=== PATIENT | female | born 1990 | race Caucasian/White ===

== ENCOUNTER 2017-01-05 14:13 | Emergency (ER) | payer SELFPAY ==
[~2017-01-05] VITALS: Ht 149.9 cm; Wt 89.8 kg
[~2017-01-05 14:13] MED LIST: ACHD5005 PO; ACYC-109 PO; BENZ100C8 PO; BUDE6HFA IH; CEFD300C3 PO; CITA40TA19 PO; CPR500T PO; FLT05NA16 NSEACH; GUAN1TAB PO; HYDR-2858 PO; HYDR-700 PO; HYDR50SY PO; LEVO200T30 PO; LIDO20SO20 PO; LORA1TAB59 PO; LURA60TA PO; ONDAN4ODT PO; PHEN100T17 PO; PRD20T PO; RIZA10TA25 PO; SULF1TAB7 PO; TRAZ150T42 PO; TRM50T PO; VALA100033 PO; ZLP5T PO; [UNRECOGNIZED DRUG - CODE] IH
--- NOTE | 2017-01-05 15:08 | ED Headache ---
General Chief Complaint: Head/Cervical Problems Stated Complaint: MIGRANE,VOMITTING Source: patient Exam Limitations: no limitations History of Present Illness Time seen by provider: 15:07 Initial Comments To ER with a global headache associated with vomiting for the past 4 days. This is characteristic of her frequent migraines. She denies any fevers or chills. Pain is on the back of her head and left side of her head which is typical of her headaches. Slow in onset, not sudden. She did not go to the [facility] walk-in clinic because she states she did not have the $25 that they require upfront. Timing/Duration: constant Severity/Quality: moderate Location: global Prior Headaches/Recent Trauma: frequent headaches Associated Symptoms: No confusion, No fatigue, No facial pain, No fever/chills , No flushing, nausea/vomiting, No nasal congestion, No nasal drainage, No numbness in legs/feet Allergies and Home Medications Allergies Coded Allergies: Sulfa (Sulfonamide Antibiotics) (Unverified Allergy, Unknown, 07/25/14) penicillin G (Verified Allergy, Unknown, 07/25/14) Home Medications Budesonide/Formoterol Fumarate 1 Inhaler Aero, Unknown Dose IH RTBID, (Reported) Citalopram Hydrobromide 40 Mg Tablet, 1 EACH PO DAILY, (Reported) Guanfacine Hcl 1 Mg Tablet, 1 MG PO TID, (Reported) Hydroxyzine Hcl 50 Mg Tablet, 50 MG PO TID, (Reported) Levothyroxine Sodium 200 Mcg Tablet, 225 MCG PO DAILY, (Reported) Loxapine 10 Mg Aer.pow.ba, 10 MG IH UD, (Reported) Trazodone Hcl 150 Mg Tablet, 150 MG PO DAILY, (Reported) Zolpidem Tartrate 5 Mg Tablet, Unknown Dose PO HS, (Reported) Constitutional: see HPI Eyes: No Symptoms Reported Ears, Nose, Mouth, Throat: no symptoms reported Respiratory: no symptoms reported Cardiovascular: no symptoms reported Genitourinary: no symptoms reported Musculoskeletal: no symptoms reported Skin: no symptoms reported Psychiatric/Neurological: See HPI, Headache Past Hkyszff-Igrngx-Vmyrjl Hx Patient Social History Recent Foreign Travel: No Contact w/Someone Who Travel: No Seasonal Allergies Seasonal Allergies: No Surgeries HX Surgeries: Yes (ORBITAL/FACIAL RECONSTRUCTION,MOLE REMOVALS,WISDOM TEETH REMOVAL, I&D'S) Respiratory Hx Respiratory Disorders: Yes Respiratory Disorders: Asthma, Chronic Bronchitis Cardiovascular Hx Cardiac Disorders: No Neurological Hx Neurological Disorders: Yes Neurological Disorders: Concussion, Headaches /Migraines Reproductive System Sexually Transmitted Disease: Yes (HERPES) Female Reproductive Disorders: Denies Genitourinary Hx Genitourinary Disorders: No Gastrointestinal Hx Gastrointestinal Disorders: Yes Gastrointestinal Disorders: Gastroesophageal Reflux Musculoskeletal Hx Musculoskeletal Disorders: No Endocrine Hx Endocrine Disorders: Yes Endocrine Disorders: Hypothyroidsim HEENT HX ENT Disorders: No Cancer Hx Cancer: No Psychosocial Hx Psychiatric Problems: Yes (PANIC ATTACKS) Behavioral Health Disorders: ADD/ADHD, Sleep Difficulties, Anxiety, Bipolar, Depression Integumentary HX Skin/Integumentary Disorder: Yes (ORAL AND GENITAL, "STAPH" AXILLARY ABSCESS ) Skin/Integumentary Disorders: Herpes Blood Transfusions Hx Blood Disorders: No Adverse Reaction to a Blood Tr: No Physical Exam Vital Signs Capillary Refill : General Appearance: WD/WN, no apparent distress HEENT: PERRL/EOMI, normal ENT inspection, TMs normal Neck: non-tender, full range of motion Cardiovascular: regular rate, rhythm, no murmur Respiratory: normal breath sounds, no respiratory distress, no accessory muscle use Gastrointestinal: normal bowel sounds, non tender, soft Extremities: normal range of motion, non-tender Psychiatric: alert, oriented x 3 Crainal Nerves: normal hearing, normal speech, PERRL Skin: normal color, warm/dry Progress/Results/Core Measures Results/Orders My Orders Orders - ELANA GRIJALVA APRN Prochlorperazine Injection (Compazine In (01/05/17 15:15) Diphenhydramine Injection (Benadryl Inje (01/05/17 15:15) Ketorolac Injection (Toradol Injection) (01/05/17 15:15) Departure Impression Impression: Primary Impression: Headache Disposition: 01 HOME, SELF-CARE Condition: Improved Departure-Patient Inst. Decision time for Depature: 15:09 Referrals: [facility] (PCP/Family) Primary Care Physician Patient Instructions: Headache, Adult (DC) Add. Discharge Instructions: 1. Follow-up with [facility] 2. Return to ER for any concerns All discharge instructions reviewed with patient and/or family. Voiced understanding. ELANA GRIJALVA APRN Jan 05, 2017 15:08
[2017-01-05] MEDS ORDERED: KETOROLAC 60 MG/2 ML VIAL IM ONE (15:15)
[2017-01-05] MEDS ORDERED: PROCHLORPERAZINE 10 MG/2ML INJ (COMPAZINE) IM ONE (15:15)
[2017-01-05] MEDS ORDERED: diphenhydrAMINE 50 MG/ML INJ (BENADRYL) IM ONE (15:15)
[2017-01-05] MEDS ORDERED: cloNIDine 0.1 MG (CATAPRES) TAB PO ONE (15:30)
[2017-01-05 16:21] VITALS: BP 165/114
== END 2017-01-05 16:22 | disposition home or self-care (01) ==
LOC: EDUNIT# 14:13 → ER 14:15
DX: R51 Headache (principal); Z79.899 Other long term (current) drug therapy
CPT/HCPCS: 96372; 99282

== ENCOUNTER 2018-02-03 13:12 | Emergency (ER) | payer SELFPAY ==
[~2018-02-03] VITALS: Ht 157.5 cm; Wt 40.4 kg
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
--- OUTSIDE RECORDS SUMMARY | 2018-02-03 13:18 | XMS REPORT ---
Author Author TEE CALLE Organization [facility] Address [address] [place] [address] Care Team Providers Care School Resource Officer Name Role Phone TEE CALLE Unavailable PROBLEMS Type Condition ICD9-CM Code WGS02-SM Code Onset Dates Condition Status SNOMED Code Problem Postoperative hypothyroidism E89.0 Active 61267246 Problem Obesity E66.9 Active 383049311 Problem Bipolar 2 disorder F31.81 Active 58439596 Problem Panic disorder [episodic paroxysmal anxiety] without agoraphobia F41.0 Active 22221728 Problem COLLEEN (generalized anxiety disorder) F41.1 Active 00755856 Problem Attention deficit disorder F90.0 Active 527540473 Problem Generalized anxiety disorder F41.1 Active 12099436 Problem Acne L70.9 Active 11671816 Problem Hypertension I10 Active 06402807 ALLERGIES No Information SOCIAL HISTORY Never Assessed PLAN OF CARE VITAL SIGNS MEDICATIONS Medication Instructions Dosage Frequency Start Date End Date Duration Status Concerta 27 MG Orally Once a day for ADHD 1 tablet in the morning Nov 28 days Active RESULTS No Results PROCEDURES No [...]
--- OUTSIDE RECORDS SUMMARY | 2018-02-03 13:19 | XMS REPORT ---
Author Author LUC TEE 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 Name Role Phone TEE CALLE Unavailable PROBLEMS Type Condition ICD9-CM Code VVQ05-NA Code Onset Dates Condition Status SNOMED Code Problem Acne L70.9 Active 54922226 Problem Sciatica of right side M54.31 Active 44450101 Problem Panic disorder [episodic paroxysmal anxiety] without agoraphobia F41.0 Active 17071157 Problem Attention-deficit hyperactivity disorder, predominantly inattentive type F90.0 Active 04620132 Problem Current nonadherence to medical treatment Z91.19 Active 7396873 Problem Acquired hypothyroidism E03.9 Active 667434912 Problem Essential hypertension I10 Active 61523709 Problem Primary insomnia F51.01 Active 0328942 Problem Migraine with aura and without status migrainosus, not intractable G43.109 Active 2134772 Problem Abnormal liver function K76.89 Active 69742780 Problem Obesity E66.9 Active 809956409 Problem Bipolar 2 disorder F31.81 Active 62450333 Problem Postoperative hypothyroidism E89.0 Active 30588138 Problem Generalized anxiety disorder F41.1 Active 73625123 ALLERGIES No Information ENCOUNTERS Encounter Location Date Diagnosis [facility] [id number], [place] [address] Dec, [facility] [address], [place] [address] Nov, Normal physical exam Z00.00 and Enlarged lymph node R59.9 [facility] [id number] [place] [address] 29975- 5216 Nov, Enlarged lymph node R59.9 ; Abnormal liver function K76.89 and Hypothyroid E03.9 [facility] [address] [place] [address] 81075- 1508 Oct, Bipolar 2 disorder F31.81 [facility] [address] [place] [address] 41133- 1082 Oct, Sciatica of right side M54.31 and Essential hypertension I10 [facility] [id number] [place] [address] 67053- 4959 Oct, [facility] [id number] [place] [address] 29400- 4690 Aug, Hypothyroid E03.9 [facility] [id number] [place] [address] 02278- 7722 Aug, [facility] [id number] [place] [address] 82969- 3587 Aug, Bipolar 2 disorder F31.81 [facility] [id number] [place] [address] 19509- 3746 Aug, Abnormal liver function K76.89 [facility] [id number] [place] [address] 84113- 4657 Jul, Bipolar 2 disorder F31.81 [facility] [id number] [place] [address] 19949 -4496 Jul, [facility] [id number] [place] [address] 21489- 9951 Jul, Bipolar 2 disorder F31.81 ; Generalized anxiety disorder F41.1 ; Attention-deficit hyperactivity disorder, predominantly inattentive type F90.0 and Current nonadherence to medical treatment Z91.19 [facility] [id number] [place] [address] 49592 -8740 14 Jul, 2017 Essential hypertension I10 ; Other viral agents as the cause of diseases classified elsewhere B97.89 ; Acute upper respiratory infection, unspecified J06.9 and BMI 40.0-44.9, adult Z68.41 [facility] [id number] [place] [address] 77831- 1530 Jul, [facility] [id number] [place] [address] 90155- 2462 Jul, [facility] [id number] [place] [address] 31049- 1166 Jun, [facility] [id number] [place] [address] 36890- 8268 Jun, [facility] [address] 70292- 0796 Jun, Dysuria R30.0 ; Urinary tract infection, site not specified N39.0 ; Hematuria, unspecified R31.9 ; Sciatica of right side M54.31 ; Migraine with aura and without status migrainosus, not intractable G43.109 ; Primary insomnia F51.01 ; Essential hypertension I10 and Acquired hypothyroidism E03.9 [facility] [id number] [place] [address] 27589- 4425 Jun, Bipolar 2 disorder F31.81 [facility] [id number] [place] [address] 18737- 9280 Jun, Bipolar 2 disorder F31.81 [facility] [id number] [place] [address] 54594- 1538 May, Sore throat J02.9 ; Acute serous otitis media of left ear, recurrence not specified H65.02 and Hypertension I10 [facility] [id number] [place] [address] 14078- 5065 May, Bipolar 2 disorder F31.81 [facility] [id number] [place] [address] 62442- 3019 Apr, [facility] [id number] [place] [address] 51515- 1623 Apr, Bipolar 2 disorder F31.81 [facility] [id number] [place] [address] 71672- 9527 Mar, [facility] [id number] [place] [address] 21113- 1546 Feb, Bipolar 2 disorder F31.81 ; Attention deficit disorder F90.0 ; COLLEEN (generalized anxiety disorder) F41.1 and Panic disorder [episodic paroxysmal anxiety] without agoraphobia F41.0 [facility] [address] [address] 6[address] January, Bipolar 2 disorder F31.81 [facility] [id number] [place] [address] 15829- 5943 Dec, [facility] [id number] [place] [address] 26135- 2689 Dec, [facility] [id number] [place] [address] 99669- 3191 Dec, [facility] [id number] [place] [address] 28475- 9424 Dec, Generalized anxiety disorder F41.1 ; Bipolar 2 disorder F31.81 and Panic disorder [episodic paroxysmal anxiety] without agoraphobia F41.0 [facility] [id number] [address]- 2163 Dec, [facility] [id number] [place] [address] 64492- 5486 Dec, [facility] [id number] [place] [address] 57923- 9470 Nov, [facility] [id number] [place] [address] 40011- 4737 Nov, [facility] [id number] [place] [address] 39731- 9824 Nov, [facility] [id number] [place] [address] 70791- 9542 Oct, [facility] [id number] [place] [address] 33498- 9402 Oct, [facility] [id number] [place] [address] 47161- 5182 Oct, [facility] [address] [address]- 8806 Oct, [facility] [address], [place] [address]- 0096 Oct, [facility] [id number] [address]- 0266 Sep, Bipolar 2 disorder F31.81 ; COLLEEN (generalized anxiety disorder) F41.1 ; Attention deficit disorder F90.0 and Panic disorder [episodic paroxysmal anxiety] without agoraphobia F41.0 [facility] [id number] [place] [address] 92762- 7513 Sep, [facility] [id number] [address]- 0753 Sep, [facility] [id number] [place] [address] 79839- 7133 Sep, [facility] [address] 7[address] Aug, [facility] [id number] 5233 Aug, [facility] [address] 1828 Aug, [facility] [address] [address] Aug, [facility] [address], [place] [address]- 0844 Jul, [facility] [id number], [place] [address]- 0237 Jul, [facility] [address], [place] [address]- 6346 Jul, [facility] [address], [place] [address]- 8816 Jun, [facility] [id number] [place] [address] 37441- 4474 Jun, Bipolar 2 disorder F31.81 ; Attention deficit disorder F90.0 ; COLLEEN (generalized anxiety disorder) F41.1 and Panic disorder [episodic paroxysmal anxiety] without agoraphobia F41.0 [facility] [id number] [place] [address] 44301- 1569 Jun, [facility] [address] 31523- 3658 Jun, [facility] [address] 42495- 7144 Jun, Right foot pain M79.671 and Nausea and vomiting in adult R11.2 [facility] [address] 99204- 7779 May, [facility] [address] 86516- 3818 May, Other sinusitis, unspecified chronicity J32.9 ; Environmental allergies Z91.09 ; Other chronic pain G89.29 and Sacrococcygeal disorders, not elsewhere classified M53.3 [facility] [id number] [place] [address] 65067 -5798 May, Acute non-recurrent pansinusitis J01.40 and Gastroenteritis K52.9 [facility] [id number] [place] [address] 08261- 7857 May, [facility] [id number] [place] [address] 41664- 1107 May, [facility] [address] 75127- 0624 Apr, Bronchitis J40 [facility] [id number] [place] [address] 88275- 2288 Apr, [facility] [address] 39241- 6300 Apr, [facility] [address], [place] [address]- 3873 Apr, [facility] [id number] [place] [address] 64604 -0636 Apr, Nausea and vomiting in adult R11.2 [facility] [id number] [place] [address] 68002- 5540 Apr, Nausea and vomiting in adult R11.2 [facility] [id number] [place] [address] 26904- 2118 Apr, Bipolar 2 disorder F31.81 ; Generalized anxiety disorder F41.1 ; Panic disorder [episodic paroxysmal anxiety] without agoraphobia F41.0 ; Attention deficit disorder F90.0 and COLLEEN (generalized anxiety disorder) F41.1 [facility] [id number] [place] [address] 92334- 8182 Apr, [facility] [id number] [place] [address] 60133- 5746 Mar, [facility] [id number] [place] [address] 87621- 0231 Mar, [facility] [id number] [place] [address] 41836- 3193 Mar, [facility] [id number] [place] [address] 84084- 4152 Mar, Bipolar 2 disorder F31.81 ; Attention deficit disorder F90.0 ; COLLEEN (generalized anxiety disorder) F41.1 and Panic disorder [episodic paroxysmal anxiety] without agoraphobia F41.0 [facility] [address] [place] [address] 87812- 0664 Mar, [facility] [address] [place] [address] 36499- 6749 Feb, Bipolar 2 disorder F31.81 ; Generalized anxiety disorder F41.1 and Attention deficit disorder F90.0 [facility] [id number] [place] [address] 25337- 1025 Feb, Generalized anxiety disorder F41.1 [facility] [id number] [place] [address] 80424- 7295 Feb, Generalized anxiety disorder F41.1 ; Attention deficit disorder F90.0 and Bipolar 2 disorder F31.81 [facility] [id number] [place] [address] 54458- 4660 Feb, Bipolar 2 disorder F31.81 ; Generalized anxiety disorder F41.1 ; Attention deficit disorder F90.0 and Insomnia, unspecified type G47.00 [facility] [id number] [place] [address] 02386- 7166 Feb, Excessive sweating R61 and Breast lump in upper outer quadrant N63 [facility] [id number] [place] [address] 76413 -3385 January, Low back pain M54.5 ; Other chronic pain G89.29 and Urinary tract infection, site unspecified N39.0 [facility] [id number] [place] [address] 43564- 7380 January, Bipolar II disorder F31.81 [facility] [id number] [place] [address] 35737- 2286 January, [facility] [id number] [place] [address] 82761- 1394 January, Insomnia, unspecified type G47.00 and Grief F43.20 [facility] [id number] [place] [address] 17156- 8805 January, [facility] [id number] [place] [address] 96922- 2662 Dec, [facility] [id number] [place] [address] 62980- 5012 Dec, [facility] [id number] [place] [address] 03586- 6959 Dec, Bipolar 2 disorder F31.81 ; Generalized anxiety disorder F41.1 and Attention deficit disorder F90.0 [facility] [id number] [place] [address] 13304- 7186 Dec, Sinusitis J32.9 [facility] [id number] [place] [address] 06620- 4261 14 Dec, 2015 Sinusitis J32.9 and Hypothyroid E03.9 [facility] [address] 97489- 8933 Dec, [facility] [address] 45390 -0063 Dec, Cough R05 and Allergic rhinitis J30.9 [facility] [address] 90435- 2397 Nov, Hypertension I10 ; Obesity E66.9 and Acne L70.9 [facility] [id number] [place] [address] 31910- 0827 Nov, [facility] [address] 88301- 2809 Oct, [facility] [id number] [place] [address] 93496- 4122 Oct, [facility] [address] 77013- 6821 Oct, [facility] [id number] [place] [address] 20105- 9073 Oct, [facility] [address] 04017- 5290 Sep, Lymphadenitis I88.9 ; Essential hypertension I10 and Acne, unspecified acne type L70.9 [facility] [id number] [place] [address] 52704- 9401 Sep, [facility] [address], [place] [address]- 6829 Sep, [facility] [id number] [place] [address] 05279- 6569 Sep, [facility] [id number] [place] [address] 00780- 1856 Sep, Acquired hypothyroidism E03.9 [facility] [id number] [place] [address] 09855- 3071 Aug, Acquired hypothyroidism E03.9 [facility] [id number] [place] [address] 72587- 4407 Aug, Furuncle L02.92 [facility] [id number] [place] [address] 32674- 9674 Aug, [facility] [id number] [place] [address] 91991- 7056 Aug, Bipolar 2 disorder F31.81 ; Generalized anxiety disorder F41.1 ; Attention deficit disorder F90.0 and Obesity E66.9 [facility] [id number] [place] [address] 87092- 3405 Aug, [facility] [id number] [place] [address] 77055- 7470 Aug, [facility] [id number] [place] [address] 97248- 2225 Aug, Acquired hypothyroidism E03.9 [facility] [id number] [place] [address] 20544- 0567 Jul, Acquired hypothyroidism E03.9 ; Upper respiratory tract infection, unspecified type J06.9 and Nonintractable migraine, unspecified migraine type G43.009 [facility] [address], [place] [address]- 0547 14 Jun, 2015 Acute pharyngitis, unspecified J02.9 [facility] [id number] [place] [address] 81736- 6661 May, Bipolar II disorder 296.89 ; Attention deficit disorder of childhood without mention of hyperactivity 314.00 ; Generalized anxiety disorder 300.02 and Morbid obesity with BMI of 45.0-49.9, adult 278.01 [facility] [address], [place] [address]- 1116 May, Sinusitis 473.9 [facility] [id number] [place] [address] 62007- 0556 Apr, [facility] [id number] [place] [address] 71318- 8316 Mar, [facility] [id number] [place] [address] 57043- 2466 Mar, Bipolar II disorder 296.89 ; Generalized anxiety disorder 300.02 ; Obesity, unspecified 278.00 and Attention deficit disorder 314.00 [facility] [id number] [place] [address] 85872- 5736 Feb, [facility] [id number] [place] [address] 34887- 1746 January, [facility] [id number] [place] [address] 19228- 5416 January, [facility] [id number] [address]- 0856 January, [facility] [id number] [place] [address] 16444- 2546 January, [facility] [id number] [place] [address] 84327- 6946 Dec, [facility] [id number] [place] [address] 99339- 1386 Dec, [facility] [id number] [address]- 2546 30 Nov, 2014 [facility] [id number] [place] [address] 52967- 5286 Nov, [facility] [place] [facility] [address] [id number] [place] [address]- 5873 18 Nov, 2014 [facility] [place] [facility] [address] [id number] [place] [address]- 4169 11 Nov, 2014 [facility] [place] [facility] [address] [id number] [place] [address]- 9278 Nov, [facility] [place] [facility] [address] [id number] [place] [address]- 9446 Nov, [facility] [place] [facility] [address] [id number] [place] [address]- 6377 11 Nov, 2014 [facility] [place] [facility] [address] [id number] [place] [address]- 3590 Nov, [facility] [place] [facility] [address] [id number] [place] [address]- 0365 Nov, [facility] [place] [facility] [address] [id number] [place] [address]- 3914 Nov, [facility] [place] [facility] [address] [id number] [place] [address]- 7565 10 Nov, 2014 [facility] [place] [facility] [address] [id number] [place] [address]- 6001 Nov, [facility] [place] [facility] [address] [id number] [place] [address]- 0160 Nov, [facility] [place] [facility] [address] [id number] [place] [address]- 2819 Nov, [facility] [place] [facility] [address] [id number] [place] [address]- 8731 Oct, [facility] [place] [facility] [address] [id number] [place] [address]- 0516 Oct, [facility] [place] [facility] [address] [id number] [place] [address]- 5008 Oct, [facility] [place] [facility] [address] [id number] [place] [address]- 6660 Oct, 2014 [facility] [place] [facility] [address] [id number] [place] [address]- 8326 Oct, 2014 [facility] [place] [facility] [address] [id number] [place] [address]- 3696 Oct, 2014 [facility] [place] [facility] [address] [id number] [place] [address]- 0716 Oct, 2014 [facility] [place] [facility] [address] [id number] [place] [address]- 9894 Oct, 2014 [facility] [place] [facility] [address] [id number] [place] [address]- 9546 Oct, 2014 [facility] [place] [facility] [address] [id number] [place] [address]- 1887 Oct, 2014 [facility] [place] [facility] [address] [id number] [place] [address]- 5664 Oct, [facility] [place] [facility] [address] [id number] [place] [address]- 3727 Oct, [facility] [place] [facility] [address] [id number] [place] [address]- 6695 Sep, [facility] [place] [facility] [address] [facility] [id number] [place] [address]- 3288 Sep, [facility] [place] [facility] [address] [id number] [place] [address] Sep, [facility] [place] [facility] [address] [id number], [place] [address] Sep, [facility] [place] [facility] [address] [id number] [place] [address] Sep, [facility] [place] [facility] [address] [id number] [place] [address] Sep, [facility] [place] [facility] [address] [id number] [place] [address] Sep, [facility] [place] [facility] [address] [id number] [place] [address] Sep, [facility] [place] [facility] [address] [id number] [place] [address] Aug, [facility] [place] [facility] [address] [id number] [place] [address] Aug, [facility] [place] [facility] [address] [id number] [place] [address] Aug, [facility] [place] [facility] [address] [id number] [place] [address] Aug, [facility] [place] [facility] [address] [id number] [place] [address] Aug, [facility] [place] [facility] [address] [id number] [place] [address] Aug, [facility] [place] [facility] [address] [id number] [place] [address] Aug, [facility] [place] [facility] [address] [id number] [place] [address] Aug, [facility] [place] [facility] [address] [id number] [place] [address] Aug, [facility] [place] [facility] [address] [id number] [place] [address] Aug, [facility] [place] [facility] [address] [id number] [place] [address] Aug, [facility] [place] [facility] [address] [id number] [place] [address] Aug, [facility] [place] [facility] [address] [id number] [place] [address] Aug, [facility] [place] [facility] [address] [id number] [place] [address] Aug, [facility] [place] [facility] [address] [id number] [place] [address] 13 Jul, 2014 [facility] [place] [facility] [address] [id number] [place] [address] Jul, [facility] [place] [facility] [address] [id number] [place] [address] Jul, [facility] [place] [facility] [address] [id number] [place] [address] Jul, [facility] [place] [facility] [address] [id number] [place] [address] Jul, [facility] [place] [facility] [address] [id number] [place] [address] Jul, [facility] [place] [facility] [address] [id number] [place] [address] Jul, [facility] [place] [facility] [address] [id number] [place] [address] Jul, [facility] [place] [facility] [address] [id number] [place] [address] Jul, [facility] [place] [facility] [address] [id number] [place] [address] Jul, [facility] [place] [facility] [address] [facility] [id number] [place] [address] Jul, [facility] [place] [facility] [address] [id number] [place] [address] 03 Jul, 2014 [facility] [place] [facility] [address] [id number], [place] [address] 16 Jun, 2014 [facility] [place] [facility] [address] [id number] [place] [address] 3595 16 Jun, 2014 [facility] [place] [facility] [address] [id number] [place] [address]- 4[address] 15 Jun, 2014 [facility] [place] [facility] [address] [id number][place] [address] 132[address] 14 Jun, 2014 [facility] [place] [facility] [address] [id number] [place] [address] 90[address] 14 Jun, 2014 [facility] [place] [facility] [address] [id number] [place] [address]- 5582 14 Jun, 2014 [facility] [place] [facility] [address] [id number] [place] [address]- 2813 14 Jun, 2014 [facility] [place] [facility] [address] [id number] [place] [address]- 2414 13 Jun, 2014 [facility] [place] [facility] [address] [id number] [place] [address] 3105 10 Jun, 2014 [facility] [place] [facility] [address] [id number] [place] [address]- 2391 10 Jun, 2014 [facility] [place] [facility] [address] [id number] [place] [address]- 6645 09 Jun, 2014 [facility] [place] [facility] [address] [id number] [place] [address]- 9066 09 Jun, 2014 [facility] [place] [facility] [address] [id number] [place] [address]- 9938 06 Jun, 2014 [facility] [place] [facility] [address] [id number] [place] [address]- 0934 06 Jun, 2014 [facility] [place] [facility] [address] [id number] [place] [address]- 1004 16 May, 2013 [facility] [place] [facility] [address] [id number] [place] [address]- 6643 15 May, 2013 [facility] [place] [facility] [address] [id number] [place] [address]- 0957 15 May, 2014 [facility] [place] [facility] [address] [id number] [place] [address]- 6694 15 May, 2013 [facility] [place] [facility] [address] [id number] [place] [address]- 0209 15 May, 2013 [facility] [place] [facility] [address] [id number] [place] [address]- 3444 15 May, 2013 [facility] [place] [facility] [address] [id number] [place] [address]- 7591 15 May, 2013 [facility] [place] [facility] [address] [id number] [place] [address]- 8167 12 May, 2013 [facility] [place] [facility] [address] [id number] [place] [address]- 2027 12 May, 2013 [facility] [place] [facility] [address] [id number] [place] [address]- 0462 10 May, 2013 [facility] [place] [facility] [address] [id number] [place] [address]- 9390 10 May, 2013 [facility] [place] [facility] [address] [id number] [place] [address]- 4806 02 May, 2013 [facility] [place] [facility] [address] [id number] [place] [address]- 9859 May, 2013 [facility] [place] [facility] [address] [id number] [place] [address]- 4480 May, 2013 [facility] [place] [facility] [address] [id number] [place] [address]- 5653 May, 2013 [facility] [place] [facility] [address] [id number] [place] [address]- 7311 Apr, [facility] [place] [facility] [address] [id number] [place] [address]- 5082 Apr, [facility] [place] [facility] [address] [id number] [place] [address]- 2545 Apr, [facility] [place] [facility] [address] [id number] [place] [address]- 7820 Apr, [facility] [place] [facility] [address] [id number] [place] [address]- 6510 Apr, [facility] [place] [facility] [address] [id number] [place] [address]- 5687 Apr, [facility] [place] [facility] [address] [id number] [place] [address]- 5823 Apr, [facility] [place] [facility] [address] [id number] [place] [address]- 0988 Apr, [facility] [place] [facility] [address] [id number] [place] [address]- 5898 Apr, [facility] [place] [facility] [address] [id number] [place] [address]- 4114 Mar, [facility] [place] [facility] [address] [id number] [place] [address]- 0590 Mar, [facility] [place] [facility] [address] [id number] [place] [address]- 9473 Mar, [facility] [place] [facility] [address] [id number] [place] [address]- 2248 Mar, [facility] [place] [facility] [address] [id number] [place] [address]- 6262 Mar, [facility] [place] [facility] [address] [id number] [place] [address]- 6070 Mar, [facility] [place] [facility] [address] [id number] [place] [address] 4077 Mar, [facility] [place] [facility] [address] [id number] [place] [address]- 7623 Mar, [facility] [place] [facility] [address] [id number] [place] [address]- 4074 Mar, [facility] [place] [facility] [address] [id number] [place] [address]- 5495 Mar, [facility] [place] [facility] [address] [id number] [place] [address]- 4378 Mar, [facility] [place] [facility] [address] [id number] [place] [address]- 8210 Mar, [facility] [place] [facility] [address] [id number] [place] [address]- 8504 Mar, [facility] [place] [facility] [address] [id number] [place] [address]- 1056 Mar, 2013 [facility] [place] [facility] [address] [id number] [place] [address]- 3590 Mar, [facility] [place] [facility] [address] [id number] [place] [address]- 8015 Mar, [facility] [place] [facility] [address] [id number] [place] [address]- 1741 Mar, [facility] [place] [facility] [address] [id number] [place] [address]- 8129 Mar, [facility] [place] [facility] [address] [id number] [place] [address]- 5832 Feb, [facility] [place] [facility] [address] [id number] [place] [address]- 7580 Feb, [facility] [place] [facility] [address] [id number] [place] [address]- 0250 Feb, [facility] [place] [facility] [address] [id number] [place] [address]- 4004 Feb, [facility] [place] [facility] [address] [id number] [place] [address]- 2839 Feb, [facility] [place] [facility] [address] [id number] [place] [address]- 4194 Feb, [facility] [place] [facility] [address] [id number] [place] [address]- 0060 Feb, [facility] [place] [facility] [address] [id number] [place] [address]- 2460 Feb, [facility] [place] [facility] [address] [id number] [place] [address]- 7176 Feb, [facility] [place] [facility] [address] [id number] [place] [address]- 1047 Feb, [facility] [place] [facility] [address] [id number] [place] [address]- 4314 January, [facility] [address] [id number] [place] [address]- 3440 January, [facility] [place] [facility] [address] [id number] [place] [address] January, [facility] [place] [facility] [address] [id number] [place] [address]- 6201 January, [facility] [place] [facility] [address] [id number] [place] [address]- 6391 January, [facility] [place] [facility] [address] [id number] [place] [address]- 5197 January, [facility] [place] [facility] [address] [id number] [place] [address]- 2686 January, [facility] [address] [id number] [place] [address]- 4299 January, [facility] [place] [facility] [address] [id number] [place] [address]- 5899 January, [facility] [place] [facility] [address] [id number] [place] [address]- 2272 January, [facility] [place] [facility] [address] [id number] [place] [address]- 3631 January, [facility] [place] [facility] [address] [id number] [place] [address]- 3530 January, [facility] [place]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
--- OUTSIDE RECORDS SUMMARY | 2018-02-03 13:20 | XMS REPORT ---
Author Author LUC TEE Organization [facility] Address [address] [place] [address] Care Team Providers Care Novelty Maker Name Role Phone TEE CALLE Unavailable PROBLEMS Type Condition ICD9-CM Code ZCG90-QC Code Onset Dates Condition Status SNOMED Code Problem Acne L70.9 Active 63197546 Problem Sciatica of right side M54.31 Active 66893715 Problem Panic disorder [episodic paroxysmal anxiety] without agoraphobia F41.0 Active 06804962 Problem Attention-deficit hyperactivity disorder, predominantly inattentive type F90.0 Active 18739875 Problem Current nonadherence to medical treatment Z91.19 Active 0961740 Problem Acquired hypothyroidism E03.9 Active 143591824 Problem Essential hypertension I10 Active 70007153 Problem Primary insomnia F51.01 Active 9131931 Problem Migraine with aura and without status migrainosus, not intractable G43.109 Active 5539168 Problem Abnormal liver function K76.89 Active 50507011 Problem Obesity E66.9 Active 372930434 Problem Bipolar 2 disorder F31.81 Active 37061083 Problem Postoperative hypothyroidism E89.0 Active 50787846 Problem Generalized anxiety disorder F41.1 Active 39330497 ALLERGIES Substance Reaction Event Type Date Status Penicillin V Potassium hives Drug Allergy Feb, Active Hydrocodone Failed UDS Non Drug Allergy Feb, Active Benzodiazepines Failed UDS Non Drug Allergy Feb, Active ENCOUNTERS Encounter Location Date Diagnosis [facility] [address] [facility] [id number] [address] Dec, [facility] [address] [id number] [address] Nov, Enlarged lymph node R59.9 ; Abnormal liver function K76.89 and Hypothyroid E03.9 [facility] [address] [facility] [id number] [address] Oct, Bipolar 2 disorder F31.81 [facility] [id number] [place] [address] 33350- 1850 Oct, Sciatica of right side M54.31 and Essential hypertension I10 [facility] [id number] [place] [address] 52694- 9629 Oct, [facility] [id number] [place] [address] 03823- 0036 Aug, Hypothyroid E03.9 [place] [id number] [place] [address] 69695- 2689 Aug, [place] [id number] [place] [address] 31181- 4549 Aug, Bipolar 2 disorder F31.81 [place] [id number] [place] [address] 47890- 6905 Aug, Abnormal liver function K76.89 [place] [id number] [place] [address] 86762- 4860 Jul, Bipolar 2 disorder F31.81 [facility] [place] [id number] [place] [address] 68262 -5902 Jul, [place] [id number] [place] [address] 39110- 1177 Jul, Bipolar 2 disorder F31.81 ; Generalized anxiety disorder F41.1 ; Attention-deficit hyperactivity disorder, predominantly inattentive type F90.0 and Current nonadherence to medical treatment Z91.19 [facility] [address] [place] [address] 10672 -0145 14 Jul, 2017 Essential hypertension I10 ; Other viral agents as the cause of diseases classified elsewhere B97.89 ; Acute upper respiratory infection, unspecified J06.9 and BMI 40.0-44.9, adult Z68.41 [facility] [id number] [place] [address] 12552- 9034 Jul, [facility] [id number] [place] [address] 93533- 0845 Jul, [facility] [address] 12817- 2739 Jun, [facility] [id number] [place] [address] 98685- 7065 Jun, [facility] [address] 78253- 6896 Jun, Dysuria R30.0 ; Urinary tract infection, site not specified N39.0 ; Hematuria, unspecified R31.9 ; Sciatica of right side M54.31 ; Migraine with aura and without status migrainosus, not intractable G43.109 ; Primary insomnia F51.01 ; Essential hypertension I10 and Acquired hypothyroidism E03.9 [place] [id number] [place] [address] 57738- 0032 Jun, Bipolar 2 disorder F31.81 [place] [id number] [place] [address] 32358- 0256 Jun, Bipolar 2 disorder F31.81 [place] [id number] [place] [address] 78105- 8038 May, Sore throat J02.9 ; Acute serous otitis media of left ear, recurrence not specified H65.02 and Hypertension I10 [place] [id number] [place] [address] 74506- 6653 May, Bipolar 2 disorder F31.81 [facility] [id number] [place] [address] 66924- 5273 Apr, [place] [id number] [place] [address] 63641- 8740 Apr, Bipolar 2 disorder F31.81 [facility] [id number] [place] [address] 61578- 1261 Mar, [facility] [id number] [place] [address] 80174- 6416 Feb, Bipolar 2 disorder F31.81 ; Attention deficit disorder F90.0 ; COLLEEN (generalized anxiety disorder) F41.1 and Panic disorder [episodic paroxysmal anxiety] without agoraphobia F41.0 [facility] [address] [address] 8[address] January, Bipolar 2 disorder F31.81 [facility] [id number] [place] [address] 49423- 0103 Dec, [facility] [id number] [place] [address] 23147- 9042 Dec, [facility] [id number] [place] [address] 66258- 9254 Dec, [facility] [id number] [place] [address] 83520- 5994 Dec, Generalized anxiety disorder F41.1 ; Bipolar 2 disorder F31.81 and Panic disorder [episodic paroxysmal anxiety] without agoraphobia F41.0 [facility] [address] [address] 8912 Dec, [facility] [id number] [place] [address] 14490- 5962 Dec, [facility] [address] [address]- 7302 Nov, [facility] [id number] [place] [address] 47707- 8538 Nov, [facility] [address] [place] [address] 70348- 1035 Nov, [facility] [id number] [place] [address] 531370- 8683 Oct, [facility] [address] [address]- 5446 Oct, [facility] [id number] [place] [address] 28249- 2700 Oct, [facility] [address] [address] Oct, [facility] [id number] [place] [address], [place] 4[address] Oct, [facility] [address] [address] Sep, Bipolar 2 disorder F31.81 ; COLLEEN (generalized anxiety disorder) F41.1 ; Attention deficit disorder F90.0 and Panic disorder [episodic paroxysmal anxiety] without agoraphobia F41.0 [facility] [id number] [place] [address], [place] 1777 Sep, [facility] [id number] [place] [address], [place] [address]- 4530 Sep, [facility] [id number] [place] [address], [place] [address]- 3143 Sep, [facility] [place] [facility] [address] [address]- 0744 Aug, [facility] [place] [id number] [place] [address], [place] 0724 Aug, [facility] [place] [facility] [address] 4274 Aug, [facility] [address] 4663 Aug, [facility] [place] [address] [address]- 5319 Jul, [facility] [place] [facility] [address] [place] [address]- 8953 Jul, [facility] [address] 8450 Jul, [facility] [place] [address] 5761 Jun, [facility] [id number] [place] [address] 48917- 9528 Jun, Bipolar 2 disorder F31.81 ; Attention deficit disorder F90.0 ; COLLEEN (generalized anxiety disorder) F41.1 and Panic disorder [episodic paroxysmal anxiety] without agoraphobia F41.0 [facility] [id number] [place] [address] 71863- 1294 Jun, [facility] [address] 94610- 1052 Jun, [facility] [address] 96967- 7475 Jun, Right foot pain M79.671 and Nausea and vomiting in adult R11.2 [place] [address] 00688- 9405 May, [facility] [address] 28276- 8568 May, Other sinusitis, unspecified chronicity J32.9 ; Environmental allergies Z91.09 ; Other chronic pain G89.29 and Sacrococcygeal disorders, not elsewhere classified M53.3 [facility] [id number] [place] [address] 91612 -8195 May, Acute non-recurrent pansinusitis J01.40 and Gastroenteritis K52.9 [facility] [id number] [place] [address] 38130- 9245 May, [facility] [id number] [place] [address] 48380- 3865 May, [facility] [address] 17759- 6737 Apr, Bronchitis J40 [facility] [id number] [place] [address] 42213- 2906 Apr, [facility] [address] 15427- 7438 Apr, [facility] [address] [address]- 7272 Apr, [facility] [address], [place] [address] -1035 Apr, Nausea and vomiting in adult R11.2 [facility] [address] [address]- 8560 Apr, Nausea and vomiting in adult R11.2 [facility] [address] [address]- 1326 Apr, Bipolar 2 disorder F31.81 ; Generalized anxiety disorder F41.1 ; Panic disorder [episodic paroxysmal anxiety] without agoraphobia F41.0 ; Attention deficit disorder F90.0 and COLLEEN (generalized anxiety disorder) F41.1 [facility] [address] [place] [address] 65385- 1995 Apr, [facility] [id number] [place] [address] 91140- 9455 Mar, [facility] [id number] [place] [address] 58849- 2433 Mar, [facility] [address] [address]- 9710 Mar, [facility] [address], [place] [address]- 1864 Mar, Bipolar 2 disorder F31.81 ; Attention deficit disorder F90.0 ; COLLEEN (generalized anxiety disorder) F41.1 and Panic disorder [episodic paroxysmal anxiety] without agoraphobia F41.0 [facility] [address] [address]- 2328 Mar, [facility] [address] [address]- 8157 Feb, Bipolar 2 disorder F31.81 ; Generalized anxiety disorder F41.1 and Attention deficit disorder F90.0 [facility] [id number] [place] [address] 54831- 5718 Feb, Generalized anxiety disorder F41.1 [facility] [id number] [place] [address] 00794- 6863 Feb, Generalized anxiety disorder F41.1 ; Attention deficit disorder F90.0 and Bipolar 2 disorder F31.81 [facility] [id number] [place] [address] 00694- 3153 Feb, Bipolar 2 disorder F31.81 ; Generalized anxiety disorder F41.1 ; Attention deficit disorder F90.0 and Insomnia, unspecified type G47.00 [facility] [id number] [place] [address] 33802- 1419 Feb, Excessive sweating R61 and Breast lump in upper outer quadrant N63 [facility] [id number] [place] [address] 06064 -9736 January, Low back pain M54.5 ; Other chronic pain G89.29 and Urinary tract infection, site unspecified N39.0 [facility] [id number] [place] [address] 38855- 2884 January, Bipolar II disorder F31.81 [facility] [id number] [place] [address] 42903- 5868 January, [facility] [id number] [place] [address] 49829- 4826 January, Insomnia, unspecified type G47.00 and Grief F43.20 [facility] [id number] [place] [address] 25323- 3496 January, [facility] [id number] [place] [address] 92564- 3443 Dec, [facility] [id number] [place] [address] 04057- 4421 Dec, [facility] [id number] [place] [address] 04207- 6927 Dec, Bipolar 2 disorder F31.81 ; Generalized anxiety disorder F41.1 and Attention deficit disorder F90.0 [place] [address] 98190- 2637 Dec, Sinusitis J32.9 [facility] [address] 59518- 9795 14 Dec, 2015 Sinusitis J32.9 and Hypothyroid E03.9 [facility] [address] 85914- 8788 Dec, [facility] [address] 33460 -4817 Dec, Cough R05 and Allergic rhinitis J30.9 [place] [address] 52775- 5261 Nov, Hypertension I10 ; Obesity E66.9 and Acne L70.9 [facility] [address] 66822- 4208 Nov, [place] [address] 56336- 1109 Oct, [facility] [address] 27521- 7778 Oct, [facility] [address] 29899- 3226 Oct, [facility] [address] 27640- 4962 Oct, [facility] [address] 54931- 0935 Sep, Lymphadenitis I88.9 ; Essential hypertension I10 and Acne, unspecified acne type L70.9 [facility] [address] 43981- 1094 Sep, [facility] [address] [place] [address]- 4516 Sep, [facility] [id number] [place] [address] 14004- 9870 Sep, [facility] [id number] [place] [address] 13090- 2022 Sep, Acquired hypothyroidism E03.9 [facility] [id number] [place] [address] 89277- 6539 Aug, Acquired hypothyroidism E03.9 [facility] [id number] [place] [address] 34156- 3968 Aug, Furuncle L02.92 [facility] [id number] [place] [address] 81578- 8155 Aug, [facility] [id number] [place] [address] 89733- 0167 Aug, Bipolar 2 disorder F31.81 ; Generalized anxiety disorder F41.1 ; Attention deficit disorder F90.0 and Obesity E66.9 [facility] [id number] [place] [address] 43004- 2028 Aug, [facility] [id number] [place] [address] 91582- 5968 Aug, [facility] [id number] [place] [address] 28201- 5783 Aug, Acquired hypothyroidism E03.9 [facility] [id number] [place] [address] 39638- 3551 Jul, Acquired hypothyroidism E03.9 ; Upper respiratory tract infection, unspecified type J06.9 and Nonintractable migraine, unspecified migraine type G43.009 [facility] [address] [place] [address] 20183- 0945 Jun, Acute pharyngitis, unspecified J02.9 [facility] [id number] [place] [address] 69004- 2257 May, Bipolar II disorder 296.89 ; Attention deficit disorder of childhood without mention of hyperactivity 314.00 ; Generalized anxiety disorder 300.02 and Morbid obesity with BMI of 45.0-49.9, adult 278.01 [facility] [address], [place] [address]- 0126 May, Sinusitis 473.9 [facility] [id number] [place] [address] 41375- 7058 Apr, [facility] [id number] [place] [address] 92114- 3108 Mar, [facility] [id number] [place] [address] 14783- 0320 Mar, Bipolar II disorder 296.89 ; Generalized anxiety disorder 300.02 ; Obesity, unspecified 278.00 and Attention deficit disorder 314.00 [facility] [id number] [place] [address] 44178- 5512 Feb, [facility] [id number] [place] [address] 07426- 8376 January, [facility] [id number] [place] [address] 25932- 7316 January, [facility] [id number] [place] [address] 25259- 6546 January, [facility] [address], [place] [address]- 4126 January, [facility] [id number] [place] [address] 69177- 6778 Dec, [facility] [id number] [place] [address] 33413- 1137 Dec, [facility] [id number] [place] [address] 94962- 5186 Nov, [facility] [id number] [address]- 6156 Nov, [facility] [place] [facility] [address] [id number] [place] [address]- 8952 18 Nov, 2014 [facility] [place] [facility] [address] [id number] [place] [address]- 6240 11 Nov, 2014 [facility] [place] [facility] [address] [id number] [place] [address]- 1993 Nov, [facility] [place] [facility] [address] [id number] [place] [address]- 9354 Nov, [facility] [place] [facility] [address] [id number] [place] [address]- 0933 Nov, [facility] [place] [facility] [address] [id number] [place] [address]- 7411 Nov, [facility] [place] [facility] [address] [id number] [place] [address]- 5375 Nov, [facility] [place] [facility] [address] [id number] [place] [address]- 6090 Nov, [facility] [place] [facility] [address] [id number] [place] [address]- 3562 Nov, [facility] [place] [facility] [address] [id number] [place] [address]- 9950 Nov, [facility] [place] [facility] [address] [id number] [place] [address]- 0624 Nov, [facility] [place] [facility] [address] [id number] [place] [address]- 4131 Nov, [facility] [place] [facility] [address] [id number] [place] [address]- 5863 Oct, [facility] [place] [facility] [address] [id number] [place] [address]- 6813 Oct, [facility] [place] [facility] [address] [id number] [place] [address]- 1485 Oct, [facility] [place] [facility] [address] [id number] [place] [address]- 0021 Oct, [facility] [place] [facility] [address] [id number] [place] [address]- 6907 Oct, 2014 [facility] [place] [facility] [address] [id number] [place] 9573 Oct, 2014 [facility] [place] [facility] [address] [id number] [place] [address]- 1226 Oct, 2014 [facility] [place] [facility] [address] [id number] [place] [address]- 4526 Oct, 2014 [facility] [place] [facility] [address] [id number] [place] [address]- 3138 Oct, [facility] [place] [facility] [address] [id number] [place] [address]- 2530 Oct, [facility] [place] [facility] [address] [id number] [place] [address]- 7117 Oct, [facility] [place] [facility] [address] [facility] [id number] [place] [address]- 5140 Oct, [facility] [place] [facility] [address] [id number] [place] [address]- 9624 Sep, [facility] [place] [facility] [address] [facility] [id number] [address]- 8783 Sep, [facility] [place] [facility] [address] [facility] [id number] [place] [address]- 7101 Sep, [facility] [place] [facility] [address] [id number] [address]- 3804 Sep, [facility] [place] [facility] [address] [id number], [place] [address]- 3885 Sep, [facility] [place] [facility] [address] [facility] [id number] [address]- 5248 Sep, [facility] [place] [facility] [address] [id number], [place] [address]- 6023 Sep, [facility] [place] [facility] [address] [id number] [place] [address] Sep, [facility] [place] [facility] [address] [id number] [place] [address] Aug, [facility] [place] [facility] [address] [id number] [place] [address] Aug, [facility] [place] [facility] [address] [id number] [place] [address] Aug, [facility] [place] [facility] [address] [id number] [place] [address] Aug, [facility] [place] [facility] [address] [id number] [place] [address] Aug, [facility] [place] [facility] [address] [id number] [place] [address] Aug, [facility] [place] [facility] [address] [id number] [place] [address] Aug, [facility] [place] [facility] [address] [id number] [place] [address] Aug, [facility] [place] [facility] [address] [id number] [place] [address] Aug, [facility] [place] [facility] [address] [id number] [place] [address] Aug, [facility] [place] [facility] [address] [id number] [place] [address] Aug, [facility] [place] [facility] [address] [id number] [place] [address] Aug, [facility] [place] [facility] [address] [id number] [place] [address] Aug, [facility] [place] [facility] [address] [id number] [place] [address] Aug, [facility] [place] [facility] [address] [id number] [place] [address] Jul, [facility] [place] [facility] [address] [id number] [place] [address] Jul, [facility] [place] [facility] [address] [id number] [place] [address] Jul, [facility] [place] [facility] [address] [id number] [place] [address] Jul, [facility] [place] [facility] [address] [id number] [place] [address] Jul, [facility] [place] [facility] [address] [id number] [place] [address] Jul, [facility] [place] [facility] [address] [id number] [place] [address]- [address] Jul, [facility] [place] [facility] [address] [id number] [place] [address] Jul, [facility] [place] [facility] [address] [id number] [place] [address] Jul, [facility] [place] [facility] [address] [id number] [place] [address] Jul, [facility] [place] [facility] [address] [id number] [place] [address] Jul, [facility] [place] [facility] [address] [id number] [address] Jul, [facility] [place] [facility] [address] [id number][place] [address] 16 Jun, 2014 [facility] [place] [facility] [address] [id number] [place] [address] 5[address] 16 Jun, 2014 [facility] [place] [facility] [address] [id number] [place] [address] 7977 15 Jun, 2014 [facility] [place] [facility] [address] [id number] [place] [address] 6847 14 Jun, 2014 [facility] [place] [facility] [address] [id number] [place] [address] 9688 14 Jun, 2014 [facility] [place] [facility] [address] [id number] [place] [address] 8471 14 Jun, 2014 [facility] [place] [facility] [address] [id number] [place] [address] 7204 14 Jun, 2014 [facility] [place] [facility] [address] [id number] [place] [address]- 6416 13 Jun, 2014 [facility] [place] [facility] [address] [id number] [place] [address]- 2568 10 Jun, 2014 [facility] [place] [facility] [address] [id number] [place] [address] 3346 10 Jun, 2014 [facility] [place] [facility] [address] [id number] [place] [address]- 4273 09 Jun, 2014 [facility] [place] [facility] [address] [id number] [place] [address]- 8441 09 Jun, 2014 [facility] [place] [facility] [address] [id number] [place] [address]- 8442 06 Jun, 2014 [facility] [place] [facility] [address] [id number] [place] [address]- 5461 06 Jun, 2014 [facility] [place] [facility] [address] [id number] [place] [address]- 3064 16 May, 2014 [facility] [place] [facility] [address] [id number] [place] [address] 3434 15 May, 2013 [facility] [place] [facility] [address] [id number] [place] [address] 1570 15 May, 2014 [facility] [place] [facility] [address] [id number] [place] [address]- 4745 15 May, 2014 [facility] [place] [facility] [address] [id number] [place] [address]- 1399 15 May, 2013 [facility] [place] [facility] [address] [id number] [place] [address]- 4341 15 May, 2013 [facility] [place] [facility] [address] [id number] [place] [address] 8062 15 May, 2013 [facility] [place] [facility] [address] [id number] [place] [address]- 8987 12 May, 2013 [facility] [place] [facility] [address] [id number] [place] [address]- 1237 12 May, 2013 [facility] [place] [facility] [address] [id number] [place] [address]- 3474 10 May, 2013 [facility] [place] [facility] [address] [id number] [place] [address]- 0349 10 May, 2013 [facility] [place] [facility] [address] [id number] [place] [address]- 3301 02 May, 2013 [facility] [place] [facility] [address] [id number] [place] [address]- 4639 May, 2013 [facility] [place] [facility] [address] [id number] [place] [address]- 7866 02 May, 2013 [facility] [place] [facility] [address] [id number] [place] [address]- 5567 May, 2013 [facility] [place] [facility] [address] [id number] [place] [address] 4027 Apr, [facility] [place] [facility] [address] [id number] [place] [address] 3507 Apr, [facility] [place] [facility] [address] [id number] [place] [address]- 0789 Apr, [facility] [place] [facility] [address] [id number] [place] [address] 9045 Apr, [facility] [place] [facility] [address] [id number] [place] [address] 2407 Apr, [facility] [place] [facility] [address] [id number] [place] [address] 6252 Apr, [facility] [place] [facility] [address] [id number][place] [address] Apr, [facility] [place] [facility] [address] [id number] [place] [address] 8598 Apr, [facility] [place] [facility] [address] [id number] [place] [address]- 1269 Apr, [facility] [place] [facility] [address] [id number] [place] [address] 2419 Mar, [facility] [place] [facility] [address] [id number] [place] [address]- 2879 Mar, [facility] [place] [facility] [address] [id number] [place] [address]- 9574 Mar, [facility] [place] [facility] [address] [id number] [place] [address]- 4260 Mar, [facility] [place] [facility] [address] [id number] [place] [address]- 2244 Mar, [facility] [place] [facility] [address] [id number] [place] [address] 9960 Mar, [facility] [place] [facility] [address] [id number] [place] [address]- 2146 Mar, [facility] [place] [facility] [address] [id number] [place] [address]- 7760 Mar, [facility] [place] [facility] [address] [id number] [place] [address]- 9031 Mar, [facility] [place] [facility] [address] [id number] [place] [address]- 5265 Mar, [facility] [place] [facility] [address] [id number] [place] [address]- 1335 Mar, [facility] [place] [facility] [address] [id number] [place] [address]- 5556 Mar, [facility] [place] [facility] [address] [id number] [place] [address]- 7722 Mar, [facility] [place] [facility] [address] [id number] [place] [address] 1000 Mar, [facility] [place] [facility] [address] [id number] [place] [address]- 2399 Mar, [facility] [place] [facility] [address] [id number] [place] [address]- 1499 Mar, [facility] [place] [facility] [address] [id number] [place] [address]- 6676 Mar, [facility] [place] [facility] [address] [id number] [place] [address]- 3562 Mar, [facility] [place] [facility] [address] [id number] [place] [address]- 2374 Feb, [facility] [place] [facility] [address] [id number] [place] [address]- 5694 Feb, [facility] [place] [facility] [address] [id number] [place] [address]- 1673 Feb, [facility] [place] [facility] [address] [id number] [place] [address]- 3402 Feb, [facility] [place] [facility] [address] [id number] [place] [address]- 2793 Feb, [facility] [place] [facility] [address] [id number] [place] [address]- 8019 Feb, [facility] [place] [facility] [address] [id number] [place] [address]- 1928 Feb, [facility] [place] [facility] [address] [id number] [place] [address]- 1856 Feb, [facility] [place] [facility] [address] [id number] [place] [address]- 3712 Feb, [facility] [place] [facility] [address] [id number] [place] [address]- 0948 Feb, [facility] [place] [facility] [address] [id number] [place] [address]- 9810 January, [facility] [address] [id number] [place] [address]- 5577 January, [facility] [place] [facility] [address] [id number] [place] [address]- 5763 January, [facility] [place] [facility] [address] [id number] [place] [address]- 7713 January, [facility] [place] [facility] [address] [id number] [place] [address]- 4072 January, [facility] [address] [id number] [place] [address]- 2788 January, [facility] [place] [facility] [address] [id number] [place] [address]- 1466 January, [facility] [place] [facility] [address] [id number] [place] [address]- 5053 January, [facility] [place] [facility] [address] [id number] [place] [address]- 3761 January, [facility] [place] [facility] [address] [id number] [place] [address]- 9403 January, [facility] [place] [facility] [address] [id number] [place] [address]- 3585 January, [facility] [place] [facility] [address] [id number] [place] [address]- 8742 January, [facility] [place] [facility] [address] [id number] [place] [address]- 2522 January, [facility] [place] [facility] [address] [id number] [place] [address]- 8598 January, [facility] [place] [facility] [address] [id number] [place] [address]- 2567 January, [facility] [place] [facility] [address] [id number] [place] [address]- 8234 Dec, [facility] [place] [facility] [address] [id number] [place] [address]- 7794 10 Dec, 2013 [facility] [place] [facility] [address] [id number] [place] [address]- 5214 Dec, [facility] [place] [facility] [address] [id number] [place] [address]- 2040 Dec, [facility] [place] [facility] [address] [id number] [place] [address]- 1414 Dec, [facility] [place] [facility] [address] [id number] [place] [address]- 6549 Dec, [facility] [place] [facility] [address] [id number] [place] [address]- 2228 Nov, [facility] [place] [facility] [address] [facility] [id number] [place] [address]- 2992 Nov, [facility] [place] [facility] [address] [facility] [id number] [place] [address]- 0632 Nov, [facility] [place] [facility] [address] [facility] [id number] [place] [address]- 0157 Nov, [facility] [place] [facility] [address] [id number] [place] [address]- 4958 Nov, [facility] [place] [facility] [address] [facility] [id number] [place] [address]- 3620 Oct, [facility] [place] [facility] [address] [id number] [place] [address]- 7358 Oct, [facility] [place] [facility] [address] [facility] [id number] [place] [address]- 5621 13 Oct, 2013 [facility] [place] [facility] [address] [id number] [place] [address]- 6822 13 Oct, 2013 [facility] [place] [facility] [address] [facility] [id number] [place] [address]- 1277 10 Oct, 2013 [facility] [place] [facility] [address] [facility] [id number] [place] [address]- 4942 06 Oct, 2013 [facility] [place] [facility] [address] [id number] [place] [address]- 4906 06 Oct, 2013 [facility] [place] [facility] [address] [id number] [place] [address]- 9388 Oct, [facility] [place] [facility] [address] [id number] [place] [address]- 3623 Oct, [facility] [place] [facility] [address] [id number] [place] [address]- 6075 Oct, [facility] [place] [facility] [address] [id number] [place] [address]- 6937 Oct, [facility] [place] [facility] [address] [id number] [place] [address]- 9618 Sep, [facility] [place] [facility] [address] [id number] [place] [address]- 7149 Sep, [facility] [place] [facility] [address] [id number] [place] [address]- 3830 Sep, [facility] [place] [facility] [address] [id number] [place] [address]- 1566 Sep, [facility] [place] [facility] [address] [id number] [place] [address]- 3786 Aug, [facility] [place] [facility] [address] [id number] [place] [address]- 9742 Aug, [facility] [place] [facility] [address] [id number] [place] [address]- 3151 Jul, [facility] [place] [facility] [address] [id number] [place] [address]- 3173 Jul, [facility] [place] [facility] [address] [id number] [place] [address]- 8037 Jul, [facility] [place] [facility] [address] [id number] [place] [address]- 1142 Jul, [facility] [place] [facility] [address] [id number] [place] [address]- 2546 Jul, [facility] [address] [id number] [place] [address]- 5632 Jun, [facility] [address] [id number] [place] [address]- 2546 Jun, [facility] [address] [id number] [place] [address]- 7666 May, [facility] [address] [id number] [place] [address]- 2549 Mar, [facility] [address] [id number] [place] [address]- 3688 Mar, [facility] [address] [id number] [place] [address]- 2546 Mar, [facility] [address] [id number] [place] [address]- 7616 Feb, [facility] [address] [id number] [place] [address]- 9348 January, [facility] [address] [id number] [place] [address]- 8836 Dec, [facility] [place] [facility] [address] [facility] [id number] [place] [address]- 9647 Nov, [facility] [address] [id number] [place] [address]- 2546 Nov, [facility] [address] [id number] [place] [address]- 2546 Nov, [facility] [address] [id number] [place] [address]- 2546 Oct, [facility] [address] [id number] [place] [address]- 2546 17 Oct, 2012 [facility] [address] [id number] [place] [address]- 2546 Oct, [facility] [address] [facility] [id number] [place] [address]- 2546 Oct, [facility] [address] [facility] [id number] [place] [address]- 2546 Sep, IMMUNIZATIONS No Known Immunizations SOCIAL HISTORY Never Assessed REASON FOR VISIT f/u Francisco Pagan MA PLAN OF CARE Activity Details Follow Up 3 Months Reason: VITAL SIGNS Height 59 in 2017-02-20 Weight 204.3 lbs 2017-02-20 Heart Rate 118 bpm 2017-02-20 Respiratory Rate 20 2017-02-20 BMI 41.26 kg/m2 2017-02-20 Blood pressure systolic 155 mmHg 2017-02-20 Blood pressure diastolic 110 mmHg 2017-02-20 MEDICATIONS Medication Instructions Dosage Frequency Start Date End Date Duration Status Maxalt 10 MG Orally Once a day 1 tablet as needed 24h 30 days Active Levothyroxine Sodium 200 MCG Orally Once a day 1 tablet 24h 30 Active Elavil 25 MG Orally Once at bedtime for sleep 3 tablet Dec, Active Rozerem 8 MG Orally Once a day for sleep 1 tablet at bedtime as needed Feb, Active Lisinopril 20 mg Orally Once a day 1 tablet 24h 30 Active Guanfacine HCl 1 MG TAKE ONE TABLET BY MOUTH IN THE MORNING, ONE TABLET AT 2:00PM AND TWO TABLETS AT BEDTIME Active Loxapine Succinate 10 mg Orally 1 tab in AM and 3 tabs at HS 1 capsule Active RESULTS No Results PROCEDURES No Known [...]
--- OUTSIDE RECORDS SUMMARY | 2018-02-03 13:20 | XMS REPORT ---
Author Author [facility]EE [facility] Address [address] [place] [address] Care Team Providers Care Ppa Teacher Name Role Phone TEE CALLE Unavailable PROBLEMS Type Condition ICD9-CM Code [id number] Code Onset Dates Condition Status SNOMED Code Problem Postoperative hypothyroidism E89.0 Active 21068090 Problem Obesity E66.9 Active 008483587 Problem Bipolar 2 disorder F31.81 Active 51080155 Problem Panic disorder [episodic paroxysmal anxiety] without agoraphobia F41.0 Active 82066483 Problem COLLEEN (generalized anxiety disorder) F41.1 Active 54737291 Problem Attention deficit disorder F90.0 Active 060876866 Problem Generalized anxiety disorder F41.1 Active 67701475 Problem Acne L70.9 Active 31543791 Problem Hypertension I10 Active 67409251 ALLERGIES Unknown Allergies SOCIAL HISTORY No smoking Hx information available PLAN OF CARE VITAL SIGNS MEDICATIONS Medication Instructions Dosage Frequency Start Date End Date Duration Status Concerta 27 MG Orally Once a day for ADHD 1 tablet in the morning Sep 28 days Active RESULTS No Results PROCEDURES No Known procedures IMMUNIZATIONS No Known Immunizations
--- OUTSIDE RECORDS SUMMARY | 2018-02-03 13:20 | XMS REPORT ---
Author Author TEE CALLE [facility] Address [address] [place] [address] Care Team Providers Care Office Analyst Name Role Phone TEE CALLE Unavailable PROBLEMS Type Condition ICD9-CM Code [id number] Code Onset Dates Condition Status SNOMED Code Problem Postoperative hypothyroidism E89.0 Active 75000904 Problem Attention deficit disorder F90.0 Active 091794436 Problem Obesity E66.9 Active 972283494 Problem COLLEEN (generalized anxiety disorder) F41.1 Active 22526171 Problem Panic disorder [episodic paroxysmal anxiety] without agoraphobia F41.0 Active 52504280 Problem Bipolar 2 disorder F31.81 Active 63431251 Problem Generalized anxiety disorder F41.1 Active 94504536 Problem Hypertension I10 Active 58344087 Problem Acne L70.9 Active 48354819 ALLERGIES Unknown Allergies SOCIAL HISTORY No smoking Hx information available PLAN OF CARE VITAL SIGNS MEDICATIONS Medication Instructions Dosage Frequency Start Date End Date Duration Status Ambien 5 mg 1 tablet at bedtime Sep, Active RESULTS No Results PROCEDURES No Known procedures IMMUNIZATIONS No Known Immunizations
--- OUTSIDE RECORDS SUMMARY | 2018-02-03 13:21 | XMS REPORT ---
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 Name Role Phone TEE CALLE Unavailable PROBLEMS Type Condition ICD9-CM Code [id number] Code Onset Dates Condition Status SNOMED Code Problem Acne L70.9 Active 84929654 Problem Sciatica of right side M54.31 Active 38182154 Problem Panic disorder [episodic paroxysmal anxiety] without agoraphobia F41.0 Active 37663566 Problem Attention-deficit hyperactivity disorder, predominantly inattentive type F90.0 Active 40024687 Problem Current nonadherence to medical treatment Z91.19 Active 7739082 Problem Acquired hypothyroidism E03.9 Active 918477402 Problem Essential hypertension I10 Active 86407289 Problem Primary insomnia F51.01 Active 0602995 Problem Migraine with aura and without status migrainosus, not intractable G43.109 Active 4838314 Problem Abnormal liver function K76.89 Active 57587300 Problem Obesity E66.9 Active 667182409 Problem Bipolar 2 disorder F31.81 Active 04850272 Problem Postoperative hypothyroidism E89.0 Active 41525084 Problem Generalized anxiety disorder F41.1 Active 99374442 ALLERGIES No Information ENCOUNTERS Encounter Location Date Diagnosis [facility] [id number] [place] [address] 33059- 8852 Nov, Normal physical exam Z00.00 and Enlarged lymph node R59.9 [facility] [id number] [place] [address] 29482- 4337 Nov, Enlarged lymph node R59.9 ; Abnormal liver function K76.89 and Hypothyroid E03.9 [facility] [id number] [address] 5326 Oct, Bipolar 2 disorder F31.81 [facility] [id number] [place] [address] 50383- 3324 Oct, Sciatica of right side M54.31 and Essential hypertension I10 [place] [id number] [place] [address] 10746- 9138 Oct, [facility] [id number] [place] [address] 92892- 7284 Aug, Hypothyroid E03.9 [place] [address] 09439- 2742 Aug, [place] [address] 49715- 4022 Aug, Bipolar 2 disorder F31.81 [place] [address] 68854- 7034 Aug, Abnormal liver function K76.89 [place] [address] 87251- 8865 Jul, Bipolar 2 disorder F31.81 [facility] [id number] [place] [address] 30321 -8686 Jul, [place] [id number] [place] [address] 77596- 7530 Jul, Bipolar 2 disorder F31.81 ; Generalized anxiety disorder F41.1 ; Attention-deficit hyperactivity disorder, predominantly inattentive type F90.0 and Current nonadherence to medical treatment Z91.19 [facility] [id number] [place] [address] 42576 -5437 Jul, Essential hypertension I10 ; Other viral agents as the cause of diseases classified elsewhere B97.89 ; Acute upper respiratory infection, unspecified J06.9 and BMI 40.0-44.9, adult Z68.41 [facility] [id number] [place] [address] 83052- 2642 Jul, [place] [facility] [id number] [place] [address] 75859- 7838 Jul, [facility] [id number] [place] [address] 88853- 7113 Jun, [facility] [id number] [place] [address] 11390- 6957 Jun, [place] [id number] [place] [address] 62312- 6168 Jun, Dysuria R30.0 ; Urinary tract infection, site not specified N39.0 ; Hematuria, unspecified R31.9 ; Sciatica of right side M54.31 ; Migraine with aura and without status migrainosus, not intractable G43.109 ; Primary insomnia F51.01 ; Essential hypertension I10 and Acquired hypothyroidism E03.9 [place] [id number] [place] [address] 51971- 7400 Jun, Bipolar 2 disorder F31.81 [place] [facility] [id number] [place] [address] 47808- 5152 Jun, Bipolar 2 disorder F31.81 [place] [facility] [id number] [place] [address] 06929- 6893 May, Sore throat J02.9 ; Acute serous otitis media of left ear, recurrence not specified H65.02 and Hypertension I10 [place] [id number] [place] [address] 30128- 5774 May, Bipolar 2 disorder F31.81 [place] [id number] [place] [address] 78361- 1312 Apr, [place] [facility] [id number] [place] [address] 52665- 5208 Apr, Bipolar 2 disorder F31.81 [place] [id number] [place] [address] 86101- 7740 Mar, [place] [facility] [id number] [place] [address] 27351- 5879 Feb, Bipolar 2 disorder F31.81 ; Attention deficit disorder F90.0 ; COLLEEN (generalized anxiety disorder) F41.1 and Panic disorder [episodic paroxysmal anxiety] without agoraphobia F41.0 [facility] [address] [place] [address] 88533- 7138 January, Bipolar 2 disorder F31.81 [facility] [id number] [place] [address] 27967- 1431 Dec, [facility] [id number] [place] [address] 00056- 9677 Dec, [facility] [id number] [place] [address] 03202- 7107 Dec, [facility] [id number] [place] [address] 69667- 7188 Dec, Generalized anxiety disorder F41.1 ; Bipolar 2 disorder F31.81 and Panic disorder [episodic paroxysmal anxiety] without agoraphobia F41.0 [facility] [id number] [place] [address] 58844- 0191 Dec, [facility] [id number] [place] [address] 62520- 5637 Dec, [facility] [id number] [place] [address] 70230- 8775 Nov, [facility] [id number] [place] [address] 78376- 5100 Nov, [facility] [id number] [place] [address] 59051- 5985 Nov, [facility] [address] [place] [address] 88254- 3013 Oct, [facility] [id number] [place] [address] 52525- 5942 Oct, [facility] [id number] [address]- 1058 Oct, [facility] [id number] [place] [address] 58310- 6435 Oct, [facility] [address] [address] 8254 Oct, [facility] [address] [address]- 5809 Sep, Bipolar 2 disorder F31.81 ; COLLEEN (generalized anxiety disorder) F41.1 ; Attention deficit disorder F90.0 and Panic disorder [episodic paroxysmal anxiety] without agoraphobia F41.0 [facility] [address] [place] [address]- 2489 Sep, [facility] [id number] [place] [address], [place]- [address] Sep, [facility] [address] 4573 Sep, [facility] [id number] [address]- 5094 Aug, [facility] [address] [place] [address]- 7532 Aug, [facility] [id number] 6437 Aug, [facility] [address] [address] 6831 Aug, [facility] [address] [address]- 6589 Jul, [facility] [id number] [address]- 4636 Jul, [facility] [id number] [place] [address]- 8703 Jul, [facility] [id number] [address]- 3376 Jun, [facility] [address] [address]- 6641 Jun, Bipolar 2 disorder F31.81 ; Attention deficit disorder F90.0 ; COLLEEN (generalized anxiety disorder) F41.1 and Panic disorder [episodic paroxysmal anxiety] without agoraphobia F41.0 [facility] [id number] [place] [address] 74676- 0513 Jun, [facility] [address] 15388- 5545 Jun, [facility] [address] 80352- 8581 Jun, Right foot pain M79.671 and Nausea and vomiting in adult R11.2 [facility] [address] 16871- 8809 May, [facility] [address] 91150- 6138 May, Other sinusitis, unspecified chronicity J32.9 ; Environmental allergies Z91.09 ; Other chronic pain G89.29 and Sacrococcygeal disorders, not elsewhere classified M53.3 [facility] [address] 91046 -3620 May, Acute non-recurrent pansinusitis J01.40 and Gastroenteritis K52.9 [facility] [address] 29619- 3319 May, [facility] [address] 10872- 3569 May, [facility] [address] 94617- 9227 Apr, Bronchitis J40 [facility] [address] 10168- 3658 Apr, [facility] [address] 51038- 5635 Apr, [facility] [address] 10080- 9868 Apr, [facility] [address] [address] -7146 Apr, Nausea and vomiting in adult R11.2 [facility] [address] [address]- 7316 Apr, Nausea and vomiting in adult R11.2 [facility] [id number] [place] [address] 23426- 7295 Apr, Bipolar 2 disorder F31.81 ; Generalized anxiety disorder F41.1 ; Panic disorder [episodic paroxysmal anxiety] without agoraphobia F41.0 ; Attention deficit disorder F90.0 and COLLEEN (generalized anxiety disorder) F41.1 [facility] [address] [address]- 6055 Apr, [facility] [id number] [place] [address] 74043- 7818 Mar, [facility] [address] [place] [address] 12897- 7834 Mar, [facility] [address] [place] [address] 42681- 2117 Mar, [facility] [address] [address]- 5080 Mar, Bipolar 2 disorder F31.81 ; Attention deficit disorder F90.0 ; COLLEEN (generalized anxiety disorder) F41.1 and Panic disorder [episodic paroxysmal anxiety] without agoraphobia F41.0 [facility] [address] [address]- 2129 Mar, [facility] [id number] [place] [address] 26778- 2039 Feb, Bipolar 2 disorder F31.81 ; Generalized anxiety disorder F41.1 and Attention deficit disorder F90.0 [facility] [address] [place] [address] 94710- 6766 Feb, Generalized anxiety disorder F41.1 [facility] [address] [place] [address] 29060- 1418 Feb, Generalized anxiety disorder F41.1 ; Attention deficit disorder F90.0 and Bipolar 2 disorder F31.81 [facility] [address] [place] [address] 42740- 1747 Feb, Bipolar 2 disorder F31.81 ; Generalized anxiety disorder F41.1 ; Attention deficit disorder F90.0 and Insomnia, unspecified type G47.00 [facility] [id number] [place] [address] 27369- 3346 Feb, Excessive sweating R61 and Breast lump in upper outer quadrant N63 [facility] [address] [place] [address] 82379 -7412 January, Low back pain M54.5 ; Other chronic pain G89.29 and Urinary tract infection, site unspecified N39.0 [facility] [id number] [place] [address] 42114- 4378 January, Bipolar II disorder F31.81 [facility] [id number] [place] [address] 60167- 5821 January, [facility] [id number] [place] [address] 09717- 5597 January, Insomnia, unspecified type G47.00 and Grief F43.20 [facility] [id number] [place] [address] 86626- 6075 January, [facility] [id number] [place] [address] 86873- 6603 Dec, [facility] [id number] [place] [address] 10276- 3001 Dec, [facility] [address] [place] [address] 22667- 7546 Dec, Bipolar 2 disorder F31.81 ; Generalized anxiety disorder F41.1 and Attention deficit disorder F90.0 [facility] [id number] [place] [address] 62414- 5787 Dec, Sinusitis J32.9 [facility] [id number] [place] [address] 79405- 3923 14 Dec, 2015 Sinusitis J32.9 and Hypothyroid E03.9 [facility] [address] 66200- 7038 Dec, [facility] [id number] [place] [address] 05205 -6137 Dec, Cough R05 and Allergic rhinitis J30.9 [facility] [id number] [place] [address] 74943- 0041 Nov, Hypertension I10 ; Obesity E66.9 and Acne L70.9 [place] [address] 41330- 3192 Nov, [facility] [id number] [place] [address] 01395- 5464 Oct, [facility] [address] 16607- 6677 Oct, [facility] [id number] [place] [address] 04244- 2110 Oct, [facility] [id number] [place] [address] 10744- 8742 Oct, [facility] [id number] [place] [address] 20044- 8279 Sep, Lymphadenitis I88.9 ; Essential hypertension I10 and Acne, unspecified acne type L70.9 [facility] [id number] [place] [address] 07641- 3233 Sep, [facility] [id number] [place] [address] 83883- 9018 Sep, [facility] [address] [address]- 7702 Sep, [facility] [id number] [place] [address] 24538- 6968 Sep, Acquired hypothyroidism E03.9 [facility] [id number] [place] [address] 61866- 3586 Aug, Acquired hypothyroidism E03.9 [facility] [id number] [place] [address] 68601- 9748 Aug, Furuncle L02.92 [facility] [id number] [place] [address] 60927- 3385 Aug, [facility] [id number] [place] [address] 49413- 7001 Aug, Bipolar 2 disorder F31.81 ; Generalized anxiety disorder F41.1 ; Attention deficit disorder F90.0 and Obesity E66.9 [facility] [id number] [place] [address] 47561- 6381 Aug, [facility] [id number] [place] [address] 96179- 2707 Aug, [facility] [id number] [place] [address] 91953- 2267 Aug, Acquired hypothyroidism E03.9 [facility] [id number] [place] [address] 63209- 5776 Jul, Acquired hypothyroidism E03.9 ; Upper respiratory tract infection, unspecified type J06.9 and Nonintractable migraine, unspecified migraine type G43.009 [facility] [address] [place] [address] 28925- 2750 14 Jun, 2015 Acute pharyngitis, unspecified J02.9 [facility] [address] [place] [address] 02930- 5133 24 May, 2015 Bipolar II disorder 296.89 ; Attention deficit disorder of childhood without mention of hyperactivity 314.00 ; Generalized anxiety disorder 300.02 and Morbid obesity with BMI of 45.0-49.9, adult 278.01 [facility] [address] [address]- 3546 May, Sinusitis 473.9 [facility] [id number] [address]- 2546 Apr, [facility] [id number] [place] [address] 88915- 3586 Mar, [facility] [id number] [place] [address] 48380- 2546 Mar, Bipolar II disorder 296.89 ; Generalized anxiety disorder 300.02 ; Obesity, unspecified 278.00 and Attention deficit disorder 314.00 [facility] [address] [address]- 6606 Feb, [facility] [id number] [place] [address] 25820- 1026 January, [facility] [id number] [address]- 6026 January, [facility] [id number] [place] [address] 98648- 4266 January, [facility] [address] [address]- 2546 January, [facility] [address] [address]- 3346 Dec, [facility] [address] [address]- 2546 Dec, [facility] [id number] [place] [address] 65904- 2546 Nov, [facility] [id number] [address]- 2546 Nov, [facility] [address] [address]- 5021 Nov, [facility] [place] [facility] [address] [id number] [place] [address]- 5683 11 Nov, 2014 [facility] [place] [facility] [address] [id number] [place] [address]- 8911 Nov, [facility] [place] [facility] [address] [id number] [place] [address]- 4427 Nov, [facility] [place] [facility] [address] [id number] [place] [address]- 5780 Nov, [facility] [place] [facility] [address] [id number] [place] [address]- 9521 Nov, [facility] [place] [facility] [address] [id number] [place] [address]- 8896 Nov, [facility] [place] [facility] [address] [id number] [place] [address]- 6584 Nov, [facility] [place] [facility] [address] [id number] [place] [address]- 4831 Nov, [facility] [place] [facility] [address] [id number] [place] [address]- 1260 Nov, [facility] [place] [facility] [address] [id number] [place] [address]- 5011 Nov, [facility] [place] [facility] [address] [id number] [place] [address]- 7792 Nov, [facility] [place] [facility] [address] [id number] [place] [address]- 5204 Oct, [facility] [place] [facility] [address] [id number] [place] [address]- 5685 Oct, [facility] [place] [facility] [address] [id number] [place] [address]- 7379 Oct, [facility] [place] [facility] [address] [id number] [place] [address]- 3532 Oct, [facility] [place] [facility] [address] [id number] [place] [address]- 2763 Oct, 2014 [facility] [place] [facility] [address] [id number] [place] [address]- 9936 Oct, 2014 [facility] [place] [facility] [address] [id number] [place] [address]- 8696 Oct, 2014 [facility] [place] [facility] [address] [id number] [place] [address]- 0116 Oct, 2014 [facility] [place] [facility] [address] [id number] [place] [address]- 3575 Oct, 2014 [facility] [place] [facility] [address] [id number] [place] [address]- 3185 Oct, 2014 [facility] [place] [facility] [address] [id number] [place] [address]- 9649 Oct, [facility] [place] [facility] [address] [id number] [place] [address]- 0435 Oct, [facility] [place] [facility] [address] [id number] [place] [address]- 1442 Sep, [facility] [place] [facility] [address] [id number] [place] [address]- 0116 Sep, [facility] [place] [facility] [address] [facility] [id number] [place] [address]- 4830 Sep, [facility] [place] [facility] [address] [id number] [place] [address]- 6549 Sep, [facility] [place] [facility] [address] [id number] [place] [address]- 5696 Sep, [facility] [place] [facility] [address] [id number] [place] [address]- 1584 Sep, [facility] [place] [facility] [address] [id number] [place] [address] Sep, [facility] [place] [facility] [address] [id number] [place] [address] Sep, [facility] [place] [facility] [address] [id number] [place] [address] Aug, [facility] [place] [facility] [address] [id number] [place] [address] Aug, [facility] [place] [facility] [address] [id number] [place] [address] Aug, [facility] [place] [facility] [address] [id number] [place] [address] Aug, [facility] [place] [facility] [address] [id number] [place] [address] Aug, [facility] [place] [facility] [address] [id number] [place] [address] Aug, [facility] [place] [facility] [address] [id number] [place] [address] Aug, [facility] [place] [facility] [address] [id number] [place] [address] Aug, [facility] [place] [facility] [address] [id number] [place] [address] Aug, [facility] [place] [facility] [address] [id number] [place] [address] Aug, [facility] [place] [facility] [address] [id number] [place] [address] Aug, [facility] [place] [facility] [address] [id number] [place] [address] Aug, [facility] [place] [facility] [address] [id number] [place] [address] Aug, [facility] [place] [facility] [address] [id number] [place] [address] Aug, [facility] [place] [facility] [address] [id number] [place] [address] Jul, [facility] [place] [facility] [address] [id number] [place] [address] 13 Jul, 2014 [facility] [place] [facility] [address] [id number] [place] [address] 13 Jul, 2014 [facility] [place] [facility] [address] [id number] [place] [address] Jul, [facility] [place] [facility] [address] [id number] [place] [address] Jul, [facility] [place] [facility] [address] [id number] [place] [address] Jul, [facility] [place] [facility] [address] [id number] [place] [address] Jul, [facility] [place] [facility] [address] [id number] [place] [address] Jul, [facility] [place] [facility] [address] [id number] [place] [address] Jul, [facility] [place] [facility] [address] [address] [id number] [place] [address] 04 Jul, 2014 [facility] [place] [facility] [address] [id number] [place] [address] Jul, [facility] [place] [facility] [address] [facility] [id number] [place] [address]697 Jul, [facility] [place] [facility] [address] [id number] [place] [address] 3618 16 Jun, 2014 [facility] [place] [facility] [address] [id number] [address] 16 Jun, 2014 [facility] [place] [facility] [address] [id number] [place] [address] 3069 15 Jun, 2014 [facility] [place] [facility] [address] [id number] [place] [address] 7919 14 Jun, 2014 [facility] [place] [facility] [address] [id number], [place] [address] 14 Jun, 2014 [facility] [place] [facility] [address] [id number] [place] [address] 8635 14 Jun, 2014 [facility] [place] [facility] [address] [id number] [place] [address] 1026 14 Jun, 2014 [facility] [place] [facility] [address] [id number] [place] [address] 13 Jun, 2014 [facility] [place] [facility] [address] [id number] [place] [address] 5889 10 Jun, 2014 [facility] [place] [facility] [address] [id number] [place] [address] 0749 10 Jun, 2014 [facility] [place] [facility] [address] [id number] [place] [address] 9839 09 Jun, 2014 [facility] [place] [facility] [address] [id number] [place] [address] 2813 09 Jun, 2014 [facility] [place] [facility] [address] [id number] [place] [address]- 6942 06 Jun, 2014 [facility] [place] [facility] [address] [id number] [place] [address]- 4832 06 Jun, 2014 [facility] [place] [facility] [address] [id number] [place] [address] 3839 16 May, 2014 [facility] [place] [facility] [address] [id number] [place] [address] 5[address] 15 May, 2013 [facility] [place] [facility] [address] [id number] [place] [address]- 7213 15 May, 2013 [facility] [place] [facility] [address] [id number] [place] [address] 4609 15 May, 2013 [facility] [place] [facility] [address] [id number] [place] [address]- 2540 15 May, 2013 [facility] [place] [facility] [address] [id number] [place] [address] 4225 15 May, 2013 [facility] [place] [facility] [address] [id number] [place] [address]- 4586 15 May, 2013 [facility] [place] [facility] [address] [id number] [place] [address]- 1728 12 May, 2013 [facility] [place] [facility] [address] [id number] [place] [address]- 5750 12 May, 2013 [facility] [place] [facility] [address] [id number] [place] [address]- 4617 10 May, 2013 [facility] [place] [facility] [address] [id number] [place] [address]- 5[address] 10 May, 2013 [facility] [place] [facility] [address] [id number] [place] [address]- 0879 02 May, 2013 [facility] [place] [facility] [address] [id number] [place] [address]- 2724 May, 2013 [facility] [place] [facility] [address] [id number] [place] [address]- 0608 May, 2013 [facility] [place] [facility] [address] [id number] [place] [address]- 9669 May, 2013 [facility] [place] [facility] [address] [id number] [place] [address]- 8133 Apr, [facility] [place] [facility] [address] [id number] [place] [address]- 0722 Apr, [facility] [place] [facility] [address] [id number] [place] [address]- 0372 Apr, [facility] [place] [facility] [address] [id number] [place] [address]- 8332 Apr, [facility] [place] [facility] [address] [id number] [place] [address]- 0355 Apr, [facility] [place] [facility] [address] [id number] [place] [address]- 7116 Apr, [facility] [place] [facility] [address] [id number] [place] [address]- 4728 Apr, [facility] [place] [facility] [address] [id number] [place] [address]- 9399 Apr, [facility] [place] [facility] [address] [id number] [place] [address]- 7161 Apr, [facility] [place] [facility] [address] [id number] [place] [address] 8672 Mar, [facility] [place] [facility] [address] [id number] [place] [address]- 7752 Mar, [facility] [place] [facility] [address] [id number] [place] [address]- 4790 Mar, [facility] [place] [facility] [address] [id number] [place] [address]- 5593 Mar, [facility] [place] [facility] [address] [id number] [place] [address]- 7686 Mar, [facility] [place] [facility] [address] [id number] [place] [address]- 7540 Mar, [facility] [place] [facility] [address] [id number] [place] [address]- 3390 Mar, [facility] [place] [facility] [address] [id number] [place] [address]- 1991 Mar, [facility] [place] [facility] [address] [id number] [place] [address]- 4067 Mar, [facility] [place] [facility] [address] [id number] [place] [address]- 3130 Mar, [facility] [place] [facility] [address] [id number] [place] [address]- 4669 Mar, [facility] [place] [facility] [address] [id number] [place] [address]- 5428 Mar, [facility] [place] [facility] [address] [id number] [place] [address]- 0825 Mar, [facility] [place] [facility] [address] [id number] [place] [address]- 6934 Mar, [facility] [place] [facility] [address] [id number] [place] [address]- 8142 Mar, [facility] [place] [facility] [address] [id number] [place] [address]- 7733 Mar, [facility] [place] [facility] [address] [id number] [place] [address]- 9993 Mar, [facility] [place] [facility] [address] [id number] [place] [address]- 8626 Mar, [facility] [place] [facility] [address] [id number] [place] [address]- 7204 Feb, [facility] [place] [facility] [address] [id number] [place] [address]- 9897 Feb, [facility] [place] [facility] [address] [id number] [place] [address]- 9066 Feb, [facility] [place] [facility] [address] [id number] [place] [address]- 9727 Feb, [facility] [place] [facility] [address] [id number] [place] [address]- 7191 Feb, [facility] [place] [facility] [address] [id number] [place] [address]- 8115 Feb, [facility] [place] [facility] [address] [id number] [place] [address]- 0475 Feb, [facility] [place] [facility] [address] [id number] [place] [address]- 8714 Feb, [facility] [place] [facility] [address] [id number] [place] [address]- 3063 Feb, [facility] [place] [facility] [address] [id number] [place] [address]- 0100 Feb, [facility] [place] [facility] [address] [id number] [place] [address]- 9609 January, [facility] [place] [facility] [address] [id number] [place] [address]- 0020 January, [facility] [address] [id number] [place] [address]- 1877 January, [facility] [place] [facility] [address] [id number] [place] [address] January, [facility] [place] [facility] [address] [id number] [place] [address]- 6462 January, [facility] [place] [facility] [address] [id number] [place] [address]- 2264 January, [facility] [place] [facility] [address] [id number] [place] [address]- 2358 January, [facility] [place] [facility] [address] [id number] [place] [address]- 2844 January, [facility] [address] [id number] [place] [address]- 7590 January, [facility] [place] [facility] [address] [id number] [place] [address]- 8411 January, [facility] [place] [facility] [address] [id number] [place] [address]- 9380 January, [facility] [place] [facility] [address] [id number] [place] [address]- 3625 January, [facility] [place] [facility] [address] [id number] [place] [address]- 4895 January, [facility] [place] [facility] [address] [id number] [place] [address]- 5466 January, [facility] [place] [facility] [address] [id number] [place] [address]- 8034 January, [facility] [place] [facility] [address] [id number] [place] [address]- 9599 Dec, [facility] [place] [facility] [address] [id number] [place] [address]- 4877 Dec, [facility] [place] [facility] [address] [id number] [place] [address]- 5027 08 Dec, 2013 [facility] [place] [facility] [address] [id number] [place] [address]- 8904 Dec, [facility] [place] [facility] [address] [id number] [place] [address]- 0578 Dec, [facility] [place] [facility] [address] [id number] [place] [address]- 3151 Dec, [facility] [place] [facility] [address] [id number] [place] [address]- 3251 Nov, [facility] [place] [facility] [address] [id number] [place] [address]- 5237 Nov, [facility] [place] [facility] [address] [facility] [id number] [place] [address]- 7148 Nov, [facility] [place] [facility] [address] [id number] [place] [address]- 0742 Nov, [facility] [place] [facility] [address] [id number] [place] [address]- 5127 Nov, [facility] [place] [facility] [address] [id number] [place] [address]- 6635 Oct, [facility] [place] [facility] [address] [facility] [id number] [place] [address]- 7720 Oct, [facility] [place] [facility] [address] [id number] [place] [address]- 4175 Oct, [facility] [place] [facility] [address] [id number] [place] [address]- 0667 Oct, [facility] [place] [facility] [address] [id number] [place] [address]- 8486 10 Oct, 2013 [facility] [place] [facility] [address] [id number] [place] [address]- 2122 06 Oct, 2013 [facility] [place] [facility] [address] [id number] [place] [address]- 9284 06 Oct, 2013 [facility] [address] [id number] [place] [address]- 7808 Oct, [facility] [place] [facility] [address] [id number] [place] [address]79 Oct, [facility] [place] [facility] [address] [id number] [place] [address]- 1100 Oct, [facility] [place] [facility] [address] [id number] [place] [address]- 0259 Oct, [facility] [place] [facility] [address] [id number] [place] [address]- 3020 Sep, [facility] [place] [facility] [address] [id number] [place] [address]- 6758 Sep, [facility] [address] [id number] [place] [address]- 6684 Sep, [facility] [place] [facility] [address] [id number] [place] [address]- 2687 Sep, [facility] [place] [facility] [address] [id number] [place] [address]- 3911 Aug, [facility] [place] [facility] [address] [id number] [place] [address]- 8209 Aug, [facility] [place] [facility] [address] [id number] [place] [address]- 6809 Jul, [facility] [place] [facility] [address] [id number] [place] [address]- 7115 Jul, [facility] [place] [facility] [address] [id number] [place] [address]- 9663 Jul, [facility] [place] [facility] [address] [id number] [place] [address]- 1366 Jul, [facility] [place] [facility] [address] [id number] [place] [address] Jul, [facility] [place] [facility] [address] [id number] [place] [address]- 5613 Jun, [facility] [address] [id number] [place] [address]- 7453 Jun, [facility] [place] [facility] [address] [id number] [place] [address]- 4824 May, [facility] [place] [facility] [address] [id number] [place] [address]- 6630 Mar, [facility] [place] [facility] [address] [id number] [place] [address]- 7963 Mar, [facility] [place] [facility] [address] [id number] [place] [address]- 7831 Mar, [facility] [address] [id number] [place] [address]- 1230 Feb, [facility] [place] [facility] [address] [id number] [place] [address]- 0553 January, [facility] [address] [id number] [place] [address]- 1103 Dec, [facility] [place] [facility] [address] [id number] [place] [address]- 4221 Nov, [facility] [place] [facility] [address] [id number] [place] [address]- 9954 Nov, [facility] [place] [facility] [address] [id number] [place] [address]- 0185 Nov, [facility] [place] [facility] [address] [id number] [place] [address]- 2233 Oct, [facility] [place] [facility] [address] [id number] [place] [address]- 0623 Oct, [facility] [place] [facility] [address] [id number] [place] [address]- 7596 Oct, [facility] [place] [facility] [address] [id number] [place] [address] 2546 Oct, [facility] [address] [facility] [id number] [place] [address]- 2546 Sep, IMMUNIZATIONS No Known Immunizations SOCIAL HISTORY Never Assessed REASON FOR VISIT medication PLAN OF CARE VITAL SIGNS MEDICATIONS Medication Instructions Dosage Frequency Start Date End Date Duration Status Elavil 25 MG Orally Once a day 3 tablet 24h Dec, 30 days Active RESULTS No Results PROCEDURES [...]
--- OUTSIDE RECORDS SUMMARY | 2018-02-03 13:22 | XMS REPORT ---
Author Author TEE CALLE Organization [facility] Address [address] [place] [address] Care Team Providers Care Application Specialist Name Role Phone KRUNAL CALLEA Unavailable PROBLEMS Type Condition ICD9-CM Code [id number] Code Onset Dates Condition Status SNOMED Code Problem Bipolar 2 disorder F31.81 Active 58023207 Problem Panic disorder [episodic paroxysmal anxiety] without agoraphobia F41.0 Active 32117461 Problem Acne L70.9 Active 87632793 Problem Primary insomnia F51.01 Active 7385555 Problem Acquired hypothyroidism E03.9 Active 244047470 Problem Migraine with aura and without status migrainosus, not intractable G43.109 Active 8994079 Problem COLLEEN (generalized anxiety disorder) F41.1 Active 96180923 Problem Essential hypertension I10 Active 40825294 Problem Sciatica of right side M54.31 Active 47352270 Problem Abnormal liver function K76.89 Active 04086208 Problem Obesity E66.9 Active 664144923 Problem Attention deficit disorder F90.0 Active 571319175 Problem Postoperative hypothyroidism E89.0 Active 28900348 Problem Generalized anxiety disorder F41.1 Active 96209371 ALLERGIES No Information SOCIAL HISTORY Never Assessed PLAN OF CARE VITAL SIGNS MEDICATIONS Medication Instructions Dosage Frequency Start Date End Date Duration Status Elavil 25 MG Orally Once at bedtime for sleep 2 tablet Dec, Active RESULTS No Results PROCEDURES No Known [...]
--- OUTSIDE RECORDS SUMMARY | 2018-02-03 13:22 | XMS REPORT ---
Author Author LUC TEE Organization [facility] Address [address] [place] [address] Care Team Providers Care Shop Director Name Role Phone TEE CALLE Unavailable PROBLEMS Type Condition ICD9-CM Code EKO02-ZP Code Onset Dates Condition Status SNOMED Code Problem Acne L70.9 Active 49204525 Problem Sciatica of right side M54.31 Active 63156565 Problem Panic disorder [episodic paroxysmal anxiety] without agoraphobia F41.0 Active 39682012 Problem Attention-deficit hyperactivity disorder, predominantly inattentive type F90.0 Active 27940791 Problem Current nonadherence to medical treatment Z91.19 Active 1333187 Problem Acquired hypothyroidism E03.9 Active 816699952 Problem Essential hypertension I10 Active 13673044 Problem Primary insomnia F51.01 Active 1559637 Problem Migraine with aura and without status migrainosus, not intractable G43.109 Active 8458256 Problem Abnormal liver function K76.89 Active 88115665 Problem Obesity E66.9 Active 571988296 Problem Bipolar 2 disorder F31.81 Active 42250768 Problem Postoperative hypothyroidism E89.0 Active 13930119 Problem Generalized anxiety disorder F41.1 Active 48196260 ALLERGIES No Information ENCOUNTERS Encounter Location Date Diagnosis [facility] [id number] [place] [address] 86013- 2935 Nov, Normal physical exam Z00.00 and Enlarged lymph node R59.9 [facility] [address] [place] [address] 79811- 6875 Nov, Enlarged lymph node R59.9 ; Abnormal liver function K76.89 and Hypothyroid E03.9 [facility] [id number] [address] 6029 Oct, Bipolar 2 disorder F31.81 [facility] [id number] [place] [address] 35560- 1707 Oct, Sciatica of right side M54.31 and Essential hypertension I10 [place] [id number] [place] [address] 96196- 1930 Oct, [facility] [id number] [place] [address] 46751- 6302 Aug, Hypothyroid E03.9 [place] [address] 80792- 1006 Aug, [place] [address] 23325- 7339 Aug, Bipolar 2 disorder F31.81 [place] [facility] [address] 59157- 3830 Aug, Abnormal liver function K76.89 [place] [address] 08891- 7496 Jul, Bipolar 2 disorder F31.81 [facility] [id number] [place] [address] 67593 -1272 Jul, [place] [id number] [place] [address] 93263- 4696 Jul, Bipolar 2 disorder F31.81 ; Generalized anxiety disorder F41.1 ; Attention-deficit hyperactivity disorder, predominantly inattentive type F90.0 and Current nonadherence to medical treatment Z91.19 [facility] [id number] [place] [address] 59664 -4367 Jul, Essential hypertension I10 ; Other viral agents as the cause of diseases classified elsewhere B97.89 ; Acute upper respiratory infection, unspecified J06.9 and BMI 40.0-44.9, adult Z68.41 [facility] [id number] [place] [address] 91355- 3328 Jul, [place] [id number] [place] [address] 68731- 0141 Jul, [facility] [id number] [place] [address] 78881- 1551 Jun, [facility] [id number] [place] [address] 47130- 9769 Jun, [place] [id number] [place] [address] 93081- 5000 Jun, Dysuria R30.0 ; Urinary tract infection, site not specified N39.0 ; Hematuria, unspecified R31.9 ; Sciatica of right side M54.31 ; Migraine with aura and without status migrainosus, not intractable G43.109 ; Primary insomnia F51.01 ; Essential hypertension I10 and Acquired hypothyroidism E03.9 [place] [id number] [place] [address] 43077- 6422 Jun, Bipolar 2 disorder F31.81 [place] [id number] [place] [address] 70989- 1258 Jun, Bipolar 2 disorder F31.81 [place] [id number] [place] [address] 97497- 2577 May, Sore throat J02.9 ; Acute serous otitis media of left ear, recurrence not specified H65.02 and Hypertension I10 [place] [address] [place] [address] 67540- 0155 May, Bipolar 2 disorder F31.81 [place] [id number] [place] [address] 67507- 0552 Apr, [place] [id number] [place] [address] 71763- 9025 Apr, Bipolar 2 disorder F31.81 [place] [id number] [place] [address] 05712- 8288 Mar, [place] [id number] [place] [address] 74248- 1981 Feb, Bipolar 2 disorder F31.81 ; Attention deficit disorder F90.0 ; COLLEEN (generalized anxiety disorder) F41.1 and Panic disorder [episodic paroxysmal anxiety] without agoraphobia F41.0 [facility] [address] [place] [address] 07849- 7696 January, Bipolar 2 disorder F31.81 [facility] [id number] [place] [address] 72668- 6780 Dec, [facility] [id number] [place] [address] 89775- 8628 Dec, [facility] [id number] [place] [address] 73589- 3035 Dec, [facility] [id number] [place] [address] 58972- 9557 Dec, Generalized anxiety disorder F41.1 ; Bipolar 2 disorder F31.81 and Panic disorder [episodic paroxysmal anxiety] without agoraphobia F41.0 [facility] [id number] [place] [address] 04297- 0551 Dec, [facility] [id number] [place] [address] 30707- 5714 Dec, [facility] [id number] [place] [address] 02796- 3487 Nov, [facility] [id number] [place] [address] 65678- 6822 Nov, [facility] [id number] [place] [address] 55742- 9149 Nov, [facility] [address] [place] [address] 29965- 8367 Oct, [facility] [id number] [place] [address] 11053- 4022 Oct, [facility] [address] [address]- 0924 Oct, [facility] [id number] [place] [address] 76982- 5150 Oct, [facility] [address], [place] [address]- 0045 Oct, [facility] [address] [address]- 3214 Sep, Bipolar 2 disorder F31.81 ; COLLEEN (generalized anxiety disorder) F41.1 ; Attention deficit disorder F90.0 and Panic disorder [episodic paroxysmal anxiety] without agoraphobia F41.0 [facility] [address] [place] [address]- 3573 Sep, [facility] [id number] [place] [address], [place] 2306 Sep, [facility] [address] 1990 Sep, [facility] [id number] [address]- 3648 Aug, [facility] [address] [place] [place] [address]- 9524 Aug, [facility] [id number] 9755 Aug, [facility] [address] 5427 Aug, [facility] [address], [place] [address]- 7546 Jul, [facility] [id number] [address]- 5516 Jul, [facility] [id number] [place] [place] [address]- 1036 Jul, [facility] [id number] [address]- 3506 Jun, [facility] [address], [place] [address]- 4050 Jun, Bipolar 2 disorder F31.81 ; Attention deficit disorder F90.0 ; COLLEEN (generalized anxiety disorder) F41.1 and Panic disorder [episodic paroxysmal anxiety] without agoraphobia F41.0 [facility] [id number] [place] [address] 01245- 3136 Jun, [facility] [address] 37187- 4755 Jun, [facility] [address] 73518- 5977 Jun, Right foot pain M79.671 and Nausea and vomiting in adult R11.2 [facility] [address] 53326- 6693 May, [facility] [address] 44121- 8046 May, Other sinusitis, unspecified chronicity J32.9 ; Environmental allergies Z91.09 ; Other chronic pain G89.29 and Sacrococcygeal disorders, not elsewhere classified M53.3 [facility] [address] 30379 -6398 May, Acute non-recurrent pansinusitis J01.40 and Gastroenteritis K52.9 [facility] [address] 14612- 7271 May, [facility] [address] 57730- 3763 May, [facility] [address] 15036- 4982 Apr, Bronchitis J40 [facility] [address] 99873- 4815 Apr, [facility] [address] 82507- 4055 Apr, [facility] [address] 83241- 3103 Apr, [facility] [address], [place] [address] -5264 Apr, Nausea and vomiting in adult R11.2 [facility] [address], [place] [address]- 4786 Apr, Nausea and vomiting in adult R11.2 [facility] [id number] [place] [address] 36112- 3069 Apr, Bipolar 2 disorder F31.81 ; Generalized anxiety disorder F41.1 ; Panic disorder [episodic paroxysmal anxiety] without agoraphobia F41.0 ; Attention deficit disorder F90.0 and COLLEEN (generalized anxiety disorder) F41.1 [facility] [address] [address]- 4495 Apr, [facility] [id number] [place] [address] 50140- 4762 Mar, [facility] [address] [place] [address] 23865- 5221 Mar, [facility] [address] [place] [address] 38794- 4937 Mar, [facility] [address], [place] [address]- 5410 Mar, Bipolar 2 disorder F31.81 ; Attention deficit disorder F90.0 ; COLLEEN (generalized anxiety disorder) F41.1 and Panic disorder [episodic paroxysmal anxiety] without agoraphobia F41.0 [facility] [address], [place] [address]- 2610 Mar, [facility] [id number] [place] [address] 04886- 5094 Feb, Bipolar 2 disorder F31.81 ; Generalized anxiety disorder F41.1 and Attention deficit disorder F90.0 [facility] [address] [place] [address] 89223- 9184 Feb, Generalized anxiety disorder F41.1 [facility] [address] [place] [address] 81472- 7019 Feb, Generalized anxiety disorder F41.1 ; Attention deficit disorder F90.0 and Bipolar 2 disorder F31.81 [facility] [address] [place] [address] 50622- 9095 Feb, Bipolar 2 disorder F31.81 ; Generalized anxiety disorder F41.1 ; Attention deficit disorder F90.0 and Insomnia, unspecified type G47.00 [facility] [id number] [place] [address] 90489- 7152 Feb, Excessive sweating R61 and Breast lump in upper outer quadrant N63 [facility] [address] [place] [address] 79213 -2671 January, Low back pain M54.5 ; Other chronic pain G89.29 and Urinary tract infection, site unspecified N39.0 [facility] [id number] [place] [address] 78242- 8579 January, Bipolar II disorder F31.81 [facility] [id number] [place] [address] 05832- 9913 January, [facility] [id number] [place] [address] 78700- 0785 January, Insomnia, unspecified type G47.00 and Grief F43.20 [facility] [id number] [place] [address] 22415- 1246 January, [facility] [id number] [place] [address] 46381- 1881 Dec, [facility] [id number] [place] [address] 96086- 9121 Dec, [facility] [address] [place] [address] 57109- 7569 Dec, Bipolar 2 disorder F31.81 ; Generalized anxiety disorder F41.1 and Attention deficit disorder F90.0 [facility] [id number] [place] [address] 69977- 2685 Dec, Sinusitis J32.9 [facility] [id number] [place] [address] 21978- 2987 14 Dec, 2015 Sinusitis J32.9 and Hypothyroid E03.9 [facility] [address] 56756- 9804 Dec, [facility] [id number] [place] [address] 24266 -8247 Dec, Cough R05 and Allergic rhinitis J30.9 [facility] [id number] [place] [address] 16794- 6603 Nov, Hypertension I10 ; Obesity E66.9 and Acne L70.9 [place] [address] 27938- 5452 Nov, [facility] [id number] [place] [address] 13507- 9446 Oct, [facility] [address] 23677- 4577 Oct, [facility] [id number] [place] [address] 86010- 2189 Oct, [facility] [id number] [place] [address] 85983- 9888 Oct, [facility] [id number] [place] [address] 80299- 5373 Sep, Lymphadenitis I88.9 ; Essential hypertension I10 and Acne, unspecified acne type L70.9 [facility] [id number] [place] [address] 03681- 5676 Sep, [facility] [id number] [place] [address] 89441- 2680 Sep, [facility] [address], [place] [address]- 9093 Sep, [facility] [id number] [place] [address] 95701- 3241 Sep, Acquired hypothyroidism E03.9 [facility] [id number] [place] [address] 75071- 5576 Aug, Acquired hypothyroidism E03.9 [facility] [id number] [place] [address] 13226- 3299 Aug, Furuncle L02.92 [facility] [id number] [place] [address] 81829- 7029 Aug, [facility] [id number] [place] [address] 90018- 2101 Aug, Bipolar 2 disorder F31.81 ; Generalized anxiety disorder F41.1 ; Attention deficit disorder F90.0 and Obesity E66.9 [facility] [id number] [place] [address] 21756- 9460 Aug, [facility] [id number] [place] [address] 10792- 3493 Aug, [facility] [id number] [place] [address] 82363- 9164 Aug, Acquired hypothyroidism E03.9 [facility] [id number] [place] [address] 64162- 9339 Jul, Acquired hypothyroidism E03.9 ; Upper respiratory tract infection, unspecified type J06.9 and Nonintractable migraine, unspecified migraine type G43.009 [facility] [address] [place] [address] 67239- 6507 14 Jun, 2015 Acute pharyngitis, unspecified J02.9 [facility] [address] [place] [address] 09076- 6279 24 May, 2015 Bipolar II disorder 296.89 ; Attention deficit disorder of childhood without mention of hyperactivity 314.00 ; Generalized anxiety disorder 300.02 and Morbid obesity with BMI of 45.0-49.9, adult 278.01 [facility] [address], [place] [address]- 3396 May, Sinusitis 473.9 [facility] [address] [address]- 2546 Apr, [facility] [id number] [place] [address] 13453- 3216 Mar, [facility] [id number] [place] [address] 01481- 2546 Mar, Bipolar II disorder 296.89 ; Generalized anxiety disorder 300.02 ; Obesity, unspecified 278.00 and Attention deficit disorder 314.00 [facility] [address], [place] [address]- 6066 Feb, [facility] [id number] [place] [address] 98389- 8196 January, [facility] [address], [place] [address]- 5006 January, [facility] [id number] [place] [address] 59984- 2816 January, [facility] [address], [place] [address]- 2546 January, [facility] [address], [place] [address]- 6116 Dec, [facility] [address], [place] [address]- 2546 Dec, [facility] [id number] [place] [address] 09585- 2546 Nov, [facility] [address], [place] [address]- 2546 Nov, [facility] [address], [place] [address]- 9418 Nov, [facility] [place] [facility] [address] [id number] [place] [address]- 7177 11 Nov, 2014 [facility] [place] [facility] [address] [id number] [place] [address]- 7519 Nov, [facility] [place] [facility] [address] [id number] [place] [address]- 4331 Nov, [facility] [place] [facility] [address] [id number] [place] [address]- 5636 Nov, [facility] [place] [facility] [address] [id number] [place] [address]- 8173 Nov, [facility] [place] [facility] [address] [id number] [place] [address]- 4175 Nov, [facility] [place] [facility] [address] [id number] [place] [address]- 7663 Nov, [facility] [place] [facility] [address] [id number] [place] [address]- 5266 Nov, [facility] [place] [facility] [address] [id number] [place] [address]- 0015 Nov, [facility] [place] [facility] [address] [id number] [place] [address]- 0330 Nov, [facility] [place] [facility] [address] [id number] [place] [address]- 6844 Nov, [facility] [place] [facility] [address] [id number] [place] [address]- 2754 Oct, [facility] [place] [facility] [address] [id number] [place] [address]- 8798 Oct, [facility] [place] [facility] [address] [id number] [place] [address]- 9044 Oct, [facility] [place] [facility] [address] [id number] [place] [address]- 4936 Oct, [facility] [place] [facility] [address] [id number] [place] [address]- 8737 Oct, 2014 [facility] [place] [facility] [address] [id number] [place] [address]- 6936 Oct, 2014 [facility] [place] [facility] [address] [id number] [place] [address]- 9206 Oct, 2014 [facility] [place] [facility] [address] [id number] [place] [address]- 9936 Oct, 2014 [facility] [place] [facility] [address] [id number] [place] [address]- 8108 Oct, 2014 [facility] [place] [facility] [address] [id number] [place] [address]- 6706 Oct, 2014 [facility] [place] [facility] [address] [id number] [place] [address]- 2908 Oct, [facility] [place] [facility] [address] [id number] [place] [address]- 8223 Oct, [facility] [place] [facility] [address] [id number] [place] [address]- 8308 Sep, [facility] [place] [facility] [address] [id number] [place] [address]- 7821 Sep, [facility] [place] [facility] [address] [facility] [id number] [place] [address]- 7706 Sep, [facility] [place] [facility] [address] [id number] [place] [address]- [address] Sep, [facility] [place] [facility] [address] [id number] [place] [address] Sep, [facility] [place] [facility] [address] [id number] [place] [address] Sep, [facility] [place] [facility] [address] [id number] [place] [address] Sep, [facility] [place] [facility] [address] [id number] [place] [address] Sep, [facility] [place] [facility] [address] [id number] [place] [address] Aug, [facility] [place] [facility] [address] [id number] [place] [address] Aug, [facility] [place] [facility] [address] [id number] [place] [address] Aug, [facility] [place] [facility] [address] [id number] [place] [address] Aug, [facility] [place] [facility] [address] [id number] [place] [address] Aug, [facility] [place] [facility] [address] [id number] [place] [address] Aug, [facility] [place] [facility] [address] [id number] [place] [address] Aug, [facility] [place] [facility] [address] [id number] [place] [address] Aug, [facility] [place] [facility] [address] [id number] [place] [address] Aug, [facility] [place] [facility] [address] [id number] [place] [address] Aug, [facility] [place] [facility] [address] [id number] [place] [address] Aug, [facility] [place] [facility] [address] [id number] [place] [address] Aug, [facility] [place] [facility] [address] [id number] [place] [address] Aug, [facility] [place] [facility] [address] [id number] [place] Aug, [facility] [place] [facility] [address] [id number] [place] [address] Jul, [facility] [place] [facility] [address] [id number] [place] [address] 13 Jul, 2014 [facility] [place] [facility] [address] [id number] [place] [address] 13 Jul, 2014 [facility] [place] [facility] [address] [id number] [place] [address] Jul, [facility] [place] [facility] [address] [id number] [place] [address] Jul, [facility] [place] [facility] [address] [id number] [place] [address] Jul, [facility] [place] [facility] [address] [id number] [place] [address] Jul, [facility] [place] [facility] [address] [id number] [place] [address] Jul, [facility] [place] [facility] [address] [id number] [place] [address] Jul, [facility] [place] [facility] [address] [id number] [place] [address] 04 Jul, 2014 [facility] [place] [facility] [address] [id number] [place] [address] Jul, [facility] [place] [facility] [address] [facility] [id number] [place] [address] Jul, [facility] [place] [facility] [address] [id number] [place] [address] 16 Jun, 2014 [facility] [place] [facility] [address] [id number] [address] 16 Jun, 2014 [facility] [place] [facility] [address] [id number] [place] [address] 15 Jun, 2014 [facility] [place] [facility] [address] [id number] [place] [address] 9720 14 Jun, 2014 [facility] [place] [facility] [address] [id number] [address] 14 Jun, 2014 [facility] [place] [facility] [address] [id number] [place] [address] 14 Jun, 2014 [facility] [place] [facility] [address] [id number] [place] [address] 2245 14 Jun, 2014 [facility] [place] [facility] [address] [id number] [place] [address] 9818 13 Jun, 2014 [facility] [place] [facility] [address] [id number] [place] [address] 0577 10 Jun, 2014 [facility] [place] [facility] [address] [id number] [place] [address] 9987 10 Jun, 2014 [facility] [place] [facility] [address] [id number] [place] [address] 8929 09 Jun, 2014 [facility] [place] [facility] [address] [id number] [place] [address] 5421 09 Jun, 2014 [facility] [place] [facility] [address] [id number] [place] [address] 5882 06 Jun, 2014 [facility] [place] [facility] [address] [id number] [place] [address] 8506 06 Jun, 2014 [facility] [place] [facility] [address] [id number] [place] [address] 2133 16 May, 2014 [facility] [place] [facility] [address] [id number] [place] [address] 0449 15 May, 2013 [facility] [place] [facility] [address] [id number] [place] [address] 1289 15 May, 2013 [facility] [place] [facility] [address] [id number] [place] [address] 7842 15 May, 2013 [facility] [place] [facility] [address] [id number] [place] [address]- 2548 15 May, 2013 [facility] [place] [facility] [address] [id number] [place] [address]- 8757 15 May, 2013 [facility] [place] [facility] [address] [id number] [place] [address]- 9401 15 May, 2013 [facility] [place] [facility] [address] [id number] [place] [address] 2042 12 May, 2013 [facility] [place] [facility] [address] [id number] [place] [address] 6558 12 May, 2013 [facility] [place] [facility] [address] [id number] [place] [address]- 8415 10 May, 2013 [facility] [place] [facility] [address] [id number] [place] [address]- 8970 10 May, 2013 [facility] [place] [facility] [address] [id number] [place] [address]- 4189 02 May, 2013 [facility] [place] [facility] [address] [id number] [place] [address]- 3306 May, 2013 [facility] [place] [facility] [address] [id number] [place] [address]- 0726 May, 2013 [facility] [place] [facility] [address] [id number] [place] [address]- 7058 May, 2013 [facility] [place] [facility] [address] [id number] [place] [address] 8600 Apr, [facility] [place] [facility] [address] [id number] [place] [address] 3784 Apr, [facility] [place] [facility] [address] [id number] [place] [address] 7039 Apr, [facility] [place] [facility] [address] [id number] [place] [address]- 9065 Apr, [facility] [place] [facility] [address] [id number] [place] [address] 2513 Apr, [facility] [place] [facility] [address] [id number] [place] [address] 3848 Apr, [facility] [place] [facility] [address] [id number] [place] [address]- 5313 Apr, [facility] [place] [facility] [address] [id number] [place] [address] 4487 Apr, [facility] [place] [facility] [address] [id number] [place] [address] 3468 Apr, [facility] [place] [facility] [address] [id number] [place] [address] 6433 Mar, [facility] [place] [facility] [address] [id number] [place] [address] 2311 Mar, [facility] [place] [facility] [address] [id number] [place] [address] 8973 Mar, [facility] [place] [facility] [address] [id number] [place] [address]- 7233 Mar, [facility] [place] [facility] [address] [id number] [place] [address]- 5695 Mar, [facility] [place] [facility] [address] [id number] [place] [address]- 5661 Mar, [facility] [place] [facility] [address] [id number] [place] [address] 1430 Mar, [facility] [place] [facility] [address] [id number] [place] [address]- 4536 Mar, [facility] [place] [facility] [address] [id number] [place] [address] 6470 Mar, [facility] [place] [facility] [address] [id number] [place] [address]- 0238 Mar, [facility] [place] [facility] [address] [id number] [place] [address]- 7571 Mar, [facility] [place] [facility] [address] [id number] [place] [address]- 1271 Mar, [facility] [place] [facility] [address] [id number] [place] [address]- 7495 Mar, [facility] [place] [facility] [address] [id number] [place] [address]- 5517 Mar, [facility] [place] [facility] [address] [id number] [place] [address]- 0457 Mar, [facility] [place] [facility] [address] [id number] [place] [address]- 2797 Mar, [facility] [place] [facility] [address] [id number] [place] [address]- 3937 Mar, [facility] [place] [facility] [address] [id number] [place] [address]- 5492 Mar, [facility] [place] [facility] [address] [id number] [place] [address]- 0709 Feb, [facility] [place] [facility] [address] [id number] [place] [address]- 3153 Feb, [facility] [place] [facility] [address] [id number] [place] [address]- 8499 Feb, [facility] [place] [facility] [address] [id number] [place] [address]- 6788 Feb, [facility] [place] [facility] [address] [id number] [place] [address]- 1598 Feb, [facility] [place] [facility] [address] [id number] [place] [address]- 3328 Feb, [facility] [place] [facility] [address] [id number] [place] [address]- 0987 Feb, [facility] [place] [facility] [address] [id number] [place] [address]- 7464 Feb, [facility] [place] [facility] [address] [id number] [place] [address]- 1286 Feb, [facility] [place] [facility] [address] [id number] [place] [address]- 8165 Feb, [facility] [place] [facility] [address] [id number] [place] [address]- 5549 January, [facility] [place] [facility] [address] [id number] [place] [address]- 7833 January, [facility] [address] [id number] [place] [address]- 9961 January, [facility] [place] [facility] [address] [id number] [place] [address] January, [facility] [place] [facility] [address] [id number] [place] [address]- 0327 January, [facility] [place] [facility] [address] [id number] [place] [address]- 3490 January, [facility] [place] [facility] [address] [id number] [place] [address]- 9685 January, [facility] [place] [facility] [address] [id number] [place] [address]- 8187 January, [facility] [address] [id number] [place] [address]- 4538 January, [facility] [place] [facility] [address] [id number] [place] [address]- 3771 January, [facility] [place] [facility] [address] [id number] [place] [address]- 8245 January, [facility] [place] [facility] [address] [id number] [place] [address]- 3365 January, [facility] [place] [facility] [address] [id number] [place] [address]- 2891 January, [facility] [place] [facility] [address] [id number] [place] [address]- 4129 January, [facility] [place] [facility] [address] [id number] [place] [address]- 5835 January, [facility] [place] [facility] [address] [id number] [place] [address]- 4229 Dec, [facility] [place] [facility] [address] [id number] [place] [address]- 3967 Dec, [facility] [place] [facility] [address] [id number] [place] [address]- 9559 08 Dec, 2013 [facility] [place] [facility] [address] [id number] [place] [address]- 3061 Dec, [facility] [place] [facility] [address] [id number] [place] [address]- 6314 Dec, [facility] [place] [facility] [address] [id number] [place] [address]- 3878 Dec, [facility] [place] [facility] [address] [id number] [place] [address]- 6379 Nov, [facility] [place] [facility] [address] [id number] [place] [address]- 6816 Nov, [facility] [place] [facility] [address] [facility] [id number] [place] [address]- 3122 Nov, [facility] [place] [facility] [address] [id number] [place] [address]- 3585 Nov, [facility] [place] [facility] [address] [id number] [place] [address]- 8017 Nov, [facility] [place] [facility] [address] [id number] [place] [address]- 5885 Oct, [facility] [place] [facility] [address] [facility] [id number] [place] [address]- 5950 Oct, [facility] [place] [facility] [address] [id number] [place] [address]- 7215 Oct, [facility] [place] [facility] [address] [id number] [place] [address]- 1972 Oct, [facility] [place] [facility] [address] [id number] [place] [address]- 8504 10 Oct, 2013 [facility] [place] [facility] [address] [id number] [place] [address]- 1396 06 Oct, 2013 [facility] [place] [facility] [address] [id number] [place] [address]- 0008 06 Oct, 2013 [facility] [address] [id number] [place] [address]- 8352 Oct, [facility] [place] [facility] [address] [id number] [place] [address]87 Oct, [facility] [place] [facility] [address] [id number] [place] [address]- 6880 Oct, [facility] [place] [facility] [address] [id number] [place] [address]- 3742 Oct, [facility] [place] [facility] [address] [id number] [place] [address]- 3994 Sep, [facility] [place] [facility] [address] [id number] [place] [address]- 7871 Sep, [facility] [address] [id number] [place] [address]- 4950 Sep, [facility] [place] [facility] [address] [id number] [place] [address]- 4026 Sep, [facility] [place] [facility] [address] [id number] [place] [address]- 1401 Aug, [facility] [place] [facility] [address] [id number] [place] [address]- 5843 Aug, [facility] [place] [facility] [address] [id number] [place] [address]- 8752 Jul, [facility] [place] [facility] [address] [id number] [place] [address]- 7664 Jul, [facility] [place] [facility] [address] [id number] [place] [address]- 7326 Jul, [facility] [place] [facility] [address] [id number] [place] [address]- 3772 Jul, [facility] [place] [facility] [address] [id number] [place] [address] Jul, [facility] [place] [facility] [address] [id number] [place] [address]- 8027 Jun, [facility] [address] [id number] [place] [address]- 0393 Jun, [facility] [place] [facility] [address] [id number] [place] [address]- 5548 May, [facility] [place] [facility] [address] [id number] [place] [address]- 3106 Mar, [facility] [place] [facility] [address] [id number] [place] [address]- 5689 Mar, [facility] [place] [facility] [address] [id number] [place] [address]- 0799 Mar, [facility] [address] [id number] [place] [address]- 5179 Feb, [facility] [place] [facility] [address] [id number] [place] [address]- 6127 January, [facility] [address] [id number] [place] [address]- 3513 Dec, [facility] [place] [facility] [address] [id number] [place] [address]- 9726 Nov, [facility] [place] [facility] [address] [id number] [place] [address]- 3459 Nov, [facility] [place] [facility] [address] [id number] [place] [address]- 1478 Nov, [facility] [place] [facility] [address] [id number] [place] [address]- 1128 Oct, [facility] [place] [facility] [address] [id number] [place] [address]- 0962 Oct, [facility] [place] [facility] [address] [id number] [place] [address]- 6600 Oct, [facility] [place] [facility] [address] [id number] [place] [address] 2546 Oct, [facility] [address] [facility] [id number] [place] [address]- 2546 Sep, IMMUNIZATIONS No Known Immunizations SOCIAL HISTORY Never Assessed REASON FOR VISIT Refill request PLAN OF CARE VITAL SIGNS MEDICATIONS Medication Instructions Dosage Frequency Start Date End Date Duration Status Elavil 25 MG Orally Once a day 3 tablet 24h Dec, 2 days Active RESULTS No Results PROCEDURES No [...]
--- OUTSIDE RECORDS SUMMARY | 2018-02-03 13:23 | XMS REPORT ---
Author Author TEE CALLE Organization [facility] Address [address] [place] [address] Care Team Providers Care Command And Control Specialist Name Role Phone TEE CALLE Unavailable PROBLEMS Type Condition ICD9-CM Code [id number] Code Onset Dates Condition Status SNOMED Code Problem Postoperative hypothyroidism E89.0 Active 75049536 Problem Obesity E66.9 Active 455337891 Problem Bipolar 2 disorder F31.81 Active 60968078 Problem Panic disorder [episodic paroxysmal anxiety] without agoraphobia F41.0 Active 49200149 Problem COLLEEN (generalized anxiety disorder) F41.1 Active 83119835 Problem Attention deficit disorder F90.0 Active 740049288 Problem Generalized anxiety disorder F41.1 Active 21799699 Problem Acne L70.9 Active 39678077 Problem Hypertension I10 Active 51245450 ALLERGIES No Information SOCIAL HISTORY Never Assessed PLAN OF CARE VITAL SIGNS MEDICATIONS Unknown Medications RESULTS No Results PROCEDURES No Known procedures [...]
--- OUTSIDE RECORDS SUMMARY | 2018-02-03 13:23 | XMS REPORT ---
Author Author TEE CALLE [facility] Address [address] [place] [address] Care Team Providers Care Athletic Shoe Designer Name Role Phone TEE CALLE Unavailable PROBLEMS Type Condition ICD9-CM Code [id number]-[id number] Code Onset Dates Condition Status SNOMED Code Problem Postoperative hypothyroidism E89.0 Active 60471746 Problem Obesity E66.9 Active 472756560 Problem Bipolar 2 disorder F31.81 Active 21441825 Problem Panic disorder [episodic paroxysmal anxiety] without agoraphobia F41.0 Active 35994931 Problem COLLEEN (generalized anxiety disorder) F41.1 Active 42310674 Problem Attention deficit disorder F90.0 Active 846828943 Problem Generalized anxiety disorder F41.1 Active 41329622 Problem Acne L70.9 Active 94749171 Problem Hypertension I10 Active 21243571 ALLERGIES Unknown Allergies SOCIAL HISTORY No smoking Hx information available PLAN OF CARE VITAL SIGNS MEDICATIONS Medication Instructions Dosage Frequency Start Date End Date Duration Status Concerta 27 MG Orally Once a day for ADHD 1 tablet in the morning Oct 28 days Active RESULTS No Results PROCEDURES No Known procedures IMMUNIZATIONS No Known Immunizations
--- OUTSIDE RECORDS SUMMARY | 2018-02-03 13:23 | XMS REPORT ---
Author Author TEE CALLE [facility] Address [address] [place] [address] Care Team Providers Care Steamship Agent Name Role Phone TEE CALLE Unavailable PROBLEMS Type Condition ICD9-CM Code QDH03-SB Code Onset Dates Condition Status SNOMED Code Problem Postoperative hypothyroidism E89.0 Active 07887301 Problem Obesity E66.9 Active 323584060 Problem Bipolar 2 disorder F31.81 Active 47162135 Problem Panic disorder [episodic paroxysmal anxiety] without agoraphobia F41.0 Active 61831743 Problem COLLEEN (generalized anxiety disorder) F41.1 Active 41927993 Problem Attention deficit disorder F90.0 Active 777995733 Problem Generalized anxiety disorder F41.1 Active 93955720 Problem Acne L70.9 Active 05340536 Problem Hypertension I10 Active 65968882 ALLERGIES Unknown Allergies SOCIAL HISTORY No smoking Hx information available PLAN OF CARE VITAL SIGNS MEDICATIONS Unknown Medications RESULTS No Results PROCEDURES No Known procedures IMMUNIZATIONS No Known Immunizations
--- OUTSIDE RECORDS SUMMARY | 2018-02-03 13:23 | XMS REPORT ---
Author Author TEE CALLE Organization [facility] Address [address] [place] [address] Care Team Providers Care Welding Lead Burner Name Role Phone TEE CALLE Unavailable PROBLEMS Type Condition ICD9-CM Code [id number] Code Onset Dates Condition Status SNOMED Code Problem Postoperative hypothyroidism E89.0 Active 95571675 Problem Obesity E66.9 Active 205332803 Problem Bipolar 2 disorder F31.81 Active 87037438 Problem Panic disorder [episodic paroxysmal anxiety] without agoraphobia F41.0 Active 95611779 Problem COLLEEN (generalized anxiety disorder) F41.1 Active 39818078 Problem Attention deficit disorder F90.0 Active 146516438 Problem Generalized anxiety disorder F41.1 Active 77067286 Problem Acne L70.9 Active 37081603 Problem Hypertension I10 Active 53437400 ALLERGIES No Information SOCIAL HISTORY Never Assessed [...]
--- OUTSIDE RECORDS SUMMARY | 2018-02-03 13:24 | XMS REPORT ---
Author Author TEE CALLE Organization [facility] Address [address] [place] [address] Care Team Providers Care Central Supply Worker Name Role Phone TEE CALLE Unavailable PROBLEMS Type Condition ICD9-CM Code CQC30-JE Code Onset Dates Condition Status SNOMED Code Problem Postoperative hypothyroidism E89.0 Active 27751083 Problem Obesity E66.9 Active 987908193 Problem Bipolar 2 disorder F31.81 Active 75234450 Problem Panic disorder [episodic paroxysmal anxiety] without agoraphobia F41.0 Active 97662794 Problem COLLEEN (generalized anxiety disorder) F41.1 Active 98692148 Problem Attention deficit disorder F90.0 Active 884425048 Problem Generalized anxiety disorder F41.1 Active 42809640 Problem Acne L70.9 Active 48094845 Problem Hypertension I10 Active 81510749 ALLERGIES No Information SOCIAL HISTORY Never Assessed PLAN OF CARE VITAL SIGNS MEDICATIONS Medication Instructions Dosage Frequency Start Date End Date Duration Status Rozerem 8 MG Orally for sleep 1 tablet at bedtime as needed Sep, Active RESULTS No Results PROCEDURES No [...]
--- OUTSIDE RECORDS SUMMARY | 2018-02-03 13:24 | XMS REPORT ---
Author Author BALJIT OSEI Organization [facility] Address [address] [place] [address] Care Team Providers Care Research Home Economist Name Role Phone BALJIT OSEI Unavailable PROBLEMS Type Condition ICD9-CM Code XHT34-QI Code Onset Dates Condition Status SNOMED Code Problem Acne L70.9 Active 49068026 Problem Sciatica of right side M54.31 Active 83175883 Problem Panic disorder [episodic paroxysmal anxiety] without agoraphobia F41.0 Active 51290653 Problem Attention-deficit hyperactivity disorder, predominantly inattentive type F90.0 Active 41927712 Problem Current nonadherence to medical treatment Z91.19 Active 9275572 Problem Acquired hypothyroidism E03.9 Active 557600248 Problem Essential hypertension I10 Active 07660746 Problem Primary insomnia F51.01 Active 7903963 Problem Migraine with aura and without status migrainosus, not intractable G43.109 Active 6683758 Problem Abnormal liver function K76.89 Active 79102857 Problem Obesity E66.9 Active 900723536 Problem Bipolar 2 disorder F31.81 Active 90666993 Problem Postoperative hypothyroidism E89.0 Active 61383923 Problem Generalized anxiety disorder F41.1 Active 76154420 ALLERGIES No Information ENCOUNTERS Encounter Location Date Diagnosis [facility] [address] [address] Nov, Normal physical exam Z00.00 and Enlarged lymph node R59.9 [facility] [address] [address] Nov, Enlarged lymph node R59.9 ; Abnormal liver function K76.89 and Hypothyroid E03.9 [facility] [id number] [address] Oct, Bipolar 2 disorder F31.81 [place] [id number] [place] [address] 49550- 5735 28 Oct, 2017 Sciatica of right side M54.31 and Essential hypertension I10 [facility] [id number] [place] [address] 44956- 4370 Oct, [facility] [id number] [place] [address] 02660- 0880 Aug, Hypothyroid E03.9 [place] [id number] [place] [address] 35058- 9461 Aug, [place] [id number] [place] [address] 20791- 6462 Aug, Bipolar 2 disorder F31.81 [place] [id number] [place] [address] 59009- 7973 Aug, Abnormal liver function K76.89 [place] [id number] [place] [address] 40125- 5446 Jul, Bipolar 2 disorder F31.81 [facility] [id number] [place] [address] 62739 -7033 Jul, [place] [id number] [place] [address] 90513- 6616 Jul, Bipolar 2 disorder F31.81 ; Generalized anxiety disorder F41.1 ; Attention-deficit hyperactivity disorder, predominantly inattentive type F90.0 and Current nonadherence to medical treatment Z91.19 [facility] [id number] [place] [address] 15949 -2141 14 Jul, 2017 Essential hypertension I10 ; Other viral agents as the cause of diseases classified elsewhere B97.89 ; Acute upper respiratory infection, unspecified J06.9 and BMI 40.0-44.9, adult Z68.41 [facility] [id number] [place] [address] 92339- 5123 13 Jul, 2017 [place] [id number] [place] [address] 38136- 0893 Jul, [facility] [id number] [place] [address] 19956- 4005 Jun, [facility] [id number] [place] [address] 38633- 3912 Jun, [facility] [id number] [place] [address] 58260- 8744 Jun, Dysuria R30.0 ; Urinary tract infection, site not specified N39.0 ; Hematuria, unspecified R31.9 ; Sciatica of right side M54.31 ; Migraine with aura and without status migrainosus, not intractable G43.109 ; Primary insomnia F51.01 ; Essential hypertension I10 and Acquired hypothyroidism E03.9 [facility] [id number] [place] [address] 46265- 2118 Jun, Bipolar 2 disorder F31.81 [place] [id number] [place] [address] 59050- 2406 Jun, Bipolar 2 disorder F31.81 [place] [id number] [place] [address] 17061- 3000 May, Sore throat J02.9 ; Acute serous otitis media of left ear, recurrence not specified H65.02 and Hypertension I10 [place] [id number] [place] [address] 64012- 8024 May, Bipolar 2 disorder F31.81 [facility] [id number] [place] [address] 52521- 4902 Apr, [facility] [id number] [place] [address] 43701- 0621 Apr, Bipolar 2 disorder F31.81 [facility] [id number] [place] [address] 46381- 5295 Mar, [facility] [id number] [place] [address] 72170- 9119 Feb, Bipolar 2 disorder F31.81 ; Attention deficit disorder F90.0 ; COLLEEN (generalized anxiety disorder) F41.1 and Panic disorder [episodic paroxysmal anxiety] without agoraphobia F41.0 [facility] [address] [address] 7314 January, Bipolar 2 disorder F31.81 [facility] [address] [address]- 7973 Dec, [facility] [id number] [place] [address] 75230- 5198 Dec, [facility] [id number] [place] [address] 58655- 4663 Dec, [facility] [id number] [place] [address] 66837- 4034 Dec, Generalized anxiety disorder F41.1 ; Bipolar 2 disorder F31.81 and Panic disorder [episodic paroxysmal anxiety] without agoraphobia F41.0 [facility] [id number] [place] [address] 42899- 3962 Dec, [facility] [address] [address]- 8165 Dec, [facility] [id number] [place] [address] 20611- 3883 Nov, [facility] [address] [address]- 1129 Nov, [facility] [id number] [address]- 0226 Nov, [facility] [address] [place] [address]- 8994 Oct, [facility] [id number] [address]- 0139 Oct, [facility] [address] [address]- 2830 Oct, [facility] [id number] [address]- 3708 Oct, [facility] [id number] [place] [address] 90366- 2726 Oct, [facility] [id number] [place] [address] 13452- 4497 Sep, Bipolar 2 disorder F31.81 ; COLLEEN (generalized anxiety disorder) F41.1 ; Attention deficit disorder F90.0 and Panic disorder [episodic paroxysmal anxiety] without agoraphobia F41.0 [facility] [id number] [place] [address] 35417- 0250 Sep, [facility] [id number] [place] [address] 16831- 9604 Sep, [facility] [id number] [place] [address] 42774- 4373 Sep, [facility] [id number] [place] [address] 26249- 9329 Aug, [facility] [id number] [place] [address] 64809- 3419 Aug, [facility] [id number] [place] [address] 01547- 3466 Aug, [facility] [id number] [place] [address] 97531- 3018 Aug, [facility] [id number] [place] [address] 41426- 9960 Jul, [facility] [id number] [place] [address] 95612- 4856 Jul, [facility] [id number] [place] [address] 60123- 4862 Jul, [facility] [id number] [place] [address] 34065- 3231 Jun, [facility] [id number] [place] [address] 48179- 4863 Jun, Bipolar 2 disorder F31.81 ; Attention deficit disorder F90.0 ; COLLEEN (generalized anxiety disorder) F41.1 and Panic disorder [episodic paroxysmal anxiety] without agoraphobia F41.0 [facility] [id number] [place] [address] 82437- 7643 Jun, [facility] [address] 93694- 7190 Jun, [facility] [address] 14708- 0239 Jun, Right foot pain M79.671 and Nausea and vomiting in adult R11.2 [facility] [address] 35797- 9395 May, [facility] [address] 54948- 5063 May, Other sinusitis, unspecified chronicity J32.9 ; Environmental allergies Z91.09 ; Other chronic pain G89.29 and Sacrococcygeal disorders, not elsewhere classified M53.3 [facility] [id number] [place] [address] 87557 -5314 May, Acute non-recurrent pansinusitis J01.40 and Gastroenteritis K52.9 [facility] [id number] [place] [address] 70367- 2456 May, [facility] [address] 07986- 1659 May, [facility] [id number] [place] [address] 70553- 9817 Apr, Bronchitis J40 [facility] [address] 30353- 6404 Apr, [facility] [address] 02568- 0392 Apr, [facility] [address] [place] [address]- 6306 Apr, [facility] [address] [address]6528 Apr, Nausea and vomiting in adult R11.2 [facility] [address] [address]- 2526 Apr, Nausea and vomiting in adult R11.2 [facility] [id number] [place] [address] 53022- 7118 Apr, Bipolar 2 disorder F31.81 ; Generalized anxiety disorder F41.1 ; Panic disorder [episodic paroxysmal anxiety] without agoraphobia F41.0 ; Attention deficit disorder F90.0 and COLLEEN (generalized anxiety disorder) F41.1 [facility] [address] [address]- 0657 Apr, [facility] [id number] [place] [address] 70470- 3686 Mar, [facility] [address] [address]- 7536 Mar, [facility] [id number] [place] [address] 71487- 8397 Mar, [facility] [address] [address]- 5707 Mar, Bipolar 2 disorder F31.81 ; Attention deficit disorder F90.0 ; COLLEEN (generalized anxiety disorder) F41.1 and Panic disorder [episodic paroxysmal anxiety] without agoraphobia F41.0 [facility] [address] [address]- 7174 Mar, [facility] [address] [address]- 3232 Feb, Bipolar 2 disorder F31.81 ; Generalized anxiety disorder F41.1 and Attention deficit disorder F90.0 [facility] [address] [address]- 2712 Feb, Generalized anxiety disorder F41.1 [facility] [address] [address]- 5575 Feb, Generalized anxiety disorder F41.1 ; Attention deficit disorder F90.0 and Bipolar 2 disorder F31.81 [facility] [address] [address]- 7220 Feb, Bipolar 2 disorder F31.81 ; Generalized anxiety disorder F41.1 ; Attention deficit disorder F90.0 and Insomnia, unspecified type G47.00 [facility] [id number] [place] [address] 39783- 4920 Feb, Excessive sweating R61 and Breast lump in upper outer quadrant N63 [facility] [id number] [place] [address] 28171 -3592 January, Low back pain M54.5 ; Other chronic pain G89.29 and Urinary tract infection, site unspecified N39.0 [facility] [id number] [place] [address] 77711- 3381 January, Bipolar II disorder F31.81 [facility] [id number] [place] [address] 00611- 3386 January, [facility] [id number] [place] [address] 74450- 6874 January, Insomnia, unspecified type G47.00 and Grief F43.20 [facility] [id number] [place] [address] 97508- 5723 January, [facility] [id number] [place] [address] 73567- 7571 Dec, [facility] [id number] [place] [address] 79479- 6761 Dec, [facility] [id number] [place] [address] 32983- 0909 Dec, Bipolar 2 disorder F31.81 ; Generalized anxiety disorder F41.1 and Attention deficit disorder F90.0 [facility] [address] 42911- 8043 21 Dec, 2015 Sinusitis J32.9 [facility] [address] 41104- 4075 14 Dec, 2015 Sinusitis J32.9 and Hypothyroid E03.9 [facility] [address] 50716- 5877 Dec, [facility] [address] 93459 -8208 11 Dec, 2015 Cough R05 and Allergic rhinitis J30.9 [facility] [address] 02064- 5820 Nov, Hypertension I10 ; Obesity E66.9 and Acne L70.9 [facility] [address] 80143- 3072 Nov, [facility] [address] 10781- 5690 Oct, [facility] [address] 04666- 1309 Oct, [facility] [address] 83446- 3991 Oct, [facility] [address] 32259- 3721 Oct, [facility] [address] 24529- 2528 Sep, Lymphadenitis I88.9 ; Essential hypertension I10 and Acne, unspecified acne type L70.9 [facility] [id number] [place] [address] 80391- 0868 Sep, [facility] [address] 03919- 1387 Sep, [place] [address] [address]- 7373 Sep, [facility] [id number] [place] [address] 80670- 4980 Sep, Acquired hypothyroidism E03.9 [facility] [id number] [place] [address] 00067- 3959 Aug, Acquired hypothyroidism E03.9 [facility] [id number] [place] [address] 10186- 7176 Aug, Furuncle L02.92 [facility] [id number] [place] [address] 83482- 0021 Aug, [facility] [id number] [place] [address] 03414- 1167 Aug, Bipolar 2 disorder F31.81 ; Generalized anxiety disorder F41.1 ; Attention deficit disorder F90.0 and Obesity E66.9 [facility] [id number] [place] [address] 70123- 0225 Aug, [facility] [id number] [place] [address] 43331- 4695 Aug, [facility] [id number] [place] [address] 68447- 7483 Aug, Acquired hypothyroidism E03.9 [facility] [id number] [place] [address] 77263- 1521 Jul, Acquired hypothyroidism E03.9 ; Upper respiratory tract infection, unspecified type J06.9 and Nonintractable migraine, unspecified migraine type G43.009 [facility] [id number] [place] [address] 72894- 7390 14 Jun, 2015 Acute pharyngitis, unspecified J02.9 [facility] [id number] [place] [address] 56863- 8309 24 May, 2015 Bipolar II disorder 296.89 ; Attention deficit disorder of childhood without mention of hyperactivity 314.00 ; Generalized anxiety disorder 300.02 and Morbid obesity with BMI of 45.0-49.9, adult 278.01 [facility] [address] [address]- 0116 May, Sinusitis 473.9 [facility] [id number] [address]- 1076 Apr, [facility] [id number] [place] [address] 06217- 2286 Mar, [facility] [id number] [place] [address] 78464- 9334 Mar, Bipolar II disorder 296.89 ; Generalized anxiety disorder 300.02 ; Obesity, unspecified 278.00 and Attention deficit disorder 314.00 [facility] [id number] [address]- 0176 Feb, [facility] [id number] [place] [address] 44728- 1466 January, [facility] [id number] [place] [address] 45745- 8670 January, [facility] [id number] [place] [address] 41472- 1756 January, [facility] [address] [address]- 1936 January, [facility] [address] [address]- 0226 Dec, [facility] [address] [address]- 5021 Dec, [facility] [id number] [place] [address] 79471 2546 Nov, [facility] [address] [address]- 2546 Nov, [facility] [id number] [place] [address] 26697- 3469 Nov, [facility] [place] [facility] [address] [id number] [place] [address]- 9250 Nov, [facility] [place] [facility] [address] [id number] [place] [address]- 7784 Nov, [facility] [place] [facility] [address] [id number] [place] [address]- 0845 Nov, [facility] [place] [facility] [address] [id number] [place] [address]- 9576 Nov, [facility] [place] [facility] [address] [id number] [place] [address]- 1614 Nov, [facility] [place] [facility] [address] [id number] [place] [address]- 4030 Nov, [facility] [place] [facility] [address] [id number] [place] [address]- 7411 Nov, [facility] [place] [facility] [address] [id number] [place] [address]- 0044 Nov, [facility] [place] [facility] [address] [id number] [place] [address]- 6782 Nov, [facility] [place] [facility] [address] [id number] [place] [address]- 0878 Nov, [facility] [place] [facility] [address] [id number] [place] [address]- 7559 Nov, [facility] [place] [facility] [address] [id number] [place] [address]- 3369 Oct, [facility] [place] [facility] [address] [id number] [place] [address]- 6533 Oct, [facility] [place] [facility] [address] [id number] [place] [address]- 8437 Oct, [facility] [place] [facility] [address] [id number] [place] [address]- 7384 Oct, [facility] [place] [facility] [address] [id number] [place] [address]- 4519 Oct, 2014 [facility] [place] [facility] [address] [id number] [place] [address]- 1645 Oct, 2014 [facility] [place] [facility] [address] [id number] [place] [address]- 1556 Oct, 2014 [facility] [place] [facility] [address] [id number] [place] [address]- 2286 Oct, 2014 [facility] [place] [facility] [address] [id number] [place] [address]- 8540 Oct, 2014 [facility] [place] [facility] [address] [id number] [place] [address]- 7741 Oct, 2014 [facility] [place] [facility] [address] [id number] [place] [address]- 6111 Oct, [facility] [place] [facility] [address] [id number] [place] [address]- 3616 Oct, [facility] [place] [facility] [address] [id number] [place] [address]- 2254 Sep, [facility] [place] [facility] [address] [facility] [id number] [place] [address]- 5670 Sep, [facility] [place] [facility] [address] [facility] [id number] [place] [address]- 8627 Sep, [facility] [place] [facility] [address] [id number] [place] [address]- 3531 Sep, [facility] [place] [facility] [address] [id number] [place] [address]- 9816 Sep, [facility] [place] [facility] [address] [id number] [place] [address]- 2459 Sep, [facility] [place] [facility] [address] [id number] [place] [address]- 2038 Sep, [facility] [place] [facility] [address] [id number] [place] [address]- 6981 Sep, [facility] [place] [facility] [address] [id number] [place] [address]- 3454 Aug, [facility] [place] [facility] [address] [id number] [place] [address] Aug, [facility] [place] [facility] [address] [id number] [place] [address] Aug, [facility] [place] [facility] [address] [id number] [place] [address] Aug, [facility] [place] [facility] [address] [id number] [place] [address] Aug, [facility] [place] [facility] [address] [id number] [place] [address] Aug, [facility] [place] [facility] [address] [id number] [place] [address] Aug, [facility] [place] [facility] [address] [id number] [place] [address] Aug, [facility] [place] [facility] [address] [id number] [place] [address] Aug, [facility] [place] [facility] [address] [id number] [place] [address]- [address] Aug, [facility] [place] [facility] [address] [id number] [place] [address] Aug, [facility] [place] [facility] [address] [id number] [place] [address] Aug, [facility] [place] [facility] [address] [id number] [place] [address] Aug, [facility] [place] [facility] [address] [id number] [place] [address] Aug, [facility] [place] [facility] [address] [id number] [place] [address] Jul, [facility] [place] [facility] [address] [id number] [place] [address] 13 Jul, 2014 [facility] [place] [facility] [address] [id number] [place] [address] Jul, [facility] [place] [facility] [address] [id number] [place] [address] Jul, [facility] [place] [facility] [address] [id number] [place] [address] Jul, [facility] [place] [facility] [address] [id number] [place] [address] Jul, [facility] [place] [facility] [address] [id number] [place] [address] Jul, [facility] [place] [facility] [address] [id number] [place] [address] Jul, [facility] [place] [facility] [address] [id number] [place] [address] Jul, [facility] [place] [facility] [address] [id number] [place] [address] Jul, [facility] [place] [facility] [address] [id number] [place] [address]- [address] Jul, [facility] [place] [facility] [address] [id number] [place] [address] Jul, [facility] [place] [facility] [address] [id number] [place] [address] 16 Jun, 2014 [facility] [place] [facility] [address] [address] [id number] [place] [address] 16 Jun, 2014 [facility] [place] [facility] [address] [id number] [place] [address] 15 Jun, 2014 [facility] [place] [facility] [address] [id number] [place] [address] 6214 14 Jun, 2014 [facility] [place] [facility] [address] [id number] [place] [address] 3436 14 Jun, 2014 [facility] [place] [facility] [address] [id number] [place] [address] 7794 14 Jun, 2014 [facility] [place] [facility] [address] [id number] [place] [address] 14 Jun, 2014 [facility] [place] [facility] [address] [id number] [place] [address] 3434 13 Jun, 2014 [facility] [place] [facility] [address] [id number] [place] [address] 1641 10 Jun, 2014 [facility] [place] [facility] [address] [id number] [place] [address] 7278 10 Jun, 2014 [facility] [place] [facility] [address] [id number] [place] [address] 0050 09 Jun, 2014 [facility] [place] [facility] [address] [id number] [place] [address] 7889 09 Jun, 2014 [facility] [place] [facility] [address] [id number] [place] [address] 2549 06 Jun, 2014 [facility] [place] [facility] [address] [id number] [place] [address] 2835 06 Jun, 2014 [facility] [place] [facility] [address] [id number] [place] [address] 3721 16 May, 2014 [facility] [place] [facility] [address] [id number] [place] [address] 9478 15 May, 2014 [facility] [place] [facility] [address] [id number] [place] [address] 5511 15 May, 2013 [facility] [place] [facility] [address] [id number] [place] [address] 7458 15 May, 2014 [facility] [place] [facility] [address] [id number] [place] [address] 6483 15 May, 2014 [facility] [place] [facility] [address] [id number] [place] [address] 5193 15 May, 2013 [facility] [place] [facility] [address] [id number] [place] [address] 0039 15 May, 2013 [facility] [place] [facility] [address] [id number] [place] [address]- 6186 12 May, 2013 [facility] [place] [facility] [address] [id number] [place] [address] 0160 12 May, 2013 [facility] [place] [facility] [address] [id number] [place] [address] 2191 10 May, 2013 [facility] [place] [facility] [address] [id number] [place] [address]- 0655 10 May, 2013 [facility] [place] [facility] [address] [id number] [place] [address]- 7796 May, [facility] [place] [facility] [address] [id number] [place] [address] 6476 May, [facility] [place] [facility] [address] [id number] [place] [address]- 4769 May, [facility] [place] [facility] [address] [id number] [place] [address] 5105 May, [facility] [place] [facility] [address] [id number] [place] [address] 3851 Apr, [facility] [place] [facility] [address] [id number] [place] [address] 4987 Apr, [facility] [place] [facility] [address] [id number] [place] [address] 2493 Apr, [facility] [place] [facility] [address] [id number] [place] [address] 1996 Apr, [facility] [place] [facility] [address] [id number] [place] [address]- 6266 Apr, [facility] [place] [facility] [address] [id number] [place] [address] 3210 Apr, [facility] [place] [facility] [address] [id number] [place] [address] 2204 Apr, [facility] [place] [facility] [address] [id number] [place] [address] 1621 Apr, [facility] [place] [facility] [address] [id number] [place] [address] 0698 Apr, [facility] [place] [facility] [address] [id number] [place] [address] 2068 Mar, [facility] [place] [facility] [address] [id number] [place] [address] 3110 Mar, [facility] [place] [facility] [address] [id number] [place] [address]- 1068 Mar, [facility] [place] [facility] [address] [id number] [place] [address] 6022 Mar, [facility] [place] [facility] [address] [id number] [place] [address]- 1029 Mar, [facility] [place] [facility] [address] [id number] [place] [address] 3232 Mar, [facility] [place] [facility] [address] [id number] [place] [address]- 4538 Mar, [facility] [place] [facility] [address] [id number] [place] [address] 3177 Mar, [facility] [place] [facility] [address] [id number] [place] [address] 5092 Mar, [facility] [place] [facility] [address] [id number] [place] [address]- 9597 Mar, [facility] [place] [facility] [address] [id number] [place] [address]- 9459 Mar, [facility] [place] [facility] [address] [id number] [place] [address]- 5802 Mar, [facility] [place] [facility] [address] [id number] [place] [address]- 9146 Mar, [facility] [place] [facility] [address] [id number] [place] [address]- 0228 Mar, [facility] [place] [facility] [address] [id number] [place] [address] 1893 Mar, [facility] [place] [facility] [address] [id number] [place] [address]- 5408 Mar, [facility] [place] [facility] [address] [id number] [place] [address]- 9361 Mar, [facility] [place] [facility] [address] [id number] [place] [address]- 2645 Mar, [facility] [place] [facility] [address] [id number] [place] [address]- 7592 Feb, [facility] [place] [facility] [address] [id number] [place] [address]- 4291 Feb, [facility] [place] [facility] [address] [id number] [place] [address]- 1834 Feb, [facility] [place] [facility] [address] [id number] [place] [address] 1641 Feb, [facility] [place] [facility] [address] [id number] [place] [address]- 0683 Feb, [facility] [place] [facility] [address] [id number] [place] [address] 4805 Feb, [facility] [place] [facility] [address] [id number] [place] [address]- 9708 Feb, [facility] [place] [facility] [address] [id number] [place] [address] 1616 Feb, [facility] [place] [facility] [address] [id number] [place] [address]- 1216 Feb, [facility] [place] [facility] [address] [id number] [place] [address] 1996 Feb, [facility] [place] [facility] [address] [id number] [place] [address] 9334 January, [facility] [place] [facility] [address] [id number] [place] [address]- 9243 January, [facility] [address] [id number] [place] [address]- 5892 January, [facility] [place] [facility] [address] [id number] [place] [address]- 0538 January, [facility] [place] [facility] [address] [id number] [place] [address]- 6030 January, [facility] [place] [facility] [address] [id number] [place] [address]- 9038 January, [facility] [place] [facility] [address] [id number] [place] [address]- 7686 January, [facility] [place] [facility] [address] [id number] [place] [address]- 6187 January, [facility] [address] [id number] [place] [address]- 1175 January, [facility] [place] [facility] [address] [id number] [place] [address]- 8696 January, [facility] [place] [facility] [address] [id number] [place] [address]- 4301 January, [facility] [place] [facility] [address] [id number] [place] [address]- 1628 January, [facility] [place] [facility] [address] [id number] [place] [address]- 0459 January, [facility] [place] [facility] [address] [id number] [place] [address]- 2010 January, [facility] [place] [facility] [address] [id number] [place] [address]- 1002 January, [facility] [place] [facility] [address] [id number] [place] [address]- 8990 Dec, [facility] [place] [facility] [address] [id number] [place] [address]- 0055 Dec, [facility] [place] [facility] [address] [id number] [place] [address]- 7895 Dec, [facility] [place] [facility] [address] [id number] [place] [address]- 7936 Dec, [facility] [place] [facility] [address] [id number] [place] [address]- 7161 Dec, [facility] [place] [facility] [address] [id number] [place] [address]- 4101 Dec, [facility] [place] [facility] [address] [id number] [place] [address]- 1170 Nov, [facility] [place] [facility] [address] [id number] [place] [address]- 2820 Nov, [facility] [place] [facility] [address] [id number] [place] [address]- 2568 Nov, [facility] [place] [facility] [address] [id number] [place] [address]- 2176 Nov, [facility] [place] [facility] [address] [id number] [place] [address]- 3655 Nov, [facility] [place] [facility] [address] [id number] [place] [address]- 7520 Oct, [facility] [place] [facility] [address] [id number] [place] [address]- 1081 Oct, [facility] [place] [facility] [address] [id number] [place] [address]- 8560 Oct, [facility] [place] [facility] [address] [id number] [place] [address]- 3262 Oct, [facility] [place] [facility] [address] [id number] [place] [address]- 2374 10 Oct, 2013 [facility] [place] [facility] [address] [id number] [place] [address]- 1958 06 Oct, 2013 [facility] [place] [facility] [address] [id number] [place] [address]- 7152 06 Oct, 2013 [facility] [place] [facility] [address] [id number] [place] [address]- 5583 04 Oct, 2013 [facility] [place] [facility] [address] [id number] [place] [address]- 6994 Oct, [facility] [place] [facility] [address] [id number] [place] [address]- 6858 Oct, [facility] [place] [facility] [address] [id number] [place] [address]- 2872 Oct, [facility] [place] [facility] [address] [id number] [place] [address]- 4519 Sep, [facility] [place] [facility] [address] [id number] [place] [address]- 3442 Sep, [facility] [place] [facility] [address] [id number] [place] [address]- 8894 Sep, [facility] [place] [facility] [address] [id number] [place] [address]- 3244 Sep, [facility] [place] [facility] [address] [id number] [place] [address]- 2673 Aug, [facility] [place] [facility] [address] [id number] [place] [address]- 3838 Aug, [facility] [place] [facility] [address] [id number] [place] [address]- 6553 Jul, [facility] [place] [facility] [address] [id number] [place] [address]- 2050 Jul, [facility] [place] [facility] [address] [id number] [place] [address]- 5051 Jul, [facility] [place] [facility] [address] [id number] [place] [address]- 0511 Jul, [facility] [place] [facility] [address] [id number] [place] [address]- 6814 Jul, [facility] [place] [facility] [address] [id number] [place] [address]- 7092 Jun, [facility] [address] [id number] [place] [address]- 8423 Jun, [facility] [address] [id number] [place] [address]- 1388 May, [facility] [place] [facility] [address] [id number] [place] [address]- 2798 Mar, [facility] [address] [id number] [place] [address]- 2733 Mar, [facility] [place] [facility] [address] [id number] [place] [address]- 2546 Mar, [facility] [address] [id number] [place] [address]- 5541 Feb, [facility] [address] [id number] [place] [address]- 3696 January, [facility] [address] [id number] [place] [address]- 3014 Dec, [facility] [address] [id number] [place] [address]- 1934 Nov, [facility] [place] [facility] [address] [id number] [place] [address]- 2545 Nov, [facility] [place] [facility] [address] [id number] [place] [address]- 2543 Nov, [facility] [place] [facility] [address] [id number] [place] [address]- 2541 Oct, [facility] [place] [facility] [address] [id number] [place] [address]- 2546 Oct, [facility] [place] [facility] [address] [id number] [place] [address]- 2546 Oct, [facility] [place] [facility] [address] [id number] [place] [address]- 5956 Oct, [facility] [address] [facility] [id number] [place] [address]- 2546 Sep, IMMUNIZATIONS No Known Immunizations SOCIAL HISTORY Never Assessed REASON FOR VISIT Refill Denial PLAN OF CARE VITAL SIGNS MEDICATIONS No Known Medications RESULTS No Results PROCEDURES No Known [...]
--- OUTSIDE RECORDS SUMMARY | 2018-02-03 13:25 | XMS REPORT ---
Author Author TEE CALLE Organization [facility] Address [address] [place] [address] Care Team Providers Care Network Services Project Manager Name Role Phone TEE CALLE Unavailable PROBLEMS Type Condition ICD9-CM Code [id number] Code Onset Dates Condition Status SNOMED Code Problem Postoperative hypothyroidism E89.0 Active 73527969 Problem Obesity E66.9 Active 933797650 Problem Bipolar 2 disorder F31.81 Active 93088949 Problem Panic disorder [episodic paroxysmal anxiety] without agoraphobia F41.0 Active 21017334 Problem COLLEEN (generalized anxiety disorder) F41.1 Active 39768647 Problem Attention deficit disorder F90.0 Active 949557790 Problem Generalized anxiety disorder F41.1 Active 36908206 Problem Acne L70.9 Active 73449872 Problem Hypertension I10 Active 03945343 ALLERGIES Substance Reaction Event Type Date Status Penicillin V Potassium hives Drug Allergy Sep, Active Hydrocodone Failed UDS Non Drug Allergy Sep, Active Benzodiazepines Failed UDS Non Drug Allergy Sep, Active SOCIAL HISTORY Never Assessed PLAN OF CARE Activity Details Follow Up 2 Months Reason: VITAL SIGNS Height 59 in 2016-10-10 Weight 215.3 lbs 2016-10-10 Heart Rate 90 bpm 2016-10-10 Respiratory Rate 22 2016-10-10 BMI 43.48 kg/m2 2016-10-10 Blood pressure systolic 134 mmHg 2016-10-10 Blood pressure diastolic 80 mmHg 2016-10-10 MEDICATIONS Medication Instructions Dosage Frequency Start Date End Date Duration Status Guanfacine HCl 2 MG Orally 1/2 tab in AM and 1 tab HS 1 tablet Active Concerta 27 MG Orally Once a day for ADHD 1 tablet in the morning Sep Active Maxalt 10 mg Orally Once a day 1 tablet as needed one time 24h Active Levothyroxine Sodium 200 MCG Orally Once a day 1 tablet 24h 30 Active Rozerem 8 MG Orally for sleep 1 tablet at bedtime as needed Sep, Active Lisinopril 20 mg Orally Once a day 1 tablet 24h 30 Active Loxapine Succinate 10 mg Orally 1 tab in AM and 2 tabs at HS 1 capsule Active RESULTS [...]
--- OUTSIDE RECORDS SUMMARY | 2018-02-03 13:25 | XMS REPORT ---
Author Author TEE CLALE [facility] Address [address] [place] [address] Care Team Providers Care [employer] Professor Name Role Phone TEE CALLE Unavailable PROBLEMS Type Condition ICD9-CM Code RNE18-[id number] Code Onset Dates Condition Status SNOMED Code Problem Postoperative hypothyroidism E89.0 Active 52773828 Problem Obesity E66.9 Active 987559817 Problem Bipolar 2 disorder F31.81 Active 32542921 Problem Panic disorder [episodic paroxysmal anxiety] without agoraphobia F41.0 Active 28879216 Problem COLLEEN (generalized anxiety disorder) F41.1 Active 95398215 Problem Attention deficit disorder F90.0 Active 616168508 Problem Generalized anxiety disorder F41.1 Active 10021317 Problem Acne L70.9 Active 83431810 Problem Hypertension I10 Active 34533699 ALLERGIES Unknown Allergies SOCIAL HISTORY No smoking Hx information available PLAN OF CARE VITAL SIGNS MEDICATIONS Medication Instructions Dosage Frequency Start Date End Date Duration Status Ambien 5 mg 1 tablet at bedtime Sep, 28 days Active RESULTS No Results PROCEDURES No Known procedures IMMUNIZATIONS No Known Immunizations
--- OUTSIDE RECORDS SUMMARY | 2018-02-03 13:26 | XMS REPORT ---
Author Author [facility] Address [address] [place] [address] Care Team Providers Care Chemistry Teacher Name Role Phone TEE CALLE Unavailable PROBLEMS Type Condition ICD9-CM Code LRU26-QT Code Onset Dates Condition Status SNOMED Code Problem Acne L70.9 Active 24502910 Problem Sciatica of right side M54.31 Active 25517257 Problem Panic disorder [episodic paroxysmal anxiety] without agoraphobia F41.0 Active 90027913 Problem Attention-deficit hyperactivity disorder, predominantly inattentive type F90.0 Active 42719481 Problem Current nonadherence to medical treatment Z91.19 Active 6429257 Problem Acquired hypothyroidism E03.9 Active 381142646 Problem Essential hypertension I10 Active 10348054 Problem Primary insomnia F51.01 Active 1273615 Problem Migraine with aura and without status migrainosus, not intractable G43.109 Active 3860448 Problem Abnormal liver function K76.89 Active 34593680 Problem Obesity E66.9 Active 521470264 Problem Bipolar 2 disorder F31.81 Active 11256029 Problem Postoperative hypothyroidism E89.0 Active 89029291 Problem Generalized anxiety disorder F41.1 Active 44496987 ALLERGIES No Information ENCOUNTERS Encounter Location Date Diagnosis [facility] [id number] [address] Dec, [facility] [address] [address] Nov, Normal physical exam Z00.00 and Enlarged lymph node R59.9 [facility] [address] [place] [address] 73619- 2193 Nov, Enlarged lymph node R59.9 ; Abnormal liver function K76.89 and Hypothyroid E03.9 [facility] [address] [place] [address] 12723- 7397 Oct, Bipolar 2 disorder F31.81 [facility] [address] [place] [address] 67713- 3152 Oct, Sciatica of right side M54.31 and Essential hypertension I10 [facility] [id number] [place] [address] 45884- 9851 Oct, [facility] [id number] [place] [address] 09352- 9560 Aug, Hypothyroid E03.9 [facility] [id number] [place] [address] 81621- 8200 Aug, [facility] [id number] [place] [address] 08156- 6636 Aug, Bipolar 2 disorder F31.81 [facility] [id number] [place] [address] 50138- 7206 Aug, Abnormal liver function K76.89 [facility] [id number] [place] [address] 47245- 5271 Jul, Bipolar 2 disorder F31.81 [facility] [id number] [place] [address] 52949 -6950 Jul, [facility] [id number] [place] [address] 79917- 3141 Jul, Bipolar 2 disorder F31.81 ; Generalized anxiety disorder F41.1 ; Attention-deficit hyperactivity disorder, predominantly inattentive type F90.0 and Current nonadherence to medical treatment Z91.19 [facility] [address] [place] [address] 56510 -2624 14 Jul, 2017 Essential hypertension I10 ; Other viral agents as the cause of diseases classified elsewhere B97.89 ; Acute upper respiratory infection, unspecified J06.9 and BMI 40.0-44.9, adult Z68.41 [facility] [id number] [place] [address] 61014- 0906 Jul, [facility] [address] [place] [address] 00813- 1832 Jul, [facility] [id number] [place] [address] 21405- 2673 Jun, [facility] [id number] [place] [address] 62810- 4823 Jun, [facility] [address] 17820- 1440 Jun, Dysuria R30.0 ; Urinary tract infection, site not specified N39.0 ; Hematuria, unspecified R31.9 ; Sciatica of right side M54.31 ; Migraine with aura and without status migrainosus, not intractable G43.109 ; Primary insomnia F51.01 ; Essential hypertension I10 and Acquired hypothyroidism E03.9 [facility] [id number] [place] [address] 43389- 4353 Jun, Bipolar 2 disorder F31.81 [facility] [id number] [place] [address] 24881- 4505 Jun, Bipolar 2 disorder F31.81 [facility] [id number] [place] [address] 87058- 6215 May, Sore throat J02.9 ; Acute serous otitis media of left ear, recurrence not specified H65.02 and Hypertension I10 [facility] [id number] [place] [address] 40799- 1756 May, Bipolar 2 disorder F31.81 [facility] [address] [place] [address] 04904- 2271 Apr, [facility] [id number] [place] [address] 18257- 1653 Apr, Bipolar 2 disorder F31.81 [facility] [id number] [place] [address] 86204- 6286 Mar, [facility] [id number] [place] [address] 00685- 5163 Feb, Bipolar 2 disorder F31.81 ; Attention deficit disorder F90.0 ; COLLEEN (generalized anxiety disorder) F41.1 and Panic disorder [episodic paroxysmal anxiety] without agoraphobia F41.0 [facility] [address] [address] 4[address] January, Bipolar 2 disorder F31.81 [facility] [id number] [place] [address] 54665- 1687 Dec, [facility] [id number] [place] [address] 70098- 0856 Dec, [facility] [id number] [place] [address] 43231- 1653 Dec, [facility] [id number] [place] [address] 21009- 2356 Dec, Generalized anxiety disorder F41.1 ; Bipolar 2 disorder F31.81 and Panic disorder [episodic paroxysmal anxiety] without agoraphobia F41.0 [facility] [id number] [address] 0115 Dec, [facility] [id number] [place] [address] 71414- 0963 Dec, [facility] [address] [place] [address] 30798- 6414 Nov, [facility] [id number] [place] [address] 75334- 2779 Nov, [facility] [address] [place] [address] 07509- 1818 Nov, [facility] [id number] [place] [address] 34993- 0861 Oct, [facility] [id number] [place] [address] 34552- 1206 Oct, [facility] [id number] [place] [address] 84654- 4718 Oct, [facility] [address] [address]- 2686 Oct, [facility] [address] [address] Oct, [facility] [id number] [address] 1720 Sep, Bipolar 2 disorder F31.81 ; COLLEEN (generalized anxiety disorder) F41.1 ; Attention deficit disorder F90.0 and Panic disorder [episodic paroxysmal anxiety] without agoraphobia F41.0 [facility] [id number] [place] [address] 29781- 1767 Sep, [facility] [id number] [address]- 7438 Sep, [facility] [id number] [place] [address] 44973- 6986 Sep, [facility] [address] [address] Aug, [facility] [id number] [place] 7943 Aug, [facility] [address] [address]126 Aug, [facility] [address] [address] Aug, [facility] [address] [address]- 0069 Jul, [facility] [id number] [address]- 6285 Jul, [facility] [address] [address]- 5026 Jul, [facility] [address] [address]- 3217 Jun, [facility] [id number] [place] [address] 58395- 3547 Jun, Bipolar 2 disorder F31.81 ; Attention deficit disorder F90.0 ; COLLEEN (generalized anxiety disorder) F41.1 and Panic disorder [episodic paroxysmal anxiety] without agoraphobia F41.0 [facility] [id number] [place] [address] 48081- 2056 Jun, [facility] [address] 53957- 3634 Jun, [facility] [address] 99736- 2867 Jun, Right foot pain M79.671 and Nausea and vomiting in adult R11.2 [facility] [address] 54747- 5403 May, [facility] [address] 42429- 4765 May, Other sinusitis, unspecified chronicity J32.9 ; Environmental allergies Z91.09 ; Other chronic pain G89.29 and Sacrococcygeal disorders, not elsewhere classified M53.3 [facility] [id number] [place] [address] 04325 -8236 May, Acute non-recurrent pansinusitis J01.40 and Gastroenteritis K52.9 [facility] [id number] [place] [address] 03821- 8577 May, [facility] [id number] [place] [address] 48639- 8809 May, [facility] [address] 01691- 1635 Apr, Bronchitis J40 [facility] [id number] [place] [address] 91265- 9389 Apr, [facility] [address] 14706- 2877 Apr, [facility] [address] [address]- 4855 Apr, [facility] [address] [place] [address] 25543 -8417 Apr, Nausea and vomiting in adult R11.2 [facility] [id number] [place] [address] 90941- 9650 Apr, Nausea and vomiting in adult R11.2 [facility] [address] [place] [address] 38203- 9817 Apr, Bipolar 2 disorder F31.81 ; Generalized anxiety disorder F41.1 ; Panic disorder [episodic paroxysmal anxiety] without agoraphobia F41.0 ; Attention deficit disorder F90.0 and COLLEEN (generalized anxiety disorder) F41.1 [facility] [id number] [place] [address] 07920- 4594 Apr, [facility] [address] [place] [address] 16874- 3867 Mar, [facility] [id number] [place] [address] 64835- 4759 Mar, [facility] [address] [place] [address] 18960- 5247 Mar, [facility] [address] [place] [address] 12822- 8854 Mar, Bipolar 2 disorder F31.81 ; Attention deficit disorder F90.0 ; COLLEEN (generalized anxiety disorder) F41.1 and Panic disorder [episodic paroxysmal anxiety] without agoraphobia F41.0 [facility] [address] [place] [address] 25211- 3046 Mar, [facility] [address] [place] [address] 39528- 6611 Feb, Bipolar 2 disorder F31.81 ; Generalized anxiety disorder F41.1 and Attention deficit disorder F90.0 [facility] [id number] [place] [address] 89170- 5801 Feb, Generalized anxiety disorder F41.1 [facility] [id number] [place] [address] 78080- 8600 Feb, Generalized anxiety disorder F41.1 ; Attention deficit disorder F90.0 and Bipolar 2 disorder F31.81 [facility] [id number] [place] [address] 64779- 1850 Feb, Bipolar 2 disorder F31.81 ; Generalized anxiety disorder F41.1 ; Attention deficit disorder F90.0 and Insomnia, unspecified type G47.00 [facility] [id number] [place] [address] 06433- 3158 Feb, Excessive sweating R61 and Breast lump in upper outer quadrant N63 [facility] [id number] [place] [address] 22133 -1173 January, Low back pain M54.5 ; Other chronic pain G89.29 and Urinary tract infection, site unspecified N39.0 [facility] [id number] [place] [address] 74250- 8979 January, Bipolar II disorder F31.81 [facility] [id number] [place] [address] 32148- 1420 January, [facility] [id number] [place] [address] 52648- 4855 January, Insomnia, unspecified type G47.00 and Grief F43.20 [facility] [id number] [place] [address] 03781- 5543 January, [facility] [id number] [place] [address] 22692- 5101 Dec, [facility] [id number] [place] [address] 38504- 2563 Dec, [facility] [id number] [place] [address] 78550- 1922 Dec, Bipolar 2 disorder F31.81 ; Generalized anxiety disorder F41.1 and Attention deficit disorder F90.0 [facility] [id number] [place] [address] 01413- 6445 Dec, Sinusitis J32.9 [facility] [id number] [place] [address] 04270- 3278 14 Dec, 2015 Sinusitis J32.9 and Hypothyroid E03.9 [facility] [address] 74079- 0257 Dec, [facility] [address] 88569 -1441 Dec, Cough R05 and Allergic rhinitis J30.9 [facility] [address] 67250- 1495 Nov, Hypertension I10 ; Obesity E66.9 and Acne L70.9 [facility] [id number] [place] [address] 52221- 1768 Nov, [facility] [address] 18547- 6108 Oct, [facility] [id number] [place] [address] 09235- 6311 Oct, [facility] [address] 24659- 5591 Oct, [facility] [id number] [place] [address] 35250- 2530 Oct, [facility] [address] 48518- 7962 Sep, Lymphadenitis I88.9 ; Essential hypertension I10 and Acne, unspecified acne type L70.9 [facility] [id number] [place] [address] 03366- 8692 Sep, [facility] [address] [address]- 2238 Sep, [facility] [id number] [place] [address] 38318- 1249 Sep, [facility] [id number] [place] [address] 57532- 3062 Sep, Acquired hypothyroidism E03.9 [facility] [id number] [place] [address] 49664- 7719 Aug, Acquired hypothyroidism E03.9 [facility] [id number] [place] [address] 88377- 7534 Aug, Furuncle L02.92 [facility] [id number] [place] [address] 63250- 0093 Aug, [facility] [id number] [place] [address] 95256- 6504 Aug, Bipolar 2 disorder F31.81 ; Generalized anxiety disorder F41.1 ; Attention deficit disorder F90.0 and Obesity E66.9 [facility] [id number] [place] [address] 36955- 7305 Aug, [facility] [id number] [place] [address] 99840- 8356 Aug, [facility] [id number] [place] [address] 10110- 8245 Aug, Acquired hypothyroidism E03.9 [facility] [id number] [place] [address] 36321- 2200 Jul, Acquired hypothyroidism E03.9 ; Upper respiratory tract infection, unspecified type J06.9 and Nonintractable migraine, unspecified migraine type G43.009 [facility] [address] [address]- 4129 14 Jun, 2015 Acute pharyngitis, unspecified J02.9 [facility] [id number] [place] [address] 37991- 8311 May, Bipolar II disorder 296.89 ; Attention deficit disorder of childhood without mention of hyperactivity 314.00 ; Generalized anxiety disorder 300.02 and Morbid obesity with BMI of 45.0-49.9, adult 278.01 [facility] [address] [address]- 5656 May, Sinusitis 473.9 [facility] [id number] [place] [address] 53930- 0926 Apr, [facility] [id number] [place] [address] 11727- 2056 Mar, [facility] [id number] [place] [address] 09513- 7316 Mar, Bipolar II disorder 296.89 ; Generalized anxiety disorder 300.02 ; Obesity, unspecified 278.00 and Attention deficit disorder 314.00 [facility] [id number] [place] [address] 09041- 3706 Feb, [facility] [id number] [place] [address] 57523- 6656 January, [facility] [id number] [place] [address] 74626- 7786 January, [facility] [id number] [address]- 2066 January, [facility] [id number] [place] [address] 84601- 2546 January, [facility] [id number] [place] [address] 06592- 7586 Dec, [facility] [id number] [place] [address] 04247- 0286 Dec, [facility] [id number] [address]- 2546 30 Nov, 2014 [facility] [id number] [place] [address] 40272- 4756 Nov, [facility] [place] [facility] [address] [id number] [place] [address]- 1813 18 Nov, 2014 [facility] [place] [facility] [address] [id number] [place] [address]- 2618 11 Nov, 2014 [facility] [place] [facility] [address] [id number] [place] [address]- 7312 Nov, [facility] [place] [facility] [address] [id number] [place] [address]- 5859 Nov, [facility] [place] [facility] [address] [id number] [place] [address]- 1514 11 Nov, 2014 [facility] [place] [facility] [address] [id number] [place] [address]- 8494 Nov, [facility] [place] [facility] [address] [id number] [place] [address]- 1851 Nov, [facility] [place] [facility] [address] [id number] [place] [address]- 0449 Nov, [facility] [place] [facility] [address] [id number] [place] [address]- 4085 10 Nov, 2014 [facility] [place] [facility] [address] [id number] [place] [address]- 7885 Nov, [facility] [place] [facility] [address] [id number] [place] [address]- 8218 Nov, [facility] [place] [facility] [address] [id number] [place] [address]- 1314 Nov, [facility] [place] [facility] [address] [id number] [place] [address]- 4211 Oct, [facility] [place] [facility] [address] [id number] [place] [address]- 5506 Oct, [facility] [place] [facility] [address] [id number] [place] [address]- 7959 Oct, [facility] [place] [facility] [address] [id number] [place] [address]- 4221 Oct, 2014 [facility] [place] [facility] [address] [id number] [place] [address]- 0976 Oct, 2014 [facility] [place] [facility] [address] [id number] [place] [address]- 1696 Oct, 2014 [facility] [place] [facility] [address] [id number] [place] [address]- 6306 Oct, 2014 [facility] [place] [facility] [address] [id number] [place] [address]- 4006 Oct, 2014 [facility] [place] [facility] [address] [id number] [place] [address]- 5434 Oct, 2014 [facility] [place] [facility] [address] [id number] [place] [address]- 0975 Oct, 2014 [facility] [place] [facility] [address] [id number] [place] [address]- 1700 Oct, [facility] [place] [facility] [address] [id number] [place] [address]- 9102 Oct, [facility] [place] [facility] [address] [id number] [place] [address]- 3625 Sep, [facility] [place] [facility] [address] [facility] [id number] [place] [address] Sep, [facility] [place] [facility] [address] [id number] [place] [address] Sep, [facility] [place] [facility] [address] [id number] [place] [address] Sep, [facility] [place] [facility] [address] [id number] [place] [address] Sep, [facility] [place] [facility] [address] [id number] [place] [address] Sep, [facility] [place] [facility] [address] [id number] [place] [address] Sep, [facility] [place] [facility] [address] [id number] [place] [address] Sep, [facility] [place] [facility] [address] [id number] [place] [address] Aug, [facility] [place] [facility] [address] [id number] [place] [address] Aug, [facility] [place] [facility] [address] [id number] [place] [address] Aug, [facility] [place] [facility] [address] [id number] [place] [address] Aug, [facility] [place] [facility] [address] [id number] [place] [address] Aug, [facility] [place] [facility] [address] [id number] [place] [address] Aug, [facility] [place] [facility] [address] [id number] [place] [address] Aug, [facility] [place] [facility] [address] [id number] [place] [address] Aug, [facility] [place] [facility] [address] [id number] [place] [address] Aug, [facility] [place] [facility] [address] [id number] [place] [address] Aug, [facility] [place] [facility] [address] [id number] [place] [address] Aug, [facility] [place] [facility] [address] [id number] [place] [address] Aug, [facility] [place] [facility] [address] [id number] [place] Aug, [facility] [place] [facility] [address] [id number] [place] [address] Aug, [facility] [place] [facility] [address] [id number] [place] [address] 13 Jul, 2014 [facility] [place] [facility] [address] [id number] [place] [address] Jul, [facility] [place] [facility] [address] [id number] [place] [address] Jul, [facility] [place] [facility] [address] [id number] [place] [address] Jul, [facility] [place] [facility] [address] [id number] [place] [address] Jul, [facility] [place] [facility] [address] [id number] [place] [address] Jul, [facility] [place] [facility] [address] [id number] [place] [address] Jul, [facility] [place] [facility] [address] [id number] [place] [address] 115[address] Jul, [facility] [place] [facility] [address] [id number] [place] [address] 09[address] Jul, [facility] [place] [facility] [address] [id number] [place] [address] 2886 Jul, [facility] [place] [facility] [address] [facility] [id number] [place] [address] 275[address] Jul, [facility] [place] [facility] [address] [id number] [place] [address] 5266 03 Jul, 2014 [facility] [place] [facility] [address] [id number] [place] [address] 16 Jun, 2014 [facility] [place] [facility] [address] [id number] [place] [address] 2527 16 Jun, 2014 [facility] [place] [facility] [address] [id number] [place] [address] 8797 15 Jun, 2014 [facility] [place] [facility] [address] [id number] [place] [address] 47[address] 14 Jun, 2014 [facility] [place] [facility] [address] [id number] [place] [address] 4033 14 Jun, 2014 [facility] [place] [facility] [address] [id number] [place] [address] 7007 14 Jun, 2014 [facility] [place] [facility] [address] [id number] [place] [address] 1610 14 Jun, 2014 [facility] [place] [facility] [address] [id number] [place] [address] 9426 13 Jun, 2014 [facility] [place] [facility] [address] [id number] [place] [address]- 7804 10 Jun, 2014 [facility] [place] [facility] [address] [id number] [place] [address] 2815 10 Jun, 2014 [facility] [place] [facility] [address] [id number] [place] [address]- 6391 09 Jun, 2014 [facility] [place] [facility] [address] [id number] [place] [address]- 8093 09 Jun, 2014 [facility] [place] [facility] [address] [id number] [place] [address]- 2710 06 Jun, 2014 [facility] [place] [facility] [address] [id number] [place] [address] 4134 06 Jun, 2014 [facility] [place] [facility] [address] [id number] [place] [address]- 1384 16 May, 2013 [facility] [place] [facility] [address] [id number] [place] [address]- 8526 15 May, 2013 [facility] [place] [facility] [address] [id number] [place] [address]- 4058 15 May, 2014 [facility] [place] [facility] [address] [id number] [place] [address]- 7520 15 May, 2013 [facility] [place] [facility] [address] [id number] [place] [address]- 7476 15 May, 2013 [facility] [place] [facility] [address] [id number] [place] [address] 0286 15 May, 2013 [facility] [place] [facility] [address] [id number] [place] [address] 2623 15 May, 2013 [facility] [place] [facility] [address] [id number] [place] [address]- 4953 12 May, 2013 [facility] [place] [facility] [address] [id number] [place] [address]- 3450 12 May, 2013 [facility] [place] [facility] [address] [id number] [place] [address]- 3105 10 May, 2013 [facility] [place] [facility] [address] [id number] [place] [address]- 4215 10 May, 2013 [facility] [place] [facility] [address] [id number] [place] [address]- 5984 02 May, 2013 [facility] [place] [facility] [address] [id number] [place] [address]- 4429 May, 2013 [facility] [place] [facility] [address] [id number] [place] [address]- 7632 May, 2013 [facility] [place] [facility] [address] [id number] [place] [address]- 9868 May, 2013 [facility] [place] [facility] [address] [id number] [place] [address] 4861 Apr, [facility] [place] [facility] [address] [id number] [place] [address] 6343 Apr, [facility] [place] [facility] [address] [id number] [place] [address] 4421 Apr, [facility] [place] [facility] [address] [id number] [place] [address] 9652 Apr, [facility] [place] [facility] [address] [id number] [place] [address]- 3914 Apr, [facility] [place] [facility] [address] [id number] [place] [address] 4500 Apr, [facility] [place] [facility] [address] [id number] [place] [address] 4489 Apr, [facility] [place] [facility] [address] [id number] [place] [address] 9554 Apr, [facility] [place] [facility] [address] [id number] [place] [address] 4353 Apr, [facility] [place] [facility] [address] [id number] [place] [address] 3579 Mar, [facility] [place] [facility] [address] [id number] [place] [address] 8661 Mar, [facility] [place] [facility] [address] [id number] [place] [address] 6635 Mar, [facility] [place] [facility] [address] [id number] [place] [address]- 5934 Mar, [facility] [place] [facility] [address] [id number] [place] [address] 5307 Mar, [facility] [place] [facility] [address] [id number] [place] [address]- 2091 Mar, [facility] [place] [facility] [address] [id number] [place] [address] 3785 Mar, [facility] [place] [facility] [address] [id number] [place] [address] 8927 Mar, [facility] [place] [facility] [address] [id number] [place] [address]- 5836 Mar, [facility] [place] [facility] [address] [id number] [place] [address] 5749 Mar, [facility] [place] [facility] [address] [id number] [place] [address]- 7623 Mar, [facility] [place] [facility] [address] [id number] [place] [address]- 0293 Mar, [facility] [place] [facility] [address] [id number] [place] [address] 1275 Mar, [facility] [place] [facility] [address] [id number] [place] [address]- 7622 Mar, 2013 [facility] [place] [facility] [address] [id number] [place] [address] 3912 Mar, [facility] [place] [facility] [address] [id number] [place] [address] 1784 Mar, [facility] [place] [facility] [address] [id number] [place] [address] 0886 Mar, [facility] [place] [facility] [address] [id number] [place] [address]- 3822 Mar, [facility] [place] [facility] [address] [id number] [place] [address] 8319 Feb, [facility] [place] [facility] [address] [id number] [place] [address]- 2351 Feb, [facility] [place] [facility] [address] [id number] [place] [address]- 1181 Feb, [facility] [place] [facility] [address] [id number] [place] [address] 5063 Feb, [facility] [place] [facility] [address] [id number] [place] [address]- 1752 Feb, [facility] [place] [facility] [address] [id number] [place] [address]- 7079 Feb, [facility] [place] [facility] [address] [id number] [place] [address]- 8123 Feb, [facility] [place] [facility] [address] [id number] [place] [address]- 4039 Feb, [facility] [place] [facility] [address] [id number] [place] [address]- 2056 Feb, [facility] [place] [facility] [address] [id number] [place] [address]- 2456 Feb, [facility] [place] [facility] [address] [id number] [place] [address]- 5295 January, [facility] [address] [id number] [place] [address]- 2251 January, [facility] [place] [facility] [address] [id number] [place] [address] January, [facility] [place] [facility] [address] [id number] [place] [address]- 9436 January, [facility] [place] [facility] [address] [id number] [place] [address]- 5721 January, [facility] [place] [facility] [address] [id number] [place] [address]- 6579 January, [facility] [place] [facility] [address] [id number] [place] [address]- 3955 January, [facility] [address] [id number] [place] [address]- 2793 January, [facility] [place] [facility] [address] [id number] [place] [address]- 2340 January, [facility] [place] [facility] [address] [id number] [place] [address]- 5882 January, [facility] [place] [facility] [address] [id number] [place] [address]- 5946 January, [facility] [place] [facility] [address] [id number] [place] [address] 1967 January, [facility] [place] [facility] [address] [id number] [place] [address]- 1390 January, [facility] [place] [facility] [address] [id number] [place] [address]- 8688 January, [facility] [place] [facility] [address] [id number] [place] [address]- 9390 January, [facility] [place] [facility] [address] [id number] [place] [address]- 3468 Dec, [facility] [place] [facility] [address] [id number] [place] [address]- 7801 10 Dec, 2013 [facility] [place] [facility] [address] [id number] [place] [address]- 7389 Dec, [facility] [place] [facility] [address] [id number] [place] [address]- 2816 Dec, [facility] [place] [facility] [address] [id number] [place] [address]- 7664 Dec, [facility] [place] [facility] [address] [id number] [place] [address]- 6477 Dec, [facility] [place] [facility] [address] [id number] [place] [address]- 7042 Nov, [facility] [place] [facility] [address] [id number] [place] [address]- 1494 Nov, [facility] [place] [facility] [address] [id number] [place] [address]- 7912 Nov, [facility] [place] [facility] [address] [id number] [place] [address]- 4848 Nov, [facility] [place] [facility] [address] [id number] [place] [address]- 2435 Nov, [facility] [place] [facility] [address] [id number] [place] [address]- 1092 Oct, [facility] [place] [facility] [address] [id number] [place] [address]- 5054 Oct, [facility] [place] [facility] [address] [id number] [place] [address]- 7018 Oct, [facility] [place] [facility] [address] [id number] [place] [address]- 6587 Oct, [facility] [place] [facility] [address] [id number] [place] [address]- 0974 10 Oct, 2013 [facility] [place] [facility] [address] [id number] [place] [address]- 7881 Oct, [facility] [address] [id number] [place] [address]- 0004 06 Oct, 2013 [facility] [place] [facility] [address] [id number] [place] [address] Oct, [facility] [place] [facility] [address] [id number] [place] [address]- 1036 Oct, [facility] [place] [facility] [address] [id number] [place] [address]- 2554 Oct, [facility] [place] [facility] [address] [id number] [place] [address]- 1359 Oct, [facility] [place] [facility] [address] [id number] [place] [address]- 9710 Sep, [facility] [address] [id number] [place] [address]- 0218 Sep, [facility] [place] [facility] [address] [id number] [place] [address]- 6928 Sep, [facility] [address] [id number] [place] [address]- 4562 Sep, [facility] [place] [facility] [address] [facility] [id number] [place] [address]- 1321 Aug, [facility] [place] [facility] [address] [id number] [place] [address]- 5886 Aug, [facility] [place] [facility] [address] [id number] [place] [address]- 7290 Jul, [facility] [place] [facility] [address] [id number] [place] [address]- 5219 Jul, [facility] [place] [facility] [address] [id number] [place] [address]- 7324 Jul, [facility] [place] [facility] [address] [id number] [place] [address]- 8498 Jul, [facility] [place] [facility] [address] [id number] [place] [address]- 4279 Jul, [facility] [place] [facility] [address] [id number] [place] [address]- 3329 Jun, [facility] [place] [facility] [address] [id number] [place] [address]- 9056 Jun, [facility] [place] [facility] [address] [id number] [place] [address]- 8495 May, [facility] [place] [facility] [address] [id number] [place] [address]- 3805 Mar, [facility] [place] [facility] [address] [id number] [place] [address]- 8635 Mar, [facility] [place] [facility] [address] [id number] [place] [address]- 1791 Mar, [facility] [place] [facility] [address] [id number] [place] [address]- 0265 Feb, [facility] [place] [facility] [address] [id number] [place] [address]- 9811 January, [facility] [place] [facility] [address] [id number] [place] [address]- 0227 Dec, [facility] [place] [facility] [address] [id number] [place] [address]- 3106 Nov, [facility] [place] [facility] [address] [id number] [place] [address]- 4686 Nov, [facility] [place] [facility] [address] [id number] [place] [address]- 2027 Nov, [facility] [place] [facility] [address] [id number] [place] [address]- 2495 Oct, [facility] [place] [facility] [address] [id number] [place] [address]- 9386 Oct, [facility] [place] [facility] [address] [id number] [place] [address]- 2696 Oct, [facility] [address] [facility] [id number] [place] [address]- 2546 Oct, [facility] [address] [facility] [id number] [place] [address]- 2546 Sep, IMMUNIZATIONS No Known Immunizations SOCIAL HISTORY Never Assessed REASON FOR VISIT Refill request PLAN OF CARE VITAL SIGNS MEDICATIONS Medication Instructions Dosage Frequency Start Date End Date Duration Status Rozerem 8 MG Orally Once a day for sleep 1 tablet at bedtime as needed Feb, 90 days Active Elavil 25 MG Orally Once at bedtime for sleep 3 tablet Dec, 30 days Active RESULTS No Results [...]
--- OUTSIDE RECORDS SUMMARY | 2018-02-03 13:27 | XMS REPORT ---
Author Author LUC TEE [facility] [address] Address [address] [place] [address] Care Team Providers Care Director [employer] Name Role Phone TEE CALLE Unavailable PROBLEMS Type Condition ICD9-CM Code [id number] Code Onset Dates Condition Status SNOMED Code Problem Acne L70.9 Active 07438774 Problem Sciatica of right side M54.31 Active 10685367 Problem Panic disorder [episodic paroxysmal anxiety] without agoraphobia F41.0 Active 88160442 Problem Attention-deficit hyperactivity disorder, predominantly inattentive type F90.0 Active 44220544 Problem Current nonadherence to medical treatment Z91.19 Active 4802204 Problem Acquired hypothyroidism E03.9 Active 535366904 Problem Essential hypertension I10 Active 59514259 Problem Primary insomnia F51.01 Active 6093589 Problem Migraine with aura and without status migrainosus, not intractable G43.109 Active 2500361 Problem Abnormal liver function K76.89 Active 76661810 Problem Obesity E66.9 Active 817374344 Problem Bipolar 2 disorder F31.81 Active 64601116 Problem Postoperative hypothyroidism E89.0 Active 27157746 Problem Generalized anxiety disorder F41.1 Active 59263716 ALLERGIES No Information ENCOUNTERS Encounter Location Date Diagnosis [facility] [id number] [address] Dec, [facility] [address], [place] [address] Nov, Normal physical exam Z00.00 and Enlarged lymph node R59.9 [facility] [id number] [place] [address] 96202- 8221 Nov, Enlarged lymph node R59.9 ; Abnormal liver function K76.89 and Hypothyroid E03.9 [facility] [id number] [place] [address] 74919- 3449 Oct, Bipolar 2 disorder F31.81 [facility] [id number] [place] [address] 98118- 6673 Oct, Sciatica of right side M54.31 and Essential hypertension I10 [facility] [id number] [place] [address] 91354- 7464 Oct, [facility] [id number] [place] [address] 30065- 2491 Aug, Hypothyroid E03.9 [facility] [id number] [place] [address] 44425- 1185 Aug, [facility] [id number] [place] [address] 02685- 9078 Aug, Bipolar 2 disorder F31.81 [facility] [id number] [place] [address] 57587- 9831 Aug, Abnormal liver function K76.89 [facility] [id number] [place] [address] 19109- 8696 Jul, Bipolar 2 disorder F31.81 [facility] [id number] [place] [address] 71110 -0282 Jul, [facility] [id number] [place] [address] 13631- 1099 Jul, Bipolar 2 disorder F31.81 ; Generalized anxiety disorder F41.1 ; Attention-deficit hyperactivity disorder, predominantly inattentive type F90.0 and Current nonadherence to medical treatment Z91.19 [facility] [id number] [place] [address] 42315 -8033 14 Jul, 2017 Essential hypertension I10 ; Other viral agents as the cause of diseases classified elsewhere B97.89 ; Acute upper respiratory infection, unspecified J06.9 and BMI 40.0-44.9, adult Z68.41 [facility] [id number] [place] [address] 59871- 3280 Jul, [facility] [id number] [place] [address] 66840- 7967 Jul, [facility] [id number] [place] [address] 49042- 7406 Jun, [facility] [id number] [place] [address] 98698- 6900 Jun, [facility] [address] 59639- 3281 Jun, Dysuria R30.0 ; Urinary tract infection, site not specified N39.0 ; Hematuria, unspecified R31.9 ; Sciatica of right side M54.31 ; Migraine with aura and without status migrainosus, not intractable G43.109 ; Primary insomnia F51.01 ; Essential hypertension I10 and Acquired hypothyroidism E03.9 [facility] [id number] [place] [address] 19968- 8326 Jun, Bipolar 2 disorder F31.81 [facility] [id number] [place] [address] 65096- 0737 Jun, Bipolar 2 disorder F31.81 [facility] [id number] [place] [address] 86182- 9233 May, Sore throat J02.9 ; Acute serous otitis media of left ear, recurrence not specified H65.02 and Hypertension I10 [facility] [id number] [place] [address] 13404- 4695 May, Bipolar 2 disorder F31.81 [facility] [id number] [place] [address] 31852- 3632 Apr, [facility] [id number] [place] [address] 32161- 4709 Apr, Bipolar 2 disorder F31.81 [facility] [id number] [place] [address] 19115- 6063 Mar, [facility] [id number] [place] [address] 35368- 8527 Feb, Bipolar 2 disorder F31.81 ; Attention deficit disorder F90.0 ; COLLEEN (generalized anxiety disorder) F41.1 and Panic disorder [episodic paroxysmal anxiety] without agoraphobia F41.0 [facility] [address] [address]- 2756 January, Bipolar 2 disorder F31.81 [facility] [id number] [place] [address] 88426- 3644 Dec, [facility] [id number] [place] [address] 35766- 2907 Dec, [facility] [id number] [place] [address] 00642- 1588 Dec, [facility] [id number] [place] [address] 06936- 3597 Dec, Generalized anxiety disorder F41.1 ; Bipolar 2 disorder F31.81 and Panic disorder [episodic paroxysmal anxiety] without agoraphobia F41.0 [facility] [id number] [address]- 7889 Dec, [facility] [id number] [place] [address] 79418- 6836 Dec, [facility] [id number] [place] [address] 64615- 5706 Nov, [facility] [id number] [place] [address] 37807- 4028 Nov, [facility] [id number] [place] [address] 41682- 2252 Nov, [facility] [id number] [place] [address] 40705- 4308 Oct, [facility] [id number] [place] [address] 41186- 9092 Oct, [facility] [id number] [place] [address] 75547- 5387 Oct, [facility] [address], [place] [address]- 7036 Oct, [facility] [place] [address] [address]- 4126 Oct, [facility] [place] [id number] [address]- 7127 Sep, Bipolar 2 disorder F31.81 ; COLLEEN (generalized anxiety disorder) F41.1 ; Attention deficit disorder F90.0 and Panic disorder [episodic paroxysmal anxiety] without agoraphobia F41.0 [facility] [id number] [place] [address] 78636- 4577 Sep, [facility] [place] [id number] [address]- 6428 Sep, [facility] [place] [id number] [place] [address] 90203- 9241 Sep, [facility] [address] Aug, [facility] [id number] 0025 Aug, [facility] [address] 8918 Aug, [facility] [address] 6584 Aug, [facility] [address], [place] [address]- 6585 Jul, [facility] [id number] [address]- 0082 Jul, [facility] [address], [place] [address]- 9546 Jul, [facility] [address], [place] [address]- 2445 Jun, [facility] [id number] [place] [address] 89399- 6380 Jun, Bipolar 2 disorder F31.81 ; Attention deficit disorder F90.0 ; COLLEEN (generalized anxiety disorder) F41.1 and Panic disorder [episodic paroxysmal anxiety] without agoraphobia F41.0 [facility] [id number] [place] [address] 17210- 2520 Jun, [facility] [address] 50210- 5979 Jun, [facility] [address] 42877- 0310 Jun, Right foot pain M79.671 and Nausea and vomiting in adult R11.2 [facility] [address] 17593- 5614 May, [facility] [address] 18109- 4770 May, Other sinusitis, unspecified chronicity J32.9 ; Environmental allergies Z91.09 ; Other chronic pain G89.29 and Sacrococcygeal disorders, not elsewhere classified M53.3 [facility] [id number] [place] [address] 44002 -9760 May, Acute non-recurrent pansinusitis J01.40 and Gastroenteritis K52.9 [facility] [id number] [place] [address] 03342- 8970 May, [facility] [id number] [place] [address] 59979- 4806 May, [facility] [address] 27099- 7159 Apr, Bronchitis J40 [facility] [id number] [place] [address] 35593- 4326 Apr, [facility] [address] 95921- 0311 Apr, [facility] [address], [place] [address]- 9418 Apr, [facility] [id number] [place] [address] 96725 -7072 Apr, Nausea and vomiting in adult R11.2 [facility] [id number] [place] [address] 55809- 9330 Apr, Nausea and vomiting in adult R11.2 [facility] [id number] [place] [address] 15886- 1615 Apr, Bipolar 2 disorder F31.81 ; Generalized anxiety disorder F41.1 ; Panic disorder [episodic paroxysmal anxiety] without agoraphobia F41.0 ; Attention deficit disorder F90.0 and COLLEEN (generalized anxiety disorder) F41.1 [facility] [id number] [place] [address] 06109- 4582 Apr, [facility] [id number] [place] [address] 25124- 4888 Mar, [facility] [id number] [place] [address] 51690- 3748 Mar, [facility] [id number] [place] [address] 94950- 8849 Mar, [facility] [id number] [place] [address] 23538- 1847 Mar, Bipolar 2 disorder F31.81 ; Attention deficit disorder F90.0 ; COLLEEN (generalized anxiety disorder) F41.1 and Panic disorder [episodic paroxysmal anxiety] without agoraphobia F41.0 [facility] [address] [place] [address] 42405- 8265 Mar, [facility] [id number] [place] [address] 85536- 1652 Feb, Bipolar 2 disorder F31.81 ; Generalized anxiety disorder F41.1 and Attention deficit disorder F90.0 [facility] [id number] [place] [address] 90239- 8303 Feb, Generalized anxiety disorder F41.1 [facility] [id number] [place] [address] 65107- 6079 Feb, Generalized anxiety disorder F41.1 ; Attention deficit disorder F90.0 and Bipolar 2 disorder F31.81 [facility] [id number] [place] [address] 77716- 2881 Feb, Bipolar 2 disorder F31.81 ; Generalized anxiety disorder F41.1 ; Attention deficit disorder F90.0 and Insomnia, unspecified type G47.00 [facility] [id number] [place] [address] 65435- 8152 Feb, Excessive sweating R61 and Breast lump in upper outer quadrant N63 [facility] [id number] [place] [address] 13826 -9511 January, Low back pain M54.5 ; Other chronic pain G89.29 and Urinary tract infection, site unspecified N39.0 [facility] [id number] [place] [address] 65351- 8118 January, Bipolar II disorder F31.81 [facility] [id number] [place] [address] 64290- 3249 January, [facility] [id number] [place] [address] 69199- 4278 January, Insomnia, unspecified type G47.00 and Grief F43.20 [facility] [id number] [place] [address] 82399- 9402 January, [facility] [id number] [place] [address] 25506- 4641 Dec, [facility] [id number] [place] [address] 77902- 4159 Dec, [facility] [id number] [place] [address] 52831- 9079 Dec, Bipolar 2 disorder F31.81 ; Generalized anxiety disorder F41.1 and Attention deficit disorder F90.0 [facility] [id number] [place] [address] 71310- 8112 Dec, Sinusitis J32.9 [facility] [id number] [place] [address] 59565- 0096 14 Dec, 2015 Sinusitis J32.9 and Hypothyroid E03.9 [facility] [address] 48970- 5638 Dec, [facility] [address] 65357 -4772 Dec, Cough R05 and Allergic rhinitis J30.9 [facility] [facility] [address] 45464- 2158 Nov, Hypertension I10 ; Obesity E66.9 and Acne L70.9 [facility] [id number] [place] [address] 67143- 3343 Nov, [facility] [address] 70612- 3972 Oct, [facility] [id number] [place] [address] 35808- 6433 Oct, [facility] [address] 61396- 5939 Oct, [facility] [id number] [place] [address] 46918- 0072 Oct, [facility] [address] 29575- 6888 Sep, Lymphadenitis I88.9 ; Essential hypertension I10 and Acne, unspecified acne type L70.9 [facility] [id number] [place] [address] 16317- 8317 Sep, [facility] [address], [place] [address]- 1470 Sep, [facility] [id number] [place] [address] 07794- 7234 Sep, [facility] [id number] [place] [address] 85714- 4668 Sep, Acquired hypothyroidism E03.9 [facility] [id number] [place] [address] 37694- 0171 Aug, Acquired hypothyroidism E03.9 [facility] [id number] [place] [address] 77195- 6697 Aug, Furuncle L02.92 [facility] [id number] [place] [address] 49468- 7863 Aug, [facility] [id number] [place] [address] 49092- 4155 Aug, Bipolar 2 disorder F31.81 ; Generalized anxiety disorder F41.1 ; Attention deficit disorder F90.0 and Obesity E66.9 [facility] [id number] [place] [address] 74101- 8406 Aug, [facility] [id number] [place] [address] 23907- 1779 Aug, [facility] [id number] [place] [address] 45746- 9787 Aug, Acquired hypothyroidism E03.9 [facility] [id number] [place] [address] 91387- 9427 Jul, Acquired hypothyroidism E03.9 ; Upper respiratory tract infection, unspecified type J06.9 and Nonintractable migraine, unspecified migraine type G43.009 [facility] [address], [place] [address]- 0652 14 Jun, 2015 Acute pharyngitis, unspecified J02.9 [facility] [id number] [place] [address] 50150- 3415 May, Bipolar II disorder 296.89 ; Attention deficit disorder of childhood without mention of hyperactivity 314.00 ; Generalized anxiety disorder 300.02 and Morbid obesity with BMI of 45.0-49.9, adult 278.01 [facility] [address], [place] [address]- 9186 May, Sinusitis 473.9 [facility] [id number] [place] [address] 83692- 3566 Apr, [facility] [id number] [place] [address] 66898- 2256 Mar, [facility] [id number] [place] [address] 80630- 6026 Mar, Bipolar II disorder 296.89 ; Generalized anxiety disorder 300.02 ; Obesity, unspecified 278.00 and Attention deficit disorder 314.00 [facility] [id number] [place] [address] 75742- 5976 Feb, [facility] [id number] [place] [address] 59836- 4586 January, [facility] [id number] [place] [address] 92622- 6346 January, [facility] [id number] [address]- 4926 January, [facility] [id number] [place] [address] 66027- 2546 January, [facility] [id number] [place] [address] 59385- 1636 Dec, [facility] [id number] [place] [address] 82374- 3186 Dec, [facility] [id number] [address]- 2546 30 Nov, 2014 [facility] [id number] [place] [address] 34147- 9396 Nov, [facility] [place] [facility] [address] [id number] [place] [address]- 2193 18 Nov, 2014 [facility] [place] [facility] [address] [id number] [place] [address]- 9706 11 Nov, 2014 [facility] [place] [facility] [address] [id number] [place] [address]- 4200 Nov, [facility] [place] [facility] [address] [id number] [place] [address]- 1186 Nov, [facility] [place] [facility] [address] [id number] [place] [address]- 8491 11 Nov, 2014 [facility] [place] [facility] [address] [id number] [place] [address]- 0983 Nov, [facility] [place] [facility] [address] [id number] [place] [address]- 6294 Nov, [facility] [place] [facility] [address] [id number] [place] [address]- 0099 Nov, [facility] [place] [facility] [address] [id number] [place] [address]- 6719 10 Nov, 2014 [facility] [place] [facility] [address] [id number] [place] [address]- 7158 Nov, [facility] [place] [facility] [address] [id number] [place] [address]- 7169 Nov, [facility] [place] [facility] [address] [id number] [place] [address]- 3513 Nov, [facility] [place] [facility] [address] [id number] [place] [address]- 0010 Oct, [facility] [place] [facility] [address] [id number] [place] [address]- 6221 Oct, [facility] [place] [facility] [address] [id number] [place] [address]- 1673 Oct, [facility] [place] [facility] [address] [id number] [place] [address]- 3658 Oct, 2014 [facility] [place] [facility] [address] [id number] [place] [address]- 0196 Oct, 2014 [facility] [place] [facility] [address] [id number] [place] [address]- 4416 Oct, 2014 [facility] [place] [facility] [address] [id number] [place] [address]- 3266 Oct, 2014 [facility] [place] [facility] [address] [id number] [place] [address] Oct, 2014 [facility] [place] [facility] [address] [id number] [place] [address] Oct, 2014 [facility] [place] [facility] [address] [id number] [place] [address] Oct, 2014 [facility] [place] [facility] [address] [id number] [place] [address] Oct, [facility] [place] [facility] [address] [id number] [place] [address] Oct, [facility] [place] [facility] [address] [id number] [place] [address] Sep, [facility] [place] [facility] [address] [facility] [id number] [place] [address] Sep, [facility] [place] [facility] [address] [id number] [place] [address] Sep, [facility] [place] [facility] [address] [id number] [address] Sep, [facility] [place] [facility] [address] [id number] [place] [address] Sep, [facility] [place] [facility] [address] [id number] [place] [address] Sep, [facility] [place] [facility] [address] [id number] [place] [address] Sep, [facility] [place] [facility] [address] [id number] [place] [address] Sep, [facility] [place] [facility] [address] [id number] [place] [address] Aug, [facility] [place] [facility] [address] [id number] [place] [address] Aug, [facility] [place] [facility] [address] [id number] [place] [address] Aug, [facility] [place] [facility] [address] [id number] [place] [address] Aug, [facility] [place] [facility] [address] [id number] [place] [address] Aug, [facility] [place] [facility] [address] [id number] [place] [address] Aug, [facility] [place] [facility] [address] [id number] [place] [address] Aug, [facility] [place] [facility] [address] [id number] [place] [address] Aug, [facility] [place] [facility] [address] [id number] [place] [address] Aug, [facility] [place] [facility] [address] [id number] [place] [address] Aug, [facility] [place] [facility] [address] [id number] [place] [address] Aug, [facility] [place] [facility] [address] [id number] [place] [address] Aug, [facility] [place] [facility] [address] [id number] [place] [address] Aug, [facility] [place] [facility] [address] [id number] [place] [address] Aug, [facility] [place] [facility] [address] [id number] [place] [address]- [address] 13 Jul, 2014 [facility] [place] [facility] [address] [id number] [place] [address] Jul, [facility] [place] [facility] [address] [id number] [place] [address] Jul, [facility] [place] [facility] [address] [id number] [place] [address] Jul, [facility] [place] [facility] [address] [id number] [place] [address] Jul, [facility] [place] [facility] [address] [id number] [place] [address] Jul, [facility] [place] [facility] [address] [id number] [place] [address] Jul, [facility] [place] [facility] [address] [id number] [place] [address] Jul, [facility] [place] [facility] [address] [id number] [place] [address] Jul, [facility] [place] [facility] [address] [id number] [place] [address] Jul, [facility] [place] [facility] [address] [facility] [id number] [place] [address] Jul, [facility] [place] [facility] [address] [id number] [place] [address] 03 Jul, 2014 [facility] [place] [facility] [address] [id number] [address] 16 Jun, 2014 [facility] [place] [facility] [address] [id number] [place] [address] 16 Jun, 2014 [facility] [place] [facility] [address] [id number] [place] [address] 15 Jun, 2014 [facility] [place] [facility] [address] [address] [id number], [place] [address] 14 Jun, 2014 [facility] [place] [facility] [address] [id number] [place] [address] 14 Jun, 2014 [facility] [place] [facility] [address] [id number] [place] [address] 1448 14 Jun, 2014 [facility] [place] [facility] [address] [id number] [place] [address] 7[address] 14 Jun, 2014 [facility] [place] [facility] [address] [id number] [place] [address] 6176 13 Jun, 2014 [facility] [place] [facility] [address] [id number] [place] [address] 5093 10 Jun, 2014 [facility] [place] [facility] [address] [id number] [place] [address] 0783 10 Jun, 2014 [facility] [place] [facility] [address] [id number] [place] [address] 2081 09 Jun, 2014 [facility] [place] [facility] [address] [id number] [place] [address] 2599 09 Jun, 2014 [facility] [place] [facility] [address] [id number] [place] [address] 8127 06 Jun, 2014 [facility] [place] [facility] [address] [id number] [place] [address] 5367 06 Jun, 2014 [facility] [place] [facility] [address] [id number] [place] [address] 3903 16 May, 2013 [facility] [place] [facility] [address] [id number] [place] [address] 4072 15 May, 2013 [facility] [place] [facility] [address] [id number] [place] [address] 9993 15 May, 2014 [facility] [place] [facility] [address] [id number] [place] [address] 4960 15 May, 2013 [facility] [place] [facility] [address] [id number] [place] [address] 3137 15 May, 2013 [facility] [place] [facility] [address] [id number] [place] [address] 7741 15 May, 2013 [facility] [place] [facility] [address] [id number] [place] [address]- 0870 15 May, 2013 [facility] [place] [facility] [address] [id number] [place] [address]- 3554 12 May, 2013 [facility] [place] [facility] [address] [id number] [place] [address] 6961 12 May, 2013 [facility] [place] [facility] [address] [id number] [place] [address] 8730 10 May, 2013 [facility] [place] [facility] [address] [id number] [place] [address]- 0140 10 May, 2013 [facility] [place] [facility] [address] [id number] [place] [address] 8391 02 May, 2013 [facility] [place] [facility] [address] [id number] [place] [address] 2450 May, 2013 [facility] [place] [facility] [address] [id number] [place] [address] 3971 May, 2013 [facility] [place] [facility] [address] [id number] [place] [address] 7608 May, 2013 [facility] [place] [facility] [address] [id number] [place] [address] 4037 Apr, [facility] [place] [facility] [address] [id number] [place] [address] 6910 Apr, [facility] [place] [facility] [address] [id number] [place] [address] 9699 Apr, [facility] [place] [facility] [address] [id number] [place] [address] 1799 Apr, [facility] [place] [facility] [address] [id number] [place] [address] 2170 Apr, [facility] [place] [facility] [address] [id number] [place] [address] 8309 Apr, [facility] [place] [facility] [address] [id number] [place] [address] 3961 Apr, [facility] [place] [facility] [address] [id number] [place] [address] 5910 Apr, [facility] [place] [facility] [address] [id number] [place] [address] 8913 Apr, [facility] [place] [facility] [address] [id number] [place] [address] 3954 Mar, [facility] [place] [facility] [address] [id number] [place] [address] 3204 Mar, [facility] [place] [facility] [address] [id number] [place] [address] 3160 Mar, [facility] [place] [facility] [address] [id number] [place] [address] 5699 Mar, [facility] [place] [facility] [address] [id number] [place] [address] 4458 Mar, [facility] [place] [facility] [address] [id number] [place] [address] 1526 Mar, [facility] [place] [facility] [address] [id number] [place] [address] 6430 Mar, [facility] [place] [facility] [address] [id number] [place] [address]- 0230 Mar, [facility] [place] [facility] [address] [id number] [place] [address] 2671 Mar, [facility] [place] [facility] [address] [id number] [place] [address] 2388 Mar, [facility] [place] [facility] [address] [id number] [place] [address]- 1015 Mar, [facility] [place] [facility] [address] [id number] [place] [address]- 4634 Mar, [facility] [place] [facility] [address] [id number] [place] [address] 5628 Mar, [facility] [place] [facility] [address] [id number] [place] [address]- 2348 Mar, 2013 [facility] [place] [facility] [address] [id number] [place] [address]- 8963 Mar, [facility] [place] [facility] [address] [id number] [place] [address]- 1217 Mar, [facility] [place] [facility] [address] [id number] [place] [address]- 2216 Mar, [facility] [place] [facility] [address] [id number] [place] [address]- 8887 Mar, [facility] [place] [facility] [address] [id number] [place] [address] 5340 Feb, [facility] [place] [facility] [address] [id number] [place] [address]- 6474 Feb, [facility] [place] [facility] [address] [id number] [place] [address]- 9176 Feb, [facility] [place] [facility] [address] [id number] [place] [address]- 9212 Feb, [facility] [place] [facility] [address] [id number] [place] [address]- 1259 Feb, [facility] [place] [facility] [address] [id number] [place] [address]- 9518 Feb, [facility] [place] [facility] [address] [id number] [place] [address] 8010 Feb, [facility] [place] [facility] [address] [id number] [place] [address]- 4566 Feb, [facility] [place] [facility] [address] [id number] [place] [address]- 8516 Feb, [facility] [place] [facility] [address] [id number] [place] [address]- 0983 Feb, [facility] [place] [facility] [address] [id number] [place] [address]- 7622 January, [facility] [address] [id number] [place] [address]- 0235 January, [facility] [place] [facility] [address] [id number] [place] [address] January, [facility] [place] [facility] [address] [id number] [place] [address]- 5823 January, [facility] [place] [facility] [address] [id number] [place] [address]- 5639 January, [facility] [place] [facility] [address] [id number] [place] [address]- 5944 January, [facility] [place] [facility] [address] [id number] [place] [address]- 9155 January, [facility] [address] [id number] [place] [address]- 8713 January, [facility] [place] [facility] [address] [id number] [place] [address]- 8237 January, [facility] [place] [facility] [address] [id number] [place] [address]- 8533 January, [facility] [place] [facility] [address] [id number] [place] [address]- 1741 January, [facility] [place] [facility] [address] [id number] [place] [address]- 7180 January, [facility] [place] [facility] [address] [id number] [place] [address]- 4778 January, [facility] [place] [facility] [address] [id number] [place] [address]- 6161 January, [facility] [place] [facility] [address] [id number] [place] [address]- 7281 January, [facility] [place] [facility] [address] [id number] [place] [address]- 5344 Dec, [facility] [place] [facility] [address] [id number] [place] [address]- 2632 10 Dec, 2013 [facility] [place] [facility] [address] [id number] [place] [address]- 1516 Dec, [facility] [place] [facility] [address] [id number] [place] [address]- 9352 Dec, [facility] [place] [facility] [address] [id number] [place] [address]- 6200 Dec, [facility] [place] [facility] [address] [id number] [place] [address]- 9356 Dec, [facility] [place] [facility] [address] [id number] [place] [address]- 5168 Nov, [facility] [place] [facility] [address] [id number] [place] [address]- 4472 Nov, [facility] [place] [facility] [address] [id number] [place] [address]- 2084 Nov, [facility] [place] [facility] [address] [id number] [place] [address]- 2992 Nov, [facility] [place] [facility] [address] [id number] [place] [address]- 4359 Nov, [facility] [place] [facility] [address] [id number] [place] [address]- 4207 Oct, [facility] [place] [facility] [address] [id number] [place] [address]- 3488 Oct, [facility] [place] [facility] [address] [id number] [place] [address]- 6579 Oct, [facility] [place] [facility] [address] [id number] [place] [address]- 2225 Oct, [facility] [place] [facility] [address] [id number] [place] [address]- 9964 10 Oct, 2013 [facility] [place] [facility] [address] [id number] [place] [address]- 8939 Oct, [facility] [address] [id number] [place] [address]- 0089 06 Oct, 2013 [facility] [place] [facility] [address] [id number] [place] Oct, [facility] [place] [facility] [address] [id number] [place] [address]- 1896 Oct, [facility] [place] [facility] [address] [id number] [place] [address]- 0462 Oct, [facility] [place] [facility] [address] [id number] [place] [address]- 4749 Oct, [facility] [place] [facility] [address] [id number] [place] [address]- 7794 Sep, [facility] [address] [id number] [place] [address]- 0125 Sep, [facility] [place] [facility] [address] [id number] [place] [address]- 8738 Sep, [facility] [address] [id number] [place] [address]- 2952 Sep, [facility] [place] [facility] [address] [facility] [id number] [place] [address]- 5031 Aug, [facility] [place] [facility] [address] [id number] [place] [address]- 0283 Aug, [facility] [place] [facility] [address] [id number] [address]- 6686 Jul, [facility] [place] [facility] [address] [id number] [place] [address]- 8518 Jul, [facility] [place] [facility] [address] [id number] [place] [address]- 2957 Jul, [facility] [place] [facility] [address] [id number] [place] [address]- 6523 Jul, [facility] [place] [facility] [address] [id number] [place] [address]- 9014 Jul, [facility] [place] [facility] [address] [id number] [place] [address]- 9645 Jun, [facility] [place] [facility] [address] [id number] [place] [address]- 5586 Jun, [facility] [place] [facility] [address] [id number] [place] [address]- 3621 May, [facility] [place] [facility] [address] [id number] [place] [address]- 4479 Mar, [facility] [place] [facility] [address] [id number] [place] [address]- 3774 Mar, [facility] [place] [facility] [address] [id number] [place] [address]- 0278 Mar, [facility] [place] [facility] [address] [id number] [place] [address]- 3167 Feb, [facility] [place] [facility] [address] [id number] [place] [address]- 6784 January, [facility] [place] [facility] [address] [id number] [place] [address]- 7507 Dec, [facility] [place] [facility] [address] [id number] [place] [address]- 8163 Nov, [facility] [place] [facility] [address] [id number] [place] [address]- 1156 Nov, [facility] [place] [facility] [address] [id number] [place] [address]- 8333 Nov, [facility] [place] [facility] [address] [id number] [place] [address]- 2771 Oct, [facility] [place] [facility] [address] [id number] [place] [address]- 0406 Oct, [facility] [place] [facility] [address] [id number] [place] [address]- 8636 Oct, [facility] [address] [facility] [id number] [place] [address]- 2546 Oct, [facility] [address] [facility] [id number] [place] [address]- 2546 Sep, IMMUNIZATIONS No Known Immunizations SOCIAL HISTORY Never Assessed REASON FOR VISIT Medication refill request PLAN OF CARE VITAL SIGNS MEDICATIONS Medication Instructions Dosage Frequency Start Date End Date Duration Status Rozerem 8 MG Orally Once a day for sleep 1 tablet at bedtime as needed Feb, Active Guanfacine HCl 1 MG TAKE ONE TABLET BY MOUTH IN THE MORNING, ONE TABLET AT 2:00PM AND TWO TABLETS AT BEDTIME Active Loxapine Succinate 10 mg Orally 1 tab in AM and 3 tabs at HS 1 capsule Active Elavil 25 MG Orally Once at bedtime for sleep 3 tablet Dec, Active RESULTS No Results PROCEDURES [...]
--- OUTSIDE RECORDS SUMMARY | 2018-02-03 13:27 | XMS REPORT ---
Author Author TEE CALLE Organization [facility] Address [address] [place] [address] Care Team Providers Care Cook Station Name Role Phone TEE CALLE Unavailable PROBLEMS Type Condition ICD9-CM Code [id number] Code Onset Dates Condition Status SNOMED Code Problem Postoperative hypothyroidism E89.0 Active 95987808 Problem Obesity E66.9 Active 151087876 Problem Bipolar 2 disorder F31.81 Active 35261483 Problem Panic disorder [episodic paroxysmal anxiety] without agoraphobia F41.0 Active 61470580 Problem COLLEEN (generalized anxiety disorder) F41.1 Active 43846575 Problem Attention deficit disorder F90.0 Active 268251570 Problem Generalized anxiety disorder F41.1 Active 66230109 Problem Acne L70.9 Active 93622256 Problem Hypertension I10 Active 26830317 ALLERGIES No Information SOCIAL HISTORY Never Assessed [...]
[2018-02-03] MEDS ORDERED: LACTATED RINGERS 1,000 ML IV SCH (13:45)
[2018-02-03] MEDS ORDERED: ONDANSETRON 4 MG/2 ML (SDV) Z0FRAN IVP ONE (13:45)
[2018-02-03 13:47] LABS: BASOPHILS % (AUTO) 0 % (0-10); EOSINOPHILS # (AUTO) 0.1 10^3/uL (0.0-0.3); EOSINOPHILS % (AUTO) 1 % (0-10); HEMATOCRIT 40 % (35-52); HEMOGLOBIN 14.1 G/DL (11.5-16.0); LYMPHOCYTES # (AUTO) 2.9 X 10^3 (1.0-4.0); LYMPHOCYTES % (AUTO) 27 % (12-44); MEAN CORPUSCULAR HEMOGLOBIN 32 PG (25-34); MEAN CORPUSCULAR HGB CONC 35 G/DL (32-36); MEAN CORPUSCULAR VOLUME 92 FL (80-99); MEAN PLATELET VOLUME 11.6 FL (7.4-10.4); MONOCYTES # (AUTO) 1.1 X 10^3 (0.0-1.0); MONOCYTES % (AUTO) 11 % (0-12); NEUTROPHILS # (AUTO) 6.5 X 10^3 (1.8-7.8); NEUTROPHILS % (AUTO) 61 % (42-75); PLATELET COUNT 449 10^3/uL (130-400); RED BLOOD COUNT 4.37 10^6/uL (4.35-5.85); RED CELL DISTRIBUTION WIDTH 13.7 % (10.0-14.5); WHITE BLOOD COUNT 10.7 10^3/uL (4.3-11.0)
--- NOTE | 2018-02-03 13:48 | ED Abdominal Pain ---
General Chief Complaint: Abdominal/GI Problems Stated Complaint: DEHYDRATED VOMITTING FOR 3 DAYS Nursing Triage Note: c/o vomiting x 3 days. Decreased urinated reported. Pt in no acute distress. Sepsis Screen: No Definite Risk Source of Information: Patient Exam Limitations: No Limitations History of Present Illness Date Seen by Provider: February 03, 2018 Time Seen by Provider: 13:45 Initial Comments To ER per private vehicle with reports of nausea vomiting and abdominal pain. This is been going on for 3 days. She reports recurrent episodes of nausea vomiting and abdominal pain since she was in her mid teenage years. She denies fevers chills or diarrhea. The only thing that helps is a hot shower with the water hitting her abdomen. She smokes marijuana not daily but nearly every day. Timing/Duration: Intermittent Severity/Quality: Moderate Radiation: No Radiation Activities at Onset: None Associated Symptoms: Nausea/Vomiting Allergies and Home Medications Allergies Coded Allergies: Sulfa (Sulfonamide Antibiotics) (Unverified Allergy, Unknown, 07/25/14) penicillin G (Verified Allergy, Unknown, 07/25/14) Home Medications Budesonide/Formoterol Fumarate 1 Inhaler Aero, Unknown Dose IH RTBID, (Reported) Citalopram Hydrobromide 40 Mg Tablet, 1 EACH PO DAILY, (Reported) Guanfacine Hcl 1 Mg Tablet, 1 MG PO TID, (Reported) Hydroxyzine Hcl 50 Mg Tablet, 50 MG PO TID, (Reported) Levothyroxine Sodium 200 Mcg Tablet, 225 MCG PO DAILY, (Reported) Loxapine 10 Mg Aer.pow.ba, 10 MG IH UD, (Reported) Trazodone Hcl 150 Mg Tablet, 150 MG PO DAILY, (Reported) Zolpidem Tartrate 5 Mg Tablet, Unknown Dose PO HS, (Reported) Patient Home Medication List Home Medication List Reviewed: Yes Review of Systems Constitutional: see HPI EENTM: No Symptoms Reported Respiratory: No Symptoms Reported Cardiovascular: No Symptoms Reported Gastrointestinal: See HPI, Abdominal Pain, Nausea, Vomiting Genitourinary: No Symptoms Reported Musculoskeletal: no symptoms reported Skin: no symptoms reported Psychiatric/Neurological: No Symptoms Reported Endocrine: No Symptoms Reported Past Aefcnwi-Imrlkt-Spsqle Hx Patient Social History Alcohol Use: Denies Use Recreational Drug Use: No Smoking Status: Current Everyday Smoker Type Used: Cigarettes Recent Foreign Travel: No Contact w/Someone Who Travel: No Recent Infectious Disease Expo: No Seasonal Allergies Seasonal Allergies: No Past Medical History Surgeries: Yes (ORBITAL/FACIAL RECONSTRUCTION,MOLE REMOVALS,WISDOM TEETH REMOVAL, I&D'S) Orthopedic Respiratory: Yes Asthma, Chronic Bronchitis Cardiac: No Neurological: Yes Concussion, Headaches /Migraines Female Reproductive Disorders: Denies Sexually Transmitted Disease: Yes (HERPES) Gastrointestinal: Yes Gastroesophageal Reflux Musculoskeletal: No Endocrine: Yes Hypothyroidsim Cancer: No Psychosocial: Yes (PANIC ATTACKS) ADD/ADHD, Sleep Difficulties, Anxiety, Bipolar, Depression Integumentary: Yes (ORAL AND GENITAL, "STAPH" AXILLARY ABSCESS ) Herpes Blood Disorders: No Adverse Reaction/Blood Tranf: No Physical Exam Vital Signs Vital Signs - First Documented 02/03/18 13:25 Temp 96.7 Pulse 89 Resp 16 B/P (MAP) 133/104 (114) Pulse Ox 98 O2 Delivery Room Air Capillary Refill : Less Than 3 Seconds General Appearance: WD/WN, no apparent distress HEENT: PERRL/EOMI, normal ENT inspection Neck: non-tender, full range of motion Respiratory: normal breath sounds, no respiratory distress, no accessory muscle use Cardiovascular: regular rate, rhythm, no murmur Gastrointestinal: normal bowel sounds, soft Extremities: normal range of motion, non-tender Neurologic/Psychiatric: alert, normal mood/affect, oriented x 3 Skin: normal color, warm/dry Progress/Results/Core Measures Results/Orders Lab Results Laboratory Tests Test 02/03/18 13:40 02/03/18 16:00 Range/Units White Blood Count 10.7 4.3-11.0 10^3/uL Red Blood Count 4.37 4.35-5.85 10^6/uL Hemoglobin 14.1 11.5-16.0 G/DL Hematocrit 40 35-52 % Mean Corpuscular Volume 92 80-99 FL Mean Corpuscular Hemoglobin 32 25-34 PG Mean Corpuscular Hemoglobin Concent 35 32-36 G/DL Red Cell Distribution Width 13.7 10.0-14.5 % Platelet Count 449 H 130-400 10^3/uL Mean Platelet Volume 11.6 H 7.4-10.4 FL Neutrophils (%) (Auto) 61 42-75 % Lymphocytes (%) (Auto) 27 12-44 % Monocytes (%) (Auto) 11 0-12 % Eosinophils (%) (Auto) 1 0-10 % Basophils (%) (Auto) 0 0-10 % Neutrophils # (Auto) 6.5 1.8-7.8 X 10^3 Lymphocytes # (Auto) 2.9 1.0-4.0 X 10^3 Monocytes # (Auto) 1.1 H 0.0-1.0 X 10^3 Eosinophils # (Auto) 0.1 0.0-0.3 10^3/uL Basophils # (Auto) 0.0 0.0-0.1 10^3/uL Sodium Level 142 135-145 MMOL/L Potassium Level 2.8 L 3.6-5.0 MMOL/L Chloride Level 97 L 98-107 MMOL/L Carbon Dioxide Level 31 21-32 MMOL/L Anion Gap 14 5-14 MMOL/L Blood Urea Nitrogen 14 7-18 MG/DL Creatinine 0.96 0.60-1.30 MG/DL Estimat Glomerular Filtration Rate > 60 BUN/Creatinine Ratio 15 Glucose Level 90 70-105 MG/DL Calcium Level 9.8 8.5-10.1 MG/DL Total Bilirubin 0.9 0.1-1.0 MG/DL Aspartate Amino Transf (AST/SGOT) 18 5-34 U/L Alanine Aminotransferase (ALT/SGPT) 19 0-55 U/L Alkaline Phosphatase 68 40-136 U/L Total Protein 8.0 6.4-8.2 GM/DL Albumin 4.5 3.2-4.5 GM/DL Lipase 24 8-78 U/L Urine Color KRYSTYNA H Urine Clarity SLIGHTLY CLOUDY Urine pH 6 5-9 Urine Specific [place] 1.020 1.016-1.022 Urine Protein 2+ H NEGATIVE Urine Glucose (UA) NEGATIVE NEGATIVE Urine Ketones 1+ H NEGATIVE Urine Nitrite NEGATIVE NEGATIVE Urine Bilirubin 1+ H NEGATIVE Urine Urobilinogen 4 H NORMAL MG/DL Urine Leukocyte Esterase 1+ H NEGATIVE Urine RBC (Auto) NEGATIVE NEGATIVE Urine RBC 0-2 /HPF Urine WBC 2-5 /HPF Urine Squamous Epithelial Cells 10-25 H /HPF Urine Crystals NONE /LPF Urine Bacteria FEW H /HPF Urine Casts NONE /LPF Urine Mucus NEGATIVE /LPF Urine Culture Indicated NO Urine Opiates Screen NEGATIVE NEGATIVE Urine Oxycodone Screen NEGATIVE NEGATIVE Urine Methadone Screen NEGATIVE NEGATIVE Urine Propoxyphene Screen NEGATIVE NEGATIVE Urine Barbiturates Screen NEGATIVE NEGATIVE Ur Tricyclic Antidepressants Screen POSITIVE H NEGATIVE Urine Phencyclidine Screen NEGATIVE NEGATIVE Urine Amphetamines Screen NEGATIVE NEGATIVE Urine Methamphetamines Screen NEGATIVE NEGATIVE Urine Benzodiazepines Screen POSITIVE H NEGATIVE Urine Cocaine Screen NEGATIVE NEGATIVE Urine Cannabinoids Screen POSITIVE H NEGATIVE My Orders Orders - ELANA GRIJALVA APRN Cbc With Automated Diff (02/03/18 13:39) Comprehensive Metabolic Panel (02/03/18 13:39) Ua Culture If Indicated (02/03/18 13:39) Lipase (02/03/18 13:39) Iv Heplock-Insert (Order) (02/03/18 13:39) Lactated Ringers (Lr 1000 Ml Iv Solution (02/03/18 13:45) Ondansetron Injection (Zofran Injectio (02/03/18 13:45) Drug Screen Stat (Urine) (02/03/18 13:44) Potassium Cl 10meq/50ml Ivpb (Kcl 10 Meq (02/03/18 14:30) Potassium Chloride (Tablet) (K Dur Table (02/03/18 14:30) Ns Iv 1000 Ml (Sodium Chloride 0.9%) (02/03/18 15:15) Medications Given in ED Current Medications Medications Dose Ordered Sig/Bj Route Start Time Stop Time Status Last Admin Dose Admin Ondansetron HCl 4 mg ONCE ONCE IVP 02/03/18 13:45 02/03/18 13:46 DC 02/03/18 14:02 4 MG Potassium Chloride 40 meq ONCE ONCE PO 02/03/18 14:30 02/03/18 14:31 DC 02/03/18 15:09 40 MEQ Potassium Chloride 50 ml @ 50 mls/hr ONCE ONCE IV 02/03/18 14:30 02/03/18 15:29 DC 02/03/18 15:10 50 MLS/HR Vital Signs/I&O 02/03/18 13:25 Temp 96.7 Pulse 89 Resp 16 B/P (MAP) 133/104 (114) Pulse Ox 98 O2 Delivery Room Air Blood Pressure Mean: 114 Departure Impression Primary Impression: Cannabinoid hyperemesis syndrome Additional Impression: Hypokalemia Disposition: 01 HOME, SELF-CARE Condition: Stable Departure-Patient Inst. Decision time for Depature: 13:46 Referrals: [facility] (PCP/Family) Primary Care Physician Patient Instructions: NO INSTRUCTIONS GIVEN Add. Discharge Instructions: 1. Youre best to reduce marijuana intake as this is the cause of your recurrent nausea and vomiting. Hot showers help and application of topical capsaicin cream to the abdominal wall also helps when you have these recurrent episodes of abdominal pain nausea and vomiting. These symptoms will not go away until you stop the marijuana use for at least one month unfortunately. All discharge instructions reviewed with patient and/or family. Voiced understanding. Scripts Hydroxyzine Pamoate (Vistaril) 50 Mg Capsule 50 MG PO HS, #20 CAP Prov: ELANA GRIJALVA APRN 02/03/18 Potassium Chloride (Potassium Chloride) 20 Meq Tablet.er 40 MEQ PO DAILY, #8 TAB Prov: ELANA GRIJALVA APRN 02/03/18 Work/School Note: Work Release Form Date Seen in the Emergency Department: February 03, 2018 Return to Work: February 04, 2018 ELANA GRIJALVA APRN February 03, 2018 13:48
[2018-02-03 14:09] LABS: ALANINE AMINOTRANSFERASE 19 U/L (0-55); ALBUMIN 4.5 GM/DL (3.2-4.5); ALKALINE PHOSPHATASE 68 U/L (40-136); BILIRUBIN,TOTAL 0.9 MG/DL (0.1-1.0); BUN/CREATININE RATIO 15; CALCIUM 9.8 MG/DL (8.5-10.1); CARBON DIOXIDE 31 MMOL/L (21-32); CHLORIDE 97 MMOL/L (98-107); CREATININE SERUM 0.96 MG/DL (0.60-1.30); GFR ESTIMATED > 60; GLUCOSE 90 MG/DL (70-105); LIPASE 24 U/L (8-78); POTASSIUM 2.8 MMOL/L (3.6-5.0); SODIUM 142 MMOL/L (135-145)
[2018-02-03] MEDS ORDERED: KCL 20 MEQ TAB (K-DUR) PO ONE (14:30)
[2018-02-03] MEDS ORDERED: POTASSIUM CL 10MEQ/50ML IVPB 50 ML IV ONE (14:30)
[2018-02-03] MEDS ORDERED: NS IV 1000 ML 1,000 ML IV SCH (15:15)
[2018-02-03 16:13] LABS: CLARITY,URINE SLIGHTLY CLOUDY; COLOR,URINE AMBER; GLUCOSE, URINE (UA) NEGATIVE (NEGATIVE); KETONES,URINE 1+ (NEGATIVE); LEUKOCYTE ESTERASE ,URINE 1+ (NEGATIVE); NITRITE,URINE NEGATIVE (NEGATIVE); PH,URINE 6 (5-9); PROTEIN,URINE 2+ (NEGATIVE); UROBILINOGEN,URINE 4 MG/DL (NORMAL)
[2018-02-03 16:30] LABS: AMPHETAMINE SCREEN, URINE NEGATIVE (NEGATIVE); BARBITURATE SCREEN URINE NEGATIVE (NEGATIVE); BENZODIAZEPINES SCREEN URINE POSITIVE (NEGATIVE); CANNABINOID SCREEN, URINE POSITIVE (NEGATIVE); COCAINE SCREEN URINE NEGATIVE (NEGATIVE); METHADONE STAT NEGATIVE (NEGATIVE); METHAMPHETAMINE SCREEN URINE S NEGATIVE (NEGATIVE); OPIATE SCREEN URINE NEGATIVE (NEGATIVE); OXYCODONE STAT NEGATIVE (NEGATIVE); PROPOXYPHENE STAT NEGATIVE (NEGATIVE); TRICYCLIC ANTIDEPRESSANTS SCRE POSITIVE (NEGATIVE)
[2018-02-03 16:32] LABS: BACTERIA,URINE FEW /HPF; BILIRUBIN,URINE 1+ (NEGATIVE); RBC,URINE 0-2 /HPF
[2018-02-03] MEDS ORDERED: POTA-51 PO (16:47)
[2018-02-03] MEDS ORDERED: HYDR50CA PO (16:48)
[2018-02-03 16:56] VITALS: BP 133/90
== END 2018-02-03 16:56 | disposition home or self-care (01) ==
LOC: EDUNIT# 13:12 → ER 13:14
DX: F12.188 Cannabis abuse with other cannabis-induced disorder (principal); R11.10 Vomiting, unspecified; E87.6 Hypokalemia; J45.909 Unspecified asthma, uncomplicated; G43.909 Migraine, unspecified, not intractable, without status migrainosus; K21.9 Gastro-esophageal reflux disease without esophagitis; E03.9 Hypothyroidism, unspecified; F41.0 Panic disorder [episodic paroxysmal anxiety]; F31.9 Bipolar disorder, unspecified; F90.9 Attention-deficit hyperactivity disorder, unspecified type; F12.10 Cannabis abuse, uncomplicated; F17.210 Nicotine dependence, cigarettes, uncomplicated; Z86.19 Personal history of other infectious and parasitic diseases; Z88.2 Allergy status to sulfonamides; Z88.0 Allergy status to penicillin
CPT/HCPCS: 36415; 80053; 80306; 81000; 83690; 85025; 96361; 96365; 96375

== ENCOUNTER 2018-09-23 12:25 | Emergency (ER) | payer SELFPAY ==
[~2018-09-23 12:25] MED LIST changes: +HYDR50CA PO; +POTA-51 PO
--- OUTSIDE RECORDS SUMMARY | 2018-09-23 22:00 | XMS REPORT ---
Author Author ALLEN PATRICK Organization [facility] Address [address] [place] [address] Care Team Providers Care Tableau Lead Name Role Phone ALLEN PATRICK Unavailable PROBLEMS Type Condition ICD9-CM Code ECW98-VR Code Onset Dates Condition Status SNOMED Code Problem Essential hypertension I10 Active 49563601 Problem Primary insomnia F51.01 Active 2429488 Problem Acquired hypothyroidism E03.9 Active 837441524 Problem Hypothyroidism (acquired) E03.9 Active 021146320 Problem Arthritis M19.90 Active 0007265 Problem Sciatica of right side M54.31 Active 51867732 Problem Migraine with aura and without status migrainosus, not intractable G43.109 Active 8412889 Problem Attention-deficit hyperactivity disorder, predominantly inattentive type F90.0 Active 42063051 Problem Current nonadherence to medical treatment Z91.19 Active 1166848 Problem LGSIL on Pap smear of cervix R87.612 Active 632468870 Problem Postoperative hypothyroidism E89.0 Active 04239416 Problem Generalized anxiety disorder F41.1 Active 37357930 Problem Bipolar 2 disorder F31.81 Active 02224948 Problem Abnormal liver function K76.89 Active 49537987 Problem Acne L70.9 Active 50115894 Problem Obesity E66.9 Active 930023656 Problem Panic disorder [episodic paroxysmal anxiety] without agoraphobia F41.0 Active 38178331 ALLERGIES No Information ENCOUNTERS Encounter Location Date Diagnosis [facility] [id number] [address] Sep, [facility] [address], [place] [address] Aug, [facility] [address] [address] Aug, [facility] [address] [place] [address] 84327- 9945 Aug, Arthritis M19.90 [facility] [address] [address] Jul, Arthritis M19.90 [facility] [address] Jun, [facility] [address], [place] [address] 7[address] Jun, [facility] [address], [place] [address] 9140 Jun, [facility] [address] [place] [address] 89925- 3080 Jun, [facility] [address] [place] [address] 04892- 4958 May, [facility] [address], [place] [address] May, Arthritis M19.90 [facility] [address], [place] [address] Apr, [facility] [address], [place] [address] 1995 Apr, Generalized anxiety disorder F41.1 ; Arthritis M19.90 ; Hypothyroidism (acquired) E03.9 and Lymph node enlargement R59.9 [facility] [address], [place] [address] 39[address] Apr, Arthritis M19.90 and Sciatica of right side M54.31 [facility] [address], [place] [address] 8[address] Mar, Arthritis M19.90 ; Hypothyroidism (acquired) E03.9 and Lymph node enlargement R59.9 [facility] [id number], [place] [address] Mar, Well woman exam with routine gynecological exam Z01.419 ; control counseling Z30.09 ; Acquired hypothyroidism E03.9 ; Sciatica of right side M54.31 ; Breast tenderness N64.4 and Generalized anxiety disorder F41.1 [facility] [id number] [place] [address] 00658- 0849 Mar, [facility] [id number] [place] [address] 50613- 9899 Feb, Bipolar 2 disorder F31.81 ; Generalized anxiety disorder F41.1 ; Attention-deficit hyperactivity disorder, predominantly inattentive type F90.0 and Current nonadherence to medical treatment Z91.19 [facility] [id number] [place] [address] 36932- 7635 07 Feb, 2018 [place] [id number] [place] [address] 46826- 2537 Nov, Normal physical exam Z00.00 and Enlarged lymph node R59.9 [place] [id number] [place] [address] 48225- 1895 Nov, Enlarged lymph node R59.9 ; Abnormal liver function K76.89 and Hypothyroid E03.9 [place] [id number] [place] [address] 32542- 0097 Oct, Bipolar 2 disorder F31.81 [place] [id number] [place] [address] 97307- 7234 Oct, Sciatica of right side M54.31 and Essential hypertension I10 [place] [id number] [place] [address] 26229- 5120 Oct, [facility] [id number] [place] [address] 09989- 9911 Aug, Hypothyroid E03.9 [facility] [id number] [place] [address] 07447- 1936 Aug, [place] [facility] [id number] [place] [address] 35003- 6965 Aug, Bipolar 2 disorder F31.81 [facility] [address], [place] [address]- 5[address] 05 Aug, 2017 Abnormal liver function K76.89 [place] [facility] [id number] [place] [address] 05671- 1024 29 Jul, 2017 Bipolar 2 disorder F31.81 [facility] [id number] [place] [address] 67016 -2732 22 Jul, 2017 [place] [id number] [place] [address] 38100- 0432 14 Jul, 2017 Bipolar 2 disorder F31.81 ; Generalized anxiety disorder F41.1 ; Attention-deficit hyperactivity disorder, predominantly inattentive type F90.0 and Current nonadherence to medical treatment Z91.19 [place] [address] [place] [address] 51439 -4250 14 Jul, 2017 Essential hypertension I10 ; Other viral agents as the cause of diseases classified elsewhere B97.89 ; Acute upper respiratory infection, unspecified J06.9 and BMI 40.0-44.9, adult Z68.41 [place] [facility] [id number] [place] [address] 33309- 0047 13 Jul, 2017 [place] [id number] [place] [address] 55355- 6992 Jul, [place] [facility] [id number] [place] [address] 10271- 5782 Jun, [place] [facility] [id number] [place] [address] 34385- 9088 Jun, [place] [facility] [id number] [place] [address] 81097- 1252 Jun, Dysuria R30.0 ; Urinary tract infection, site not specified N39.0 ; Hematuria, unspecified R31.9 ; Sciatica of right side M54.31 ; Migraine with aura and without status migrainosus, not intractable G43.109 ; Primary insomnia F51.01 ; Essential hypertension I10 and Acquired hypothyroidism E03.9 [place] [id number] [place] [address] 31784- 1937 Jun, Bipolar 2 disorder F31.81 [facility] [id number] [place] [address] 31956- 2321 Jun, Bipolar 2 disorder F31.81 [facility] [id number] [place] [address] 32951- 3163 May, Sore throat J02.9 ; Acute serous otitis media of left ear, recurrence not specified H65.02 and Hypertension I10 [facility] [id number] [place] [address] 03424- 3653 May, Bipolar 2 disorder F31.81 [facility] [id number] [place] [address] 19907- 8955 Apr, [facility] [address] 20592- 2547 Apr, Bipolar 2 disorder F31.81 [facility] [id number] [place] [address] 91468- 9026 Mar, [facility] [id number] [place] [address] 78193- 0177 Feb, Bipolar 2 disorder F31.81 ; Attention deficit disorder F90.0 ; COLLEEN (generalized anxiety disorder) F41.1 and Panic disorder [episodic paroxysmal anxiety] without agoraphobia F41.0 [facility] [id number] [place] [address] 04772- 8632 January, Bipolar 2 disorder F31.81 [facility] [id number] [place] [address] 96290- 6333 Dec, [facility] [id number] [place] [address] 48517- 0592 Dec, [facility] [id number] [place] [address] 88184- 3807 Dec, [facility] [id number] [place] [address] 08916- 6867 13 Dec, 2016 Generalized anxiety disorder F41.1 ; Bipolar 2 disorder F31.81 and Panic disorder [episodic paroxysmal anxiety] without agoraphobia F41.0 [facility] [address] [place] [address] 85862- 3154 12 Dec, 2016 [facility] [address], [place] [address]- 5196 Dec, [facility] [id number] [place] [address] 114011- 2818 Nov, [facility] [id number] [place] [address] 33949- 5878 Nov, [facility] [id number] [place] [address] 900651- 7183 Nov, [facility] [id number] [place] [address] 77259- 2075 Oct, [facility] [id number] [place] [address] 12495- 5429 Oct, [facility] [id number] [place] [address] 45585- 3541 Oct, [facility] [address], [place] [address]- 5275 Oct, [facility] [address] [place] [address] 05408- 0349 Oct, [facility] [address] [address] 3252 Sep, Bipolar 2 disorder F31.81 ; COLLEEN (generalized anxiety disorder) F41.1 ; Attention deficit disorder F90.0 and Panic disorder [episodic paroxysmal anxiety] without agoraphobia F41.0 [facility] [address], [place] [address]- 0338 Sep, [facility] [id number] [place] [address] 26042- 5696 Sep, [facility] [address] [place] [address] 62285- 7357 Sep, [facility] [id number] [place] [address] 42722- 5310 Aug, [facility] [id number] [place] [address] 97983- 4369 Aug, [facility] [id number] [place] [address] 98305- 0619 Aug, [facility] [id number] [place] [address] 81786- 6617 Aug, [facility] [id number] [place] [address] 36548- 0289 Jul, [facility] [id number] [place] [address] 50159- 5607 Jul, [facility] [id number] [place] [address] 18510- 6206 Jul, [facility] [id number] [place] [address] 09872- 0505 Jun, [facility] [id number] [place] [address] 96785- 5103 Jun, Bipolar 2 disorder F31.81 ; Attention deficit disorder F90.0 ; COLLEEN (generalized anxiety disorder) F41.1 and Panic disorder [episodic paroxysmal anxiety] without agoraphobia F41.0 [facility] [address], [place] [address]- 5201 Jun, [facility] [id number] [place] [address] 82035- 1443 Jun, [facility] [id number] [place] [address] 37626- 4082 Jun, Right foot pain M79.671 and Nausea and vomiting in adult R11.2 [facility] [id number] [place] [address] 59941- 1469 May, [facility] [id number] [place] [address] 50605- 6254 May, Other sinusitis, unspecified chronicity J32.9 ; Environmental allergies Z91.09 ; Other chronic pain G89.29 and Sacrococcygeal disorders, not elsewhere classified M53.3 [facility] [id number] [place] [address] 54266 -8824 May, Acute non-recurrent pansinusitis J01.40 and Gastroenteritis K52.9 [facility] [id number] [place] [address] 86485- 6837 May, [facility] [id number] [place] [address] 56493- 5356 May, [facility] [id number] [place] [address] 35666- 1704 Apr, Bronchitis J40 [facility] [id number] [place] [address] 84566- 5541 Apr, [facility] [id number] [place] [address] 96888- 5569 Apr, [facility] [id number] [place] [address] 92478- 2585 Apr, [facility] [id number] [place] [address] 25296 -4421 Apr, Nausea and vomiting in adult R11.2 [facility] [id number] [place] [address] 59412- 1575 Apr, Nausea and vomiting in adult R11.2 [facility] [id number] [place] [address] 27334- 7087 Apr, Bipolar 2 disorder F31.81 ; Generalized anxiety disorder F41.1 ; Panic disorder [episodic paroxysmal anxiety] without agoraphobia F41.0 ; Attention deficit disorder F90.0 and COLLEEN (generalized anxiety disorder) F41.1 [facility] [address], [place] [address]- 1202 Apr, [facility] [address] [place] [address] 85891- 5630 Mar, [facility] [address], [place] [address]- 3407 Mar, [facility] [id number] [place] [address] 78739- 7286 Mar, [facility] [address] [place] [address] 84506- 5616 Mar, Bipolar 2 disorder F31.81 ; Attention deficit disorder F90.0 ; COLLEEN (generalized anxiety disorder) F41.1 and Panic disorder [episodic paroxysmal anxiety] without agoraphobia F41.0 [facility] [address], [place] [address]- 3461 Mar, [facility] [address] [place] [address] 47349- 8195 Feb, Bipolar 2 disorder F31.81 ; Generalized anxiety disorder F41.1 and Attention deficit disorder F90.0 [facility] [address] [place] [address] 68385- 3358 Feb, Generalized anxiety disorder F41.1 [facility] [address], [place] [address]- 4743 Feb, Generalized anxiety disorder F41.1 ; Attention deficit disorder F90.0 and Bipolar 2 disorder F31.81 [facility] [address], [place] [address]- 2907 Feb, Bipolar 2 disorder F31.81 ; Generalized anxiety disorder F41.1 ; Attention deficit disorder F90.0 and Insomnia, unspecified type G47.00 [facility] [address], [place] [address]- 0766 Feb, Excessive sweating R61 and Breast lump in upper outer quadrant N63 [facility] [id number] [place] [address] 57357 -2390 January, Low back pain M54.5 ; Other chronic pain G89.29 and Urinary tract infection, site unspecified N39.0 [facility] [id number] [place] [address] 61721- 1534 January, Bipolar II disorder F31.81 [facility] [address] 54859- 5501 January, [facility] [address] 98064- 7395 January, Insomnia, unspecified type G47.00 and Grief F43.20 [facility] [id number] [place] [address] 53681- 6597 January, [facility] [address] 34712- 0767 Dec, [facility] [id number] [place] [address] 97265- 7614 Dec, [facility] [address] 56902- 6229 Dec, Bipolar 2 disorder F31.81 ; Generalized anxiety disorder F41.1 and Attention deficit disorder F90.0 [facility] [id number] [place] [address] 26982- 6214 Dec, Sinusitis J32.9 [facility] [id number] [place] [address] 38955- 2350 14 Dec, 2015 Sinusitis J32.9 and Hypothyroid E03.9 [facility] [address] 77512- 1994 Dec, [facility] [id number] [place] [address] 94070 -9493 Dec, Cough R05 and Allergic rhinitis J30.9 [facility] [address] 29984- 5353 Nov, Hypertension I10 ; Obesity E66.9 and Acne L70.9 [facility] [id number] [place] [address] 46928- 7193 Nov, [facility] [id number] [place] [address] 94073- 4193 Oct, [facility] [address] 54767- 2628 Oct, [facility] [id number] [place] [address] 46110- 9031 Oct, [facility] [id number] [place] [address] 64791- 3937 Oct, [facility] [id number] [place] [address] 02469- 4574 Sep, Lymphadenitis I88.9 ; Essential hypertension I10 and Acne, unspecified acne type L70.9 [facility] [id number] [place] [address] 12802- 2304 Sep, [facility] [id number] [place] [address] 40413- 0150 Sep, [facility] [id number] [place] [address] 50305- 1129 Sep, [facility] [id number] [place] [address] 93056- 3698 Sep, Acquired hypothyroidism E03.9 [facility] [id number] [place] [address] 29987- 8592 Aug, Acquired hypothyroidism E03.9 [facility] [address] [place] [address] 67726- 5393 Aug, Furuncle L02.92 [facility] [id number] [place] [address] 73391- 5430 Aug, [facility] [address] [place] [address] 85240- 8841 Aug, Bipolar 2 disorder F31.81 ; Generalized anxiety disorder F41.1 ; Attention deficit disorder F90.0 and Obesity E66.9 [place] [id number] [place] [address] 84603- 8380 Aug, [place] [id number] [place] [address] 44246- 1090 Aug, [place] [id number] [place] [address] 56285- 2778 Aug, Acquired hypothyroidism E03.[address] 65749- 4158 Jul, Acquired hypothyroidism E03.9 ; Upper respiratory tract infection, unspecified type J06.9 and Nonintractable migraine, unspecified migraine type G43.009 [place] [id number] [place] [address] 91251- 2129 Jun, Acute pharyngitis, unspecified J02.9 [place] [id number] [place] [address] 93795- 8103 May, Bipolar II disorder 296.89 ; Attention deficit disorder of childhood without mention of hyperactivity 314.00 ; Generalized anxiety disorder 300.02 and Morbid obesity with BMI of 45.0-49.9, adult 278.01 [place] [id number] [place] [address] 31739- 0072 May, Sinusitis 473.9 [place] [id number] [place] [address] 22553- 0623 Apr, [place] [id number] [place] [address] 26694- 8612 Mar, [place] [id number] [place] [address] 97694848- 0976 Mar, Bipolar II disorder 296.89 ; Generalized anxiety disorder 300.02 ; Obesity, unspecified 278.00 and Attention deficit disorder 314.00 [facility] [address] [id number] [place] [address]- 9701 24 Feb, 2015 [facility] [place] [facility] [address] [id number] [place] [address]- 1870 January, [facility] [place] [facility] [address] [id number] [place] 3089 January, [facility] [place] [facility] [address] [id number] [place] [address]- 0562 January, [facility] [place] [facility] [address] [id number] [place] [address]- 2447 January, [facility] [place] [facility] [address] [id number] [place] [address]- 5799 Dec, [facility] [place] [facility] [address] [facility] [id number] [place] [address]- 5326 Dec, [facility] [place] [facility] [address] [facility] [id number] [place] [address]- 0831 30 Nov, 2014 [facility] [place] [facility] [address] [facility] [id number] [place] [address]- 6887 Nov, [facility] [place] [facility] [address] [facility] [id number] [place] [address]- 8737 18 Nov, 2014 [facility] [place] [facility] [address] [facility] [id number] [place] [address]- 3665 Nov, [facility] [place] [facility] [address] [id number] [address]- 3581 Nov, [facility] [place] [facility] [address] [facility] [id number] [place] [address]- 2605 Nov, [facility] [place] [facility] [address] [facility] [id number] [place] [address]- 1305 Nov, [facility] [place] [facility] [address] [facility] [id number] 2559 Nov, [facility] [place] [facility] [address] [facility] [id number], [place] [address] Nov, [facility] [place] [facility] [address] [id number] [place] [address] Nov, [facility] [place] [facility] [address] [facility] [id number] [place] [address] Nov, 2014 [facility] [place] [facility] [address] [facility] [id number] [place] [address] Nov, [facility] [place] [facility] [address] [facility] [id number] [place] [address] Nov, [facility] [place] [facility] [address] [facility] [id number] [place] [address] Nov, [facility] [place] [facility] [address] [facility] [id number] [place] [address] 24 Oct, 2014 [facility] [place] [facility] [address] [facility] [id number] [place] [address] 24 Oct, 2014 [facility] [place] [facility] [address] [facility] [id number] [place] [address] 24 Oct, 2014 [facility] [place] [facility] [address] [facility] [id number] [place] [address] 24 Oct, 2014 [facility] [place] [facility] [address] [facility] [id number] [place] [address] Oct, 2014 [facility] [place] [facility] [address] [facility] [id number] [place] [address] Oct, 2014 [facility] [place] [facility] [address] [facility] [id number], [place] [address] 13 Oct, 2014 [facility] [place] [facility] [address] [facility] [id number] [place] [address] Oct, 2014 [facility] [place] [facility] [address] [facility] [id number] [place] [address] 12 Oct, 2014 [facility] [place] [facility] [address] [facility] [id number] [place] [address] Oct, [facility] [place] [facility] [address] [id number] [place] [address] Oct, [facility] [place] [facility] [address] [id number] [place] [address] Oct, [facility] [place] [facility] [address] [id number] [place] [address] Sep, [facility] [place] [facility] [address] [id number] [place] [address] Sep, [facility] [place] [facility] [address] [id number] [place] [address] Sep, [facility] [place] [facility] [address] [id number] [place] [address] Sep, [facility] [place] [facility] [address] [facility] [id number] [place] [address] Sep, [facility] [place] [facility] [address] [id number] [place] [address] Sep, [facility] [place] [facility] [address] [id number] [place] [address] Sep, [facility] [place] [facility] [address] [facility] [id number] [address] Sep, [facility] [place] [facility] [address] [id number] [place] [address] Aug, [facility] [place] [facility] [address] [id number], [place] [address] Aug, [facility] [place] [facility] [address] [id number] [place] [address] Aug, [facility] [place] [facility] [address] [id number] [place] [address]- [address] Aug, [facility] [place] [facility] [address] [id number] [place] [address]- 2085 Aug, [facility] [place] [facility] [address] [id number] [place] [address]- 3405 Aug, [facility] [place] [facility] [address] [id number] [place] [address]- 5823 Aug, [facility] [place] [facility] [address] [id number] [place] [address]- 8582 Aug, [facility] [place] [facility] [address] [id number] [place] [address]- 1026 Aug, [facility] [place] [facility] [address] [id number] [place] [address]- 9564 Aug, [facility] [place] [facility] [address] [id number] [place] [address]- 2913 Aug, [facility] [place] [facility] [address] [id number] [place] [address]- 6889 Aug, [facility] [place] [facility] [address] [id number] [place] [address]- 1404 Aug, [facility] [place] [facility] [address] [id number] [place] [address]- 4989 Aug, [facility] [place] [facility] [address] [id number] [place] [address]- 8321 Jul, [facility] [place] [facility] [address] [facility] [id number] [place] [address]- 1236 Jul, [facility] [place] [facility] [address] [id number] [place] [address]- 0658 Jul, [facility] [place] [facility] [address] [id number] [place] [address]- 2845 Jul, [facility] [place] [facility] [address] [id number] [place] [address]- 4651 Jul, [facility] [place] [facility] [address] [id number] [place] [address]- 1453 Jul, [facility] [place] [facility] [address] [facility] [id number] [place] [address]- 7154 Jul, [facility] [place] [facility] [address] [id number] [place] [address]- 7431 05 Jul, 2014 [facility] [place] [facility] [address] [id number] [place] [address]- 7670 04 Jul, 2014 [facility] [place] [facility] [address] [id number] [place] [address]- 3531 04 Jul, 2014 [facility] [place] [facility] [address] [id number] [place] [address]- 4424 Jul, [facility] [place] [facility] [address] [id number] [place] [address]- 6[address] 03 Jul, 2014 [facility] [place] [facility] [address] [id number] [place] [address]- 9651 16 Jun, 2014 [facility] [place] [facility] [address] [id number] [place] [address]- 5346 16 Jun, 2014 [facility] [place] [facility] [address] [id number] [place] [address]- 8573 15 Jun, 2014 [facility] [place] [facility] [address] [id number] [place] [address]- 0832 14 Jun, 2014 [facility] [place] [facility] [address] [id number] [place] [address]- 8190 14 Jun, 2014 [facility] [place] [facility] [address] [id number] [place] [address]- 0007 14 Jun, 2014 [facility] [place] [facility] [address] [id number] [place] [address]- 7617 14 Jun, 2014 [facility] [place] [facility] [address] [id number] [place] [address]- 5700 13 Jun, 2014 [facility] [place] [facility] [address] [id number] [place] [address]- 2504 10 Jun, 2014 [facility] [place] [facility] [address] [id number] [place] [address]- 7629 10 Jun, 2014 [facility] [place] [facility] [address] [id number] [place] [address]- 4859 Jun, [facility] [place] [facility] [address] [id number] [place] [address]- 7127 09 Jun, 2014 [facility] [place] [facility] [address] [id number] [place] [address]- 6026 Jun, [facility] [place] [facility] [address] [id number] [place] [address]- 4126 Jun, [facility] [place] [facility] [address] [id number] [place] [address]- 6476 16 May, 2013 [facility] [place] [facility] [address] [id number] [place] [address]- 0273 15 May, 2013 [facility] [place] [facility] [address] [id number] [place] [address]- 1764 15 May, 2013 [facility] [place] [facility] [address] [id number] [place] [address]- 8433 15 May, 2013 [facility] [place] [facility] [address] [id number] [place] [address]- 2710 15 May, 2013 [facility] [place] [facility] [address] [id number] [place] [address]- 9056 15 May, 2013 [facility] [place] [facility] [address] [id number] [place] [address]- 2575 15 May, 2013 [facility] [place] [facility] [address] [id number] [address] 12 May, 2013 [facility] [place] [facility] [address] [id number], [place] [address]- 2547 12 May, 2013 [facility] [place] [facility] [address] [id number] [place] [address] 2546 10 May, 2013 [facility] [place] [facility] [address] [id number] [place] [address]- 2545 10 May, 2013 [facility] [place] [facility] [address] [id number] [place] [address]- 2544 02 May, 2013 [facility] [place] [facility] [address] [id number] [place] [address]- 4836 May, [facility] [place] [facility] [address] [id number] [place] [address]- 6508 May, [facility] [place] [facility] [address] [id number] [place] [address]- 9502 May, [facility] [place] [facility] [address] [id number] [place] [address]- 8421 Apr, [facility] [place] [facility] [address] [id number] [place] [address]- 7115 Apr, [facility] [place] [facility] [address] [id number] [place] [address]- 2027 Apr, [facility] [place] [facility] [address] [id number] [place] [address]- 4377 Apr, [facility] [place] [facility] [address] [id number] [place] [address]- 9943 Apr, [facility] [place] [facility] [address] [id number] [place] [address]- 8213 Apr, [facility] [place] [facility] [address] [id number] [place] [address]- 8708 Apr, [facility] [place] [facility] [address] [id number] [place] [address]- 9554 Apr, [facility] [place] [facility] [address] [id number] [place] [address]- 0582 Apr, [facility] [place] [facility] [address] [id number] [place] [address]- 8921 Mar, [facility] [place] [facility] [address] [id number] [place] [address]- 6818 Mar, [facility] [place] [facility] [address] [id number] [place] [address]- 7748 Mar, [facility] [place] [facility] [address] [id number] [place] [address]- 5532 Mar, [facility] [place] [facility] [address] [id number] [place] [address]- 2954 Mar, 2013 [facility] [place] [facility] [address] [id number] [place] [address]- 2997 Mar, 2013 [facility] [place] [facility] [address] [id number] [place] [address]- 6495 Mar, 2013 [facility] [place] [facility] [address] [id number] [place] [address]- 5786 Mar, 2013 [facility] [place] [facility] [address] [id number] [place] [address]- 2442 Mar, 2013 [facility] [place] [facility] [address] [id number] [place] [address]- 8833 Mar, 2013 [facility] [place] [facility] [address] [id number] [place] [address]- 2449 Mar, 2013 [facility] [place] [facility] [address] [id number] [place] [address]- 2253 Mar, 2013 [facility] [place] [facility] [address] [id number] [place] [address]- 0120 Mar, 2013 [facility] [place] [facility] [address] [id number] [place] [address]- 8110 Mar, 2013 [facility] [place] [facility] [address] [id number] [place] [address]- 8085 Mar, 2013 [facility] [place] [facility] [address] [id number] [place] [address]- 4386 Mar, 2013 [facility] [place] [facility] [address] [id number] [place] [address]- 8573 Mar, [facility] [place] [facility] [address] [id number] [place] [address]- 9076 Mar, 2013 [facility] [place] [facility] [address] [id number] [place] [address]- 1948 Feb, [facility] [place] [facility] [address] [id number] [place] [address]- 8250 Feb, [facility] [place] [facility] [address] [id number] [place] [address]- 3021 Feb, [facility] [place] [facility] [address] [id number] [place] [address]- 6567 Feb, [facility] [place] [facility] [address] [id number] [place] [address]- 8242 Feb, [facility] [place] [facility] [address] [id number] [place] [address]- 7403 Feb, [facility] [place] [facility] [address] [id number] [place] [address]- 7939 Feb, [facility] [place] [facility] [address] [id number] [place] [address]- 7137 Feb, [facility] [place] [facility] [address] [id number] [place] [address]- 8033 Feb, [facility] [place] [facility] [address] [id number] [place] [address]- 5817 Feb, [facility] [place] [facility] [address] [id number] [place] [address]- 6143 January, [facility] [place] [facility] [address] [id number] [place] [address]- 6655 January, [facility] [place] [facility] [address] [id number] [place] [address]- 0105 January, [facility] [place] [facility] [address] [id number] [place] [address]- 7596 January, [facility] [place] [facility] [address] [id number] [place] [address]- 2106 January, [facility] [place] [facility] [address] [id number] [place] [address]- 4855 January, [facility] [place] [facility] [address] [id number] [place] [address]- 2352 January, [facility] [place] [facility] [address] [id number] [place] [address]- 2838 January, [facility] [address] [id number] [place] [address]- 7528 January, [facility] [place] [facility] [address] [id number] [place] [address]- 0696 January, [facility] [place] [facility] [address] [id number] [place] [address]- 3794 January, [facility] [place] [facility] [address] [id number] [place] [address]- 7452 January, [facility] [place] [facility] [address] [id number] [place] [address]- 5759 January, [facility] [place] [facility] [address] [id number] [place] [address]- 3819 January, [facility] [place] [facility] [address] [id number] [place] [address]- 5843 January, [facility] [address] [id number] [place] [address]- 6871 Dec, [facility] [place] [facility] [address] [id number] [place] [address]- 7746 Dec, [facility] [place] [facility] [address] [id number] [place] [address]- 1348 Dec, [facility] [place] [facility] [address] [id number] [place] [address]- 3069 Dec, [facility] [place] [facility] [address] [id number] [place] [address]- 3790 Dec, [facility] [place] [facility] [address] [id number] [place] [address]- 8847 Dec, [facility] [place] [facility] [address] [id number] [place] [address]- 4735 Nov, [facility] [place] [facility] [address] [id number] [place] [address]- 4014 Nov, [facility] [place] [facility] [address] [id number] [place] [address]- 4879 Nov, [facility] [place] [facility] [address] [id number] [place] [address]- 8460 Nov, [facility] [place] [facility] [address] [id number] [place] [address]- 0389 Nov, [facility] [place] [facility] [address] [id number] [place] [address]- 4179 Oct, [facility] [place] [facility] [address] [id number] [place] [address]- 1082 Oct, [facility] [place] [facility] [address] [id number] [place] [address]- 2671 Oct, [facility] [place] [facility] [address] [id number] [place] [address]- 1195 Oct, [facility] [place] [facility] [address] [id number] [place] [address]- 8056 Oct, [facility] [place] [facility] [address] [id number] [place] [address]- 0089 Oct, [facility] [place] [facility] [address] [id number] [place] [address]- 0554 Oct, [facility] [place] [facility] [address] [id number] [place] [address]- 6744 Oct, [facility] [place] [facility] [address] [id number] [place] [address]- 3265 Oct, [facility] [place] [facility] [address] [id number] [place] [address]- 0009 Oct, [facility] [place] [facility] [address] [id number] [place] [address]- 9331 Oct, [facility] [place] [facility] [address] [facility] [id number] [place] [address]- 7694 14 Sep, 2013 [facility] [place] [facility] [address] [id number] [place] [address]- 6428 14 Sep, 2013 [facility] [place] [facility] [address] [id number] [place] [address]- 5389 Sep, [facility] [place] [facility] [address] [id number] [place] [address]- 6075 Sep, [facility] [place] [facility] [address] [id number] [place] [address]- 8907 Aug, [facility] [place] [facility] [address] [id number] [place] [address]- 7336 Aug, [facility] [place] [facility] [address] [id number] [place] [address]- 9847 Jul, [facility] [place] [facility] [address] [id number] [place] [address]- 7474 Jul, [facility] [place] [facility] [address] [id number] [place] [address]- 3502 Jul, [facility] [place] [facility] [address] [id number] [place] [address]- 4382 Jul, [facility] [place] [facility] [address] [id number] [place] [address]- 8154 Jul, [facility] [place] [facility] [address] [id number] [place] [address]- 2227 Jun, [facility] [place] [facility] [address] [id number] [place] [address]- 5146 Jun, [facility] [place] [facility] [address] [id number] [place] [address]- 6510 May, [facility] [place] [facility] [address] [id number] [place] [address]- 7478 Mar, [facility] [place] [facility] [address] [id number] [place] [address]- 2546 Mar, [facility] [place] [facility] [address] [id number] [place] [address]- 2706 Mar, [facility] [address] [id number] [address]- [address] Feb, [facility] [id number], [place] [address]- 2546 January, [facility] [id number], [place] [address]- 2546 Dec, [facility] [address] [id number] [address] 2546 Nov, [facility] [id number] [address] 2546 Nov, [facility] [id number] [place] [address] 2546 Nov, [facility] [id number], [place] [address] 2546 Oct, [facility] [id number], [place] [address] 2546 Oct, [facility] [id number], [place] [address] 2546 Oct, [facility] [id number], [place] [address] 2546 Oct, [facility] [address] [id number], [place] [address]- 4416 Sep, IMMUNIZATIONS No Known Immunizations SOCIAL HISTORY Never Assessed REASON FOR VISIT repository medication PLAN OF CARE VITAL SIGNS MEDICATIONS Medication Instructions Dosage Frequency Start Date End Date Duration Status Meloxicam 7.5 mg Orally 2 times a day 1 tablet 12h Mar, 30 day( s) Active Tizanidine HCl 4 MG Orally 3 times a day 1 tablet as needed 8h Nov, Active RESULTS No Results PROCEDURES No Known [...]
--- OUTSIDE RECORDS SUMMARY | 2018-09-23 22:01 | XMS REPORT ---
Author Author ALLEN PATRICK Organization [facility] Address [address] [place] [address] Care Team Providers Care Pals Nurse Name Role Phone ALLEN PATRICK Unavailable PROBLEMS Type Condition ICD9-CM Code MPL64-NF Code Onset Dates Condition Status SNOMED Code Problem Essential hypertension I10 Active 69232914 Problem Primary insomnia F51.01 Active 9078777 Problem Acquired hypothyroidism E03.9 Active 261222915 Problem Hypothyroidism (acquired) E03.9 Active 014207588 Problem Arthritis M19.90 Active 8229911 Problem Sciatica of right side M54.31 Active 35905715 Problem Migraine with aura and without status migrainosus, not intractable G43.109 Active 1986128 Problem Attention-deficit hyperactivity disorder, predominantly inattentive type F90.0 Active 76456604 Problem Current nonadherence to medical treatment Z91.19 Active 4838307 Problem LGSIL on Pap smear of cervix R87.612 Active 444683318 Problem Postoperative hypothyroidism E89.0 Active 55868680 Problem Generalized anxiety disorder F41.1 Active 95306052 Problem Bipolar 2 disorder F31.81 Active 60327795 Problem Abnormal liver function K76.89 Active 64490200 Problem Acne L70.9 Active 30798533 Problem Obesity E66.9 Active 760748101 Problem Panic disorder [episodic paroxysmal anxiety] without agoraphobia F41.0 Active 53435925 ALLERGIES No Information ENCOUNTERS Encounter Location Date Diagnosis [facility] [id number] [address] Jul, [facility] [id number] [place] [address] 37532- 5800 Jul, Arthritis M19.90 [facility] [address] [address] Jun, [facility] [address] [address] 1674 Jun, [facility] [address] [address] 5516 Jun, [facility] [address] [address] Jun, [facility] [address] [address] 1644 May, [facility] [address] [place] [address] 30184- 4818 May, Arthritis M19.90 [address] [place] [address] 57165- 4618 Apr, [facility] [address] [address] 58[address] Apr, Generalized anxiety disorder F41.1 ; Arthritis M19.90 ; Hypothyroidism (acquired) E03.9 and Lymph node enlargement R59.9 [facility] [address] [address]- 0[address] Apr, Arthritis M19.90 and Sciatica of right side M54.31 [facility] [address] [address] 0253 Mar, Arthritis M19.90 ; Hypothyroidism (acquired) E03.9 and Lymph node enlargement R59.9 [facility] [facility] [address] [address] 4052 Mar, Well woman exam with routine gynecological exam Z01.419 ; control counseling Z30.09 ; Acquired hypothyroidism E03.9 ; Sciatica of right side M54.31 ; Breast tenderness N64.4 and Generalized anxiety disorder F41.1 [facility] [facility] [address] [address] 4[address] Mar, [facility] [id number] [address] 1028 Feb, Bipolar 2 disorder F31.81 ; Generalized anxiety disorder F41.1 ; Attention-deficit hyperactivity disorder, predominantly inattentive type F90.0 and Current nonadherence to medical treatment Z91.19 [facility] [id number] [place] [address] 01597- 1988 Feb, [facility] [id number] [place] [address] 89130- 7940 Nov, Normal physical exam Z00.00 and Enlarged lymph node R59.9 [facility] [facility] [address] [address]17- 2027 Nov, Enlarged lymph node R59.9 ; Abnormal liver function K76.89 and Hypothyroid E03.9 [facility] [address] 22757- 3367 Oct, Bipolar 2 disorder F31.81 [facility] [facility] [address] 75806- 6176 Oct, Sciatica of right side M54.31 and Essential hypertension I10 [facility] [id number] [place] [address] 40123- 1426 Oct, [facility] [id number] [place] [address] 95325- 4743 Aug, Hypothyroid E03.9 [facility] [id number] [place] [address] 98986- 8937 Aug, [facility] [id number] [place] [address] 11410- 3051 Aug, Bipolar 2 disorder F31.81 [facility] [id number] [place] [address] 86702- 3961 Aug, Abnormal liver function K76.89 [facility] [id number] [place] [address] 84195- 3866 Jul, Bipolar 2 disorder F31.81 [facility] [id number] [place] [address] 76620 -6996 Jul, [facility] [address] [place] [address] 35734- 4095 Jul, Bipolar 2 disorder F31.81 ; Generalized anxiety disorder F41.1 ; Attention-deficit hyperactivity disorder, predominantly inattentive type F90.0 and Current nonadherence to medical treatment Z91.19 [facility] [address] [place] [address] 82915 -8508 14 Jul, 2017 Essential hypertension I10 ; Other viral agents as the cause of diseases classified elsewhere B97.89 ; Acute upper respiratory infection, unspecified J06.9 and BMI 40.0-44.9, adult Z68.41 [address] [id number] [place] [address] 33491- 2112 13 Jul, 2017 [facility] [id number] [place] [address] 90913- 2524 07 Jul, 2017 [facility] [id number] [place] [address] 98080- 1960 Jun, [facility] [id number] [place] [address] 63577- 8056 Jun, [facility] [id number] [place] [address] 34117- 7233 Jun, Dysuria R30.0 ; Urinary tract infection, site not specified N39.0 ; Hematuria, unspecified R31.9 ; Sciatica of right side M54.31 ; Migraine with aura and without status migrainosus, not intractable G43.109 ; Primary insomnia F51.01 ; Essential hypertension I10 and Acquired hypothyroidism E03.9 [facility] [id number] [place] [address] 35788- 4047 Jun, Bipolar 2 disorder F31.81 [facility] [id number] [place] [address] 76404- 9062 Jun, Bipolar 2 disorder F31.81 [facility] [id number] [place] [address] 25982- 7713 May, Sore throat J02.9 ; Acute serous otitis media of left ear, recurrence not specified H65.02 and Hypertension I10 [facility] [id number] [place] [address] 45143- 4924 May, Bipolar 2 disorder F31.81 [facility] [id number] [place] [address] 54277- 3653 Apr, [facility] [id number] [place] [address] 56120- 2237 Apr, Bipolar 2 disorder F31.81 [facility] [id number] [place] [address] 72706- 7843 Mar, [facility] [id number] [place] [address] 17104- 4180 Feb, Bipolar 2 disorder F31.81 ; Attention deficit disorder F90.0 ; COLLEEN (generalized anxiety disorder) F41.1 and Panic disorder [episodic paroxysmal anxiety] without agoraphobia F41.0 [facility] [id number] [place] [address] 81719- 0284 January, Bipolar 2 disorder F31.81 [facility] [id number] [place] [address] 87869- 1715 Dec, [facility] [id number] [place] [address] 21511- 4456 Dec, [facility] [id number] [place] [address] 55672- 6548 Dec, [facility] [id number] [place] [address] 22200- 9323 Dec, Generalized anxiety disorder F41.1 ; Bipolar 2 disorder F31.81 and Panic disorder [episodic paroxysmal anxiety] without agoraphobia F41.0 [facility] [address] [place] [address] 95969- 6491 Dec, [facility] [id number] [place] [address] 55741- 4358 Dec, [facility] [address] [place] [address]- 0113 Nov, [facility] [address] [place] [address]- 7782 Nov, [facility] [address] 7696 Nov, [facility] [id number] [place] [address], [place] [address]- 5127 Oct, [facility] [id number] [place] [address], [place] [address]- 7857 Oct, [facility] [id number] [place] [address], [place] [address]- 1212 Oct, [facility] [address] [place] [address]- 1118 Oct, [facility] [address] [address]- 4224 Oct, [facility] [address] [address]- 1513 Sep, Bipolar 2 disorder F31.81 ; COLLEEN (generalized anxiety disorder) F41.1 ; Attention deficit disorder F90.0 and Panic disorder [episodic paroxysmal anxiety] without agoraphobia F41.0 [facility] [address] [address]- 4502 Sep, [facility] [address] [address]- 4296 Sep, [facility] [address] 7069 Sep, [facility] [address] [address]- 6951 Aug, [facility] [address] 5501 Aug, [facility] [address] [address]- 3385 Aug, [facility] [id number] [place] [address] 91765- 9618 Aug, [facility] [id number] [place] [address] 47608- 0474 Jul, [facility] [id number] [place] [address] 99263- 4561 Jul, [facility] [id number] [place] [address] 51725- 1863 Jul, [facility] [id number] [place] [address] 13357- 8051 Jun, [facility] [id number] [place] [address] 94451- 7884 Jun, Bipolar 2 disorder F31.81 ; Attention deficit disorder F90.0 ; COLLEEN (generalized anxiety disorder) F41.1 and Panic disorder [episodic paroxysmal anxiety] without agoraphobia F41.0 [facility] [address] [place] [address] 60642- 8267 Jun, [facility] [address] [place] [address] 40400- 6244 Jun, [facility] [address] [place] [address] 01659- 6055 Jun, Right foot pain M79.671 and Nausea and vomiting in adult R11.2 [facility] [address] [address]- 9588 May, [facility] [id number] [place] [address] 37966- 8820 May, Other sinusitis, unspecified chronicity J32.9 ; Environmental allergies Z91.09 ; Other chronic pain G89.29 and Sacrococcygeal disorders, not elsewhere classified M53.3 [facility] [id number] [place] [address] 79320 -3993 May, Acute non-recurrent pansinusitis J01.40 and Gastroenteritis K52.9 [facility] [id number] [place] [address] 18713- 9382 May, [facility] [address] 33132- 3240 May, [facility] [address] 66103- 7152 Apr, Bronchitis J40 [facility] [address] 01769- 1350 Apr, [facility] [address] 29498- 6178 Apr, [facility] [id number] [place] [address] 39050- 2418 Apr, [facility] [id number] [place] [address] 87375 -7332 Apr, Nausea and vomiting in adult R11.2 [facility] [address] 92778- 0577 Apr, Nausea and vomiting in adult R11.2 [facility] [id number] [place] [address] 82124- 7588 Apr, Bipolar 2 disorder F31.81 ; Generalized anxiety disorder F41.1 ; Panic disorder [episodic paroxysmal anxiety] without agoraphobia F41.0 ; Attention deficit disorder F90.0 and COLLEEN (generalized anxiety disorder) F41.1 [facility] [id number] [place] [address] 11366- 0643 Apr, [facility] [address] 22171- 1763 Mar, [facility] [id number] [place] [address] 43564- 6886 Mar, [facility] [id number] [place] [address] 40026- 0364 Mar, [facility] [id number] [place] [address] 95686- 3826 Mar, Bipolar 2 disorder F31.81 ; Attention deficit disorder F90.0 ; COLLEEN (generalized anxiety disorder) F41.1 and Panic disorder [episodic paroxysmal anxiety] without agoraphobia F41.0 [facility] [id number] [place] [address] 88137- 3305 Mar, [facility] [facility] [id number] [place] [address] 02594- 4421 Feb, Bipolar 2 disorder F31.81 ; Generalized anxiety disorder F41.1 and Attention deficit disorder F90.0 [facility] [id number] [place] [address] 73743- 1601 Feb, Generalized anxiety disorder F41.1 [facility] [id number] [place] [address] 19494- 8768 Feb, Generalized anxiety disorder F41.1 ; Attention deficit disorder F90.0 and Bipolar 2 disorder F31.81 [facility] [id number] [place] [address] 85919- 8935 Feb, Bipolar 2 disorder F31.81 ; Generalized anxiety disorder F41.1 ; Attention deficit disorder F90.0 and Insomnia, unspecified type G47.00 [facility] [id number] [place] [address] 75531- 4705 Feb, Excessive sweating R61 and Breast lump in upper outer quadrant N63 [facility] [id number] [place] [address] 97269 -9619 January, Low back pain M54.5 ; Other chronic pain G89.29 and Urinary tract infection, site unspecified N39.0 [facility] [id number] [place] [address] 83215- 5600 January, Bipolar II disorder F31.81 [facility] [id number] [place] [address] 74745- 7271 January, [facility] [address] 27156- 3260 January, Insomnia, unspecified type G47.00 and Grief F43.20 [facility] [address] 21120- 5680 January, [facility] [address] 30701- 0100 Dec, [facility] [address] 47547- 4174 Dec, [facility] [address] 95893- 1703 Dec, Bipolar 2 disorder F31.81 ; Generalized anxiety disorder F41.1 and Attention deficit disorder F90.0 [facility] [facility] [address] 02337- 5781 Dec, Sinusitis J32.9 [place] [facility] [address] 22046- 2095 Dec, Sinusitis J32.9 and Hypothyroid E03.9 [facility] [id number] [place] [address] 76842- 2008 Dec, [facility] [id number] [place] [address] 58134 -4333 Dec, Cough R05 and Allergic rhinitis J30.9 [facility] [id number] [place] [address] 97728- 3262 Nov, Hypertension I10 ; Obesity E66.9 and Acne L70.9 [facility] [id number] [place] [address] 81918- 4261 Nov, [facility] [address] 68781- 3414 Oct, [facility] [id number] [place] [address] 21164- 5255 Oct, [facility] [id number] [place] [address] 86227- 1209 Oct, [facility] [id number] [place] [address] 57944- 0560 Oct, [facility] [address] 10277- 0275 Sep, Lymphadenitis I88.9 ; Essential hypertension I10 and Acne, unspecified acne type L70.9 [facility] [id number] [place] [address] 60564- 6212 Sep, [facility] [id number] [place] [address] 16098- 3045 Sep, [facility] [id number] [place] [address] 75174- 0761 Sep, [facility] [id number] [place] [address] 16901- 1009 Sep, Acquired hypothyroidism E03.9 [facility] [id number] [place] [address] 00271- 0853 Aug, Acquired hypothyroidism E03.9 [facility] [id number] [place] [address] 54975- 7434 Aug, Furuncle L02.92 [facility] [id number] [place] [address] 75240- 0443 Aug, [facility] [id number] [place] [address] 03023- 1850 Aug, Bipolar 2 disorder F31.81 ; Generalized anxiety disorder F41.1 ; Attention deficit disorder F90.0 and Obesity E66.9 [facility] [id number] [place] [address] 87249- 4397 16 Aug, 2015 [facility] [id number] [place] [address] 59393- 2518 Aug, [facility] [address] [place] [address] 10581- 2570 Aug, Acquired hypothyroidism E03.9 [facility] [id number] [place] [address] 88918- 4777 Jul, Acquired hypothyroidism E03.9 ; Upper respiratory tract infection, unspecified type J06.9 and Nonintractable migraine, unspecified migraine type G43.009 [facility] [id number] [place] [address] 95555- 8480 Jun, Acute pharyngitis, unspecified J02.9 [facility] [id number] [place] [address] 10241- 4911 May, Bipolar II disorder 296.89 ; Attention deficit disorder of childhood without mention of hyperactivity 314.00 ; Generalized anxiety disorder 300.02 and Morbid obesity with BMI of 45.0-49.9, adult 278.01 [facility] [id number] [place] [address] 29010- 8347 May, Sinusitis 473.9 [facility] [id number] [place] [address] 49310- 5660 Apr, [facility] [id number] [place] [address] 05189- 6761 Mar, [facility] [address] [place] [address] 99220- 3910 Mar, Bipolar II disorder 296.89 ; Generalized anxiety disorder 300.02 ; Obesity, unspecified 278.00 and Attention deficit disorder 314.00 [facility] [address] [place] [address] 84458- 1449 Feb, [facility] [id number] [place] [address] 97933- 1540 January, [facility] [id number] [place] [address] 29899- 5293 January, [facility] [place] [facility] [address] [id number] [place] [address]- 9513 13 Jan, 2015 [facility] [place] [facility] [address] [id number] [place] [address]- 2088 06 Jan, 2015 [facility] [place] [facility] [address] [id number] [place] [address]- 5566 14 Dec, 2014 [facility] [place] [facility] [address] [id number] [place] [address]- 8829 Dec, [facility] [place] [facility] [address] [id number] [place] [address]- 3492 30 Nov, 2014 [facility] [place] [facility] [address] [id number] [place] [address]- 7705 18 Nov, 2014 [facility] [place] [facility] [address] [id number] [place] [address]- 1820 18 Nov, 2014 [facility] [place] [facility] [address] [id number] [place] [address]- 2811 11 Nov, 2014 [facility] [place] [facility] [address] [id number] [place] [address]- 5981 11 Nov, 2014 [facility] [place] [facility] [address] [id number] [place] [address]- 5004 11 Nov, 2014 [facility] [place] [facility] [address] [id number] [place] [address]- 3026 11 Nov, 2014 [facility] [place] [facility] [address] [id number] [place] [address]- 4215 11 Nov, 2014 [facility] [place] [facility] [address] [id number] [place] [address]- 1675 11 Nov, 2014 [facility] [place] [facility] [address] [id number] [place] [address]- 8896 10 Nov, 2014 [facility] [place] [facility] [address] [id number] [place] [address]- 7361 10 Nov, 2014 [facility] [place] [facility] [address] [id number] [place] [address]- 2710 Nov, [facility] [place] [facility] [address] [id number] [place] [address]- 2698 Nov, [facility] [place] [facility] [address] [facility] [id number] [place] [address]- 6706 Nov, [facility] [place] [facility] [address] [facility] [id number] [place] [address]- 9052 Oct, 2014 [facility] [place] [facility] [address] [id number] [place] [address]- 5688 Oct, 2014 [facility] [place] [facility] [address] [id number] [place] [address]- 5054 Oct, 2014 [facility] [place] [facility] [address] [facility] [id number] [place] [address]- 6227 Oct, 2014 [facility] [place] [facility] [address] [facility] [id number] [place] [address]- 2195 Oct, 2014 [facility] [place] [facility] [address] [facility] [id number] [place] [address]- 8262 Oct, 2014 [facility] [place] [facility] [address] [facility] [id number] [place] [address]- 2426 Oct, 2014 [facility] [place] [facility] [address] [facility] [id number] [place] [address]- 0204 Oct, 2014 [facility] [place] [facility] [address] [facility] [id number] [place] [address] Oct, 2014 [facility] [place] [facility] [address] [facility] [id number] [place] [address] Oct, 2014 [facility] [place] [facility] [address] [facility] [id number] [place] [address] Oct, 2014 [facility] [place] [facility] [address] [facility] [id number] [place] [address] Oct, 2014 [facility] [place] [facility] [address] [facility] [id number] [place] [address] Sep, [facility] [place] [facility] [address] [id number] [place] [address] Sep, [facility] [place] [facility] [address] [id number] [place] [address] Sep, [facility] [place] [facility] [address] [id number] [place] [address] Sep, [facility] [place] [facility] [address] [id number] [place] [address] Sep, [facility] [place] [facility] [address] [id number] [place] [address] Sep, [facility] [place] [facility] [address] [id number] [place] [address] Sep, [facility] [place] [facility] [address] [id number] [place] [address] Sep, [facility] [place] [facility] [address] [id number] [place] [address] Aug, [facility] [place] [facility] [address] [id number] [place] [address] Aug, [facility] [place] [facility] [address] [id number] [place] [address] Aug, [facility] [place] [facility] [address] [id number] [place] [address] Aug, [facility] [place] [facility] [address] [id number] [place] [address] Aug, [facility] [place] [facility] [address] [id number] [place] [address] Aug, [facility] [place] [facility] [address] [id number] [place] [address] Aug, [facility] [place] [facility] [address] [id number] [place] [id number] Aug, [facility] [place] [facility] [address] [address] [id number] [place] [address] Aug, [facility] [place] [facility] [address] [id number] [place] [address] Aug, [facility] [place] [facility] [address] [id number] [place] [address] Aug, [facility] [place] [facility] [address] [id number] [place] [address]40 Aug, [facility] [place] [facility] [address] [id number] [place] [address]38 Aug, [facility] [place] [facility] [address] [id number] [place] [address]85 Aug, [facility] [place] [facility] [address] [id number] [place] [address]291 Jul, [facility] [place] [facility] [address] [id number] [place] [address] 7210 Jul, [facility] [place] [facility] [address] [id number] [place] [address] 0732 Jul, [facility] [place] [facility] [address] [id number] [place] [address] Jul, [facility] [place] [facility] [address] [id number] [place] [address] 1050 Jul, [facility] [place] [facility] [address] [id number] [place] [address] Jul, [facility] [place] [facility] [address] [id number] [place] [address] Jul, [facility] [place] [facility] [address] [id number] [place] [address] 1033 Jul, [facility] [place] [facility] [address] [id number] [place] [address]- 0347 Jul, [facility] [place] [facility] [address] [id number] [place] [address]- 0942 Jul, [facility] [place] [facility] [address] [id number] [place] [address]- 6[address] 03 Jul, 2014 [facility] [place] [facility] [address] [id number] [place] [address]- 5944 03 Jul, 2014 [facility] [place] [facility] [address] [id number] [place] [address]- 0926 16 Jun, 2014 [facility] [place] [facility] [address] [id number] [place] [address]- 1822 16 Jun, 2014 [facility] [place] [facility] [address] [id number] [place] [address]- 4254 15 Jun, 2014 [facility] [place] [facility] [address] [id number] [place] [address]- 7870 14 Jun, 2014 [facility] [place] [facility] [address] [id number] [place] [address]- 0927 14 Jun, 2014 [facility] [place] [facility] [address] [id number] [place] [address]- 5396 14 Jun, 2014 [facility] [place] [facility] [address] [id number] [place] [address]- 5896 14 Jun, 2014 [facility] [place] [facility] [address] [id number] [place] [address]- 4583 13 Jun, 2014 [facility] [place] [facility] [address] [id number] [place] [address]- 3254 10 Jun, 2014 [facility] [place] [facility] [address] [id number] [place] [address]- 8302 10 Jun, 2014 [facility] [place] [facility] [address] [id number] [place] [address]- 5994 09 Jun, 2014 [facility] [place] [facility] [address] [id number] [place] [address]- 4454 Jun, [facility] [place] [facility] [address] [id number] [place] [address]- 8627 Jun, [facility] [place] [facility] [address] [id number] [place] [address]- 7757 06 Jun, 2014 [facility] [place] [facility] [address] [id number] [place] [address]- 2407 16 May, 2013 [facility] [place] [facility] [address] [id number] [place] [address]- 9326 15 May, 2013 [facility] [place] [facility] [address] [id number] [place] [address]- 4691 15 May, 2013 [facility] [place] [facility] [address] [id number] [place] [address] 2540 15 May, 2013 [facility] [place] [facility] [address] [id number] [place] [address]- 8373 15 May, 2013 [facility] [place] [facility] [address] [id number] [place] [address]- 3112 15 May, 2013 [facility] [place] [facility] [address] [id number] [place] [address]- 5038 15 May, 2013 [facility] [place] [facility] [address] [id number] [place] [address]- 1568 12 May, 2013 [facility] [place] [facility] [address] [id number] [place] [address]- 5900 12 May, 2013 [facility] [place] [facility] [address] [id number] [place] [address]- 1737 10 May, 2013 [facility] [place] [facility] [address] [id number] [place] [address]- 2545 10 May, 2013 [facility] [place] [facility] [address] [id number] [place] [address]- 8861 02 May, 2013 [facility] [place] [facility] [address] [id number] [place] [address] 2547 02 May, 2013 [facility] [place] [facility] [address] [id number] [place] [address]- 2547 02 May, 2013 [facility] [place] [facility] [address] [id number] [place] [address]- 3111 02 May, 2013 [facility] [place] [facility] [address] [id number] [place] [address]- 4866 Apr, [facility] [place] [facility] [address] [id number] [place] [address]- 2154 Apr, [facility] [place] [facility] [address] [id number] [place] [address]- 1210 Apr, [facility] [place] [facility] [address] [id number] [place] [address]- 2238 Apr, [facility] [place] [facility] [address] [id number] [place] [address]- 4486 Apr, [facility] [place] [facility] [address] [id number] [place] [address]- 4015 Apr, [facility] [place] [facility] [address] [id number] [place] [address]- 6626 Apr, [facility] [place] [facility] [address] [id number] [place] [address]- 2712 Apr, [facility] [place] [facility] [address] [id number] [place] [address]- 3131 Apr, [facility] [place] [facility] [address] [id number] [place] [address]- 9225 Mar, [facility] [place] [facility] [address] [id number] [place] [address]- 2078 Mar, [facility] [place] [facility] [address] [id number] [place] [address]- 7720 Mar, [facility] [place] [facility] [address] [id number] [place] [address]- 2609 Mar, [facility] [place] [facility] [address] [id number] [place] [address]- 1414 Mar, [facility] [place] [facility] [address] [id number] [place] [address]- 7498 Mar, [facility] [place] [facility] [address] [id number] [place] [address]- 2881 Mar, [facility] [place] [facility] [address] [id number] [place] [address] 8519 Mar, 2013 [facility] [place] [facility] [address] [id number] [place] [address]- 4362 Mar, 2013 [facility] [place] [facility] [address] [id number] [place] [address]- 9136 Mar, 2013 [facility] [place] [facility] [address] [id number] [place] [address]- 9646 Mar, 2013 [facility] [place] [facility] [address] [id number] [place] [address]- 0887 Mar, 2013 [facility] [place] [facility] [address] [id number] [place] [address]- 5523 Mar, 2013 [facility] [place] [facility] [address] [id number] [place] [address]- 9306 Mar, 2013 [facility] [place] [facility] [address] [id number] [place] [address]- 2823 Mar, 2013 [facility] [place] [facility] [address] [id number] [place] [address]- 4731 Mar, [facility] [place] [facility] [address] [id number] [place] [address]- 0391 Mar, [facility] [place] [facility] [address] [id number] [place] [address]- 8553 Mar, [facility] [place] [facility] [address] [id number] [place] [address]- 6365 Feb, [facility] [place] [facility] [address] [id number] [place] [address]- 4385 Feb, [facility] [place] [facility] [address] [id number] [place] [address]- 9385 Feb, [facility] [place] [facility] [address] [id number] [place] [address]- 5826 Feb, [facility] [place] [facility] [address] [id number] [place] [address]- 4433 Feb, [facility] [place] [facility] [address] [id number] [place] [address]- 6154 Feb, [facility] [place] [facility] [address] [id number] [place] [address]- 4473 Feb, [facility] [place] [facility] [address] [id number] [place] [address]- 0425 Feb, [facility] [place] [facility] [address] [id number] [place] [address]- 1501 Feb, [facility] [place] [facility] [address] [id number] [place] [address]- 5925 Feb, [facility] [place] [facility] [address] [id number] [place] [address]- 3914 January, [facility] [place] [facility] [address] [id number] [place] [address]- 9798 January, [facility] [place] [facility] [address] [id number] [place] [address]- 8770 January, [facility] [place] [facility] [address] [id number] [place] [address]- 8087 January, [facility] [place] [facility] [address] [id number] [place] [address]- 2541 January, [facility] [place] [facility] [address] [id number] [place] [address]- 2890 January, [facility] [place] [facility] [address] [id number] [place] [address]- 9926 January, [facility] [place] [facility] [address] [id number] [place] [address]- 8109 January, [facility] [place] [facility] [address] [id number] [place] [address]- 9252 January, [facility] [place] [facility] [address] [id number] [place] [address]- 6443 January, [facility] [place] [facility] [address] [id number] [place] [address]- 7765 January, [facility] [place] [facility] [address] [id number] [place] [address]- 8597 January, [facility] [place] [facility] [address] [id number] [place] [address]- 1264 January, [facility] [place] [facility] [address] [id number] [place] January, [facility] [place] [facility] [address] [id number] [place] [address]- 2672 January, [facility] [place] [facility] [address] [id number] [place] [address]- 0222 Dec, [facility] [place] [facility] [address] [id number] [place] [address]- 3067 Dec, [facility] [place] [facility] [address] [id number] [place] [address]- 2068 Dec, [facility] [place] [facility] [address] [id number] [place] [address]- 0945 Dec, [facility] [place] [facility] [address] [id number] [place] [address]- 4606 Dec, [facility] [place] [facility] [address] [id number] [place] [address]- 5321 Dec, [facility] [place] [facility] [address] [id number] [place] [address]- 8824 Nov, [facility] [place] [facility] [address] [id number] [place] [address]- 5148 Nov, [facility] [place] [facility] [address] [id number] [place] [address]- 7928 Nov, [facility] [place] [facility] [address] [id number] [place] [address]- 8743 Nov, [facility] [place] [facility] [address] [id number] [place] [address]- 2125 Nov, [facility] [place] [facility] [address] [id number] [place] [address]- 9229 Oct, [facility] [place] [facility] [address] [id number] [place] [address]- 5166 Oct, [facility] [place] [facility] [address] [id number] [place] [address]- 1216 Oct, [facility] [place] [facility] [address] [id number] [place] [address]- 0300 Oct, [facility] [place] [facility] [address] [id number] [place] [address]- 7253 Oct, [facility] [place] [facility] [address] [id number] [place] [address]- 7832 Oct, [facility] [place] [facility] [address] [id number] [place] [address]- 9172 Oct, [facility] [place] [facility] [address] [id number] [place] [address]- 9362 Oct, [facility] [place] [facility] [address] [id number] [place] [address]- 1051 Oct, [facility] [place] [facility] [address] [id number] [place] [address]- 2717 Oct, [facility] [place] [facility] [address] [id number] [place] [address]- 6949 Oct, [facility] [place] [facility] [address] [id number] [place] [address]- 6527 Sep, [facility] [place] [facility] [address] [id number] [place] [address]- 9570 Sep, [facility] [place] [facility] [address] [id number] [place] [address]- 6512 Sep, [facility] [place] [facility] [address] [id number] [place] [address]- 3836 Sep, [facility] [place] [facility] [address] [id number] [place] [address]- 2546 Aug, [facility] [address] [id number] [place] [address]- 5737 Aug, [facility] [place] [facility] [address] [id number] [place] [address] 2546 Jul, [facility] [address] [id number] [place] [address]- 5489 Jul, [facility] [place] [facility] [address] [id number] [place] [address]- 2540 Jul, [facility] [address] [id number] [place] [address]- 9795 Jul, [facility] [address] [id number] [place] [address]- 6986 Jul, [facility] [address] [id number] [place] [address]- 5599 Jun, [facility] [address] [id number] [place] [address]- 4221 Jun, [facility] [address] [id number] [place] [address]- 9226 May, [facility] [address] [id number] [place] [address]- 7936 Mar, [facility] [place] [facility] [address] [id number] [place] [address]- 2544 Mar, [facility] [place] [facility] [address] [id number] [place] [address]- 2546 Mar, [facility] [place] [facility] [address] [id number] [place] [address]- 3856 Feb, [facility] [place] [facility] [address] [id number] [place] [address]- 2546 January, [facility] [place] [facility] [address] [id number] [place] [address]- 2546 Dec, [facility] [address] [id number] [address] 6616 Nov, [facility] [id number] [address] 4896 Nov, [facility] [address] [id number] [address]- 5356 Nov, [facility] [id number] [address]- 4406 Oct, [facility] [id number] [address]- 5696 Oct, [facility] [id number] [address]- 2546 Oct, [facility] [id number] [address]- 2546 Oct, [facility] [address] [id number] [address]- 2546 Sep, IMMUNIZATIONS No Known Immunizations SOCIAL HISTORY Never Assessed REASON FOR VISIT Repository PLAN OF CARE VITAL SIGNS MEDICATIONS Medication Instructions Dosage Frequency Start Date End Date Duration Status Tizanidine HCl 4 MG Orally 3 times [...]
--- OUTSIDE RECORDS SUMMARY | 2018-09-23 22:02 | XMS REPORT ---
Author Author LUC TEE [facility] Address [address] [place] [address] Care Team Providers Care Chief Psychology Name Role Phone TEE CALLE Unavailable PROBLEMS Type Condition ICD9-CM Code RXR69-HG Code Onset Dates Condition Status SNOMED Code Problem Essential hypertension I10 Active 89613685 Problem Primary insomnia F51.01 Active 7303745 Problem Acquired hypothyroidism E03.9 Active 533492610 Problem Hypothyroidism (acquired) E03.9 Active 019455215 Problem Arthritis M19.90 Active 9664992 Problem Sciatica of right side M54.31 Active 67863616 Problem Migraine with aura and without status migrainosus, not intractable G43.109 Active 7346299 Problem Attention-deficit hyperactivity disorder, predominantly inattentive type F90.0 Active 83977218 Problem Current nonadherence to medical treatment Z91.19 Active 2141202 Problem LGSIL on Pap smear of cervix R87.612 Active 926480665 Problem Postoperative hypothyroidism E89.0 Active 20018365 Problem Generalized anxiety disorder F41.1 Active 36385884 Problem Bipolar 2 disorder F31.81 Active 56464761 Problem Abnormal liver function K76.89 Active 66639064 Problem Acne L70.9 Active 46415041 Problem Obesity E66.9 Active 189789260 Problem Panic disorder [episodic paroxysmal anxiety] without agoraphobia F41.0 Active 42626394 ALLERGIES No Information ENCOUNTERS Encounter Location Date Diagnosis [facility] [id number] [address] Jul, [facility] [id number], [place] [address] 34[address] 14 Jul, 2018 [facility] [id number], [place] [address] 56[address] Jun, [facility] [id number] [place] [address] 47386- 3256 Jun, [facility] [id number], [place] [address] 7704 Jun, [facility] [id number], [place] [address] 6939 Jun, [facility] [id number], [place] [address] 2681 Jun, [facility] [id number] [address] [address] Jun, [facility] [id number], [place] [address] 0015 May, [facility] [id number], [place] [address] 4545 May, Arthritis M19.90 [facility] [id number], [place] [address] 0650 Apr, [facility] [id number], [place] [address] 6661 Apr, Generalized anxiety disorder F41.1 ; Arthritis M19.90 ; Hypothyroidism (acquired) E03.9 and Lymph node enlargement R59.9 [facility] [id number] [address] 0966 Apr, Arthritis M19.90 and Sciatica of right side M54.31 [facility] [id number], [place] [address] 7106 Mar, Arthritis M19.90 ; Hypothyroidism (acquired) E03.9 and Lymph node enlargement R59.9 [place] [id number], [place] [address] 7191 Mar, Well woman exam with routine gynecological exam Z01.419 ; control counseling Z30.09 ; Acquired hypothyroidism E03.9 ; Sciatica of right side M54.31 ; Breast tenderness N64.4 and Generalized anxiety disorder F41.1 [facility] [id number] [address] 7709 Mar, [facility] [id number] [place] [address] 93358- 6445 Feb, Bipolar 2 disorder F31.81 ; Generalized anxiety disorder F41.1 ; Attention-deficit hyperactivity disorder, predominantly inattentive type F90.0 and Current nonadherence to medical treatment Z91.19 [facility] [id number] [place] [address] 47350- 1222 Feb, [facility] [id number] [place] [address] 43875- 6253 Nov, Normal physical exam Z00.00 and Enlarged lymph node R59.9 [facility] [facility] [id number] [place] [address] 46971- 2560 Nov, Enlarged lymph node R59.9 ; Abnormal liver function K76.89 and Hypothyroid E03.9 [facility] [id number] [place] [address] 96511- 7952 Oct, Bipolar 2 disorder F31.81 [facility] [id number] [place] [address] 06603- 5189 Oct, Sciatica of right side M54.31 and Essential hypertension I10 [facility] [id number] [place] [address] 50389- 6270 Oct, [facility] [id number] [place] [address] 27516- 2343 Aug, Hypothyroid E03.9 [facility] [id number] [place] [address] 21293- 6909 Aug, [facility] [id number] [place] [address] 63551- 8903 Aug, Bipolar 2 disorder F31.81 [facility] [id number] [place] [address] 29811- 0148 Aug, Abnormal liver function K76.89 [facility] [id number], [place] [address] 4315 29 Jul, 2017 Bipolar 2 disorder F31.81 [facility] [id number] [place] [address] 63863 -0410 Jul, [facility] [id number] [place] [address] 38026- 1368 14 Jul, 2017 Bipolar 2 disorder F31.81 ; Generalized anxiety disorder F41.1 ; Attention-deficit hyperactivity disorder, predominantly inattentive type F90.0 and Current nonadherence to medical treatment Z91.19 [facility] [id number] [place] [address] 95752 -0327 14 Jul, 2017 Essential hypertension I10 ; Other viral agents as the cause of diseases classified elsewhere B97.89 ; Acute upper respiratory infection, unspecified J06.9 and BMI 40.0-44.9, adult Z68.41 [place] [id number] [place] [address] 42787- 0004 13 Jul, 2017 [facility] [id number] [place] [address] 63557- 6388 Jul, [facility] [id number] [place] [address] 05801- 7549 Jun, [place] [place] [address] [place] [address] 20399- 7612 Jun, [facility] [id number] [place] [address] 39010- 2636 Jun, Dysuria R30.0 ; Urinary tract infection, site not specified N39.0 ; Hematuria, unspecified R31.9 ; Sciatica of right side M54.31 ; Migraine with aura and without status migrainosus, not intractable G43.109 ; Primary insomnia F51.01 ; Essential hypertension I10 and Acquired hypothyroidism E03.9 [facility] [id number] [place] [address] 40597- 5982 Jun, Bipolar 2 disorder F31.81 [facility] [id number] [place] [address] 42371- 4982 Jun, Bipolar 2 disorder F31.81 [facility] [id number] [place] [address] 44799- 7311 May, Sore throat J02.9 ; Acute serous otitis media of left ear, recurrence not specified H65.02 and Hypertension I10 [facility] [id number] [place] [address] 42616- 5578 May, Bipolar 2 disorder F31.81 [facility] [id number] [place] [address] 29743- 8306 Apr, [facility] [id number] [place] [address] 07397- 7414 Apr, Bipolar 2 disorder F31.81 [facility] [id number] [place] [address] 95963- 0938 Mar, [facility] [id number] [place] [address] 52593- 5480 Feb, Bipolar 2 disorder F31.81 ; Attention deficit disorder F90.0 ; COLLEEN (generalized anxiety disorder) F41.1 and Panic disorder [episodic paroxysmal anxiety] without agoraphobia F41.0 [facility] [id number] [place] [address] 08969- 8732 January, Bipolar 2 disorder F31.81 [facility] [id number] [place] [address] 63757- 1021 Dec, [facility] [id number] [place] [address] 47740- 7758 Dec, [facility] [id number] [place] [address] 98634- 9128 Dec, [facility] [id number] [place] [address] 09072- 5574 Dec, Generalized anxiety disorder F41.1 ; Bipolar 2 disorder F31.81 and Panic disorder [episodic paroxysmal anxiety] without agoraphobia F41.0 [facility] [id number], [place] [address]- 3830 Dec, [facility] [id number], [place] [address]- 8184 Dec, [facility] [id number], [place] [address]- 8452 Nov, [facility] [id number] [place] [address] 24275- 7359 Nov, [facility] [id number], [place] [address]- 2999 Nov, [facility] [id number] [place] [address] 55506- 5544 Oct, [facility] [id number] [address]- 8414 Oct, [facility] [id number], [place] [address]- 2287 Oct, [facility] [id number], [place] [address]- 6790 Oct, [facility] [id number], [place] [address]- 6486 Oct, [facility] [id number], [place] [address]- 3622 Sep, Bipolar 2 disorder F31.81 ; COLLEEN (generalized anxiety disorder) F41.1 ; Attention deficit disorder F90.0 and Panic disorder [episodic paroxysmal anxiety] without agoraphobia F41.0 [facility] [id number], [place] [address]- 3646 Sep, [facility] [id number], [place] [address]- 6841 Sep, [facility] [id number], [place] [address]- 1907 Sep, [facility] [id number], [place] [address]- 1437 Aug, [facility] [id number] [place] [address] 109052- 2972 Aug, [facility] [id number] [place] [address]- 4876 Aug, [facility] [id number] [place] [address] 97507- 1620 Aug, [facility] [id number] [place] [address] 70355- 7672 Jul, [facility] [id number] [place] [address] 88096- 9769 Jul, [facility] [id number] [place] [address] 69894- 7085 Jul, [facility] [id number] [place] [address] 86096- 1238 Jun, [facility] [id number] [place] [address] 53921- 5997 Jun, Bipolar 2 disorder F31.81 ; Attention deficit disorder F90.0 ; COLLEEN (generalized anxiety disorder) F41.1 and Panic disorder [episodic paroxysmal anxiety] without agoraphobia F41.0 [facility] [id number], [place] [address]- 0105 Jun, [facility] [id number] [place] [address] 42088- 2820 Jun, [facility] [address] [place] [address] 87889- 5449 Jun, Right foot pain M79.671 and Nausea and vomiting in adult R11.2 [facility] [id number], [place] [address]- 9482 May, [facility] [id number] [place] [address] 40885- 5507 May, Other sinusitis, unspecified chronicity J32.9 ; Environmental allergies Z91.09 ; Other chronic pain G89.29 and Sacrococcygeal disorders, not elsewhere classified M53.3 [facility] [id number] [place] [address] 28139 -9906 May, Acute non-recurrent pansinusitis J01.40 and Gastroenteritis K52.9 [facility] [id number] [place] [address] 15628- 5093 May, [facility] [id number] [place] [address] 23449- 1085 May, [facility] [address] 55879- 0413 Apr, Bronchitis J40 [facility] [id number] [place] [address] 62721- 3700 Apr, [facility] [id number] [place] [address] 54798- 9229 Apr, [facility] [id number] [place] [address] 65812- 4999 Apr, [facility] [id number] [place] [address] 56498 -8671 Apr, Nausea and vomiting in adult R11.2 [facility] [id number] [place] [address] 55234- 3148 Apr, Nausea and vomiting in adult R11.2 [facility] [id number] [place] [address] 08753- 8330 Apr, Bipolar 2 disorder F31.81 ; Generalized anxiety disorder F41.1 ; Panic disorder [episodic paroxysmal anxiety] without agoraphobia F41.0 ; Attention deficit disorder F90.0 and COLLEEN (generalized anxiety disorder) F41.1 [facility] [id number] [place] [address] 19739- 1838 Apr, [facility] [address], [place] [address]- 2664 Mar, [facility] [id number] [place] [address] 86923- 5803 Mar, [facility] [id number] [place] [address] 58651- 8136 Mar, [facility] [id number] [place] [address] 88820- 3938 Mar, Bipolar 2 disorder F31.81 ; Attention deficit disorder F90.0 ; COLLEEN (generalized anxiety disorder) F41.1 and Panic disorder [episodic paroxysmal anxiety] without agoraphobia F41.0 [facility] [id number] [place] [address] 57439- 9415 Mar, [facility] [id number] [place] [address] 43532- 9084 Feb, Bipolar 2 disorder F31.81 ; Generalized anxiety disorder F41.1 and Attention deficit disorder F90.0 [facility] [id number] [place] [address] 50262- 2226 Feb, Generalized anxiety disorder F41.1 [facility] [id number] [place] [address] 23557- 9783 Feb, Generalized anxiety disorder F41.1 ; Attention deficit disorder F90.0 and Bipolar 2 disorder F31.81 [facility] [id number] [place] [address] 06289- 3853 Feb, Bipolar 2 disorder F31.81 ; Generalized anxiety disorder F41.1 ; Attention deficit disorder F90.0 and Insomnia, unspecified type G47.00 [facility] [address] [place] [address] 01829- 3172 Feb, Excessive sweating R61 and Breast lump in upper outer quadrant N63 [facility] [id number], [place] [address] -1527 January, Low back pain M54.5 ; Other chronic pain G89.29 and Urinary tract infection, site unspecified N39.0 [facility] [id number] [place] [address] 33835- 5074 January, Bipolar II disorder F31.81 [facility] [address] 81433- 2617 January, [place] [address] 17007- 8547 January, Insomnia, unspecified type G47.00 and Grief F43.20 [place] [address] 16135- 7427 January, [place] [address] 69282- 5475 Dec, [place] [address] 02158- 6707 Dec, [facility] [address] 12891- 3879 Dec, Bipolar 2 disorder F31.81 ; Generalized anxiety disorder F41.1 and Attention deficit disorder F90.0 [place] [address] 04621- 7264 Dec, Sinusitis J32.9 [place] [address] 57655- 3833 Dec, Sinusitis J32.9 and Hypothyroid E03.9 [facility] [id number] [place] [address] 55966- 8625 Dec, [facility] [address] 84634 -9273 Dec, Cough R05 and Allergic rhinitis J30.9 [facility] [id number] [place] [address] 58287- 5398 Nov, Hypertension I10 ; Obesity E66.9 and Acne L70.9 [place] [id number], [place] [address]- 7675 Nov, [facility] [id number] [place] [address] 53019- 4071 Oct, [facility] [id number] [place] [address] 65877- 9271 Oct, [facility] [id number] [place] [address] 18363- 6734 Oct, [facility] [id number] [place] [address] 41889- 9404 Oct, [facility] [id number] [place] [address] 82685- 4205 Sep, Lymphadenitis I88.9 ; Essential hypertension I10 and Acne, unspecified acne type L70.9 [facility] [id number] [place] [address] 94209- 2057 Sep, [facility] [id number] [place] [address] 51214- 6995 Sep, [facility] [id number] [place] [address] 80169- 2839 Sep, [facility] [id number] [place] [address] 30765- 3435 Sep, Acquired hypothyroidism E03.9 [facility] [id number] [place] [address] 59098- 6115 Aug, Acquired hypothyroidism E03.9 [facility] [address], [place] [address]- 1340 Aug, Furuncle L02.92 [facility] [address] [place] [address] 87113- 5745 Aug, [facility] [address], [place] [address]- 7343 Aug, Bipolar 2 disorder F31.81 ; Generalized anxiety disorder F41.1 ; Attention deficit disorder F90.0 and Obesity E66.9 [place] [id number] [place] [address] 16429- 5854 Aug, [place] [id number] [place] [address] 27614- 5111 Aug, [place] [id number] [place] [address] 24114- 2512 Aug, Acquired hypothyroidism E03.9 [place] [id number] [place] [address] 54727- 7515 Jul, Acquired hypothyroidism E03.9 ; Upper respiratory tract infection, unspecified type J06.9 and Nonintractable migraine, unspecified migraine type G43.009 [place] [id number] [place] [address] 20644- 9150 Jun, Acute pharyngitis, unspecified J02.9 [place] [address] [place] [id number] [place] [address] 49530- 6601 May, Bipolar II disorder 296.89 ; Attention deficit disorder of childhood without mention of hyperactivity 314.00 ; Generalized anxiety disorder 300.02 and Morbid obesity with BMI of 45.0-49.9, adult 278.01 [place] [address] [place] [id number] [place] [address] 34432- 7988 May, Sinusitis 473.9 [place] [address] [place] [id number] [place] [address] 07429- 9708 Apr, [place] [address] [place] [id number] [place] [address] 97572- 3568 Mar, [place] [address] [place] [id number] [place] [address] 05320- 7543 Mar, Bipolar II disorder 296.89 ; Generalized anxiety disorder 300.02 ; Obesity, unspecified 278.00 and Attention deficit disorder 314.00 [place] [address] [place] [id number] [place] [address] 91385- 3738 Feb, [facility] [place] [facility] [address] [id number] [place] [address] January, [facility] [place] [facility] [address] [id number] [place] [address] 28[address] January, [facility] [place] [facility] [address] [id number] [place] [address] January, [facility] [place] [facility] [address] [id number] [place] [address] January, [facility] [place] [facility] [address] [id number] [place] [address] 2013 Dec, [facility] [place] [facility] [address] [id number] [place] [address] Dec, [facility] [place] [facility] [address] [id number] [place], [place] [address] 30 Nov, 2014 [facility] [place] [facility] [address] [id number] [place] [address] 0825 18 Nov, 2014 [facility] [place] [facility] [address] [id number] [place] [address] 3349 18 Nov, 2014 [facility] [place] [facility] [address] [id number] [place] [address] 6163 Nov, [facility] [place] [facility] [address] [id number] [place] [address] 4913 Nov, [facility] [place] [facility] [address] [id number] [place] [address]- 6481 11 Nov, 2014 [facility] [place] [facility] [address] [id number] [place] [address]- 1582 11 Nov, 2014 [facility] [place] [facility] [address] [id number] [place] [address]- 4659 11 Nov, 2014 [facility] [place] [facility] [address] [id number] [place] [address]- 0096 11 Nov, 2014 [facility] [place] [facility] [address] [id number] [place] [address]- 0365 Nov, [facility] [place] [facility] [address] [id number] [place] [address]- 2300 Nov, [facility] [place] [facility] [address] [id number] [place] [address] 0637 Nov, [facility] [place] [facility] [address] [facility] [id number] [place] [address] 5803 Nov, [facility] [place] [facility] [address] [id number] [place] [address]- 7136 Nov, [facility] [place] [facility] [address] [id number] [place] [address]- 0241 Oct, 2014 [facility] [place] [facility] [address] [id number] [place] [address]- 4771 Oct, 2014 [facility] [place] [facility] [address] [facility] [id number] [place] [address]- 8989 Oct, 2014 [facility] [place] [facility] [address] [id number] [place] [address]- 8762 Oct, 2014 [facility] [place] [facility] [address] [facility] [id number] [place] [address]- 5339 Oct, 2014 [facility] [place] [facility] [address] [facility] [id number] [place] [address]- 8405 Oct, 2014 [facility] [place] [facility] [address] [facility] [id number] [place] [address]- 4525 Oct, 2014 [facility] [place] [facility] [address] [facility] [id number] [place] [address]- 6929 Oct, 2014 [facility] [place] [facility] [address] [facility] [id number] [place] [address]- 1662 Oct, 2014 [facility] [place] [facility] [address] [facility] [id number] [place] [address]- 2408 Oct, 2014 [facility] [place] [facility] [address] [facility] [id number] [place] [address]- 2789 03 Fe2014 [facility] [place] [facility] [address] [id number] [place] [address]- 1135 Oct, [facility] [place] [facility] [address] [id number] [place] [address]- 7652 Sep, [facility] [place] [facility] [address] [id number] [place] [address]- 2135 Sep, [facility] [place] [facility] [address] [id number] [place] [address]- 7878 Sep, [facility] [place] [facility] [address] [id number] [place] [address]- 9743 Sep, [facility] [place] [facility] [address] [id number] [place] [address]- 4351 Sep, [facility] [place] [facility] [address] [id number] [place] [address]- 4471 Sep, [facility] [place] [facility] [address] [id number] [place] [address]- 8681 Sep, [facility] [place] [facility] [address] [id number] [place] [address]- 2302 Sep, [facility] [place] [facility] [address] [id number] [place] [address]- 3716 Aug, [facility] [place] [facility] [address] [id number] [place] [address]- 0749 Aug, [facility] [place] [facility] [address] [id number] [place] [address]- 6451 30 Aug, 2014 [facility] [place] [facility] [address] [id number] [place] [address]- 2732 Aug, [facility] [place] [facility] [address] [id number] [place] [address]- 7277 Aug, [facility] [place] [facility] [address] [id number] [place] [address]- 3645 Aug, [facility] [place] [facility] [address] [id number] [place] [address]- 6383 Aug, [facility] [place] [facility] [address] [id number] [place] [address]- 0473 Aug, [facility] [place] [facility] [address] [id number] [place] [address]- 6269 Aug, [facility] [place] [facility] [address] [id number] [place] [address]- 5910 Aug, [facility] [place] [facility] [address] [id number] [place] [address]- 3323 Aug, [facility] [place] [facility] [address] [id number] [place] [address]- 9671 Aug, [facility] [place] [facility] [address] [id number] [place] [address]- 2814 Aug, [facility] [place] [facility] [address] [id number] [place] [address]- 6381 Aug, [facility] [place] [facility] [address] [id number] [place] [address]- 6603 Jul, [facility] [place] [facility] [address] [id number] [place] [address]- 3624 Jul, [facility] [place] [facility] [address] [id number] [place] [address]- 5183 Jul, [facility] [place] [facility] [address] [id number] [place] [address]- 1308 Jul, [facility] [place] [facility] [address] [id number] [place] [address]- 0861 Jul, [facility] [place] [facility] [address] [id number] [place] [address]- 3669 Jul, [facility] [place] [facility] [address] [id number] [place] [address]- 4547 Jul, [facility] [place] [facility] [address] [id number] [place] [address]- 7108 Jul, [facility] [place] [facility] [address] [id number] [place] [address]- 5602 04 Jul, 2014 [facility] [place] [facility] [address] [id number] [place] [address]- 1253 04 Jul, 2014 [facility] [place] [facility] [address] [id number] [place] [address]- 4911 Jul, [facility] [place] [facility] [address] [id number] [place] [address]- 7041 Jul, [facility] [place] [facility] [address] [id number] [place] [address]- 9452 16 Jun, 2014 [facility] [place] [facility] [address] [id number] [place] [address]- 6094 16 Jun, 2014 [facility] [place] [facility] [address] [id number] [place] [address]- 9796 15 Jun, 2014 [facility] [place] [facility] [address] [id number] [place] [address]- 6047 14 Jun, 2014 [facility] [place] [facility] [address] [id number] [place] [address]- 6534 14 Jun, 2014 [facility] [place] [facility] [address] [id number] [place] [address]- 9142 14 Jun, 2014 [facility] [place] [facility] [address] [id number] [place] [address]- 7110 14 Jun, 2014 [facility] [place] [facility] [address] [id number] [place] [address]- 6171 13 Jun, 2014 [facility] [place] [facility] [address] [id number] [place] [address]- 7699 10 Jun, 2014 [facility] [place] [facility] [address] [id number] [place] [address]- 4701 10 Jun, 2014 [facility] [place] [facility] [address] [id number] [place] [address]- 7667 09 Jun, 2014 [facility] [place] [facility] [address] [id number] [place] [address]- 4184 09 Jun, 2014 [facility] [place] [facility] [address] [id number] [place] [address]- 5706 06 Jun, 2014 [facility] [place] [facility] [address] [id number] [place] [address]- 7356 06 Jun, 2014 [facility] [place] [facility] [address] [id number] [place] [address]- 1599 16 May, 2013 [facility] [place] [facility] [address] [id number] [place] [address]- 4167 15 May, 2013 [facility] [place] [facility] [address] [id number] [place] [address]- 6617 15 May, 2013 [facility] [place] [facility] [address] [id number] [place] [address]- 7563 15 May, 2013 [facility] [place] [facility] [address] [id number] [place] [address]- 9162 15 May, 2013 [facility] [place] [facility] [address] [id number] [place] [address]- 3292 15 May, 2013 [facility] [place] [facility] [address] [id number] [place] [address]- 2098 15 May, 2013 [facility] [place] [facility] [address] [id number], [place] [address]- 5587 12 May, 2014 [facility] [place] [facility] [address] [id number], [place] [address]- 3721 12 May, 2013 [facility] [place] [facility] [address] [id number], [place] [address]- 8600 10 May, 2013 [facility] [place] [facility] [address] [id number] [place] [address]- 1720 10 May, 2013 [facility] [place] [facility] [address] [id number] [place] [address]- 0364 02 May, 2013 [facility] [place] [facility] [address] [id number], [place] [address]- 7318 02 May, 2013 [facility] [place] [facility] [address] [id number], [place] [address]- 8643 May, [facility] [place] [facility] [address] [id number] [place] [address]- 4158 May, [facility] [place] [facility] [address] [id number] [place] [address]- 0007 Apr, [facility] [place] [facility] [address] [id number] [place] [address]- 0529 Apr, [facility] [place] [facility] [address] [id number] [place] [address]- 9698 Apr, [facility] [place] [facility] [address] [id number] [place] [address]- 8001 Apr, [facility] [place] [facility] [address] [id number] [place] [address]- 0701 Apr, [facility] [place] [facility] [address] [id number] [place] [address]- 7907 Apr, [facility] [place] [facility] [address] [id number] [place] [address]- 1595 Apr, [facility] [place] [facility] [address] [id number] [place] [address]- 9304 Apr, [facility] [place] [facility] [address] [id number] [place] [address]- 3951 Apr, [facility] [place] [facility] [address] [id number] [place] [address]- 3478 Mar, [facility] [place] [facility] [address] [id number] [place] [address]- 6143 Mar, [facility] [place] [facility] [address] [id number] [place] [address]- 5049 Mar, [facility] [place] [facility] [address] [id number] [place] [address]- 8170 Mar, [facility] [place] [facility] [address] [id number] [place] [address]- 5824 Mar, [facility] [place] [facility] [address] [id number] [place] [address]- 7955 Mar, 2013 [facility] [place] [facility] [address] [id number] [place] [address]- 3012 Mar, 2013 [facility] [place] [facility] [address] [id number] [place] [address]- 1509 Mar, 2013 [facility] [place] [facility] [address] [id number] [place] [address]- 0494 Mar, 2013 [facility] [place] [facility] [address] [id number] [place] [address]- 9371 Mar, 2013 [facility] [place] [facility] [address] [id number] [place] [address]- 1769 Mar, 2013 [facility] [place] [facility] [address] [id number] [place] [address]- 0349 Mar, 2013 [facility] [place] [facility] [address] [id number] [place] [address]- 7212 Mar, 2013 [facility] [place] [facility] [address] [id number] [place] [address]- 6211 Mar, 2013 [facility] [place] [facility] [address] [id number] [place] [address]- 5268 Mar, 2013 [facility] [place] [facility] [address] [id number] [place] [address]- 6424 Mar, 2013 [facility] [place] [facility] [address] [id number] [place] [address]- 0090 Mar, [facility] [place] [facility] [address] [id number] [place] [address]- 8490 Mar, [facility] [place] [facility] [address] [id number] [place] [address]- 4924 Feb, [facility] [place] [facility] [address] [id number] [place] [address]- 5167 Feb, [facility] [place] [facility] [address] [id number] [place] [address]- 3155 Feb, [facility] [place] [facility] [address] [id number] [place] [address]- 6683 Feb, [facility] [place] [facility] [address] [id number] [place] [address]- 0809 Feb, [facility] [place] [facility] [address] [id number] [place] [address]- 5998 Feb, [facility] [place] [facility] [address] [id number] [place] [address]- 9217 Feb, [facility] [place] [facility] [address] [id number] [place] [address]- 1695 Feb, [facility] [place] [facility] [address] [id number] [place] [address]- 5509 Feb, [facility] [place] [facility] [address] [id number] [place] [address]- 2119 Feb, [facility] [place] [facility] [address] [id number] [place] [address]- 1729 January, [facility] [place] [facility] [address] [id number] [place] [address]- 1089 January, [facility] [place] [facility] [address] [id number] [place] [address]- 3785 January, [facility] [place] [facility] [address] [id number] [place] [address]- 1165 January, [facility] [place] [facility] [address] [id number], [place] [address]- 9998 January, [facility] [place] [facility] [address] [id number] [place] [address]- 8760 January, [facility] [place] [facility] [address] [id number] [place] [address]- 0416 January, [facility] [place] [facility] [address] [id number] [place] [address]- 5935 January, [facility] [place] [facility] [address] [id number] [place] [address]- 1411 January, [facility] [place] [facility] [address] [id number] [place] [address]- 0145 January, [facility] [place] [facility] [address] [id number] [place] [address]- 8653 January, [facility] [place] [facility] [address] [id number] [place] [address]- 6155 January, [facility] [place] [facility] [address] [id number] [place] [address]- 4696 January, [facility] [place] [facility] [address] [id number] [place] [address]- 3067 January, [facility] [place] [facility] [address] [id number] [place] [address]- 4171 January, [facility] [place] [facility] [address] [id number] [place] [address]- 1259 Dec, [facility] [place] [facility] [address] [id number] [place] [address]- 6336 Dec, [facility] [place] [facility] [address] [id number] [place] [address]- 3472 Dec, [facility] [place] [facility] [address] [id number] [place] [address]- 5750 Dec, [facility] [place] [facility] [address] [id number] [place] [address]- 2601 Dec, [facility] [place] [facility] [address] [id number] [place] [address]- 2474 Dec, [facility] [place] [facility] [address] [id number] [place] [address]- 7386 Nov, [facility] [place] [facility] [address] [id number] [place] [address]- 0107 Nov, [facility] [place] [facility] [address] [id number] [place] [address]- 5786 Nov, [facility] [place] [facility] [address] [id number] [place] [address]- 2787 Nov, [facility] [place] [facility] [address] [id number] [place] [address]- 5983 Nov, [facility] [place] [facility] [address] [id number] [place] [address]- 6416 Oct, [facility] [place] [facility] [address] [id number] [place] [address]- 1581 Oct, [facility] [place] [facility] [address] [id number] [place] [address]- 4661 Oct, [facility] [place] [facility] [address] [id number] [place] [address]- 0878 Oct, [facility] [place] [facility] [address] [id number] [place] [address]- 5310 Oct, [facility] [place] [facility] [address] [id number] [place] [address]- 1002 Oct, [facility] [place] [facility] [address] [id number] [place] [address]- 7627 Oct, [facility] [place] [facility] [address] [id number] [place] [address]- 5782 Oct, [facility] [place] [facility] [address] [id number] [place] [address]- 8931 Oct, [facility] [place] [facility] [address] [id number] [place] [address]- 3419 Oct, [facility] [place] [facility] [address] [id number] [place] [address]- 7741 Oct, [facility] [place] [facility] [address] [id number] [place] [address]- 5056 Sep, [facility] [place] [facility] [address] [id number] [place] [address]- 4619 Sep, [facility] [place] [facility] [address] [id number] [place] [address]- 0359 14 Sep, 2013 [facility] [address] [id number] [place] [address]- 9207 Sep, [facility] [address] [id number] [place] [address] 2546 Aug, [facility] [address] [id number] [place] [address]- 3127 Aug, [facility] [address] [id number] [place] [address]- 6975 Jul, [facility] [address] [id number] [place] [address]- 7318 Jul, [facility] [address] [id number] [place] [address]- 0165 Jul, [facility] [address] [id number] [place] [address]- 0679 Jul, [facility] [address] [id number] [place] [address]- 1368 Jul, [facility] [address] [id number] [place] [address]- 0956 Jun, [facility] [address] [id number] [place] [address]- 9608 Jun, [facility] [place] [facility] [address] [id number] [place] [address]- 5335 May, [facility] [address] [id number] [place] [address]- 2549 Mar, [facility] [place] [facility] [address] [id number] [place] [address]- 2549 Mar, [facility] [place] [facility] [address] [id number] [place] [address]- 2546 Mar, [facility] [place] [facility] [address] [id number] [place] [address]- 9398 Feb, [facility] [address] [id number], [place] [address] 4356 January, [facility] [id number], [place] [address]- 1176 Dec, [facility] [id number], [place] [address]- 4876 Nov, [facility] [id number], [place] [address]- 2516 Nov, [facility] [id number], [place] [address]- 6796 Nov, [facility] [id number], [place] [address]- 3886 Oct, [facility] [id number], [place] [address]- 6716 Oct, [facility] [id number], [place] [address]- 0916 Oct, [facility] [id number], [place] [address]- 9136 Oct, [facility] [id number], [place] [address]- 0166 Sep, IMMUNIZATIONS No Known Immunizations SOCIAL HISTORY Never Assessed REASON FOR VISIT medications PLAN OF CARE VITAL SIGNS MEDICATIONS Medication Instructions Dosage Frequency Start Date End Date Duration Status Amitriptyline HCl 50 mg Orally Once a day for migraine and sleep Take 1/2 tab for three nights then increase to 1 whole tablet 30 Active HydrOXYzine Pamoate 50 mg Orally 2 times a day as needed for anxiety 1 capsule as needed 30 Active Guanfacine HCl 2 MG TAKE ONE-HALF TABLET BY MOUTH ONCE DAILY AM; ONE-HALF TABLET AT 2:00PM AND ONE TABLET AT BEDTIME 30 Active Citalopram Hydrobromide 20 mg Orally Once a day 1 tablet 24h Feb, 30 day(s) Active RESULTS No Results PROCEDURES No Known [...] History Panic attack, sob 03/2015 Hospitalization History [facility] 2005
--- OUTSIDE RECORDS SUMMARY | 2018-09-23 22:02 | XMS REPORT ---
Author Author ALLEN PATRICK Organization [facility] Address [address] [place] [address] Care Team Providers Care Banquet Steward Name Role Phone ALLEN PATRICK Unavailable PROBLEMS Type Condition ICD9-CM Code [id number] Code Onset Dates Condition Status SNOMED Code Problem Essential hypertension I10 Active 38625708 Problem Primary insomnia F51.01 Active 4381067 Problem Acquired hypothyroidism E03.9 Active 505772907 Problem Hypothyroidism (acquired) E03.9 Active 429128811 Problem Arthritis M19.90 Active 6298981 Problem Sciatica of right side M54.31 Active 48399254 Problem Migraine with aura and without status migrainosus, not intractable G43.109 Active 1835541 Problem Attention-deficit hyperactivity disorder, predominantly inattentive type F90.0 Active 18037100 Problem Current nonadherence to medical treatment Z91.19 Active 4515898 Problem LGSIL on Pap smear of cervix R87.612 Active 866007525 Problem Postoperative hypothyroidism E89.0 Active 24083457 Problem Generalized anxiety disorder F41.1 Active 17632336 Problem Bipolar 2 disorder F31.81 Active 68667915 Problem Abnormal liver function K76.89 Active 32402451 Problem Acne L70.9 Active 74045195 Problem Obesity E66.9 Active 269817584 Problem Panic disorder [episodic paroxysmal anxiety] without agoraphobia F41.0 Active 25296171 ALLERGIES No Information ENCOUNTERS Encounter Location Date Diagnosis [facility] [id number], [place] [address] Jul, [facility] [address] [address] 8[address] 14 Jul, 2018 [facility] [address], [place] [address] 8590 31 Jun, 2018 [facility] [id number] [place] [address] 63883- 8741 Jun, [facility] [address] [address] 4013 Jun, [facility] [id number] [place] [address] 84420- 6342 Jun, [facility] [id number] [place] [address] 61776- 1394 Jun, [facility] [id number] [place] [address] 49385- 1354 Jun, [facility] [id number] [place] [address] 17109- 4989 May, [facility] [id number] [place] [address] 68043- 9104 May, Arthritis M19.90 [facility] [id number] [place] [address] 78590- 5922 Apr, [facility] [id number] [place] [address] 56620- 8336 Apr, Generalized anxiety disorder F41.1 ; Arthritis M19.90 ; Hypothyroidism (acquired) E03.9 and Lymph node enlargement R59.9 [id number] [place] [address] 11527- 6803 Apr, Arthritis M19.90 and Sciatica of right side M54.31 [facility] [id number] [place] [address] 59231- 7826 Mar, Arthritis M19.90 ; Hypothyroidism (acquired) E03.9 and Lymph node enlargement R59.9 [place] [id number] [place] [address] 29681- 2630 Mar, Well woman exam with routine gynecological exam Z01.419 ; control counseling Z30.09 ; Acquired hypothyroidism E03.9 ; Sciatica of right side M54.31 ; Breast tenderness N64.4 and Generalized anxiety disorder F41.1 [place] [id number] [place] [address] 84411- 0564 Mar, [facility] [id number] [place] [address] 04910- 2989 Feb, Bipolar 2 disorder F31.81 ; Generalized anxiety disorder F41.1 ; Attention-deficit hyperactivity disorder, predominantly inattentive type F90.0 and Current nonadherence to medical treatment Z91.19 [place] [id number] [place] [address] 23048- 7980 07 Feb, 2018 [facility] [id number] [place] [address] 04257- 5502 Nov, Normal physical exam Z00.00 and Enlarged lymph node R59.9 [place] [id number] [place] [address] 92871- 6214 Nov, Enlarged lymph node R59.9 ; Abnormal liver function K76.89 and Hypothyroid E03.9 [place] [id number] [place] [address] 87960- 6600 Oct, Bipolar 2 disorder F31.81 [place] [id number] [place] [address] 45143- 0950 Oct, Sciatica of right side M54.31 and Essential hypertension I10 [place] [id number] [place] [address] 04717- 1397 Oct, [facility] [id number] [place] [address] 26672- 9040 Aug, Hypothyroid E03.9 [facility] [id number] [place] [address] 57896- 0006 Aug, [facility] [id number] [place] [address] 65062- 7461 Aug, Bipolar 2 disorder F31.81 [facility] [address], [place] [address] 0589 Aug, Abnormal liver function K76.89 [place] [id number] [address] 3120 29 Jul, 2017 Bipolar 2 disorder F31.81 [facility] [id number] [place] [address] 17054 -3470 22 Jul, 2017 [facility] [id number] [place] [address] 01115- 6895 14 Jul, 2017 Bipolar 2 disorder F31.81 ; Generalized anxiety disorder F41.1 ; Attention-deficit hyperactivity disorder, predominantly inattentive type F90.0 and Current nonadherence to medical treatment Z91.19 [facility] [id number] [place] [address] 01600 -0557 14 Jul, 2017 Essential hypertension I10 ; Other viral agents as the cause of diseases classified elsewhere B97.89 ; Acute upper respiratory infection, unspecified J06.9 and BMI 40.0-44.9, adult Z68.41 [place] [id number] [place] [address] 46569- 9382 13 Jul, 2017 [place] [id number] [place] [address] 82878- 1818 07 Jul, 2017 [place] [id number] [place] [address] 48772- 1751 Jun, [place] [id number] [place] [address] 43367- 3889 Jun, [place] [id number] [place] [address] 76715- 4712 Jun, Dysuria R30.0 ; Urinary tract infection, site not specified N39.0 ; Hematuria, unspecified R31.9 ; Sciatica of right side M54.31 ; Migraine with aura and without status migrainosus, not intractable G43.109 ; Primary insomnia F51.01 ; Essential hypertension I10 and Acquired hypothyroidism E03.9 [place] [id number] [place] [address] 81730- 2041 03 Jun, 2017 Bipolar 2 disorder F31.81 [place] [address] [place] [address] 1934 Jun, Bipolar 2 disorder F31.81 [facility] [id number] [place] [address] 39996- 2485 May, Sore throat J02.9 ; Acute serous otitis media of left ear, recurrence not specified H65.02 and Hypertension I10 [facility] [id number] [place] [address] 72169- 1413 May, Bipolar 2 disorder F31.81 [facility] [id number] [place] [address] 13495- 3773 Apr, [facility] [id number] [place] [address] 47640- 8408 Apr, Bipolar 2 disorder F31.81 [facility] [id number] [place] [address] 73249- 6515 Mar, [facility] [id number] [place] [address] 11141- 5408 Feb, Bipolar 2 disorder F31.81 ; Attention deficit disorder F90.0 ; COLLEEN (generalized anxiety disorder) F41.1 and Panic disorder [episodic paroxysmal anxiety] without agoraphobia F41.0 [facility] [id number] [place] [address] 11994- 5039 January, Bipolar 2 disorder F31.81 [facility] [id number] [place] [address] 16961- 3850 Dec, [facility] [id number] [place] [address] 08172- 9324 Dec, [facility] [id number] [place] [address] 14025- 7162 Dec, [facility] [id number] [place] [address] 28563- 0934 Dec, Generalized anxiety disorder F41.1 ; Bipolar 2 disorder F31.81 and Panic disorder [episodic paroxysmal anxiety] without agoraphobia F41.0 [facility] [address], [place] [address]- 4643 Dec, [facility] [id number] [place] [address] 39409- 6649 Dec, [facility] [id number] [place] [address]- 3433 Nov, [facility] [id number] [place] [address] 69635- 8578 Nov, [facility] [id number] [place] [address] 86550- 9792 Nov, [facility] [id number] [place] [address] 89153- 9006 Oct, [facility] [id number] [place] [address] 13567- 4517 Oct, [facility] [id number] [place] [address] 31176- 6176 Oct, [facility] [id number] [place] [address] 78968- 9242 Oct, [facility] [id number] [place] [address] 77851- 8390 Oct, [facility] [address] [address]- 0435 Sep, Bipolar 2 disorder F31.81 ; COLLEEN (generalized anxiety disorder) F41.1 ; Attention deficit disorder F90.0 and Panic disorder [episodic paroxysmal anxiety] without agoraphobia F41.0 [facility] [address], [place] [address]- 9786 Sep, [facility] [id number] [place] [address] 04046- 3676 Sep, [facility] [address], [place] [address]- 4950 Sep, [facility] [address], [place] [address]- 0915 Aug, [facility] [address] 7413 Aug, [facility] [address], [place] [address]- 7582 Aug, [facility] [id number] [place] [address] 543999- 3996 Aug, [facility] [id number] [place] [address] 80667- 4601 Jul, [facility] [id number] [place] [address] 54547- 9335 Jul, [facility] [id number] [place] [address] 69877- 7156 Jul, [facility] [id number] [place] [address] 09460- 3898 Jun, [facility] [address], [place] [address]- 9347 Jun, Bipolar 2 disorder F31.81 ; Attention deficit disorder F90.0 ; COLLEEN (generalized anxiety disorder) F41.1 and Panic disorder [episodic paroxysmal anxiety] without agoraphobia F41.0 [facility] [address], [place] [address]- 2651 Jun, [facility] [address], [place] [address]- 2348 Jun, [facility] [address], [place] [address]- 1052 Jun, Right foot pain M79.671 and Nausea and vomiting in adult R11.2 [facility] [address], [place] [address]- 1374 May, [facility] [address], [place] [address]- 4111 May, Other sinusitis, unspecified chronicity J32.9 ; Environmental allergies Z91.09 ; Other chronic pain G89.29 and Sacrococcygeal disorders, not elsewhere classified M53.3 [facility] [id number] [place] [address] 79703 -9345 May, Acute non-recurrent pansinusitis J01.40 and Gastroenteritis K52.9 [facility] [id number] [place] [address] 36357- 8654 May, [facility] [id number] [place] [address] 96920- 1062 May, [facility] [id number] [place] [address] 73276- 5535 Apr, Bronchitis J40 [facility] [id number] [place] [address] 17933- 3251 Apr, [facility] [address] 18743- 8180 Apr, [facility] [id number] [place] [address] 42340- 6991 Apr, [facility] [id number] [place] [address] 64885 -9333 Apr, Nausea and vomiting in adult R11.2 [facility] [id number] [place] [address] 13904- 4564 Apr, Nausea and vomiting in adult R11.2 [facility] [id number] [place] [address] 28069- 4170 Apr, Bipolar 2 disorder F31.81 ; Generalized anxiety disorder F41.1 ; Panic disorder [episodic paroxysmal anxiety] without agoraphobia F41.0 ; Attention deficit disorder F90.0 and COLLEEN (generalized anxiety disorder) F41.1 [facility] [id number] [place] [address] 06804- 0181 Apr, [facility] [address] [address]- 2108 Mar, [facility] [address], [place] [address]- 3766 Mar, [facility] [id number] [place] [address] 10410- 6822 Mar, [facility] [id number] [place] [address] 26564- 6844 Mar, Bipolar 2 disorder F31.81 ; Attention deficit disorder F90.0 ; COLLEEN (generalized anxiety disorder) F41.1 and Panic disorder [episodic paroxysmal anxiety] without agoraphobia F41.0 [facility] [id number] [place] [address] 20761- 7515 Mar, [facility] [id number] [place] [address] 55373- 6285 Feb, Bipolar 2 disorder F31.81 ; Generalized anxiety disorder F41.1 and Attention deficit disorder F90.0 [facility] [address] [place] [address] 78807- 6665 Feb, Generalized anxiety disorder F41.1 [facility] [id number] [place] [address] 20400- 1620 Feb, Generalized anxiety disorder F41.1 ; Attention deficit disorder F90.0 and Bipolar 2 disorder F31.81 [facility] [address] [place] [address] 31883- 7150 Feb, Bipolar 2 disorder F31.81 ; Generalized anxiety disorder F41.1 ; Attention deficit disorder F90.0 and Insomnia, unspecified type G47.00 [facility] [address] [place] [address] 97782- 5011 Feb, Excessive sweating R61 and Breast lump in upper outer quadrant N63 [facility] [address], [place] [address] -9085 January, Low back pain M54.5 ; Other chronic pain G89.29 and Urinary tract infection, site unspecified N39.0 [facility] [id number] [place] [address] 52814- 4516 January, Bipolar II disorder F31.81 [facility] [id number] [place] [address] 07941- 7613 January, [facility] [address] 47975- 8918 January, Insomnia, unspecified type G47.00 and Grief F43.20 [facility] [id number] [place] [address] 14719- 6425 January, [place] [address] 49582- 2345 Dec, [facility] [address] 19945- 5035 Dec, [facility] [address] 61634- 2028 Dec, Bipolar 2 disorder F31.81 ; Generalized anxiety disorder F41.1 and Attention deficit disorder F90.0 [place] [id number] [place] [address] 12543- 0639 Dec, Sinusitis J32.9 [place] [address] 82812- 9598 Dec, Sinusitis J32.9 and Hypothyroid E03.9 [facility] [id number] [place] [address] 29397- 0100 Dec, [facility] [id number] [place] [address] 53627 -3870 Dec, Cough R05 and Allergic rhinitis J30.9 [facility] [id number] [place] [address] 13215- 4168 Nov, Hypertension I10 ; Obesity E66.9 and Acne L70.9 [place] [address] [address]- 6187 Nov, [facility] [id number] [place] [address] 60531- 4941 Oct, [facility] [id number] [place] [address] 35044- 5024 Oct, [facility] [id number] [place] [address] 89802- 6883 Oct, [facility] [id number] [place] [address] 99217- 7821 Oct, [facility] [id number] [place] [address] 05096- 6546 Sep, Lymphadenitis I88.9 ; Essential hypertension I10 and Acne, unspecified acne type L70.9 [facility] [id number] [place] [address] 90955- 3609 Sep, [facility] [id number] [place] [address] 98600- 1496 Sep, [facility] [id number] [place] [address] 28696- 0302 Sep, [facility] [id number] [place] [address] 87746- 6821 Sep, Acquired hypothyroidism E03.9 [facility] [id number] [place] [address] 03789- 1668 Aug, Acquired hypothyroidism E03.9 [facility] [id number] [place] [address] 50101- 7023 Aug, Furuncle L02.92 [facility] [id number] [place] [address] 43257- 2092 Aug, [facility] [address] [place] [address] 07561- 8452 Aug, Bipolar 2 disorder F31.81 ; Generalized anxiety disorder F41.1 ; Attention deficit disorder F90.0 and Obesity E66.9 [facility] [address] [address]- 2498 16 Aug, 2015 [facility] [id number] [place] [address] 73390- 6934 Aug, [facility] [id number] [place] [address] 82445- 8489 Aug, Acquired hypothyroidism E03.9 [facility] [id number] [place] [address] 75510- 0819 Jul, Acquired hypothyroidism E03.9 ; Upper respiratory tract infection, unspecified type J06.9 and Nonintractable migraine, unspecified migraine type G43.009 [place] [id number] [place] [address] 69178- 1892 Jun, Acute pharyngitis, unspecified J02.9 [place] [id number] [place] [address] 49884- 2714 May, Bipolar II disorder 296.89 ; Attention deficit disorder of childhood without mention of hyperactivity 314.00 ; Generalized anxiety disorder 300.02 and Morbid obesity with BMI of 45.0-49.9, adult 278.01 [place] [address] [place] [address] 85984- 9683 May, Sinusitis 473.9 [place] [address] [place] [address] 00698- 5605 Apr, [facility] [id number] [place] [address] 09234- 5649 Mar, [facility] [id number] [place] [address] 64035- 2338 Mar, Bipolar II disorder 296.89 ; Generalized anxiety disorder 300.02 ; Obesity, unspecified 278.00 and Attention deficit disorder 314.00 [facility] [address] [address]- 3994 Feb, [facility] [address] [place] [address]- 6606 January, [facility] [address] [id number] [place] [address]- 2622 January, [facility] [place] [facility] [address] [id number] [place] [address]- 1896 January, [facility] [address] [id number] [place] [address]- 5376 January, [facility] [place] [facility] [address] [id number] [place] [address] Dec, [facility] [place] [facility] [address] [id number] [place] [address] Dec, [facility] [place] [facility] [address] [id number] [place] [address] 30 Nov, 2014 [facility] [place] [facility] [address] [id number] [place] [address] 18 Nov, 2014 [facility] [place] [facility] [address] [id number] [place] [address] 18 Nov, 2014 [facility] [place] [facility] [address] [id number] [place] [address] Nov, [facility] [place] [facility] [address] [id number] [place] [address] Nov, [facility] [place] [facility] [address] [id number] [place] [address] 11 Nov, 2014 [facility] [place] [facility] [address] [id number] [place] [address] 11 Nov, 2014 [facility] [place] [facility] [address] [id number] [place] [address] 11 Nov, 2014 [facility] [place] [facility] [address] [id number] [place] [address] 11 Nov, 2014 [facility] [place] [facility] [address] [id number] [place] [address] Nov, [facility] [place] [facility] [address] [id number] [place] [address] Nov, [facility] [place] [facility] [address] [id number] [place] [address] Nov, [facility] [place] [facility] [address] [id number] [place] [address] Nov, [facility] [place] [facility] [address] [id number] [place] [address] Nov, [facility] [place] [facility] [address] [id number] [place] [address] Oct, 2014 [facility] [place] [facility] [address] [id number] [place] [address] Oct, 2014 [facility] [place] [facility] [address] [facility] [id number] [place] [address] Oct, 2014 [facility] [place] [facility] [address] [facility] [id number] [place] [address] Oct, 2014 [facility] [place] [facility] [address] [facility] [id number] [place] [address] Oct, 2014 [facility] [place] [facility] [address] [facility] [id number] [place] [address] Oct, 2014 [facility] [place] [facility] [address] [facility] [id number] [place] [address] Oct, 2014 [facility] [place] [facility] [address] [facility] [id number] [place] [address] Oct, 2014 [facility] [place] [facility] [address] [facility] [id number] [place] [address] Oct, 2014 [facility] [place] [facility] [address] [facility] [id number] [place] [address] Oct, 2014 [facility] [place] [facility] [address] [facility] [id number] [place] [address] Oct, 2014 [facility] [place] [facility] [address] [id number] [place] [address] Oct, [facility] [place] [facility] [address] [id number] [place] [address] Sep, [facility] [place] [facility] [address] [id number] [place] [address] 58[address] Sep, [facility] [place] [facility] [address] [id number] [place] [address] 9351 Sep, [facility] [place] [facility] [address] [id number] [place] [address] 54[address] Sep, [facility] [place] [facility] [address] [id number] [place] [address] 2074 Sep, [facility] [place] [facility] [address] [id number] [place] [address] 9277 Sep, [facility] [place] [facility] [address] [id number] [place] [address] 9247 Sep, [facility] [place] [facility] [address] [id number] [place] [address] 6961 Sep, [facility] [place] [facility] [address] [id number] [place] [address] Aug, [facility] [place] [facility] [address] [id number] [place] [address] 98[address] Aug, [facility] [place] [facility] [address] [id number] [place] [address]- 8233 30 Aug, 2014 [facility] [place] [facility] [address] [id number] [place] [address]- 0590 30 Aug, 2014 [facility] [place] [facility] [address] [id number] [place] [address] 3816 Aug, [facility] [place] [facility] [address] [id number] [place] [address] 7843 Aug, [facility] [place] [facility] [address] [id number] [place] [address] 4051 Aug, [facility] [place] [facility] [address] [id number] [place] [address] 5077 Aug, [facility] [place] [facility] [address] [id number] [place] [address] 9439 Aug, [facility] [place] [facility] [address] [id number] [place] [address]- 6481 Aug, [facility] [place] [facility] [address] [id number] [place] [address] 7822 Aug, [facility] [place] [facility] [address] [id number] [place] [address]- 7935 Aug, [facility] [place] [facility] [address] [id number] [place] [address]- 2073 Aug, [facility] [place] [facility] [address] [id number] [place] [address]- 1587 Aug, [facility] [place] [facility] [address] [id number] [place] [address]- 0599 Jul, [facility] [place] [facility] [address] [id number] [place] [address]- 1437 Jul, [facility] [place] [facility] [address] [id number] [place] [address]- 7994 Jul, [facility] [place] [facility] [address] [id number] [address] Jul, [facility] [place] [facility] [address] [id number], [place] [address] Jul, [facility] [place] [facility] [address] [id number] [place] [address]- 5289 Jul, [facility] [place] [facility] [address] [id number] [place] [address]- 0485 Jul, [facility] [place] [facility] [address] [id number] [place] [address]- 4725 Jul, [facility] [place] [facility] [address] [id number] [place] [address]- 2166 04 Jul, 2014 [facility] [place] [facility] [address] [id number] [place] [address]- 5186 04 Jul, 2014 [facility] [place] [facility] [address] [id number] [place] [address] 3615 Jul, [facility] [place] [facility] [address] [id number] [place] [address]- 5871 03 Jul, 2014 [facility] [place] [facility] [address] [id number] [place] [address]- 5291 16 Jun, 2014 [facility] [place] [facility] [address] [id number] [place] [address]- 5217 16 Jun, 2014 [facility] [place] [facility] [address] [id number] [place] [address]- 7696 15 Jun, 2014 [facility] [place] [facility] [address] [id number] [place] [address]- 4395 14 Jun, 2014 [facility] [place] [facility] [address] [id number] [place] [address] 1959 14 Jun, 2014 [facility] [place] [facility] [address] [id number] [place] [address]- 9972 14 Jun, 2014 [facility] [place] [facility] [address] [id number] [place] [address]- 2797 14 Jun, 2014 [facility] [place] [facility] [address] [id number] [place] [address]- 0711 13 Jun, 2014 [facility] [place] [facility] [address] [id number] [place] [address]- 8146 10 Jun, 2014 [facility] [place] [facility] [address] [id number] [place] [address]- 9590 10 Jun, 2014 [facility] [place] [facility] [address] [id number] [place] [address]- 3330 09 Jun, 2014 [facility] [place] [facility] [address] [id number] [place] [address]- 6865 Jun, [facility] [place] [facility] [address] [id number] [place] [address]- 5817 Jun, [facility] [place] [facility] [address] [id number] [place] [address]- 0732 Jun, [facility] [place] [facility] [address] [id number] [place] [address]- 5293 16 May, 2013 [facility] [place] [facility] [address] [id number] [place] [address]- 3649 15 May, 2013 [facility] [place] [facility] [address] [id number] [place] [address]- 1876 15 May, 2013 [facility] [place] [facility] [address] [id number] [place] [address]- 6784 15 May, 2013 [facility] [place] [facility] [address] [id number] [place] [address]- 0441 15 May, 2013 [facility] [place] [facility] [address] [id number] [place] [address]- 2076 15 May, 2013 [facility] [place] [facility] [address] [id number] [place] [address]- 0918 15 May, 2013 [facility] [place] [facility] [address] [id number] [place] [address]- 3207 12 May, 2013 [facility] [place] [facility] [address] [id number] [place] [address]- 9807 12 May, 2013 [facility] [place] [facility] [address] [id number] [place] [address]- 2549 10 May, 2013 [facility] [place] [facility] [address] [id number] [place] [address]- 2540 10 May, 2013 [facility] [place] [facility] [address] [id number] [place] [address]- 2547 02 May, 2013 [facility] [place] [facility] [address] [id number] [place] [address]- 7435 02 May, 2013 [facility] [place] [facility] [address] [id number] [place] [address]- 1134 May, [facility] [place] [facility] [address] [id number] [place] [address]- 7015 May, [facility] [place] [facility] [address] [id number] [place] [address]- 9478 Apr, [facility] [place] [facility] [address] [id number] [place] [address]- 3855 Apr, [facility] [place] [facility] [address] [id number] [place] [address]- 4185 Apr, [facility] [place] [facility] [address] [id number] [place] [address]- 5762 Apr, [facility] [place] [facility] [address] [id number] [place] [address]- 3431 Apr, [facility] [place] [facility] [address] [id number] [place] [address]- 2828 Apr, [facility] [place] [facility] [address] [id number] [place] [address]- 6598 Apr, [facility] [place] [facility] [address] [id number] [place] [address]- 7924 Apr, [facility] [place] [facility] [address] [id number] [place] [address]- 9388 Apr, [facility] [place] [facility] [address] [id number] [place] [address]- 6845 Mar, [facility] [place] [facility] [address] [id number] [place] [address]- 8411 Mar, [facility] [place] [facility] [address] [id number] [place] [address]- 9000 Mar, [facility] [place] [facility] [address] [id number] [place] [address]- 2196 Mar, [facility] [place] [facility] [address] [id number] [place] [address]- 9692 Mar, [facility] [place] [facility] [address] [id number] [place] [address] 1946 Mar, 2013 [facility] [place] [facility] [address] [id number] [place] [address]- 0440 Mar, 2013 [facility] [place] [facility] [address] [id number] [place] [address]- 9687 Mar, 2013 [facility] [place] [facility] [address] [id number] [place] [address]- 1073 Mar, 2013 [facility] [place] [facility] [address] [id number] [place] [address]- 3015 Mar, 2013 [facility] [place] [facility] [address] [id number] [place] [address]- 2311 Mar, 2013 [facility] [place] [facility] [address] [id number] [place] [address]- 2054 Mar, 2013 [facility] [place] [facility] [address] [id number] [place] [address]- 6482 Mar, 2013 [facility] [place] [facility] [address] [id number] [place] [address]- 3527 Mar, 2013 [facility] [place] [facility] [address] [id number] [place] [address]- 6903 Mar, 2013 [facility] [place] [facility] [address] [id number] [place] [address]- 8453 Mar, [facility] [place] [facility] [address] [id number] [place] [address]- 6797 Mar, 2013 [facility] [place] [facility] [address] [id number] [place] [address]- 7873 Mar, [facility] [place] [facility] [address] [id number] [place] [address]- 5178 Feb, [facility] [place] [facility] [address] [id number] [place] [address]- 4484 Feb, [facility] [place] [facility] [address] [id number] [place] [address] Feb, [facility] [place] [facility] [address] [id number] [place] [address]- 9548 Feb, [facility] [place] [facility] [address] [id number] [place] [address]- 4464 Feb, [facility] [place] [facility] [address] [id number] [place] [address]- 3699 Feb, [facility] [place] [facility] [address] [id number] [place] [address]- 3225 Feb, [facility] [place] [facility] [address] [id number] [place] [address]- 2173 Feb, [facility] [place] [facility] [address] [id number] [place] [address]- 5431 Feb, [facility] [place] [facility] [address] [id number] [place] [address]- 1369 Feb, [facility] [place] [facility] [address] [id number] [place] [address]- 0511 January, [facility] [place] [facility] [address] [id number] [place] [address]- 7666 January, [facility] [place] [facility] [address] [id number] [place] [address]- 0978 January, [facility] [place] [facility] [address] [id number] [place] [address]- 7485 January, [facility] [place] [facility] [address] [id number] [place] [address]- 5639 January, [facility] [place] [facility] [address] [id number] [place] [address]- 2319 January, [facility] [place] [facility] [address] [id number] [place] [address]- 1812 January, [facility] [place] [facility] [address] [id number] [place] [address]- 2577 January, [facility] [place] [facility] [address] [id number], [place] [address]- 1159 January, [facility] [address] [id number] [place] [address]- 7831 January, [facility] [place] [facility] [address] [id number] [place] [address]- 1169 January, [facility] [place] [facility] [address] [id number] [place] [address]- 9168 January, [facility] [place] [facility] [address] [id number] [place] [address]- 5134 January, [facility] [place] [facility] [address] [id number] [place] [address]- 3352 January, [facility] [place] [facility] [address] [id number] [place] [address]- 6592 January, [facility] [address] [id number] [place] [address]- 4724 Dec, [facility] [place] [facility] [address] [id number] [place] [address]- 1174 Dec, [facility] [place] [facility] [address] [id number] [place] [address]- 8862 Dec, [facility] [place] [facility] [address] [id number] [place] [address]- 6098 Dec, [facility] [place] [facility] [address] [id number] [place] [address]- 7230 Dec, [facility] [place] [facility] [address] [id number] [place] [address]- 9535 Dec, [facility] [place] [facility] [address] [id number] [place] [address]- 7661 Nov, [facility] [place] [facility] [address] [id number] [place] [address]- 7171 Nov, [facility] [place] [facility] [address] [id number] [place] [address]- 1137 Nov, [facility] [place] [facility] [address] [id number] [place] [address]- 3024 Nov, [facility] [place] [facility] [address] [id number] [place] [address]- 5739 Nov, [facility] [place] [facility] [address] [id number] [place] [address]- 7839 Oct, [facility] [place] [facility] [address] [id number] [place] [address]- 5338 Oct, [facility] [place] [facility] [address] [id number] [place] [address]- 7560 Oct, [facility] [place] [facility] [address] [id number] [place] [address]- 3056 Oct, [facility] [place] [facility] [address] [id number] [place] [address]- 9310 Oct, [facility] [place] [facility] [address] [id number] [place] [address]- 2250 Oct, [facility] [place] [facility] [address] [id number] [place] [address]- 2800 Oct, [facility] [place] [facility] [address] [id number] [place] [address]- 4552 Oct, [facility] [place] [facility] [address] [id number] [place] [address]- 3245 Oct, [facility] [place] [facility] [address] [id number] [place] [address]- 9934 Oct, [facility] [place] [facility] [address] [id number] [place] [address]- 1344 Oct, [facility] [place] [facility] [address] [id number] [place] [address]- 5056 Sep, [facility] [place] [facility] [address] [id number] [place] [address]- 4020 Sep, [facility] [place] [facility] [address] [id number] [place] [address]- 0236 14 Sep, 2013 [facility] [address] [id number] [place] [address]- 2633 14 Sep, 2013 [facility] [place] [facility] [address] [id number] [place] [address]- 8674 Aug, [facility] [address] [id number] [place] [address]- 9584 Aug, [facility] [place] [facility] [address] [id number] [place] [address]- 6335 Jul, [facility] [place] [facility] [address] [id number] [place] [address]- 7966 Jul, [facility] [place] [facility] [address] [id number] [place] [address]- 4878 Jul, [facility] [address] [id number] [place] [address]- 3601 Jul, [facility] [place] [facility] [address] [id number] [place] [address]- 0198 Jul, [facility] [place] [facility] [address] [id number] [place] [address]- 1898 Jun, [facility] [place] [facility] [address] [id number] [place] [address]- 0216 Jun, [facility] [place] [facility] [address] [id number] [place] [address]- 5916 May, [facility] [place] [facility] [address] [id number] [place] [address] 2549 Mar, [facility] [place] [facility] [address] [id number] [place] [address]- 8006 Mar, [facility] [place] [facility] [address] [id number] [place] [address]- 8180 Mar, [facility] [place] [facility] [address] [id number] [place] [address]- 3826 Feb, [facility] [id number] [address]- 2546 January, [facility] [id number], [place] [address]- 2546 Dec, [facility] [id number], [place] [address]- 2546 Nov, [facility] [id number], [place] [address]- 2546 Nov, [facility] [id number], [place] [address]- 2546 Nov, [facility] [id number], [place] [address]- 2546 Oct, [facility] [id number], [place] [address]- 2546 Oct, [facility] [id number], [place] [address]- 2546 Oct, [facility] [id number], [place] [address]- 2546 Oct, [facility] [id number], [place] [address]- 0316 Sep, IMMUNIZATIONS No Known Immunizations SOCIAL HISTORY Never Assessed REASON FOR VISIT Repository Medication PLAN OF CARE VITAL SIGNS MEDICATIONS Unknown [...]
--- OUTSIDE RECORDS SUMMARY | 2018-09-23 22:03 | XMS REPORT ---
Author Author ALLEN PATRICK Organization [facility] Address [address] [place] [address] Care Team Providers Care Superintendent Mechanical Name Role Phone ALLEN PATRICK Unavailable PROBLEMS Type Condition ICD9-CM Code XYW09-HE Code Onset Dates Condition Status SNOMED Code Problem Essential hypertension I10 Active 33270163 Problem Primary insomnia F51.01 Active 0451929 Problem Acquired hypothyroidism E03.9 Active 709765691 Problem Hypothyroidism (acquired) E03.9 Active 727328089 Problem Arthritis M19.90 Active 7897363 Problem Sciatica of right side M54.31 Active 07342721 Problem Migraine with aura and without status migrainosus, not intractable G43.109 Active 9084526 Problem Attention-deficit hyperactivity disorder, predominantly inattentive type F90.0 Active 97244069 Problem Current nonadherence to medical treatment Z91.19 Active 1569946 Problem LGSIL on Pap smear of cervix R87.612 Active 447902638 Problem Postoperative hypothyroidism E89.0 Active 83393763 Problem Generalized anxiety disorder F41.1 Active 99627734 Problem Bipolar 2 disorder F31.81 Active 18431133 Problem Abnormal liver function K76.89 Active 70819991 Problem Acne L70.9 Active 77878977 Problem Obesity E66.9 Active 666835904 Problem Panic disorder [episodic paroxysmal anxiety] without agoraphobia F41.0 Active 54150004 ALLERGIES No Information ENCOUNTERS Encounter Location Date Diagnosis [facility] [id number] [address] Jul, [facility] [address] [address] 1778 Jun, [facility] [address] [address] 2305 Jun, [facility] [address] [place] [address] 78489- 2256 Jun, [facility] [address] [address] 7782 Jun, [facility] [id number] [place] [address] 31912- 7102 May, [facility] [id number] [place] [address] 78271- 7204 May, Arthritis M19.90 [facility] [id number] [place] [address] 83138- 9809 Apr, [facility] [id number] [place] [address] 66413- 6684 Apr, Generalized anxiety disorder F41.1 ; Arthritis M19.90 ; Hypothyroidism (acquired) E03.9 and Lymph node enlargement R59.9 [facility] [id number] [place] [address] 23201- 2221 Apr, Arthritis M19.90 and Sciatica of right side M54.31 [facility] [address] [place] [address] 80048- 8029 Mar, Arthritis M19.90 ; Hypothyroidism (acquired) E03.9 and Lymph node enlargement R59.9 [facility] [address] [address] 8914 Mar, Well woman exam with routine gynecological exam Z01.419 ; control counseling Z30.09 ; Acquired hypothyroidism E03.9 ; Sciatica of right side M54.31 ; Breast tenderness N64.4 and Generalized anxiety disorder F41.1 [facility] [address] [address]- 3921 Mar, [facility] [id number] [place] [address] 32058- 4425 Feb, Bipolar 2 disorder F31.81 ; Generalized anxiety disorder F41.1 ; Attention-deficit hyperactivity disorder, predominantly inattentive type F90.0 and Current nonadherence to medical treatment Z91.19 [facility] [id number] [place] [address] 72276- 6478 Feb, [facility] [id number] [place] [address] 67406- 2421 Nov, Normal physical exam Z00.00 and Enlarged lymph node R59.9 [facility] [id number] [place] [address] 61259- 4536 Nov, Enlarged lymph node R59.9 ; Abnormal liver function K76.89 and Hypothyroid E03.9 [facility] [id number] [place] [address] 74993- 7391 Oct, Bipolar 2 disorder F31.81 [facility] [id number] [place] [address] 34695- 6294 Oct, Sciatica of right side M54.31 and Essential hypertension I10 [facility] [id number] [place] [address] 01866- 0672 Oct, [facility] [id number] [place] [address] 87536- 3289 Aug, Hypothyroid E03.9 [facility] [id number] [place] [address] 76322- 2442 Aug, [facility] [id number] [place] [address] 28061- 2913 Aug, Bipolar 2 disorder F31.81 [facility] [id number] [place] [address] 55222- 3493 Aug, Abnormal liver function K76.89 [facility] [address] [place] [address] 09900- 6966 Jul, Bipolar 2 disorder F31.81 [facility] [address] [place] [address] 67641 -5919 Jul, [facility] [address] [place] [address] 60639- 9940 14 Nov, 2017 Bipolar 2 disorder F31.81 ; Generalized anxiety disorder F41.1 ; Attention-deficit hyperactivity disorder, predominantly inattentive type F90.0 and Current nonadherence to medical treatment Z91.19 [facility] [address] [place] [address] 32311 -6746 14 Jul, 2017 Essential hypertension I10 ; Other viral agents as the cause of diseases classified elsewhere B97.89 ; Acute upper respiratory infection, unspecified J06.9 and BMI 40.0-44.9, adult Z68.41 [facility] [id number] [place] [address] 02178- 3091 13 Jul, 2017 [address] [address] 85404- 9710 Jul, [facility] [id number] [place] [address] 45969- 5724 Jun, [facility] [id number] [place] [address] 87193- 2411 Jun, [facility] [id number] [place] [address] 42515- 8111 Jun, Dysuria R30.0 ; Urinary tract infection, site not specified N39.0 ; Hematuria, unspecified R31.9 ; Sciatica of right side M54.31 ; Migraine with aura and without status migrainosus, not intractable G43.109 ; Primary insomnia F51.01 ; Essential hypertension I10 and Acquired hypothyroidism E03.9 [facility] [id number] [place] [address] 44654- 7641 Jun, Bipolar 2 disorder F31.81 [facility] [id number] [place] [address] 86735- 9874 Jun, Bipolar 2 disorder F31.81 [facility] [id number] [place] [address] 83615- 1290 May, Sore throat J02.9 ; Acute serous otitis media of left ear, recurrence not specified H65.02 and Hypertension I10 [facility] [address] [address] 6364 May, Bipolar 2 disorder F31.81 [facility] [id number] [place] [address] 73330- 8630 Apr, [facility] [address] [address]- 3975 Apr, Bipolar 2 disorder F31.81 [facility] [id number] [place] [address] 68961- 5741 Mar, [facility] [address] [place] [address] 54186- 3476 Feb, Bipolar 2 disorder F31.81 ; Attention deficit disorder F90.0 ; COLLEEN (generalized anxiety disorder) F41.1 and Panic disorder [episodic paroxysmal anxiety] without agoraphobia F41.0 [facility] [id number] [place] [address] 05878- 3941 January, Bipolar 2 disorder F31.81 [facility] [address], [place] [address]- 0622 Dec, [facility] [id number] [place] [address] 74415- 8034 Dec, [facility] [address] [address]- 1764 Dec, [facility] [address], [place] [address]- 4055 Dec, Generalized anxiety disorder F41.1 ; Bipolar 2 disorder F31.81 and Panic disorder [episodic paroxysmal anxiety] without agoraphobia F41.0 [facility] [address], [place] [address]- 8982 Dec, [facility] [address], [place] [address]- 0397 Dec, [facility] [address], [place] [address]- 8960 Nov, [facility] [address], [place] [address]- 9547 Nov, [facility] [id number] [place] [address] 16827- 0875 Nov, [facility] [address], [place] [address]- 1242 Oct, [facility] [id number] [place] [address] 56917- 2177 Oct, [facility] [address] [place] [address] 14417- 4454 Oct, [facility] [id number] [place] [address] 93513- 7899 Oct, [facility] [id number] [place] [address] 79799- 3923 Oct, [facility] [id number] [place] [address] 56369- 0851 Sep, Bipolar 2 disorder F31.81 ; COLLEEN (generalized anxiety disorder) F41.1 ; Attention deficit disorder F90.0 and Panic disorder [episodic paroxysmal anxiety] without agoraphobia F41.0 [facility] [address] [address]- 1513 Sep, [facility] [address], [place] [address]- 0642 Sep, [facility] [address], [place] [address]- 7224 Sep, [facility] [address], [place] [address]- 3293 Aug, [facility] [address] 4629 Aug, [facility] [address] [address]- 1001 Aug, [facility] [address] [address]- 1359 Aug, [facility] [id number] [place] [address] 71908- 4488 Jul, [facility] [id number] [place] [address] 02606- 5265 Jul, [facility] [id number] [place] [address] 40086- 7683 Jul, [facility] [id number] [place] [address] 96594- 1354 Jun, [facility] [id number] [place] [address] 72794- 5209 Jun, Bipolar 2 disorder F31.81 ; Attention deficit disorder F90.0 ; COLLEEN (generalized anxiety disorder) F41.1 and Panic disorder [episodic paroxysmal anxiety] without agoraphobia F41.0 [facility] [id number] [place] [address] 49725- 9812 11 Jun, 2016 [facility] [id number] [place] [address] 14284- 1864 Jun, [facility] [id number] [place] [address] 63405- 7383 06 Jun, 2016 Right foot pain M79.671 and Nausea and vomiting in adult R11.2 [facility] [id number] [place] [address] 85760- 6653 May, [facility] [id number] [place] [address] 00382- 7382 29 May, 2016 Other sinusitis, unspecified chronicity J32.9 ; Environmental allergies Z91.09 ; Other chronic pain G89.29 and Sacrococcygeal disorders, not elsewhere classified M53.3 [facility] [address] [place] [address] 39553 -7196 16 May, 2016 Acute non-recurrent pansinusitis J01.40 and Gastroenteritis K52.9 [facility] [address], [place] [address]- 8069 May, [facility] [id number] [place] [address] 81450- 7577 May, [facility] [address], [place] [address]- 3137 Apr, Bronchitis J40 [facility] [id number] [place] [address] 82754- 6598 Apr, [facility] [address] [place] [address] 89443- 5216 Apr, [facility] [id number] [place] [address] 40925- 0656 Apr, [facility] [address], [place] [address] -1890 Apr, Nausea and vomiting in adult R11.2 [facility] [address], [place] [address]- 8837 Apr, Nausea and vomiting in adult R11.2 [facility] [address] [place] [address] 02781- 2062 Apr, Bipolar 2 disorder F31.81 ; Generalized anxiety disorder F41.1 ; Panic disorder [episodic paroxysmal anxiety] without agoraphobia F41.0 ; Attention deficit disorder F90.0 and COLLEEN (generalized anxiety disorder) F41.1 [facility] [address], [place] [address]- 1301 Apr, [facility] [address], [place] [address]- 8158 Mar, [facility] [address], [place] [address]- 4216 Mar, [facility] [address], [place] [address]- 0828 Mar, [facility] [id number] [place] [address] 11469- 7350 Mar, Bipolar 2 disorder F31.81 ; Attention deficit disorder F90.0 ; COLLEEN (generalized anxiety disorder) F41.1 and Panic disorder [episodic paroxysmal anxiety] without agoraphobia F41.0 [facility] [id number] [place] [address] 22768- 7845 Mar, [facility] [id number] [place] [address] 39489- 3103 Feb, Bipolar 2 disorder F31.81 ; Generalized anxiety disorder F41.1 and Attention deficit disorder F90.0 [facility] [id number] [place] [address] 89668- 7203 Feb, Generalized anxiety disorder F41.1 [facility] [id number] [place] [address] 51084- 0609 Feb, Generalized anxiety disorder F41.1 ; Attention deficit disorder F90.0 and Bipolar 2 disorder F31.81 [facility] [id number] [place] [address] 23359- 9338 Feb, Bipolar 2 disorder F31.81 ; Generalized anxiety disorder F41.1 ; Attention deficit disorder F90.0 and Insomnia, unspecified type G47.00 [facility] [address] [place] [address] 00736- 9581 Feb, Excessive sweating R61 and Breast lump in upper outer quadrant N63 [facility] [address] [place] [address] 14203 -6370 January, Low back pain M54.5 ; Other chronic pain G89.29 and Urinary tract infection, site unspecified N39.0 [facility] [id number] [place] [address] 52429- 1008 January, Bipolar II disorder F31.81 [facility] [address] [place] [address] 34641- 6687 January, [facility] [id number] [place] [address]- 4761 January, Insomnia, unspecified type G47.00 and Grief F43.20 [facility] [address] 58873- 8811 January, [facility] [id number] [place] [address] 57292- 8636 Dec, [facility] [address] 43869- 3099 Dec, [facility] [address] 72516- 0833 Dec, Bipolar 2 disorder F31.81 ; Generalized anxiety disorder F41.1 and Attention deficit disorder F90.0 [facility] [address] 24208- 7918 Dec, Sinusitis J32.9 [facility] [address] 06143- 6512 Dec, Sinusitis J32.9 and Hypothyroid E03.9 [facility] [address] 02142- 1330 Dec, [facility] [id number] [place] [address] 01728 -7599 Dec, Cough R05 and Allergic rhinitis J30.9 [facility] [id number] [place] [address] 29700- 9854 Nov, Hypertension I10 ; Obesity E66.9 and Acne L70.9 [facility] [id number] [place] [address] 01549- 4834 Nov, [facility] [address] 86244- 8039 Oct, [facility] [id number] [place] [address] 29809- 4850 Oct, [facility] [id number] [place] [address] 78186- 9634 Oct, [facility] [address] 43955- 6586 Oct, [facility] [address] 12101- 4701 Sep, Lymphadenitis I88.9 ; Essential hypertension I10 and Acne, unspecified acne type L70.9 [facility] [address] 63262- 8957 Sep, [facility] [address] 97603- 1877 Sep, [facility] [address] 89674- 7717 Sep, [facility] [address] 29006- 5079 Sep, Acquired hypothyroidism E03.9 [facility] [address] 89673- 2664 Aug, Acquired hypothyroidism E03.9 [facility] [address] 60158- 1275 Aug, Furuncle L02.92 [facility] [address] 09938- 2736 Aug, [facility] [address] 80359- 2314 Aug, Bipolar 2 disorder F31.81 ; Generalized anxiety disorder F41.1 ; Attention deficit disorder F90.0 and Obesity E66.9 [facility] [address] 32201- 4960 Aug, [facility] [address] 57069- 6478 Aug, [facility] [address] 59685- 8548 Aug, Acquired hypothyroidism E03.9 [facility] [id number] [place] [address] 45194- 9592 Jul, Acquired hypothyroidism E03.9 ; Upper respiratory tract infection, unspecified type J06.9 and Nonintractable migraine, unspecified migraine type G43.009 [facility] [id number] [place] [address] 83795- 7917 Jun, Acute pharyngitis, unspecified J02.9 [facility] [id number] [place] [address] 60369- 1517 May, Bipolar II disorder 296.89 ; Attention deficit disorder of childhood without mention of hyperactivity 314.00 ; Generalized anxiety disorder 300.02 and Morbid obesity with BMI of 45.0-49.9, adult 278.01 [facility] [id number] [place] [address] 32207- 1838 May, Sinusitis 473.9 [facility] [id number] [place] [address] 50001- 7799 Apr, [facility] [id number] [place] [address] 77028- 0617 Mar, [facility] [id number] [place] [address] 71203- 3893 Mar, Bipolar II disorder 296.89 ; Generalized anxiety disorder 300.02 ; Obesity, unspecified 278.00 and Attention deficit disorder 314.00 [facility] [id number] [place] [address] 56457- 9373 Feb, [facility] [id number] [place] [address] 79394- 1700 January, [facility] [id number] [place] [address] 05466- 7276 January, [facility] [id number] [place] [address] 65592- 0992 January, [facility] [address] [address] 2546 06 Jan, 2015 [facility] [place] [facility] [address] [id number] [place] [address]- 3010 14 Dec, 2014 [facility] [place] [facility] [address] [id number] [place] [address] 2546 13 Dec, 2014 [facility] [place] [facility] [address] [id number] [place] [address]- 9326 30 Nov, 2014 [facility] [place] [facility] [address] [id number] [place] [address]- 9434 18 Nov, 2014 [facility] [place] [facility] [address] [id number] [place] [address]- 4827 18 Nov, 2014 [facility] [place] [facility] [address] [id number] [place] [address]- 9701 Nov, [facility] [place] [facility] [address] [id number] [place] [address]- 6140 Nov, [facility] [place] [facility] [address] [id number] [place] [address]- 6516 Nov, [facility] [place] [facility] [address] [id number] [place] [address]- 6586 Nov, [facility] [place] [facility] [address] [id number] [place] [address]- 7571 Nov, [facility] [place] [facility] [address] [id number] [place] [address]- 1703 11 Nov, 2014 [facility] [place] [facility] [address] [id number] [place] [address]- 3689 10 Nov, 2014 [facility] [place] [facility] [address] [id number] [place] [address]- 5902 10 Nov, 2014 [facility] [place] [facility] [address] [id number] [place] [address]- 2546 09 Nov, 2014 [facility] [place] [facility] [address] [id number] [place] 8950 Nov, [facility] [place] [facility] [address] [id number] [place] [address]- 4222 Nov, [facility] [place] [facility] [address] [id number] [place] [address]- 8654 Oct, [facility] [place] [facility] [address] [id number] [place] [address] Oct, 2014 [facility] [place] [facility] [address] [id number] [place] [address] Oct, 2014 [facility] [place] [facility] [address] [id number] [place] [address] Oct, [facility] [place] [facility] [address] [id number] [place] [address] Oct, 2014 [facility] [place] [facility] [address] [facility] [id number] [place] [address] Oct, 2014 [facility] [place] [facility] [address] [id number] [place] [address] Oct, 2014 [facility] [place] [facility] [address] [id number] [place] [address] Oct, 2014 [facility] [place] [facility] [address] [facility] [id number] [place] [address] Oct, [facility] [place] [facility] [address] [facility] [id number] [place] [address] Oct, 2014 [facility] [place] [facility] [address] [facility] [id number] [place] [address] Oct, [facility] [place] [facility] [address] [id number] [place] [address] Oct, [facility] [place] [facility] [address] [facility] [id number] [place] [address] Sep, [facility] [place] [facility] [address] [facility] [id number] [place] [address] Sep, [facility] [place] [facility] [address] [id number] [place] [address] 08 Sep, 2014 [facility] [place] [facility] [address] [id number] [place] [address] Sep, [facility] [place] [facility] [address] [id number] [place] [address] Sep, [facility] [place] [facility] [address] [id number] [place] [address] Sep, [facility] [place] [facility] [address] [id number] [place] [address] Sep, [facility] [place] [facility] [address] [id number] [place] [address] Sep, [facility] [place] [facility] [address] [id number] [place] [address] Aug, [facility] [place] [facility] [address] [id number] [place] [address] Aug, [facility] [place] [facility] [address] [id number] [place] [address] Aug, [facility] [place] [facility] [address] [id number] [place] [address] Aug, [facility] [place] [facility] [address] [id number] [place] [address] Aug, [facility] [place] [facility] [address] [id number] [place] [address] 30 Aug, 2014 [facility] [place] [facility] [address] [id number] [place] [address] 2541 Aug, [facility] [place] [facility] [address] [id number] [place] [address] Aug, [facility] [place] [facility] [address] [id number] [place] [address] 1426 Aug, [facility] [place] [facility] [address] [id number] [place] [address] 1814 Aug, [facility] [place] [facility] [address] [id number] [place] [address] 9154 Aug, [facility] [place] [facility] [address] [id number] [place] [address] 4727 Aug, [facility] [place] [facility] [address] [id number] [place] [address] 8162 Aug, [facility] [place] [facility] [address] [id number] [place] [address] 0938 Aug, [facility] [place] [facility] [address] [id number] [place] [address] 8067 Jul, [facility] [place] [facility] [address] [id number] [place] [address] 1243 Jul, [facility] [place] [facility] [address] [id number] [place] [address] 6088 Jul, [facility] [place] [facility] [address] [id number] [place] [address] 2841 Jul, [facility] [place] [facility] [address] [id number] [place] [address]- 9510 Jul, [facility] [place] [facility] [address] [id number] [place] [address] 1933 Jul, [facility] [place] [facility] [address] [id number], [place] [address] 0065 Jul, [facility] [place] [facility] [address] [id number], [place] [address] 0668 Jul, [facility] [place] [facility] [address] [id number] [place] [address]- 6111 Jul, [facility] [place] [facility] [address] [id number], [place] [address] 8[address] Jul, [facility] [place] [facility] [address] [id number], [place] [address] 0[address] Jul, [facility] [place] [facility] [address] [id number] [place] [address]- 0370 03 Jul, 2014 [facility] [place] [facility] [address] [id number] [place] [address]- 2080 16 Jun, 2013 [facility] [place] [facility] [address] [id number] [place] [address]- 7914 16 Jun, 2014 [facility] [place] [facility] [address] [id number] [place] [address]- 9670 15 Jun, 2014 [facility] [place] [facility] [address] [id number] [place] [address]- 0315 14 Jun, 2014 [facility] [place] [facility] [address] [id number] [place] [address]- 1428 14 Jun, 2014 [facility] [place] [facility] [address] [id number] [place] [address]- 8677 14 Jun, 2014 [facility] [place] [facility] [address] [id number] [place] [address]- 8977 14 Jun, 2014 [facility] [place] [facility] [address] [id number] [place] [address]- 0059 13 Jun, 2014 [facility] [place] [facility] [address] [id number] [place] [address]- 0572 10 Jun, 2014 [facility] [place] [facility] [address] [id number] [place] [address]- 3367 10 Jun, 2014 [facility] [place] [facility] [address] [id number] [place] [address]- 8250 09 Jun, 2014 [facility] [place] [facility] [address] [id number] [place] [address]- 2309 09 Jun, 2014 [facility] [place] [facility] [address] [id number] [place] [address] 06 Jun, 2014 [facility] [place] [facility] [address] [id number] [place] [address]- 0744 06 Jun, 2013 [facility] [place] [facility] [address] [id number] [place] [address] 16 May, 2014 [facility] [place] [facility] [address] [id number] [place] [address]- 3007 15 May, 2013 [facility] [place] [facility] [address] [id number] [place] [address] 2546 15 May, 2013 [facility] [place] [facility] [address] [id number] [place] [address]- 2545 15 May, 2013 [facility] [place] [facility] [address] [id number] [place] [address] 2546 15 May, 2013 [facility] [place] [facility] [address] [id number] [place] [address]- 0589 15 May, 2013 [facility] [place] [facility] [address] [id number] [place] [address]- 1549 15 May, 2013 [facility] [place] [facility] [address] [id number] [place] [address]- 5535 12 May, 2013 [facility] [place] [facility] [address] [id number] [place] [address]- 9816 12 May, 2013 [facility] [place] [facility] [address] [id number] [place] [address]- 2540 10 May, 2013 [facility] [place] [facility] [address] [id number] [place] [address]- 4982 10 May, 2013 [facility] [place] [facility] [address] [id number] [place] [address]- 8490 02 May, 2013 [facility] [place] [facility] [address] [id number] [place] [address]- 2545 02 May, 2013 [facility] [place] [facility] [address] [id number] [place] [address] 2548 02 May, 2013 [facility] [place] [facility] [address] [id number] [place] [address]- 2543 02 May, 2013 [facility] [place] [facility] [address] [id number] [place] [address]- 6604 Apr, [facility] [place] [facility] [address] [id number] [place] [address]- 0273 Apr, [facility] [place] [facility] [address] [id number] [place] [address]- 0292 Apr, [facility] [place] [facility] [address] [id number] [place] [address]- 3994 Apr, [facility] [place] [facility] [address] [id number] [place] [address]- 0904 Apr, [facility] [place] [facility] [address] [id number] [place] [address]- 2952 Apr, [facility] [place] [facility] [address] [id number] [place] [address]- 4423 Apr, [facility] [place] [facility] [address] [id number] [place] [address]- 9650 Apr, [facility] [place] [facility] [address] [id number] [place] [address]- 3412 Apr, [facility] [place] [facility] [address] [id number] [place] [address]- 2654 Mar, [facility] [place] [facility] [address] [id number] [place] [address]- 1436 Mar, [facility] [place] [facility] [address] [id number] [place] [address]- 6761 Mar, [facility] [place] [facility] [address] [id number] [place] [address]- 9573 Mar, [facility] [place] [facility] [address] [id number] [place] [address]- 1774 Mar, [facility] [place] [facility] [address] [id number] [place] [address]- 0218 Mar, [facility] [place] [facility] [address] [id number] [place] [address]- 3347 Mar, [facility] [place] [facility] [address] [id number] [place] [address]- 1784 Mar, [facility] [place] [facility] [address] [id number] [place] [address]- 0350 Mar, 2013 [facility] [place] [facility] [address] [id number] [place] [address]- 9438 Mar, 2013 [facility] [place] [facility] [address] [id number] [place] [address]- 9699 Mar, 2013 [facility] [place] [facility] [address] [id number] [place] [address]- 5048 Mar, 2013 [facility] [place] [facility] [address] [id number] [place] [address]- 6153 Mar, 2013 [facility] [place] [facility] [address] [id number] [place] [address]- 7918 Mar, 2013 [facility] [place] [facility] [address] [id number] [place] [address]- 5494 Mar, 2013 [facility] [place] [facility] [address] [id number] [place] [address]- 1668 Mar, 2013 [facility] [place] [facility] [address] [id number] [place] [address]- 6022 Mar, [facility] [place] [facility] [address] [id number] [place] [address]- 1125 Mar, [facility] [place] [facility] [address] [id number] [place] [address]- 7345 Feb, [facility] [place] [facility] [address] [id number] [place] [address]- 4748 Feb, [facility] [place] [facility] [address] [id number] [place] [address]- 1143 Feb, [facility] [place] [facility] [address] [id number] [place] [address]- 9901 Feb, [facility] [place] [facility] [address] [id number] [place] [address]- 7616 Feb, [facility] [place] [facility] [address] [id number] [place] [address] Feb, [facility] [place] [facility] [address] [id number] [place] [address]- 8605 Feb, [facility] [place] [facility] [address] [id number] [place] [address]- 2809 Feb, [facility] [place] [facility] [address] [id number] [place] [address]- 7542 Feb, [facility] [place] [facility] [address] [id number] [place] [address]- 8356 Feb, [facility] [place] [facility] [address] [id number] [place] [address]- 1212 January, [facility] [place] [facility] [address] [id number] [place] [address]- 7541 January, [facility] [place] [facility] [address] [id number] [place] [address]- 5869 January, [facility] [place] [facility] [address] [id number] [place] [address]- 3461 January, [facility] [place] [facility] [address] [id number] [place] [address]- 2695 January, [facility] [place] [facility] [address] [id number] [place] [address]- 4098 January, [facility] [place] [facility] [address] [id number] [place] [address]- 3763 January, [facility] [place] [facility] [address] [id number] [place] [address]- 6703 January, [facility] [place] [facility] [address] [id number] [place] [address]- 3324 January, [facility] [place] [facility] [address] [id number] [place] [address]- 4517 January, [facility] [place] [facility] [address] [id number] [place] [address]- 4647 January, [facility] [place] [facility] [address] [id number] [place] [address]- 9220 January, [facility] [place] [facility] [address] [id number] [place] [address]- 1275 January, [facility] [place] [facility] [address] [id number] [place] [address]- 9310 January, [facility] [place] [facility] [address] [id number] [place] [address]- 9964 January, [facility] [place] [facility] [address] [id number] [place] [address]- 5734 Dec, [facility] [place] [facility] [address] [id number] [place] [address]- 9913 Dec, [facility] [place] [facility] [address] [id number] [place] [address]- 4743 Dec, [facility] [place] [facility] [address] [id number] [place] [address]- 7289 Dec, [facility] [place] [facility] [address] [id number] [place] [address]- 4060 Dec, [facility] [place] [facility] [address] [id number] [place] [address]- 2713 Dec, [facility] [place] [facility] [address] [id number] [place] [address]- 7343 Nov, [facility] [place] [facility] [address] [id number] [place] [address]- 9221 Nov, [facility] [place] [facility] [address] [id number] [place] [address]- 8271 Nov, [facility] [place] [facility] [address] [id number] [place] [address]- 2091 Nov, [facility] [place] [facility] [address] [id number] [place] [address]- 2180 Nov, [facility] [place] [facility] [address] [id number] [place] [address]- 1233 Oct, [facility] [place] [facility] [address] [id number] [place] [address]- 4137 20 Oct, 2013 [facility] [place] [facility] [address] [id number] [place] [address]- 8981 Oct, [facility] [place] [facility] [address] [id number] [place] [address]- 2220 Oct, [facility] [place] [facility] [address] [id number] [place] [address]- 6001 10 Oct, 2013 [facility] [place] [facility] [address] [id number] [place] [address]- 2536 Oct, [facility] [place] [facility] [address] [id number] [place] [address]- 4151 Oct, [facility] [place] [facility] [address] [id number] [place] [address]- 4479 Oct, [facility] [place] [facility] [address] [id number] [place] [address]- 9786 04 Oct, 2013 [facility] [place] [facility] [address] [id number] [place] [address]- 1318 Oct, [facility] [place] [facility] [address] [id number] [place] [address]- 0149 03 Oct, 2013 [facility] [place] [facility] [address] [id number] [place] [address]- 3023 Sep, [facility] [place] [facility] [address] [id number], [place] [address]- 6243 Sep, [facility] [place] [facility] [address] [id number] [place] [address]- 0446 Sep, [facility] [place] [facility] [address] [id number] [place] [address]- 4818 Sep, [facility] [place] [facility] [address] [id number] [place] [address]- 6493 Aug, [facility] [place] [facility] [address] [id number] [place] [address]- 9241 Aug, [facility] [address] [id number] [place] [address]- 8542 Jul, [facility] [place] [facility] [address] [id number] [place] [address]- 4127 Jul, [facility] [address] [id number] [place] [address]- 0300 Jul, [facility] [place] [facility] [address] [id number] [place] [address]- 5830 Jul, [facility] [place] [facility] [address] [id number] [place] [address]- 3855 Jul, [facility] [place] [facility] [address] [id number] [place] [address]- 9327 Jun, [facility] [place] [facility] [address] [id number] [place] [address]- 1213 Jun, [facility] [place] [facility] [address] [id number] [place] [address]- 9437 May, [facility] [place] [facility] [address] [id number] [place] [address]- 8360 Mar, [facility] [place] [facility] [address] [id number] [place] [address]- 2792 Mar, [facility] [place] [facility] [address] [id number] [place] [address]- 3276 Mar, [facility] [place] [facility] [address] [id number] [place] [address]- 4669 Feb, [facility] [place] [facility] [address] [id number] [place] [address]- 6282 January, [facility] [place] [facility] [address] [id number] [place] [address]- 2546 Dec, [facility] [place] [facility] [address] [id number] [place] [address]- 6574 Nov, [facility] [address] [id number] [address]- 6615 Nov, [facility] [address] [id number], [place] [address]- 4898 Nov, [facility] [id number], [place] [address]- 6590 Oct, [facility] [id number] [place] [address]- 9933 Oct, [facility] [id number], [place] [address]- 6719 Oct, [facility] [id number], [place] [address]- 0476 Oct, [facility] [id number], [place] [address]- 3740 Sep, IMMUNIZATIONS No Known Immunizations SOCIAL HISTORY Never Assessed REASON FOR VISIT Repository PLAN OF CARE VITAL SIGNS MEDICATIONS Unknown [...]
--- OUTSIDE RECORDS SUMMARY | 2018-09-23 22:04 | XMS REPORT ---
Author Author GHASSAN MARELY [facility] Address [address] [place] [address] Care Team Providers Care Tobacco Weigher Name Role Phone MARELY FERRELL Unavailable PROBLEMS Type Condition ICD9-CM Code [id number] Code Onset Dates Condition Status SNOMED Code Problem Essential hypertension I10 Active 57933263 Problem Primary insomnia F51.01 Active 4343031 Problem Acquired hypothyroidism E03.9 Active 365739765 Problem Hypothyroidism (acquired) E03.9 Active 559205970 Problem Arthritis M19.90 Active 1236807 Problem Sciatica of right side M54.31 Active 35710624 Problem Migraine with aura and without status migrainosus, not intractable G43.109 Active 6607338 Problem Attention-deficit hyperactivity disorder, predominantly inattentive type F90.0 Active 93194838 Problem Current nonadherence to medical treatment Z91.19 Active 6927302 Problem LGSIL on Pap smear of cervix R87.612 Active 778591894 Problem Postoperative hypothyroidism E89.0 Active 82958372 Problem Generalized anxiety disorder F41.1 Active 06152397 Problem Bipolar 2 disorder F31.81 Active 06573142 Problem Abnormal liver function K76.89 Active 47815137 Problem Acne L70.9 Active 42908769 Problem Obesity E66.9 Active 798543226 Problem Panic disorder [episodic paroxysmal anxiety] without agoraphobia F41.0 Active 85086258 ALLERGIES No Information ENCOUNTERS Encounter Location Date Diagnosis [facility] [place] [address] [facility] [id number] [address] May, [facility] [place] [address] [address] May, Arthritis M19.90 [facility] [place] [id number] [address] Apr, [facility] [place] [id number] [place] [address] 21828- 8570 Apr, Generalized anxiety disorder F41.1 ; Arthritis M19.90 ; Hypothyroidism (acquired) E03.9 and Lymph node enlargement R59.9 [place] [id number] [place] [address] 28124- 3450 Apr, Arthritis M19.90 and Sciatica of right side M54.31 [place] [address] [address]- 4873 Mar, Arthritis M19.90 ; Hypothyroidism (acquired) E03.9 and Lymph node enlargement R59.9 [place] [address] [address]- 3881 Mar, Well woman exam with routine gynecological exam Z01.419 ; control counseling Z30.09 ; Acquired hypothyroidism E03.9 ; Sciatica of right side M54.31 ; Breast tenderness N64.4 and Generalized anxiety disorder F41.1 [place] [id number] [place] [address] 22576- 4762 Mar, [place] [id number] [place] [address] 37147- 2178 Feb, Bipolar 2 disorder F31.81 ; Generalized anxiety disorder F41.1 ; Attention-deficit hyperactivity disorder, predominantly inattentive type F90.0 and Current nonadherence to medical treatment Z91.19 [place] [id number] [place] [address] 85789- 4845 Feb, [place] [id number] [place] [address] 23071- 8238 Nov, Normal physical exam Z00.00 and Enlarged lymph node R59.9 [place] [address] 08350- 4053 Nov, Enlarged lymph node R59.9 ; Abnormal liver function K76.89 and Hypothyroid E03.9 [place] [address] 20053- 1399 Oct, Bipolar 2 disorder F31.81 [facility] [place] [address] [address] Oct, Sciatica of right side M54.31 and Essential hypertension I10 [facility] [place] [address] [address] Oct, [place] [id number] [place] [address] 92999- 9528 Aug, Hypothyroid E03.9 [place] [id number] [place] [address] 96805- 7017 Aug, [place] [id number] [place] [address] 22452- 1932 Aug, Bipolar 2 disorder F31.81 [place] [id number] [place] [address] 72444- 1229 Aug, Abnormal liver function K76.89 [place] [id number] [place] [address] 80413- 3624 Jul, Bipolar 2 disorder F31.81 [facility] [place] [id number] [place] [address] 09716 -8517 Jul, [place] [id number] [place] [address] 48097- 3516 14 Jul, 2017 Bipolar 2 disorder F31.81 ; Generalized anxiety disorder F41.1 ; Attention-deficit hyperactivity disorder, predominantly inattentive type F90.0 and Current nonadherence to medical treatment Z91.19 [facility] [address] [address] 14 Jul, 2017 Essential hypertension I10 ; Other viral agents as the cause of diseases classified elsewhere B97.89 ; Acute upper respiratory infection, unspecified J06.9 and BMI 40.0-44.9, adult Z68.41 [place] [id number] [place] [address] 47742- 4749 Jul, [place] [id number] [place] [address] 93004- 6962 Jul, [facility] [place] [id number] [place] [address] 89492- 4323 Jun, [facility] [place] [id number] [place] [address] 59757- 1986 Jun, [facility] [place] [id number] [place] [address] 49163- 3506 Jun, Dysuria R30.0 ; Urinary tract infection, site not specified N39.0 ; Hematuria, unspecified R31.9 ; Sciatica of right side M54.31 ; Migraine with aura and without status migrainosus, not intractable G43.109 ; Primary insomnia F51.01 ; Essential hypertension I10 and Acquired hypothyroidism E03.9 [facility] [place] [id number] [place] [address] 99945- 3152 Jun, Bipolar 2 disorder F31.81 [place] [id number] [place] [address] 87179- 5793 Jun, Bipolar 2 disorder F31.81 [place] [id number] [place] [address] 65558- 6887 May, Sore throat J02.9 ; Acute serous otitis media of left ear, recurrence not specified H65.02 and Hypertension I10 [place] [id number] [place] [address] 64629- 9473 May, Bipolar 2 disorder F31.81 [facility] [place] [id number] [place] [address] 01396- 8159 Apr, [place] [id number] [place] [address] 93427- 3019 Apr, Bipolar 2 disorder F31.81 [facility] [place] [id number] [place] [address] 83698- 2588 Mar, [facility] [place] [id number] [place] [address] 80617- 6892 Feb, Bipolar 2 disorder F31.81 ; Attention deficit disorder F90.0 ; COLLEEN (generalized anxiety disorder) F41.1 and Panic disorder [episodic paroxysmal anxiety] without agoraphobia F41.0 [facility] [place] [address] [address] January, Bipolar 2 disorder F31.81 [facility] [place] [id number] [place] [address] 51285- 7759 Dec, [facility] [place] [id number] [place] [address] 13514- 6770 Dec, [facility] [place] [id number] [place] [address] 90815- 4348 Dec, [facility] [place] [id number] [place] [address] 32691- 1145 Dec, Generalized anxiety disorder F41.1 ; Bipolar 2 disorder F31.81 and Panic disorder [episodic paroxysmal anxiety] without agoraphobia F41.0 [facility] [place] [id number] [place] [address] 48932- 9904 Dec, [facility] [place] [id number] [place] [address] 81627- 1651 Dec, [facility] [place] [address] [address]- 0260 Nov, [facility] [place] [id number] [address]- 8054 Nov, [facility] [place] [id number] [place] [address] 49493- 8618 Nov, [facility] [place] [id number] [place] [address] 93297- 6411 Oct, [facility] [place] [address] [address]- 8203 Oct, [facility] [place] [id number] [place] [address] 28303- 2015 Oct, [facility] [place] [id number] [place] [address] 82314- 2195 Oct, [facility] [place] [id number] [place] [address] 93397- 3476 Oct, [facility] [place] [id number] [place] [address] 12563- 3827 Sep, Bipolar 2 disorder F31.81 ; COLLEEN (generalized anxiety disorder) F41.1 ; Attention deficit disorder F90.0 and Panic disorder [episodic paroxysmal anxiety] without agoraphobia F41.0 [facility] [place] [id number] [place] [address] 25925- 0448 Sep, [facility] [place] [id number] [place] [address] 54584- 7696 Sep, [facility] [place] [id number] [place] [address] 59716- 5383 Sep, [facility] [place] [id number] [place] [address] 02158- 3876 Aug, [facility] [place] [id number] [place] [address] 300278- 0882 Aug, [facility] [place] [id number] [place] [address] 101895- 2522 Aug, [facility] [place] [id number] [place] [address] 702732- 8562 Aug, [facility] [place] [address] [address]- 2090 Jul, [facility] [place] [id number] [place] [address] 30655- 6851 Jul, [facility] [place] [address] [address]- 2596 Jul, [facility] [place] [id number] [place] [address] 68237- 1043 Jun, [facility] [place] [id number] [place] [address] 28849- 1317 Jun, Bipolar 2 disorder F31.81 ; Attention deficit disorder F90.0 ; COLLEEN (generalized anxiety disorder) F41.1 and Panic disorder [episodic paroxysmal anxiety] without agoraphobia F41.0 [facility] [place] [id number] [place] [address] 22001- 7692 Jun, [facility] [place] [address] 19049- 3011 Jun, [facility] [place] [address] 14899- 8121 Jun, Right foot pain M79.671 and Nausea and vomiting in adult R11.2 [facility] [place] [address] 19513- 1007 May, [facility] [place] [address] 10673- 6683 May, Other sinusitis, unspecified chronicity J32.9 ; Environmental allergies Z91.09 ; Other chronic pain G89.29 and Sacrococcygeal disorders, not elsewhere classified M53.3 [facility] [id number] [place] [address] 36585 -7045 May, Acute non-recurrent pansinusitis J01.40 and Gastroenteritis K52.9 [facility] [place] [id number] [place] [address] 25919- 4916 May, [facility] [place] [address] 03656- 5690 May, [facility] [place] [address] 54443- 8892 Apr, Bronchitis J40 [facility] [place] [id number] [place] [address] 60640- 7318 Apr, [facility] [place] [address] 70985- 9693 Apr, [facility] [place] [address] [address]- 7297 Apr, [facility] [address], [place] [address] Apr, Nausea and vomiting in adult R11.2 [facility] [place] [id number] [place] [address] 63533- 7572 Apr, Nausea and vomiting in adult R11.2 [facility] [place] [id number] [place] [address] 57835- 5398 Apr, Bipolar 2 disorder F31.81 ; Generalized anxiety disorder F41.1 ; Panic disorder [episodic paroxysmal anxiety] without agoraphobia F41.0 ; Attention deficit disorder F90.0 and COLLEEN (generalized anxiety disorder) F41.1 [facility] [place] [id number] [place] [address] 50454- 1735 Apr, [facility] [place] [id number] [place] [address] 80308- 4522 Mar, [facility] [place] [id number] [place] [address] 90345- 4328 Mar, [facility] [place] [address], [place] [address]- 9242 Mar, [facility] [place] [id number] [place] [address] 57560- 3162 Mar, Bipolar 2 disorder F31.81 ; Attention deficit disorder F90.0 ; COLLEEN (generalized anxiety disorder) F41.1 and Panic disorder [episodic paroxysmal anxiety] without agoraphobia F41.0 [facility] [place] [address] [address]- 2421 Mar, [facility] [place] [address] [address]- 6762 Feb, Bipolar 2 disorder F31.81 ; Generalized anxiety disorder F41.1 and Attention deficit disorder F90.0 [facility] [place] [id number] [place] [address] 72556- 2402 Feb, Generalized anxiety disorder F41.1 [facility] [place] [id number] [place] [address] 70805- 2365 Feb, Generalized anxiety disorder F41.1 ; Attention deficit disorder F90.0 and Bipolar 2 disorder F31.81 [facility] [place] [id number] [place] [address] 04310- 9949 Feb, Bipolar 2 disorder F31.81 ; Generalized anxiety disorder F41.1 ; Attention deficit disorder F90.0 and Insomnia, unspecified type G47.00 [facility] [place] [id number] [place] [address] 57396- 8611 Feb, Excessive sweating R61 and Breast lump in upper outer quadrant N63 [facility] [id number] [place] [address] 63577 -2655 January, Low back pain M54.5 ; Other chronic pain G89.29 and Urinary tract infection, site unspecified N39.0 [facility] [place] [id number] [place] [address] 65372- 3916 January, Bipolar II disorder F31.81 [facility] [place] [id number] [place] [address] 86418- 9608 January, [facility] [place] [id number] [place] [address] 53628- 2571 January, Insomnia, unspecified type G47.00 and Grief F43.20 [facility] [place] [id number] [place] [address] 97309- 6088 January, [facility] [place] [id number] [place] [address] 32123- 5578 Dec, [facility] [place] [id number] [place] [address] 95857- 6312 Dec, [facility] [place] [id number] [place] [address] 71464- 7402 Dec, Bipolar 2 disorder F31.81 ; Generalized anxiety disorder F41.1 and Attention deficit disorder F90.0 [place] [address] 04674- 8362 Dec, Sinusitis J32.9 [facility] [place] [address] 24225- 7351 14 Dec, 2015 Sinusitis J32.9 and Hypothyroid E03.9 [facility] [place] [address] 07657- 6954 Dec, [facility] [address] 03636 -8737 Dec, Cough R05 and Allergic rhinitis J30.9 [place] [address] 08284- 8384 Nov, Hypertension I10 ; Obesity E66.9 and Acne L70.9 [place] [address] 39152- 8898 Nov, [place] [address] 21093- 9153 Oct, [facility] [place] [address] 47217- 3747 Oct, [place] [address] 17838- 3466 Oct, [facility] [place] [address] 04316- 9493 Oct, [facility] [place] [address] 33168- 7177 Sep, Lymphadenitis I88.9 ; Essential hypertension I10 and Acne, unspecified acne type L70.9 [facility] [place] [address] 28589- 0418 Sep, [facility] [place] [address] [place] [address]- 8226 Sep, [facility] [place] [id number] [place] [address] 64174- 6030 Sep, [facility] [place] [id number] [place] [address] 23286- 1036 Sep, Acquired hypothyroidism E03.9 [facility] [place] [id number] [place] [address] 45782- 1235 Aug, Acquired hypothyroidism E03.9 [facility] [place] [id number] [place] [address] 82624- 6137 Aug, Furuncle L02.92 [facility] [place] [id number] [place] [address] 55869- 3335 Aug, [facility] [place] [id number] [place] [address] 99398- 5626 Aug, Bipolar 2 disorder F31.81 ; Generalized anxiety disorder F41.1 ; Attention deficit disorder F90.0 and Obesity E66.9 [facility] [place] [id number] [place] [address] 54024- 8728 Aug, [facility] [place] [id number] [place] [address] 54665- 7199 Aug, [facility] [place] [id number] [place] [address] 04776- 1075 Aug, Acquired hypothyroidism E03.9 [facility] [place] [id number] [place] [address] 44688- 3283 Jul, Acquired hypothyroidism E03.9 ; Upper respiratory tract infection, unspecified type J06.9 and Nonintractable migraine, unspecified migraine type G43.009 [facility] [place] [id number] [address] 14 Jun, 2015 Acute pharyngitis, unspecified J02.9 [facility] [place] [id number] [place] [address] 03945- 8054 May, Bipolar II disorder 296.89 ; Attention deficit disorder of childhood without mention of hyperactivity 314.00 ; Generalized anxiety disorder 300.02 and Morbid obesity with BMI of 45.0-49.9, adult 278.01 [facility] [place] [id number] [address] May, Sinusitis 473.9 [facility] [place] [id number] [place] [address] 57246- 6632 Apr, [facility] [place] [id number] [place] [address] 32449- 5292 Mar, [facility] [place] [id number] [place] [address] 42402- 5136 Mar, Bipolar II disorder 296.89 ; Generalized anxiety disorder 300.02 ; Obesity, unspecified 278.00 and Attention deficit disorder 314.00 [facility] [place] [id number] [place] [address] 24879- 7857 Feb, [facility] [place] [id number] [place] [address] 92839- 5406 January, [facility] [place] [id number] [place] [address] 32537- 5656 January, [facility] [place] [id number] [place] [address] 38524- 5336 January, [facility] [place] [id number] [place] [address] 31875- 1006 January, [facility] [place], [facility] [id number] [place] [address]41- 4920 Dec, [facility] [place] [id number] [place] [address] 46333- 2213 Dec, [facility] [place] [id number] [place] [address] 99865- 3616 Nov, [facility] [place] [id number] [place] [address] 59938- 1826 Nov, [facility] [place] [facility] [address] [id number] [place] [address] 4330 Nov, [facility] [place] [facility] [address] [id number] [place] [address]- 1160 Nov, [facility] [place] [facility] [address] [id number] [place] [address]- 5429 Nov, [facility] [place] [facility] [address] [id number] [place] [address]- 1416 Nov, [facility] [place] [facility] [address] [id number] [place] [address]- 8866 Nov, [facility] [place] [facility] [address] [id number] [place] [address]- 6103 Nov, [facility] [place] [facility] [address] [id number] [place] [address]- 1003 Nov, [facility] [place] [facility] [address] [id number] [place] [address]- 1425 Nov, [facility] [place] [facility] [address] [id number] [place] [address]- 1971 Nov, [facility] [place] [facility] [address] [id number] [place] [address]- 5987 Nov, [facility] [place] [facility] [address] [id number] [place] [address]- 8489 Nov, [facility] [place] [facility] [address] [id number] [place] [address]- 1305 Nov, [facility] [place] [facility] [address] [id number] [place] [address]- 4320 Oct, [facility] [place] [facility] [address] [id number] [place] [address]- 6122 Oct, [facility] [place] [facility] [address] [id number] [place] [address]- 9745 Oct, [facility] [place] [facility] [address] [id number] [place] [address]- 8105 Oct, [facility] [place] [facility] [address] [id number] [place] [address]- 1654 Oct, 2014 [facility] [place] [facility] [address] [id number] [place] [address] Oct, 2014 [facility] [place] [facility] [address] [id number] [place] [address]- 6716 Oct, 2014 [facility] [place] [facility] [address] [id number] [place] [address]- 1792 Oct, 2014 [facility] [place] [facility] [address] [id number] [place] [address]- 6008 Oct, [facility] [place] [facility] [address] [facility] [id number] [place] [address]- 7782 Oct, [facility] [place] [facility] [address] [facility] [id number] [place] [address]- 9022 Oct, [facility] [place] [facility] [address] [facility] [id number] [place] [address]- 1175 Oct, [facility] [place] [facility] [address] [facility] [id number] [place] [address]- 5310 Sep, [facility] [place] [facility] [address] [facility] [id number] [place] [address]- 0109 Sep, [facility] [place] [facility] [address] [facility] [id number] [place] [address]- 3928 Sep, [facility] [place] [facility] [address] [id number], [place] [address]- 0208 Sep, [facility] [place] [facility] [address] [id number] [place] [address]- 0794 Sep, [facility] [place] [facility] [address] [facility] [id number] [place] [address]- 1509 Sep, [facility] [place] [facility] [address] [facility] [id number], [place] [address]- 5488 Sep, [facility] [place] [facility] [address] [id number] [place] [address]- 2735 Sep, [facility] [place] [facility] [address] [id number] [place] [address]- 6509 Aug, [facility] [place] [facility] [address] [id number] [place] Aug, [facility] [place] [facility] [address] [id number] [place] [address]- 6849 Aug, [facility] [place] [facility] [address] [id number] [place] [address]- 5577 Aug, [facility] [place] [facility] [address] [id number] [place] [address]- 5318 Aug, [facility] [place] [facility] [address] [id number] [place] [address]- 5537 Aug, [facility] [place] [facility] [address] [id number] [place] [address]- 7759 Aug, [facility] [place] [facility] [address] [id number] [place] [address]- 4843 Aug, [facility] [place] [facility] [address] [id number] [place] [address]- 9638 Aug, [facility] [place] [facility] [address] [id number] [place] [address]- 9642 Aug, [facility] [place] [facility] [address] [id number] [place] [address]- 8567 Aug, [facility] [place] [facility] [address] [id number] [place] [address]- 5582 Aug, [facility] [place] [facility] [address] [id number] [place]79 Aug, [facility] [place] [facility] [address] [id number] [place] Aug, [facility] [place] [facility] [address] [id number], [place] [address]- 0967 Jul, [facility] [place] [facility] [address] [id number] [place] [address]- 4816 Jul, [facility] [place] [facility] [address] [id number] [place] [address]- 5331 Jul, [facility] [place] [facility] [address] [id number] [place] [address]- 3327 Jul, [facility] [place] [facility] [address] [id number] [place] [address]- 1275 Jul, [facility] [place] [facility] [address] [id number] [place] [address]- 9845 Jul, [facility] [place] [facility] [address] [id number] [place] [address]- 1682 Jul, [facility] [place] [facility] [address] [id number], [place] [address]- 7572 Jul, [facility] [place] [facility] [address] [id number] [place] [address]- 5279 Jul, [facility] [place] [facility] [address] [id number], [place] [address]- 9592 Jul, [facility] [place] [facility] [address] [id number], [place] [address]- 5640 Jul, [facility] [place] [facility] [address] [id number], [place] [address]- 6793 Jul, [facility] [place] [facility] [address] [id number] [address]- 3275 16 Jun, 2014 [facility] [place] [facility] [address] [id number] [address]- 5470 16 Jun, 2014 [facility] [place] [facility] [address] [id number] [address]- 0444 15 Jun, 2014 [facility] [place] [facility] [address] [id number] [place] [address]- 8273 14 Jun, 2014 [facility] [place] [facility] [address] [id number] [place] [address]- 1627 14 Jun, 2014 [facility] [place] [facility] [address] [id number] [place] [address]- 2736 14 Jun, 2014 [facility] [place] [facility] [address] [id number] [place] [address]- 7994 14 Jun, 2014 [facility] [place] [facility] [address] [id number] [place] [address]- 7986 13 Jun, 2014 [facility] [place] [facility] [address] [id number] [place] [address]- 1534 10 Jun, 2014 [facility] [place] [facility] [address] [id number] [place] [address]- 1954 10 Jun, 2014 [facility] [place] [facility] [address] [id number] [place] [address]- 8461 09 Jun, 2014 [facility] [place] [facility] [address] [id number] [place] [address]- 7122 09 Jun, 2014 [facility] [place] [facility] [address] [id number] [place] [address]- 4329 06 Jun, 2014 [facility] [place] [facility] [address] [id number] [place] [address]- 5925 06 Jun, 2014 [facility] [place] [facility] [address] [id number] [place] [address]- 9545 16 May, 2014 [facility] [place] [facility] [address] [id number] [place] [address]- 5224 15 May, 2014 [facility] [place] [facility] [address] [id number] [place] [address]- 3640 15 May, 2014 [facility] [place] [facility] [address] [id number] [place] [address]- 2114 15 May, 2014 [facility] [place] [facility] [address] [id number] [place] [address]- 3571 15 May, 2014 [facility] [place] [facility] [address] [id number] [place] [address]- 8125 15 May, 2014 [facility] [place] [facility] [address] [id number] [place] [address]- 7716 15 May, 2013 [facility] [place] [facility] [address] [id number] [place] [address]- 6134 12 May, 2013 [facility] [place] [facility] [address] [id number] [place] [address]- 3014 12 May, 2013 [facility] [place] [facility] [address] [id number] [place] [address]- 6460 10 May, 2013 [facility] [place] [facility] [address] [id number] [place] [address]- 2882 10 May, 2013 [facility] [place] [facility] [address] [id number] [place] [address]- 0788 02 May, 2013 [facility] [place] [facility] [address] [id number] [place] [address]- 3344 May, 2013 [facility] [place] [facility] [address] [id number] [place] [address]- 5622 02 May, 2013 [facility] [place] [facility] [address] [id number] [place] [address]- 0579 May, 2013 [facility] [place] [facility] [address] [id number] [place] [address]- 8511 Apr, [facility] [place] [facility] [address] [id number] [place] [address]- 1618 Apr, [facility] [place] [facility] [address] [id number] [place] [address]- 0251 Apr, [facility] [place] [facility] [address] [id number] [place] [address]- 8179 Apr, [facility] [place] [facility] [address] [id number] [place] [address]- 7033 Apr, [facility] [place] [facility] [address] [id number] [place] [address]- 9612 Apr, [facility] [place] [facility] [address] [id number] [place] [address]- 4798 Apr, [facility] [place] [facility] [address] [id number] [place] [address]- 7920 Apr, [facility] [place] [facility] [address] [id number] [place] [address]- 0023 Apr, [facility] [place] [facility] [address] [id number] [place] [address]- 2336 Mar, [facility] [place] [facility] [address] [id number] [place] [address]- 2331 Mar, [facility] [place] [facility] [address] [id number] [place] [address]- 8604 Mar, [facility] [place] [facility] [address] [id number] [place] [address]- 5145 Mar, [facility] [place] [facility] [address] [id number] [place] [address]- 3720 Mar, [facility] [place] [facility] [address] [id number] [place] [address]- 0755 Mar, [facility] [place] [facility] [address] [id number] [place] [address]- 1950 Mar, [facility] [place] [facility] [address] [id number] [place] [address]- 2378 Mar, [facility] [place] [facility] [address] [id number] [place] [address]- 5884 Mar, [facility] [place] [facility] [address] [id number] [place] [address]- 9179 Mar, [facility] [place] [facility] [address] [id number] [place] [address]- 2829 Mar, [facility] [place] [facility] [address] [id number] [place] [address]- 4024 Mar, [facility] [place] [facility] [address] [id number] [place] [address]- 0125 Mar, [facility] [place] [facility] [address] [id number] [place] [address]- 2382 Mar, [facility] [place] [facility] [address] [id number] [place] [address]- 9435 Mar, [facility] [place] [facility] [address] [id number] [place] [address]- 8382 Mar, [facility] [place] [facility] [address] [id number] [place] [address]- 4136 Mar, [facility] [place] [facility] [address] [id number] [place] [address]- 0042 Mar, [facility] [place] [facility] [address] [id number] [place] [address]- 3486 Feb, [facility] [place] [facility] [address] [id number] [place] [address]- 1059 Feb, [facility] [place] [facility] [address] [id number] [place] [address]- 2414 Feb, [facility] [place] [facility] [address] [id number] [place] [address]- 7608 Feb, [facility] [place] [facility] [address] [id number] [place] [address]- 3416 Feb, [facility] [place] [facility] [address] [id number] [place] [address]- 3509 Feb, [facility] [place] [facility] [address] [id number] [place] [address]- 2531 Feb, [facility] [place] [facility] [address] [id number] [place] [address]- 5966 Feb, [facility] [place] [facility] [address] [id number] [place] [address]- 3985 Feb, [facility] [place] [facility] [address] [id number] [place] [address]- 1804 Feb, [facility] [place] [facility] [address] [id number] [place] [address]- 9402 January, [facility] [address] [id number] [place] [address]- 1585 January, [facility] [place] [facility] [address] [id number] [place] [address]- 3655 January, [facility] [place] [facility] [address] [id number] [place] [address]- 3632 January, [facility] [place] [facility] [address] [id number] [place] [address]- 9861 January, [facility] [place] [facility] [address] [id number] [place] [address]- 1899 January, [facility] [place] [facility] [address] [id number] [place] [address]- 0775 January, [facility] [place] [facility] [address] [id number] [place] [address]- 1035 January, [facility] [place] [facility] [address] [id number] [place] [address]- 0593 January, [facility] [place] [facility] [address] [id number] [place] [address]- 1426 January, [facility] [place] [facility] [address] [id number] [place] [address]- 7302 January, [facility] [place] [facility] [address] [id number] [place] [address]- 2833 January, [facility] [place] [facility] [address] [id number] [place] [address]- 0784 January, [facility] [place] [facility] [address] [id number] [place] [address]- 6826 January, [facility] [place] [facility] [address] [id number] [place] [address]- 8895 January, [facility] [place] [facility] [address] [id number] [place] [address]- 9359 Dec, [facility] [place] [facility] [address] [id number] [place] [address]- 9957 10 Dec, 2013 [facility] [place] [facility] [address] [id number] [place] [address]- 0021 Dec, [facility] [place] [facility] [address] [id number] [place] [address]- 9416 Dec, [facility] [place] [facility] [address] [id number] [place] [address]- 6623 Dec, [facility] [place] [facility] [address] [id number] [place] [address]- 9143 Dec, [facility] [place] [facility] [address] [id number] [place] [address]- 1637 Nov, [facility] [place] [facility] [address] [id number] [place] [address]- 2036 Nov, [facility] [place] [facility] [address] [id number] [place] [address]- 8864 Nov, [facility] [place] [facility] [address] [id number] [place] [address]- 9883 Nov, [facility] [place] [facility] [address] [id number] [place] [address]- 9604 Nov, [facility] [place] [facility] [address] [facility] [id number] [place] [address]- 2144 Oct, [facility] [place] [facility] [address] [id number] [place] [address]- 6666 20 Oct, 2013 [facility] [place] [facility] [address] [id number] [place] [address]- 6246 Oct, [facility] [place] [facility] [address] [id number] [place] [address]- 4715 13 Oct, 2013 [facility] [place] [facility] [address] [id number] [place] [address]- 3109 10 Oct, 2013 [facility] [place] [facility] [address] [id number] [place] [address]- 7116 Oct, [facility] [place] [facility] [address] [id number] [place] [address]- 7034 06 Oct, 2013 [facility] [place] [facility] [address] [id number] [place] [address]- 4313 Oct, [facility] [place] [facility] [address] [id number] [place] [address]- 1070 Oct, [facility] [place] [facility] [address] [id number] [place] [address]- 3704 Oct, [facility] [place] [facility] [address] [id number] [place] [address]- 2555 Oct, [facility] [place] [facility] [address] [id number] [place] [address]- 8410 Sep, [facility] [place] [facility] [address] [id number] [place] [address]- 0477 Sep, [facility] [place] [facility] [address] [id number] [place] [address]- 9306 Sep, [facility] [place] [facility] [address] [id number] [place] [address]- 2295 Sep, [facility] [place] [facility] [address] [id number] [place] [address]- 9303 Aug, [facility] [place] [facility] [address] [id number] [place] [address]- 8279 Aug, [facility] [place] [facility] [address] [id number] [place] [address]- 4839 Jul, [facility] [place] [facility] [address] [id number] [place] [address]- 6406 Jul, [facility] [place] [facility] [address] [id number] [place] [address]- 7301 Jul, [facility] [place] [facility] [address] [id number] [place] [address]- 7107 Jul, [facility] [place] [facility] [address] [id number] [place] [address]- 2546 Jul, [facility] [address] [id number] [place] [address]- 6696 Jun, [facility] [address] [id number] [place] [address]- 2546 Jun, [facility] [address] [id number] [place] [address] 2546 May, [facility] [address] [id number] [place] [address]- 2547 Mar, [facility] [address] [id number] [place] [address]- 3706 Mar, [facility] [address] [id number] [place] [address]- 25[address] Mar, [facility] [address] [id number] [place] [address] Feb, [facility] [address] [id number] [place] [address] January, [facility] [address] [id number] [place] [address] Dec, [facility] [address] [id number] [place] [address] Nov, [facility] [address] [id number] [place] [address] Nov, [facility] [address] [id number] [place] [address] Nov, [facility] [place] [facility] [address] [id number] [place] [address] Oct, [facility] [place] [facility] [address] [id number] [place] [address] Oct, [facility] [place] [facility] [address] [id number] [place] [address] Oct, [facility] [place] [address] [facility] [id number] [place] [address] Oct, [facility] [place] [address] [facility] [id number] [place] [address] Sep, IMMUNIZATIONS No Known Immunizations SOCIAL HISTORY Never Assessed REASON FOR VISIT Requests return call PLAN OF CARE VITAL SIGNS MEDICATIONS Unknown [...]
--- OUTSIDE RECORDS SUMMARY | 2018-09-23 22:05 | XMS REPORT ---
Author Author ALLEN PATRICK [facility] Address [address] [place] [address] Care Team Providers Care Bus Aide Name Role Phone ALLEN PATRICK Unavailable PROBLEMS Type Condition ICD9-CM Code SFW93-QM Code Onset Dates Condition Status SNOMED Code Problem Essential hypertension I10 Active 09194897 Problem Primary insomnia F51.01 Active 9744474 Problem Acquired hypothyroidism E03.9 Active 743130872 Problem Hypothyroidism (acquired) E03.9 Active 711343699 Problem Arthritis M19.90 Active 0692397 Problem Sciatica of right side M54.31 Active 98742535 Problem Migraine with aura and without status migrainosus, not intractable G43.109 Active 8713535 Problem Attention-deficit hyperactivity disorder, predominantly inattentive type F90.0 Active 89500559 Problem Current nonadherence to medical treatment Z91.19 Active 3034822 Problem LGSIL on Pap smear of cervix R87.612 Active 317962695 Problem Postoperative hypothyroidism E89.0 Active 56370435 Problem Generalized anxiety disorder F41.1 Active 07293959 Problem Bipolar 2 disorder F31.81 Active 30691739 Problem Abnormal liver function K76.89 Active 47252934 Problem Acne L70.9 Active 19742781 Problem Obesity E66.9 Active 991671493 Problem Panic disorder [episodic paroxysmal anxiety] without agoraphobia F41.0 Active 11324585 ALLERGIES No Information ENCOUNTERS Encounter Location Date Diagnosis [facility] [id number] [address] Jun, [facility] [address] [address] May, [facility] [address] [address] 7[address] May, Arthritis M19.90 [facility] [address] [address] 39[address] Apr, [place] [address] [address] Apr, Generalized anxiety disorder F41.1 ; Arthritis M19.90 ; Hypothyroidism (acquired) E03.9 and Lymph node enlargement R59.9 [place] [address] [address] 10[address] Apr, Arthritis M19.90 and Sciatica of right side M54.31 [place] [id number] [address] 18[address] Mar, Arthritis M19.90 ; Hypothyroidism (acquired) E03.9 and Lymph node enlargement R59.9 [place] [address] [address] 7867 Mar, Well woman exam with routine gynecological exam Z01.419 ; control counseling Z30.09 ; Acquired hypothyroidism E03.9 ; Sciatica of right side M54.31 ; Breast tenderness N64.4 and Generalized anxiety disorder F41.1 [place] [id number] [place] [address] 59529- 8197 Mar, [place] [id number] [place] [address] 63950- 2321 Feb, Bipolar 2 disorder F31.81 ; Generalized anxiety disorder F41.1 ; Attention-deficit hyperactivity disorder, predominantly inattentive type F90.0 and Current nonadherence to medical treatment Z91.19 [place] [address] [address]- 1090 Feb, [place] [id number] [place] [address] 54852- 4212 Nov, Normal physical exam Z00.00 and Enlarged lymph node R59.9 [place] [address] [address]- 6511 Nov, Enlarged lymph node R59.9 ; Abnormal liver function K76.89 and Hypothyroid E03.9 [place] [id number] [place] [address] 28243- 6604 Oct, Bipolar 2 disorder F31.81 [place] [id number] [place] [address] 20727- 8468 Oct, Sciatica of right side M54.31 and Essential hypertension I10 [id number] [place] [address] 47329- 3244 Oct, [place] [id number] [place] [address] 49896- 6466 Aug, Hypothyroid E03.9 [id number] [place] [address] 43958- 8418 Aug, [place] [id number] [place] [address] 11161- 7609 Aug, Bipolar 2 disorder F31.81 [place] [id number] [place] [address] 76164- 8647 Aug, Abnormal liver function K76.89 [id number] [place] [address] 73985- 1457 Jul, Bipolar 2 disorder F31.81 [facility] [id number] [place] [address] 97499 -2863 Jul, [address] [id number] [place] [address] 61555- 7668 Jul, Bipolar 2 disorder F31.81 ; Generalized anxiety disorder F41.1 ; Attention-deficit hyperactivity disorder, predominantly inattentive type F90.0 and Current nonadherence to medical treatment Z91.19 [facility] [id number] [place] [address] 01420 -1063 14 Jul, 2017 Essential hypertension I10 ; Other viral agents as the cause of diseases classified elsewhere B97.89 ; Acute upper respiratory infection, unspecified J06.9 and BMI 40.0-44.9, adult Z68.41 [address] [address]- 2079 Jul, [facility] [id number] [place] [address] 33660- 2441 Jul, [facility] [id number] [place] [address] 29450- 3994 Jun, [place] [address] 36298- 0311 Jun, [place] [id number] [place] [address] 44598- 1424 Jun, Dysuria R30.0 ; Urinary tract infection, site not specified N39.0 ; Hematuria, unspecified R31.9 ; Sciatica of right side M54.31 ; Migraine with aura and without status migrainosus, not intractable G43.109 ; Primary insomnia F51.01 ; Essential hypertension I10 and Acquired hypothyroidism E03.9 [place] [id number] [place] [address] 92532- 5730 Jun, Bipolar 2 disorder F31.81 [place] [id number] [place] [address] 54130- 6458 Jun, Bipolar 2 disorder F31.81 [place] [id number] [place] [address] 36167- 7676 May, Sore throat J02.9 ; Acute serous otitis media of left ear, recurrence not specified H65.02 and Hypertension I10 [place] [id number] [place] [address] 84513- 5398 May, Bipolar 2 disorder F31.81 [place] [id number] [place] [address] 12452- 9773 Apr, [place] [id number] [place] [address] 41834- 8246 Apr, Bipolar 2 disorder F31.81 [place] [id number] [place] [address] 78553- 7392 Mar, [facility] [address] [address]- 6862 Feb, Bipolar 2 disorder F31.81 ; Attention deficit disorder F90.0 ; COLLEEN (generalized anxiety disorder) F41.1 and Panic disorder [episodic paroxysmal anxiety] without agoraphobia F41.0 [facility] [address] [address]- 2371 January, Bipolar 2 disorder F31.81 [facility] [id number] [place] [address] 15069- 8184 Dec, [facility] [id number] [place] [address] 72925- 5213 Dec, [facility] [id number] [place] [address] 77540- 8655 Dec, [facility] [id number] [place] [address] 67327- 7845 Dec, Generalized anxiety disorder F41.1 ; Bipolar 2 disorder F31.81 and Panic disorder [episodic paroxysmal anxiety] without agoraphobia F41.0 [facility] [id number] [place] [address] 78605- 4477 Dec, [facility] [address] [address]- 4765 Dec, [facility] [address] [address]- 6330 Nov, [facility] [address] [address]- 5603 Nov, [facility] [address] [address]- 5091 Nov, [facility] [address] [address]- 3403 Oct, [facility] [id number] [place] [address] 80464- 3445 Oct, [facility] [address] [address]- 5203 Oct, [facility] [id number] [place] [address] 69006- 8577 Oct, [facility] [id number] [place] [address] 81609- 5196 Oct, [facility] [id number] [place] [address] 80753- 4348 Sep, Bipolar 2 disorder F31.81 ; COLLEEN (generalized anxiety disorder) F41.1 ; Attention deficit disorder F90.0 and Panic disorder [episodic paroxysmal anxiety] without agoraphobia F41.0 [facility] [id number] [place] [address] 50804- 6859 Sep, [facility] [id number] [place] [address] 45581- 3599 Sep, [facility] [address] [address]- 7244 Sep, [facility] [id number] [place] [address] 10052- 6393 Aug, [facility] [address] [address]- 0579 Aug, [facility] [address] [address]- 9853 Aug, [facility] [address] 8086 Aug, [facility] [id number] [place] [address] 68734- 9591 Jul, [facility] [address] 2793 Jul, [facility] [address] [address]- 9210 Jul, [facility] [id number] [place] [address] 96367- 3207 Jun, [facility] [id number] [place] [address] 09945- 2721 Jun, Bipolar 2 disorder F31.81 ; Attention deficit disorder F90.0 ; COLLEEN (generalized anxiety disorder) F41.1 and Panic disorder [episodic paroxysmal anxiety] without agoraphobia F41.0 [facility] [address] 08493- 0029 Jun, [facility] [id number] [place] [address] 75249- 0065 Jun, [place] [id number] [place] [address] 81592- 5260 Jun, Right foot pain M79.671 and Nausea and vomiting in adult R11.2 [facility] [id number] [place] [address] 80026- 9350 May, [facility] [id number] [place] [address] 31287- 6292 May, Other sinusitis, unspecified chronicity J32.9 ; Environmental allergies Z91.09 ; Other chronic pain G89.29 and Sacrococcygeal disorders, not elsewhere classified M53.3 [facility] WALK IN [facility] [id number] [place] [address] 25662 -5115 May, Acute non-recurrent pansinusitis J01.40 and Gastroenteritis K52.9 [facility] [id number] [place] [address] 90937- 1299 May, [facility] [address] 60236- 5920 May, [facility] [id number] [place] [address] 83217- 2541 Apr, Bronchitis J40 [facility] [id number] [place] [address] 03223- 0598 Apr, [facility] [address] [address]- 5104 Apr, [facility] [address] [address]- 2621 Apr, [facility] [address] [address] -9480 Apr, Nausea and vomiting in adult R11.2 [facility] [id number] [place] [address] 20651- 7096 Apr, Nausea and vomiting in adult R11.2 [facility] [id number] [place] [address] 19865- 0305 Apr, Bipolar 2 disorder F31.81 ; Generalized anxiety disorder F41.1 ; Panic disorder [episodic paroxysmal anxiety] without agoraphobia F41.0 ; Attention deficit disorder F90.0 and COLLEEN (generalized anxiety disorder) F41.1 [facility] [address] [address]- 4080 Apr, [facility] [id number] [place] [address] 36270- 2875 Mar, [facility] [address] [address]- 5369 Mar, [facility] [address] [address]- 1113 Mar, [facility] [address] [address]- 9461 Mar, Bipolar 2 disorder F31.81 ; Attention deficit disorder F90.0 ; COLLEEN (generalized anxiety disorder) F41.1 and Panic disorder [episodic paroxysmal anxiety] without agoraphobia F41.0 [facility] [address] [address]- 2801 Mar, [facility] [address] [address]- 0319 Feb, Bipolar 2 disorder F31.81 ; Generalized anxiety disorder F41.1 and Attention deficit disorder F90.0 [facility] [id number] [place] [address] 51181- 1047 Feb, Generalized anxiety disorder F41.1 [facility] [id number] [place] [address] 07935- 2404 Feb, Generalized anxiety disorder F41.1 ; Attention deficit disorder F90.0 and Bipolar 2 disorder F31.81 [facility] [id number] [place] [address] 89792- 1352 Feb, Bipolar 2 disorder F31.81 ; Generalized anxiety disorder F41.1 ; Attention deficit disorder F90.0 and Insomnia, unspecified type G47.00 [facility] [id number] [place] [address] 28201- 7004 Feb, Excessive sweating R61 and Breast lump in upper outer quadrant N63 [facility] WALK IN [facility] [id number] [place] [address] 36546 -7417 January, Low back pain M54.5 ; Other chronic pain G89.29 and Urinary tract infection, site unspecified N39.0 [facility] [id number] [place] [address] 83365- 2655 January, Bipolar II disorder F31.81 [facility] [id number] [place] [address] 33736- 6961 January, [facility] [id number] [place] [address] 25754- 7172 January, Insomnia, unspecified type G47.00 and Grief F43.20 [facility] [id number] [place] [address] 67714- 7397 January, [facility] [id number] [place] [address] 27136- 2698 Dec, [facility] [id number] [place] [address] 65359- 5846 Dec, [facility] [id number] [place] [address] 56565- 2175 Dec, Bipolar 2 disorder F31.81 ; Generalized anxiety disorder F41.1 and Attention deficit disorder F90.0 [facility] [id number] [place] [address] 11307- 1785 Dec, Sinusitis J32.9 [facility] [address] 73391- 0886 Dec, Sinusitis J32.9 and Hypothyroid E03.9 [place] [address] 96109- 2505 Dec, [facility] IN [facility] [address] 51513 -0009 Dec, Cough R05 and Allergic rhinitis J30.9 [facility] [address] 81870- 5963 Nov, Hypertension I10 ; Obesity E66.9 and Acne L70.9 [place] [address] 84945- 8082 Nov, [place] [address] 65923- 4413 Oct, [place] [address] 83785- 7561 Oct, [place] [address] 48150- 9863 Oct, [place] [address] 37799- 9318 Oct, [place] [address] 00093- 0709 Sep, Lymphadenitis I88.9 ; Essential hypertension I10 and Acne, unspecified acne type L70.9 [place] [address] 74633- 2393 Sep, [facility] [address] [address]- 2213 Sep, [facility] [id number] [place] [address] 51412- 0727 Sep, [facility] [id number] [place] [address] 90703- 0919 Sep, Acquired hypothyroidism E03.9 [facility] [id number] [place] [address] 76904- 9034 Aug, Acquired hypothyroidism E03.9 [facility] [id number] [place] [address] 69765- 6922 Aug, Furuncle L02.92 [facility] [id number] [place] [address] 24460- 5272 Aug, [facility] [id number] [place] [address] 83329- 1659 Aug, Bipolar 2 disorder F31.81 ; Generalized anxiety disorder F41.1 ; Attention deficit disorder F90.0 and Obesity E66.9 [facility] [id number] [place] [address] 51615- 4018 Aug, [facility] [id number] [place] [address] 43664- 4982 Aug, [facility] [id number] [place] [address] 25696- 7104 Aug, Acquired hypothyroidism E03.9 [facility] [id number] [place] [address] 48285- 3432 Jul, Acquired hypothyroidism E03.9 ; Upper respiratory tract infection, unspecified type J06.9 and Nonintractable migraine, unspecified migraine type G43.009 [facility] [address] [address]- [address] 14 Jun, 2015 Acute pharyngitis, unspecified J02.9 [facility] [address] 1272 May, Bipolar II disorder 296.89 ; Attention deficit disorder of childhood without mention of hyperactivity 314.00 ; Generalized anxiety disorder 300.02 and Morbid obesity with BMI of 45.0-49.9, adult 278.01 [facility] [address] [address]- 1716 May, Sinusitis 473.9 [facility] [id number] [place] [address] 026773- 3189 Apr, [facility] [id number] [place] [address] 06756- 3539 Mar, [facility] [id number] [place] [address] 40668- 4382 Mar, Bipolar II disorder 296.89 ; Generalized anxiety disorder 300.02 ; Obesity, unspecified 278.00 and Attention deficit disorder 314.00 [facility] [address] [address]- 9385 Feb, [facility] [address] [address]- 5423 January, [facility] [address]- 0376 January, [facility] [address] [address]- 0346 January, [facility] [address] [address]- 6166 January, [facility] [address] [address]- 7192 Dec, [facility] [address] [address]- 0046 Dec, [facility] [address] [address]- 0786 Nov, [facility] [address] [place] [address]- 1703 18 Nov, 2014 [facility] [place] [facility] [address] [id number] [place] [address]- 5494 18 Nov, 2014 [facility] [place] [facility] [address] [id number] [place] [address]- 2861 11 Nov, 2014 [facility] [place] [facility] [address] [id number] [place] [address]- 3217 11 Nov, 2014 [facility] [place] [facility] [address] [id number] [place] [address]- 3228 11 Nov, 2014 [facility] [place] [facility] [address] [id number] [place] [address]- 5872 Nov, [facility] [place] [facility] [address] [id number] [place] [address]- 3690 Nov, [facility] [place] [facility] [address] [id number] [place] [address]- 0548 Nov, [facility] [place] [facility] [address] [id number] [place] [address]- 9563 10 Nov, 2014 [facility] [place] [facility] [address] [id number] [place] [address]- 5950 10 Nov, 2014 [facility] [place] [facility] [address] [id number] [place] [address]- 3482 Nov, [facility] [place] [facility] [address] [id number] [place] [address]- 6969 Nov, 2014 [facility] [place] [facility] [address] [id number] [place] [address]- 0036 Nov, [facility] [place] [facility] [address] [id number] [place] [address]- 1098 Oct, [facility] [place] [facility] [address] [id number] [place] [address]- 6026 Oct, [facility] [place] [facility] [address] [id number] [place] [address]- 7046 Oct, 2014 [facility] [place] [facility] [address] [id number] [place] [address]- 6702 Oct, [facility] [place] [facility] [address] [id number] [place] [address]- 2706 Oct, 2014 [facility] [place] [facility] [address] [facility] [id number] [place] [address]- 4194 Oct, 2014 [facility] [place] [facility] [address] [id number] [place] [address]- 2930 Oct, 2014 [facility] [place] [facility] [address] [id number] [place] [address] Oct, 2014 [facility] [place] [facility] [address] [facility] [id number] [place] [address] Oct, [facility] [place] [facility] [address] [facility] [id number] [place] [address] Oct, [facility] [place] [facility] [address] [facility] [id number] [place] [address] Oct, [facility] [place] [facility] [address] [facility] [id number] [place] [address] Oct, [facility] [place] [facility] [address] [facility] [id number] [place] [address] Sep, [facility] [place] [facility] [address] [facility] [id number] [place] [address] Sep, [facility] [place] [facility] [address] [facility] [id number] [address] Sep, [facility] [place] [facility] [address] [id number] [place] [address] Sep, [facility] [place] [facility] [address] [facility] [id number] [place] [address] Sep, [facility] [place] [facility] [address] [facility] [id number] [place] [address] Sep, [facility] [place] [facility] [address] [id number] [place] [address] Sep, [facility] [place] [facility] [address] [id number] [place] [address] Sep, [facility] [place] [facility] [address] [id number] [place] [address] Aug, [facility] [place] [facility] [address] [id number] [place] [address] Aug, [facility] [place] [facility] [address] [id number] [place] [address] Aug, [facility] [place] [facility] [address] [id number] [place] [address] Aug, [facility] [place] [facility] [address] [id number] [place] [address] Aug, [facility] [place] [facility] [address] [id number] [place] [address] Aug, [facility] [place] [facility] [address] [id number] [place] [address] Aug, [facility] [place] [facility] [address] [id number] [place] [address] Aug, [facility] [place] [facility] [address] [id number] [place] [address] Aug, [facility] [place] [facility] [address] [id number] [place] [address] Aug, [facility] [place] [facility] [address] [id number] [place] [address] Aug, [facility] [place] [facility] [address] [id number] [place] [address] Aug, [facility] [place] [facility] [address] [address] [id number] [place] [address] Aug, [facility] [place] [facility] [address] [id number] [place] [address] Aug, [facility] [place] [facility] [address] [id number] [place] [address] Jul, [facility] [place] [facility] [address] [id number] [place] [address]236 Jul, [facility] [place] [facility] [address] [id number] [place] [address] Jul, [facility] [place] [facility] [address] [id number] [place] [address] Jul, [facility] [place] [facility] [address] [id number] [place] [address] 3198 Jul, [facility] [place] [facility] [address] [id number] [place] [address] 1043 Jul, [facility] [place] [facility] [address] [id number] [place] [address] 0634 Jul, [facility] [place] [facility] [address] [id number] [place] [address] 6246 Jul, [facility] [place] [facility] [address] [id number] [place] [address] 3557 Jul, [facility] [place] [facility] [address] [id number] [place] [address] 3585 Jul, [facility] [place] [facility] [address] [id number] [address] Jul, [facility] [place] [facility] [address] [id number] [address] Jul, [facility] [place] [facility] [address] [id number] [place] [address] 31[address] Jun, [facility] [place] [facility] [address] [id number] [address] 118[address] Jun, [facility] [place] [facility] [address] [id number] [address] 15 Jun, 2014 [facility] [place] [facility] [address] [id number] [place] [address]- 5746 14 Jun, 2013 [facility] [place] [facility] [address] [id number] [place] [address]- 5875 14 Jun, 2014 [facility] [place] [facility] [address] [id number] [place] [address]- 1759 14 Jun, 2014 [facility] [place] [facility] [address] [id number] [place] [address]- 0422 14 Jun, 2014 [facility] [place] [facility] [address] [id number] [place] [address]- 3696 13 Jun, 2014 [facility] [place] [facility] [address] [id number] [place] [address]- 5917 10 Jun, 2014 [facility] [place] [facility] [address] [id number] [place] [address]- 9053 10 Jun, 2014 [facility] [place] [facility] [address] [id number] [place] [address]- 6904 09 Jun, 2014 [facility] [place] [facility] [address] [id number] [place] [address]- 8816 09 Jun, 2014 [facility] [place] [facility] [address] [id number] [place] [address]- 9511 06 Jun, 2014 [facility] [place] [facility] [address] [id number] [place] [address]- 4464 06 Jun, 2014 [facility] [place] [facility] [address] [id number] [place] [address] 3201 16 May, 2013 [facility] [place] [facility] [address] [id number] [address] 75[address] 15 May, 2013 [facility] [place] [facility] [address] [id number] [place] [address]- 0112 15 May, 2014 [facility] [place] [facility] [address] [id number] [place] [address]- 8537 15 May, 2013 [facility] [place] [facility] [address] [id number] [place] [address]- 6718 15 May, 2013 [facility] [place] [facility] [address] [id number] [place] [address]- 9435 15 May, 2013 [facility] [place] [facility] [address] [id number] [place] [address]- 0596 15 May, 2013 [facility] [place] [facility] [address] [id number] [place] [address]- 0903 12 May, 2013 [facility] [place] [facility] [address] [id number] [place] [address]- 9877 12 May, 2013 [facility] [place] [facility] [address] [id number] [place] [address]- 9471 10 May, 2013 [facility] [place] [facility] [address] [id number] [place] [address]- 5170 10 May, 2013 [facility] [place] [facility] [address] [id number] [place] [address]- 9078 02 May, 2013 [facility] [place] [facility] [address] [id number] [place] [address]- 0208 02 May, 2013 [facility] [place] [facility] [address] [id number] [place] [address]- 8944 May, [facility] [place] [facility] [address] [id number] [place] [address]- 9876 May, 2013 [facility] [place] [facility] [address] [id number] [place] [address]- 0428 Apr, [facility] [place] [facility] [address] [id number] [place] [address]- 1445 Apr, [facility] [place] [facility] [address] [id number] [place] [address]- 6944 Apr, [facility] [place] [facility] [address] [id number] [place] [address]- 2260 Apr, [facility] [place] [facility] [address] [id number] [place] [address]- 5308 Apr, [facility] [place] [facility] [address] [id number] [place] [address]- 1149 Apr, [facility] [place] [facility] [address] [id number] [place] [address]- 5712 Apr, [facility] [place] [facility] [address] [id number] [place] [address]- 4926 Apr, [facility] [place] [facility] [address] [id number] [place] [address]- 2748 Apr, [facility] [place] [facility] [address] [id number] [place] [address]- 6306 Mar, [facility] [place] [facility] [address] [id number] [place] [address]- 6773 Mar, [facility] [place] [facility] [address] [id number] [place] [address]- 6348 Mar, [facility] [place] [facility] [address] [id number] [place] [address]- 8094 Mar, [facility] [place] [facility] [address] [id number] [place] [address]- 9968 Mar, [facility] [place] [facility] [address] [id number] [place] [address]- 9758 Mar, [facility] [place] [facility] [address] [id number] [place] [address]- 3136 Mar, [facility] [place] [facility] [address] [id number] [place] [address]- 2280 Mar, [facility] [place] [facility] [address] [id number] [place] [address]- 3401 Mar, [facility] [place] [facility] [address] [id number] [place] [address]- 8629 Mar, [facility] [place] [facility] [address] [id number] [place] [address]- 2508 Mar, [facility] [place] [facility] [address] [id number] [place] [address]- 8496 Mar, [facility] [place] [facility] [address] [id number] [place] [address]- 5849 Mar, 2013 [facility] [place] [facility] [address] [id number] [place] [address]- 5171 Mar, 2013 [facility] [place] [facility] [address] [id number] [place] [address]- 2399 Mar, 2013 [facility] [place] [facility] [address] [id number] [place] [address]- 6187 Mar, 2013 [facility] [place] [facility] [address] [id number] [place] [address]- 4582 Mar, [facility] [place] [facility] [address] [id number] [place] [address]- 2525 Mar, [facility] [place] [facility] [address] [id number] [place] [address]- 4717 Feb, [facility] [place] [facility] [address] [id number] [place] [address]- 2755 Feb, [facility] [place] [facility] [address] [id number] [place] [address]- 2300 Feb, [facility] [place] [facility] [address] [id number] [place] [address]- 3275 Feb, [facility] [place] [facility] [address] [id number] [place] [address]- 4051 Feb, [facility] [place] [facility] [address] [id number] [place] [address]- 8777 Feb, [facility] [place] [facility] [address] [id number] [place] [address]- 7935 Feb, [facility] [place] [facility] [address] [id number] [place] [address]- 0385 Feb, [facility] [place] [facility] [address] [id number] [place] [address]- 8161 Feb, [facility] [place] [facility] [address] [id number] [place] [address]- 0467 Feb, [facility] [address] [id number] [place] [address]- 7691 January, [facility] [place] [facility] [address] [id number] [place] [address]- 0510 January, [facility] [place] [facility] [address] [id number] [place] [address]- 9899 January, [facility] [place] [facility] [address] [id number] [place] [address]- 9197 January, [facility] [place] [facility] [address] [id number] [place] [address]- 4949 January, [facility] [place] [facility] [address] [id number] [place] [address]- 4501 January, [facility] [place] [facility] [address] [id number] [place] [address]- 1699 January, [facility] [place] [facility] [address] [id number] [place] [address]- 6401 January, [facility] [place] [facility] [address] [id number] [place] [address]- 0039 January, [facility] [place] [facility] [address] [id number] [place] [address]- 9490 January, [facility] [place] [facility] [address] [id number] [place] [address]- 8538 January, [facility] [place] [facility] [address] [id number] [place] [address]- 5995 January, [facility] [place] [facility] [address] [id number] [place] [address]- 2167 January, [facility] [place] [facility] [address] [id number] [place] [address]- 0057 January, [facility] [place] [facility] [address] [id number] [place] [address] January, [facility] [place] [facility] [address] [id number] [place] [address]- 7037 Dec, [facility] [place] [facility] [address] [id number] [place] [address]- 3517 Dec, [facility] [place] [facility] [address] [id number] [place] [address]- 7754 Dec, [facility] [place] [facility] [address] [facility] [id number] [place] [address]- 0498 Dec, [facility] [place] [facility] [address] [id number] [place] [address]- 6892 Dec, [facility] [place] [facility] [address] [id number] [place] [address]- 4695 Dec, [facility] [place] [facility] [address] [facility] [id number] [place] [address]- 9546 Nov, [facility] [place] [facility] [address] [facility] [id number] [place] [address]- 1896 Nov, [facility] [place] [facility] [address] [facility] [id number] [place] [address]- 4005 Nov, [facility] [place] [facility] [address] [facility] [id number] [place] [address]- 5097 Nov, [facility] [place] [facility] [address] [facility] [id number] [place] [address]- 2905 Nov, [facility] [place] [facility] [address] [facility] [id number] [place] [address]- 8273 Oct, [facility] [place] [facility] [address] [facility] [id number] [place] [address]- 5349 Oct, [facility] [place] [facility] [address] [id number] [place] [address]- 9194 Oct, [facility] [place] [facility] [address] [facility] [id number] [place] [address]- 2847 Oct, [facility] [place] [facility] [address] [facility] [id number] [place] [address]- 7140 Oct, [facility] [place] [facility] [address] [id number] [place] [address]- 9259 Oct, [facility] [place] [facility] [address] [id number] [place] [address]- 3656 Oct, [facility] [place] [facility] [address] [id number] [place] [address]- 2020 Oct, [facility] [place] [facility] [address] [id number] [place] [address]- 6613 Oct, [facility] [place] [facility] [address] [id number] [place] [address]- 0368 Oct, [facility] [place] [facility] [address] [id number] [place] [address]- 2308 Oct, [facility] [place] [facility] [address] [id number] [place] [address]- 3951 Sep, [facility] [place] [facility] [address] [id number] [place] [address]- 7612 Sep, [facility] [place] [facility] [address] [id number] [place] [address]- 3819 Sep, [facility] [place] [facility] [address] [id number] [place] [address]- 8945 Sep, [facility] [place] [facility] [address] [id number] [place] [address]- 9888 Aug, [facility] [place] [facility] [address] [id number] [place] [address]- 8801 Aug, [facility] [place] [facility] [address] [id number] [place] [address]- 8694 Jul, [facility] [place] [facility] [address] [id number] [place] [address]- 1144 Jul, [facility] [place] [facility] [address] [id number] [place] [address]- 4121 Jul, [facility] [place] [facility] [address] [id number] [place] [address] 2546 Jul, [facility] [address] [id number] [place] [address]- 6892 Jul, [facility] [place] [facility] [address] [id number] [place] [address]- 3937 Jun, [facility] [address] [id number] [place] [address]- 4856 Jun, [facility] [place] [facility] [address] [id number] [place] [address]- 4580 May, [facility] [address] [id number] [place] [address]- 8060 Mar, [facility] [place] [facility] [address] [id number] [place] [address]- 5226 Mar, [facility] [address] [id number] [place] [address]- 9258 Mar, [facility] [address] [id number] [place] [address]- 8257 Feb, [facility] [place] [facility] [address] [id number] [place] [address]- 8373 January, [facility] [address] [facility] [id number] [place] [address]- 3041 Dec, [facility] [place] [facility] [address] [id number] [place] [address]- 4295 Nov, [facility] [place] [facility] [address] [id number] [place] [address]- 2547 Nov, [facility] [place] [facility] [address] [id number] [place] [address]- 7382 Nov, [facility] [place] [facility] [address] [id number] [place] [address] 2546 Oct, [facility] [place] [facility] [address] [id number] [place] [address]- 2846 Oct, [facility] [address] [facility] [id number] [place] [address]- 9636 Oct, [facility] [address] [facility] [id number] [place] [address]- 4256 Oct, [facility] [address] [facility] [id number] [place] [address]- 3896 Sep, IMMUNIZATIONS No Known Immunizations SOCIAL HISTORY Never Assessed REASON FOR VISIT High Priority Repository PLAN OF CARE VITAL SIGNS MEDICATIONS Medication Instructions Dosage Frequency Start Date End Date Duration Status Amitriptyline HCl 50 mg Orally Once a day for migraine and sleep Take 1/2 tab for three nights then increase to 1 whole tablet 30 Active Citalopram Hydrobromide 20 mg Orally Once a day 1 tablet 24h Feb, 30 day(s) Active Tizanidine HCl 4 MG Orally 3 times a day 1 tablet as needed 8h Nov, Active Meloxicam 7.5 MG Orally 2 times a day 1 tablet 12h Mar, 30 day( s) Active Guanfacine HCl 2 MG TAKE ONE-HALF TABLET BY MOUTH ONCE DAILY AM; ONE-HALF TABLET AT 2:00PM AND ONE TABLET AT BEDTIME 30 Active RESULTS No Results PROCEDURES No Known [...]
--- OUTSIDE RECORDS SUMMARY | 2018-09-23 22:06 | XMS REPORT ---
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 Name Role Phone ALLNE PATRICK Unavailable PROBLEMS Type Condition ICD9-CM Code HLF70-LQ Code Onset Dates Condition Status SNOMED Code Problem Essential hypertension I10 Active 87148745 Problem Primary insomnia F51.01 Active 8026389 Problem Acquired hypothyroidism E03.9 Active 039488547 Problem Hypothyroidism (acquired) E03.9 Active 835142602 Problem Arthritis M19.90 Active 5178961 Problem Sciatica of right side M54.31 Active 19347583 Problem Migraine with aura and without status migrainosus, not intractable G43.109 Active 2971120 Problem Attention-deficit hyperactivity disorder, predominantly inattentive type F90.0 Active 50853763 Problem Current nonadherence to medical treatment Z91.19 Active 5108244 Problem LGSIL on Pap smear of cervix R87.612 Active 563433014 Problem Postoperative hypothyroidism E89.0 Active 18129243 Problem Generalized anxiety disorder F41.1 Active 62032297 Problem Bipolar 2 disorder F31.81 Active 43660549 Problem Abnormal liver function K76.89 Active 24154133 Problem Acne L70.9 Active 67949999 Problem Obesity E66.9 Active 506487950 Problem Panic disorder [episodic paroxysmal anxiety] without agoraphobia F41.0 Active 98282963 ALLERGIES No Information ENCOUNTERS Encounter Location Date Diagnosis [facility] [id number], [place] [address] Jun, [facility] [address], [place] [address] 113[address] May, [facility] [address], [place] [address] 6[address] May, [facility] [id number], [place] [address]29 May, Arthritis M19.90 [place] [address], [place] [address] Apr, [place] [id number] [place] [address] 60917- 1037 Apr, Generalized anxiety disorder F41.1 ; Arthritis M19.90 ; Hypothyroidism (acquired) E03.9 and Lymph node enlargement R59.9 [place] [id number] [place] [address] 02832- 1432 Apr, Arthritis M19.90 and Sciatica of right side M54.31 [place] [id number] [place] [address] 73541- 8068 Mar, Arthritis M19.90 ; Hypothyroidism (acquired) E03.9 and Lymph node enlargement R59.9 [place] [id number] [place] [address] 82498- 5524 Mar, Well woman exam with routine gynecological exam Z01.419 ; control counseling Z30.09 ; Acquired hypothyroidism E03.9 ; Sciatica of right side M54.31 ; Breast tenderness N64.4 and Generalized anxiety disorder F41.1 [place] [id number] [place] [address] 28475- 8460 Mar, [place] [id number] [place] [address] 33581- 9316 Feb, Bipolar 2 disorder F31.81 ; Generalized anxiety disorder F41.1 ; Attention-deficit hyperactivity disorder, predominantly inattentive type F90.0 and Current nonadherence to medical treatment Z91.19 [place] [id number] [place] [address] 84176- 4170 Feb, [place] [id number] [place] [address] 16482- 6099 Nov, Normal physical exam Z00.00 and Enlarged lymph node R59.9 [place] [id number] [place] [address] 62014- 1073 Nov, Enlarged lymph node R59.9 ; Abnormal liver function K76.89 and Hypothyroid E03.9 [place] [id number] [place] [address] 21119- 5199 Oct, Bipolar 2 disorder F31.81 [place] [id number] [place] [address] 67499- 6324 Oct, Sciatica of right side M54.31 and Essential hypertension I10 [facility] [id number] [place] [address] 58623- 3047 Oct, [place] [id number] [place] [address] 60325- 1724 Aug, Hypothyroid E03.9 [place] [id number] [place] [address] 84432- 3966 Aug, [place] [id number] [place] [address] 23469- 7976 Aug, Bipolar 2 disorder F31.81 [place] [id number] [place] [address] 06913- 8240 Aug, Abnormal liver function K76.89 [place] [id number] [place] [address] 39080- 1710 Jul, Bipolar 2 disorder F31.81 [facility] [id number] [place] [address] 70470 -0128 Jul, [facility] [id number] [place] [address] 03758- 3052 Jul, Bipolar 2 disorder F31.81 ; Generalized anxiety disorder F41.1 ; Attention-deficit hyperactivity disorder, predominantly inattentive type F90.0 and Current nonadherence to medical treatment Z91.19 [facility] [address], [place] [address] 14 Jul, 2017 Essential hypertension I10 ; Other viral agents as the cause of diseases classified elsewhere B97.89 ; Acute upper respiratory infection, unspecified J06.9 and BMI 40.0-44.9, adult Z68.41 [place] [id number] [place] [address] 58578- 7322 Jul, [facility] [id number] [place] [address] 27166- 2321 Jul, [place] [id number] [place] [address] 70929- 8244 Jun, [place] [id number] [place] [address] 81718- 2493 Jun, [place] [address] 13483- 5534 Jun, Dysuria R30.0 ; Urinary tract infection, site not specified N39.0 ; Hematuria, unspecified R31.9 ; Sciatica of right side M54.31 ; Migraine with aura and without status migrainosus, not intractable G43.109 ; Primary insomnia F51.01 ; Essential hypertension I10 and Acquired hypothyroidism E03.9 [place] [id number] [place] [address] 53995- 3572 Jun, Bipolar 2 disorder F31.81 [place] [id number] [place] [address] 77755- 4189 Jun, Bipolar 2 disorder F31.81 [place] [id number] [place] [address] 32318- 3981 May, Sore throat J02.9 ; Acute serous otitis media of left ear, recurrence not specified H65.02 and Hypertension I10 [place] [id number] [place] [address] 50401- 1977 May, Bipolar 2 disorder F31.81 [place] [id number] [place] [address] 71243- 4816 Apr, [place] [id number] [place] [address] 23782- 9869 Apr, Bipolar 2 disorder F31.81 [facility] [address], [place] [address]- 8699 Mar, [facility] [id number] [place] [address] 26854- 2538 Feb, Bipolar 2 disorder F31.81 ; Attention deficit disorder F90.0 ; COLLEEN (generalized anxiety disorder) F41.1 and Panic disorder [episodic paroxysmal anxiety] without agoraphobia F41.0 [facility] [id number] [place] [address] 89743- 4417 January, Bipolar 2 disorder F31.81 [facility] [id number] [place] [address] 35910- 1743 Dec, [facility] [id number] [place] [address] 96245- 6361 Dec, [facility] [id number] [place] [address] 74131- 3896 Dec, [facility] [id number] [place] [address] 98172- 1156 Dec, Generalized anxiety disorder F41.1 ; Bipolar 2 disorder F31.81 and Panic disorder [episodic paroxysmal anxiety] without agoraphobia F41.0 [facility] [address], [place] [address]- 3113 Dec, [facility] [id number] [place] [address] 39977- 0887 Dec, [facility] [address], [place] [address]- 5422 Nov, [facility] [id number] [place] [address] 80217- 9671 Nov, [facility] [address], [place] [address]- 5885 Nov, [facility] [id number] [place] [address] 89544- 3868 Oct, [facility] [address], [place] [address]- 3197 Oct, [facility] [id number] [place] [address], [place] [address]- 1622 Oct, [facility] [id number] [address]- 4718 Oct, [facility] [id number] [place] [address] 84667- 8999 Oct, [facility] [id number] [place] [address] 15544- 8583 Sep, Bipolar 2 disorder F31.81 ; COLLEEN (generalized anxiety disorder) F41.1 ; Attention deficit disorder F90.0 and Panic disorder [episodic paroxysmal anxiety] without agoraphobia F41.0 [facility] [id number] [place] [address] 00437- 6269 Sep, [facility] [address], [place] [address]- 8827 Sep, [facility] [id number] [place] [address] 68062- 1950 Sep, [facility] [address], [place] [address]- 8712 Aug, [facility] [id number] [place] [address]- 5334 Aug, [facility] [address], [place] [address]- 3524 Aug, [facility] [address] 8116 Aug, [facility] [address], [place] [address]- 6911 Jul, [facility] [address], [place] [address]- 2089 Jul, [facility] [id number] [place] [address] 77401- 0500 Jul, [facility] [id number] [place] [address] 64609- 0216 Jun, [facility] [id number] [place] [address] 88856- 8621 Jun, Bipolar 2 disorder F31.81 ; Attention deficit disorder F90.0 ; COLLEEN (generalized anxiety disorder) F41.1 and Panic disorder [episodic paroxysmal anxiety] without agoraphobia F41.0 [facility] [id number] [place] [address] 09067- 8838 Jun, [facility] [id number] [place] [address] 00973- 5560 Jun, [facility] [id number] [place] [address] 18514- 5543 Jun, Right foot pain M79.671 and Nausea and vomiting in adult R11.2 [facility] [id number] [place] [address] 83311- 3079 May, [facility] [id number] [place] [address] 03623- 1032 May, Other sinusitis, unspecified chronicity J32.9 ; Environmental allergies Z91.09 ; Other chronic pain G89.29 and Sacrococcygeal disorders, not elsewhere classified M53.3 [facility] [id number] [place] [address] 15303 -5161 May, Acute non-recurrent pansinusitis J01.40 and Gastroenteritis K52.9 [facility] [id number] [place] [address] 72927- 8697 May, [facility] [id number] [place] [address] 61021- 6446 May, [facility] [id number] [place] [address] 89301- 1750 Apr, Bronchitis J40 [facility] [address], [place] [address]- 1187 Apr, [facility] [address], [place] [address]- 8946 Apr, [facility] [address], [place] [address]- 2990 Apr, [facility] [address], [place] [address] -2496 Apr, Nausea and vomiting in adult R11.2 [facility] [id number] [place] [address] 35243- 9604 Apr, Nausea and vomiting in adult R11.2 [facility] [address], [place] [address]- 4970 Apr, Bipolar 2 disorder F31.81 ; Generalized anxiety disorder F41.1 ; Panic disorder [episodic paroxysmal anxiety] without agoraphobia F41.0 ; Attention deficit disorder F90.0 and COLLEEN (generalized anxiety disorder) F41.1 [facility] [address], [place] [address]- 9198 Apr, [facility] [address], [place] [address]- 2173 Mar, [facility] [address], [place] [address]- 5439 Mar, [facility] [address], [place] [address]- 4552 Mar, [facility] [address], [place] [address]- 2403 Mar, Bipolar 2 disorder F31.81 ; Attention deficit disorder F90.0 ; COLLEEN (generalized anxiety disorder) F41.1 and Panic disorder [episodic paroxysmal anxiety] without agoraphobia F41.0 [facility] [address], [place] [address]- 4375 Mar, [facility] [id number] [place] [address] 85828- 3974 Feb, Bipolar 2 disorder F31.81 ; Generalized anxiety disorder F41.1 and Attention deficit disorder F90.0 [facility] [id number] [place] [address] 57958- 0919 Feb, Generalized anxiety disorder F41.1 [facility] [id number] [place] [address] 09342- 1065 Feb, Generalized anxiety disorder F41.1 ; Attention deficit disorder F90.0 and Bipolar 2 disorder F31.81 [place] [id number] [place] [address] 93455- 3545 Feb, Bipolar 2 disorder F31.81 ; Generalized anxiety disorder F41.1 ; Attention deficit disorder F90.0 and Insomnia, unspecified type G47.00 [facility] [id number] [place] [address] 55343- 9743 Feb, Excessive sweating R61 and Breast lump in upper outer quadrant N63 [facility] [id number] [place] [address] 85868 -5357 January, Low back pain M54.5 ; Other chronic pain G89.29 and Urinary tract infection, site unspecified N39.0 [facility] [address] [place] [address] 44998- 9537 January, Bipolar II disorder F31.81 [facility] [id number] [place] [address] 87153- 2638 January, [facility] [id number] [place] [address] 82406- 0697 January, Insomnia, unspecified type G47.00 and Grief F43.20 [facility] [id number] [place] [address] 95890- 1901 January, [facility] [id number] [place] [address] 88933- 0910 Dec, [facility] [id number] [place] [address] 70272- 9332 Dec, [facility] [address] 17358- 3535 Dec, Bipolar 2 disorder F31.81 ; Generalized anxiety disorder F41.1 and Attention deficit disorder F90.0 [facility] [address] 45099- 9006 Dec, Sinusitis J32.9 [facility] [address] 70987- 5194 Dec, Sinusitis J32.9 and Hypothyroid E03.9 [facility] [id number] [place] [address] 92106- 3011 Dec, [facility] [address] 77212 -2560 Dec, Cough R05 and Allergic rhinitis J30.9 [facility] [id number] [place] [address] 24033- 9623 Nov, Hypertension I10 ; Obesity E66.9 and Acne L70.9 [facility] [id number] [place] [address] 51413- 6140 Nov, [facility] [id number] [place] [address] 86833- 7122 Oct, [facility] [address] 45977- 2015 Oct, [facility] [id number] [place] [address] 29843- 4145 Oct, [facility] [id number] [place] [address] 16968- 2038 Oct, [facility] [id number] [place] [address] 73780- 5535 Sep, Lymphadenitis I88.9 ; Essential hypertension I10 and Acne, unspecified acne type L70.9 [facility] [id number] [place] [address] 90250- 2279 Sep, [facility] [id number] [place] [address] 93359- 9972 Sep, [facility] [id number] [place] [address] 00037- 4401 Sep, [facility] [address] 86385- 5668 Sep, Acquired hypothyroidism E03.9 [facility] [address] 81880- 6298 Aug, Acquired hypothyroidism E03.9 [facility] [id number] [place] [address] 97661- 2447 Aug, Furuncle L02.92 [facility] [id number] [place] [address] 24347- 2528 Aug, [facility] [id number] [place] [address] 36290- 9982 Aug, Bipolar 2 disorder F31.81 ; Generalized anxiety disorder F41.1 ; Attention deficit disorder F90.0 and Obesity E66.9 [facility] [place] [id number] [place] [address] 01546- 9537 Aug, [facility] [place] [id number] [place] [address] 19963- 3347 Aug, [facility] [place] [id number] [place] [address] [phone]- 2244 Aug, Acquired hypothyroidism E03.9 [facility] [place] [id number] [place] [address] 03825- 0016 Jul, Acquired hypothyroidism E03.9 ; Upper respiratory tract infection, unspecified type J06.9 and Nonintractable migraine, unspecified migraine type G43.009 [facility] [place] [address] [address] Jun, Acute pharyngitis, unspecified J02.9 [facility] [place] [id number] [place] [address] [phone]- 0579 May, Bipolar II disorder 296.89 ; Attention deficit disorder of childhood without mention of hyperactivity 314.00 ; Generalized anxiety disorder 300.02 and Morbid obesity with BMI of 45.0-49.9, adult 278.01 [facility] [place] [id number] [place] [address] [phone]- 0525 May, Sinusitis 473.9 [facility] [place] [id number] [place] [address] [phone]- 4114 Apr, [facility] [place] [id number] [place] [address] 24156- 2078 Mar, [facility] [place] [id number] [place] [address] 86118- 8369 Mar, Bipolar II disorder 296.89 ; Generalized anxiety disorder 300.02 ; Obesity, unspecified 278.00 and Attention deficit disorder 314.00 [facility] [place] [id number] [place] [address] Feb, [facility] [place] [id number] [place] [address] [phone] January, [facility] [place] [id number] [place] [address] January, [facility] [place] [id number] [id number] January, [facility] [place] [id number] [place] [address] January, [facility] [place] [id number] [place] [address] 49754- 6357 Dec, [facility] [place] [id number] [place] [address] Dec, [facility] [place] [id number] [place] [address] 30 Nov, 2014 [facility] [place] [facility] [address] [id number] [place] [address] 18 Nov, 2014 [facility] [place] [facility] [address] [id number] [place] [address] 18 Nov, 2014 [facility] [place] [facility] [address] [id number] [place] [address] 5414 11 Nov, 2014 [facility] [facility] [address] [id number] [place] [address] 11 Nov, 2014 [facility] [place] [facility] [address] [id number] [place] [address] Nov, [facility] [place] [facility] [address] [id number] [place] [address] 2959 Nov, [facility] [place] [facility] [address] [id number] [place] [address]- 5[address] Nov, [facility] [place] [facility] [address] [id number] [place] [address]- 4289 11 Nov, 2014 [facility] [place] [facility] [address] [id number] [place] [address]- 6321 Nov, [facility] [place] [facility] [address] [id number] [place] [address]- 9941 10 Nov, 2014 [facility] [place] [facility] [address] [id number] [place] [address] 2511 Nov, [facility] [place] [facility] [address] [id number] [place] [address]- 0713 Nov, [facility] [place] [facility] [address] [id number] [place] [address]- 9763 Nov, [facility] [place] [facility] [address] [id number] [place] [address]- 8016 Oct, [facility] [place] [facility] [address] [id number] [place] [address]- 7089 Oct, [facility] [place] [facility] [address] [id number] [place] [address]- 1732 Oct, 2014 [facility] [place] [facility] [address] [id number] [place] [address] 3808 Oct, 2014 [facility] [place] [facility] [address] [facility] [id number] [place] [address]- 4096 Oct, 2014 [facility] [place] [facility] [address] [id number] [place] [address]- 9539 Oct, 2014 [facility] [place] [facility] [address] [id number] [place] [address]- 3295 Oct, 2014 [facility] [place] [facility] [address] [facility] [id number] [place] [address]- 2582 Oct, 2014 [facility] [place] [facility] [address] [facility] [id number] [place] [address]- 3545 Oct, [facility] [place] [facility] [address] [id number] [place] [address]- 3920 Oct, [facility] [place] [facility] [address] [facility] [id number] [place] [address]- 4289 Oct, [facility] [place] [facility] [address] [facility] [id number] [place] [address]- 7797 Oct, [facility] [place] [facility] [address] [facility] [id number] [place] [address]- 0286 Sep, [facility] [place] [facility] [address] [facility] [id number], [place] [address]- 20[address] Sep, [facility] [place] [facility] [address] [id number] [place] [address]- 0654 Sep, [facility] [facility] [address] [facility] [id number] [place] [address]- 2317 Sep, [facility] [place] [facility] [address] [facility] [id number] [place] [address]- 1557 Sep, [facility] [place] [facility] [address] [id number] [place] [address]- 9604 Sep, [facility] [place] [facility] [address] [id number] [place] [address]- 3890 Sep, [facility] [place] [facility] [address] [id number] [place] [address]- 7976 Sep, [facility] [address] [id number] [place] [address]- 1094 Aug, [facility] [place] [address] [id number] [place] [address]- 4593 Aug, [facility] [place] [facility] [address] [id number] [place] [address]- 8599 Aug, [facility] [place] [facility] [address] [id number] [place] [address]- 6282 Aug, [facility] [place] [facility] [address] [id number] [place] [address]- 7557 Aug, [facility] [place] [facility] [address] [id number] [place] [address]- 6509 Aug, [facility] [place] [facility] [address] [id number] [place] [address]- 6713 Aug, [facility] [place] [facility] [address] [id number] [place] [address]- 0482 Aug, [facility] [place] [facility] [address] [id number] [place] [address]- 4870 Aug, [facility] [place] [facility] [address] [id number] [place] [address]- 6911 Aug, [facility] [address] [id number] [place] [address]- 7596 Aug, [facility] [facility] [address] [id number] [place] [address]- 3486 Aug, [facility] [address] [id number] [place] [address] 3801 Aug, [facility] [address] [id number] [place] [address]- 2605 Aug, [facility] [address] [id number] [place] [address]- 8939 Jul, [facility] [address] [id number] [place] [address]- 3168 Jul, [facility] [address] [id number] [place] [address]- 5636 Jul, [facility] [facility] [address] [id number] [place] [address]- 1241 Jul, [facility] [place] [facility] [address] [id number] [place] [address]- 6172 Jul, [facility] [address] [id number] [place] [address]- 0843 Jul, [facility] [address] [id number] [place] [address]- 5852 Jul, [facility] [facility] [address] [id number] [place] [address]- 5412 Jul, [facility] [address] [id number] [place] [address]- 3143 Jul, [facility] [address] [id number], [place] [address]- 5220 Jul, [facility] [address] [id number], [place] [address]- 5059 Jul, [facility] [address] [id number], [place] [address]- 1266 Jul, [facility] [address] [id number], [place] [address]- 0018 Jun, [facility] [address] [id number], [place] [address]- 5379 Jun, [facility] [address] [id number] [place] [address]- 2851 15 Jun, 2014 [facility] [address] [id number] [place] [address]- 3074 14 Jun, 2014 [facility] [address] [id number] [place] [address]- 6582 14 Jun, 2014 [facility] [address] [id number] [place] [address]- 9236 14 Jun, 2014 [facility] [address] [id number] [place] [address]- 1823 14 Jun, 2014 [facility] [address] [id number] [place] [address]- 6874 13 Jun, 2014 [facility] [address] [id number] [place] [address]- 7836 10 Jun, 2014 [facility] [address] [id number] [place] [address]- 6633 10 Jun, 2014 [facility] [address] [id number] [place] [address]- 8362 09 Jun, 2014 [facility] [address] [id number] [place] [address]- 8295 09 Jun, 2014 [facility] [address] [id number] [place] [address]- 3278 06 Jun, 2014 [facility] [address] [id number] [place] [address]- 0296 06 Jun, 2014 [facility] [address] [id number], [place] [address]- 3087 16 May, 2013 [facility] [address] [id number] [place] [address]- 5918 15 May, 2014 [facility] [address] [id number] [place] [address]- 4426 15 May, 2013 [facility] [address] [id number] [place] [address]- 9195 15 May, 2013 [facility] [address] [id number] [place] [address]- 9869 15 May, 2013 [facility] [address] [id number] [place] [address]- 4289 15 May, 2013 [facility] [address] [id number] [place] [address]- 1316 15 May, 2013 [facility] [address] [id number] [place] [address]- 7450 12 May, 2013 [facility] [address] [id number] [place] [address]- 4368 12 May, 2013 [facility] [address] [id number] [place] [address]- 7638 10 May, 2013 [facility] [address] [id number] [place] [address]- 8974 10 May, 2013 [facility] [address] [id number] [place] [address]- 3177 02 May, 2013 [facility] [address] [id number] [place] [address]- 1612 02 May, 2013 [facility] [address] [id number] [place] [address]- 7259 02 May, 2013 [facility] [address] [id number] [place] [address]- 5112 02 May, 2013 [facility] [address] [id number] [place] [address]- 0838 Apr, [facility] [address] [id number] [place] [address]- 5865 Apr, [facility] [address] [id number] [place] [address]- 1667 Apr, [facility] [address] [id number] [place] [address]- 9755 14 Apr, 2014 [facility] [address] [id number] [place] [address]- 9042 Apr, [facility] [address] [id number] [place] [address]- 5726 Apr, [facility] [address] [id number] [place] [address]- 6684 Apr, [facility] [address] [id number] [place] [address]- 0363 Apr, [facility] [address] [id number] [place] [address]- 0979 Apr, [facility] [address] [id number] [place] [address]- 1991 Mar, [facility] [address] [id number] [place] [address]- 6368 Mar, [facility] [address] [id number] [place] [address]- 3453 Mar, [facility] [address] [id number] [place] [address]- 9678 Mar, [facility] [address] [id number] [place] [address]- 6662 Mar, [facility] [address] [id number] [place] [address]- 8753 Mar, [facility] [address] [id number] [place] [address]- 0832 Mar, [facility] [address] [id number] [place] [address]- 3644 Mar, [facility] [address] [id number] [place] [address]- 6503 Mar, [facility] [address] [id number] [place] [address]- 0000 Mar, [facility] [address] [id number] [place] [address]- 6805 Mar, [facility] [address] [id number] [place] [address]- 6079 Mar, 2013 [facility] [address] [id number] [place] [address]- 5601 Mar, 2013 [facility] [address] [id number] [place] [address]- 7313 Mar, 2013 [facility] [address] [id number] [place] [address]- 2033 Mar, 2013 [facility] [address] [id number] [place] [address]- 6494 Mar, 2013 [facility] [facility] [address] [id number] [place] [address]- 1751 Mar, [facility] [facility] [address] [id number] [place] [address]- 2275 Mar, [facility] [facility] [address] [id number] [place] [address]- 7174 Feb, [facility] [address] [id number] [place] [address]- 1381 Feb, [facility] [address] [id number] [place] [address]- 0141 Feb, [facility] [address] [id number] [place] [address]- 2639 Feb, [facility] [address] [id number] [place] [address]- 6702 Feb, [facility] [address] [id number] [place] [address]- 4029 Feb, [facility] [address] [id number] [place] [address]- 0464 Feb, [facility] [address] [id number] [place] [address]- 4196 Feb, [facility] [address] [id number] [place] [address]- 4716 Feb, [facility] [address] [id number] [place] [address]- 5221 Feb, [facility] [address] [id number] [place] [address]- 6857 January, [facility] [address] [id number] [place] [address]- 4342 January, [facility] [address] [id number] [place] [address]- 2345 January, [facility] [address] [id number] [place] [address]- 5836 January, [facility] [facility] [address] [id number] [place] [address]- 2239 January, [facility] [address] [id number] [place] [address]- 4693 January, [facility] [address] [id number] [place] [address]- 4915 January, [facility] [place] [address] [id number] [place] [address]- 8397 January, [facility] [place] [facility] [address] [id number] [place] [address]- 4712 January, [facility] [address] [id number] [place] [address]- 9321 January, [facility] [address] [id number] [place] [address]- 5554 January, [facility] [place] [facility] [address] [id number] [place] [address]- 9483 January, [facility] [address] [id number] [place] [address]- 8884 January, [facility] [address] [id number] [place]26 January, [facility] [place] [facility] [address] [id number] [place] [address]- 2038 January, [facility] [place] [facility] [address] [id number] [place] [address]- 8676 Dec, [facility] [address] [id number] [place] [address]- 6681 Dec, [facility] [address] [facility] [id number] [place] [address]- 7863 Dec, [facility] [place] [facility] [address] [id number] [place] [address]- 5075 Dec, [facility] [place] [facility] [address] [id number] [place] [address]- 7272 Dec, [facility] [place] [facility] [address] [facility] [id number] [place] [address]- 8612 Dec, [facility] [place] [facility] [address] [facility] [id number] [place] [address]- 8391 Nov, [facility] [place] [facility] [address] [facility] [id number] [place] [address]- 8603 Nov, [facility] [place] [facility] [address] [facility] [id number] [place] [address]- 2495 Nov, [facility] [place] [facility] [address] [facility] [id number] [place] [address]- 8313 Nov, [facility] [place] [facility] [address] [facility] [id number] [place] [address]- 5537 Nov, [facility] [place] [facility] [address] [facility] [id number] [place] [address]- 3398 Oct, [facility] [place] [facility] [address] [id number] [place] [address]- 8614 Oct, [facility] [place] [facility] [address] [facility] [id number] [place] [address]- 2856 Oct, [facility] [place] [facility] [address] [facility] [id number] [place] [address]- 0267 Oct, [facility] [place] [facility] [address] [id number] [place] [address]- 3225 10 Oct, 2013 [facility] [place] [facility] [address] [id number] [place] [address]- 7747 Oct, [facility] [place] [facility] [address] [id number] [place] [address]- 9868 Oct, [facility] [place] [facility] [address] [id number] [place] [address]- 4963 Oct, [facility] [place] [facility] [address] [id number] [place] [address]- 3389 Oct, [facility] [place] [facility] [address] [id number] [place] [address]- 2993 Oct, [facility] [place] [facility] [address] [id number] [place] [address]- 0652 Oct, [facility] [place] [facility] [address] [id number] [place] [address]- 1900 Sep, [facility] [place] [facility] [address] [id number] [place] [address]- 1737 Sep, [facility] [place] [facility] [address] [id number] [place] [address]- 3456 Sep, [facility] [place] [facility] [address] [id number] [place] [address]- 7055 Sep, [facility] [place] [facility] [address] [id number] [place] [address]- 8902 Aug, [facility] [place] [facility] [address] [id number] [place] [address]- 5493 Aug, [facility] [place] [facility] [address] [id number] [place] [address]- 9556 Jul, [facility] [place] [facility] [address] [id number] [place] [address]- 6778 Jul, [facility] [place] [facility] [address] [id number] [place] [address] 2546 Jul, [facility] [address] [id number] [place] [address]- 5794 Jul, [facility] [place] [facility] [address] [id number] [place] [address] 2546 Jul, [facility] [address] [id number] [place] [address]- 4256 Jun, [facility] [place] [facility] [address] [id number] [place] [address]- 5482 Jun, [facility] [address] [id number] [place] [address]- 0068 May, [facility] [place] [facility] [address] [id number] [place] [address]- 4889 Mar, [facility] [address] [id number] [place] [address]- 7814 Mar, [facility] [address] [id number] [place] [address]- 8637 Mar, [facility] [address] [id number] [place] [address]- 6040 Feb, [facility] [address] [facility] [id number] [place] [address]- 5874 January, [facility] [address] [id number] [place] [address]- 7453 Dec, [facility] [place] [facility] [address] [id number] [place] [address]- 254 Nov, [facility] [place] [facility] [address] [id number] [place] [address]- 5040 Nov, [facility] [place] [facility] [address] [id number] [place] [address]- 2546 Nov, [facility] [place] [facility] [address] [id number] [place] [address]- 4267 Oct, [facility] [address] [facility] [id number], [place] [address]- 2546 Oct, [facility] [address] [facility] [id number], [place] [address]- 2546 Oct, [facility] [place] [address] [facility] [id number], [place] [address] Oct, [facility] [place] [address] [facility] [id number], [place] [address] Sep, IMMUNIZATIONS No Known Immunizations SOCIAL HISTORY Never Assessed REASON FOR VISIT lab results PLAN OF CARE VITAL SIGNS MEDICATIONS Medication Instructions Dosage Frequency Start Date End Date Duration Status Zithromax Z-Bryant 250 MG Orally Once a day 2 tablets on the first day, then 1 tablet daily for 4 days 24h Apr, Apr, 5 day(s) Active RESULTS No Results PROCEDURES No [...]
--- OUTSIDE RECORDS SUMMARY | 2018-09-23 22:06 | XMS REPORT ---
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 Name Role Phone ALLEN PATRICK Unavailable PROBLEMS Type Condition ICD9-CM Code [id number] Code Onset Dates Condition Status SNOMED Code Problem Essential hypertension I10 Active 70632112 Problem Primary insomnia F51.01 Active 8135092 Problem Acquired hypothyroidism E03.9 Active 913870858 Problem Hypothyroidism (acquired) E03.9 Active 362682412 Problem Arthritis M19.90 Active 7901859 Problem Sciatica of right side M54.31 Active 40246146 Problem Migraine with aura and without status migrainosus, not intractable G43.109 Active 8393422 Problem Attention-deficit hyperactivity disorder, predominantly inattentive type F90.0 Active 35153292 Problem Current nonadherence to medical treatment Z91.19 Active 7491653 Problem LGSIL on Pap smear of cervix R87.612 Active 434038742 Problem Postoperative hypothyroidism E89.0 Active 39455028 Problem Generalized anxiety disorder F41.1 Active 53058441 Problem Bipolar 2 disorder F31.81 Active 02586996 Problem Abnormal liver function K76.89 Active 00317955 Problem Acne L70.9 Active 02411349 Problem Obesity E66.9 Active 996305444 Problem Panic disorder [episodic paroxysmal anxiety] without agoraphobia F41.0 Active 18970794 ALLERGIES Substance Reaction Event Type Date Status Sulfacetamide Sodium Unknown Drug Allergy Apr, Active Penicillin V Potassium hives Drug Allergy Apr, Active Benzodiazepines Failed UDS Non Drug Allergy Apr, Active Hydrocodone Failed UDS Non Drug Allergy Apr, Active ENCOUNTERS Encounter Location Date Diagnosis [facility] [address] [facility] [id number], [place] [address] Jun, [facility] [address] [facility] [id number], [place] [address] May, [place] [address], [place] [address] May, [place] [address] [place] [id number] [place] [address] 54822- 3193 May, Arthritis M19.90 [place] [address] [place] [id number] [place] [address] 01923- 1427 Apr, [place] [address] [place] [id number] [place] [address] 41531- 1710 Apr, Generalized anxiety disorder F41.1 ; Arthritis M19.90 ; Hypothyroidism (acquired) E03.9 and Lymph node enlargement R59.9 [place] [address] [place] [id number] [place] [address] 78985- 2050 Apr, Arthritis M19.90 and Sciatica of right side M54.31 [place] [address] [place] [id number] [place] [address] 36271- 0266 Mar, Arthritis M19.90 ; Hypothyroidism (acquired) E03.9 and Lymph node enlargement R59.9 [place] [address] [place] [id number] [place] [address] 91338- 7440 Mar, Well woman exam with routine gynecological exam Z01.419 ; control counseling Z30.09 ; Acquired hypothyroidism E03.9 ; Sciatica of right side M54.31 ; Breast tenderness N64.4 and Generalized anxiety disorder F41.1 [place] [address] [place] [id number] [place] [address] 30139- 8036 06 Mar, 2018 [place] [id number] [place] [address] 19165- 2812 19 Feb, 2018 Bipolar 2 disorder F31.81 ; Generalized anxiety disorder F41.1 ; Attention-deficit hyperactivity disorder, predominantly inattentive type F90.0 and Current nonadherence to medical treatment Z91.19 [place] [address] [place] [id number] [place] [address] 91617- 4888 07 Feb, 2018 [place] [address] [place] [id number] [place] [address] 58376- 4899 Nov, Normal physical exam Z00.00 and Enlarged lymph node R59.9 [place] [address] [place] [id number] [place] [address] 70942- 2053 Nov, Enlarged lymph node R59.9 ; Abnormal liver function K76.89 and Hypothyroid E03.9 [place] [address] [place] [id number] [place] [address] 07280- 1038 Oct, Bipolar 2 disorder F31.81 [place] [address] [place] [id number] [place] [address] 12904- 2137 Oct, Sciatica of right side M54.31 and Essential hypertension I10 [place] [address] [place] [id number] [place] [address] 07081- 0186 Oct, [place] [address] [id number] [place] [address] 68675- 6917 Aug, Hypothyroid E03.9 [place] [address] [place] [id number] [place] [address] 30162- 6260 Aug, [place] [id number] [place] [address] 50032- 5001 Aug, Bipolar 2 disorder F31.81 [place] [address] [place] [id number] [place] [address] 61526- 1542 Aug, Abnormal liver function K76.89 [place] [address] [place] [id number] [place] [address] 98451- 0921 Jul, Bipolar 2 disorder F31.81 [facility] [address] [place] [id number] [place] [address] 18693 -9266 Jul, [place] [address] [place] [id number] [place] [address] 69135- 4129 Jul, Bipolar 2 disorder F31.81 ; Generalized anxiety disorder F41.1 ; Attention-deficit hyperactivity disorder, predominantly inattentive type F90.0 and Current nonadherence to medical treatment Z91.19 [facility] [address], [place] [address] 14 Jul, 2017 Essential hypertension I10 ; Other viral agents as the cause of diseases classified elsewhere B97.89 ; Acute upper respiratory infection, unspecified J06.9 and BMI 40.0-44.9, adult Z68.41 [facility] [address], [place] [address] 0828 13 Jul, 2017 [place] [address] [place] [id number] [place] [address] 33489- 9255 Jul, [facility] [address] [place] [id number] [place] [address] 22830- 9702 Jun, [place] [address] [place] [id number] [place] [address] 77394- 9119 Jun, [place] [address] [place] [id number] [place] [address] 32023- 6583 Jun, Dysuria R30.0 ; Urinary tract infection, site not specified N39.0 ; Hematuria, unspecified R31.9 ; Sciatica of right side M54.31 ; Migraine with aura and without status migrainosus, not intractable G43.109 ; Primary insomnia F51.01 ; Essential hypertension I10 and Acquired hypothyroidism E03.9 [place] [address], [place] [address]- 5333 Jun, Bipolar 2 disorder F31.81 [place] [address] [place] [id number] [place] [address] 02273- 9166 Jun, Bipolar 2 disorder F31.81 [place] [id number] [place] [address] 24021- 2678 May, Sore throat J02.9 ; Acute serous otitis media of left ear, recurrence not specified H65.02 and Hypertension I10 [facility] [address] [place] [address] 57261- 4236 05 May, 2017 Bipolar 2 disorder F31.81 [place] [address] [place] [id number] [place] [address] 17981- 6601 Apr, [facility] [address], [place] [address]- 9607 Apr, Bipolar 2 disorder F31.81 [facility] [address], [place] [address]- 7984 Mar, [facility] [id number] [place] [address] 15779- 4525 Feb, Bipolar 2 disorder F31.81 ; Attention deficit disorder F90.0 ; COLLEEN (generalized anxiety disorder) F41.1 and Panic disorder [episodic paroxysmal anxiety] without agoraphobia F41.0 [facility] [address], [place] [address] 4860 January, Bipolar 2 disorder F31.81 [facility] [address], [place] [address]- 4626 Dec, [facility] [address], [place] [address]- 7116 Dec, [facility] [address], [place] [address]- 7914 Dec, [facility] [address], [place] [address]- 3850 Dec, Generalized anxiety disorder F41.1 ; Bipolar 2 disorder F31.81 and Panic disorder [episodic paroxysmal anxiety] without agoraphobia F41.0 [facility] [address], [place] [address] 1947 Dec, [facility] [address], [place] [address]- 2237 Dec, [facility] [address] [place] [id number] [address]28 30 Nov, 2016 [facility] [address], [place] [address]- 9895 Nov, [facility] [address] [place] [id number] [address]- 1607 Nov, [facility] [address], [place] [address]- 5244 Oct, [facility] [address] [address] Oct, [facility] [address] [place] [address] [id number] [place] [address] 25685- 2760 Oct, [facility] [id number] [place] [address] 24827- 0198 Oct, [facility] [address] [place] [address] [id number] [place] [address] 70873- 3528 Oct, [facility] [address], [place] [address]- 5510 Sep, Bipolar 2 disorder F31.81 ; COLLEEN (generalized anxiety disorder) F41.1 ; Attention deficit disorder F90.0 and Panic disorder [episodic paroxysmal anxiety] without agoraphobia F41.0 [facility] [address], [place] [address]- 5575 Sep, [facility] [address], [place] [address]- 2412 Sep, [facility] [address], [place] [address]- 7909 Sep, [facility] [address], [place] [address]- 5542 Aug, [facility] [address], [place] [address]- 7629 Aug, [facility] [address] 8296 Aug, [facility] [address] 5965 Aug, [facility] [id number] [place] [address] 18205- 0556 Jul, [facility] [address] 08565- 1822 Jul, [facility] [address] 40089- 4139 Jul, [facility] [address] 19766- 9530 Jun, [facility] [address] 89129- 7501 Jun, Bipolar 2 disorder F31.81 ; Attention deficit disorder F90.0 ; COLLEEN (generalized anxiety disorder) F41.1 and Panic disorder [episodic paroxysmal anxiety] without agoraphobia F41.0 [facility] [address] [place] [id number] [place] [address] 88148- 2369 11 Jun, 2016 [facility] [address] 16142- 1315 Jun, [facility] [address] 19229- 3321 06 Jun, 2016 Right foot pain M79.671 and Nausea and vomiting in adult R11.2 [facility] [address] [place] [id number] [place] [address] 54342- 6888 May, [facility] [address] [place] [id number] [place] [address] 76833- 6286 May, Other sinusitis, unspecified chronicity J32.9 ; Environmental allergies Z91.09 ; Other chronic pain G89.29 and Sacrococcygeal disorders, not elsewhere classified M53.3 [facility] [address] 14013 -3117 16 May, 2016 Acute non-recurrent pansinusitis J01.40 and Gastroenteritis K52.9 [facility] [address] [place] [id number] [place] [address] 85938- 5416 May, [facility] [address] [place] [address]- 1027 May, [facility] [address], [place] [address]- 9655 Apr, Bronchitis J40 [facility] [address], [place] [address]- 3002 Apr, [facility] [address] [place] [id number] [place] [address] 64546- 7497 Apr, [facility] [address] [place] [id number] [place] [address] 63345- 0453 Apr, [facility] [address] [place] [address] [id number] [place] [address] 49350 -1522 Apr, Nausea and vomiting in adult R11.2 [facility] [address] [place] [address] 37760- 5283 Apr, Nausea and vomiting in adult R11.2 [facility] [address] [place] [address] 97599- 2809 Apr, Bipolar 2 disorder F31.81 ; Generalized anxiety disorder F41.1 ; Panic disorder [episodic paroxysmal anxiety] without agoraphobia F41.0 ; Attention deficit disorder F90.0 and COLLEEN (generalized anxiety disorder) F41.1 [facility] [address], [place] [address]- 4070 Apr, [facility] [address], [place] [address]- 2080 Mar, [facility] [address], [place] [address]- 2004 Mar, [facility] [address] [place] [id number] [place] [address] 73684- 1388 Mar, [facility] [address], [place] [address]- 8185 Mar, Bipolar 2 disorder F31.81 ; Attention deficit disorder F90.0 ; COLLEEN (generalized anxiety disorder) F41.1 and Panic disorder [episodic paroxysmal anxiety] without agoraphobia F41.0 [facility] [address], [place] [address]- 3321 Mar, [facility] [address] [place] [id number] [place] [address] 46369- 6309 Feb, Bipolar 2 disorder F31.81 ; Generalized anxiety disorder F41.1 and Attention deficit disorder F90.0 [facility] [address] [place] [id number] [place] [address] 39689- 4498 Feb, Generalized anxiety disorder F41.1 [facility] [address] [place] [id number] [place] [address] 58121- 3498 Feb, Generalized anxiety disorder F41.1 ; Attention deficit disorder F90.0 and Bipolar 2 disorder F31.81 [place] [address] [id number] [place] [address] 13084- 8339 Feb, Bipolar 2 disorder F31.81 ; Generalized anxiety disorder F41.1 ; Attention deficit disorder F90.0 and Insomnia, unspecified type G47.00 [facility] [address] [place] [address] 93801- 8167 Feb, Excessive sweating R61 and Breast lump in upper outer quadrant N63 [facility] [address], [place] [address] -[address]94 January, Low back pain M54.5 ; Other chronic pain G89.29 and Urinary tract infection, site unspecified N39.0 [facility] [address], [place] [address]- 4775 January, Bipolar II disorder F31.81 [facility] [address] [place] [id number] [place] [address] 86618- 7676 January, [facility] [address] [place] [address] 92099- 5561 January, Insomnia, unspecified type G47.00 and Grief F43.20 [facility] [address] [id number] [place] [address] 87460- 4873 January, [facility] [address] 07865- 5992 Dec, [facility] [address] 90343- 9521 Dec, [facility] [address] 37686- 2116 Dec, Bipolar 2 disorder F31.81 ; Generalized anxiety disorder F41.1 and Attention deficit disorder F90.0 [facility] [address] 97005- 3651 Dec, Sinusitis J32.9 [facility] [address] 76690- 7309 Dec, Sinusitis J32.9 and Hypothyroid E03.9 [facility] [address] 21061- 9630 Dec, [facility] [address] [id number] [place] [address] 45537 -1791 Dec, Cough R05 and Allergic rhinitis J30.9 [facility] [address] [place] [id number] [place] [address] 00622- 9117 Nov, Hypertension I10 ; Obesity E66.9 and Acne L70.9 [facility] [address] [place] [id number] [place] [address] 96693- 6453 Nov, [facility] [address] 97249- 6291 Oct, [facility] [address] 18598- 9239 Oct, [facility] [address] 29644- 0254 Oct, [facility] [address] 42901- 2609 Oct, [facility] [address] [place] [address] 64117- 9936 Sep, Lymphadenitis I88.9 ; Essential hypertension I10 and Acne, unspecified acne type L70.9 [facility] [address] [place] [address] 04228- 7336 Sep, [facility] [id number] [place] [address] 79276- 5030 Sep, [facility] [id number] [place] [address] 24302- 3852 Sep, [facility] [id number] [place] [address] 78533- 3687 Sep, Acquired hypothyroidism E03.9 [facility] [id number] [place] [address] 71413- 4894 Aug, Acquired hypothyroidism E03.9 [facility] [id number] [place] [address] 27224- 5424 Aug, Furuncle L02.92 [facility] [id number] [place] [address] 65639- 5335 Aug, [facility] [id number] [place] [address] 11723- 8960 Aug, Bipolar 2 disorder F31.81 ; Generalized anxiety disorder F41.1 ; Attention deficit disorder F90.0 and Obesity E66.9 [facility] [address] [place] [address] 11394- 8357 Aug, [facility] [id number] [place] [address] 14990- 8552 Aug, [facility] [address] [place] [address] 93676- 4399 Aug, Acquired hypothyroidism E03.9 [facility] [id number] [place] [address] 25448- 7868 Jul, Acquired hypothyroidism E03.9 ; Upper respiratory tract infection, unspecified type J06.9 and Nonintractable migraine, unspecified migraine type G43.009 [facility] [id number] [place] [address] 38513- 0065 Jun, Acute pharyngitis, unspecified J02.9 [facility] [id number] [place] [address] 59065- 7809 May, Bipolar II disorder 296.89 ; Attention deficit disorder of childhood without mention of hyperactivity 314.00 ; Generalized anxiety disorder 300.02 and Morbid obesity with BMI of 45.0-49.9, adult 278.01 [facility] [id number] [place] [address] 53208- 2125 May, Sinusitis 473.9 [facility] [id number] [place] [address] 47440- 8413 Apr, [facility] [address] 21534- 7044 Mar, [facility] [id number] [place] [address] 59448- 1148 Mar, Bipolar II disorder 296.89 ; Generalized anxiety disorder 300.02 ; Obesity, unspecified 278.00 and Attention deficit disorder 314.00 [facility] [id number] [place] [address] 22480- 2215 Feb, [facility] [id number] [place] [address] 17545- 1357 January, [facility] [id number] [place] [address] 32274- 5139 January, [facility] [id number] [place] [address] 42106- 1020 January, [facility] [id number] [place] [address] 19503- 4858 January, [facility] [address] 13867- 2546 14 Dec, 2014 [facility] [place] [facility] [address] [id number] [place] [address]- 0645 13 Dec, 2014 [facility] [place] [facility] [address] [id number] [place] [address]- 0984 30 Nov, 2014 [facility] [place] [facility] [address] [id number] [place] [address]- 8938 18 Nov, 2014 [facility] [place] [facility] [address] [id number] [place] [address]- 2265 18 Nov, 2014 [facility] [place] [facility] [address] [id number] [place] [address]- 2843 11 Nov, 2014 [facility] [place] [facility] [address] [id number] [place] [address]- 1158 11 Nov, 2014 [facility] [place] [facility] [address] [id number] [place] [address]- 4220 Nov, [facility] [place] [facility] [address] [id number] [place] [address]- 6470 11 Nov, 2014 [facility] [place] [facility] [address] [id number] [place] [address]- 7938 Nov, [facility] [place] [facility] [address] [id number] [place] [address]- 0886 Nov, [facility] [place] [facility] [address] [id number] [place] [address]- 6190 10 Nov, 2014 [facility] [place] [facility] [address] [id number] [place] [address]- 0845 10 Nov, 2014 [facility] [place] [facility] [address] [id number] [place] [address]- 0180 09 Nov, 2014 [facility] [place] [facility] [address] [id number] [place] [address]- 6203 Nov, [facility] [place] [facility] [address] [id number] [place] [address]- 8271 Nov, [facility] [place] [facility] [address] [id number] [place] [address]- 6236 Oct, 2014 [facility] [place] [facility] [address] [id number] [place] [address]- 1426 Oct, 2014 [facility] [place] [facility] [address] [id number] [place] [address] Oct, 2014 [facility] [place] [facility] [address] [id number] [place] [address] Oct, 2014 [facility] [place] [facility] [address] [id number] [place] [address] Oct, 2014 [facility] [place] [facility] [address] [id number] [place] [address] Oct, 2014 [facility] [place] [facility] [address] [facility] [id number] [place] [address] Oct, 2014 [facility] [place] [facility] [address] [facility] [id number] [place] [address] Oct, 2014 [facility] [place] [facility] [address] [facility] [id number] [place] [address] Oct, [facility] [place] [facility] [address] [facility] [id number] [place] [address] Oct, [facility] [place] [facility] [address] [facility] [id number], [place] [address] Oct, [facility] [place] [facility] [address] [facility] [id number], [place] [address] Oct, [facility] [place] [facility] [address] [facility] [id number], [place] [address] Sep, [facility] [place] [facility] [address] [id number], [place] [address] Sep, [facility] [place] [facility] [address] [facility] [id number], [place] [address] Sep, [facility] [place] [facility] [address] [facility] [id number], [place] [address] Sep, [facility] [place] [facility] [address] [id number] [place] [address] Sep, [facility] [place] [facility] [address] [id number] [place] [address] Sep, [facility] [place] [facility] [address] [facility] [facility] [id number] [place] [address] Sep, [facility] [place] [facility] [address] [id number] [place] [address] Sep, [facility] [place] [facility] [address] [id number] [place] [address] Aug, [facility] [place] [facility] [address] [id number] [place] [address] 0783 Aug, [facility] [place] [facility] [address] [facility] [id number] [place] [address] 6[address] Aug, [facility] [place] [facility] [address] [id number] [place] [address] 4024 Aug, [facility] [place] [facility] [address] [id number] [place] [address]- 2693 Aug, [facility] [place] [facility] [address] [facility] [id number] [place] [address] 7747 Aug, [facility] [place] [facility] [address] [id number] [place] [address] 1618 Aug, [facility] [place] [facility] [address] [id number] [place] [address] 9123 Aug, [facility] [place] [facility] [address] [id number] [place] [address] 3277 Aug, [facility] [place] [facility] [address] [facility] [id number] [place] [address]- 2560 Aug, [facility] [place] [facility] [address] [facility] [id number] [place] [address] 2113 Aug, [facility] [place] [facility] [address] [id number] [place] [address] 7728 Aug, [facility] [place] [facility] [address] [id number] [place] [address]- 0059 Aug, [facility] [place] [facility] [address] [id number] [place] [address]- 7244 Aug, [facility] [place] [facility] [address] [id number] [place] [address]- 5671 Jul, [facility] [place] [facility] [address] [id number] [place] [address]- 6893 Jul, [facility] [place] [facility] [address] [id number] [place] [address]- 9506 Jul, [facility] [place] [facility] [address] [id number] [place] [address] 1993 Jul, [facility] [place] [facility] [address] [id number] [place] [address]- 8641 Jul, [facility] [place] [facility] [address] [id number] [place] [address]- 4231 Jul, [facility] [place] [facility] [address] [id number] [place] [address]- 5553 Jul, [facility] [place] [facility] [address] [id number] [place] [address]- 7443 Jul, [facility] [place] [facility] [address] [id number] [place] [address]- 7997 Jul, [facility] [place] [facility] [address] [id number] [place] [address]- 8255 Jul, [facility] [place] [facility] [address] [id number] [place] [address]- 4567 Jul, [facility] [place] [facility] [address] [id number] [place] [address]- 6607 Jul, [facility] [place] [facility] [address] [id number] [place] [address]- 1022 16 Jun, 2014 [facility] [place] [facility] [address] [id number] [place] [address]- 7813 16 Jun, 2014 [facility] [place] [facility] [address] [id number] [place] [address]- 5953 15 Jun, 2014 [facility] [place] [facility] [address] [id number] [place] [address]- 9165 14 Jun, 2014 [facility] [place] [facility] [address] [id number] [place] [address]- 5227 14 Jun, 2014 [facility] [place] [facility] [address] [id number] [place] [address]- 2080 14 Jun, 2014 [facility] [place] [facility] [address] [id number] [place] [address]- 3448 14 Jun, 2014 [facility] [place] [facility] [address] [id number] [place] [address]- 7926 13 Jun, 2014 [facility] [place] [facility] [address] [id number] [place] [address]- 5120 10 Jun, 2014 [facility] [place] [facility] [address] [id number] [place] [address]- 6687 10 Jun, 2014 [facility] [place] [facility] [address] [id number] [place] [address]- 9983 09 Jun, 2014 [facility] [place] [facility] [address] [id number], [place] [address]- 65[address] 09 Jun, 2014 [facility] [place] [facility] [address] [id number], [place] [address]- 2767 06 Jun, 2014 [facility] [place] [facility] [address] [id number] [place] [address]- 3634 06 Jun, 2014 [facility] [place] [facility] [address] [id number], [place] [address] 28[address] 16 May, 2014 [facility] [place] [facility] [address] [id number], [place] [address] 15 May, 2014 [facility] [place] [facility] [address] [id number] [place] [address]- 1816 15 Sep, 2013 [facility] [place] [facility] [address] [id number] [place] [address] 2546 15 May, 2013 [facility] [place] [facility] [address] [id number] [place] [address] 2546 15 May, 2013 [facility] [place] [facility] [address] [id number] [place] [address] 2546 15 May, 2013 [facility] [place] [facility] [address] [id number] [place] [address] 2546 15 May, 2013 [facility] [place] [facility] [address] [id number] [place] [address]- 4965 12 May, 2013 [facility] [place] [facility] [address] [id number] [place] [address]- 6998 12 May, 2013 [facility] [place] [facility] [address] [id number] [place] [address]- 6544 10 May, 2013 [facility] [place] [facility] [address] [id number] [place] [address] 2545 10 May, 2013 [facility] [place] [facility] [address] [id number] [place] [address]- 0544 02 May, 2013 [facility] [place] [facility] [address] [id number] [place] [address] 2544 02 May, 2013 [facility] [place] [facility] [address] [id number] [place] [address] 2549 02 May, 2013 [facility] [place] [facility] [address] [id number] [place] [address]- 2541 02 May, 2013 [facility] [place] [facility] [address] [id number] [place] [address]- 2751 Apr, [facility] [place] [facility] [address] [id number] [place] [address]- 5141 Apr, [facility] [place] [facility] [address] [id number] [place] [address]- 0691 Apr, [facility] [place] [facility] [address] [id number] [place] [address]- 6233 Apr, [facility] [place] [facility] [address] [id number] [place] [address]- 8214 Apr, [facility] [place] [facility] [address] [id number] [place] [address]- 6075 Apr, [facility] [place] [facility] [address] [id number] [place] [address]- 7657 Apr, [facility] [place] [facility] [address] [id number] [place] [address]- 9736 Apr, [facility] [place] [facility] [address] [id number] [place] [address]- 3056 Apr, [facility] [place] [facility] [address] [id number] [place] [address]- 0775 Mar, [facility] [place] [facility] [address] [id number] [place] [address]- 6243 Mar, [facility] [place] [facility] [address] [id number] [place] [address]- 7553 Mar, [facility] [place] [facility] [address] [id number] [place] [address]- 6571 Mar, [facility] [place] [facility] [address] [id number] [place] [address]- 2663 Mar, [facility] [place] [facility] [address] [id number] [place] [address]- 5858 Mar, [facility] [place] [facility] [address] [id number] [place] [address]- 5970 Mar, [facility] [place] [facility] [address] [id number] [place] [address]- 7808 Mar, [facility] [place] [facility] [address] [id number] [place] [address]- 7749 Mar, [facility] [place] [facility] [address] [id number] [place] [address]- 5309 Mar, 2013 [facility] [place] [facility] [address] [id number] [place] [address]- 8976 Mar, 2013 [facility] [place] [facility] [address] [id number] [place] [address]- 8720 Mar, 2013 [facility] [place] [facility] [address] [id number] [place] [address]- 3551 Mar, 2013 [facility] [place] [facility] [address] [id number] [place] [address]- 8129 Mar, 2013 [facility] [place] [facility] [address] [id number] [place] [address]- 5317 Mar, 2013 [facility] [place] [facility] [address] [id number] [place] [address]- 3790 Mar, 2013 [facility] [place] [facility] [address] [id number] [place] [address]- 6063 Mar, [facility] [place] [facility] [address] [id number] [place] [address]- 5482 Mar, [facility] [place] [facility] [address] [id number] [place] [address]- 4743 Feb, [facility] [place] [facility] [address] [id number] [place] [address]- 7853 Feb, [facility] [place] [facility] [address] [id number] [place] [address]- 0722 Feb, [facility] [place] [facility] [address] [id number] [place] [address]- 0786 Feb, [facility] [place] [facility] [address] [id number] [place] [address]- 7812 Feb, [facility] [place] [facility] [address] [id number] [place] [address]- 1781 Feb, [facility] [place] [facility] [address] [id number] [place] [address]- 0110 Feb, [facility] [place] [facility] [address] [id number] [place] [address]- 7961 Feb, [facility] [address] [id number] [place] [address]- 9233 Feb, [facility] [address] [id number] [place] [address]- 7475 Feb, [facility] [address] [id number] [place] [address]- 8068 January, [facility] [address] [id number] [place] [address]- 7156 January, [facility] [address] [id number] [place] [address]- 7116 January, [facility] [address] [id number] [place] [address]- 8883 January, [facility] [address] [id number] [place] [address]- 8541 January, [facility] [address] [id number] [place] [address]- 4352 January, [facility] [address] [id number] [place] [address]- 4719 January, [facility] [address] [id number] [place] [address]- 1165 January, [facility] [address] [id number] [place] [address]- 3060 January, [facility] [address] [id number] [place] [address]- 3684 January, [facility] [place] [facility] [address] [id number] [place] [address]- 5397 January, [facility] [place] [facility] [address] [id number] [place] [address]- 5317 January, [facility] [address] [id number] [place] [address]- 0494 January, [facility] [place] [facility] [address] [id number] [place] [address]- 8803 January, [facility] [place] [facility] [address] [id number] [place] [address]- 6084 January, [facility] [place] [facility] [address] [id number] [place] [address]- 2426 Dec, [facility] [place] [facility] [address] [id number] [place] [address]- 5972 Dec, [facility] [place] [facility] [address] [id number] [place] [address]- 9259 Dec, [facility] [place] [facility] [address] [id number] [place] [address]- 3339 Dec, [facility] [place] [facility] [address] [id number] [place] [address]- 8561 Dec, [facility] [place] [facility] [address] [id number] [place] [address]- 2373 Dec, [facility] [place] [facility] [address] [id number] [place] [address]- 7403 Nov, [facility] [place] [facility] [address] [id number] [place] [address]- 6522 Nov, [facility] [place] [facility] [address] [id number] [place] [address]- 8071 Nov, [facility] [place] [facility] [address] [id number] [place] [address]- 0387 Nov, [facility] [place] [facility] [address] [id number] [place] [address]- 9845 Nov, [facility] [place] [facility] [address] [id number] [place] [address]- 5607 Oct, [facility] [place] [facility] [address] [id number] [place] [address]- 4708 Oct, [facility] [place] [facility] [address] [id number] [place] [address]- 7911 13 Oct, 2013 [facility] [place] [facility] [address] [id number] [place] [address]- 8146 13 Oct, 2013 [facility] [place] [facility] [address] [id number] [place] [address]- 3466 10 Oct, 2013 [facility] [place] [facility] [address] [id number] [place] [address]- 5326 06 Oct, 2013 [facility] [place] [facility] [address] [id number] [place] [address]- 9068 06 Oct, 2013 [facility] [place] [facility] [address] [id number] [place] [address]- 2135 Oct, [facility] [place] [facility] [address] [id number] [place] [address]- 2299 Oct, [facility] [place] [facility] [address] [id number] [place] [address]- 2957 Oct, [facility] [place] [facility] [address] [id number] [place] [address]- 8907 Oct, [facility] [place] [facility] [address] [id number] [place] [address]- 9969 Sep, [facility] [place] [facility] [address] [facility] [id number] [place] [address]- 9976 14 Sep, 2013 [facility] [place] [facility] [address] [id number] [place] [address]- 8136 14 Sep, 2013 [facility] [place] [facility] [address] [id number] [place] [address]- 4268 Sep, [facility] [place] [facility] [address] [id number] [place] [address]- 9376 Aug, [facility] [place] [facility] [address] [id number] [place] [address]- 3353 Aug, [facility] [place] [facility] [address] [id number] [place] [address]- 8035 Jul, [facility] [place] [facility] [address] [id number] [place] [address]- 6790 Jul, [facility] [place] [facility] [address] [id number] [place] [address]- 6649 Jul, [facility] [place] [facility] [address] [id number] [place] [address]- 0863 Jul, [facility] [place] [facility] [address] [id number] [place] [address]- 7250 Jul, [facility] [place] [facility] [address] [id number] [place] [address]- 0306 Jun, [facility] [place] [facility] [address] [id number] [place] [address]- 6829 Jun, [facility] [place] [facility] [address] [id number] [place] [address]- 4942 May, [facility] [place] [facility] [address] [id number] [place] [address]- 9810 Mar, [facility] [place] [facility] [address] [id number] [place] [address]- 9887 Mar, [facility] [place] [facility] [address] [id number] [place] [address]- 3979 Mar, [facility] [place] [facility] [address] [id number] [place] [address]- 6580 Feb, [facility] [place] [facility] [address] [id number], [place] [address]- 6353 January, [facility] [place] [facility] [address] [id number] [place] [address]- 5578 Dec, [facility] [place] [facility] [address] [id number] [place] [address]- 2050 Nov, [facility] [place] [facility] [address] [id number] [place] [address]- 8099 Nov, [facility] [place] [facility] [address] [facility] [id number], [place] [address] 2546 Nov, [facility] [id number], [place] [address]- 7606 Oct, [facility] [address] [id number], [place] [address]- 6986 Oct, [facility] [id number] [place] [address]- 7706 Oct, [facility] [id number] [place] [address] 2546 Oct, [place] [id number] [place] [address]- 3696 Sep, IMMUNIZATIONS Vaccine Route Administration Date Status KENALOG 40 MG/ML (PER 10 MG) IM Intramuscular Apr 29, 2018 Administered SOCIAL HISTORY Never Assessed REASON FOR VISIT Thyroid f/u, Having sinus problems, ears and nose have been stopped up. , Pain level has been up this past week, wanting to get injection, Has discoloration in right breast, Has small knots right hip, lower and upper right ribs and below each eye. CBrumbackRN PLAN OF CARE VITAL SIGNS Height 59 in 2018-04-29 Weight 152 lbs 2018-04-29 Temperature 98.7 degrees Fahrenheit 2018-04-29 Heart Rate 76 bpm 2018-04-29 Respiratory Rate 20 2018-04-29 BMI 30.70 kg/m2 2018-04-29 Blood pressure systolic 110 mmHg 2018-04-29 Blood pressure diastolic 80 mmHg 2018-04-29 MEDICATIONS Medication Instructions Dosage Frequency Start Date End Date Duration Status Citalopram Hydrobromide 20 mg Orally Once a day 1 tablet 24h Feb, 30 day(s) Active Amitriptyline HCl 50 MG Orally Once a day for migraine and sleep Take 1/2 tab for three nights then increase to 1 whole tablet 30 Active NuvaRing 0.12-0.015 MG/24HR Vaginal as directed 1 ring Mar, 30 day(s) Active HydrOXYzine Pamoate 50 MG Orally 2 times a day as needed for anxiety 1 capsule as needed Feb, 30 day(s) Active Lisinopril 20 mg 1 tablet 24h 30 Active Gabapentin 100 mg Orally 3 times a day 1 tablet 8h 27 Jan, 2016 Active Maxalt 10 MG Orally Once a day 1 tablet as needed 24h 30 days Active Levothyroxine Sodium 200 MCG Orally Once a day 1 tablet 24h 30 Active Levothyroxine Sodium 50 MCG Orally Once a day 1 tablet on an empty stomach in the morning 24h 25 Jun, 2017 30 day(s) Active Meloxicam 7.5 MG Orally 2 times a day 1 tablet 12h Mar, Sep, 30 day(s) Active Guanfacine HCl 2 MG TAKE ONE-HALF TABLET BY MOUTH ONCE DAILY AM; ONE-HALF TABLET AT 2:00PM AND ONE TABLET AT BEDTIME 30 Active Norvasc 5 mg Orally Once a day 1 tablet 24h May, 30 day(s) Active Tizanidine HCl 4 MG Orally 3 times a day 1 tablet as needed 8h Nov, Active RESULTS No Results PROCEDURES Procedure Date Ordered Result Body Site RHEUMATOID FACTOR, QUANT Apr 29, 2018 ANTINUCLEAR ANTIBODIES Apr 29, 2018 KENALOG 40 MG/ML (PER 10 MG) Apr 29, 2018 ANTISTREPTOLYSIN O, TITER Apr 29, 2018 RBC SED RATE, AUTOMATED Apr 29, 2018 C-REACTIVE PROTEIN Apr 29, 2018 LIPID PANEL Apr 29, 2018 THER/PROPH/DIAG INJ, SC/IM Apr 29, 2018 COMPLETE CBC W/AUTO DIFF WBC Apr 29, 2018 COMPREHEN METABOLIC PANEL Apr 29, 2018 INSTRUCTIONS MEDICATIONS ADMINISTERED No Known Medications MEDICAL [...]
--- OUTSIDE RECORDS SUMMARY | 2018-09-23 22:07 | XMS REPORT ---
Author Author ALLEN PATRICK Organization [facility] Address [address] [place] [address] Care Team Providers Care Eligibility Technician Name Role Phone ALLEN PATRICK Unavailable PROBLEMS Type Condition ICD9-CM Code KCY71-LO Code Onset Dates Condition Status SNOMED Code Problem Essential hypertension I10 Active 04405822 Problem Primary insomnia F51.01 Active 6816516 Problem Acquired hypothyroidism E03.9 Active 522335982 Problem Hypothyroidism (acquired) E03.9 Active 167094063 Problem Arthritis M19.90 Active 1819593 Problem Sciatica of right side M54.31 Active 61057719 Problem Migraine with aura and without status migrainosus, not intractable G43.109 Active 7780408 Problem Attention-deficit hyperactivity disorder, predominantly inattentive type F90.0 Active 77550963 Problem Current nonadherence to medical treatment Z91.19 Active 4544489 Problem LGSIL on Pap smear of cervix R87.612 Active 393733151 Problem Postoperative hypothyroidism E89.0 Active 35551977 Problem Generalized anxiety disorder F41.1 Active 20213166 Problem Bipolar 2 disorder F31.81 Active 36539601 Problem Abnormal liver function K76.89 Active 02290045 Problem Acne L70.9 Active 65576639 Problem Obesity E66.9 Active 022499867 Problem Panic disorder [episodic paroxysmal anxiety] without agoraphobia F41.0 Active 66868445 ALLERGIES No Information ENCOUNTERS Encounter Location Date Diagnosis [facility] [id number] [address] May, Arthritis M19.90 [facility] [address] [address] Apr, [facility] [id number] [address] 6[address] Apr, Generalized anxiety disorder F41.1 ; Arthritis M19.90 ; Hypothyroidism (acquired) E03.9 and Lymph node enlargement R59.9 [facility] [id number] [place] [address] 33652- 4972 13 Apr, 2018 Arthritis M19.90 and Sciatica of right side M54.31 [facility] [facility] [id number] [place] [address] 24140- 0816 Mar, Arthritis M19.90 ; Hypothyroidism (acquired) E03.9 and Lymph node enlargement R59.9 [place] [id number] [place] [address] 79314- 6969 10 Mar, 2018 Well woman exam with routine gynecological exam Z01.419 ; control counseling Z30.09 ; Acquired hypothyroidism E03.9 ; Sciatica of right side M54.31 ; Breast tenderness N64.4 and Generalized anxiety disorder F41.1 [place] [address] [address]- [address] Mar, [place] [address] 80243- 5977 Feb, Bipolar 2 disorder F31.81 ; Generalized anxiety disorder F41.1 ; Attention-deficit hyperactivity disorder, predominantly inattentive type F90.0 and Current nonadherence to medical treatment Z91.19 [place] [id number] [place] [address] 33844- 0369 Feb, [facility] [id number] [place] [address] 12918- 1897 Nov, Normal physical exam Z00.00 and Enlarged lymph node R59.9 [place] [id number] [place] [address] 65380- 4609 Nov, Enlarged lymph node R59.9 ; Abnormal liver function K76.89 and Hypothyroid E03.9 [place] [id number] [place] [address] 26780- 5961 Oct, Bipolar 2 disorder F31.81 [facility] [id number] [place] [address] 28995- 3942 Oct, Sciatica of right side M54.31 and Essential hypertension I10 [facility] [id number] [place] [address] 44591- 3791 Oct, [facility] [id number] [place] [address] 93126- 5523 Aug, Hypothyroid E03.9 [facility] [id number] [place] [address] 56511- 6587 Aug, [facility] [id number] [place] [address] 33423- 9344 Aug, Bipolar 2 disorder F31.81 [facility] [id number] [place] [address] 55066- 1755 Aug, Abnormal liver function K76.89 [facility] [place] [id number] [place] [address] 67946- 2546 Jul, Bipolar 2 disorder F31.81 [facility] [id number] [place] [address] 32186 -3388 Jul, [facility] [id number] [place] [address] 09182- 9907 Jul, Bipolar 2 disorder F31.81 ; Generalized anxiety disorder F41.1 ; Attention-deficit hyperactivity disorder, predominantly inattentive type F90.0 and Current nonadherence to medical treatment Z91.19 [facility] [id number] [place] [address] 64806 -5006 Jul, Essential hypertension I10 ; Other viral agents as the cause of diseases classified elsewhere B97.89 ; Acute upper respiratory infection, unspecified J06.9 and BMI 40.0-44.9, adult Z68.41 [place] [id number] [place] [address] 25213- 8496 Jul, [facility] [place] [id number] [place] [address] 61607- 0286 Jul, [facility] [id number] [place] [address] 28312- 1491 Jun, [place] [place] [id number] [place] [address] 64437- 3622 Jun, [facility] [place] [id number] [place] [address] 31049- 8993 Jun, Dysuria R30.0 ; Urinary tract infection, site not specified N39.0 ; Hematuria, unspecified R31.9 ; Sciatica of right side M54.31 ; Migraine with aura and without status migrainosus, not intractable G43.109 ; Primary insomnia F51.01 ; Essential hypertension I10 and Acquired hypothyroidism E03.9 [place] [id number] [place] [address] 75017- 2290 Jun, Bipolar 2 disorder F31.[address] [address]- 4956 Jun, Bipolar 2 disorder F31.81 [place] [id number] [place] [address] 25759- 1917 May, Sore throat J02.9 ; Acute serous otitis media of left ear, recurrence not specified H65.02 and Hypertension I10 [facility] [place] [id number] [place] [address] 67041- 3427 May, Bipolar 2 disorder F31.81 [facility] [id number] [place] [address] 99723- 7685 Apr, [facility] [id number] [place] [address] 84591- 9127 Apr, Bipolar 2 disorder F31.81 [place] [address] 55669- 2929 Mar, [facility] [id number] [place] [address] 10707- 7136 Feb, Bipolar 2 disorder F31.81 ; Attention deficit disorder F90.0 ; COLLEEN (generalized anxiety disorder) F41.1 and Panic disorder [episodic paroxysmal anxiety] without agoraphobia F41.0 [facility] [address] [address] 9[address] January, Bipolar 2 disorder F31.81 [facility] [address] [address]- 8521 24 Dec, 2016 [facility] [id number] [place] [address] 69794- 2813 Dec, [facility] [address] [address] 3138 Dec, [facility] [id number] [place] [address] 30748- 6627 Dec, Generalized anxiety disorder F41.1 ; Bipolar 2 disorder F31.81 and Panic disorder [episodic paroxysmal anxiety] without agoraphobia F41.0 [facility] [id number] [address] 0404 Dec, [facility] [address] [address]- 3419 Dec, [facility] [address] [address]- 2235 Nov, [facility] [address] [address]- 0884 Nov, [facility] [address] [address]- 7992 Nov, [facility] [address] [address]- 7938 Oct, [facility] [address] [address]- 3326 Oct, [facility] [address] [address]- 8321 Oct, [facility] [address] [address]- 3246 Oct, [facility] [address] [address]- 0998 Oct, [facility] [id number] [place] [address] 088255- 4568 Sep, Bipolar 2 disorder F31.81 ; COLLEEN (generalized anxiety disorder) F41.1 ; Attention deficit disorder F90.0 and Panic disorder [episodic paroxysmal anxiety] without agoraphobia F41.0 [facility] [address] [address]- 0256 Sep, [facility] [id number] [place] [address] 69646- 0811 Sep, [facility] [id number] [place] [address] 27853- 2505 Sep, [facility] [id number] [place] [address] 78786- 4389 Aug, [facility] [address] [address]- 9185 Aug, [facility] [id number] [place] [address] 79412- 1650 Aug, [facility] [address] [address]- 0491 Aug, [facility] [address] [address]- 3271 Jul, [facility] [address] [address]- 3830 Jul, [facility] [address] [address]872 Jul, [facility] [address] 7686 Jun, [facility] [address] 9[address] 13 Oct, 2016 Bipolar 2 disorder F31.81 ; Attention deficit disorder F90.0 ; COLLEEN (generalized anxiety disorder) F41.1 and Panic disorder [episodic paroxysmal anxiety] without agoraphobia F41.0 [facility] [id number] [place] [address] 13577- 2704 Jun, [facility] [address] 77157- 0114 Jun, [facility] [address] 36970- 8985 Jun, Right foot pain M79.671 and Nausea and vomiting in adult R11.2 [facility] [address] 25535- 6806 May, [facility] [id number] [place] [address] 15720- 0481 May, Other sinusitis, unspecified chronicity J32.9 ; Environmental allergies Z91.09 ; Other chronic pain G89.29 and Sacrococcygeal disorders, not elsewhere classified M53.3 [facility] [id number] [place] [address] 83282 -1369 May, Acute non-recurrent pansinusitis J01.40 and Gastroenteritis K52.9 [facility] [id number] [place] [address] 37809- 9393 May, [facility] [id number] [place] [address] 20081- 7182 May, [facility] [address] 81610- 6186 Apr, Bronchitis J40 [facility] [address] 72636- 2532 Apr, [facility] [id number] [place] [address] 53369- 6689 Apr, [facility] [address] 32983- 5464 Apr, [facility] [address] [address] -3229 Apr, Nausea and vomiting in adult R11.2 [facility] [id number] [place] [address] 59716- 8808 Apr, Nausea and vomiting in adult R11.2 [facility] [address] [place] [address] 61770- 3108 Apr, Bipolar 2 disorder F31.81 ; Generalized anxiety disorder F41.1 ; Panic disorder [episodic paroxysmal anxiety] without agoraphobia F41.0 ; Attention deficit disorder F90.0 and COLLEEN (generalized anxiety disorder) F41.1 [facility] [id number] [place] [address] 70974- 7567 Apr, [facility] [id number] [place] [address] 23494- 4917 Mar, [facility] [id number] [place] [address] 29746- 5298 Mar, [facility] [id number] [place] [address] 73006- 7379 Mar, [facility] [id number] [place] [address] 12741- 8119 Mar, Bipolar 2 disorder F31.81 ; Attention deficit disorder F90.0 ; COLLEEN (generalized anxiety disorder) F41.1 and Panic disorder [episodic paroxysmal anxiety] without agoraphobia F41.0 [facility] [address] [address]- 1669 Mar, [facility] [id number] [place] [address] 81039- 2136 Feb, Bipolar 2 disorder F31.81 ; Generalized anxiety disorder F41.1 and Attention deficit disorder F90.0 [facility] [address] [address]- 3226 Feb, Generalized anxiety disorder F41.1 [facility] [id number] [place] [address] 61709- 5518 Feb, Generalized anxiety disorder F41.1 ; Attention deficit disorder F90.0 and Bipolar 2 disorder F31.81 [facility] [id number] [place] [address] 96913- 2011 Feb, Bipolar 2 disorder F31.81 ; Generalized anxiety disorder F41.1 ; Attention deficit disorder F90.0 and Insomnia, unspecified type G47.00 [facility] [id number] [place] [address] 19095- 9830 Feb, Excessive sweating R61 and Breast lump in upper outer quadrant N63 [facility] [id number] [place] [address] 54989 -8604 January, Low back pain M54.5 ; Other chronic pain G89.29 and Urinary tract infection, site unspecified N39.0 [facility] [id number] [place] [address] 71214- 8121 January, Bipolar II disorder F31.81 [facility] [id number] [place] [address] 19276- 5257 January, [facility] [id number] [place] [address] 66428- 8456 January, Insomnia, unspecified type G47.00 and Grief F43.20 [facility] [id number] [place] [address] 12645- 0925 January, [facility] [id number] [place] [address] 14996- 3135 Dec, [facility] [id number] [place] [address] 90483- 6962 Dec, [facility] [id number] [place] [address] 18337- 7381 Dec, Bipolar 2 disorder F31.81 ; Generalized anxiety disorder F41.1 and Attention deficit disorder F90.0 [facility] [id number] [place] [address] 91568- 9761 Dec, Sinusitis J32.9 [facility] [address] 17004- 0742 14 Dec, 2015 Sinusitis J32.9 and Hypothyroid E03.9 [facility] [address] 33429- 5906 Dec, [facility] [address] 49812 -6093 Dec, Cough R05 and Allergic rhinitis J30.9 [facility] [address] 55728- 9127 Nov, Hypertension I10 ; Obesity E66.9 and Acne L70.9 [facility] [address] 27999- 6387 Nov, [facility] [address] 56566- 8480 Oct, [facility] [address] 15660- 0618 Oct, [facility] [id number] [place] [address] 25783- 2345 Oct, [facility] [id number] [place] [address] 89159- 2606 Oct, [facility] [address] 23323- 7247 Sep, Lymphadenitis I88.9 ; Essential hypertension I10 and Acne, unspecified acne type L70.9 [facility] [address] 65107- 3985 Sep, [facility] [id number] [place] [address] 50016- 0549 Sep, [facility] [address] 18980817- 2559 Sep, [facility] [address] [address]- 0295 Sep, Acquired hypothyroidism E03.9 [facility] [id number] [place] [address] 47268694- 8641 Aug, Acquired hypothyroidism E03.9 [facility] [id number] [place] [address] 83556- 4745 Aug, Furuncle L02.92 [facility] [id number] [place] [address] 452997- 4311 Aug, [facility] [id number] [place] [address] 13177- 2183 Aug, Bipolar 2 disorder F31.81 ; Generalized anxiety disorder F41.1 ; Attention deficit disorder F90.0 and Obesity E66.9 [facility] [id number] [place] [address] 71144- 6838 Aug, [facility] [id number] [place] [address] 25746- 3212 Aug, [facility] [id number] [place] [address] 37568- 2311 Aug, Acquired hypothyroidism E03.9 [facility] [address] [place] [address] 06438- 4850 Jul, Acquired hypothyroidism E03.9 ; Upper respiratory tract infection, unspecified type J06.9 and Nonintractable migraine, unspecified migraine type G43.009 [facility] [id number] [address]- 4586 14 Jun, 2015 Acute pharyngitis, unspecified J02.9 [facility] [address]- 5020 24 May, 2015 Bipolar II disorder 296.89 ; Attention deficit disorder of childhood without mention of hyperactivity 314.00 ; Generalized anxiety disorder 300.02 and Morbid obesity with BMI of 45.0-49.9, adult 278.01 [facility] [address] 2111 May, Sinusitis 473.9 [facility] [id number] [place] [address] 28321- 4546 Apr, [facility] [id number]- 6304 Mar, [facility] [id number] [place] [address] 52433- 1029 Mar, Bipolar II disorder 296.89 ; Generalized anxiety disorder 300.02 ; Obesity, unspecified 278.00 and Attention deficit disorder 314.00 [facility] [id number] [place] [address] 721323- 3117 Feb, [facility] [id number] [place] [address] 30885- 6965 January, [facility] [id number] [address]- 0551 January, [facility] [id number] 2627 January, [facility] [id number] [address]- 1343 January, [facility] [address] [address]- 2062 Dec, [facility] [id number] [address]- 1228 Dec, [facility] [address] [address]- 1439 Nov, [facility] [id number] [address]- 5579 Nov, [facility] [address] 4702 Nov, [facility] [address] [address]- 9294 11 Nov, 2014 [facility] [place] [facility] [address] [id number] [place] [address]- 7919 Nov, [facility] [place] [facility] [address] [id number] [place] [address]- 2467 Nov, [facility] [place] [facility] [address] [id number] [place] [address]- 4141 Nov, [facility] [place] [facility] [address] [id number] [place] [address]- 2338 Nov, [facility] [place] [facility] [address] [id number] [place] [address] Nov, [facility] [place] [facility] [address] [id number] [place] [address] Nov, [facility] [place] [facility] [address] [id number] [place] [address] Nov, [facility] [place] [facility] [address] [id number] [place] [address] Nov, [facility] [place] [facility] [address] [id number] [place] [address] Nov, [facility] [place] [facility] [address] [id number] [place] [address] Nov, [facility] [place] [facility] [address] [id number] [place] [address] Oct, 2014 [facility] [place] [facility] [address] [id number] [place] [address] Oct, [facility] [place] [facility] [address] [id number] [place] [address] Oct, [facility] [place] [facility] [address] [id number] [place] [address] Oct, [facility] [place] [facility] [address] [id number] [place] [address] Oct, 2014 [facility] [place] [facility] [address] [id number] [place] [address] Oct, [facility] [place] [facility] [address] [id number] [place] [address] Oct, 2014 [facility] [place] [facility] [address] [facility] [id number] [place] [address] Oct, 2014 [facility] [place] [facility] [address] [facility] [id number] [place] [address] Oct, 2014 [facility] [place] [facility] [address] [id number] [place] [address] Oct, [facility] [place] [facility] [address] [facility] [id number] [place] [address] Oct, [facility] [place] [facility] [address] [id number] [address] Oct, [facility] [place] [facility] [address] [facility] [id number] [place] [address] Sep, [facility] [place] [facility] [address] [facility] [id number] [place] [address] Sep, [facility] [place] [facility] [address] [facility] [id number] [place] [address] Sep, [facility] [place] [facility] [address] [facility] [id number] [place] [address] Sep, [facility] [place] [facility] [address] [facility] [id number] [place] [address] Sep, [facility] [place] [facility] [address] [facility] [id number] [place] [address] Sep, [facility] [place] [facility] [address] [facility] [id number] [place] [address] Sep, [facility] [place] [facility] [address] [facility] [id number] [place] [address] Sep, [facility] [place] [facility] [address] [id number] [place] [address] Aug, [facility] [place] [facility] [address] [id number] [place] [address] Aug, [facility] [place] [facility] [address] [id number] [place] [address] Aug, [facility] [place] [facility] [address] [id number] [place] [address]46 Aug, [facility] [place] [facility] [address] [id number] [place] [address] Aug, [facility] [place] [facility] [address] [id number] [place] [address] 9764 Aug, [facility] [place] [facility] [address] [id number] [place] [address] 4590 Aug, [facility] [place] [facility] [address] [id number] [place] [address]047 Aug, [facility] [place] [facility] [address] [id number] [place] [address] 8619 Aug, [facility] [place] [facility] [address] [id number] [place] [address] 3349 Aug, [facility] [place] [facility] [address] [id number] [place] [address] 7853 Aug, [facility] [place] [facility] [address] [id number] [place] [address] 5046 Aug, [facility] [place] [facility] [address] [id number] [place] [address] 6316 Aug, [facility] [place] [facility] [address] [id number] [place] [address] 0296 Aug, [facility] [place] [facility] [address] [id number] [place] [address] 2886 Jul, [facility] [place] [facility] [address] [id number] [place] [address] 66[address] Jul, [facility] [place] [facility] [address] [id number] [place] [address] 1126 Jul, [facility] [place] [facility] [address] [id number] [place] [address]- 1788 Jul, [facility] [place] [facility] [address] [id number] [place] [address] 2601 Jul, [facility] [place] [facility] [address] [id number] [place] [address] 6790 Jul, [facility] [place] [facility] [address] [id number] [place] [address]- 5983 Jul, [facility] [place] [facility] [address] [id number] [place] [address]- 9088 Jul, [facility] [place] [facility] [address] [id number] [place] [address]- 2190 Jul, [facility] [place] [facility] [address] [id number] [place] [address]- 9978 Jul, [facility] [place] [facility] [address] [id number] [place] [address]- 3278 Jul, [facility] [place] [facility] [address] [id number] [place] [address] 7221 Jul, [facility] [place] [facility] [address] [id number] [address]- 5345 16 Jun, 2014 [facility] [place] [facility] [address] [id number] [place] [address]- 0567 16 Jun, 2014 [facility] [place] [facility] [address] [id number] [place] [address]- 1569 15 Jun, 2014 [facility] [place] [facility] [address] [id number] [address]- 9986 14 Jun, 2014 [facility] [place] [facility] [address] [id number] [address]- 8434 14 Jun, 2014 [facility] [place] [facility] [address] [id number] [place] [address]- 0640 14 Jun, 2014 [facility] [place] [facility] [address] [id number] [place] [address]- 2908 14 Jun, 2014 [facility] [place] [facility] [address] [id number] [place] [address]- 5476 13 Jun, 2014 [facility] [place] [facility] [address] [id number] [place] [address]- 3605 10 Jun, 2014 [facility] [place] [facility] [address] [id number] [place] [address]- 7160 10 Jun, 2014 [facility] [place] [facility] [address] [id number] [place] [address]- 5883 09 Jun, 2014 [facility] [place] [facility] [address] [id number] [place] [address]- 6731 09 Jun, 2014 [facility] [place] [facility] [address] [id number] [place] [address]- 0235 06 Jun, 2014 [facility] [place] [facility] [address] [id number] [place] [address]- 5633 06 Jun, 2014 [facility] [place] [facility] [address] [id number] [place] [address]- 4123 16 May, 2013 [facility] [place] [facility] [address] [id number] [place] [address]- 4601 15 Sep, 2013 [facility] [place] [facility] [address] [id number] [place] [address]- 2549 15 May, 2013 [facility] [place] [facility] [address] [id number] [address]- 2549 15 Sep, 2013 [facility] [place] [facility] [address] [id number] [place] [address] 2546 15 May, 2013 [facility] [place] [facility] [address] [id number] [place] [address]- 2546 15 May, 2013 [facility] [place] [facility] [address] [id number] [place] [address]- 2544 15 May, 2013 [facility] [place] [facility] [address] [id number] [place] [address]- 2788 12 May, 2013 [facility] [place] [facility] [address] [id number] [place] [address]- 1300 12 May, 2013 [facility] [place] [facility] [address] [id number] [place] [address]- 6114 10 May, 2013 [facility] [place] [facility] [address] [id number] [place] [address]- 1375 10 May, 2013 [facility] [place] [facility] [address] [id number] [place] [address]- 7052 02 May, 2013 [facility] [place] [facility] [address] [id number] [place] [address]- 6708 May, 2013 [facility] [place] [facility] [address] [id number] [place] [address]- 7895 May, 2013 [facility] [place] [facility] [address] [id number] [place] [address]- 8383 May, 2013 [facility] [place] [facility] [address] [id number] [place] [address]- 0283 Apr, [facility] [place] [facility] [address] [id number] [place] [address]- 8589 Apr, [facility] [place] [facility] [address] [id number] [place] [address]- 9194 Apr, [facility] [place] [facility] [address] [id number] [place] [address]- 8678 Apr, [facility] [place] [facility] [address] [id number] [place] [address]- 2751 Apr, [facility] [place] [facility] [address] [id number] [place] [address]- 7504 Apr, [facility] [place] [facility] [address] [id number] [place] [address]- 6641 Apr, [facility] [place] [facility] [address] [id number] [place] [address]- 2546 Apr, [facility] [place] [facility] [address] [id number] [place] [address]- 2758 Apr, [facility] [place] [facility] [address] [id number] [place] [address]- 9117 Mar, [facility] [place] [facility] [address] [id number] [place] [address]- 1530 Mar, [facility] [place] [facility] [address] [id number] [place] [address]- 1433 Mar, [facility] [place] [facility] [address] [id number] [place] [address]- 1182 Mar, [facility] [place] [facility] [address] [id number] [place] [address]- 5435 Mar, [facility] [place] [facility] [address] [id number] [place] [address]- 4108 Mar, [facility] [place] [facility] [address] [id number] [place] [address]- 0754 Mar, [facility] [place] [facility] [address] [id number] [place] [address]- 7316 Mar, [facility] [place] [facility] [address] [id number] [place] [address]- 6416 Mar, [facility] [place] [facility] [address] [id number] [place] [address]- 9376 Mar, [facility] [place] [facility] [address] [id number] [place] [address]- 4157 Mar, [facility] [place] [facility] [address] [id number] [place] [address]- 9655 Mar, [facility] [place] [facility] [address] [id number] [place] [address]- 8600 Mar, [facility] [place] [facility] [address] [id number] [place] [address]- 9253 Mar, [facility] [place] [facility] [address] [id number] [place] [address]- 7992 Mar, [facility] [place] [facility] [address] [id number] [place] [address]- 6805 Mar, [facility] [place] [facility] [address] [id number] [place] [address]- 9409 Mar, [facility] [place] [facility] [address] [id number] [place] [address]- 5642 Mar, [facility] [place] [facility] [address] [id number] [place] [address]- 3292 Feb, [facility] [place] [facility] [address] [id number] [place] [address]- 3911 Feb, [facility] [place] [facility] [address] [id number] [place] [address]- 1894 Feb, [facility] [place] [facility] [address] [id number] [place] [address]- 1023 Feb, [facility] [place] [facility] [address] [id number] [place] [address]- 0255 Feb, [facility] [place] [facility] [address] [id number] [place] [address]- 2903 Feb, [facility] [place] [facility] [address] [id number] [place] [address]- 7686 Feb, [facility] [place] [facility] [address] [id number] [place] [address]- 9135 Feb, [facility] [place] [facility] [address] [id number] [place] [address]- 2622 Feb, [facility] [place] [facility] [address] [id number] [place] [address]- 2073 Feb, [facility] [place] [facility] [address] [id number] [place] [address]- 4240 January, [facility] [place] [facility] [address] [id number] [place] [address]- 9437 January, [facility] [address] [id number] [place] [address]- 5664 January, [facility] [place] [facility] [address] [id number] [place] [address]- 4851 January, [facility] [place] [facility] [address] [id number] [place] [address]- 7853 January, [facility] [place] [facility] [address] [id number] [place] [address]- 6014 January, [facility] [place] [facility] [address] [id number] [place] [address]- 6027 January, [facility] [place] [facility] [address] [id number] [place] [address]- 5827 January, [facility] [place] [facility] [address] [id number] [place] [address]- 3907 January, [facility] [place] [facility] [address] [id number] [place] [address]- 8027 January, [facility] [place] [facility] [address] [id number] [place] [address]- 6308 January, [facility] [place] [facility] [address] [id number] [place] [address]- 3050 January, [facility] [place] [facility] [address] [id number] [place] [address]- 7848 January, [facility] [place] [facility] [address] [id number] [place] [address]- 3393 January, [facility] [place] [facility] [address] [id number] [place] [address]- 8733 January, [facility] [place] [facility] [address] [id number] [place] [address]- 6859 Dec, [facility] [place] [facility] [address] [id number] [place] [address]- 4633 Dec, [facility] [place] [facility] [address] [id number] [place] [address]- 9196 Dec, [facility] [place] [facility] [address] [id number] [place] [address]- 1555 Dec, [facility] [place] [facility] [address] [id number] [place] [address]- 5112 Dec, [facility] [place] [facility] [address] [facility] [id number] [place] [address]- 6064 Dec, [facility] [place] [facility] [address] [facility] [id number] [place] [address]- 3054 Nov, [facility] [place] [facility] [address] [facility] [id number] [place] [address]- 7597 Nov, [facility] [place] [facility] [address] [facility] [id number] [place] [address]- 5140 Nov, [facility] [place] [facility] [address] [facility] [id number] [place] [address]- 9304 Nov, [facility] [place] [facility] [address] [facility] [id number] [place] [address]- 4215 Nov, [facility] [place] [facility] [address] [id number] [place] [address]- 2233 Oct, [facility] [place] [facility] [address] [facility] [id number] [place] [address]- 3110 Oct, [facility] [place] [facility] [address] [id number] [address]- 1029 Oct, [facility] [place] [facility] [address] [facility] [id number] [place] [address]- 8485 Oct, [facility] [place] [facility] [address] [facility] [id number] [place] [address]- 4426 Oct, [facility] [place] [facility] [address] [facility] [id number] [place] [address]- 5475 Oct, [facility] [place] [facility] [address] [facility] [id number] [place] [address]- 7868 Oct, [facility] [place] [facility] [address] [id number] [place] [address]- 9795 Oct, [facility] [place] [facility] [address] [id number] [place] [address]- 6841 Oct, [facility] [place] [facility] [address] [id number] [place] [address]- 9857 Oct, [facility] [place] [facility] [address] [id number] [place] [address]- 8957 Oct, [facility] [place] [facility] [address] [id number] [place] [address]- 0209 Sep, [facility] [place] [facility] [address] [id number] [place] [address]- 4062 Sep, [facility] [place] [facility] [address] [id number] [place] [address]- 5683 Sep, [facility] [place] [facility] [address] [id number] [place] [address]- 2396 Sep, [facility] [place] [facility] [address] [id number] [place] [address]- 5897 Aug, [facility] [place] [facility] [address] [id number] [place] [address]- 7893 Aug, [facility] [place] [facility] [address] [id number] [place] [address]- 0336 Jul, [facility] [place] [facility] [address] [id number] [place] [address]- 0879 Jul, [facility] [place] [facility] [address] [id number] [place] [address]- 1200 Jul, [facility] [place] [facility] [address] [id number] [place] [address]- 3280 Jul, [facility] [place] [facility] [address] [id number] [place] [address]- 7909 Jul, [facility] [place] [facility] [address] [id number] [place] [address]- 3417 Jun, [facility] [address] [id number] [place] [address]- 6002 Jun, [facility] [place] [facility] [address] [id number] [place] [address]- 9163 May, [facility] [address] [id number] [place] [address]- 3222 Mar, [facility] [place] [facility] [address] [id number] [place] [address]- 7784 Mar, [facility] [address] [id number] [place] [address]- 7538 Mar, [facility] [place] [facility] [address] [id number] [place] [address]- 3838 Feb, [facility] [address] [id number] [place] [address]- 3137 January, [facility] [address] [id number] [place] [address]- 0583 Dec, [facility] [place] [facility] [address] [id number] [place] [address]- 0508 Nov, [facility] [place] [facility] [address] [id number] [place] [address]- 2194 Nov, [facility] [place] [facility] [address] [id number] [place] [address]- 5020 Nov, [facility] [place] [facility] [address] [id number] [place] [address]- 8964 Oct, [facility] [place] [facility] [address] [id number] [place] [address]- 3717 Oct, [facility] [place] [facility] [address] [id number] [place] [address]- 2546 Oct, [facility] [place] [facility] [address] [id number] [place] [address]- 8300 Oct, [facility] [address] [facility] [id number] [place] [address]- 5653 Sep, IMMUNIZATIONS No Known Immunizations SOCIAL HISTORY Never Assessed REASON FOR VISIT Requests return call PLAN OF CARE VITAL SIGNS MEDICATIONS Medication Instructions Dosage Frequency Start Date End Date Duration Status Tizanidine HCl 4 MG Orally 3 times a day 1 tablet as needed 8h Nov, Active Gabapentin 100 mg Orally 3 times a day 1 tablet 8h January, Active RESULTS No Results PROCEDURES No Known [...]
--- OUTSIDE RECORDS SUMMARY | 2018-09-23 22:08 | XMS REPORT ---
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 Name Role Phone ALLEN PATRICK Unavailable PROBLEMS Type Condition ICD9-CM Code KFB98-DN Code Onset Dates Condition Status SNOMED Code Problem Essential hypertension I10 Active 87301788 Problem Primary insomnia F51.01 Active 8134270 Problem Acquired hypothyroidism E03.9 Active 031409884 Problem Hypothyroidism (acquired) E03.9 Active 293730936 Problem Arthritis M19.90 Active 5436519 Problem Sciatica of right side M54.31 Active 95083365 Problem Migraine with aura and without status migrainosus, not intractable G43.109 Active 0424837 Problem Attention-deficit hyperactivity disorder, predominantly inattentive type F90.0 Active 67773908 Problem Current nonadherence to medical treatment Z91.19 Active 5334590 Problem LGSIL on Pap smear of cervix R87.612 Active 246065437 Problem Postoperative hypothyroidism E89.0 Active 57147150 Problem Generalized anxiety disorder F41.1 Active 95132670 Problem Bipolar 2 disorder F31.81 Active 42691484 Problem Abnormal liver function K76.89 Active 62073389 Problem Acne L70.9 Active 45166155 Problem Obesity E66.9 Active 153761638 Problem Panic disorder [episodic paroxysmal anxiety] without agoraphobia F41.0 Active 07245072 ALLERGIES Substance Reaction Event Type Date Status Sulfacetamide Sodium Unknown Drug Allergy Mar, Active Penicillin V Potassium hives Drug Allergy Mar, Active Benzodiazepines Failed UDS Non Drug Allergy Mar, Active Hydrocodone Failed UDS Non Drug Allergy Mar, Active ENCOUNTERS Encounter Location Date Diagnosis [facility] [address] [facility] [id number] [address] May, [facility] [address] [facility] [id number] [address] Apr, [place] [address] [address] 8131 Apr, Generalized anxiety disorder F41.1 ; Arthritis M19.90 ; Hypothyroidism (acquired) E03.9 and Lymph node enlargement R59.9 [place] [address] [place] [id number] [place] [address] 77159- 3480 Apr, Arthritis M19.90 and Sciatica of right side M54.31 [place] [address] [place] [id number] [place] [address] 08522- 8601 Mar, Arthritis M19.90 ; Hypothyroidism (acquired) E03.9 and Lymph node enlargement R59.9 [place] [address] [place] [id number] [place] [address] 17410- 9055 Mar, Well woman exam with routine gynecological exam Z01.419 ; control counseling Z30.09 ; Acquired hypothyroidism E03.9 ; Sciatica of right side M54.31 ; Breast tenderness N64.4 and Generalized anxiety disorder F41.1 [place] [address] [place] [id number] [place] [address] 35871- 4117 Mar, [place] [address] [id number] [place] [address] 44809- 1471 Feb, Bipolar 2 disorder F31.81 ; Generalized anxiety disorder F41.1 ; Attention-deficit hyperactivity disorder, predominantly inattentive type F90.0 and Current nonadherence to medical treatment Z91.19 [place] [address] [id number] [place] [address] 41585- 1117 Feb, [place] [address] [place] [id number] [place] [address] 60028- 6251 Nov, Normal physical exam Z00.00 and Enlarged lymph node R59.9 [place] [address] [place] [id number] [place] [address] 49994- 8161 Nov, Enlarged lymph node R59.9 ; Abnormal liver function K76.89 and Hypothyroid E03.9 [place] [address] [place] [id number] [place] [address] 63729- 5251 Oct, Bipolar 2 disorder F31.81 [facility] [address] [place] [address] 68933- 0504 Oct, Sciatica of right side M54.31 and Essential hypertension I10 [facility] [address] [id number] [place] [address] 97668- 7841 Oct, [facility] [address] [id number] [place] [address] 52754- 0614 Aug, Hypothyroid E03.9 [place] [address] [place] [id number] [place] [address] 46426- 3288 Aug, [place] [address] [place] [id number] [place] [address] 59776- 0665 Aug, Bipolar 2 disorder F31.81 [place] [address] [place] [place] [id number] [place] [address] 22233- 7960 05 Aug, 2017 Abnormal liver function K76.89 [place] [address] [place] [id number] [place] [address] 59331- 4573 Jul, Bipolar 2 disorder F31.81 [facility] [id number] [place] [address] 48390 -5971 Jul, [place] [address] [place] [id number] [place] [address] 38915- 8596 14 Jul, 2017 Bipolar 2 disorder F31.81 ; Generalized anxiety disorder F41.1 ; Attention-deficit hyperactivity disorder, predominantly inattentive type F90.0 and Current nonadherence to medical treatment Z91.19 [facility] [address] [place] [address] 76447 -7857 14 Jul, 2017 Essential hypertension I10 ; Other viral agents as the cause of diseases classified elsewhere B97.89 ; Acute upper respiratory infection, unspecified J06.9 and BMI 40.0-44.9, adult Z68.41 [facility] [address] [place] [id number] [place] [address] 65368- 4340 Jul, [facility] [id number] [place] [address] 39134- 4795 Jul, [facility] [address] [place] [id number] [place] [address] 78931- 0094 Jun, [facility] [address] [id number] [place] [address] 08228- 6208 Jun, [facility] [address] [address] [id number] [place] [address] 73016- 1725 Jun, Dysuria R30.0 ; Urinary tract infection, site not specified N39.0 ; Hematuria, unspecified R31.9 ; Sciatica of right side M54.31 ; Migraine with aura and without status migrainosus, not intractable G43.109 ; Primary insomnia F51.01 ; Essential hypertension I10 and Acquired hypothyroidism E03.9 [place] [address] [place] [id number] [place] [address] 25064- 9399 Jun, Bipolar 2 disorder F31.81 [place] [address] [place] [id number] [place] [address] 05654- 3841 Jun, Bipolar 2 disorder F31.81 [facility] [address] [place] [id number] [place] [address] 44628- 1718 May, Sore throat J02.9 ; Acute serous otitis media of left ear, recurrence not specified H65.02 and Hypertension I10 [facility] [address] [place] [id number] [place] [address] 08558- 3321 May, Bipolar 2 disorder F31.81 [facility] [address] [id number] [place] [address] 64190- 8856 Apr, [facility] [address] [place] [id number] [place] [address] 72576- 6174 Apr, Bipolar 2 disorder F31.81 [facility] [address] [place] [id number] [place] [address] 49372- 1586 Mar, [facility] [address] [place] [address]- 5235 Feb, Bipolar 2 disorder F31.81 ; Attention deficit disorder F90.0 ; COLLEEN (generalized anxiety disorder) F41.1 and Panic disorder [episodic paroxysmal anxiety] without agoraphobia F41.0 [facility] [address] [address]- 4175 January, Bipolar 2 disorder F31.81 [facility] [address] [place] [id number] [place] [address] 31896- 0218 Dec, [facility] [id number] [place] [address] 96261- 1967 Dec, [facility] [address] [id number] [place] [address] 07749- 5445 Dec, [facility] [address] [place] [address] [id number] [place] [address] 69765- 3164 Dec, Generalized anxiety disorder F41.1 ; Bipolar 2 disorder F31.81 and Panic disorder [episodic paroxysmal anxiety] without agoraphobia F41.0 [facility] [address] [address]- 4031 Dec, [facility] [address] [place] [address] 25304- 1163 Dec, [facility] [address] [address]- 8568 Nov, [facility] [address] [address]- 6576 Nov, [facility] [address] [address]- 8440 Nov, [facility] [address] [place] [id number] [address]- 7565 Oct, [facility] [address] [address]- 3946 Oct, [facility] [address] [place] [address] [id number] [address]3 Oct, [facility] [address] [place] [id number] [place] [address] 626989- 1253 Oct, [facility] [address] [id number] [place] [address] 58830- 4419 Oct, [facility] [address] [place] [id number] [place] [address] 561305- 9832 Sep, Bipolar 2 disorder F31.81 ; COLLEEN (generalized anxiety disorder) F41.1 ; Attention deficit disorder F90.0 and Panic disorder [episodic paroxysmal anxiety] without agoraphobia F41.0 [facility] [address] [place] [id number] [place] [address] 432384- 4053 Sep, [facility] [address] [place] [place] [id number] [place] [address] 64698- 9697 Sep, [facility] [address] [id number] [place] [address] 26280- 6231 Sep, [facility] [address] [place] [id number] [place] [address] 94292- 3691 Aug, [facility] [address] [id number] [place] [address] 89310- 5380 Aug, [facility] [address] [id number] [place] [address] 17863- 6579 Aug, [facility] [address] [place] [id number] [place] [address] 738010- 9999 Aug, [facility] [address] [place] [address] 871390- 1480 Jul, [facility] [address] [id number] [place] [address] 566863- 7100 Jul, [facility] [address] [place] [address] 839161- 1389 Jul, [facility] [address] [place] [id number] [place] [address] 76158- 4280 Jun, [facility] [address] [place] [id number] [place] [address] 01350- 4409 Jun, Bipolar 2 disorder F31.81 ; Attention deficit disorder F90.0 ; COLLEEN (generalized anxiety disorder) F41.1 and Panic disorder [episodic paroxysmal anxiety] without agoraphobia F41.0 [facility] [address] 44850- 7580 Jun, [facility] [address] 49487- 9794 Jun, [facility] [address] 23972- 3541 Jun, Right foot pain M79.671 and Nausea and vomiting in adult R11.2 [facility] [address] 64423- 9333 May, [facility] [address] 13105- 7494 May, Other sinusitis, unspecified chronicity J32.9 ; Environmental allergies Z91.09 ; Other chronic pain G89.29 and Sacrococcygeal disorders, not elsewhere classified M53.3 [facility] [address] [place] [id number] [place] [address] 22886 -0796 May, Acute non-recurrent pansinusitis J01.40 and Gastroenteritis K52.9 [facility] [address] [place] [id number] [place] [address] 53563- 6386 May, [facility] [address] 91368- 5709 May, [facility] [address] 79375- 5551 Apr, Bronchitis J40 [facility] [address] 17699- 3019 Apr, [facility] [address] [place] [address]- 5867 Apr, [facility] [address] [address]- 1560 Apr, [facility] [address] [address] -4896 Apr, Nausea and vomiting in adult R11.2 [facility] [address] [place] [id number] [place] [address] 53076- 2966 Apr, Nausea and vomiting in adult R11.2 [facility] [address] [place] [address] 47152- 2870 Apr, Bipolar 2 disorder F31.81 ; Generalized anxiety disorder F41.1 ; Panic disorder [episodic paroxysmal anxiety] without agoraphobia F41.0 ; Attention deficit disorder F90.0 and COLLEEN (generalized anxiety disorder) F41.1 [facility] [address] [place] [address] 32906- 9421 Apr, [facility] [id number] [place] [address] 74697- 7492 Mar, [facility] [id number] [address]- 7133 Mar, [facility] [address] [address]- 6537 Mar, [facility] [address] [address]- 6378 Mar, Bipolar 2 disorder F31.81 ; Attention deficit disorder F90.0 ; COLLEEN (generalized anxiety disorder) F41.1 and Panic disorder [episodic paroxysmal anxiety] without agoraphobia F41.0 [facility] [address] [address]- 4641 Mar, [facility] [address] [address]- 2578 Feb, Bipolar 2 disorder F31.81 ; Generalized anxiety disorder F41.1 and Attention deficit disorder F90.0 [facility] [address] [place] [id number] [place] [address] 53788- 6024 Feb, Generalized anxiety disorder F41.1 [facility] [address] [place] [id number] [place] [address] 85516- 7659 Feb, Generalized anxiety disorder F41.1 ; Attention deficit disorder F90.0 and Bipolar 2 disorder F31.81 [facility] [address] [place] [id number] [place] [address] 15706- 2946 Feb, Bipolar 2 disorder F31.81 ; Generalized anxiety disorder F41.1 ; Attention deficit disorder F90.0 and Insomnia, unspecified type G47.00 [place] [address] [place] [id number] [place] [address] 83469- 1800 Feb, Excessive sweating R61 and Breast lump in upper outer quadrant N63 [facility] [address] [place] [place] [id number] [place] [address] 29276 -2713 January, Low back pain M54.5 ; Other chronic pain G89.29 and Urinary tract infection, site unspecified N39.0 [facility] [id number] [place] [address] 63473- 8748 January, Bipolar II disorder F31.81 [facility] [address] [place] [id number] [place] [address] 87076- 2869 January, [facility] [address] [place] [place] [id number] [place] [address] 97086- 4631 January, Insomnia, unspecified type G47.00 and Grief F43.20 [facility] [address] [place] [place] [id number] [place] [address] 01719- 8898 January, [facility] [address] 38326- 1947 Dec, [facility] [address] [place] [place] [id number] [place] [address] 38444- 6293 Dec, [facility] [address] [place] [address]- 8552 Dec, Bipolar 2 disorder F31.81 ; Generalized anxiety disorder F41.1 and Attention deficit disorder F90.0 [place] [address] 42770- 1546 Dec, Sinusitis J32.9 [facility] [address] 69855- 7304 14 Dec, 2015 Sinusitis J32.9 and Hypothyroid E03.9 [place] [address] 64684- 9611 Dec, [facility] [address] 65444 -2190 Dec, Cough R05 and Allergic rhinitis J30.9 [place] [address] 09946- 5838 Nov, Hypertension I10 ; Obesity E66.9 and Acne L70.9 [place] [address] 44382- 1841 Nov, [place] [address] 28899- 4168 Oct, [place] [address] 09701- 8773 Oct, [place] [address] 05030- 3218 Oct, [facility] [address] 24367- 2194 Oct, [place] [address] 16800- 4814 Sep, Lymphadenitis I88.9 ; Essential hypertension I10 and Acne, unspecified acne type L70.9 [place] [address] 14199- 9562 Sep, [place] [address] [address]- 0635 Sep, [facility] [id number] [place] [address] 67421- 5454 Sep, [facility] [address] [place] [address] 52280- 3799 Sep, Acquired hypothyroidism E03.9 [facility] [address] [place] [id number] [place] [address] 87165- 8672 Aug, Acquired hypothyroidism E03.9 [facility] [address] [place] [id number] [place] [address] 69557- 2278 Aug, Furuncle L02.92 [facility] [address] [place] [id number] [place] [address] 57549- 1653 Aug, [facility] [address] [place] [id number] [place] [address] 32427- 4989 Aug, Bipolar 2 disorder F31.81 ; Generalized anxiety disorder F41.1 ; Attention deficit disorder F90.0 and Obesity E66.9 [facility] [address] [id number] [place] [address] 59531- 9927 Aug, [facility] [id number] [place] [address] 02351- 7145 Aug, [facility] [address] [place] [address] 59351- 2106 Aug, Acquired hypothyroidism E03.9 [facility] [id number] [place] [address] 58928- 5255 Jul, Acquired hypothyroidism E03.9 ; Upper respiratory tract infection, unspecified type J06.9 and Nonintractable migraine, unspecified migraine type G43.009 [facility] [address] [address]- 0407 14 Jun, 2015 Acute pharyngitis, unspecified J02.9 [facility] [id number] [place] [address] 00656- 2546 May, Bipolar II disorder 296.89 ; Attention deficit disorder of childhood without mention of hyperactivity 314.00 ; Generalized anxiety disorder 300.02 and Morbid obesity with BMI of 45.0-49.9, adult 278.01 [facility] [address] [address]- 2546 May, Sinusitis 473.9 [facility] [id number] [place] [address] 53884- 2546 Apr, [facility] [id number] [place] [address] 90944- 2546 Mar, [facility] [id number] [place] [address] 20744- 2546 Mar, Bipolar II disorder 296.89 ; Generalized anxiety disorder 300.02 ; Obesity, unspecified 278.00 and Attention deficit disorder 314.00 [facility] [id number] [place] [address] 89970- 4746 Feb, [facility] [address] [address]- 6056 January, [facility] [id number] [place] [address] 75955- 8896 January, [facility] [address] [address]- 2546 January, [facility] [id number] [address]- 2546 January, [facility] [address] [address]- 2546 Dec, [facility] [id number] [place] [address] 87443- 2546 Dec, [facility] [address] [address]- 2546 Nov, [facility] [id number] [place] [address] 93008- 4235 18 Nov, 2014 [facility] [place] [facility] [address] [id number] [place] [address]- 8027 18 Nov, 2014 [facility] [place] [facility] [address] [id number] [place] [address]- 9494 11 Nov, 2014 [facility] [place] [facility] [address] [id number] [place] [address]- 3359 11 Nov, 2014 [facility] [place] [facility] [address] [id number] [place] [address]- 5014 Nov, [facility] [place] [facility] [address] [id number] [place] [address]- 6075 11 Nov, 2014 [facility] [place] [facility] [address] [id number] [place] [address]- 1589 Nov, [facility] [place] [facility] [address] [id number] [place] [address]- 0509 Nov, [facility] [place] [facility] [address] [id number] [place] [address]- 0589 10 Nov, 2014 [facility] [place] [facility] [address] [id number] [place] [address]- 0893 10 Nov, 2014 [facility] [place] [facility] [address] [id number] [place] [address]- 0887 Nov, [facility] [place] [facility] [address] [id number] [place] [address]- 3609 Nov, [facility] [place] [facility] [address] [id number] [place] [address]- 9691 Nov, [facility] [place] [facility] [address] [id number] [place] [address]- 0823 Oct, [facility] [place] [facility] [address] [id number] [place] [address]- 1227 Oct, [facility] [place] [facility] [address] [id number] [place] [address] Oct, [facility] [place] [facility] [address] [id number] [place] [address] Oct, 2014 [facility] [place] [facility] [address] [id number] [place] [address] Oct, 2014 [facility] [place] [facility] [address] [id number] [place] [address] Oct, 2014 [facility] [place] [facility] [address] [id number] [place] [address] Oct, 2014 [facility] [place] [facility] [address] [id number] [place] [address] Oct, 2014 [facility] [place] [facility] [address] [id number] [place] [address] Oct, 2014 [facility] [place] [facility] [address] [id number] [place] [address] Oct, [facility] [place] [facility] [address] [id number] [place] [address] Oct, [facility] [place] [facility] [address] [id number] [place] [address] Oct, [facility] [place] [facility] [address] [facility] [id number] [place] [address] Sep, [facility] [place] [facility] [address] [facility] [id number] [place] [address] Sep, [facility] [place] [facility] [address] [id number] [address] Sep, [facility] [place] [facility] [address] [id number] [place] [address] Sep, [facility] [place] [facility] [address] [id number] [place] [address] Sep, [facility] [place] [facility] [address] [id number] [place] [address] Sep, [facility] [place] [facility] [address] [id number] [place] [address] Sep, [facility] [place] [facility] [address] [id number] [place] [address] Sep, [facility] [place] [facility] [address] [id number] [place] [address] Aug, [facility] [place] [facility] [address] [id number] [place] [address] Aug, [facility] [place] [facility] [address] [id number] [place] [address] Aug, [facility] [place] [facility] [address] [id number] [place] [address] Aug, [facility] [place] [facility] [address] [id number] [place] [address] Aug, [facility] [place] [facility] [address] [id number] [place] [address] Aug, [facility] [place] [facility] [address] [id number] [place] [address] Aug, [facility] [place] [facility] [address] [id number] [place] [address] 6228 Aug, [facility] [place] [facility] [address] [id number] [place] [address] Aug, [facility] [place] [facility] [address] [id number] [place] [address] 8469 Aug, [facility] [place] [facility] [address] [id number] [place] [address] 5383 Aug, [facility] [place] [facility] [address] [id number] [place] [address]672 Aug, [facility] [place] [facility] [address] [id number] [place] [address] Aug, [facility] [place] [facility] [address] [id number] [place] [address] Aug, [facility] [place] [facility] [address] [id number] [place] [address]60 13 Jul, 2014 [facility] [place] [facility] [address] [id number] [place] [address] 4939 Jul, [facility] [place] [facility] [address] [id number] [place] [address]- 7148 Jul, [facility] [place] [facility] [address] [id number] [place] [address] 3847 Jul, [facility] [place] [facility] [address] [id number] [place] [address]- 1669 Jul, [facility] [place] [facility] [address] [id number] [place] [address]- 1639 Jul, [facility] [place] [facility] [address] [id number] [place] [address] 8041 Jul, [facility] [place] [facility] [address] [id number] [place] [address] 1957 Jul, [facility] [place] [facility] [address] [id number] [place] [address]- 4632 Jul, [facility] [place] [facility] [address] [id number] [place] [address]- 3331 Jul, [facility] [place] [facility] [address] [facility] [id number] [place] [address]- 5638 Jul, [facility] [place] [facility] [address] [id number] [place] [address] 06[address] Jul, [facility] [place] [facility] [address] [id number] [address] 16 Jun, 2014 [facility] [place] [facility] [address] [id number] [place] [address] 1976 16 Jun, 2014 [facility] [place] [facility] [address] [id number] [place] [address]- 5195 15 Jun, 2014 [facility] [place] [facility] [address] [id number] [place] [address]- 2630 14 Jun, 2014 [facility] [place] [facility] [address] [id number] [place] [address]- 9214 14 Jun, 2014 [facility] [place] [facility] [address] [id number] [place] [address]- 5611 14 Jun, 2014 [facility] [place] [facility] [address] [id number] [place] [address]- 4846 14 Jun, 2014 [facility] [place] [facility] [address] [id number] [place] [address]- 6950 13 Jun, 2014 [facility] [place] [facility] [address] [id number] [place] [address]- 4015 10 Jun, 2014 [facility] [place] [facility] [address] [id number] [place] [address]- 9176 10 Jun, 2014 [facility] [place] [facility] [address] [id number] [place] [address]- 7751 09 Jun, 2014 [facility] [place] [facility] [address] [id number] [place] [address]- 4428 09 Jun, 2014 [facility] [place] [facility] [address] [id number] [place] [address]- 7256 06 Jun, 2014 [facility] [place] [facility] [address] [id number] [address] 3[address] 06 Jun, 2014 [facility] [place] [facility] [address] [id number] [address] 5219 16 May, 2014 [facility] [place] [facility] [address] [id number] [place] [address] 3989 15 May, 2014 [facility] [place] [facility] [address] [id number] [place] [address] 4080 15 May, 2014 [facility] [place] [facility] [address] [id number] [place] [address]- 5195 15 May, 2014 [facility] [place] [facility] [address] [id number] [place] [address]- 6052 15 May, 2013 [facility] [place] [facility] [address] [id number] [place] [address]- 7058 15 May, 2013 [facility] [place] [facility] [address] [id number] [place] [address] 2995 15 May, 2013 [facility] [place] [facility] [address] [id number] [place] [address]- 2538 12 May, 2013 [facility] [place] [facility] [address] [id number] [place] [address]- 2293 12 May, 2013 [facility] [place] [facility] [address] [id number] [place] [address]- 3503 10 May, 2013 [facility] [place] [facility] [address] [id number] [place] [address]- 8972 10 May, 2013 [facility] [place] [facility] [address] [id number] [place] [address]- 1327 02 May, 2013 [facility] [place] [facility] [address] [id number] [place] [address]- 2139 02 May, 2013 [facility] [place] [facility] [address] [id number] [place] [address]- 6426 02 May, 2014 [facility] [place] [facility] [address] [id number] [place] [address]- 6179 May, [facility] [place] [facility] [address] [id number] [place] [address]- 0519 Apr, [facility] [place] [facility] [address] [id number] [place] [address]- 5642 Apr, [facility] [place] [facility] [address] [id number] [place] [address]- 8280 Apr, [facility] [place] [facility] [address] [id number] [place] [address]- 3775 Apr, [facility] [place] [facility] [address] [id number] [place] [address]- 5949 Apr, [facility] [place] [facility] [address] [id number] [place] [address]- 0529 Apr, [facility] [place] [facility] [address] [id number] [place] [address]- 6285 Apr, [facility] [place] [facility] [address] [id number] [place] [address]- 6040 Apr, [facility] [place] [facility] [address] [id number] [place] [address]- 7676 Apr, [facility] [place] [facility] [address] [id number] [place] [address] 7040 Mar, [facility] [place] [facility] [address] [id number] [place] [address]- 8701 Mar, [facility] [place] [facility] [address] [id number] [place] [address]- 5596 Mar, [facility] [place] [facility] [address] [id number] [place] [address]- 7404 Mar, [facility] [place] [facility] [address] [id number] [place] [address]- 0307 Mar, [facility] [place] [facility] [address] [id number] [place] [address]- 0268 Mar, [facility] [place] [facility] [address] [id number] [place] [address]- 0408 Mar, [facility] [place] [facility] [address] [id number] [place] [address]- 8481 Mar, [facility] [place] [facility] [address] [id number] [place] [address]- 7326 Mar, [facility] [place] [facility] [address] [id number] [place] [address]- 4706 Mar, [facility] [place] [facility] [address] [id number] [place] [address]- 5410 Mar, [facility] [place] [facility] [address] [id number] [place] [address]- 2956 Mar, [facility] [place] [facility] [address] [id number] [place] [address]- 2212 Mar, [facility] [place] [facility] [address] [id number] [place] [address]- 2752 Mar, [facility] [place] [facility] [address] [id number] [place] [address]- 8707 Mar, [facility] [place] [facility] [address] [id number] [place] [address]- 8772 Mar, [facility] [place] [facility] [address] [id number] [place] [address]- 8186 Mar, [facility] [place] [facility] [address] [id number] [place] [address]- 5361 Mar, [facility] [place] [facility] [address] [id number] [place] [address]- 4049 Feb, [facility] [place] [facility] [address] [id number] [place] [address]- 9098 Feb, [facility] [place] [facility] [address] [id number] [place] [address]- 2760 Feb, [facility] [place] [facility] [address] [id number] [place] [address]- 4229 Feb, [facility] [place] [facility] [address] [id number] [place] [address]- 0122 Feb, [facility] [place] [facility] [address] [id number] [place] [address]- 1178 Feb, [facility] [place] [facility] [address] [id number] [address]- 4808 Feb, [facility] [place] [facility] [address] [id number] [place] [address]- 7140 Feb, [facility] [place] [facility] [address] [id number] [place] [address]- 4710 Feb, [facility] [place] [facility] [address] [id number] [place] [address]- 0484 Feb, [facility] [place] [facility] [address] [id number] [place] [address]- 9604 January, [facility] [address] [id number] [place] [address]- 4922 January, [facility] [address] [id number] [place] [address]- 7248 January, [facility] [address] [id number] [place] [address]- 4533 January, [facility] [address] [id number] [place] [address]- 2244 January, [facility] [address] [id number] [place] [address]- 4137 January, [facility] [address] [id number] [place] [address]- 6246 January, [facility] [address] [id number] [place] [address]- 8250 January, [facility] [address] [id number] [place] [address]- 5823 January, [facility] [address] [id number] [place] [address]- 8206 January, [facility] [address] [id number] [place] [address]- 9656 January, [facility] [address] [id number] [place] [address]- 8557 January, [facility] [place] [facility] [address] [id number] [place] [address]- 9764 January, [facility] [place] [facility] [address] [id number] [place] [address]- 6686 January, [facility] [place] [facility] [address] [id number] [place] [address]- 3266 January, [facility] [place] [facility] [address] [id number] [place] [address]- 9397 Dec, [facility] [place] [facility] [address] [id number] [place] [address]- 3955 Dec, [facility] [place] [facility] [address] [id number] [place] [address]- 4957 Dec, [facility] [place] [facility] [address] [id number] [place] [address]- 3464 Dec, [facility] [place] [facility] [address] [id number] [place] [address]- 6140 Dec, [facility] [place] [facility] [address] [id number] [place] [address]- 6153 Dec, [facility] [place] [facility] [address] [id number] [place] [address]- 6805 Nov, [facility] [place] [facility] [address] [id number] [place] [address]- 2302 Nov, [facility] [place] [facility] [address] [id number] [place] [address]- 0002 Nov, [facility] [place] [facility] [address] [id number] [place] [address]- 0321 Nov, [facility] [place] [facility] [address] [id number] [place] [address]- 8937 Nov, [facility] [place] [facility] [address] [id number] [place] [address]- 0665 Oct, [facility] [place] [facility] [address] [id number] [place] [address]- 8151 Oct, [facility] [place] [facility] [address] [id number] [place] [address]- 1861 Oct, [facility] [place] [facility] [address] [id number] [place] [address]- 0492 Oct, [facility] [place] [facility] [address] [id number] [place] [address]- 5897 Oct, [facility] [place] [facility] [address] [id number] [place] [address]- 2634 06 Oct, 2013 [facility] [place] [facility] [address] [id number] [place] [address]- 4147 06 Oct, 2013 [facility] [place] [facility] [address] [id number] [place] [address] Oct, [facility] [place] [facility] [address] [id number] [place] [address]- 4403 Oct, [facility] [place] [facility] [address] [id number] [place] [address]- 1894 Oct, [facility] [place] [facility] [address] [id number] [place] [address]- 2710 Oct, [facility] [place] [facility] [address] [id number] [place] [address]- 3348 Sep, [facility] [place] [facility] [address] [id number] [place] [address]- 9599 Sep, [facility] [place] [facility] [address] [id number] [place] [address]- 7213 Sep, [facility] [place] [facility] [address] [id number] [place] [address]- 1019 Sep, [facility] [place] [facility] [address] [id number] [place] [address]- 0664 Aug, [facility] [place] [facility] [address] [id number] [place] [address]- 9454 Aug, [facility] [place] [facility] [address] [id number] [place] [address]- 2128 Jul, [facility] [place] [facility] [address] [id number] [place] [address]- 7352 Jul, [facility] [place] [facility] [address] [id number] [place] [address]- 9016 Jul, [facility] [place] [facility] [address] [id number] [place] [address]- 3589 Jul, [facility] [place] [facility] [address] [id number] [place] [address] 2545 Jul, [facility] [place] [facility] [address] [id number] [place] [address] 2546 Jun, [facility] [place] [facility] [address] [id number] [place] [address] 2543 Jun, [facility] [place] [facility] [address] [id number] [place] [address] 2544 May, [facility] [place] [facility] [address] [id number] [place] [address]- 6142 Mar, [facility] [place] [facility] [address] [id number] [place] [address]- 2326 Mar, [facility] [place] [facility] [address] [id number] [place] [address] 2545 Mar, [facility] [place] [facility] [address] [id number] [place] [address]- 7366 Feb, [facility] [place] [facility] [address] [id number] [place] [address]- 7907 January, [facility] [place] [facility] [address] [id number] [place] [address]- 1365 Dec, [facility] [place] [facility] [address] [id number] [place] [address] 2540 Nov, [facility] [place] [facility] [address] [id number] [address] 2542 Nov, [facility] [place] [facility] [address] [id number] [place] [address] 2549 Nov, [facility] [place] [facility] [address] [id number] [place] [address]- 2546 Oct, [facility] [place] [facility] [address] [id number] [address]- 2546 Oct, [facility] [place] [facility] [address] [id number] [address]- 2546 Oct, [facility] [address] [facility] [id number] [place] [address]- 2546 Oct, [facility] [address] [facility] [id number] [place] [address] 2546 Sep, IMMUNIZATIONS No Known Immunizations SOCIAL HISTORY Never Assessed REASON FOR VISIT Transition of Care, PT reports the lymph nodes and swelling are still occuring, PT notes pain everywhere.-Regino DELGADILLO PLAN OF CARE VITAL SIGNS Height 59 in 2018-04-01 Weight 159.4 lbs 2018-04-01 Temperature 98.0 degrees Fahrenheit 2018-04-01 Heart Rate 62 bpm 2018-04-01 Respiratory Rate 20 2018-04-01 Oximetry 98 % 2018-04-01 BMI 32.19 kg/m2 2018-04-01 Blood pressure systolic 132 mmHg 2018-04-01 Blood pressure diastolic 72 mmHg 2018-04-01 MEDICATIONS Medication Instructions Dosage Frequency Start Date End Date Duration Status HydrOXYzine Pamoate 50 MG Orally 2 times a day as needed for anxiety 1 capsule as needed Feb, 30 day(s) Active Citalopram Hydrobromide 20 mg Orally Once a day 1 tablet 24h Feb, 30 day(s) Active Maxalt 10 MG Orally Once a day 1 tablet as needed 24h 30 days Active Guanfacine HCl 2 MG TAKE ONE-HALF TABLET BY MOUTH ONCE DAILY AM; ONE-HALF TABLET AT 2:00PM AND ONE TABLET AT BEDTIME 30 Active Lisinopril 20 mg 1 tablet 24h 30 Active Amitriptyline HCl 50 MG Orally Once a day for migraine and sleep Take 1/2 tab for three nights then increase to 1 whole tablet 30 Active Levothyroxine Sodium 200 MCG Orally Once a day 1 tablet 24h 30 Active Norvasc 5 mg Orally Once a day 1 tablet 24h May, 30 day(s) Active Meloxicam 7.5 MG Orally 2 times a day 1 tablet 12h Mar, Sep, 30 day(s) Active Tizanidine HCl 4 MG Orally 2 times a day 1 tablet as needed 12h Nov, Active Levothyroxine Sodium 50 MCG Orally Once a day 1 tablet on an empty stomach in the morning 24h Jun, 30 day(s) Active NuvaRing 0.12-0.015 MG/24HR Vaginal as directed 1 ring Mar, 30 day(s) Active RESULTS No Results PROCEDURES [...]
--- OUTSIDE RECORDS SUMMARY | 2018-09-23 22:09 | XMS REPORT ---
Author Author KING ZAK [facility] Address [address] [place] [address] Care Team Providers Care Turntable Operator Name Role Phone ZAK WASHINGTON Unavailable PROBLEMS Type Condition ICD9-CM Code HVU44-PK Code Onset Dates Condition Status SNOMED Code Problem Essential hypertension I10 Active 67935216 Problem Primary insomnia F51.01 Active 9732980 Problem Acquired hypothyroidism E03.9 Active 793205045 Problem Hypothyroidism (acquired) E03.9 Active 281260315 Problem Arthritis M19.90 Active 4496952 Problem Sciatica of right side M54.31 Active 75161950 Problem Migraine with aura and without status migrainosus, not intractable G43.109 Active 5206063 Problem Attention-deficit hyperactivity disorder, predominantly inattentive type F90.0 Active 77880740 Problem Current nonadherence to medical treatment Z91.19 Active 3794703 Problem LGSIL on Pap smear of cervix R87.612 Active 095457375 Problem Postoperative hypothyroidism E89.0 Active 46063315 Problem Generalized anxiety disorder F41.1 Active 16682555 Problem Bipolar 2 disorder F31.81 Active 64664062 Problem Abnormal liver function K76.89 Active 66464790 Problem Acne L70.9 Active 73149077 Problem Obesity E66.9 Active 708198625 Problem Panic disorder [episodic paroxysmal anxiety] without agoraphobia F41.0 Active 49874821 ALLERGIES Substance Reaction Event Type Date Status Sulfacetamide Sodium Unknown Drug Allergy Mar, Active Penicillin V Potassium hives Drug Allergy Mar, Active Benzodiazepines Failed UDS Non Drug Allergy Mar, Active Hydrocodone Failed UDS Non Drug Allergy Mar, Active ENCOUNTERS Encounter Location Date Diagnosis [facility] [address] [facility] [id number] [address] May, [facility] [address] [facility] [id number], [place] [address] Apr, [place] [id number] [place] [address] 76354- 6663 Apr, Generalized anxiety disorder F41.1 ; Arthritis M19.90 ; Hypothyroidism (acquired) E03.9 and Lymph node enlargement R59.9 [place] [address] [place] [id number] [place] [address] 67628- 3915 Apr, Arthritis M19.90 and Sciatica of right side M54.31 [place] [address] [place] [id number] [place] [address] 12727- 4584 Mar, Arthritis M19.90 ; Hypothyroidism (acquired) E03.9 and Lymph node enlargement R59.9 [place] [address] [place] [id number] [place] [address] 11698- 8341 Mar, Well woman exam with routine gynecological exam Z01.419 ; control counseling Z30.09 ; Acquired hypothyroidism E03.9 ; Sciatica of right side M54.31 ; Breast tenderness N64.4 and Generalized anxiety disorder F41.1 [place] [address] [place] [id number] [place] [address] 28326- 6149 06 Mar, 2018 [place] [address] [place] [id number] [place] [address] 01069- 3765 Feb, Bipolar 2 disorder F31.81 ; Generalized anxiety disorder F41.1 ; Attention-deficit hyperactivity disorder, predominantly inattentive type F90.0 and Current nonadherence to medical treatment Z91.19 [place] [address] [place] [id number] [place] [address] 95983- 7776 Feb, [place] [address] [place] [id number] [place] [address] 61490- 9406 Nov, Normal physical exam Z00.00 and Enlarged lymph node R59.9 [place] [address] [place] [id number] [place] [address] 83321- 6417 Nov, Enlarged lymph node R59.9 ; Abnormal liver function K76.89 and Hypothyroid E03.9 [place] [address] [place] [id number] [place] [address] 77084- 9689 Oct, Bipolar 2 disorder F31.81 [place] [address] [place] [id number] [place] [address] 06845- 1843 Oct, Sciatica of right side M54.31 and Essential hypertension I10 [place] [address] [place] [id number] [place] [address] 84861- 2694 Oct, [place] [address] 06221- 4387 Aug, Hypothyroid E03.9 [place] [address] 90765- 2540 Aug, [place] [address] 51183- 9712 Aug, Bipolar 2 disorder F31.81 [place] [address] 99564- 5085 05 Aug, 2017 Abnormal liver function K76.89 [place] [address] [place] [id number] [place] [address] 70977- 8354 Jul, Bipolar 2 disorder F31.81 [facility] [address] [place] [id number] [place] [address] 59262 -3514 Jul, [place] [address] [place] [id number] [place] [address] 02823- 4520 Jul, Bipolar 2 disorder F31.81 ; Generalized anxiety disorder F41.1 ; Attention-deficit hyperactivity disorder, predominantly inattentive type F90.0 and Current nonadherence to medical treatment Z91.19 [facility] [address] [place] [id number] [place] [address] 53609 -9353 14 Jul, 2017 Essential hypertension I10 ; Other viral agents as the cause of diseases classified elsewhere B97.89 ; Acute upper respiratory infection, unspecified J06.9 and BMI 40.0-44.9, adult Z68.41 [place] [address] [place] [id number] [place] [address] 73523- 6725 Jul, [facility] [address] [place] [address] 14344- 6062 Jul, [facility] [address] [place] [id number] [place] [address] 01427- 4322 Jun, [facility] [address] [place] [id number] [place] [address] 89042- 7412 Jun, [facility] [address] [place] [id number] [place] [address] 03724- 2228 Jun, Dysuria R30.0 ; Urinary tract infection, site not specified N39.0 ; Hematuria, unspecified R31.9 ; Sciatica of right side M54.31 ; Migraine with aura and without status migrainosus, not intractable G43.109 ; Primary insomnia F51.01 ; Essential hypertension I10 and Acquired hypothyroidism E03.9 [place] [address] [place] [id number] [place] [address] 67828- 5839 Jun, Bipolar 2 disorder F31.81 [place] [address] [place] [id number] [place] [address] 26531- 9085 Jun, Bipolar 2 disorder F31.81 [place] [address] [place] [id number] [place] [address] 90191- 2904 May, Sore throat J02.9 ; Acute serous otitis media of left ear, recurrence not specified H65.02 and Hypertension I10 [facility] [address] [place] [id number] [place] [address] 81361- 7874 May, Bipolar 2 disorder F31.81 [facility] [address] [place] [address] 76788- 1374 Apr, [facility] [address] [place] [id number] [place] [address] 80200- 0619 Apr, Bipolar 2 disorder F31.81 [facility] [address] [place] [id number] [place] [address] 56442- 6632 Mar, [facility] [address] [place] [address] 7892 Feb, Bipolar 2 disorder F31.81 ; Attention deficit disorder F90.0 ; COLLEEN (generalized anxiety disorder) F41.1 and Panic disorder [episodic paroxysmal anxiety] without agoraphobia F41.0 [facility] [address] [id number] [address] 6011 January, Bipolar 2 disorder F31.81 [facility] [address] [place] [id number] [place] [address] 03529- 4402 Dec, [facility] [address] [place] [id number] [place] [address] 15464- 9217 Dec, [facility] [address] [place] [id number] [place] [address] 26596- 1251 Dec, [facility] [address] [place] [id number] [place] [address] 51013- 1707 Dec, Generalized anxiety disorder F41.1 ; Bipolar 2 disorder F31.81 and Panic disorder [episodic paroxysmal anxiety] without agoraphobia F41.0 [facility] [address] [place] [id number] [place] [address] 64187- 9708 Dec, [facility] [address] [place] [id number] [place] [address] 95040- 6080 Dec, [facility] [address], [place] [address]- 6217 Nov, [facility] [address] [place] [id number] [place] [address] 79471- 2048 Nov, [facility] [address] [place] [id number] [place] [address] 50097- 7886 Nov, [facility] [address] [place] [id number] [place] [address] 23149- 3277 Oct, [facility] [address] [address]- 4280 Oct, [facility] [address] [place] [address]- 7916 Oct, [facility] [id number] [place] [address] 48379- 7776 Oct, [facility] [address] [place] [id number] [place] [address] 56997- 2831 Oct, [facility] [address] [place] [id number] [place] [address] 07118- 4504 Sep, Bipolar 2 disorder F31.81 ; COLLEEN (generalized anxiety disorder) F41.1 ; Attention deficit disorder F90.0 and Panic disorder [episodic paroxysmal anxiety] without agoraphobia F41.0 [facility] [address] [place] [id number] [place] [address] 61592- 6548 Sep, [facility] [address] [place] [id number] [place] [address] 65562- 1008 Sep, [facility] [address] [place] [id number] [place] [address] 45027- 1349 Sep, [facility] [id number] [place] [address] 74162- 9506 Aug, [facility] [id number] [place] [address] 45614- 2038 Aug, [facility] [address], [place] [address]- 2118 Aug, [facility] [address], [place] [address]- 7197 Aug, [facility] [place] [facility] [address], [place] [address]- 1777 Jul, [facility] [address] [place] [id number] [place] [address] 992548- 5884 Jul, [facility] [place] [facility] [address] 1320 Jul, [facility] [address] [place] [id number] [place] [address] 73315- 4138 Jun, [facility] [address] [place] [address] 46820- 3419 Jun, Bipolar 2 disorder F31.81 ; Attention deficit disorder F90.0 ; COLLEEN (generalized anxiety disorder) F41.1 and Panic disorder [episodic paroxysmal anxiety] without agoraphobia F41.0 [facility] [address] [place] [id number] [place] [address] 60655- 8066 Jun, [facility] [address] [place] [id number] [place] [address] 52829- 7757 Jun, [facility] [address] [place] [id number] [place] [address] 34732- 7360 Jun, Right foot pain M79.671 and Nausea and vomiting in adult R11.2 [facility] [address] [place] [id number] [place] [address] 83887- 8954 May, [facility] [address] [place] [id number] [place] [address] 40982- 6292 May, Other sinusitis, unspecified chronicity J32.9 ; Environmental allergies Z91.09 ; Other chronic pain G89.29 and Sacrococcygeal disorders, not elsewhere classified M53.3 [facility] [address] [place] [address] 47804 -1558 May, Acute non-recurrent pansinusitis J01.40 and Gastroenteritis K52.9 [facility] [address] [place] [id number] [place] [address] 26815- 3812 May, [facility] [address] [place] [id number] [place] [address] 10822- 2188 May, [facility] [address] [place] [id number] [place] [address] 05012- 9477 Apr, Bronchitis J40 [facility] [address] [place] [id number] [place] [address] 18289- 9685 Apr, [facility] [address] [id number] [address]- 1314 Apr, [facility] [address], [place] [address]- 5697 Apr, [facility] [address], [place] [address] -2642 Apr, Nausea and vomiting in adult R11.2 [facility] [address] [place] [id number] [place] [address] 43956- 4275 Apr, Nausea and vomiting in adult R11.2 [facility] [address], [place] [address]- 9413 Apr, Bipolar 2 disorder F31.81 ; Generalized anxiety disorder F41.1 ; Panic disorder [episodic paroxysmal anxiety] without agoraphobia F41.0 ; Attention deficit disorder F90.0 and COLLEEN (generalized anxiety disorder) F41.1 [facility] [address] [place] [id number] [place] [address] 03371- 8644 Apr, [facility] [address] [place] [id number] [place] [address] 53317- 2069 Mar, [facility] [address] [place] [address] 34496- 1286 Mar, [facility] [address], [place] [address]- 6145 Mar, [facility] [address], [place] [address]- 5889 Mar, Bipolar 2 disorder F31.81 ; Attention deficit disorder F90.0 ; OCLLEEN (generalized anxiety disorder) F41.1 and Panic disorder [episodic paroxysmal anxiety] without agoraphobia F41.0 [facility] [address], [place] [address]- 4377 Mar, [facility] [address], [place] [address]- 1857 Feb, Bipolar 2 disorder F31.81 ; Generalized anxiety disorder F41.1 and Attention deficit disorder F90.0 [facility] [address] [place] [id number] [place] [address] 31608- 2720 Feb, Generalized anxiety disorder F41.1 [facility] [address] [place] [id number] [place] [address] 09235- 9923 Feb, Generalized anxiety disorder F41.1 ; Attention deficit disorder F90.0 and Bipolar 2 disorder F31.81 [facility] [address] [place] [id number] [place] [address] 32427- 5351 Feb, Bipolar 2 disorder F31.81 ; Generalized anxiety disorder F41.1 ; Attention deficit disorder F90.0 and Insomnia, unspecified type G47.00 [place] [address] [place] [id number] [place] [address] 40323- 9712 Feb, Excessive sweating R61 and Breast lump in upper outer quadrant N63 [facility] [address] [place] [id number] [place] [address] 83963 -3359 January, Low back pain M54.5 ; Other chronic pain G89.29 and Urinary tract infection, site unspecified N39.0 [facility] [address] [place] [id number] [place] [address] 75154- 1543 January, Bipolar II disorder F31.81 [facility] [address] [place] [address] 94846- 1298 January, [facility] [address] [place] [id number] [place] [address] 25548- 8777 January, Insomnia, unspecified type G47.00 and Grief F43.20 [facility] [address] [place] [id number] [place] [address] 32131- 8037 January, [facility] [address] [place] [id number] [place] [address] 79885- 8855 Dec, [facility] [address] [place] [address] 59535- 3247 Dec, [facility] [address] [place] [id number] [place] [address] 02577- 2555 Dec, Bipolar 2 disorder F31.81 ; Generalized anxiety disorder F41.1 and Attention deficit disorder F90.0 [place] [address] 76405- 8300 21 Dec, 2015 Sinusitis J32.9 [place] [address] 19310- 8898 14 Dec, 2015 Sinusitis J32.9 and Hypothyroid E03.9 [place] [address] 62429- 9455 Dec, [facility] [address] 35709 -4203 Dec, Cough R05 and Allergic rhinitis J30.9 [place] [address] 01423- 7532 Nov, Hypertension I10 ; Obesity E66.9 and Acne L70.9 [place] [address] 94948- 3674 Nov, [place] [address] 68480- 4981 Oct, [facility] [address] [place] [id number] [place] [address] 10154- 8559 Oct, [place] [address] 79544- 6087 Oct, [place] [address] 61632- 0333 Oct, [place] [address] 62856- 8065 Sep, Lymphadenitis I88.9 ; Essential hypertension I10 and Acne, unspecified acne type L70.9 [place] [address] 18801- 1893 Sep, [facility] [address], [place] [address]- 7688 Sep, [facility] [address] [place] [id number] [place] [address] 82326- 5240 Sep, [facility] [address] [place] [id number] [place] [address] 23223- 1533 Sep, Acquired hypothyroidism E03.9 [facility] [address] [place] [id number] [place] [address] 90803- 8708 Aug, Acquired hypothyroidism E03.9 [facility] [address] [place] [id number] [place] [address] 95236- 8035 Aug, Furuncle L02.92 [facility] [address] [place] [id number] [place] [address] 77278- 8080 Aug, [facility] [address] [place] [id number] [place] [address] 12005- 7648 Aug, Bipolar 2 disorder F31.81 ; Generalized anxiety disorder F41.1 ; Attention deficit disorder F90.0 and Obesity E66.9 [facility] [address] [place] [id number] [place] [address] 27768- 2429 Aug, [facility] [address] [place] [id number] [place] [address] 94405- 2397 Aug, [facility] [address] [place] [id number] [place] [address] 27272- 3173 Aug, Acquired hypothyroidism E03.9 [facility] [address] [id number] [place] [address] 19405- 6899 Jul, Acquired hypothyroidism E03.9 ; Upper respiratory tract infection, unspecified type J06.9 and Nonintractable migraine, unspecified migraine type G43.009 [facility] [address], [place] [address]- 1829 14 Jun, 2015 Acute pharyngitis, unspecified J02.9 [facility] [address] [place] [id number] [place] [address] [place] [address]- 0282 May, Bipolar II disorder 296.89 ; Attention deficit disorder of childhood without mention of hyperactivity 314.00 ; Generalized anxiety disorder 300.02 and Morbid obesity with BMI of 45.0-49.9, adult 278.01 [facility] [address], [place] [address]- 6836 May, Sinusitis 473.9 [facility] [id number] [place] [address] 77007- 4054 Apr, [facility] [address] [id number] [place] [address] 40734- 6574 Mar, [facility] [address] [id number] [place] [address] 63376- 7188 Mar, Bipolar II disorder 296.89 ; Generalized anxiety disorder 300.02 ; Obesity, unspecified 278.00 and Attention deficit disorder 314.00 [facility] [id number] [place] [address] 73090- 4086 Feb, [facility] [id number] [place] [address] 24907- 4531 January, [facility] [id number] [place] [address] 70480- 5286 January, [facility] [address], [place] [address]- 5056 January, [facility] [address], [place] [address]- 5546 January, [facility] [address], [place] [address]- 0589 Dec, [facility] [id number] [place] [address] 88076- 4312 Dec, [facility] [address], [place] [address]- 0206 Nov, [facility] [id number] [place] [address] 05843023- 5243 18 Nov, 2014 [facility] [place] [facility] [address] [id number] [place] [address]- 8920 18 Nov, 2014 [facility] [place] [facility] [address] [id number] [place] [address]- 4104 Nov, [facility] [place] [facility] [address] [id number] [place] [address]- 5345 Nov, [facility] [place] [facility] [address] [id number] [place] [address]- 9800 Nov, [facility] [place] [facility] [address] [id number] [place] [address]- 2420 Nov, [facility] [place] [facility] [address] [id number] [place] [address]- 2157 Nov, [facility] [place] [facility] [address] [id number] [place] [address]- 7756 Nov, [facility] [place] [facility] [address] [id number] [place] [address]- 8216 10 Nov, 2014 [facility] [place] [facility] [address] [id number] [place] [address]- 8784 Nov, [facility] [place] [facility] [address] [id number] [place] [address]- 1121 Nov, [facility] [place] [facility] [address] [id number] [place] [address]- 5705 Nov, [facility] [place] [facility] [address] [id number] [place] [address]- 3227 Nov, [facility] [place] [facility] [address] [id number] [place] [address]- 0533 Oct, [facility] [place] [facility] [address] [id number] [place] [address]- 7729 Oct, [facility] [place] [facility] [address] [id number] [place] [address]- 1494 Oct, [facility] [place] [facility] [address] [id number] [place] [address]- 3080 Oct, 2014 [facility] [place] [facility] [address] [id number] [place] [address]- 2571 Oct, 2014 [facility] [place] [facility] [address] [id number] [place] 9506 Oct, 2014 [facility] [place] [facility] [address] [id number] [place] [address]- 0211 Oct, 2014 [facility] [place] [facility] [address] [id number] [place] [address]- 0605 Oct, 2014 [facility] [place] [facility] [address] [id number] [place] [address]- 0013 Oct, 2014 [facility] [place] [facility] [address] [facility] [id number] [place] [address]- 7847 Oct, [facility] [place] [facility] [address] [facility] [id number] [place] [address]- 2438 Oct, [facility] [place] [facility] [address] [id number] [place] [address] Oct, [facility] [place] [facility] [address] [facility] [id number] [place] [address] Sep, [facility] [place] [facility] [address] [facility] [id number] [place] [address] Sep, [facility] [place] [facility] [address] [id number], [place] [address] Sep, [facility] [place] [facility] [address] [id number], [place] [address] Sep, [facility] [place] [facility] [address] [id number] [place] [address] Sep, [facility] [place] [facility] [address] [facility] [id number][place] [address] [address] Sep, [facility] [place] [facility] [address] [id number], [place] [address] Sep, [facility] [place] [facility] [address] [id number] [place] [address] Sep, [facility] [place] [facility] [address] [id number] [place] [address] Aug, [facility] [place] [facility] [address] [id number] [place] [address] Aug, [facility] [place] [facility] [address] [id number] [place] [address] Aug, [facility] [place] [facility] [address] [id number] [place] [address] Aug, [facility] [place] [facility] [address] [id number] [place] [address] Aug, [facility] [place] [facility] [address] [id number] [place] [address] Aug, [facility] [place] [facility] [address] [id number] [place] [address] Aug, [facility] [place] [facility] [address] [id number] [place] [address] Aug, [facility] [place] [facility] [address] [id number] [place] [address] Aug, [facility] [place] [facility] [address] [id number] [place] [address] Aug, [facility] [place] [facility] [address] [id number] [place] [address] 4676 Aug, [facility] [place] [facility] [address] [id number] [place] [address] 3178 Aug, [facility] [place] [facility] [address] [id number] [place] [address] Aug, [facility] [place] [facility] [address] [id number] [place] [address] Aug, [facility] [place] [facility] [address] [id number] [place] [address]26 13 Jul, 2014 [facility] [place] [facility] [address] [id number] [place] [address] 8381 Jul, [facility] [place] [facility] [address] [id number] [place] [address] 7917 Jul, [facility] [place] [facility] [address] [id number] [place] [address] Jul, [facility] [place] [facility] [address] [id number] [place] [address] 9976 Jul, [facility] [place] [facility] [address] [id number] [place] [address] 6514 Jul, [facility] [place] [facility] [address] [id number] [place] [address] 3539 Jul, [facility] [place] [facility] [address] [id number] [place] [address]- 1073 Jul, [facility] [place] [facility] [address] [id number] [place] [address] 4614 Jul, [facility] [place] [facility] [address] [id number] [place] [address]- 8805 Jul, [facility] [place] [facility] [address] [id number] [place] [address]- 7346 Jul, [facility] [place] [facility] [address] [id number] [place] [address]- 9598 Jul, [facility] [place] [facility] [address] [id number] [place] [address]- 3508 16 Jun, 2014 [facility] [place] [facility] [address] [id number] [place] [address]- 8519 16 Jun, 2014 [facility] [place] [facility] [address] [id number] [place] [address]- 0152 15 Jun, 2014 [facility] [place] [facility] [address] [id number] [place] [address]- 3219 14 Jun, 2014 [facility] [place] [facility] [address] [id number] [place] [address]- 0644 14 Jun, 2014 [facility] [place] [facility] [address] [id number] [place] [address]- 4409 14 Jun, 2014 [facility] [place] [facility] [address] [id number] [place] [address]- 1372 14 Jun, 2014 [facility] [place] [facility] [address] [id number] [place] [address]- 3675 13 Jun, 2014 [facility] [place] [facility] [address] [id number] [place] [address]- 0365 10 Jun, 2014 [facility] [place] [facility] [address] [id number] [place] [address]- 7883 10 Jun, 2014 [facility] [place] [facility] [address] [id number] [place] [address]- 2417 09 Jun, 2014 [facility] [place] [facility] [address] [id number], [place] [address] 6666 09 Jun, 2014 [facility] [place] [facility] [address] [id number] [place] [address]- 0034 06 Jun, 2014 [facility] [place] [facility] [address] [id number], [place] [address] 06 Jun, 2014 [facility] [place] [facility] [address] [id number], [place] [address] 5677 16 May, 2013 [facility] [place] [facility] [address] [id number], [place] [address]45 15 May, 2014 [facility] [place] [facility] [address] [id number] [place] [address]- 1839 15 May, 2014 [facility] [place] [facility] [address] [id number], [place] [address] 2825 15 May, 2013 [facility] [place] [facility] [address] [id number], [place] [address] 6924 15 May, 2014 [facility] [place] [facility] [address] [id number] [place] [address]- 8750 15 May, 2013 [facility] [place] [facility] [address] [id number] [place] [address]- 8358 15 May, 2013 [facility] [place] [facility] [address] [id number] [place] [address]- 8905 12 May, 2013 [facility] [place] [facility] [address] [id number] [place] [address]- 3143 12 May, 2013 [facility] [place] [facility] [address] [id number] [place] [address]- 8987 10 May, 2013 [facility] [place] [facility] [address] [id number] [place] [address]- 6092 10 May, 2013 [facility] [place] [facility] [address] [id number] [place] [address]- 4500 02 May, 2013 [facility] [place] [facility] [address] [id number] [place] [address]- 2440 02 May, 2013 [facility] [place] [facility] [address] [id number] [place] [address]- 9035 02 May, 2013 [facility] [place] [facility] [address] [id number] [place] [address]- 9540 02 May, 2013 [facility] [place] [facility] [address] [id number] [place] [address]- 4602 28 Apr, 2014 [facility] [place] [facility] [address] [id number] [place] [address]- 7824 Apr, [facility] [place] [facility] [address] [id number] [place] [address]- 9153 Apr, [facility] [place] [facility] [address] [id number] [place] [address]- 8795 Apr, [facility] [place] [facility] [address] [id number] [place] [address]- 3936 Apr, [facility] [place] [facility] [address] [id number] [place] [address]- 5679 Apr, [facility] [place] [facility] [address] [id number] [place] [address]- 8813 Apr, [facility] [place] [facility] [address] [id number] [place] [address]- 1217 Apr, [facility] [place] [facility] [address] [id number] [place] [address]- 2942 Apr, [facility] [place] [facility] [address] [id number] [place] [address]- 3859 Mar, [facility] [place] [facility] [address] [id number] [place] [address]- 5676 Mar, [facility] [place] [facility] [address] [id number] [place] [address]- 2735 Mar, [facility] [place] [facility] [address] [id number] [place] [address]- 6388 Mar, [facility] [place] [facility]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
--- OUTSIDE RECORDS SUMMARY | 2018-09-23 22:10 | XMS REPORT ---
Author Author BALJIT OSEI [facility] Address [address] [place] [address] Care Team Providers Care Natural Resource Technician Name Role Phone BALJIT OSEI Unavailable PROBLEMS Type Condition ICD9-CM Code XQI10-QQ Code Onset Dates Condition Status SNOMED Code Problem Essential hypertension I10 Active 58088559 Problem Primary insomnia F51.01 Active 1405229 Problem Acquired hypothyroidism E03.9 Active 717890287 Problem Hypothyroidism (acquired) E03.9 Active 675507367 Problem Arthritis M19.90 Active 4813966 Problem Sciatica of right side M54.31 Active 10498744 Problem Migraine with aura and without status migrainosus, not intractable G43.109 Active 2689285 Problem Attention-deficit hyperactivity disorder, predominantly inattentive type F90.0 Active 64664583 Problem Current nonadherence to medical treatment Z91.19 Active 1036534 Problem LGSIL on Pap smear of cervix R87.612 Active 905164545 Problem Postoperative hypothyroidism E89.0 Active 10098297 Problem Generalized anxiety disorder F41.1 Active 83123939 Problem Bipolar 2 disorder F31.81 Active 81941223 Problem Abnormal liver function K76.89 Active 89138032 Problem Acne L70.9 Active 34116960 Problem Obesity E66.9 Active 149207844 Problem Panic disorder [episodic paroxysmal anxiety] without agoraphobia F41.0 Active 80363918 ALLERGIES No Information ENCOUNTERS Encounter Location Date Diagnosis [facility] [address] [facility] [id number] [address] May, [facility] [address] [id number] [address] 7842 Apr, [facility] [address] [facility] [id number], [place] [address] Apr, Generalized anxiety disorder F41.1 ; Arthritis M19.90 ; Hypothyroidism (acquired) E03.9 and Lymph node enlargement R59.9 [place] [id number] [place] [address] 65856- 4749 13 Apr, 2018 Arthritis M19.90 and Sciatica of right side M54.31 [place] [id number] [place] [address] 82425- 8354 Mar, Arthritis M19.90 ; Hypothyroidism (acquired) E03.9 and Lymph node enlargement R59.9 [place] [id number] [place] [address] 24765- 5681 10 Mar, 2018 Well woman exam with routine gynecological exam Z01.419 ; control counseling Z30.09 ; Acquired hypothyroidism E03.9 ; Sciatica of right side M54.31 ; Breast tenderness N64.4 and Generalized anxiety disorder F41.1 [place] [id number] [place] [address] 42808- 4623 Mar, [place] [id number] [place] [address] 32510- 9903 Feb, Bipolar 2 disorder F31.81 ; Generalized anxiety disorder F41.1 ; Attention-deficit hyperactivity disorder, predominantly inattentive type F90.0 and Current nonadherence to medical treatment Z91.19 [place] [id number] [place] [address] 20274- 3037 Feb, [place] [id number] [place] [address] 62316- 3180 Nov, Normal physical exam Z00.00 and Enlarged lymph node R59.9 [place] [id number] [place] [address] 23245- 7120 Nov, Enlarged lymph node R59.9 ; Abnormal liver function K76.89 and Hypothyroid E03.9 [place] [id number] [place] [address] 12834- 5057 Oct, Bipolar 2 disorder F31.81 [place] [id number] [place] [address] 00549- 7539 Oct, Sciatica of right side M54.31 and Essential hypertension I10 [place] [id number] [place] [address] 00072- 4699 Oct, [facility] [id number] [place] [address] 06306- 7147 Aug, Hypothyroid E03.9 [place] [address] 82372- 5813 Aug, [place] [address] 61761- 2756 Aug, Bipolar 2 disorder F31.81 [place] [address] 97475- 8273 Aug, Abnormal liver function K76.89 [place] [address] 54866- 2087 Jul, Bipolar 2 disorder F31.81 [facility] [id number] [place] [address] 80457 -7669 Jul, [place] [address] 37086- 5879 Jul, Bipolar 2 disorder F31.81 ; Generalized anxiety disorder F41.1 ; Attention-deficit hyperactivity disorder, predominantly inattentive type F90.0 and Current nonadherence to medical treatment Z91.19 [facility] [id number] [place] [address] 25135 -9000 Jul, Essential hypertension I10 ; Other viral agents as the cause of diseases classified elsewhere B97.89 ; Acute upper respiratory infection, unspecified J06.9 and BMI 40.0-44.9, adult Z68.41 [place] [id number] [place] [address] 23479- 4889 Jul, [place] [id number] [place] [address] 94744- 4564 Jul, [place] [id number] [place] [address] 97352- 0329 Jun, [place] [id number] [place] [address] 25428- 4824 Jun, [place] [id number] [place] [address] 23070- 7269 Jun, Dysuria R30.0 ; Urinary tract infection, site not specified N39.0 ; Hematuria, unspecified R31.9 ; Sciatica of right side M54.31 ; Migraine with aura and without status migrainosus, not intractable G43.109 ; Primary insomnia F51.01 ; Essential hypertension I10 and Acquired hypothyroidism E03.9 [place] [id number] [place] [address] 95066- 9024 Jun, Bipolar 2 disorder F31.81 [place] [id number] [place] [address] 37122- 4615 Jun, Bipolar 2 disorder F31.81 [place] [id number] [place] [address] 81263- 4968 May, Sore throat J02.9 ; Acute serous otitis media of left ear, recurrence not specified H65.02 and Hypertension I10 [place] [id number] [place] [address] 93698- 1554 May, Bipolar 2 disorder F31.81 [place] [id number] [place] [address] 89019- 1643 Apr, [place] [id number] [place] [address] 71566- 3919 Apr, Bipolar 2 disorder F31.81 [place] [id number] [place] [address] 49273- 0295 Mar, [place] [id number] [place] [address] 48450- 9795 Feb, Bipolar 2 disorder F31.81 ; Attention deficit disorder F90.0 ; COLLEEN (generalized anxiety disorder) F41.1 and Panic disorder [episodic paroxysmal anxiety] without agoraphobia F41.0 [facility] [address], [place] [address] 1448 January, Bipolar 2 disorder F31.81 [facility] [id number] [place] [address] 24 Dec, 2016 [facility] [id number] [place] [address] 98670- 9228 Dec, [facility] [id number] [place] [address] 21747- 3214 Dec, [facility] [id number] [place] [address] 44212- 7554 Dec, Generalized anxiety disorder F41.1 ; Bipolar 2 disorder F31.81 and Panic disorder [episodic paroxysmal anxiety] without agoraphobia F41.0 [facility] [id number] [place] [address] 03123- 7918 Dec, [facility] [address], [place] [address]- 5151 Dec, [facility] [id number] [place] [address] 18743- 2200 Nov, [facility] [address] [address]- 1440 Nov, [facility] [address], [place] [address]- 8418 Nov, [facility] [address], [place] [address]- 3787 Oct, [facility] [address] [id number] 2957 Oct, [facility] [address], [place] [address]- 8946 Oct, [facility] [id number] [place] [address] 01896- 2591 Oct, [facility] [id number] [address]67 Oct, [facility] [id number] [place] [address] 910277- 5866 Sep, Bipolar 2 disorder F31.81 ; COLLEEN (generalized anxiety disorder) F41.1 ; Attention deficit disorder F90.0 and Panic disorder [episodic paroxysmal anxiety] without agoraphobia F41.0 [facility] [address] [id number] [address]- 8286 Sep, [facility] [id number] [place] [address], [place] [address]- 0406 Sep, [facility] [id number] [place] [address] 26001- 4141 Sep, [facility] [id number] [place] [address] 86620- 7544 Aug, [facility] [address], [place] [address]- 8498 Aug, [facility] [id number] [place] [address], [place] [address]- 5696 Aug, [facility] [address] 5407 Aug, [facility] [address], [place] [address]- 7861 Jul, [facility] [address], [place] [address] 2545 Jul, [facility] [address], [place] [address]- 4519 Jul, [facility] [address], [place] [address]- 2546 Jun, [facility] [address] 4417 13 Oct, 2016 Bipolar 2 disorder F31.81 ; Attention deficit disorder F90.0 ; COLLEEN (generalized anxiety disorder) F41.1 and Panic disorder [episodic paroxysmal anxiety] without agoraphobia F41.0 [facility] [id number] [place] [address] 19694- 2241 Jun, [facility] [id number] [place] [address] 17183- 5237 Jun, [facility] [address] 44818- 2411 Jun, Right foot pain M79.671 and Nausea and vomiting in adult R11.2 [facility] [address] 95925- 4047 May, [place] [address] 35871- 0909 May, Other sinusitis, unspecified chronicity J32.9 ; Environmental allergies Z91.09 ; Other chronic pain G89.29 and Sacrococcygeal disorders, not elsewhere classified M53.3 [facility] [id number] [place] [address] 39148 -7578 May, Acute non-recurrent pansinusitis J01.40 and Gastroenteritis K52.9 [facility] [id number] [place] [address] 32541- 4718 May, [facility] [address] 26457- 9282 May, [facility] [id number] [place] [address] 07896- 0756 Apr, Bronchitis J40 [facility] [address] 89963- 3457 Apr, [facility] [id number] [place] [address] 46448- 7764 Apr, [facility] [address] 58848- 6188 Apr, [facility] [address], [place] [address] -7859 Apr, Nausea and vomiting in adult R11.2 [facility] [id number] [place] [address] 26478- 5185 Apr, Nausea and vomiting in adult R11.2 [facility] [id number] [place] [address] 62295- 7436 Apr, Bipolar 2 disorder F31.81 ; Generalized anxiety disorder F41.1 ; Panic disorder [episodic paroxysmal anxiety] without agoraphobia F41.0 ; Attention deficit disorder F90.0 and COLLEEN (generalized anxiety disorder) F41.1 [facility] [id number] [place] [address] 50576- 8428 Apr, [facility] [id number] [place] [address] 80893- 5680 Mar, [facility] [id number] [place] [address] 31772- 8237 Mar, [facility] [id number] [place] [address] 54625- 5909 Mar, [facility] [id number] [place] [address] 10015- 2630 Mar, Bipolar 2 disorder F31.81 ; Attention deficit disorder F90.0 ; COLLEEN (generalized anxiety disorder) F41.1 and Panic disorder [episodic paroxysmal anxiety] without agoraphobia F41.0 [facility] [address], [place] [address]- 6639 Mar, [facility] [id number] [place] [address] 17466- 4355 Feb, Bipolar 2 disorder F31.81 ; Generalized anxiety disorder F41.1 and Attention deficit disorder F90.0 [facility] [id number] [place] [address] 42157- 5278 Feb, Generalized anxiety disorder F41.1 [facility] [address], [place] [address]- 6559 Feb, Generalized anxiety disorder F41.1 ; Attention deficit disorder F90.0 and Bipolar 2 disorder F31.81 [facility] [id number] [place] [address] 02699- 3046 Feb, Bipolar 2 disorder F31.81 ; Generalized anxiety disorder F41.1 ; Attention deficit disorder F90.0 and Insomnia, unspecified type G47.00 [facility] [id number] [place] [address] 89338- 6819 Feb, Excessive sweating R61 and Breast lump in upper outer quadrant N63 [facility] [id number] [place] [address] 69683 -6489 January, Low back pain M54.5 ; Other chronic pain G89.29 and Urinary tract infection, site unspecified N39.0 [facility] [id number] [place] [address] 10410- 6364 January, Bipolar II disorder F31.81 [facility] [id number] [place] [address] 25493- 8267 January, [facility] [id number] [place] [address] 03503- 9259 January, Insomnia, unspecified type G47.00 and Grief F43.20 [facility] [id number] [place] [address] 46445- 8572 January, [facility] [id number] [place] [address] 79451- 8055 Dec, [facility] [id number] [place] [address] 96004- 6750 Dec, [facility] [address] [place] [address] 90748- 6235 Dec, Bipolar 2 disorder F31.81 ; Generalized anxiety disorder F41.1 and Attention deficit disorder F90.0 [facility] [id number] [place] [address] 30198- 2422 Dec, Sinusitis J32.9 [facility] [address] 81221- 5578 14 Dec, 2015 Sinusitis J32.9 and Hypothyroid E03.9 [facility] [address] 99021- 6256 Dec, [facility] [address] 98781 -2424 Dec, Cough R05 and Allergic rhinitis J30.9 [place] [address] 41725- 4047 Nov, Hypertension I10 ; Obesity E66.9 and Acne L70.9 [place] [address] 67770- 4640 Nov, [facility] [address] 19120- 1669 Oct, [facility] [address] 86826- 1989 Oct, [facility] [id number] [place] [address] 02453- 2153 Oct, [facility] [id number] [place] [address] 65343- 1617 Oct, [facility] [id number] [place] [address] 51171- 9724 Sep, Lymphadenitis I88.9 ; Essential hypertension I10 and Acne, unspecified acne type L70.9 [facility] [address] 19364- 1304 Sep, [facility] [id number] [place] [address] 37429- 3396 Sep, [facility] [address] [place] [address]- 5818 Sep, [facility] [id number] [place] [address] 50236- 8514 Sep, Acquired hypothyroidism E03.9 [facility] [id number] [place] [address] 60307- 9456 Aug, Acquired hypothyroidism E03.9 [facility] [id number] [place] [address] 66239- 9568 Aug, Furuncle L02.92 [facility] [id number] [place] [address] 59555- 8918 Aug, [facility] [id number] [place] [address] 72124- 2957 Aug, Bipolar 2 disorder F31.81 ; Generalized anxiety disorder F41.1 ; Attention deficit disorder F90.0 and Obesity E66.9 [facility] [id number] [place] [address] 29633- 2699 Aug, [facility] [id number] [place] [address] 51799- 7619 Aug, [facility] [id number] [place] [address] 93374- 0869 Aug, Acquired hypothyroidism E03.9 [facility] [id number] [place] [address] 19320- 2910 Jul, Acquired hypothyroidism E03.9 ; Upper respiratory tract infection, unspecified type J06.9 and Nonintractable migraine, unspecified migraine type G43.009 [facility] [address] [place] [address] 89716- 2880 Jun, Acute pharyngitis, unspecified J02.9 [facility] [id number] [place] [address] 31872- 6090 24 May, 2015 Bipolar II disorder 296.89 ; Attention deficit disorder of childhood without mention of hyperactivity 314.00 ; Generalized anxiety disorder 300.02 and Morbid obesity with BMI of 45.0-49.9, adult 278.01 [facility] [address], [place] [address]- 7966 May, Sinusitis 473.9 [facility] [id number], [place] [address]- 5217 Apr, [facility] [id number] [place] [address] 20095- 3229 Mar, [facility] [id number] [place] [address] 59312- 0721 Mar, Bipolar II disorder 296.89 ; Generalized anxiety disorder 300.02 ; Obesity, unspecified 278.00 and Attention deficit disorder 314.00 [facility] [id number] [address]- 9576 Feb, [facility] [id number] [place] [address] 29119- 6413 January, [facility] [id number], [place] [address]- 1514 January, [facility] [id number] [place] [address] 49026- 8472 January, [facility] [id number], [place] [address]- 7356 January, [facility] [address], [place] [address]- 8783 Dec, [facility] [address], [place] [address]- 8096 Dec, [facility] [id number], [place] [address]- 2290 30 Nov, 2014 [facility] [id number] [place] [address] 68513- 3820 Nov, [facility] [address], [place] [address]- 7506 Nov, [facility] [place] [facility] [address] [id number] [place] [address]- 3273 11 Nov, 2014 [facility] [place] [facility] [address] [id number] [place] [address]- 2683 Nov, [facility] [place] [facility] [address] [id number] [place] [address]- 4053 Nov, [facility] [place] [facility] [address] [id number] [place] [address]- 8135 Nov, 2014 [facility] [place] [facility] [address] [id number] [place] [address]- 4939 Nov, [facility] [place] [facility] [address] [id number] [place] [address]- 9855 Nov, [facility] [place] [facility] [address] [id number] [place] [address]- 8449 Nov, [facility] [place] [facility] [address] [id number] [place] [address]- 2192 Nov, [facility] [place] [facility] [address] [id number] [place] [address] Nov, [facility] [place] [facility] [address] [id number] [place] [address] Nov, [facility] [place] [facility] [address] [id number] [place] [address] Nov, [facility] [place] [facility] [address] [id number] [place] [address] Oct, [facility] [place] [facility] [address] [id number] [place] [address] Oct, [facility] [place] [facility] [address] [id number] [place] [address] Oct, [facility] [place] [facility] [address] [id number] [place] [address] Oct, [facility] [place] [facility] [address] [id number] [place] [address] Oct, 2014 [facility] [place] [facility] [address] [id number] [place] [address] Oct, [facility] [place] [facility] [address] [id number] [place] [address] Oct, 2014 [facility] [place] [facility] [address] [id number] [place] [address] Oct, 2014 [facility] [place] [facility] [address] [id number] [place] [address] Oct, 2014 [facility] [place] [facility] [address] [id number] [place] [address] Oct, [facility] [place] [facility] [address] [id number] [place] [address] Oct, [facility] [place] [facility] [address] [id number] [place] [address] Oct, [facility] [place] [facility] [address] [id number], [place] [address] Sep, [facility] [place] [facility] [address] [id number] [place] [address] Sep, [facility] [place] [facility] [address] [facility] [id number], [place] [address] Sep, [facility] [place] [facility] [address] [id number] [place] [address] Sep, [facility] [place] [facility] [address] [id number], [place] [address] Sep, [facility] [place] [facility] [address] [id number], [place] [address] Sep, [facility] [place] [facility] [address] [id number], [place] [address] Sep, [facility] [place] [facility] [address] [id number], [place] [address] Sep, [facility] [place] [facility] [address] [id number] [place] [address] Aug, [facility] [place] [facility] [address] [id number] [place] [address] Aug, [facility] [place] [facility] [address] [id number] [place] [address] Aug, [facility] [place] [facility] [address] [id number] [place] [address]61 Aug, [facility] [place] [facility] [address] [id number] [place] [address] 5626 Aug, [facility] [place] [facility] [address] [id number] [place] [address]347 Aug, [facility] [place] [facility] [address] [id number] [place] [address] 6095 Aug, [facility] [place] [facility] [address] [id number] [place] [address] 3290 Aug, [facility] [place] [facility] [address] [id number] [place] [address] Aug, [facility] [place] [facility] [address] [id number] [place] [address] 1228 Aug, [facility] [place] [facility] [address] [id number] [place] [address] 1751 Aug, [facility] [place] [facility] [address] [id number] [place] [address] 5347 Aug, [facility] [place] [facility] [address] [id number] [place] [address]- 2878 Aug, [facility] [place] [facility] [address] [id number] [place] [address] Aug, [facility] [place] [facility] [address] [id number] [place] [address] 8925 Jul, [facility] [place] [facility] [address] [id number], [place] [address] Jul, [facility] [place] [facility] [address] [id number] [place] [address] 1453 Jul, [facility] [place] [facility] [address] [id number] [place] [address]- 6972 Jul, [facility] [place] [facility] [address] [id number] [place] [address]- 9880 Jul, [facility] [place] [facility] [address] [id number] [place] [address]- 0815 Jul, [facility] [place] [facility] [address] [id number] [place] [address]- 3698 Jul, [facility] [place] [facility] [address] [id number] [place] [address]- 8609 Jul, [facility] [place] [facility] [address] [id number] [place] [address]- 4450 Jul, [facility] [place] [facility] [address] [id number], [place] [address] Jul, [facility] [place] [facility] [address] [id number], [place] [address] 1735 Jul, [facility] [place] [facility] [address] [id number], [place] [address] 1756 Jul, [facility] [place] [facility] [address] [id number], [place] [address]- 47[address] 16 Jun, 2014 [facility] [place] [facility] [address] [id number], [place] [address]- [address] 16 Jun, 2014 [facility] [place] [facility] [address] [id number], [place] [address]- 7[address] 15 Jun, 2014 [facility] [place] [facility] [address] [id number], [place] [address]- 9263 14 Jun, 2014 [facility] [place] [facility] [address] [id number], [place] [address] 14 Jun, 2014 [facility] [place] [facility] [address] [id number] [place] [address]- 8421 14 Jun, 2014 [facility] [place] [facility] [address] [id number] [place] [address]- 2896 14 Jun, 2014 [facility] [place] [facility] [address] [id number] [place] [address]- 2525 13 Jun, 2014 [facility] [place] [facility] [address] [id number] [place] [address]- 2632 10 Jun, 2014 [facility] [place] [facility] [address] [id number] [place] [address]- 3382 10 Jun, 2014 [facility] [place] [facility] [address] [id number] [place] [address]- 6206 09 Jun, 2014 [facility] [place] [facility] [address] [id number] [place] [address]- 9301 09 Jun, 2014 [facility] [place] [facility] [address] [id number] [place] [address]- 4130 06 Jun, 2014 [facility] [place] [facility] [address] [id number] [place] [address]- 4820 06 Jun, 2014 [facility] [place] [facility] [address] [id number] [place] [address]- 9359 16 May, 2014 [facility] [place] [facility] [address] [id number] [place] [address]- 5126 15 May, 2014 [facility] [place] [facility] [address] [id number] [place] [address]- 2544 15 May, 2013 [facility] [place] [facility] [address] [id number] [place] [address]- 2547 15 May, 2013 [facility] [place] [facility] [address] [id number] [place] [address]- 2546 15 May, 2014 [facility] [place] [facility] [address] [id number] [place] [address]- 2542 15 May, 2013 [facility] [place] [facility] [address] [id number] [place] [address]- 5673 15 May, 2013 [facility] [place] [facility] [address] [id number] [place] [address]- 9894 12 May, 2013 [facility] [place] [facility] [address] [id number] [place] [address]- 5976 12 May, 2013 [facility] [place] [facility] [address] [id number] [place] [address]- 7019 10 May, 2013 [facility] [place] [facility] [address] [id number] [place] [address]- 7196 10 May, 2013 [facility] [place] [facility] [address] [id number] [place] [address]- 8934 02 May, 2013 [facility] [place] [facility] [address] [id number] [place] [address]- 9947 02 May, 2013 [facility] [place] [facility] [address] [id number] [place] [address]- 2515 May, 2013 [facility] [place] [facility] [address] [id number] [place] [address]- 5605 May, 2013 [facility] [place] [facility] [address] [id number] [place] [address]- 7167 Apr, [facility] [place] [facility] [address] [id number] [place] [address]- 4687 Apr, [facility] [place] [facility] [address] [id number] [place] [address]- 3011 Apr, [facility] [place] [facility] [address] [id number] [place] [address]- 6024 Apr, [facility] [place] [facility] [address] [id number] [place] [address]- 3995 Apr, [facility] [place] [facility] [address] [id number] [place] [address]- 8374 Apr, [facility] [place] [facility] [address] [id number] [place] [address]- 7686 Apr, [facility] [place] [facility] [address] [id number] [place] [address]- 3963 Apr, [facility] [place] [facility] [address] [id number] [place] [address]- 1788 Apr, [facility] [place] [facility] [address] [id number] [place] [address]- 2773 Mar, [facility] [place] [facility] [address] [id number] [place] [address]- 9280 Mar, [facility] [place] [facility] [address] [id number] [place] [address]- 3236 Mar, [facility] [place] [facility] [address] [id number] [place] [address]- 3925 Mar, [facility] [place] [facility] [address] [id number] [place] [address]- 3530 Mar, [facility] [place] [facility] [address] [id number] [place] [address]- 5902 Mar, [facility] [place] [facility] [address] [id number] [place] [address]- 6917 Mar, [facility] [place] [facility] [address] [id number] [place] [address]- 5307 Mar, [facility] [place] [facility] [address] [id number] [place] [address]- 6103 Mar, [facility] [place] [facility] [address] [id number] [place] [address]- 7952 Mar, [facility] [place] [facility] [address] [id number] [place] [address]- 2421 Mar, [facility] [place] [facility] [address] [id number] [place] [address]- 0076 Mar, [facility] [place] [facility] [address] [id number] [place] [address]- 8713 Mar, [facility] [place] [facility] [address] [id number] [place] [address]- 1787 Mar, [facility] [place] [facility] [address] [id number] [place] [address]- 1106 Mar, [facility] [place] [facility] [address] [id number] [place] [address]- 2423 Mar, [facility] [place] [facility] [address] [id number] [place] [address]- 8251 Mar, [facility] [place] [facility] [address] [id number] [place] [address]- 1174 Mar, [facility] [place] [facility] [address] [id number] [place] [address]- 2978 Feb, [facility] [place] [facility] [address] [id number] [place] [address]- 0787 Feb, [facility] [place] [facility] [address] [id number] [place] [address]- 1327 Feb, [facility] [place] [facility] [address] [id number] [place] [address]- 6821 Feb, [facility] [place] [facility] [address] [id number] [place] [address]- 3015 Feb, [facility] [place] [facility] [address] [id number] [place] [address]- 7091 Feb, [facility] [place] [facility] [address] [id number] [place] [address]- 5692 Feb, [facility] [place] [facility] [address] [id number] [place] [address]- 6640 Feb, [facility] [place] [facility] [address] [id number] [place] [address]- 8013 Feb, [facility] [place] [facility] [address] [id number] [place] [address]- 1458 Feb, [facility] [place] [facility] [address] [id number] [place] [address]- 0083 January, [facility] [place] [facility] [address] [id number] [place] [address]- 5346 January, [facility] [place] [facility] [address] [id number] [place] [address]- 1489 January, [facility] [place] [facility] [address] [id number] [place] [address]- 9097 January, [facility] [place] [facility] [address] [id number] [place] [address]- 9337 January, [facility] [place] [facility] [address] [id number] [place] [address]- 5212 January, [facility] [place] [facility] [address] [id number] [place] [address]- 4165 January, [facility] [place] [facility] [address] [id number] [place] [address]- 8696 January, [facility] [place] [facility] [address] [id number] [place] [address]- 9209 January, [facility] [place] [facility] [address] [id number] [place] [address]- 7719 January, [facility] [place] [facility] [address] [id number] [place] [address]- 1030 January, [facility] [place] [facility] [address] [id number] [place] [address]- 5902 January, [facility] [place] [facility] [address] [id number] [place] [address]- 4886 January, [facility] [place] [facility] [address] [id number] [place] [address]- 3155 January, [facility] [place] [facility] [address] [id number] [place] [address]- 5148 January, [facility] [place] [facility] [address] [id number] [place] [address]- 4150 Dec, [facility] [place] [facility] [address] [id number] [place] [address]- 8992 Dec, [facility] [place] [facility] [address] [id number] [place] [address]- 9427 08 Dec, 2013 [facility] [place] [facility] [address] [id number] [place] [address]- 8806 Dec, [facility] [place] [facility] [address] [id number] [place] [address]- 8623 Dec, [facility] [place] [facility] [address] [id number] [place] [address]- 0728 Dec, [facility] [place] [facility] [address] [id number] [place] [address]- 5258 Nov, [facility] [place] [facility] [address] [id number] [place] [address]- 4621 Nov, [facility] [place] [facility] [address] [facility] [id number] [place] [address]- 8957 Nov, [facility] [place] [facility] [address] [id number] [place] [address]- 4121 Nov, [facility] [place] [facility] [address] [facility] [id number] [place] [address]- 7115 Nov, [facility] [place] [facility] [address] [id number] [place] [address]- 3943 Oct, [facility] [place] [facility] [address] [facility] [id number] [place] [address]- 5402 Oct, [facility] [place] [facility] [address] [facility] [id number] [place] [address]- 8299 Oct, [facility] [place] [facility] [address] [facility] [id number] [place] [address]- 5744 Oct, [facility] [place] [facility] [address] [id number] [place] [address]- 9826 10 Oct, 2013 [facility] [place] [facility] [address] [facility] [id number] [place] [address]- 4380 06 Oct, 2013 [facility] [place] [facility] [address] [facility] [id number] [place] [address]- 8974 Oct, [facility] [place] [facility] [address] [id number] [place] [address]- 1441 Oct, [facility] [place] [facility] [address] [id number] [place] [address]- 6799 Oct, [facility] [place] [facility] [address] [id number] [place] [address] Oct, [facility] [place] [facility] [address] [id number] [place] [address]- 3577 Oct, [facility] [place] [facility] [address] [id number] [place] [address]- 3791 Sep, [facility] [place] [facility] [address] [id number] [place] [address]- 5735 Sep, [facility] [place] [facility] [address] [id number] [place] [address]- 7339 Sep, [facility] [place] [facility] [address] [id number] [place] [address]- 6539 Sep, [facility] [place] [facility] [address] [id number] [place] [address]- 3802 Aug, [facility] [place] [facility] [address] [id number] [place] [address]- 9666 Aug, [facility] [place] [facility] [address] [id number] [place] [address]- 6001 Jul, [facility] [place] [facility] [address] [id number] [place] [address]- 4732 Jul, [facility] [place] [facility] [address] [id number] [place] [address]- 8807 Jul, [facility] [place] [facility] [address] [id number] [place] [address]- 5695 Jul, [facility] [place] [facility] [address] [id number] [place] [address]- 5181 Jul, [facility] [place] [facility] [address] [id number] [place] [address]- 0074 Jun, [facility] [address] [id number] [place] [address]- 4036 Jun, [facility] [address] [id number] [place] [address]- 0114 May, [facility] [address] [id number] [place] [address]- 5328 Mar, [facility] [address] [id number] [place] [address]- 8462 Mar, [facility] [address] [id number] [place] [address]- 5148 Mar, [facility] [address] [id number] [place] [address]- 2218 Feb, [facility] [address] [id number] [place] [address]- 8270 January, [facility] [address] [id number] [place] [address]- 1898 Dec, [facility] [address] [id number] [place] [address]- 1169 Nov, [facility] [address] [id number] [place] [address]- 4469 Nov, [facility] [address] [id number] [place] [address]- 8427 Nov, [facility] [address] [id number] [place] [address]- 7124 Oct, [facility] [address] [id number] [place] [address]- 8206 Oct, [facility] [address] [id number] [place] [address]- 2546 Oct, [facility] [address] [id number] [place] [address]- 5502 Oct, [facility] [address] [facility] [id number] [place] [address]- 9299 Sep, IMMUNIZATIONS No Known Immunizations SOCIAL HISTORY [...]
--- OUTSIDE RECORDS SUMMARY | 2018-09-23 22:11 | XMS REPORT ---
Author Author [facility] Address [address] [place] [address] Care Team Providers Care Autocad Draftsman Name Role Phone TEE CALLE Unavailable PROBLEMS Type Condition ICD9-CM Code UHE81-IR Code Onset Dates Condition Status SNOMED Code Problem Essential hypertension I10 Active 25319973 Problem Primary insomnia F51.01 Active 9443295 Problem Acquired hypothyroidism E03.9 Active 263395253 Problem Hypothyroidism (acquired) E03.9 Active 412384359 Problem Arthritis M19.90 Active 2940407 Problem Sciatica of right side M54.31 Active 20187762 Problem Migraine with aura and without status migrainosus, not intractable G43.109 Active 9963082 Problem Attention-deficit hyperactivity disorder, predominantly inattentive type F90.0 Active 47713275 Problem Current nonadherence to medical treatment Z91.19 Active 9291469 Problem LGSIL on Pap smear of cervix R87.612 Active 507561828 Problem Postoperative hypothyroidism E89.0 Active 05073740 Problem Generalized anxiety disorder F41.1 Active 84846341 Problem Bipolar 2 disorder F31.81 Active 23105099 Problem Abnormal liver function K76.89 Active 46656774 Problem Acne L70.9 Active 95324106 Problem Obesity E66.9 Active 281899797 Problem Panic disorder [episodic paroxysmal anxiety] without agoraphobia F41.0 Active 23875442 ALLERGIES No Information ENCOUNTERS Encounter Location Date Diagnosis [facility] [address] [facility] [id number] [address] May, [facility] [address] [address] Apr, [facility] [id number] [address] 64[address] Apr, Generalized anxiety disorder F41.1 ; Arthritis M19.90 ; Hypothyroidism (acquired) E03.9 and Lymph node enlargement R59.9 [facility] [id number] [place] [address] 26161- 8583 13 Apr, 2018 Arthritis M19.90 and Sciatica of right side M54.31 [facility] [id number] [place] [address] 93464- 9213 Mar, Arthritis M19.90 ; Hypothyroidism (acquired) E03.9 and Lymph node enlargement R59.9 [facility] [id number] [place] [address] 57711- 0763 10 Mar, 2018 Well woman exam with routine gynecological exam Z01.419 ; control counseling Z30.09 ; Acquired hypothyroidism E03.9 ; Sciatica of right side M54.31 ; Breast tenderness N64.4 and Generalized anxiety disorder F41.1 [facility] [id number] [place] [address] 42717- 6921 Mar, [facility] [address] 14887- 5132 Feb, Bipolar 2 disorder F31.81 ; Generalized anxiety disorder F41.1 ; Attention-deficit hyperactivity disorder, predominantly inattentive type F90.0 and Current nonadherence to medical treatment Z91.19 [facility] [id number] [place] [address] 54562- 2038 07 Feb, 2018 [facility] [id number] [place] [address] 97761- 4175 Nov, Normal physical exam Z00.00 and Enlarged lymph node R59.9 [facility] [id number] [place] [address] 97347- 9021 Nov, Enlarged lymph node R59.9 ; Abnormal liver function K76.89 and Hypothyroid E03.9 [facility] [id number] [place] [address] 47529- 9545 Oct, Bipolar 2 disorder F31.81 [facility] [id number] [place] [address] 51098- 4562 Oct, Sciatica of right side M54.31 and Essential hypertension I10 [facility] [address] [place] [address] 53729- 3585 Oct, [facility] [id number] [place] [address] 91773- 4046 Aug, Hypothyroid E03.9 [facility] [id number] [place] [address] 28146- 4997 Aug, [facility] [id number] [place] [address] 94719- 8635 Aug, Bipolar 2 disorder F31.81 [facility] [id number] [place] [address] 64153- 7608 Aug, Abnormal liver function K76.89 [facility] [id number] [place] [address] 89311- 2418 Jul, Bipolar 2 disorder F31.81 [facility] [id number] [place] [address] 91349 -2846 Jul, [facility] [id number] [place] [address] 94503- 7144 Jul, Bipolar 2 disorder F31.81 ; Generalized anxiety disorder F41.1 ; Attention-deficit hyperactivity disorder, predominantly inattentive type F90.0 and Current nonadherence to medical treatment Z91.19 [facility] [id number] [place] [address] 94691 -2361 Jul, Essential hypertension I10 ; Other viral agents as the cause of diseases classified elsewhere B97.89 ; Acute upper respiratory infection, unspecified J06.9 and BMI 40.0-44.9, adult Z68.41 [facility] [id number] [place] [address] 50550- 2947 Jul, [facility] [id number] [place] [address] 72157- 1010 Jul, [facility] [address] [place] [address] 0913 Jun, [facility] [id number] [place] [address] 62545- 9228 Jun, [facility] [id number] [place] [address] 92432- 4477 Jun, Dysuria R30.0 ; Urinary tract infection, site not specified N39.0 ; Hematuria, unspecified R31.9 ; Sciatica of right side M54.31 ; Migraine with aura and without status migrainosus, not intractable G43.109 ; Primary insomnia F51.01 ; Essential hypertension I10 and Acquired hypothyroidism E03.9 [facility] [address] 89964- 5011 Jun, Bipolar 2 disorder F31.81 [facility] [address] 32581- 4215 Jun, Bipolar 2 disorder F31.81 [facility] [address] 10095- 8078 May, Sore throat J02.9 ; Acute serous otitis media of left ear, recurrence not specified H65.02 and Hypertension I10 [facility] [id number] [place] [address] 16973- 4883 May, Bipolar 2 disorder F31.81 [facility] [id number] [place] [address] 48672- 3341 Apr, [facility] [id number] [place] [address] 36431- 2492 Apr, Bipolar 2 disorder F31.81 [facility] [address] 54884- 0839 Mar, [facility] [address] 17429- 6430 Feb, Bipolar 2 disorder F31.81 ; Attention deficit disorder F90.0 ; COLLEEN (generalized anxiety disorder) F41.1 and Panic disorder [episodic paroxysmal anxiety] without agoraphobia F41.0 [facility] [address] [address] January, Bipolar 2 disorder F31.81 [facility] [address], [place] [address]- 4782 24 Dec, 2016 [facility] [id number] [place] [address] 51623- 4143 Dec, [facility] [address] [id number], [place] [address] 9215 Dec, [facility] [id number] [place] [address] 27529- 2298 Dec, Generalized anxiety disorder F41.1 ; Bipolar 2 disorder F31.81 and Panic disorder [episodic paroxysmal anxiety] without agoraphobia F41.0 [facility] [address], [place] [address]- 3744 Dec, [facility] [address], [place] [address]- 7435 Dec, [facility] [address], [place] [address]- 1379 Nov, [facility] [address], [place] [address]- 8713 Nov, [facility] [address], [place] [address]- 3527 Nov, [facility] [address], [place] [address]- 5845 Oct, [facility] [address], [place] [address]- 5319 Oct, [facility] [address], [place] [address]- 2020 Oct, [facility] [address], [place] [address]- 8002 Oct, [facility] [address], [place] [address]- 6069 Oct, [facility] [id number] [place] [address] 396067- 3896 Sep, Bipolar 2 disorder F31.81 ; COLLEEN (generalized anxiety disorder) F41.1 ; Attention deficit disorder F90.0 and Panic disorder [episodic paroxysmal anxiety] without agoraphobia F41.0 [facility] [id number] [place] [address] 95373- 1211 Sep, [facility] [id number] [place] [address] 52717- 0736 Sep, [facility] [id number] [place] [address] 93244- 9168 Sep, [facility] [id number] [place] [address] 81952- 1643 Aug, [facility] [id number] [place] [address] 80175- 3028 Aug, [facility] [id number] [place] [address] 505230- 3558 Aug, [facility] [id number] 3309 Aug, [facility] [address] [place] [address] 66807- 7338 Jul, [facility] [address], [place] [address]- 5606 Jul, [facility] [id number] [place] [address] 21749- 5310 Jul, [facility] [id number] [place] [address] 25963- 0676 Jun, [facility] [address] 1636 Jun, Bipolar 2 disorder F31.81 ; Attention deficit disorder F90.0 ; COLLEEN (generalized anxiety disorder) F41.1 and Panic disorder [episodic paroxysmal anxiety] without agoraphobia F41.0 [facility] [id number] [place] [address] 89759- 8496 Jun, [facility] [address] 70261- 5294 Jun, [facility] [address] 87756- 0536 Jun, Right foot pain M79.671 and Nausea and vomiting in adult R11.2 [facility] [address] 84363- 3073 May, [facility] [address] 65712- 2298 May, Other sinusitis, unspecified chronicity J32.9 ; Environmental allergies Z91.09 ; Other chronic pain G89.29 and Sacrococcygeal disorders, not elsewhere classified M53.3 [facility] [id number] [place] [address] 17868 -7720 May, Acute non-recurrent pansinusitis J01.40 and Gastroenteritis K52.9 [facility] [id number] [place] [address] 74051- 5355 May, [facility] [address] 76378- 5630 May, [facility] [address] 12640- 5853 Apr, Bronchitis J40 [facility] [address] 72568- 6549 Apr, [facility] [address] 39347- 9265 Apr, [facility] [address] 10227- 1552 Apr, [facility] [address], [place] [address] -[address]65 Apr, Nausea and vomiting in adult R11.2 [facility] [address], [place] [address]- 9005 Apr, Nausea and vomiting in adult R11.2 [facility] [address] [place] [address] 86865- 6156 Apr, Bipolar 2 disorder F31.81 ; Generalized anxiety disorder F41.1 ; Panic disorder [episodic paroxysmal anxiety] without agoraphobia F41.0 ; Attention deficit disorder F90.0 and COLLEEN (generalized anxiety disorder) F41.1 [facility] [address] [place] [address] 97017- 7118 Apr, [facility] [id number] [place] [address] 87027- 3939 Mar, [facility] [id number] [place] [address] 93334- 8737 Mar, [facility] [address] [place] [address] 61882- 8821 Mar, [facility] [id number] [place] [address] 23596- 3089 Mar, Bipolar 2 disorder F31.81 ; Attention deficit disorder F90.0 ; COLLEEN (generalized anxiety disorder) F41.1 and Panic disorder [episodic paroxysmal anxiety] without agoraphobia F41.0 [facility] [address], [place] [address]- 3801 Mar, [facility] [address] [place] [address] 05647- 3798 Feb, Bipolar 2 disorder F31.81 ; Generalized anxiety disorder F41.1 and Attention deficit disorder F90.0 [facility] [address], [place] [address]- 4246 Feb, Generalized anxiety disorder F41.1 [facility] [address], [place] [address]- 0541 Feb, Generalized anxiety disorder F41.1 ; Attention deficit disorder F90.0 and Bipolar 2 disorder F31.81 [facility] [id number] [place] [address] 50308- 7238 Feb, Bipolar 2 disorder F31.81 ; Generalized anxiety disorder F41.1 ; Attention deficit disorder F90.0 and Insomnia, unspecified type G47.00 [facility] [id number] [place] [address] 79924- 2228 Feb, Excessive sweating R61 and Breast lump in upper outer quadrant N63 [facility] [id number] [place] [address] 30039 -2873 January, Low back pain M54.5 ; Other chronic pain G89.29 and Urinary tract infection, site unspecified N39.0 [facility] [id number] [place] [address] 57760- 5926 January, Bipolar II disorder F31.81 [facility] [id number] [place] [address] 05964- 1675 January, [place] [id number] [place] [address] 10176- 2479 January, Insomnia, unspecified type G47.00 and Grief F43.20 [facility] [id number] [place] [address] 78307- 2689 January, [facility] [address] [place] [address] 21852- 5279 Dec, [facility] [id number] [place] [address] 50753- 3210 Dec, [facility] [id number] [place] [address] 54503- 8955 Dec, Bipolar 2 disorder F31.81 ; Generalized anxiety disorder F41.1 and Attention deficit disorder F90.0 [facility] [address] 95134- 2176 Dec, Sinusitis J32.9 [facility] [address] 09619- 9459 14 Dec, 2015 Sinusitis J32.9 and Hypothyroid E03.9 [facility] [address] 90206- 9454 Dec, [facility] [address] 71497 -2777 Dec, Cough R05 and Allergic rhinitis J30.9 [facility] [address] 08699- 0369 Nov, Hypertension I10 ; Obesity E66.9 and Acne L70.9 [facility] [address] 52475- 6352 Nov, [facility] [address] 69898- 6651 Oct, [facility] [address] 08765- 1113 Oct, [facility] [address] 15712- 7796 Oct, [facility] [address] 64924- 6258 Oct, [facility] [address] 49138- 1306 Sep, Lymphadenitis I88.9 ; Essential hypertension I10 and Acne, unspecified acne type L70.9 [facility] [address] 17519- 4398 Sep, [facility] [id number] [place] [address] 01616- 3061 Sep, [facility] [address] 51348- 6780 Sep, [facility] [address] [place] [address] 48618- 8930 Sep, Acquired hypothyroidism E03.9 [facility] [address] [place] [address] 78585158- 9560 Aug, Acquired hypothyroidism E03.9 [facility] [id number] [place] [address] 00041- 1141 Aug, Furuncle L02.92 [facility] [id number] [place] [address] 74217- 4003 Aug, [facility] [id number] [place] [address] 34122- 2263 Aug, Bipolar 2 disorder F31.81 ; Generalized anxiety disorder F41.1 ; Attention deficit disorder F90.0 and Obesity E66.9 [facility] [id number] [place] [address] 09272- 2858 Aug, [facility] [id number] [place] [address] 32044- 0425 Aug, [facility] [id number] [place] [address] 55958- 3463 Aug, Acquired hypothyroidism E03.9 [facility] [address] [place] [address] 05232- 8520 Jul, Acquired hypothyroidism E03.9 ; Upper respiratory tract infection, unspecified type J06.9 and Nonintractable migraine, unspecified migraine type G43.009 [facility] [address], [place] [address]- 7989 Jun, Acute pharyngitis, unspecified J02.9 [facility] [address] [address]- 9489 24 May, 2015 Bipolar II disorder 296.89 ; Attention deficit disorder of childhood without mention of hyperactivity 314.00 ; Generalized anxiety disorder 300.02 and Morbid obesity with BMI of 45.0-49.9, adult 278.01 [facility] [address], [place] [address]- 9810 May, Sinusitis 473.9 [facility] [address], [place] [address]- 8029 Apr, [facility] [address], [place] [address]- 1080 Mar, [facility] [id number] [place] [address] 17569- 4066 Mar, Bipolar II disorder 296.89 ; Generalized anxiety disorder 300.02 ; Obesity, unspecified 278.00 and Attention deficit disorder 314.00 [facility] [address] [address]- 1599 Feb, [facility] [address], [place] [address]- 6962 January, [facility] [address], [place] [address]- 4431 January, [facility] [address], [place] [address]- 8518 January, [facility] [address] 4002 January, [facility] [address], [place] [address]- 3881 Dec, [facility] [address], [place] [address]- 4721 Dec, [facility] [address], [place] [address]- 3210 Nov, [facility] [address], [place] [address]- 1459 Nov, [facility] [address], [place] [address]- 8024 Nov, [facility] [id number] [place] [address]- 7908 11 Nov, 2014 [facility] [place] [facility] [address] [id number] [place] [address]- 6979 11 Nov, 2014 [facility] [place] [facility] [address] [id number] [place] [address]- 7175 Nov, [facility] [place] [facility] [address] [id number] [place] [address]- 6193 Nov, [facility] [place] [facility] [address] [id number] [place] [address]- 5201 Nov, [facility] [place] [facility] [address] [id number] [place] [address]- 6536 Nov, [facility] [place] [facility] [address] [id number] [place] [address]- 3254 Nov, [facility] [place] [facility] [address] [id number] [place] [address]- 0986 Nov, [facility] [place] [facility] [address] [id number] [place] [address]- 7294 Nov, [facility] [place] [facility] [address] [id number] [place] [address]- 7609 Nov, [facility] [place] [facility] [address] [id number] [place] [address]- 0073 Nov, [facility] [place] [facility] [address] [id number] [place] [address]- 3598 Oct, 2014 [facility] [place] [facility] [address] [id number] [place] [address]- 0196 Oct, [facility] [place] [facility] [address] [id number] [place] [address]- 2542 Oct, [facility] [place] [facility] [address] [id number] [place] [address]- 7540 Oct, [facility] [place] [facility] [address] [id number] [place] [address]- 9822 Oct, 2014 [facility] [place] [facility] [address] [id number] [place] [address]- 7915 Oct, [facility] [place] [facility] [address] [id number] [place] [address]- 1241 Oct, 2014 [facility] [place] [facility] [address] [facility] [id number] [place] [address]- 5028 Oct, 2014 [facility] [place] [facility] [address] [id number] [place] [address]- 3287 Oct, 2014 [facility] [place] [facility] [address] [id number] [place] [address] Oct, [facility] [place] [facility] [address] [facility] [id number] [place] [address] Oct, [facility] [place] [facility] [address] [facility] [id number] [place] [address] Oct, [facility] [place] [facility] [address] [facility] [id number] [place] [address] Sep, [facility] [place] [facility] [address] [facility] [id number] [place] [address] Sep, [facility] [place] [facility] [address] [facility] [id number] [place] [address] Sep, [facility] [place] [facility] [address] [facility] [id number], [place] [address] Sep, [facility] [place] [facility] [address] [facility] [id number], [place] [address] Sep, [facility] [place] [facility] [address] [facility] [id number], [place] [address] Sep, [facility] [place] [facility] [address] [facility] [id number], [place] [address] Sep, [facility] [place] [facility] [address] [facility] [id number] [place] [address] Sep, [facility] [place] [facility] [address] [id number] [place] [address] Aug, [facility] [place] [facility] [address] [id number] [place] [address] Aug, [facility] [place] [facility] [address] [id number] [place] [address] Aug, [facility] [place] [facility] [address] [id number] [place] [address] Aug, [facility] [place] [facility] [address] [id number] [place] [address] Aug, [facility] [place] [facility] [address] [id number] [place] [address] Aug, [facility] [place] [facility] [address] [id number] [place] [address] Aug, [facility] [place] [facility] [address] [id number] [place] [address] Aug, [facility] [place] [facility] [address] [id number] [place] [address] Aug, [facility] [place] [facility] [address] [id number] [place] [address] Aug, [facility] [place] [facility] [address] [id number] [place] [address] Aug, [facility] [place] [facility] [address] [id number] [place] [address] Aug, [facility] [place] [facility] [address] [id number] [place] [address] Aug, [facility] [place] [facility] [address] [id number] [place] [address] Aug, [facility] [place] [facility] [address] [id number] [place] [address] Jul, [facility] [place] [facility] [address] [id number] [place] [address]782 Jul, [facility] [place] [facility] [address] [id number] [place] [address] Jul, [facility] [place] [facility] [address] [id number] [place] [address] 3988 Jul, [facility] [place] [facility] [address] [id number] [place] [address] 0851 Jul, [facility] [place] [facility] [address] [id number] [place] [address]148 Jul, [facility] [place] [facility] [address] [id number] [place] [address] 3890 Jul, [facility] [place] [facility] [address] [id number] [place] [address]32 Jul, [facility] [place] [facility] [address] [id number] [place] [address] 6[address] Jul, [facility] [place] [facility] [address] [id number] [place] [address] 4887 Jul, [facility] [place] [facility] [address] [id number] [place] [address] 7779 Jul, [facility] [place] [facility] [address] [id number], [place] [address] Jul, [facility] [place] [facility] [address] [id number], [place] [address] 16 Jun, 2014 [facility] [place] [facility] [address] [id number], [place] [address] 16 Jun, 2014 [facility] [place] [facility] [address] [id number] [place] [address]- 0477 15 Jun, 2014 [facility] [place] [facility] [address] [id number], [place] [address] 14 Jun, 2014 [facility] [place] [facility] [address] [id number], [place] [address] 9099 14 Jun, 2014 [facility] [place] [facility] [address] [id number] [place] [address]- 2305 14 Jun, 2014 [facility] [place] [facility] [address] [id number] [place] [address]- 6511 14 Jun, 2014 [facility] [place] [facility] [address] [id number] [place] [address]- 4619 13 Jun, 2014 [facility] [place] [facility] [address] [id number] [place] [address]- 6412 10 Jun, 2014 [facility] [place] [facility] [address] [id number] [place] [address]- 2664 10 Jun, 2014 [facility] [place] [facility] [address] [id number] [place] [address]- 4753 09 Jun, 2014 [facility] [place] [facility] [address] [id number] [place] [address]- 4378 09 Jun, 2014 [facility] [place] [facility] [address] [id number] [place] [address]- 3757 06 Jun, 2014 [facility] [place] [facility] [address] [id number] [place] [address]- 8469 06 Jun, 2014 [facility] [place] [facility] [address] [id number] [place] [address]- 8257 16 May, 2014 [facility] [place] [facility] [address] [id number] [place] [address]- 7004 15 May, 2013 [facility] [place] [facility] [address] [id number] [place] [address]- 7874 15 May, 2013 [facility] [place] [facility] [address] [id number], [place] [address] 15 May, 2013 [facility] [place] [facility] [address] [id number] [place] [address]- 6456 15 May, 2014 [facility] [place] [facility] [address] [id number] [place] [address]- 2546 15 May, 2013 [facility] [place] [facility] [address] [id number], [place] [address] 1281 15 May, 2013 [facility] [place] [facility] [address] [id number] [place] [address]- 1216 12 May, 2013 [facility] [place] [facility] [address] [id number] [place] [address]- 8563 12 May, 2013 [facility] [place] [facility] [address] [id number] [place] [address]- 7015 10 May, 2013 [facility] [place] [facility] [address] [id number] [place] [address]- 4715 10 May, 2013 [facility] [place] [facility] [address] [id number] [place] [address]- 6755 May, 2013 [facility] [place] [facility] [address] [id number] [place] [address]- 7492 May, 2013 [facility] [place] [facility] [address] [id number] [place] [address]- 3867 May, 2013 [facility] [place] [facility] [address] [id number] [place] [address]- 8894 May, 2013 [facility] [place] [facility] [address] [id number] [place] [address]- 3196 Apr, [facility] [place] [facility] [address] [id number] [place] [address]- 5697 Apr, [facility] [place] [facility] [address] [id number] [place] [address]- 5783 Apr, [facility] [place] [facility] [address] [id number] [place] [address]- 6548 Apr, [facility] [place] [facility] [address] [id number] [place] [address]- 0308 Apr, [facility] [place] [facility] [address] [id number] [place] [address]- 0294 Apr, [facility] [place] [facility] [address] [id number] [place] [address]- 6268 Apr, [facility] [place] [facility] [address] [id number] [place] [address]- 0286 Apr, [facility] [place] [facility] [address] [id number] [place] [address]- 8684 Apr, [facility] [place] [facility] [address] [id number] [place] [address] 3114 Mar, [facility] [place] [facility] [address] [id number] [place] [address]- 4724 Mar, [facility] [place] [facility] [address] [id number] [place] [address]- 2517 Mar, [facility] [place] [facility] [address] [id number] [place] [address]- 3857 Mar, [facility] [place] [facility] [address] [id number] [place] [address]- 1479 Mar, [facility] [place] [facility] [address] [id number] [place] [address]- 5692 Mar, [facility] [place] [facility] [address] [id number] [place] [address]- 9529 Mar, [facility] [place] [facility] [address] [id number] [place] [address]- 5358 Mar, [facility] [place] [facility] [address] [id number] [place] [address]- 4081 Mar, [facility] [place] [facility] [address] [id number] [place] [address]- 2986 Mar, [facility] [place] [facility] [address] [id number] [place] [address]- 5117 Mar, [facility] [place] [facility] [address] [id number] [place] [address] 8071 Mar, [facility] [place] [facility] [address] [id number] [place] [address]- 7368 Mar, [facility] [place] [facility] [address] [id number] [place] [address]- 9289 Mar, [facility] [place] [facility] [address] [id number] [place] [address]- 6374 Mar, [facility] [place] [facility] [address] [id number] [place] [address]- 5341 Mar, [facility] [place] [facility] [address] [id number] [place] [address]- 0056 Mar, [facility] [place] [facility] [address] [id number] [place] [address]- 4571 Mar, [facility] [place] [facility] [address] [id number] [place] [address]- 6009 Feb, [facility] [place] [facility] [address] [id number] [place] [address]- 2113 Feb, [facility] [place] [facility] [address] [id number] [place] [address]- 5214 Feb, [facility] [place] [facility] [address] [id number] [place] [address]- 5708 Feb, [facility] [place] [facility] [address] [id number] [place] [address]- 1477 Feb, [facility] [place] [facility] [address] [id number] [place] [address]- 6958 Feb, [facility] [place] [facility] [address] [id number] [place] [address]- 3762 Feb, [facility] [place] [facility] [address] [id number] [place] [address]- 4937 Feb, [facility] [place] [facility] [address] [id number] [place] [address]- 9222 Feb, [facility] [place] [facility] [address] [id number] [place] [address]- 4386 Feb, [facility] [place] [facility] [address] [id number] [place] [address]- 9795 January, [facility] [place] [facility] [address] [id number] [place] [address]- 6649 January, [facility] [address] [id number] [place] [address]- 8722 January, [facility] [place] [facility] [address] [id number] [place] [address]- 1546 January, [facility] [place] [facility] [address] [id number] [place] [address]- 3008 January, [facility] [place] [facility] [address] [id number] [place] [address]- 0776 January, [facility] [place] [facility] [address] [id number] [place] [address]- 5891 January, [facility] [place] [facility] [address] [id number] [place] [address]- 0797 January, [facility] [place] [facility] [address] [id number] [place] [address]- 7155 January, [facility] [place] [facility] [address] [id number] [place] [address]- 4547 January, [facility] [place] [facility] [address] [id number] [place] [address]- 0110 January, [facility] [place] [facility] [address] [id number] [place] [address]- 0545 January, [facility] [place] [facility] [address] [id number] [place] [address]- 9378 January, [facility] [place] [facility] [address] [id number] [place] [address]- 7751 January, [facility] [place] [facility] [address] [id number] [place] [address]- 7935 January, [facility] [place] [facility] [address] [id number] [place] [address]- 2400 Dec, [facility] [place] [facility] [address] [id number] [place] [address]- 3362 Dec, [facility] [place] [facility] [address] [id number] [place] [address]- 2284 Dec, [facility] [place] [facility] [address] [id number] [place] [address]- 5268 Dec, [facility] [place] [facility] [address] [id number] [place] [address]- 1821 Dec, [facility] [place] [facility] [address] [facility] [id number] [place] [address]- 0361 Dec, [facility] [place] [facility] [address] [id number] [place] [address]- 2155 Nov, [facility] [place] [facility] [address] [id number] [place] [address]- 9632 Nov, [facility] [place] [facility] [address] [facility] [id number] [place] [address]- 0494 Nov, [facility] [place] [facility] [address] [facility] [id number] [place] [address]- 8086 Nov, [facility] [place] [facility] [address] [facility] [id number] [place] [address]- 4800 Nov, [facility] [place] [facility] [address] [facility] [id number] [place] [address]- 9270 Oct, [facility] [place] [facility] [address] [facility] [id number] [place] [address]- 6777 Oct, [facility] [place] [facility] [address] [facility] [id number] [place] [address]- 1708 Oct, [facility] [place] [facility] [address] [facility] [id number] [place] [address]- 1353 Oct, [facility] [place] [facility] [address] [id number] [place] [address]- 9155 Oct, [facility] [place] [facility] [address] [facility] [id number] [place] [address]- 7146 Oct, [facility] [place] [facility] [address] [facility] [id number] [place] [address]- 7625 Oct, [facility] [place] [facility] [address] [id number] [place] [address]- 3322 Oct, [facility] [place] [facility] [address] [id number] [place] [address]- 9895 Oct, [facility] [place] [facility] [address] [id number] [place] [address]- 9872 Oct, [facility] [place] [facility] [address] [id number] [place] [address]- 2793 Oct, [facility] [place] [facility] [address] [id number] [place] [address]- 6052 Sep, [facility] [place] [facility] [address] [id number] [place] [address]- 9988 Sep, [facility] [place] [facility] [address] [id number] [place] [address]- 4475 Sep, [facility] [place] [facility] [address] [id number] [place] [address]- 8750 Sep, [facility] [place] [facility] [address] [id number] [place] [address]- 4612 Aug, [facility] [place] [facility] [address] [id number] [place] [address]- 6682 Aug, [facility] [place] [facility] [address] [id number] [place] [address]- 5656 Jul, [facility] [place] [facility] [address] [id number], [place] [address]- 5926 Jul, [facility] [place] [facility] [address] [id number] [place] [address]- 6181 Jul, [facility] [place] [facility] [address] [id number] [place] [address]- 5412 Jul, [facility] [place] [facility] [address] [id number] [place] [address]- 9988 Jul, [facility] [place] [facility] [address] [id number] [place] [address]- 6204 Jun, [facility] [address] [id number] [place] [address]- 3380 Jun, [facility] [place] [facility] [address] [id number] [place] [address]- 7071 May, [facility] [address] [id number] [place] [address]- 2305 Mar, [facility] [place] [facility] [address] [id number] [place] [address]- 0034 Mar, [facility] [address] [id number] [place] [address]- 6337 Mar, [facility] [place] [facility] [address] [id number] [place] [address]- 2367 Feb, [facility] [address] [id number] [place] [address]- 4338 January, [facility] [address] [id number] [place] [address]- 8100 Dec, [facility] [address] [id number] [place] [address]- 6888 Nov, [facility] [place] [facility] [address] [facility] [id number] [place] [address]- 5787 Nov, [facility] [place] [facility] [address] [id number] [place] [address]- 7556 Nov, [facility] [place] [facility] [address] [id number] [place] [address]- 8124 Oct, [facility] [place] [facility] [address] [id number] [place] [address]- 6630 Oct, [facility] [place] [facility] [address] [id number] [place] [address]- 6426 Oct, [facility] [place] [facility] [address] [id number] [place] [address]- 4376 Oct, [facility] [address] [facility] [id number] [place] [address]- 2973 Sep, IMMUNIZATIONS No Known Immunizations SOCIAL HISTORY Never Assessed REASON FOR VISIT CHAIM eason/rosalia Schaffer MA PLAN OF CARE Activity Details Follow Up 4-6 w Reason: VITAL SIGNS Height 59 in 2018-02-26 Weight 189 lbs 2018-02-26 Heart Rate 90 bpm 2018-02-26 Respiratory Rate 20 2018-02-26 Oximetry on room air:97 % 2018-02-26 BMI 38.17 kg/m2 2018-02-26 Blood pressure systolic 120 mmHg 2018-02-26 Blood pressure diastolic 72 mmHg 2018-02-26 MEDICATIONS Medication Instructions Dosage Frequency Start Date End Date Duration Status Levothyroxine Sodium 25 MCG Orally Once a day 1 tablet on an empty stomach in the morning 24h Jun, 30 day(s) Active Norvasc 5 MG Orally Once a day 1 tablet 24h May, 30 day(s) Unknown Lisinopril 20 MG TAKE ONE TABLET BY MOUTH ONCE DAILY 30 Active Citalopram Hydrobromide 20 mg Orally Once a day 1 tablet 24h Feb, 30 day(s) Active Trazodone HCl 100 mg Orally for sleep 1 tablet at bedtime 30 Not- Taking Maxalt 10 MG Orally Once a day 1 tablet as needed 24h 30 days Unknown Levothyroxine Sodium 200 MCG Orally Once a day 1 tablet 24h 30 Active Latuda 40 mg Orally Once a day 1 tablet with food 24h Jul, 90 days Not-Taking HydrOXYzine Pamoate 50 MG Orally 2 times a day as needed for anxiety 1 capsule as needed Feb, 30 day(s) Active Tizanidine HCl 4 MG Orally Three times a day 1 tablet as needed 8h Nov, Unknown Amitriptyline HCl 50 MG Orally Once a day for migraine and sleep Take 1/2 tab for three nights then increase to 1 whole tablet 30 Active Guanfacine HCl 2 MG TAKE ONE-HALF TABLET BY MOUTH ONCE DAILY AM; ONE-HALF TABLET AT 2:00PM AND ONE TABLET AT BEDTIME 30 Active Amitriptyline HCl 25 MG TAKE ONE TABLET BY MOUTH ONCE DAILY FOR MIGRAINE 30 Active RESULTS No Results PROCEDURES No [...] History Panic attack, sob 03/2015 Hospitalization History [place] [id number]
--- OUTSIDE RECORDS SUMMARY | 2018-09-23 22:12 | XMS REPORT ---
Author Author LUC TEE [facility] Address [address] [place] [address] Care Team Providers Care Automation Qtp Tester Name Role Phone TEE CALLE Unavailable PROBLEMS Type Condition ICD9-CM Code [id number] Code Onset Dates Condition Status SNOMED Code Problem Essential hypertension I10 Active 28165622 Problem Primary insomnia F51.01 Active 3382080 Problem Acquired hypothyroidism E03.9 Active 631974876 Problem Hypothyroidism (acquired) E03.9 Active 219075665 Problem Arthritis M19.90 Active 0996579 Problem Sciatica of right side M54.31 Active 64932366 Problem Migraine with aura and without status migrainosus, not intractable G43.109 Active 2316932 Problem Attention-deficit hyperactivity disorder, predominantly inattentive type F90.0 Active 97388116 Problem Current nonadherence to medical treatment Z91.19 Active 2483312 Problem LGSIL on Pap smear of cervix R87.612 Active 367429537 Problem Postoperative hypothyroidism E89.0 Active 63697667 Problem Generalized anxiety disorder F41.1 Active 01266794 Problem Bipolar 2 disorder F31.81 Active 78761606 Problem Abnormal liver function K76.89 Active 04248922 Problem Acne L70.9 Active 11120007 Problem Obesity E66.9 Active 771572233 Problem Panic disorder [episodic paroxysmal anxiety] without agoraphobia F41.0 Active 59472414 ALLERGIES No Information ENCOUNTERS Encounter Location Date Diagnosis [facility] [id number] [address] May, [facility] [address] [address] 56[address] Apr, [facility] [id number] [address] 4202 Apr, [facility] [id number] [place] [address] 22910- 4866 Apr, Generalized anxiety disorder F41.1 ; Arthritis M19.90 ; Hypothyroidism (acquired) E03.9 and Lymph node enlargement R59.9 [address] [facility] [id number] [place] [address] 95351- 0623 Apr, Arthritis M19.90 and Sciatica of right side M54.31 [facility] [facility] [id number] [place] [address] 13401- 3409 Mar, Arthritis M19.90 ; Hypothyroidism (acquired) E03.9 and Lymph node enlargement R59.9 [place] [id number] [place] [address] 98350- 9315 10 Mar, 2018 Well woman exam with routine gynecological exam Z01.419 ; control counseling Z30.09 ; Acquired hypothyroidism E03.9 ; Sciatica of right side M54.31 ; Breast tenderness N64.4 and Generalized anxiety disorder F41.1 [place] [id number] [place] [address] 98127- 3008 06 Mar, 2018 [place] [id number] [place] [address] 60202- 5146 Feb, Bipolar 2 disorder F31.81 ; Generalized anxiety disorder F41.1 ; Attention-deficit hyperactivity disorder, predominantly inattentive type F90.0 and Current nonadherence to medical treatment Z91.19 [place] [id number] [place] [address] 41211- 3543 Feb, [facility] [id number] [place] [address] 73841- 5549 Nov, Normal physical exam Z00.00 and Enlarged lymph node R59.9 [place] [id number] [place] [address] 52397- 9441 Nov, Enlarged lymph node R59.9 ; Abnormal liver function K76.89 and Hypothyroid E03.9 [place] [id number] [place] [address] 24506- 5527 Oct, Bipolar 2 disorder F31.81 [facility] [address] [address] 4990 Oct, Sciatica of right side M54.31 and Essential hypertension I10 [facility] [address] [address]- 0770 06 Oct, 2017 [facility] [id number] [place] [address] 25383- 3738 Aug, Hypothyroid E03.9 [facility] [id number] [place] [address] 31955- 1751 Aug, [place] [id number] [place] [address] 25365- 8923 Aug, Bipolar 2 disorder F31.81 [place] [id number] [place] [address] 93378- 3326 05 Aug, 2017 Abnormal liver function K76.89 [place] [id number] [place] [address] 91019- 1325 Jul, Bipolar 2 disorder F31.81 [facility] [id number] [place] [address] 05491 -7705 Jul, [facility] [id number] [place] [address] 45407- 6016 14 Jul, 2017 Bipolar 2 disorder F31.81 ; Generalized anxiety disorder F41.1 ; Attention-deficit hyperactivity disorder, predominantly inattentive type F90.0 and Current nonadherence to medical treatment Z91.19 [facility] [address] [place] [address] 87371 -6375 14 Jul, 2017 Essential hypertension I10 ; Other viral agents as the cause of diseases classified elsewhere B97.89 ; Acute upper respiratory infection, unspecified J06.9 and BMI 40.0-44.9, adult Z68.41 [facility] [id number] [place] [address] 30061- 4452 Jul, [facility] [address] [place] [address]- 0674 Jul, [facility] [id number] [place] [address] 67256- 5054 Jun, [facility] [id number] [place] [address] 45142- 1952 Jun, [facility] [id number] [place] [address] 57725- 2168 Jun, Dysuria R30.0 ; Urinary tract infection, site not specified N39.0 ; Hematuria, unspecified R31.9 ; Sciatica of right side M54.31 ; Migraine with aura and without status migrainosus, not intractable G43.109 ; Primary insomnia F51.01 ; Essential hypertension I10 and Acquired hypothyroidism E03.9 [facility] [id number] [place] [address] 88336- 1758 Jun, Bipolar 2 disorder F31.81 [place] [id number] [place] [address] 73228- 0917 Jun, Bipolar 2 disorder F31.81 [facility] [id number] [place] [address] 40646- 8118 May, Sore throat J02.9 ; Acute serous otitis media of left ear, recurrence not specified H65.02 and Hypertension I10 [facility] [id number] [place] [address] 84202- 0889 May, Bipolar 2 disorder F31.81 [facility] [id number] [place] [address] 07022- 7340 Apr, [facility] [id number] [place] [address] 27080- 7643 Apr, Bipolar 2 disorder F31.81 [facility] [id number] [place] [address] 10288- 4907 Mar, [facility] [id number] [place] [address] 21691- 5767 Feb, Bipolar 2 disorder F31.81 ; Attention deficit disorder F90.0 ; COLLEEN (generalized anxiety disorder) F41.1 and Panic disorder [episodic paroxysmal anxiety] without agoraphobia F41.0 [facility] [address] [address]- 8351 January, Bipolar 2 disorder F31.81 [facility] [address] [address]- 4953 Dec, [facility] [address] [address]- 0334 Dec, [facility] [id number] [place] [address] 54973- 4293 Dec, [facility] [id number] [place] [address] 77598- 9165 Dec, Generalized anxiety disorder F41.1 ; Bipolar 2 disorder F31.81 and Panic disorder [episodic paroxysmal anxiety] without agoraphobia F41.0 [facility] [address] [address]- 9987 Dec, [facility] [address] [address]- 1147 Dec, [facility] [address] [address]- 7923 Nov, [facility] [address] [address]- 9032 Nov, [facility] [address] [address]- 4856 Nov, [facility] [address] [address]- 2796 Oct, [facility] [address] [address]- 9795 Oct, [facility] [address] [address]- 3832 Oct, [facility] [address] [address]- 5007 Oct, [facility] [id number] [place] [address] 47066- 2066 Oct, [facility] [address] [place] [address] 96416- 6523 Sep, Bipolar 2 disorder F31.81 ; COLLEEN (generalized anxiety disorder) F41.1 ; Attention deficit disorder F90.0 and Panic disorder [episodic paroxysmal anxiety] without agoraphobia F41.0 [facility] [id number] [place] [address] 84404- 7747 Sep, [facility] [id number] [place] [address] 46236- 2114 Sep, [facility] [id number] [place] [address] 81239- 3558 Sep, [facility] [address] [address]- 5437 Aug, [facility] [id number] [place] [address] 83728- 0137 Aug, [facility] [address] [address]- 7790 Aug, [facility] [address] [place] [address] 58242- 1739 Aug, [facility] [address] [address]- 2875 Jul, [facility] [id number] [place] [address] 177604- 3469 Jul, [facility] [address] 2081 Jul, [facility] [address] [address]- 4723 Jun, [facility] [id number] [place] [address] 38919- 7445 13 Jun, 2016 Bipolar 2 disorder F31.81 ; Attention deficit disorder F90.0 ; COLLEEN (generalized anxiety disorder) F41.1 and Panic disorder [episodic paroxysmal anxiety] without agoraphobia F41.0 [facility] [id number] [place] [address] 44458- 1370 Jun, [facility] [address] 06289- 2786 Jun, [facility] [address] 69767- 2024 Jun, Right foot pain M79.671 and Nausea and vomiting in adult R11.2 [address] 45103- 0666 May, [facility] [address] 01467- 7719 May, Other sinusitis, unspecified chronicity J32.9 ; Environmental allergies Z91.09 ; Other chronic pain G89.29 and Sacrococcygeal disorders, not elsewhere classified M53.3 [facility] [id number] [place] [address] 71980 -6196 May, Acute non-recurrent pansinusitis J01.40 and Gastroenteritis K52.9 [facility] [id number] [place] [address] 94790- 6035 May, [facility] [address] 32537- 7480 May, [facility] [address] 63700- 7217 Apr, Bronchitis J40 [facility] [id number] [place] [address] 28677- 0688 Apr, [facility] [address] 50573- 9334 Apr, [facility] [address] [address]- 0458 Apr, [facility] [address] [address] -2928 Apr, Nausea and vomiting in adult R11.2 [facility] [address] [address]- 4963 Apr, Nausea and vomiting in adult R11.2 [facility] [id number] [place] [address] 17988- 0422 Apr, Bipolar 2 disorder F31.81 ; Generalized anxiety disorder F41.1 ; Panic disorder [episodic paroxysmal anxiety] without agoraphobia F41.0 ; Attention deficit disorder F90.0 and COLLEEN (generalized anxiety disorder) F41.1 [facility] [address] [address]- 4650 Apr, [facility] [address] [place] [address] 70209- 5825 Mar, [facility] [address] [address]- 5542 Mar, [facility] [address] [address]- 8140 Mar, [facility] [address] [address]- 0497 Mar, Bipolar 2 disorder F31.81 ; Attention deficit disorder F90.0 ; COLLEEN (generalized anxiety disorder) F41.1 and Panic disorder [episodic paroxysmal anxiety] without agoraphobia F41.0 [facility] [address] [address]- 4922 Mar, [facility] [address] [address]- 6849 Feb, Bipolar 2 disorder F31.81 ; Generalized anxiety disorder F41.1 and Attention deficit disorder F90.0 [facility] [address] [place] [address] 62446- 6821 Feb, Generalized anxiety disorder F41.1 [facility] [id number] [place] [address] 57871- 7676 Feb, Generalized anxiety disorder F41.1 ; Attention deficit disorder F90.0 and Bipolar 2 disorder F31.81 [facility] [id number] [place] [address] 82087- 3215 Feb, Bipolar 2 disorder F31.81 ; Generalized anxiety disorder F41.1 ; Attention deficit disorder F90.0 and Insomnia, unspecified type G47.00 [facility] [id number] [place] [address] 75906- 6797 Feb, Excessive sweating R61 and Breast lump in upper outer quadrant N63 [facility] [id number] [place] [address] 86933 -3455 January, Low back pain M54.5 ; Other chronic pain G89.29 and Urinary tract infection, site unspecified N39.0 [facility] [id number] [place] [address] 79671- 2980 January, Bipolar II disorder F31.81 [facility] [id number] [place] [address] 73227- 5339 January, [facility] [id number] [place] [address] 69378- 2020 January, Insomnia, unspecified type G47.00 and Grief F43.20 [facility] [id number] [place] [address] 41169- 1539 January, [facility] [id number] [place] [address] 62427- 6273 Dec, [facility] [id number] [place] [address] 13322- 0964 Dec, [facility] [id number] [place] [address] 14816- 4675 Dec, Bipolar 2 disorder F31.81 ; Generalized anxiety disorder F41.1 and Attention deficit disorder F90.0 [facility] [address] 91013- 0957 Dec, Sinusitis J32.9 [facility] [address] 87524- 2655 14 Dec, 2015 Sinusitis J32.9 and Hypothyroid E03.9 [facility] [address] 92367- 5271 Dec, [facility] [address] 00196 -2220 Dec, Cough R05 and Allergic rhinitis J30.9 [address] [place] [address] 66228- 9658 Nov, Hypertension I10 ; Obesity E66.9 and Acne L70.9 [place] [address] 28792- 9421 Nov, [facility] [address] 45992- 4784 Oct, [facility] [address] 32426- 0534 Oct, [facility] [address] 09429- 5218 Oct, [facility] [address] 14812- 4956 Oct, [facility] [address] 79275- 5051 Sep, Lymphadenitis I88.9 ; Essential hypertension I10 and Acne, unspecified acne type L70.9 [facility] [address] 59797- 6425 Sep, [facility] [address] 80203- 6595 Sep, [facility] [address] [place] [address] 62516- 6202 Sep, [facility] [address] [place] [address] 989828- 7667 Sep, Acquired hypothyroidism E03.9 [facility] [id number] [place] [address] 63885- 0643 Aug, Acquired hypothyroidism E03.9 [facility] [id number] [place] [address] 20764- 0619 Aug, Furuncle L02.92 [facility] [id number] [place] [address] 60727- 2615 Aug, [facility] [id number] [place] [address] 47969- 7997 Aug, Bipolar 2 disorder F31.81 ; Generalized anxiety disorder F41.1 ; Attention deficit disorder F90.0 and Obesity E66.9 [facility] [id number] [place] [address] 69055- 8530 Aug, [facility] [id number] [place] [address] 60205- 0912 Aug, [facility] [id number] [place] [address] 94700- 1976 Aug, Acquired hypothyroidism E03.9 [facility] [id number] [place] [address] 44999- 1630 Jul, Acquired hypothyroidism E03.9 ; Upper respiratory tract infection, unspecified type J06.9 and Nonintractable migraine, unspecified migraine type G43.009 [facility] [address] [place] [address] 43112- 7961 14 Jun, 2015 Acute pharyngitis, unspecified J02.9 [facility] [address] [place] [address] 75159- 7006 24 May, 2015 Bipolar II disorder 296.89 ; Attention deficit disorder of childhood without mention of hyperactivity 314.00 ; Generalized anxiety disorder 300.02 and Morbid obesity with BMI of 45.0-49.9, adult 278.01 [facility] [address] [address]- 3876 May, Sinusitis 473.9 [facility] [address] [address]- 0341 Apr, [facility] [id number] [place] [address] 28705- 1762 Mar, [facility] [address] [address]- 5458 Mar, Bipolar II disorder 296.89 ; Generalized anxiety disorder 300.02 ; Obesity, unspecified 278.00 and Attention deficit disorder 314.00 [facility] [address] [address]- 7574 Feb, [facility] [address] [address]- 5595 January, [facility] [address] [address]- 6589 January, [facility] [address] 2940 January, [facility] [address] [address]- 6876 January, [facility] [address] [address]- 3947 Dec, [facility] [address] [address]- 7032 Dec, [facility] [address] [address]- 6816 Nov, [facility] [address] [address]- 5606 Nov, [facility] [id number] [place] [address]- 8616 18 Nov, 2014 [facility] [place] [facility] [address] [id number] [place] [address]- 0683 11 Nov, 2014 [facility] [place] [facility] [address] [id number] [place] [address]- 4152 11 Nov, 2014 [facility] [place] [facility] [address] [id number] [place] [address]- 5144 11 Nov, 2014 [facility] [place] [facility] [address] [id number] [place] [address]- 4398 11 Nov, 2014 [facility] [place] [facility] [address] [id number] [place] [address]- 1556 Nov, [facility] [place] [facility] [address] [id number] [place] [address]- 0490 Nov, [facility] [place] [facility] [address] [id number] [place] [address]- 1866 Nov, [facility] [place] [facility] [address] [id number] [place] [address]- 8446 10 Nov, 2014 [facility] [place] [facility] [address] [id number] [place] [address]- 5016 Nov, [facility] [place] [facility] [address] [id number] [place] [address]- 2735 Nov, [facility] [place] [facility] [address] [id number] [place] [address]- 6505 Nov, [facility] [place] [facility] [address] [id number] [place] [address]- 0462 Oct, [facility] [place] [facility] [address] [id number] [place] [address]- 9899 Oct, [facility] [place] [facility] [address] [id number] [place] [address]- 3697 Oct, [facility] [place] [facility] [address] [id number] [place] [address]- 2129 Oct, [facility] [place] [facility] [address] [id number] [place] [address]- 4448 Oct, [facility] [place] [facility] [address] [id number] [place] [address]- 4220 Oct, [facility] [place] [facility] [address] [facility] [id number] [place] [address]- 7962 Oct, [facility] [place] [facility] [address] [id number] [place] [address]- 1338 Oct, 2014 [facility] [place] [facility] [address] [id number] [place] [address]- 5764 Oct, [facility] [place] [facility] [address] [facility] [id number] [place] [address]- 4610 Oct, [facility] [place] [facility] [address] [facility] [id number] [place] [address] Oct, [facility] [place] [facility] [address] [facility] [id number] [place] [address] Oct, [facility] [place] [facility] [address] [facility] [id number] [place] [address] Sep, [facility] [place] [facility] [address] [facility] [id number] [place] [address] Sep, [facility] [place] [facility] [address] [facility] [id number] [place] [address] Sep, [facility] [place] [facility] [address] [facility] [id number] [place] [address] Sep, [facility] [place] [facility] [address] [id number] [place] [address] Sep, [facility] [place] [facility] [address] [facility] [id number] [place] [address] Sep, [facility] [place] [facility] [address] [facility] [id number] [place] [address] Sep, [facility] [place] [facility] [address] [id number] [place] [address] Sep, [facility] [place] [facility] [address] [id number] [place] [address] Aug, [facility] [place] [facility] [address] [id number] [place] [address] Aug, [facility] [place] [facility] [address] [id number] [place] [address] Aug, [facility] [place] [facility] [address] [id number] [place] [address] Aug, [facility] [place] [facility] [address] [id number] [place] [address] Aug, [facility] [place] [facility] [address] [id number] [place] [address] Aug, [facility] [place] [facility] [address] [id number] [place] [address] Aug, [facility] [place] [facility] [address] [id number] [place] [address] Aug, [facility] [place] [facility] [address] [id number] [place] [address] Aug, [facility] [place] [facility] [address] [id number] [place] [address] Aug, [facility] [place] [facility] [address] [id number] [place] [address] Aug, [facility] [place] [facility] [address] [id number] [place] [address] Aug, [facility] [place] [facility] [address] [id number] [place] [address] Aug, [facility] [place] [facility] [address] [id number] [place] [address] Aug, [facility] [place] [facility] [address] [id number] [place] [address] Jul, [facility] [place] [facility] [address] [id number] [place] [address] Jul, [facility] [place] [facility] [address] [id number] [place] [address] Jul, [facility] [facility] [address] [id number] [place] [address] Jul, [facility] [place] [facility] [address] [id number] [place] [address] Jul, [facility] [place] [facility] [address] [id number] [place] [address] Jul, [facility] [place] [facility] [address] [id number] [place] [address] Jul, [facility] [place] [facility] [address] [id number] [place] [address] Jul, [facility] [place] [facility] [address] [id number] [place] [address] Jul, [facility] [place] [facility] [address] [id number] [place] [address] Jul, [facility] [place] [facility] [address] [id number] [place] [address] Jul, [facility] [place] [facility] [address] [id number] [place] [address] Jul, [facility] [place] [facility] [address] [id number] [place] [address] 8[address] 16 Jun, 2014 [facility] [facility] [address] [id number] [place] [address] 8829 16 Jun, 2014 [facility] [place] [facility] [address] [id number] [place] [address] 72[address] 15 Jun, 2014 [facility] [place] [facility] [address] [id number] [place] [address]- 1765 14 Jun, 2014 [facility] [place] [facility] [address] [id number] [place] [address]- 9545 14 Jun, 2014 [facility] [place] [facility] [address] [id number] [place] [address]- 4536 14 Jun, 2014 [facility] [place] [facility] [address] [id number] [place] [address]- 1759 14 Jun, 2014 [facility] [place] [facility] [address] [id number] [place] [address]- 5768 13 Jun, 2014 [facility] [place] [facility] [address] [id number] [place] [address]- 6241 10 Jun, 2014 [facility] [place] [facility] [address] [id number] [place] [address]- 6756 10 Jun, 2014 [facility] [address] [id number] [place] [address]- 8314 09 Jun, 2014 [facility] [place] [facility] [address] [id number] [place] [address]- 4828 09 Jun, 2014 [facility] [place] [facility] [address] [id number] [place] [address]- 4227 06 Jun, 2014 [facility] [place] [facility] [address] [id number] [place] [address]- 1717 06 Jun, 2014 [facility] [place] [facility] [address] [id number] [place] [address]- 1573 16 May, 2013 [facility] [place] [facility] [address] [id number] [place] [address]- 1955 15 May, 2013 [facility] [place] [facility] [address] [id number] [place] [address] 1947 15 May, 2013 [facility] [place] [facility] [address] [id number] [place] [address]- 7952 15 May, 2014 [facility] [place] [address] [id number] [place] [address]- 1899 15 May, 2013 [facility] [address] [id number] [place] [address]- 0848 15 May, 2013 [facility] [place] [facility] [address] [id number] [place] [address]- 0527 15 May, 2013 [facility] [place] [address] [id number] [place] [address]- 6446 12 May, 2013 [facility] [place] [address] [id number] [place] [address]- 2456 12 May, 2013 [facility] [place] [address] [id number] [place] [address]- 9153 10 May, 2013 [facility] [address] [id number] [place] [address]- 2417 10 May, 2013 [facility] [address] [id number] [place] [address]- 8231 02 May, 2013 [facility] [address] [id number] [place] [address]- 6655 02 May, 2013 [facility] [address] [id number] [place] [address]- 0956 May, 2013 [facility] [address] [id number] [place] [address]- 0737 May, [facility] [place] [facility] [address] [id number] [place] [address]- 8881 Apr, [facility] [address] [id number] [place] [address]- 9217 Apr, [facility] [address] [id number] [place] [address]- 9017 Apr, [facility] [address] [id number] [place] [address]- 8571 Apr, [facility] [address] [id number] [place] [address]- 6810 Apr, [facility] [address] [id number] [place] [address]- 4034 Apr, [facility] [address] [id number] [place] [address]- 3365 Apr, [facility] [address] [id number] [place] [address]- 06[address] Apr, [facility] [address] [id number] [place] [address]- 1925 Apr, [facility] [address] [id number] [place] [address]- 9954 Mar, [facility] [address] [id number] [place] [address]- 2708 Mar, [facility] [address] [id number] [place] [address]- 5218 Mar, [facility] [address] [id number] [place] [address]- 5974 Mar, [facility] [address] [id number] [place] [address]- 6976 Mar, [facility] [address] [id number] [place] [address]- 4046 Mar, [facility] [address] [id number] [place] [address]- 2737 Mar, [facility] [address] [id number] [place] [address]- 8575 Mar, [facility] [address] [id number] [place] [address]- 6746 Mar, [facility] [address] [id number] [place] [address]- 4944 Mar, [facility] [address] [id number] [place] [address]- 0509 Mar, [facility] [address] [id number] [place] [address]- 1448 Mar, [facility] [address] [id number] [place] [address]- 1863 Mar, [facility] [address] [id number] [place] [address]- 9454 Mar, [facility] [address] [id number] [place] [address]- 5975 Mar, [facility] [address] [id number] [place] [address]- 9745 Mar, [facility] [address] [id number] [place] [address]- 0868 Mar, [facility] [address] [id number] [place] [address]- 8648 Mar, [facility] [address] [id number] [place] [address]- 1167 Feb, [facility] [address] [id number] [place] [address]- 9122 Feb, [facility] [address] [id number] [place] [address]- 6772 Feb, [facility] [address] [id number] [place] [address]- 2485 Feb, [facility] [address] [id number] [place] [address]- 8821 Feb, [facility] [address] [id number] [place] [address]- 3822 Feb, [facility] [address] [id number] [place] [address]- 5745 Feb, [facility] [address] [id number] [place] [address]- 5288 Feb, [facility] [address] [id number] [place] [address]- 8806 Feb, [facility] [address] [id number] [place] [address]- 2077 Feb, [facility] [address] [id number] [place] [address]- 4501 January, [facility] [address] [id number] [place] [address]- 9530 January, [facility] [address] [id number] [place] [address]- 8022 January, [facility] [address] [id number] [place] [address]- 0665 January, [facility] [address] [id number] [place] [address]- 5211 January, [facility] [address] [id number] [place] [address]- 0236 January, [facility] [address] [id number] [place] [address]- 4348 January, [facility] [address] [id number] [place] [address]- 3691 January, [facility] [address] [id number] [place] [address]- 8283 January, [facility] [address] [id number] [place] [address]- 4092 January, [facility] [address] [id number] [place] [address]- 7866 January, [facility] [address] [id number] [place] [address]- 6689 January, [facility] [address] [id number] [place] [address]- 9650 January, [facility] [address] [id number] [place] [address]- 9902 January, [facility] [address] [id number] [place] [address]- 6982 January, [facility] [address] [id number] [place] [address] Dec, [facility] [address] [id number] [place] [address]- 0081 Dec, [facility] [address] [id number] [place] [address]- 6868 Dec, [facility] [address] [id number] [place] [address]- 2528 Dec, [facility] [address] [facility] [id number] [place] [address]- 7055 Dec, [facility] [address] [id number] [place] [address]- 1041 Dec, [facility] [address] [id number] [place] [address]- 2166 Nov, [facility] [address] [facility] [id number] [place] [address]- 9200 Nov, [facility] [address] [facility] [id number] [place] [address]- 5262 Nov, [facility] [address] [facility] [id number] [place] [address]- 9619 Nov, [facility] [address] [facility] [id number] [place] [address]- 0881 Nov, [facility] [address] [facility] [id number] [place] [address]- 8946 Oct, [facility] [address] [facility] [id number] [place] [address]- 5685 Oct, [facility] [address] [facility] [id number] [place] [address]- 1805 Oct, [facility] [address] [id number] [place] [address]- 4745 Oct, [facility] [address] [facility] [id number] [place] [address]- 8261 10 Oct, 2013 [facility] [address] [facility] [id number] [place] [address]- 0284 06 Oct, 2013 [facility] [address] [id number] [place] [address]- 9224 Oct, [facility] [address] [id number] [place] [address]- 2121 Oct, [facility] [facility] [address] [id number] [place] [address]- 6331 Oct, [facility] [facility] [address] [id number] [place] [address]- 4148 Oct, [facility] [address] [id number] [place] [address]- 2552 Oct, [facility] [address] [id number] [place] [address]- 6928 Sep, [facility] [facility] [address] [id number] [place] [address]- 2647 Sep, [facility] [facility] [address] [id number] [place] [address]- 6737 Sep, [facility] [place] [facility] [address] [id number] [place] [address]- 7178 Sep, [facility] [place] [facility] [address] [id number] [place] [address]- 8899 Aug, [facility] [place] [facility] [address] [id number] [place] [address]- 2301 Aug, [facility] [facility] [address] [id number] [place] [address]- 4445 Jul, [facility] [facility] [address] [id number] [place] [address]- 0556 Jul, [facility] [address] [id number] [place] [address]- 1672 Jul, [facility] [facility] [address] [id number] [place] [address]- 4175 Jul, [facility] [facility] [address] [id number] [place] [address] 2546 Jul, [facility] [address] [id number] [place] [address]- 4191 Jun, [facility] [address] [id number] [place] [address]- 4710 Jun, [facility] [address] [id number] [place] [address]- 0739 May, [facility] [address] [id number] [place] [address]- 2192 Mar, [facility] [address] [id number] [place] [address]- 4574 Mar, [facility] [place] [facility] [address] [id number] [place] [address]- 2546 Mar, [facility] [address] [id number] [place] [address]- 7047 Feb, [facility] [address] [id number] [place] [address]- 7338 January, [facility] [address] [id number] [place] [address]- 0884 Dec, [facility] [facility] [address] [facility] [id number] [place] [address]- 6022 Nov, [facility] [place] [facility] [address] [id number] [place] [address]- 7736 Nov, [facility] [place] [facility] [address] [id number] [place] [address]- 2545 Nov, [facility] [place] [facility] [address] [id number] [place] [address]- 5980 Oct, [facility] [place] [facility] [address] [id number] [place] [address]- 2546 Oct, [facility] [place] [facility] [address] [id number] [place] [address] 2546 Oct, [facility] [address] [facility] [id number] [place] [address]- 0826 Oct, [facility] [address] [facility] [id number] [place] [id number] Sep, IMMUNIZATIONS No Known Immunizations SOCIAL HISTORY Never Assessed REASON FOR VISIT Refill request PLAN OF CARE VITAL SIGNS MEDICATIONS Unknown [...]
--- OUTSIDE RECORDS SUMMARY | 2018-09-23 22:13 | XMS REPORT ---
Author Author KORIN ALEXANDER [facility] Address [address] [place] [address] Care Team Providers Care Database Administration Associate Name Role Phone KORIN ALEXANDER Unavailable PROBLEMS Type Condition ICD9-CM Code [id number] Code Onset Dates Condition Status SNOMED Code Problem Acne L70.9 Active 20208535 Problem Sciatica of right side M54.31 Active 29246035 Problem Panic disorder [episodic paroxysmal anxiety] without agoraphobia F41.0 Active 89461464 Problem Attention-deficit hyperactivity disorder, predominantly inattentive type F90.0 Active 88416974 Problem Current nonadherence to medical treatment Z91.19 Active 3829519 Problem Acquired hypothyroidism E03.9 Active 380296071 Problem Essential hypertension I10 Active 02516575 Problem Primary insomnia F51.01 Active 3045631 Problem Migraine with aura and without status migrainosus, not intractable G43.109 Active 6402413 Problem Abnormal liver function K76.89 Active 53893403 Problem Obesity E66.9 Active 140825186 Problem LGSIL on Pap smear of cervix R87.612 Active 952590463 Problem Bipolar 2 disorder F31.81 Active 54671608 Problem Postoperative hypothyroidism E89.0 Active 24075087 Problem Generalized anxiety disorder F41.1 Active 92119200 ALLERGIES Substance Reaction Event Type Date Status Sulfacetamide Sodium Unknown Drug Allergy Nov, Active Penicillin V Potassium hives Drug Allergy Nov, Active Benzodiazepines Failed UDS Non Drug Allergy Nov, Active Hydrocodone Failed UDS Non Drug Allergy Nov, Active ENCOUNTERS Encounter Location Date Diagnosis [facility] [place] [address] [facility] [id number], [place] [address] Apr, [facility] [place] [address] [facility] [id number], [place] [address] Mar, [facility] [place] [address] [facility] [id number], [place] [address] Mar, [place] [id number] [place] [address] 50376- 0904 Mar, Well woman exam with routine gynecological exam Z01.419 ; control counseling Z30.09 ; Acquired hypothyroidism E03.9 ; Sciatica of right side M54.31 ; Breast tenderness N64.4 and Generalized anxiety disorder F41.1 [place] [address] [place] [id number] [place] [address] 89188- 5882 Mar, [place] [id number] [place] [address] 64376- 2489 Feb, Bipolar 2 disorder F31.81 ; Generalized anxiety disorder F41.1 ; Attention-deficit hyperactivity disorder, predominantly inattentive type F90.0 and Current nonadherence to medical treatment Z91.19 [place] [id number] [place] [address] 97460- 4309 Feb, [place] [id number] [place] [address] 41329- 6831 Nov, Normal physical exam Z00.00 and Enlarged lymph node R59.9 [place] [id number] [place] [address] 28012- 1462 Nov, Enlarged lymph node R59.9 ; Abnormal liver function K76.89 and Hypothyroid E03.9 [place] [id number] [place] [address] 33199- 6249 Oct, Bipolar 2 disorder F31.81 [place] [id number] [place] [address] 73808- 4019 Oct, Sciatica of right side M54.31 and Essential hypertension I10 [place] [id number] [place] [address] 04115- 5394 Oct, [place] [id number] [place] [address] 94002- 7971 Aug, Hypothyroid E03.9 [place] [address] [place] [address]- 7528 14 Aug, 2017 [facility] [place] [address] [address] Aug, Bipolar 2 disorder F31.81 [facility] [place] [address] [address] 9775 05 Aug, 2017 Abnormal liver function K76.89 [facility] [place] [id number] [place] [address] 56916- 7286 29 Jul, 2017 Bipolar 2 disorder F31.81 [facility] [address] [address] Jul, [facility] [place] [id number] [place] [address] 98986- 4869 Jul, Bipolar 2 disorder F31.81 ; Generalized anxiety disorder F41.1 ; Attention-deficit hyperactivity disorder, predominantly inattentive type F90.0 and Current nonadherence to medical treatment Z91.19 [facility] [address] [address] 14 Jul, 2017 Essential hypertension I10 ; Other viral agents as the cause of diseases classified elsewhere B97.89 ; Acute upper respiratory infection, unspecified J06.9 and BMI 40.0-44.9, adult Z68.41 [facility] [place] [address], [place] [address] 3393 Jul, [facility] [place] [address], [place] [address] 8291 Jul, [facility] [place] [address] [address] 2601 Jun, [place] [id number] [place] [address] 35844- 9264 Jun, [facility] [place] [address] [address] 7646 Jun, Dysuria R30.0 ; Urinary tract infection, site not specified N39.0 ; Hematuria, unspecified R31.9 ; Sciatica of right side M54.31 ; Migraine with aura and without status migrainosus, not intractable G43.109 ; Primary insomnia F51.01 ; Essential hypertension I10 and Acquired hypothyroidism E03.9 [facility] [id number] [place] [address] 87562- 0759 Jun, Bipolar 2 disorder F31.81 [facility] [place] [address] 81826- 7524 Jun, Bipolar 2 disorder F31.81 [facility] [place] [address] 81928- 8503 May, Sore throat J02.9 ; Acute serous otitis media of left ear, recurrence not specified H65.02 and Hypertension I10 [facility] [place] [id number] [place] [address] 53761- 7197 May, Bipolar 2 disorder F31.81 [facility] [place] [id number] [place] [address] 63836- 5776 Apr, [facility] [place] [address] 03927- 2526 Apr, Bipolar 2 disorder F31.81 [facility] [place] [id number] [place] [address] 41224- 5266 Mar, [facility] [place] [id number] [place] [address] 21708- 8062 Feb, Bipolar 2 disorder F31.81 ; Attention deficit disorder F90.0 ; COLLEEN (generalized anxiety disorder) F41.1 and Panic disorder [episodic paroxysmal anxiety] without agoraphobia F41.0 [facility] [place] [id number] [place] [address] 37016- 1336 January, Bipolar 2 disorder F31.81 [facility] [place] [id number] [place] [address] 40541- 9808 Dec, [facility] [place] [address] 92606- 8752 18 Dec, 2016 [facility] [place] [address], [place] [address]- 0979 Dec, [facility] [place] [address] [address] Dec, Generalized anxiety disorder F41.1 ; Bipolar 2 disorder F31.81 and Panic disorder [episodic paroxysmal anxiety] without agoraphobia F41.0 [facility] [place] [address] [address]- 6809 Dec, [facility] [place] [id number], [place] [address]- 5566 Dec, [facility] [address], [place] [address]- 1270 Nov, [facility] [id number] [place] [address] 80182- 4145 Nov, [facility] [place] [id number] [address]- 8564 Nov, [facility] [address], [place] [address]- 5691 Oct, [facility] [place] [id number], [place] [address]- 2132 Oct, [facility] [place] [id number], [place] [address]- 4776 Oct, [facility] [place] [id number], [place] [address]- 7114 Oct, [facility] [place] [id number], [place] [address]- 5536 Oct, [facility] [place] [address] [address] Sep, Bipolar 2 disorder F31.81 ; COLLEEN (generalized anxiety disorder) F41.1 ; Attention deficit disorder F90.0 and Panic disorder [episodic paroxysmal anxiety] without agoraphobia F41.0 [facility] [place] [address], [place] [address]- 7097 Sep, [facility] [place] [id number], [place] [address]- 5988 Sep, [facility] [place] [id number], [place] [address]- 7120 Sep, [facility] [id number] [place] [address] 40080- 7962 Aug, [facility] [place] [id number] [place] [address]- 6175 Aug, [facility] [place] [id number] [place] [address] 48059- 4047 Aug, [facility] [place] [id number] [address]- 7600 Aug, [facility] [place] [id number], [place] [address]- 8493 Jul, [facility] [place] [id number], [place] [address]- 5977 Jul, [facility] [place] [id number], [place] [address]- 0893 Jul, [facility] [place] [id number], [place] [address]- 6209 Jun, [facility] [place] [id number] [address]- 0764 Jun, Bipolar 2 disorder F31.81 ; Attention deficit disorder F90.0 ; COLLEEN (generalized anxiety disorder) F41.1 and Panic disorder [episodic paroxysmal anxiety] without agoraphobia F41.0 [facility] [place] [id number], [place] [address]- 4034 Jun, [facility] [place] [id number], [place] [address]- 0353 Jun, [facility] [place] [id number] [place] [address] 62787- 7507 Jun, Right foot pain M79.671 and Nausea and vomiting in adult R11.2 [facility] [place] [id number] [place] [address] 07482- 7131 May, [facility] [place] [id number] [place] [address] 54983- 2151 May, Other sinusitis, unspecified chronicity J32.9 ; Environmental allergies Z91.09 ; Other chronic pain G89.29 and Sacrococcygeal disorders, not elsewhere classified M53.3 [facility] [address] [address] May, Acute non-recurrent pansinusitis J01.40 and Gastroenteritis K52.9 [facility] [place] [id number] [place] [address] 29358- 7350 May, [facility] [place] [address] 06326- 3887 May, [facility] [place] [address] 48911- 6235 Apr, Bronchitis J40 [facility] [place] [id number] [place] [address] 28107- 0809 Apr, [facility] [place] [id number] [place] [address] 42926- 3902 Apr, [facility] [place] [id number] [place] [address] 54840- 3171 Apr, [facility] [address] 00136 -7374 Apr, Nausea and vomiting in adult R11.2 [facility] [place] [id number] [place] [address] 25269- 4721 Apr, Nausea and vomiting in adult R11.2 [facility] [place] [address] 81854- 3069 Apr, Bipolar 2 disorder F31.81 ; Generalized anxiety disorder F41.1 ; Panic disorder [episodic paroxysmal anxiety] without agoraphobia F41.0 ; Attention deficit disorder F90.0 and COLLEEN (generalized anxiety disorder) F41.1 [facility] [place] [address], [place] [address]- 8052 Apr, [facility] [place] [id number], [place] [address]- 3042 Mar, [facility] [place] [id number], [place] [address]- 8042 Mar, [facility] [place] [id number], [place] [address]- 3258 Mar, [facility] [place] [address] [place] [address] 72250- 3888 Mar, Bipolar 2 disorder F31.81 ; Attention deficit disorder F90.0 ; COLLEEN (generalized anxiety disorder) F41.1 and Panic disorder [episodic paroxysmal anxiety] without agoraphobia F41.0 [facility] [place] [address], [place] [address]- 3546 Mar, [facility] [place] [id number], [place] [address]- 4467 Feb, Bipolar 2 disorder F31.81 ; Generalized anxiety disorder F41.1 and Attention deficit disorder F90.0 [facility] [place] [address], [place] [address]- 2525 Feb, Generalized anxiety disorder F41.1 [facility] [place] [id number], [place] [address]- 8448 Feb, Generalized anxiety disorder F41.1 ; Attention deficit disorder F90.0 and Bipolar 2 disorder F31.81 [facility] [place] [id number], [place] [address]- 9254 Feb, Bipolar 2 disorder F31.81 ; Generalized anxiety disorder F41.1 ; Attention deficit disorder F90.0 and Insomnia, unspecified type G47.00 [facility] [place] [address] [place] [address] 46872- 6126 Feb, Excessive sweating R61 and Breast lump in upper outer quadrant N63 [facility] [id number] [place] [address] 20445 -6880 January, Low back pain M54.5 ; Other chronic pain G89.29 and Urinary tract infection, site unspecified N39.0 [facility] [place] [id number] [place] [address] 51217- 7170 January, Bipolar II disorder F31.81 [facility] [place] [id number] [place] [address] 39244- 9924 January, [facility] [place] [id number] [place] [address] 84869- 0584 January, Insomnia, unspecified type G47.00 and Grief F43.20 [facility] [place] [id number] [place] [address] 86367- 5644 January, [facility] [place] [id number] [place] [address] 73261- 5109 Dec, [facility] [place] [id number] [place] [address] 50501- 0831 Dec, [facility] [place] [id number] [place] [address] 66017- 4837 Dec, Bipolar 2 disorder F31.81 ; Generalized anxiety disorder F41.1 and Attention deficit disorder F90.0 [facility] [place] [id number] [place] [address] 95150- 4042 Dec, Sinusitis J32.9 [facility] [place] [id number] [place] [address] 80787- 0282 14 Dec, 2015 Sinusitis J32.9 and Hypothyroid E03.9 [facility] [place] [id number] [place] [address] 08956- 2272 Dec, [facility] [id number] [place] [address] 79308 -2294 Dec, Cough R05 and Allergic rhinitis J30.9 [facility] [place] [id number] [place] [address] 55569- 8861 Nov, Hypertension I10 ; Obesity E66.9 and Acne L70.9 [facility] [place] [address] 10581- 3403 Nov, [facility] [place] [address] 06727- 3367 Oct, [facility] [place] [address] 10331- 5328 Oct, [facility] [place] [address] 45010- 0173 Oct, [facility] [place] [address] 86458- 6042 Oct, [facility] [place] [id number] [place] [address] 45806- 5028 Sep, Lymphadenitis I88.9 ; Essential hypertension I10 and Acne, unspecified acne type L70.9 [facility] [place] [id number] [place] [address] 59357- 7751 Sep, [facility] [place] [id number] [place] [address] 61652- 2076 Sep, [facility] [place] [id number] [place] [address] 31197- 4355 Sep, [facility] [place] [address] 47061- 0944 Sep, Acquired hypothyroidism E03.9 [facility] [place] [id number] [place] [address] 11962- 5919 Aug, Acquired hypothyroidism E03.9 [facility] [place] [address] [place] [address]- 5863 Aug, Furuncle L02.92 [place] [address] 33220- 0001 Aug, [place] [address] 14565- 1143 Aug, Bipolar 2 disorder F31.81 ; Generalized anxiety disorder F41.1 ; Attention deficit disorder F90.0 and Obesity E66.9 [place] [address] 07212- 0316 Aug, [place] [address] 25774- 8240 Aug, [place] [address] 66929- 3421 Aug, Acquired hypothyroidism E03.9 [place] [address] 59820- 3531 Jul, Acquired hypothyroidism E03.9 ; Upper respiratory tract infection, unspecified type J06.9 and Nonintractable migraine, unspecified migraine type G43.009 [place] [id number] [place] [address] 49386- 2637 Jun, Acute pharyngitis, unspecified J02.9 [place] [id number] [place] [address] 40548- 7027 May, Bipolar II disorder 296.89 ; Attention deficit disorder of childhood without mention of hyperactivity 314.00 ; Generalized anxiety disorder 300.02 and Morbid obesity with BMI of 45.0-49.9, adult 278.01 [place] [id number] [place] [address] 04521- 7656 17 May, 2015 Sinusitis 473.9 [place] [id number] [place] [address] 06340- 8546 Apr, [place] [address] [address] Mar, [facility] [place] [id number] [address] Mar, Bipolar II disorder 296.89 ; Generalized anxiety disorder 300.02 ; Obesity, unspecified 278.00 and Attention deficit disorder 314.00 [facility] [id number] [address] Feb, [facility] [address] [facility] [id number], [place] [address] January, [facility] [id number] [address] January, [facility] [id number], [place] [address] January, [facility] [id number], [place] [address] January, [facility] [id number], [place] [address] Dec, [facility] [id number], [place] [address] Dec, [facility] [id number] [address] Nov, [facility] [id number], [place] [address] Nov, [facility] [id number], [place] [address] Nov, [facility] [id number], [place] [address] Nov, [facility] [id number], [place] [address] Nov, [facility] [id number], [place] [address] Nov, [facility] [id number], [place] [address] 11 Nov, 2014 [facility] [place] [facility] [address] [facility] [id number] [place] [address] Nov, [facility] [place] [facility] [address] [facility] [id number] [place] [address] Nov, [facility] [place] [facility] [address] [facility] [id number] [place] [address]- [address] Nov, [facility] [place] [facility] [address] [facility] [id number] [place] [address]- [address] 10 Nov, 2014 [facility] [place] [facility] [address] [facility] [id number] [place] [address]- [address] Nov, [facility] [place] [facility] [address] [facility] [id number] [place] [address] Nov, [facility] [place] [facility] [id number] [place] [address] Nov, [facility] [place] [facility] [address] [facility] [id number] [place] [address]- [address] 24 Oct, 2014 [facility] [place] [facility] [id number] [place] [address] Oct, 2014 [facility] [place] [facility] [id number] [place] [address] Oct, 2014 [facility] [place] [facility] [id number] [place] [address] 24 Oct, 2014 [facility] [place] [facility] [address] [facility] [id number], [place] [address] Oct, 2014 [facility] [place] [facility] [address] [facility] [facility] [id number] [place] [address] Oct, 2014 [facility] [place] [facility] [address] [facility] [id number], [place] [address] 13 Oct, 2014 [facility] [place] [facility] [id number] [place] [address] 13 Oct, 2014 [facility] [place] [facility] [address] [id number] [place] [address] 7346 Oct, [facility] [place] [facility] [address] [id number] [place] [address]- 2988 Oct, [facility] [place] [facility] [address] [id number] [place] [address]- 8311 Oct, [facility] [place] [facility] [address] [id number] [place] [address]- 9660 Oct, [facility] [place] [facility] [address] [id number] [place] [address]- 5317 Sep, [facility] [place] [facility] [address] [id number] [place] [address]- 4790 Sep, [facility] [place] [facility] [address] [id number] [place] [address]- 7320 Sep, [facility] [place] [facility] [address] [id number] [place] [address]- 8337 Sep, [facility] [place] [facility] [address] [id number] [place] [address]- 7638 Sep, [facility] [place] [facility] [address] [facility] [id number] [place] [address]- 2524 Sep, [facility] [place] [facility] [address] [id number], [place] [address] Sep, [facility] [place] [facility] [address] [id number], [place] [address]- 0715 Sep, [facility] [place] [facility] [address] [id number] [place] [address]- 1364 Aug, [facility] [place] [facility] [address] [id number] [place] [address]- 3409 Aug, [facility] [place] [facility] [address] [id number] [place] [address]- 4452 Aug, [facility] [place] [facility] [address] [id number] [place] [address]- 9031 Aug, [facility] [place] [facility] [address] [id number] [place] [address]- 6668 Aug, [facility] [place] [facility] [address] [id number] [place] [address]- 2046 Aug, [facility] [place] [facility] [address] [id number] [place] [address] Aug, [facility] [place] [facility] [address] [id number] [place] [address]- 7629 Aug, [facility] [place] [facility] [address] [id number] [place] [address]- 4356 Aug, [facility] [place] [facility] [address] [id number] [place] [address]- 9681 Aug, [facility] [place] [facility] [address] [id number] [place] [address]- 0349 Aug, [facility] [place] [facility] [address] [id number] [place] [address]- 6655 Aug, [facility] [place] [facility] [address] [id number] [place] [address]- 9843 Aug, [facility] [place] [facility] [address] [facility] [id number] [place] [address]- 2410 Aug, [facility] [place] [facility] [address] [id number] [place] [address]- 5197 Jul, [facility] [place] [facility] [address] [id number] [place] [address]- 4859 Jul, [facility] [place] [facility] [address] [id number] [place] [address]- 1679 Jul, [facility] [place] [facility] [address] [id number] [place] [address]- 1739 Jul, [facility] [place] [facility] [address] [id number] [place] [address]- 1563 Jul, [facility] [place] [facility] [address] [id number] [place] [address]- 0148 Jul, [facility] [place] [facility] [address] [id number] [place] [address]- 8223 Jul, [facility] [place] [facility] [address] [id number] [place] [address]- 4427 Jul, [facility] [place] [facility] [address] [id number] [place] [address]- 2316 Jul, [facility] [place] [facility] [address] [id number] [place] [address]- 4834 Jul, [facility] [place] [facility] [address] [id number] [place] [address]- 7157 Jul, [facility] [place] [facility] [address] [id number] [place] [address]- 7455 Jul, [facility] [place] [facility] [address] [id number] [place] [address]- 3859 16 Jun, 2014 [facility] [place] [facility] [address] [id number] [place] [address]- 4954 16 Jun, 2014 [facility] [place] [facility] [address] [id number] [place] [address]- 3938 15 Jun, 2014 [facility] [place] [facility] [address] [id number] [place] [address]- 2003 14 Jun, 2014 [facility] [place] [facility] [address] [id number] [place] [address]- 8699 14 Jun, 2014 [facility] [place] [facility] [address] [id number] [place] [address]- 2509 14 Jun, 2014 [facility] [place] [facility] [address] [id number] [place] [address]- 2717 14 Jun, 2014 [facility] [place] [facility] [address] [id number] [place] [address]- 4640 13 Jun, 2014 [facility] [place] [facility] [address] [id number] [place] [address]- 3429 Jun, [facility] [place] [facility] [address] [id number] [place] [address]- 3628 Jun, [facility] [place] [facility] [address] [id number] [place] [address]- 2093 Jun, [facility] [place] [facility] [address] [id number] [place] [address]- 7430 Jun, [facility] [place] [facility] [address] [id number] [place] [address]- 8043 Jun, [facility] [place] [facility] [address] [id number] [place] [address]- 9310 Jun, [facility] [place] [facility] [address] [id number] [place] [address]- 9284 16 May, 2014 [facility] [place] [facility] [address] [id number] [place] [address]- 1087 15 May, 2014 [facility] [place] [facility] [address] [id number] [place] [address]- 0671 15 May, 2014 [facility] [place] [facility] [address] [id number] [place] [address]- 4864 15 May, 2014 [facility] [place] [facility] [address] [id number] [place] [address]- 6314 15 May, 2014 [facility] [place] [facility] [address] [id number], [place] [address]- 9853 15 May, 2014 [facility] [place] [facility] [address] [id number], [place] [address]- 2544 15 May, 2013 [facility] [place] [facility] [address] [id number] [place] [address]- 254 12 May, 2014 [facility] [place] [facility] [address] [id number] [place] [address]- 2541 12 May, 2013 [facility] [place] [facility] [address] [id number] [place] [address]- 2544 10 May, 2013 [facility] [place] [facility] [address] [id number] [place] [address]- 4008 10 May, 2014 [facility] [place] [facility] [address] [id number] [place] [address]- 4157 May, [facility] [place] [facility] [address] [id number] [place] [address]- 9196 May, [facility] [place] [facility] [address] [id number] [place] [address]- 9279 May, [facility] [place] [facility] [address] [id number] [place] [address]- 1537 May, [facility] [place] [facility] [address] [id number] [place] [address]- 0992 Apr, [facility] [place] [facility] [address] [id number] [place] [address]- 5864 Apr, [facility] [place] [facility] [address] [id number] [place] [address]- 1472 Apr, [facility] [place] [facility] [address] [id number] [place] [address]- 4833 Apr, [facility] [place] [facility] [address] [id number] [place] [address]- 5396 Apr, [facility] [place] [facility] [address] [id number] [place] [address]- 3857 Apr, [facility] [place] [facility] [address] [id number] [place] [address]- 9315 Apr, [facility] [place] [facility] [address] [id number] [place] [address]- 2869 Apr, [facility] [place] [facility] [address] [id number] [place] [address]- 5078 Apr, [facility] [place] [facility] [address] [id number] [place] [address]- 9461 Mar, [facility] [place] [facility] [address] [id number] [place] [address]- 8893 Mar, [facility] [place] [facility] [address] [id number] [place] [address]- 3499 Mar, 2013 [facility] [place] [facility] [address] [id number] [place] [address]- 4225 Mar, 2013 [facility] [place] [facility] [address] [id number] [place] [address]- 6217 Mar, 2013 [facility] [place] [facility] [address] [id number] [place] [address]- 1585 Mar, 2013 [facility] [place] [facility] [address] [id number] [place] [address]- 3353 Mar, 2013 [facility] [place] [facility] [address] [id number] [place] [address]- 3484 Mar, 2013 [facility] [place] [facility] [address] [id number] [place] [address]- 8162 Mar, 2013 [facility] [place] [facility] [address] [id number] [place] [address]- 3623 Mar, 2013 [facility] [place] [facility] [address] [id number] [place] [address]- 5074 Mar, 2013 [facility] [place] [facility] [address] [id number] [place] [address]- 4060 Mar, 2013 [facility] [place] [facility] [address] [id number] [place] [address]- 3179 Mar, 2013 [facility] [place] [facility] [address] [id number] [place] [address]- 6229 Mar, 2013 [facility] [place] [facility] [address] [id number] [place] [address]- 8619 Mar, 2013 [facility] [place] [facility] [address] [id number] [place] [address]- 6575 Mar, 2013 [facility] [place] [facility] [address] [id number] [place] [address]- 7989 Mar, 2013 [facility] [place] [facility] [address] [id number], [place] [address]- 2632 Mar, [facility] [place] [facility] [address] [id number] [place] [address]- 3470 Feb, [facility] [place] [facility] [address] [id number] [place] [address]- 0713 Feb, [facility] [place] [facility] [address] [id number] [place] [address]- 0790 Feb, [facility] [place] [facility] [address] [id number] [place] [address]- 8357 Feb, [facility] [place] [facility] [address] [id number] [place] [address]- 1159 Feb, [facility] [place] [facility] [address] [id number] [place] [address]- 9506 Feb, [facility] [place] [facility] [address] [id number] [place] [address]- 4794 Feb, [facility] [place] [facility] [address] [id number] [place] [address]- 9359 Feb, [facility] [place] [facility] [address] [id number] [place] [address]- 3520 Feb, [facility] [place] [facility] [address] [facility] [id number] [place] [address]- 4627 Feb, [facility] [place] [facility] [address] [id number] [place] [address]- 5209 January, [facility] [place] [facility] [address] [id number] [place] [address]- 2321 January, [facility] [place] [facility] [address] [id number] [place] [address]- 0466 January, [facility] [place] [facility] [address] [id number] [place] [address]- 7758 January, [facility] [place] [facility] [address] [id number] [place] [address]- 8229 January, [facility] [place] [facility] [address] [id number] [place] [address]- 5716 January, [facility] [place] [facility] [address] [id number] [place] [address]- 0589 January, [facility] [place] [facility] [address] [id number] [place] [address]- 0894 January, [facility] [place] [facility] [address] [id number] [place] [address]- 4294 January, [facility] [place] [facility] [address] [id number] [place] [address]- 7530 January, [facility] [place] [facility] [address] [id number] [place] [address]- 6519 January, [facility] [place] [facility] [address] [id number] [place] [address]- 7533 January, [facility] [place] [facility] [address] [id number] [place] [address]- 8932 January, [facility] [place] [facility] [address] [id number] [place] [address]- 3397 January, [facility] [place] [facility] [address] [id number] [place] [address]- 8120 January, [facility] [place] [facility] [address] [id number] [place] [address]- 6611 Dec, [facility] [place] [facility] [address] [id number] [place] [address]- 2627 Dec, [facility] [place] [facility] [address] [id number] [place] [address]- 8858 Dec, [facility] [place] [facility] [address] [id number] [place] [address]- 4345 Dec, [facility] [place] [facility] [address] [id number] [place] [address]- 4972 Dec, [facility] [place] [facility] [address] [id number] [place] [address]- 0695 Dec, [facility] [place] [facility] [address] [id number] [place] [address]- 0333 Nov, [facility] [place] [facility] [address] [id number] [place] [address]- 0033 Nov, [facility] [place] [facility] [address] [facility] [id number] [place] [address]- 0326 Nov, [facility] [place] [facility] [address] [id number] [place] [address]- 2341 Nov, [facility] [place] [facility] [address] [id number] [place] [address]- 7688 Nov, [facility] [place] [facility] [address] [id number] [place] [address]- 1116 Oct, [facility] [place] [facility] [address] [facility] [id number] [place] [address]- 4433 Oct, [facility] [place] [facility] [address] [id number] [place] [address]- 3743 Oct, [facility] [place] [facility] [address] [facility] [id number] [place] [address]- 9346 Oct, [facility] [place] [facility] [address] [facility] [id number] [place] [address]- 2798 Oct, [facility] [place] [facility] [address] [facility] [id number] [place] [address]- 8681 Oct, [facility] [place] [facility] [address] [facility] [id number] [place] [address]- 7382 Oct, [facility] [place] [facility] [address] [facility] [id number] [place] [address]- 8082 Oct, [facility] [place] [facility] [address] [facility] [id number] [place] [address]- 9004 04 Oct, 2013 [facility] [place] [facility] [address] [facility] [id number] [place] [address]- 1904 Oct, [facility] [place] [facility] [address] [id number] [place] [address]- 3810 Oct, [facility] [place] [facility] [address] [id number] [place] [address]- 7250 Sep, [facility] [place] [facility] [address] [id number] [place] [address]- 3732 Sep, [facility] [place] [facility] [address] [id number] [place] [address]- 8385 Sep, [facility] [place] [facility] [address] [id number] [place] [address]- 5343 Sep, [facility] [place] [facility] [address] [id number] [place] [address]- 3937 Aug, [facility] [place] [facility] [address] [id number] [place] [address]- 1642 Aug, [facility] [place] [facility] [address] [id number] [place] [address]- 3947 Jul, [facility] [place] [facility] [address] [id number] [place] [address]- 5024 Jul, [facility] [place] [facility] [address] [id number] [place] [address]- 6451 Jul, [facility] [place] [facility] [address] [id number] [place] [address]- 4552 Jul, [facility] [place] [facility] [address] [id number] [place] [address]- 7914 Jul, [facility] [place] [facility] [address] [id number] [place] [address]- 6125 Jun, [facility] [place] [facility] [address] [id number] [place] [address]- 6978 Jun, [facility] [place] [facility] [address] [id number] [place] [address]- 0834 May, [facility] [place] [facility] [address] [id number], [place] [address]- 1646 Mar, [facility] [address] [id number], [place] [address]- 6763 Mar, [facility] [id number], [place] [address]- 4206 Mar, [facility] [id number], [place] [address]- 7455 Feb, [facility] [id number], [place] [address]- 4753 January, [facility] [id number], [place] [address]- 7951 Dec, [facility] [id number], [place] [address]- 5964 Nov, [facility] [id number], [place] [address]- 5594 Nov, [facility] [id number], [place] [address]- 3618 Nov, [facility] [id number], [place] [address]- 4384 Oct, [facility] [id number], [place] [address]- 8286 Oct, [facility] [address] [id number], [place] [address]- 0616 Oct, [facility] [address] [id number], [place] [address] 2546 Oct, [facility] [address] [id number], [place] [address]- 1146 Sep, IMMUNIZATIONS No Known Immunizations SOCIAL HISTORY Never Assessed REASON FOR VISIT lymph nodes swollen-----DBennettRN PLAN OF CARE Activity Details Follow Up prn Reason: VITAL SIGNS Height 59 in 2017-12-04 Weight 190 lbs 2017-12-04 Temperature 98.6 degrees Fahrenheit 2017-12-04 Heart Rate 90 bpm 2017-12-04 Respiratory Rate 20 2017-12-04 BMI 38.37 kg/m2 2017-12-04 Blood pressure systolic 114 mmHg 2017-12-04 Blood pressure diastolic 88 mmHg 2017-12-04 MEDICATIONS Medication Instructions Dosage Frequency Start Date End Date Duration Status Levothyroxine Sodium 200 MCG Orally Once a day 1 tablet 24h 30 Active Lisinopril 20 MG TAKE ONE TABLET BY MOUTH ONCE DAILY 30 Active Levothyroxine Sodium 25 MCG Orally Once a day 1 tablet on an empty stomach in the morning 24h Jun, 30 day(s) Active Guanfacine HCl 2 MG TAKE ONE-HALF TABLET BY MOUTH ONCE DAILY AM; ONE-HALF TABLET AT 2:00PM AND ONE TABLET AT BEDTIME 30 Active Tizanidine HCl 4 MG Orally Three times a day 1 tablet as needed 8h Nov, Active Norvasc 5 MG Orally Once a day 1 tablet 24h 22 May, 2017 30 day(s) Active Latuda 40 mg Orally Once a day 1 tablet with food 24h Jul, 90 days Active Maxalt 10 MG Orally Once a day 1 tablet as needed 24h 30 days Active Trazodone HCl 100 mg Orally for sleep 1 tablet at bedtime Jul, Active Amitriptyline HCl 25 MG TAKE ONE [...]
--- OUTSIDE RECORDS SUMMARY | 2018-09-23 22:13 | XMS REPORT ---
Author Author BALJIT OSEI Organization [facility] Address [address] [place] [address] Care Team Providers Care Registered Public Surveyor Name Role Phone BALJIT OSEI Unavailable PROBLEMS Type Condition ICD9-CM Code ERQ15-XG Code Onset Dates Condition Status SNOMED Code Problem Acne L70.9 Active 03323540 Problem Sciatica of right side M54.31 Active 65464980 Problem Panic disorder [episodic paroxysmal anxiety] without agoraphobia F41.0 Active 22149321 Problem Attention-deficit hyperactivity disorder, predominantly inattentive type F90.0 Active 19349236 Problem Current nonadherence to medical treatment Z91.19 Active 0486929 Problem Acquired hypothyroidism E03.9 Active 612930066 Problem Essential hypertension I10 Active 02909245 Problem Primary insomnia F51.01 Active 4018656 Problem Migraine with aura and without status migrainosus, not intractable G43.109 Active 2635482 Problem Abnormal liver function K76.89 Active 04405260 Problem Obesity E66.9 Active 244832729 Problem Bipolar 2 disorder F31.81 Active 25470953 Problem Postoperative hypothyroidism E89.0 Active 61011553 Problem Generalized anxiety disorder F41.1 Active [id number] ALLERGIES No Information ENCOUNTERS Encounter Location Date Diagnosis [facility] [address], [place] [address] Nov, Normal physical exam Z00.00 and Enlarged lymph node R59.9 [facility] [address], [place] [address] Nov, Enlarged lymph node R59.9 ; Abnormal liver function K76.89 and Hypothyroid E03.9 [facility] [id number], [place] [address] 8789 Oct, Bipolar 2 disorder F31.81 [place] [id number] [place] [address] 68779- 0066 28 Oct, 2017 Sciatica of right side M54.31 and Essential hypertension I10 [facility] [id number] [place] [address] 38602- 3484 Oct, [facility] [id number] [place] [address] 81175- 8932 Aug, Hypothyroid E03.9 [place] [id number] [place] [address] 41250- 3414 Aug, [place] [id number] [place] [address] 07684- 1323 Aug, Bipolar 2 disorder F31.81 [place] [id number] [place] [address] 41598- 7557 Aug, Abnormal liver function K76.89 [place] [id number] [place] [address] 02884- 5024 Jul, Bipolar 2 disorder F31.81 [facility] [id number] [place] [address] 25382 -6173 Jul, [id number] [place] [address] 38573- 7437 Jul, Bipolar 2 disorder F31.81 ; Generalized anxiety disorder F41.1 ; Attention-deficit hyperactivity disorder, predominantly inattentive type F90.0 and Current nonadherence to medical treatment Z91.19 [facility] [id number] [place] [address] 48269 -5059 14 Jul, 2017 Essential hypertension I10 ; Other viral agents as the cause of diseases classified elsewhere B97.89 ; Acute upper respiratory infection, unspecified J06.9 and BMI 40.0-44.9, adult Z68.41 [facility] [id number] [place] [address] 61318- 7539 13 Jul, 2017 [place] [id number] [place] [address] 55620- 0891 Jul, [facility] [id number] [place] [address] 87794- 7201 Jun, [facility] [id number] [place] [address] 62092- 8654 Jun, [facility] [id number] [place] [address] 67134- 3446 Jun, Dysuria R30.0 ; Urinary tract infection, site not specified N39.0 ; Hematuria, unspecified R31.9 ; Sciatica of right side M54.31 ; Migraine with aura and without status migrainosus, not intractable G43.109 ; Primary insomnia F51.01 ; Essential hypertension I10 and Acquired hypothyroidism E03.9 [facility] [id number] [place] [address] 61859- 8575 Jun, Bipolar 2 disorder F31.81 [place] [id number] [place] [address] 37979- 7840 Jun, Bipolar 2 disorder F31.81 [place] [id number] [place] [address] 24812- 7761 May, Sore throat J02.9 ; Acute serous otitis media of left ear, recurrence not specified H65.02 and Hypertension I10 [place] [id number] [place] [address] 26600- 4844 May, Bipolar 2 disorder F31.81 [facility] [id number] [place] [address] 62220- 5377 Apr, [facility] [id number] [place] [address] 34618- 4289 Apr, Bipolar 2 disorder F31.81 [facility] [id number] [place] [address] 63792- 0767 Mar, [facility] [id number] [place] [address] 11416- 7501 Feb, Bipolar 2 disorder F31.81 ; Attention deficit disorder F90.0 ; COLLEEN (generalized anxiety disorder) F41.1 and Panic disorder [episodic paroxysmal anxiety] without agoraphobia F41.0 [facility] [address], [place] [address] 0133 January, Bipolar 2 disorder F31.81 [facility] [address], [place] [address]- 5046 Dec, [facility] [id number] [place] [address] 70085- 5732 Dec, [facility] [id number] [place] [address] 80168- 5963 Dec, [facility] [id number] [place] [address] 29639- 4864 Dec, Generalized anxiety disorder F41.1 ; Bipolar 2 disorder F31.81 and Panic disorder [episodic paroxysmal anxiety] without agoraphobia F41.0 [facility] [id number] [place] [address] 70809- 2334 Dec, [facility] [address], [place] [address]- 8917 Dec, [facility] [id number] [place] [address] 95016- 8447 Nov, [facility] [address], [place] [address]- 5836 Nov, [facility] [id number] [address]- 8106 Nov, [facility] [address], [place] [address]- 6267 Oct, [facility] [id number] [address]- 9048 Oct, [facility] [address], [place] [address]- 5617 Oct, [facility] [id number] [address]- 8858 Oct, [facility] [id number] [place] [address] 99551- 1602 Oct, [facility] [id number] [place] [address] 27420- 3458 Sep, Bipolar 2 disorder F31.81 ; COLLEEN (generalized anxiety disorder) F41.1 ; Attention deficit disorder F90.0 and Panic disorder [episodic paroxysmal anxiety] without agoraphobia F41.0 [facility] [id number] [place] [address] 30579- 2391 Sep, [facility] [id number] [place] [address] 66081- 2576 Sep, [facility] [id number] [place] [address] 48654- 1368 Sep, [facility] [id number] [place] [address] 23867- 1319 Aug, [facility] [id number] [place] [address] 11530- 0343 Aug, [facility] [id number] [place] [address] 04444- 8768 Aug, [facility] [id number] [place] [address] 70217- 9849 Aug, [facility] [id number] [place] [address] 17645- 9759 Jul, [facility] [id number] [place] [address] 77947- 8310 Jul, [facility] [id number] [place] [address] 07935- 2980 Jul, [facility] [id number] [place] [address] 12421- 7697 Jun, [facility] [id number] [place] [address] 22586- 8881 Jun, Bipolar 2 disorder F31.81 ; Attention deficit disorder F90.0 ; COLLEEN (generalized anxiety disorder) F41.1 and Panic disorder [episodic paroxysmal anxiety] without agoraphobia F41.0 [facility] [id number] [place] [address] 50667- 4661 Jun, [facility] [address] 16889- 3074 Jun, [facility] [address] 48092- 4696 Jun, Right foot pain M79.671 and Nausea and vomiting in adult R11.2 [facility] [address] 59373- 4686 May, [facility] [address] 84699- 3802 May, Other sinusitis, unspecified chronicity J32.9 ; Environmental allergies Z91.09 ; Other chronic pain G89.29 and Sacrococcygeal disorders, not elsewhere classified M53.3 [facility] [id number] [place] [address] 79943 -3423 May, Acute non-recurrent pansinusitis J01.40 and Gastroenteritis K52.9 [facility] [id number] [place] [address] 39416- 4232 May, [facility] [address] 04580- 4227 May, [facility] [id number] [place] [address] 45134- 9613 Apr, Bronchitis J40 [facility] [address] 81642- 2364 Apr, [facility] [address] 59320- 3431 Apr, [facility] [address] [place] [address]- 7116 Apr, [facility] [address], [place] [address] -5539 Apr, Nausea and vomiting in adult R11.2 [facility] [address], [place] [address]- 0662 Apr, Nausea and vomiting in adult R11.2 [facility] [id number] [place] [address] 02974- 8194 Apr, Bipolar 2 disorder F31.81 ; Generalized anxiety disorder F41.1 ; Panic disorder [episodic paroxysmal anxiety] without agoraphobia F41.0 ; Attention deficit disorder F90.0 and COLLEEN (generalized anxiety disorder) F41.1 [facility] [address], [place] [address]- 2947 Apr, [facility] [id number] [place] [address] 90728- 9374 Mar, [facility] [address], [place] [address]- 7525 Mar, [facility] [id number] [place] [address] 03492- 4791 Mar, [facility] [address], [place] [address]- 2357 Mar, Bipolar 2 disorder F31.81 ; Attention deficit disorder F90.0 ; COLLEEN (generalized anxiety disorder) F41.1 and Panic disorder [episodic paroxysmal anxiety] without agoraphobia F41.0 [facility] [address], [place] [address]- 8212 Mar, [facility] [address], [place] [address]- 2760 Feb, Bipolar 2 disorder F31.81 ; Generalized anxiety disorder F41.1 and Attention deficit disorder F90.0 [facility] [address], [place] [address]- 0650 Feb, Generalized anxiety disorder F41.1 [facility] [address], [place] [address]- 5392 Feb, Generalized anxiety disorder F41.1 ; Attention deficit disorder F90.0 and Bipolar 2 disorder F31.81 [facility] [address], [place] [address]- 2536 Feb, Bipolar 2 disorder F31.81 ; Generalized anxiety disorder F41.1 ; Attention deficit disorder F90.0 and Insomnia, unspecified type G47.00 [facility] [address] [place] [address] 02641- 2712 Feb, Excessive sweating R61 and Breast lump in upper outer quadrant N63 [facility] [address] [place] [address] 94594 -5786 January, Low back pain M54.5 ; Other chronic pain G89.29 and Urinary tract infection, site unspecified N39.0 [facility] [id number] [place] [address] 06706- 2170 January, Bipolar II disorder F31.81 [facility] [id number] [place] [address] 67707- 2647 January, [facility] [id number] [place] [address] 34795- 7722 January, Insomnia, unspecified type G47.00 and Grief F43.20 [facility] [id number] [place] [address] 47267- 1968 January, [facility] [id number] [place] [address] 41353- 0794 Dec, [facility] [id number] [place] [address] 49048- 9762 Dec, [facility] [id number] [place] [address] 14664- 9955 Dec, Bipolar 2 disorder F31.81 ; Generalized anxiety disorder F41.1 and Attention deficit disorder F90.0 [facility] [address] 44819- 9247 21 Dec, 2015 Sinusitis J32.9 [facility] [address] 22913- 5533 14 Dec, 2015 Sinusitis J32.9 and Hypothyroid E03.9 [facility] [address] 00732- 7383 Dec, [facility] [address] 56294 -8345 11 Dec, 2015 Cough R05 and Allergic rhinitis J30.9 [facility] [address] 74716- 0283 Nov, Hypertension I10 ; Obesity E66.9 and Acne L70.9 [facility] [address] 28371- 7376 Nov, [facility] [address] 43467- 5549 Oct, [facility] [address] 44418- 3234 Oct, [facility] [address] 65895- 5261 Oct, [facility] [address] 78655- 5758 Oct, [facility] [address] 76341- 7835 Sep, Lymphadenitis I88.9 ; Essential hypertension I10 and Acne, unspecified acne type L70.9 [facility] [id number] [place] [address] 73628- 1703 Sep, [facility] [address] 37594- 3234 Sep, [place] [address], [place] [address]- 6838 Sep, [facility] [id number] [place] [address] 95711- 1761 Sep, Acquired hypothyroidism E03.9 [facility] [id number] [place] [address] 24761- 6068 Aug, Acquired hypothyroidism E03.9 [facility] [id number] [place] [address] 81526- 4033 Aug, Furuncle L02.92 [facility] [id number] [place] [address] 77639- 3279 Aug, [facility] [id number] [place] [address] 13011- 7043 Aug, Bipolar 2 disorder F31.81 ; Generalized anxiety disorder F41.1 ; Attention deficit disorder F90.0 and Obesity E66.9 [facility] [id number] [place] [address] 65307- 2061 Aug, [facility] [id number] [place] [address] 53566- 1211 Aug, [facility] [id number] [place] [address] 21806- 1768 Aug, Acquired hypothyroidism E03.9 [facility] [id number] [place] [address] 43491- 2081 Jul, Acquired hypothyroidism E03.9 ; Upper respiratory tract infection, unspecified type J06.9 and Nonintractable migraine, unspecified migraine type G43.009 [facility] [id number] [place] [address] 12973- 6782 14 Jun, 2015 Acute pharyngitis, unspecified J02.9 [facility] [id number] [place] [address] 44257- 8272 24 May, 2015 Bipolar II disorder 296.89 ; Attention deficit disorder of childhood without mention of hyperactivity 314.00 ; Generalized anxiety disorder 300.02 and Morbid obesity with BMI of 45.0-49.9, adult 278.01 [facility] [address], [place] [address]- 5106 May, Sinusitis 473.9 [facility] [id number] [address]- 5396 Apr, [facility] [id number] [place] [address] 11074- 1696 Mar, [facility] [id number] [place] [address] 24683- 9781 Mar, Bipolar II disorder 296.89 ; Generalized anxiety disorder 300.02 ; Obesity, unspecified 278.00 and Attention deficit disorder 314.00 [facility] [id number] [address]- 3896 Feb, [facility] [id number] [place] [address] 17898- 2656 January, [facility] [id number] [place] [address] 51979- 1519 January, [facility] [id number] [place] [address] 48182- 3036 January, [facility] [address], [place] [address]- 7696 January, [facility] [address], [place] [address]- 6636 Dec, [facility] [address], [place] [address]- 8003 Dec, [facility] [id number] [place] [address] 64599 2546 Nov, [facility] [address], [place] [address]- 2546 Nov, [facility] [id number] [place] [address] 14225- 8064 Nov, [facility] [place] [facility] [address] [id number] [place] [address]- 8418 Nov, [facility] [place] [facility] [address] [id number] [place] [address]- 0001 Nov, [facility] [place] [facility] [address] [id number] [place] [address]- 6426 Nov, [facility] [place] [facility] [address] [id number] [place] [address]- 9466 Nov, [facility] [place] [facility] [address] [id number] [place] [address]- 4544 Nov, [facility] [place] [facility] [address] [id number] [place] [address]- 3367 Nov, [facility] [place] [facility] [address] [id number] [place] [address]- 2600 Nov, [facility] [place] [facility] [address] [id number] [place] [address]- 2036 Nov, [facility] [place] [facility] [address] [id number] [place] [address]- 5684 Nov, [facility] [place] [facility] [address] [id number] [place] [address]- 2821 Nov, [facility] [place] [facility] [address] [id number] [place] [address]- 9784 Nov, [facility] [place] [facility] [address] [id number] [place] [address]- 7422 Oct, [facility] [place] [facility] [address] [id number] [place] [address]- 2263 Oct, [facility] [place] [facility] [address] [id number] [place] [address]- 1426 Oct, [facility] [place] [facility] [address] [id number] [place] [address]- 3941 Oct, [facility] [place] [facility] [address] [id number] [place] [address]- 0380 Oct, 2014 [facility] [place] [facility] [address] [id number] [place] [address]- 9831 Oct, 2014 [facility] [place] [facility] [address] [id number] [place] [address]- 5326 Oct, 2014 [facility] [place] [facility] [address] [id number] [place] [address]- 1786 Oct, 2014 [facility] [place] [facility] [address] [id number] [place] [address]- 0348 Oct, 2014 [facility] [place] [facility] [address] [id number] [place] [address]- 3071 Oct, 2014 [facility] [place] [facility] [address] [id number] [place] [address]- 3495 Oct, [facility] [place] [facility] [address] [id number] [place] [address]- 2666 Oct, [facility] [place] [facility] [address] [id number] [place] [address]- 2557 Sep, [facility] [place] [facility] [address] [facility] [id number] [place] [address]- 6751 Sep, [facility] [place] [facility] [address] [facility] [id number] [place] [address]- 4733 Sep, [facility] [place] [facility] [address] [id number] [place] [address]- 8695 Sep, [facility] [place] [facility] [address] [id number] [place] [address] Sep, [facility] [place] [facility] [address] [id number] [place] [address] Sep, [facility] [place] [facility] [address] [id number] [place] [address] Sep, [facility] [place] [facility] [address] [id number] [place] [address]- [address] Sep, [facility] [place] [facility] [address] [id number] [place] [address] Aug, [facility] [place] [facility] [address] [id number] [id number] [address] Aug, [facility] [place] [facility] [address] [id number] [id number] [address] Aug, [facility] [place] [facility] [address] [id number] [id number] [address] Aug, [facility] [place] [facility] [address] [id number] [place] [address] Aug, [facility] [place] [facility] [address] [id number] [place] [address]- 2016 Aug, [facility] [place] [facility] [address] [id number] [place] [address] Aug, [facility] [place] [facility] [address] [id number] [place] [address] Aug, [facility] [place] [facility] [address] [id number] [place] [address] Aug, [facility] [place] [facility] [address] [id number] [place] [address]- [address]55 Aug, [facility] [place] [facility] [address] [id number] [place] [address] 1366 Aug, [facility] [place] [facility] [address] [id number] [place] [address]- [address]75 Aug, [facility] [place] [facility] [address] [id number] [place] [address] Aug, [facility] [place] [facility] [address] [id number] [id number] [address] Aug, [facility] [place] [facility] [address] [id number] [place] [address] Jul, [facility] [place] [facility] [address] [id number] [place] [address] 13 Jul, 2014 [facility] [place] [facility] [address] [id number] [place] [address] Jul, [facility] [place] [facility] [address] [id number] [place] [address] Jul, [facility] [place] [facility] [address] [id number] [place] [address]- [address] Jul, [facility] [place] [facility] [address] [id number] [place] [address]- [address] Jul, [facility] [place] [facility] [address] [id number] [place] [address]- [address] Jul, [facility] [place] [facility] [address] [id number] [place] [address] Jul, [facility] [place] [facility] [address] [id number] [place] [address] Jul, [facility] [place] [facility] [address] [id number] [place] [address] Jul, [facility] [place] [facility] [address] [id number] [place] [address] Jul, [facility] [place] [facility] [address] [id number] [place] [address] Jul, [facility] [place] [facility] [address] [id number] [place] [address] 16 Jun, 2014 [facility] [place] [facility] [address] [id number] [place] [address] 16 Jun, 2014 [facility] [place] [facility] [address] [id number] [place] [address] 15 Jun, 2014 [facility] [place] [facility] [address] [id number] [place] [address] 14 Jun, 2014 [facility] [place] [facility] [address] [id number] [place] [address]- 2927 14 Jun, 2014 [facility] [place] [facility] [address] [id number] [place] [address]6 14 Jun, 2014 [facility] [place] [facility] [address] [id number] [place] [address] 6060 14 Jun, 2014 [facility] [place] [facility] [address] [id number] [place] [address]- 2645 13 Jun, 2014 [facility] [place] [facility] [address] [id number] [place] [address] 2197 10 Jun, 2014 [facility] [place] [facility] [address] [id number] [place] [address] 3686 10 Jun, 2014 [facility] [place] [facility] [address] [id number] [place] [address] 0096 09 Jun, 2014 [facility] [place] [facility] [address] [id number] [place] [address]- 2150 09 Jun, 2014 [facility] [place] [facility] [address] [id number] [place] [address] 2172 06 Jun, 2014 [facility] [place] [facility] [address] [id number] [place] [address] 9201 06 Jun, 2014 [facility] [place] [facility] [address] [id number] [place] [address]- 3123 16 May, 2014 [facility] [place] [facility] [address] [id number], [place] [address] 15 May, 2014 [facility] [place] [facility] [address] [id number], [place] [address]- 2409 15 May, 2013 [facility] [place] [facility] [address] [id number] [place] [address]- 5548 15 May, 2014 [facility] [place] [facility] [address] [id number] [place] [address]- 5710 15 May, 2014 [facility] [place] [facility] [address] [id number], [place] [address] 15 May, 2013 [facility] [place] [facility] [address] [id number], [place] [address] 3665 15 May, 2013 [facility] [place] [facility] [address] [id number] [place] [address]- 3434 12 May, 2013 [facility] [place] [facility] [address] [id number] [place] [address]- 7872 12 May, 2013 [facility] [place] [facility] [address] [id number] [place] [address]- 2782 10 May, 2013 [facility] [place] [facility] [address] [id number] [place] [address]- 8872 10 May, 2013 [facility] [place] [facility] [address] [id number] [place] [address]- 7259 May, [facility] [place] [facility] [address] [id number] [place] [address]- 7848 May, [facility] [place] [facility] [address] [id number] [place] [address]- 0392 May, [facility] [place] [facility] [address] [id number] [place] [address]- 4520 May, [facility] [place] [facility] [address] [id number] [place] [address]- 1789 Apr, [facility] [place] [facility] [address] [id number] [place] [address]- 5833 Apr, [facility] [place] [facility] [address] [id number] [place] [address]- 0683 Apr, [facility] [place] [facility] [address] [id number] [place] [address]- 4409 Apr, [facility] [place] [facility] [address] [id number] [place] [address]- 3666 Apr, [facility] [place] [facility] [address] [id number] [place] [address]- 4084 Apr, [facility] [place] [facility] [address] [id number] [place] [address]- 4339 Apr, [facility] [place] [facility] [address] [id number] [place] [address]- 0320 Apr, [facility] [place] [facility] [address] [id number] [place] [address]- 7708 Apr, [facility] [place] [facility] [address] [id number] [place] [address]- 0567 Mar, [facility] [place] [facility] [address] [id number] [place] [address]- 6506 Mar, [facility] [place] [facility] [address] [id number] [place] [address]- 9599 Mar, [facility] [place] [facility] [address] [id number] [place] [address]- 7580 Mar, [facility] [place] [facility] [address] [id number] [place] [address]- 9333 Mar, [facility] [place] [facility] [address] [id number] [place] [address]- 4012 Mar, [facility] [place] [facility] [address] [id number] [place] [address]- 1814 Mar, [facility] [place] [facility] [address] [id number] [place] [address] 2486 Mar, [facility] [place] [facility] [address] [id number] [place] [address]- 2832 Mar, [facility] [place] [facility] [address] [id number] [place] [address]- 6633 Mar, [facility] [place] [facility] [address] [id number] [place] [address]- 3011 Mar, [facility] [place] [facility] [address] [id number] [place] [address]- 3656 Mar, [facility] [place] [facility] [address] [id number] [place] [address]- 4826 Mar, [facility] [place] [facility] [address] [id number] [place] [address]- 1553 Mar, [facility] [place] [facility] [address] [id number] [place] [address]- 4367 Mar, [facility] [place] [facility] [address] [id number] [place] [address]- 9765 Mar, [facility] [place] [facility] [address] [id number] [place] [address]- 7461 Mar, [facility] [place] [facility] [address] [id number] [place] [address]- 5718 Mar, [facility] [place] [facility] [address] [id number] [place] [address]- 7966 Feb, [facility] [place] [facility] [address] [id number] [place] [address]- 3343 Feb, [facility] [place] [facility] [address] [id number] [place] [address]- 7078 Feb, [facility] [place] [facility] [address] [id number] [place] [address]- 0628 Feb, [facility] [place] [facility] [address] [id number] [place] [address]- 3611 Feb, [facility] [place] [facility] [address] [id number] [place] [address]- 1706 Feb, [facility] [place] [facility] [address] [id number] [place] [address]- 6277 Feb, [facility] [place] [facility] [address] [id number], [place] [address] 6580 Feb, [facility] [place] [facility] [address] [id number] [place] [address]- 3829 Feb, [facility] [place] [facility] [address] [id number] [place] [address]- 7756 Feb, [facility] [place] [facility] [address] [id number] [place] [address]- 4615 January, [facility] [place] [facility] [address] [id number] [place] [address]- 7605 January, [facility] [address] [id number] [place] [address]- 5560 January, [facility] [place] [facility] [address] [id number] [place] [address]- 0416 January, [facility] [place] [facility] [address] [id number] [place] [address]- 9236 January, [facility] [place] [facility] [address] [id number] [place] [address]- 7884 January, [facility] [place] [facility] [address] [id number] [place] [address]- 3751 January, [facility] [place] [facility] [address] [id number] [place] [address]- 7411 January, [facility] [address] [id number] [place] [address]- 4706 January, [facility] [place] [facility] [address] [id number] [place] [address]- 8388 January, [facility] [place] [facility] [address] [id number] [place] [address]- 5417 January, [facility] [place] [facility] [address] [id number] [place] [address]- 5945 January, [facility] [place] [facility] [address] [id number] [place] [address]- 3495 January, [facility] [place] [facility] [address] [id number] [place] [address]- 6603 January, [facility] [place] [facility] [address] [id number] [place] [address]- 2058 January, [facility] [place] [facility] [address] [id number] [place] [address]- 3527 Dec, [facility] [place] [facility] [address] [id number] [place] [address]- 4036 Dec, [facility] [place] [facility] [address] [id number] [place] [address]- 4079 Dec, [facility] [place] [facility] [address] [id number] [place] [address]- 7504 Dec, [facility] [place] [facility] [address] [id number] [place] [address]- 5781 Dec, [facility] [place] [facility] [address] [id number] [place] [address]- 2256 Dec, [facility] [place] [facility] [address] [id number] [place] [address]- 9292 Nov, [facility] [place] [facility] [address] [id number] [place] [address]- 7470 Nov, [facility] [place] [facility] [address] [id number] [place] [address]- 5364 Nov, [facility] [place] [facility] [address] [id number] [place] [address]- 0733 Nov, [facility] [place] [facility] [address] [id number] [place] [address]- 2888 Nov, [facility] [place] [facility] [address] [id number] [place] [address]- 8042 Oct, [facility] [place] [facility] [address] [id number] [place] [address]- 5989 Oct, [facility] [place] [facility] [address] [id number] [place] [address]- 7261 Oct, [facility] [place] [facility] [address] [id number] [place] [address]- 1596 Oct, [facility] [place] [facility] [address] [id number] [place] [address]- 8304 10 Oct, 2013 [facility] [place] [facility] [address] [id number] [place] [address]- 7875 06 Oct, 2013 [facility] [place] [facility] [address] [id number] [place] [address]- 4913 06 Oct, 2013 [facility] [place] [facility] [address] [id number] [place] [address]- 4679 04 Oct, 2013 [facility] [place] [facility] [address] [id number] [place] [address]- 2857 Oct, [facility] [place] [facility] [address] [id number] [place] [address]- 1326 Oct, [facility] [place] [facility] [address] [id number] [place] [address]- 6452 Oct, [facility] [place] [facility] [address] [id number] [place] [address]- 5009 Sep, [facility] [place] [facility] [address] [id number] [place] [address]- 6942 Sep, [facility] [place] [facility] [address] [id number] [place] [address]- 5264 Sep, [facility] [place] [facility] [address] [id number] [place] [address]- 0663 Sep, [facility] [place] [facility] [address] [id number] [place] [address]- 5747 Aug, [facility] [place] [facility] [address] [id number] [place] [address]- 7000 Aug, [facility] [place] [facility] [address] [id number] [place] [address]- 5107 Jul, [facility] [place] [facility] [address] [id number] [place] [address]- 4579 Jul, [facility] [place] [facility] [address] [id number] [place] [address]- 6783 Jul, [facility] [place] [facility] [address] [id number] [place] [address]- 2398 Jul, [facility] [place] [facility] [address] [id number] [place] [address]- 3030 Jul, [facility] [place] [facility] [address] [id number] [place] [address]- 2891 Jun, [facility] [address] [id number] [place] [address]- 3255 Jun, [facility] [address] [id number] [place] [address]- 1304 May, [facility] [place] [facility] [address] [id number] [place] [address]- 5573 Mar, [facility] [address] [id number] [place] [address]- 6216 Mar, [facility] [place] [facility] [address] [id number] [place] [address]- 2546 Mar, [facility] [address] [id number] [place] [address]- 7697 Feb, [facility] [address] [id number] [place] [address]- 1746 January, [facility] [address] [id number] [place] [address]- 1985 Dec, [facility] [address] [id number] [place] [address]- 5266 Nov, [facility] [place] [facility] [address] [id number] [place] [address]- 2541 Nov, [facility] [place] [facility] [address] [id number], [place] [address]- 2549 Nov, [facility] [place] [facility] [address] [id number] [place] [address]- 2540 Oct, [facility] [place] [facility] [address] [id number] [place] [address]- 2546 Oct, [facility] [place] [facility] [address] [id number] [place] [address]- 2546 Oct, [facility] [place] [facility] [address] [id number], [place] [address]- 9446 Oct, [facility] [address] [facility] [id number] [place] [address]- 5746 Sep, IMMUNIZATIONS No Known Immunizations SOCIAL HISTORY Never Assessed REASON FOR VISIT Requests return call/LVM PLAN OF CARE VITAL SIGNS MEDICATIONS No [...]
--- OUTSIDE RECORDS SUMMARY | 2018-09-23 22:14 | XMS REPORT ---
Author Author BALJIT OSEI Organization [facility] Address [address] [place] [address] Care Team Providers Care Shrinker Name Role Phone BALJIT OSEI Unavailable PROBLEMS Type Condition ICD9-CM Code BXQ21-NE Code Onset Dates Condition Status SNOMED Code Problem Acne L70.9 Active 15974101 Problem Sciatica of right side M54.31 Active 13728487 Problem Panic disorder [episodic paroxysmal anxiety] without agoraphobia F41.0 Active 59878334 Problem Attention-deficit hyperactivity disorder, predominantly inattentive type F90.0 Active 50545815 Problem Current nonadherence to medical treatment Z91.19 Active 2717432 Problem Acquired hypothyroidism E03.9 Active 853625836 Problem Essential hypertension I10 Active 63951323 Problem Primary insomnia F51.01 Active 0030236 Problem Migraine with aura and without status migrainosus, not intractable G43.109 Active 5104489 Problem Abnormal liver function K76.89 Active 46663524 Problem Obesity E66.9 Active 414046778 Problem Bipolar 2 disorder F31.81 Active 55936007 Problem Postoperative hypothyroidism E89.0 Active 74849193 Problem Generalized anxiety disorder F41.1 Active 87998460 ALLERGIES No Information ENCOUNTERS Encounter Location Date Diagnosis [facility] [address] [address] Nov, Normal physical exam Z00.00 and Enlarged lymph node R59.9 [facility] [address] [address] Nov, Enlarged lymph node R59.9 ; Abnormal liver function K76.89 and Hypothyroid E03.9 [facility] [id number] [address] 1602 Oct, Bipolar 2 disorder F31.81 [place] [id number] [place] [address] 99766- 1353 28 Oct, 2017 Sciatica of right side M54.31 and Essential hypertension I10 [facility] [id number] [place] [address] 46486- 0328 Oct, [facility] [id number] [place] [address] 81976- 3802 Aug, Hypothyroid E03.9 [place] [id number] [place] [address] 89551- 5981 Aug, [place] [id number] [place] [address] 69830- 0249 Aug, Bipolar 2 disorder F31.81 [place] [id number] [place] [address] 27334- 5543 Aug, Abnormal liver function K76.89 [place] [id number] [place] [address] 43081- 6512 Jul, Bipolar 2 disorder F31.81 [facility] [id number] [place] [address] 28287 -4359 Jul, [place] [id number] [place] [address] 57366- 9198 Jul, Bipolar 2 disorder F31.81 ; Generalized anxiety disorder F41.1 ; Attention-deficit hyperactivity disorder, predominantly inattentive type F90.0 and Current nonadherence to medical treatment Z91.19 [facility] [id number] [place] [address] 07919 -6926 14 Jul, 2017 Essential hypertension I10 ; Other viral agents as the cause of diseases classified elsewhere B97.89 ; Acute upper respiratory infection, unspecified J06.9 and BMI 40.0-44.9, adult Z68.41 [facility] [id number] [place] [address] 15679- 0392 13 Jul, 2017 [place] [id number] [place] [address] 12171- 4488 Jul, [facility] [id number] [place] [address] 82502- 6137 Jun, [facility] [id number] [place] [address] 18025- 5886 Jun, [facility] [id number] [place] [address] 43110- 7617 Jun, Dysuria R30.0 ; Urinary tract infection, site not specified N39.0 ; Hematuria, unspecified R31.9 ; Sciatica of right side M54.31 ; Migraine with aura and without status migrainosus, not intractable G43.109 ; Primary insomnia F51.01 ; Essential hypertension I10 and Acquired hypothyroidism E03.9 [facility] [id number] [place] [address] 76776- 0712 Jun, Bipolar 2 disorder F31.81 [place] [id number] [place] [address] 02840- 7344 Jun, Bipolar 2 disorder F31.81 [place] [id number] [place] [address] 32233- 5779 May, Sore throat J02.9 ; Acute serous otitis media of left ear, recurrence not specified H65.02 and Hypertension I10 [place] [id number] [place] [address] 51666- 0041 May, Bipolar 2 disorder F31.81 [facility] [id number] [place] [address] 99501- 0728 Apr, [facility] [id number] [place] [address] 43565- 9363 Apr, Bipolar 2 disorder F31.81 [facility] [id number] [place] [address] 43749- 9408 Mar, [facility] [id number] [place] [address] 30822- 1313 Feb, Bipolar 2 disorder F31.81 ; Attention deficit disorder F90.0 ; COLLEEN (generalized anxiety disorder) F41.1 and Panic disorder [episodic paroxysmal anxiety] without agoraphobia F41.0 [facility] [address] [address] 2822 January, Bipolar 2 disorder F31.81 [facility] [address] [address]- 1690 Dec, [facility] [id number] [place] [address] 15635- 2588 Dec, [facility] [id number] [place] [address] 55503- 1674 Dec, [facility] [id number] [place] [address] 25695- 9105 Dec, Generalized anxiety disorder F41.1 ; Bipolar 2 disorder F31.81 and Panic disorder [episodic paroxysmal anxiety] without agoraphobia F41.0 [facility] [id number] [place] [address] 85300- 4075 Dec, [facility] [address] [address]- 6417 Dec, [facility] [id number] [place] [address] 94714- 1132 Nov, [facility] [address] [address]- 7483 Nov, [facility] [id number] [address]- 9612 Nov, [facility] [address] [address]- 6944 Oct, [facility] [id number] [address]- 9427 Oct, [facility] [address] [address]- 1334 Oct, [facility] [id number] [address]- 6031 Oct, [facility] [id number] [place] [address] 32267- 1221 Oct, [facility] [id number] [place] [address] 04464- 4322 Sep, Bipolar 2 disorder F31.81 ; COLLEEN (generalized anxiety disorder) F41.1 ; Attention deficit disorder F90.0 and Panic disorder [episodic paroxysmal anxiety] without agoraphobia F41.0 [facility] [id number] [place] [address] 01489- 0742 Sep, [facility] [id number] [place] [address] 33272- 2988 Sep, [facility] [id number] [place] [address] 68410- 6746 Sep, [facility] [id number] [place] [address] 88541- 0588 Aug, [facility] [id number] [place] [address] 67734- 2371 Aug, [facility] [id number] [place] [address] 88328- 6865 Aug, [facility] [id number] [place] [address] 79300- 5307 Aug, [facility] [id number] [place] [address] 37930- 3428 Jul, [facility] [id number] [place] [address] 90113- 4346 Jul, [facility] [id number] [place] [address] 20583- 6125 Jul, [facility] [id number] [place] [address] 30349- 4369 Jun, [facility] [id number] [place] [address] 92453- 1041 Jun, Bipolar 2 disorder F31.81 ; Attention deficit disorder F90.0 ; COLLEEN (generalized anxiety disorder) F41.1 and Panic disorder [episodic paroxysmal anxiety] without agoraphobia F41.0 [facility] [id number] [place] [address] 11513- 3259 Jun, [facility] [address] 64420- 7789 Jun, [facility] [address] 25439- 3554 Jun, Right foot pain M79.671 and Nausea and vomiting in adult R11.2 [facility] [address] 91266- 7011 May, [facility] [address] 78065- 0826 May, Other sinusitis, unspecified chronicity J32.9 ; Environmental allergies Z91.09 ; Other chronic pain G89.29 and Sacrococcygeal disorders, not elsewhere classified M53.3 [facility] [id number] [place] [address] 67394 -5204 May, Acute non-recurrent pansinusitis J01.40 and Gastroenteritis K52.9 [facility] [id number] [place] [address] 33911- 9833 May, [facility] [address] 41822- 1308 May, [facility] [id number] [place] [address] 89068- 1132 Apr, Bronchitis J40 [facility] [address] 25290- 9203 Apr, [facility] [address] 36475- 1365 Apr, [facility] [address] [place] [address]- 3118 Apr, [facility] [address] [address] -8850 Apr, Nausea and vomiting in adult R11.2 [facility] [address] [address]- 8976 Apr, Nausea and vomiting in adult R11.2 [facility] [id number] [place] [address] 55139- 7270 Apr, Bipolar 2 disorder F31.81 ; Generalized anxiety disorder F41.1 ; Panic disorder [episodic paroxysmal anxiety] without agoraphobia F41.0 ; Attention deficit disorder F90.0 and COLLEEN (generalized anxiety disorder) F41.1 [facility] [address] [address]- 3932 Apr, [facility] [id number] [place] [address] 69695- 1943 Mar, [facility] [address] [address]- 3270 Mar, [facility] [id number] [place] [address] 99285- 0198 Mar, [facility] [address] [address]- 2425 Mar, Bipolar 2 disorder F31.81 ; Attention deficit disorder F90.0 ; COLLEEN (generalized anxiety disorder) F41.1 and Panic disorder [episodic paroxysmal anxiety] without agoraphobia F41.0 [facility] [address] [address]- 5068 Mar, [facility] [address] [address]- 8791 Feb, Bipolar 2 disorder F31.81 ; Generalized anxiety disorder F41.1 and Attention deficit disorder F90.0 [facility] [address] [address]- 3119 Feb, Generalized anxiety disorder F41.1 [facility] [address] [address]- 6560 Feb, Generalized anxiety disorder F41.1 ; Attention deficit disorder F90.0 and Bipolar 2 disorder F31.81 [facility] [address] [address]- 8393 Feb, Bipolar 2 disorder F31.81 ; Generalized anxiety disorder F41.1 ; Attention deficit disorder F90.0 and Insomnia, unspecified type G47.00 [facility] [address] [place] [address] 04201- 2903 Feb, Excessive sweating R61 and Breast lump in upper outer quadrant N63 [facility] [address] [place] [address] 46490 -9209 January, Low back pain M54.5 ; Other chronic pain G89.29 and Urinary tract infection, site unspecified N39.0 [facility] [id number] [place] [address] 34038- 9273 January, Bipolar II disorder F31.81 [facility] [id number] [place] [address] 28070- 1760 January, [facility] [id number] [place] [address] 93071- 0251 January, Insomnia, unspecified type G47.00 and Grief F43.20 [facility] [address] [place] [address] 55199- 8064 January, [facility] [id number] [place] [address] 58583- 4356 Dec, [facility] [id number] [place] [address] 41080- 1404 Dec, [facility] [address] [place] [address] 71884- 7598 Dec, Bipolar 2 disorder F31.81 ; Generalized anxiety disorder F41.1 and Attention deficit disorder F90.0 [facility] [address] 28010- 5976 21 Dec, 2015 Sinusitis J32.9 [facility] [address] 78091- 7083 14 Dec, 2015 Sinusitis J32.9 and Hypothyroid E03.9 [facility] [address] 59759- 3707 Dec, [facility] [address] 22254 -8861 11 Dec, 2015 Cough R05 and Allergic rhinitis J30.9 [facility] [address] 16499- 5108 Nov, Hypertension I10 ; Obesity E66.9 and Acne L70.9 [facility] [address] 16250- 4201 Nov, [facility] [address] 06356- 5844 Oct, [facility] [address] 82794- 7449 Oct, [facility] [address] 09508- 0154 Oct, [facility] [address] 25287- 6946 Oct, [facility] [address] 71851- 0953 Sep, Lymphadenitis I88.9 ; Essential hypertension I10 and Acne, unspecified acne type L70.9 [facility] [id number] [place] [address] 65412- 1689 Sep, [facility] [address] 20487- 1021 Sep, [place] [address] [address]- 2941 Sep, [facility] [id number] [place] [address] 28115- 8274 Sep, Acquired hypothyroidism E03.9 [facility] [id number] [place] [address] 73315- 2335 Aug, Acquired hypothyroidism E03.9 [facility] [id number] [place] [address] 62282- 2062 Aug, Furuncle L02.92 [facility] [id number] [place] [address] 70842- 4867 Aug, [facility] [id number] [place] [address] 45679- 5336 Aug, Bipolar 2 disorder F31.81 ; Generalized anxiety disorder F41.1 ; Attention deficit disorder F90.0 and Obesity E66.9 [facility] [id number] [place] [address] 86580- 8538 Aug, [facility] [id number] [place] [address] 33822- 4203 Aug, [facility] [id number] [place] [address] 34639- 4472 Aug, Acquired hypothyroidism E03.9 [facility] [id number] [place] [address] 47330- 7004 Jul, Acquired hypothyroidism E03.9 ; Upper respiratory tract infection, unspecified type J06.9 and Nonintractable migraine, unspecified migraine type G43.009 [facility] [id number] [place] [address] 06385- 1194 14 Jun, 2015 Acute pharyngitis, unspecified J02.9 [facility] [id number] [place] [address] 29532- 7691 24 May, 2015 Bipolar II disorder 296.89 ; Attention deficit disorder of childhood without mention of hyperactivity 314.00 ; Generalized anxiety disorder 300.02 and Morbid obesity with BMI of 45.0-49.9, adult 278.01 [facility] [address] [address]- 2506 May, Sinusitis 473.9 [facility] [address] [address]- 4986 Apr, [facility] [id number] [place] [address] 83165- 2996 Mar, [facility] [id number] [place] [address] 22880- 5847 Mar, Bipolar II disorder 296.89 ; Generalized anxiety disorder 300.02 ; Obesity, unspecified 278.00 and Attention deficit disorder 314.00 [facility] [address] [address]- 5136 Feb, [facility] [id number] [place] [address] 41493- 5246 January, [facility] [id number] [place] [address] 99055- 0335 January, [facility] [id number] [place] [address] 72183- 4346 January, [facility] [address] [address]- 1576 January, [facility] [address] [address]- 2516 Dec, [facility] [address] [address]- 2501 Dec, [facility] [id number] [place] [address] 62526 2546 Nov, [facility] [address] [address]- 2546 Nov, [facility] [id number] [place] [address] 50208- 0842 Nov, [facility] [place] [facility] [address] [id number] [place] [address]- 4143 Nov, [facility] [place] [facility] [address] [id number] [place] [address]- 5717 Nov, [facility] [place] [facility] [address] [id number] [place] [address]- 6622 Nov, [facility] [place] [facility] [address] [id number] [place] [address]- 1889 Nov, [facility] [place] [facility] [address] [id number] [place] [address]- 6098 Nov, [facility] [place] [facility] [address] [id number] [place] [address]- 8427 Nov, [facility] [place] [facility] [address] [id number] [place] [address]- 0487 Nov, [facility] [place] [facility] [address] [id number] [place] [address]- 9434 Nov, [facility] [place] [facility] [address] [id number] [place] [address]- 9130 Nov, [facility] [place] [facility] [address] [id number] [place] [address]- 0618 Nov, [facility] [place] [facility] [address] [id number] [place] [address]- 6101 Nov, [facility] [place] [facility] [address] [id number] [place] [address]- 9561 Oct, [facility] [place] [facility] [address] [id number] [place] [address]- 4300 Oct, [facility] [place] [facility] [address] [id number] [place] [address]- 4966 Oct, [facility] [place] [facility] [address] [id number] [place] [address]- 7996 Oct, [facility] [place] [facility] [address] [id number] [place] [address]- 4361 Oct, 2014 [facility] [place] [facility] [address] [id number] [place] [address]- 5181 Oct, 2014 [facility] [place] [facility] [address] [id number] [place] [address]- 3966 Oct, 2014 [facility] [place] [facility] [address] [id number] [place] [address]- 6326 Oct, 2014 [facility] [place] [facility] [address] [id number] [place] [address]- 1393 Oct, 2014 [facility] [place] [facility] [address] [id number] [place] [address]- 8364 Oct, 2014 [facility] [place] [facility] [address] [id number] [place] [address]- 3318 Oct, [facility] [place] [facility] [address] [id number] [place] [address]- 0205 Oct, [facility] [place] [facility] [address] [id number] [place] [address]- 8475 Sep, [facility] [place] [facility] [address] [facility] [id number] [place] [address]- 5747 Sep, [facility] [place] [facility] [address] [facility] [id number] [place] [address]- 9780 Sep, [facility] [place] [facility] [address] [id number] [place] [address]- 5175 Sep, [facility] [place] [facility] [address] [id number] [place] [address]- 9146 Sep, [facility] [place] [facility] [address] [id number] [place] [address]- 5205 Sep, [facility] [place] [facility] [address] [id number] [place] [address]- 2810 Sep, [facility] [place] [facility] [address] [id number] [place] [address]- 9163 Sep, [facility] [place] [facility] [address] [id number] [place] [address]- 92[address] Aug, [facility] [place] [facility] [address] [id number] [place] [address] Aug, [facility] [place] [facility] [address] [id number] [place] [address] Aug, [facility] [place] [facility] [address] [id number] [place] [address] Aug, [facility] [place] [facility] [address] [id number] [place] [address] Aug, [facility] [place] [facility] [address] [id number] [place] [address] Aug, [facility] [place] [facility] [address] [id number] [place] [address] Aug, [facility] [place] [facility] [address] [id number] [place] [address] Aug, [facility] [place] [facility] [address] [id number] [place] [address] Aug, [facility] [place] [facility] [address] [id number] [place] [address]- [address]67 Aug, [facility] [place] [facility] [address] [id number] [place] [address]- 7977 Aug, [facility] [place] [facility] [address] [id number] [place] [address] Aug, [facility] [place] [facility] [address] [id number] [place] [address] Aug, [facility] [place] [facility] [address] [id number] [place] [address] Aug, [facility] [place] [facility] [address] [id number] [place] [address] Jul, [facility] [place] [facility] [address] [id number] [place] [address] 13 Jul, 2014 [facility] [place] [facility] [address] [id number] [place] [address]- [address] Jul, [facility] [place] [facility] [address] [id number] [place] [address] Jul, [facility] [place] [facility] [address] [id number] [place] [address] Jul, [facility] [place] [facility] [address] [id number] [place] [address] Jul, [facility] [place] [facility] [address] [id number] [place] [address]- [address] Jul, [facility] [place] [facility] [address] [id number] [place] [address] Jul, [facility] [place] [facility] [address] [id number] [place] [address] Jul, [facility] [place] [facility] [address] [id number] [place] [address] Jul, [facility] [place] [facility] [address] [id number] [place] [address]- 2003 Jul, [facility] [place] [facility] [address] [id number] [place] [address] Jul, [facility] [place] [facility] [address] [id number] [place] [address]- [address] 16 Jun, 2014 [facility] [place] [facility] [address] [id number] [place] [address]- [address] 16 Jun, 2014 [facility] [place] [facility] [address] [id number] [place] [address]- [address]37 15 Jun, 2014 [facility] [place] [facility] [address] [id number] [place] [address]- [address] 14 Jun, 2014 [facility] [place] [facility] [address] [id number] [place] [address]- [address] 14 Jun, 2014 [facility] [place] [facility] [address] [id number] [place] [address]- [address] 14 Jun, 2014 [facility] [place] [facility] [address] [id number] [place] [address]- [address]99 14 Jun, 2014 [facility] [place] [facility] [address] [id number] [place] [address]- [address]199 13 Jun, 2014 [facility] [place] [facility] [address] [id number] [place] [address]- [address] 10 Jun, 2014 [facility] [place] [facility] [address] [id number] [place] [address]- [address] 10 Jun, 2014 [facility] [place] [facility] [address] [id number] [place] [address]- [address] 09 Jun, 2014 [facility] [place] [facility] [address] [id number] [place] [address]- [address] 09 Jun, 2014 [facility] [place] [facility] [address] [id number] [place] [address] 06 Jun, 2014 [facility] [place] [facility] [address] [id number] [place] [address] 06 Jun, 2014 [facility] [place] [facility] [address] [id number] [place] [address] 16 May, 2014 [facility] [place] [facility] [address] [id number] [address] 15 May, 2014 [facility] [place] [facility] [address] [id number] [address] 15 May, 2013 [facility] [place] [facility] [address] [id number] [place] [address] 9797 15 May, 2014 [facility] [place] [facility] [address] [id number] [place] [address] 7586 15 May, 2014 [facility] [place] [facility] [address] [id number] [address] 15 May, 2013 [facility] [place] [facility] [address] [id number] [place] [address] 15 May, 2013 [facility] [place] [facility] [address] [id number] [place] [address] 4413 12 May, 2013 [facility] [place] [facility] [address] [id number] [place] [address] 7350 12 May, 2013 [facility] [place] [facility] [address] [id number] [place] [address] 6228 10 May, 2013 [facility] [place] [facility] [address] [id number] [place] [address] 5061 10 May, 2013 [facility] [place] [facility] [address] [id number] [place] [address] 7858 May, [facility] [place] [facility] [address] [id number] [place] [address] 4407 May, [facility] [place] [facility] [address] [id number] [place] [address]- 3226 May, [facility] [place] [facility] [address] [id number] [place] [address] 1388 May, [facility] [place] [facility] [address] [id number] [place] [address]274 Apr, [facility] [place] [facility] [address] [id number] [place] [address] 0209 Apr, [facility] [place] [facility] [address] [id number] [place] [address]- 5090 Apr, [facility] [place] [facility] [address] [id number] [place] [address]- [address]9 Apr, [facility] [place] [facility] [address] [id number] [place] [address]- 5044 Apr, [facility] [place] [facility] [address] [id number] [place] [address] 7779 Apr, [facility] [place] [facility] [address] [id number] [place] [address]- 4456 Apr, [facility] [place] [facility] [address] [id number] [place] [address]245 Apr, [facility] [place] [facility] [address] [id number] [place] [address]- 64[address] Apr, [facility] [place] [facility] [address] [id number] [place] [address] Mar, [facility] [place] [facility] [address] [id number] [place] [address] 9743 Mar, [facility] [place] [facility] [address] [id number] [place] [address] 5151 Mar, [facility] [place] [facility] [address] [id number] [place] [address] 7008 Mar, [facility] [place] [facility] [address] [id number] [place] [address] 5854 Mar, [facility] [place] [facility] [address] [id number] [place] [address] 8830 Mar, [facility] [place] [facility] [address] [id number] [place] [address] 9460 Mar, [facility] [place] [facility] [address] [id number] [place] [address] 1587 Mar, [facility] [place] [facility] [address] [id number] [place] [address] 6262 Mar, [facility] [place] [facility] [address] [id number] [place] [address] 9398 Mar, [facility] [place] [facility] [address] [id number] [place] [address] 0507 Mar, [facility] [place] [facility] [address] [id number] [place] [address] 1316 Mar, [facility] [place] [facility] [address] [id number] [place] [address] 6036 Mar, [facility] [place] [facility] [address] [id number] [place] [address]- 8422 Mar, [facility] [place] [facility] [address] [id number] [place] [address] 2911 Mar, [facility] [place] [facility] [address] [id number] [place] [address]- 0050 Mar, [facility] [place] [facility] [address] [id number] [place] [address]- 9368 Mar, [facility] [place] [facility] [address] [id number] [place] [address]- 0046 Mar, [facility] [place] [facility] [address] [id number] [place] [address] 9402 Feb, [facility] [place] [facility] [address] [id number] [place] [address]- 2362 Feb, [facility] [place] [facility] [address] [id number] [place] [address]- 0383 Feb, [facility] [place] [facility] [address] [id number] [place] [address]- 9346 Feb, [facility] [place] [facility] [address] [id number] [place] [address]- 7166 Feb, [facility] [place] [facility] [address] [id number] [place] [address]- 3089 Feb, [facility] [place] [facility] [address] [id number] [place] [address]- 3130 Feb, [facility] [place] [facility] [address] [id number] [address] 6340 Feb, [facility] [place] [facility] [address] [id number] [place] [address]- 9045 Feb, [facility] [place] [facility] [address] [id number] [place] [address]- 9169 Feb, [facility] [place] [facility] [address] [id number] [place] [address] January, [facility] [place] [facility] [address] [id number] [place] [address]- 9733 January, [facility] [address] [id number] [place] [address] 0027 January, [facility] [place] [facility] [address] [id number] [place] [address]- 8205 January, [facility] [place] [facility] [address] [id number] [place] [address]- 3955 January, [facility] [place] [facility] [address] [id number] [place] [address]- 2990 January, [facility] [place] [facility] [address] [id number] [place] [address]- 3241 January, [facility] [place] [facility] [address] [id number] [place] [address] 8806 January[facility] [address] [id number] [place] [address] 0492 January, [facility] [place] [facility] [address] [id number] [place] [address]- 7707 January, [facility] [place] [facility] [address] [id number] [place] [address]- 4956 January, [facility] [place] [facility] [address] [id number] [place] [address]- 1470 January, [facility] [place] [facility] [address] [id number] [place] [address]- 5502 January, [facility] [place] [facility] [address] [id number] [place] [address]- 3187 January, [facility] [place] [facility] [address] [id number] [place] [address]- 4719 January, [facility] [place] [facility] [address] [id number] [place] [address]- 7256 Dec, [facility] [place] [facility] [address] [id number] [place] [address]- 2284 Dec, [facility] [place] [facility] [address] [id number] [place] [address]- 2416 Dec, [facility] [place] [facility] [address] [id number] [place] [address]- 7142 Dec, [facility] [place] [facility] [address] [id number] [place] [address]- 4194 Dec, [facility] [place] [facility] [address] [id number] [place] [address]- 0207 Dec, [facility] [place] [facility] [address] [id number] [place] [address]- 7413 Nov, [facility] [place] [facility] [address] [id number] [place] [address]- 3437 Nov, [facility] [place] [facility] [address] [id number] [place] [address]- 2072 Nov, [facility] [place] [facility] [address] [id number] [place] [address]- 8591 Nov, [facility] [place] [facility] [address] [id number] [place] [address]- 2059 Nov, [facility] [place] [facility] [address] [id number] [place] [address]- 9013 Oct, [facility] [place] [facility] [address] [id number] [place] [address]- 4298 Oct, [facility] [place] [facility] [address] [id number] [place] [address]- 3131 Oct, [facility] [place] [facility] [address] [id number] [place] [address]- 7343 Oct, [facility] [place] [facility] [address] [id number] [place] [address]- 6124 10 Oct, 2013 [facility] [place] [facility] [address] [id number] [place] [address]- 2307 06 Oct, 2013 [facility] [place] [facility] [address] [id number] [place] [address]- 1481 06 Oct, 2013 [facility] [place] [facility] [address] [id number] [place] [address]- 2337 04 Oct, 2013 [facility] [place] [facility] [address] [id number] [place] [address]- 1932 Oct, [facility] [place] [facility] [address] [id number] [place] [address]- 7712 Oct, [facility] [place] [facility] [address] [id number] [place] [address]- 7361 Oct, [facility] [place] [facility] [address] [id number] [place] [address]- 1611 Sep, [facility] [place] [facility] [address] [id number] [place] [address]- 3272 Sep, [facility] [place] [facility] [address] [id number] [place] [address]- 6556 Sep, [facility] [place] [facility] [address] [id number] [place] [address]- 8655 Sep, [facility] [place] [facility] [address] [id number] [place] [address]- 6756 Aug, [facility] [place] [facility] [address] [id number] [place] [address]- 7650 Aug, [facility] [place] [facility] [address] [id number] [place] [address]- 5478 Jul, [facility] [place] [facility] [address] [id number] [place] [address]- 6254 Jul, [facility] [place] [facility] [address] [id number] [place] [address]- 9850 Jul, [facility] [place] [facility] [address] [id number] [place] [address]- 2860 Jul, [facility] [place] [facility] [address] [id number] [place] [address]- 2111 Jul, [facility] [place] [facility] [address] [id number] [place] [address]- 8213 Jun, [facility] [address] [id number] [place] [address]- 5435 Jun, [facility] [address] [id number] [place] [address]- 0654 May, [facility] [place] [facility] [address] [id number] [place] [address]- 5376 Mar, [facility] [address] [id number] [place] [address]- 9860 Mar, [facility] [place] [facility] [address] [id number] [place] [address]- 2546 Mar, [facility] [address] [id number] [place] [address]- 0340 Feb, [facility] [address] [id number] [place] [address]- 2536 January, [facility] [address] [id number] [place] [address]- 8264 Dec, [facility] [address] [id number] [place] [address]- 1107 Nov, [facility] [place] [facility] [address] [id number] [place] [address]- 2549 Nov, [facility] [place] [facility] [address] [id number] [address]- 2549 Nov, [facility] [place] [facility] [address] [id number] [place] [address]- 2544 Oct, [facility] [place] [facility] [address] [id number] [place] [address]- 2546 Oct, [facility] [place] [facility] [address] [id number] [place] [address]- 2546 Oct, [facility] [place] [facility] [address] [id number] [place] [address]- 2546 Oct, [facility] [address] [facility] [id number] [place] [address]- [address]46 Sep, IMMUNIZATIONS No Known Immunizations SOCIAL HISTORY Never Assessed REASON FOR VISIT meds per labs PLAN OF CARE VITAL SIGNS MEDICATIONS Medication Instructions Dosage Frequency Start Date End Date Duration Status Levothyroxine Sodium 25 MCG Orally Once a day 1 tablet on an empty stomach in the morning 24h Jun, 30 day(s) Active RESULTS No Results PROCEDURES [...]
--- OUTSIDE RECORDS SUMMARY | 2018-09-23 22:15 | XMS REPORT ---
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 Name Role Phone BALJIT OSEI Unavailable PROBLEMS Type Condition ICD9-CM Code XYM61-RA Code Onset Dates Condition Status SNOMED Code Problem Acne L70.9 Active 96295686 Problem Sciatica of right side M54.31 Active 11191306 Problem Panic disorder [episodic paroxysmal anxiety] without agoraphobia F41.0 Active 02543543 Problem Attention-deficit hyperactivity disorder, predominantly inattentive type F90.0 Active 20020109 Problem Current nonadherence to medical treatment Z91.19 Active 1175151 Problem Acquired hypothyroidism E03.9 Active 276327182 Problem Essential hypertension I10 Active 25119418 Problem Primary insomnia F51.01 Active 2631843 Problem Migraine with aura and without status migrainosus, not intractable G43.109 Active 9012719 Problem Abnormal liver function K76.89 Active 79546608 Problem Obesity E66.9 Active 386573044 Problem Bipolar 2 disorder F31.81 Active 86058998 Problem Postoperative hypothyroidism E89.0 Active 13320256 Problem Generalized anxiety disorder F41.1 Active 85451474 ALLERGIES No Information ENCOUNTERS Encounter Location Date Diagnosis [facility] [address] [address] Apr, [facility] [address] [address] 7613 Mar, [facility] [id number] [place] [address] 60504- 2947 Mar, [facility] [address] [address] 9856 Mar, [facility] [id number] [place] [address] 85310- 6467 Mar, [facility] [id number] [place] [address] 99439- 9794 Feb, Bipolar 2 disorder F31.81 ; Generalized anxiety disorder F41.1 ; Attention-deficit hyperactivity disorder, predominantly inattentive type F90.0 and Current nonadherence to medical treatment Z91.19 [facility] [id number] [place] [address] 19603- 0692 Feb, [facility] [id number] [place] [address] 14237- 4431 Nov, Normal physical exam Z00.00 and Enlarged lymph node R59.9 [facility] [id number] [place] [address] 27670- 5186 Nov, Enlarged lymph node R59.9 ; Abnormal liver function K76.89 and Hypothyroid E03.9 [facility] [id number] [place] [address] 95961- 6779 Oct, Bipolar 2 disorder F31.81 [facility] [id number] [place] [address] 61306- 9610 Oct, Sciatica of right side M54.31 and Essential hypertension I10 [facility] [id number] [place] [address] 50373- 1902 Oct, [facility] [id number] [place] [address] 79415- 3559 Aug, Hypothyroid E03.9 [facility] [id number] [place] [address] 09248- 4571 Aug, [facility] [id number] [place] [address] 10447- 3468 Aug, Bipolar 2 disorder F31.81 [facility] [id number] [place] [address] 96667- 5879 Aug, Abnormal liver function K76.89 [facility] [address] 49694- 5642 Jul, Bipolar 2 disorder F31.81 [facility] [id number] [place] [address] 16588 -8885 Jul, [facility] [id number] [place] [address] 27434- 0161 Jul, Bipolar 2 disorder F31.81 ; Generalized anxiety disorder F41.1 ; Attention-deficit hyperactivity disorder, predominantly inattentive type F90.0 and Current nonadherence to medical treatment Z91.19 [facility] [id number] [place] [address] 83529 -8675 14 Jul, 2017 Essential hypertension I10 ; Other viral agents as the cause of diseases classified elsewhere B97.89 ; Acute upper respiratory infection, unspecified J06.9 and BMI 40.0-44.9, adult Z68.41 [facility] [id number] [place] [address] 86241- 7693 13 Jul, 2017 [facility] [id number] [place] [address] 11742- 6825 Jul, [facility] [id number] [place] [address] 01735- 5382 Jun, [facility] [id number] [place] [address] 01239- 0782 Jun, [facility] [id number] [place] [address] 46400- 2853 Jun, Dysuria R30.0 ; Urinary tract infection, site not specified N39.0 ; Hematuria, unspecified R31.9 ; Sciatica of right side M54.31 ; Migraine with aura and without status migrainosus, not intractable G43.109 ; Primary insomnia F51.01 ; Essential hypertension I10 and Acquired hypothyroidism E03.9 [facility] [id number] [place] [address] 52861- 3860 03 Jun, 2017 Bipolar 2 disorder F31.81 [facility] [id number] [place] [address] 32945- 6800 Jun, Bipolar 2 disorder F31.81 [facility] [id number] [place] [address] 76286- 5440 May, Sore throat J02.9 ; Acute serous otitis media of left ear, recurrence not specified H65.02 and Hypertension I10 [facility] [id number] [place] [address] 12320- 0659 May, Bipolar 2 disorder F31.81 [facility] [id number] [place] [address] 73189- 9328 Apr, [facility] [id number] [place] [address] 56462- 2559 Apr, Bipolar 2 disorder F31.81 [facility] [id number] [place] [address] 23866- 8462 Mar, [facility] [id number] [place] [address] 20950- 0031 Feb, Bipolar 2 disorder F31.81 ; Attention deficit disorder F90.0 ; COLLEEN (generalized anxiety disorder) F41.1 and Panic disorder [episodic paroxysmal anxiety] without agoraphobia F41.0 [facility] [id number] [place] [address] 57916- 8798 January, Bipolar 2 disorder F31.81 [facility] [address] [address]- 8049 Dec, [facility] [id number] [place] [address] 30225- 5105 Dec, [facility] [id number] [place] [address] 62914- 5957 Dec, [facility] [id number] [place] [address] 88817- 6169 Dec, Generalized anxiety disorder F41.1 ; Bipolar 2 disorder F31.81 and Panic disorder [episodic paroxysmal anxiety] without agoraphobia F41.0 [facility] [address] [address]- 5759 Dec, [facility] [address] [address]- 5930 Dec, [facility] [address] 5210 Nov, [facility] [id number] [place] [address] 49644- 8413 Nov, [facility] [id number] [address]- 9555 Nov, [facility] [id number] [place] [address], [place] [address]- 7400 Oct, [facility] [id number] [address]- 6902 Oct, [facility] [id number] [place] [address] 33404- 2841 Oct, [facility] [address] [address]- 0566 Oct, [facility] [address] [address]- 1046 Oct, [facility] [address] [address]- 2852 Sep, Bipolar 2 disorder F31.81 ; COLLEEN (generalized anxiety disorder) F41.1 ; Attention deficit disorder F90.0 and Panic disorder [episodic paroxysmal anxiety] without agoraphobia F41.0 [facility] [address] [address]- 5861 Sep, [facility] [address] [address]- 9389 Sep, [facility] [address] [address]- 1502 Sep, [facility] [id number] [address]- 0020 Aug, [facility] [address] [address]- 7499 Aug, [facility] [address] [address]- 7422 Aug, [facility] [id number] [place] [address] 081828- 8069 Aug, [facility] [id number] [place] [address] 62613- 2901 Jul, [facility] [id number] [place] [address] 085890- 5561 Jul, [facility] [id number] [place] [address] 20994- 0061 Jul, [facility] [id number] [place] [address] 02014- 8415 Jun, [facility] [id number] [place] [address] 04140- 5620 Jun, Bipolar 2 disorder F31.81 ; Attention deficit disorder F90.0 ; COLLEEN (generalized anxiety disorder) F41.1 and Panic disorder [episodic paroxysmal anxiety] without agoraphobia F41.0 [facility] [address] [address]- 2424 Jun, [facility] [id number] [place] [address] 58147- 3396 Jun, [facility] [address] [address]- 5040 Jun, Right foot pain M79.671 and Nausea and vomiting in adult R11.2 [facility] [address] [address]- 5835 May, [facility] [address] [address]- 2852 29 Sep, 2016 Other sinusitis, unspecified chronicity J32.9 ; Environmental allergies Z91.09 ; Other chronic pain G89.29 and Sacrococcygeal disorders, not elsewhere classified M53.3 [facility] [id number] [place] [address] 91870 -2361 May, Acute non-recurrent pansinusitis J01.40 and Gastroenteritis K52.9 [facility] [address] 62856- 7512 May, [facility] [address] 48692- 0773 May, [facility] [address] 66841- 8179 Apr, Bronchitis J40 [facility] [address] 99880- 0280 Apr, [facility] [address] 67274- 1665 Apr, [facility] [id number] [place] [address] 32907- 8333 Apr, [facility] [id number] [place] [address] 33041 -5480 Apr, Nausea and vomiting in adult R11.2 [facility] [id number] [place] [address] 78160- 5567 Apr, Nausea and vomiting in adult R11.2 [facility] [id number] [place] [address] 37775- 1343 Apr, Bipolar 2 disorder F31.81 ; Generalized anxiety disorder F41.1 ; Panic disorder [episodic paroxysmal anxiety] without agoraphobia F41.0 ; Attention deficit disorder F90.0 and COLLEEN (generalized anxiety disorder) F41.1 [facility] [id number] [place] [address] 47685- 3690 Apr, [facility] [address] 32128- 2772 Mar, [facility] [address] [address]- 2870 Mar, [facility] [id number] [place] [address] 52165- 6244 Mar, [facility] [id number] [place] [address] 63509- 1774 Mar, Bipolar 2 disorder F31.81 ; Attention deficit disorder F90.0 ; COLLEEN (generalized anxiety disorder) F41.1 and Panic disorder [episodic paroxysmal anxiety] without agoraphobia F41.0 [facility] [id number] [place] [address] 18301- 3397 Mar, [facility] [id number] [place] [address] 26890- 1038 Feb, Bipolar 2 disorder F31.81 ; Generalized anxiety disorder F41.1 and Attention deficit disorder F90.0 [facility] [id number] [place] [address] 15028- 7838 Feb, Generalized anxiety disorder F41.1 [facility] [id number] [place] [address] 91720- 8474 Feb, Generalized anxiety disorder F41.1 ; Attention deficit disorder F90.0 and Bipolar 2 disorder F31.81 [facility] [id number] [place] [address] 56319- 1624 Feb, Bipolar 2 disorder F31.81 ; Generalized anxiety disorder F41.1 ; Attention deficit disorder F90.0 and Insomnia, unspecified type G47.00 [facility] [id number] [place] [address] 92370- 1756 Feb, Excessive sweating R61 and Breast lump in upper outer quadrant N63 [facility] [address] [address] -9191 January, Low back pain M54.5 ; Other chronic pain G89.29 and Urinary tract infection, site unspecified N39.0 [facility] [id number] [place] [address] 33184- 5837 January, Bipolar II disorder F31.81 [facility] [id number] [place] [address] 63714- 8863 January, [facility] [id number] [place] [address] 62183- 9608 January, Insomnia, unspecified type G47.00 and Grief F43.20 [facility] [id number] [place] [address] 09012- 7978 January, [facility] [address] 79569- 9838 Dec, [facility] [address] 94642- 2767 Dec, [facility] [address] 88084- 1908 Dec, Bipolar 2 disorder F31.81 ; Generalized anxiety disorder F41.1 and Attention deficit disorder F90.0 [facility] [address] 33618- 6711 Dec, Sinusitis J32.9 [facility] [id number] [place] [address] 15354- 6488 Dec, Sinusitis J32.9 and Hypothyroid E03.9 [facility] [id number] [place] [address] 49923- 6571 Dec, [facility] [id number] [place] [address] 92289 -3692 Dec, Cough R05 and Allergic rhinitis J30.9 [facility] [id number] [place] [address] 04854- 7461 Nov, Hypertension I10 ; Obesity E66.9 and Acne L70.9 [facility] [address] 94121- 7058 Nov, [facility] [id number] [place] [address] 14483- 1535 Oct, [facility] [id number] [place] [address] 58402- 5246 Oct, [facility] [id number] [place] [address] 20500- 6314 Oct, [facility] [id number] [place] [address] 15918- 6488 Oct, [facility] [id number] [place] [address] 89981- 5205 Sep, Lymphadenitis I88.9 ; Essential hypertension I10 and Acne, unspecified acne type L70.9 [facility] [id number] [place] [address] 22218- 8889 Sep, [facility] [id number] [place] [address] 79278- 3897 Sep, [facility] [id number] [place] [address] 24041- 6279 Sep, [facility] [id number] [place] [address] 12578- 2053 Sep, Acquired hypothyroidism E03.9 [facility] [id number] [place] [address] 77901- 8733 Aug, Acquired hypothyroidism E03.9 [facility] [address] [place] [address] 66636- 9747 Aug, Furuncle L02.92 [facility] [id number] [place] [address] 24969- 6292 Aug, [facility] [id number] [place] [address] 16323- 9625 Aug, Bipolar 2 disorder F31.81 ; Generalized anxiety disorder F41.1 ; Attention deficit disorder F90.0 and Obesity E66.9 [facility] [id number] [place] [address] 76238- 6533 16 Aug, 2015 [facility] [id number] [place] [address] 86778- 9375 Aug, [facility] [id number] [place] [address] 20775- 6603 Aug, Acquired hypothyroidism E03.9 [facility] [id number] [place] [address] 46364- 6325 Jul, Acquired hypothyroidism E03.9 ; Upper respiratory tract infection, unspecified type J06.9 and Nonintractable migraine, unspecified migraine type G43.009 [facility] [id number] [place] [address] 63208- 3894 Jun, Acute pharyngitis, unspecified J02.9 [facility] [id number] [place] [address] 21385- 5198 May, Bipolar II disorder 296.89 ; Attention deficit disorder of childhood without mention of hyperactivity 314.00 ; Generalized anxiety disorder 300.02 and Morbid obesity with BMI of 45.0-49.9, adult 278.01 [facility] [id number] [place] [address] 82551- 8376 17 May, 2015 Sinusitis 473.9 [facility] [id number] [place] [address] 01127- 3580 Apr, [facility] [id number] [place] [address] 61270- 0072 Mar, [facility] [id number] [place] [address] 92322- 2290 Mar, Bipolar II disorder 296.89 ; Generalized anxiety disorder 300.02 ; Obesity, unspecified 278.00 and Attention deficit disorder 314.00 [facility] [id number] [place] [address] 05659- 5298 Feb, [facility] [id number] [place] [address] 90205- 8711 January, [facility] [place] [facility] [address] [id number] [place] [address]- 2520 January, [facility] [place] [facility] [address] [id number] [place] [address]- 6686 January, [facility] [place] [facility] [address] [id number] [place] [address]- 7079 January, [facility] [place] [facility] [address] [id number] [place] [address]- 0894 Dec, [facility] [place] [facility] [address] [id number] [place] [address]- 3598 Dec, [facility] [place] [facility] [address] [id number] [place] [address]- 3252 30 Nov, 2014 [facility] [place] [facility] [address] [id number] [place] [address]- 5455 18 Nov, 2014 [facility] [place] [facility] [address] [id number] [place] [address]- 8617 18 Nov, 2014 [facility] [place] [facility] [address] [id number] [place] [address]- 4302 Nov, [facility] [place] [facility] [address] [facility] [id number] [place] [address]- 6049 Nov, [facility] [place] [facility] [address] [id number] [place] [address]- 8405 Nov, [facility] [place] [facility] [address] [id number] [place] [address]- 2840 11 Nov, 2014 [facility] [place] [facility] [address] [id number] [place] [address]- 4650 11 Nov, 2014 [facility] [place] [facility] [address] [id number] [place] [address]- 3160 11 Nov, 2014 [facility] [place] [facility] [address] [facility] [id number] [place]- 9122 10 Nov, 2014 [facility] [place] [facility] [address] [id number] [place] [address]- 9474 10 Nov, 2014 [facility] [place] [facility] [address] [id number] [place] [address]- 5650 Nov, 2014 [facility] [place] [facility] [address] [id number] [place] [address]- 1381 Nov, 2014 [facility] [place] [facility] [address] [id number] [place] [address]- 2448 Nov, 2014 [facility] [place] [facility] [address] [id number] [place] [address]- 3027 Oct, 2014 [facility] [place] [facility] [address] [id number] [place] [address]- 2781 Oct, 2014 [facility] [place] [facility] [address] [facility] [id number] [place] [address]- 1019 Oct, 2014 [facility] [place] [facility] [address] [id number] [place] [address]- 8001 Oct, 2014 [facility] [place] [facility] [address] [id number] [place] [address]- 4967 Oct, 2014 [facility] [place] [facility] [address] [facility] [id number] [place] [address]- 7113 Oct, 2014 [facility] [place] [facility] [address] [facility] [id number] [place] [address]- 7608 Oct, 2014 [facility] [place] [facility] [address] [id number] [place] [address]- 3889 Oct, 2014 [facility] [place] [facility] [address] [id number] [place] [address]- 9636 Oct, 2014 [facility] [place] [facility] [address] [id number] [place] [address]- 6452 Oct, 2014 [facility] [place] [facility] [address] [facility] [id number] [place] [address] Oct, 2014 [facility] [place] [facility] [address] [id number] [place] [address] Oct, [facility] [place] [facility] [address] [id number] [place] [address] Sep, [facility] [place] [facility] [address] [id number] [place] [address] Sep, [facility] [place] [facility] [address] [id number] [place] [address] Sep, [facility] [place] [facility] [address] [id number] [place] [address] Sep, [facility] [place] [facility] [address] [id number] [place] [address] Sep, [facility] [place] [facility] [address] [id number] [place] [address] Sep, [facility] [place] [facility] [address] [id number] [place] [address] Sep, [facility] [place] [facility] [address] [id number] [place] [address] Sep, [facility] [place] [facility] [address] [id number] [place] [address] Aug, [facility] [place] [facility] [address] [id number] [place] [address] Aug, [facility] [place] [facility] [address] [id number] [place] [address] 30 Aug, 2014 [facility] [place] [facility] [address] [id number] [place] [address] 30 Aug, 2014 [facility] [place] [facility] [address] [id number] [place] [address] Aug, [facility] [place] [facility] [address] [id number] [place] [address] Aug, [facility] [place] [facility] [address] [id number] [place] [address] 30 Aug, 2014 [facility] [place] [facility] [address] [id number] [place] [address] Aug, [facility] [place] [facility] [address] [id number] [place] [address] Aug, [facility] [place] [facility] [address] [id number] [place] [address] Aug, [facility] [place] [facility] [address] [id number] [place] [address] Aug, [facility] [place] [facility] [address] [id number] [place] [address] Aug, [facility] [place] [facility] [address] [id number] [place] [address] Aug, [facility] [place] [facility] [address] [id number] [place] [address] Aug, [facility] [place] [facility] [address] [id number] [place] [address] Jul, [facility] [place] [facility] [address] [id number] [place] [address] Jul, [facility] [place] [facility] [address] [id number] [place] [address] Jul, [facility] [place] [facility] [address] [id number] [place] [address] Jul, [facility] [place] [facility] [address] [id number] [place] [address] Jul, [facility] [place] [facility] [address] [id number] [place] [address] Jul, [facility] [place] [facility] [address] [id number] [place] [address] Jul, [facility] [place] [facility] [address] [id number] [place] [address] Jul, [facility] [place] [facility] [address] [id number] [place] [address] Jul, [facility] [place] [facility] [address] [id number] [place] [address] 04 Jul, 2014 [facility] [place] [facility] [address] [id number] [place] [address] Jul, [facility] [place] [facility] [address] [id number] [place] [address] Jul, [facility] [place] [facility] [address] [id number] [place] [address] 16 Jun, 2014 [facility] [place] [facility] [address] [id number] [place] [address] 3717 16 Jun, 2014 [facility] [place] [facility] [address] [id number] [place] [address] 5789 15 Jun, 2014 [facility] [place] [facility] [address] [id number] [place] [address] 0284 14 Jun, 2014 [facility] [place] [facility] [address] [id number] [place] [address] 3054 14 Jun, 2014 [facility] [place] [facility] [address] [id number] [place] [address] 0633 14 Jun, 2014 [facility] [place] [facility] [address] [id number] [place] [address] 0359 14 Jun, 2014 [facility] [place] [facility] [address] [id number] [place] [address] 13 Jun, 2014 [facility] [place] [facility] [address] [id number] [place] [address] 2271 10 Jun, 2014 [facility] [place] [facility] [address] [id number] [place] [address]- 2903 10 Jun, 2014 [facility] [place] [facility] [address] [id number] [place] [address] 09 Jun, 2014 [facility] [place] [facility] [address] [id number] [place] [address] 09 Jun, 2014 [facility] [place] [facility] [address] [id number] [place] [address]- 1196 06 Jun, 2014 [facility] [place] [facility] [address] [id number] [place] [address]- 4[address] 06 Jun, 2013 [facility] [place] [facility] [address] [id number] [place] [address]- 2546 16 May, 2013 [facility] [place] [facility] [address] [id number] [place] [address] 2546 15 May, 2013 [facility] [place] [facility] [address] [id number] [place] [address] 2541 15 May, 2013 [facility] [place] [facility] [address] [id number] [place] [address]- 5455 15 May, 2013 [facility] [place] [facility] [address] [id number] [place] [address]- 0100 15 May, 2013 [facility] [place] [facility] [address] [id number] [place] [address]- 9177 15 May, 2013 [facility] [place] [facility] [address] [id number] [place] [address]- 2542 15 May, 2013 [facility] [place] [facility] [address] [id number] [place] [address] 2545 12 May, 2013 [facility] [place] [facility] [address] [id number] [place] [address]- 254 12 May, 2013 [facility] [place] [facility] [address] [id number] [place] [address] 2541 10 May, 2013 [facility] [place] [facility] [address] [id number] [place] [address]- 2545 10 May, 2013 [facility] [place] [facility] [address] [id number] [place] [address] 2541 02 May, 2013 [facility] [place] [facility] [address] [id number] [place] [address]- 2545 02 May, 2013 [facility] [place] [facility] [address] [id number] [place] [address]- 2542 May, [facility] [place] [facility] [address] [id number] [place] [address]- 3979 May, [facility] [place] [facility] [address] [id number] [place] [address]- 6902 Apr, [facility] [place] [facility] [address] [id number] [place] [address]- 3598 Apr, [facility] [place] [facility] [address] [id number] [place] [address]- 2358 Apr, [facility] [place] [facility] [address] [id number] [place] [address]- 5897 Apr, [facility] [place] [facility] [address] [id number] [place] [address]- 5673 Apr, [facility] [place] [facility] [address] [id number] [place] [address]- 2155 Apr, [facility] [place] [facility] [address] [id number] [place] [address]- 5490 Apr, [facility] [place] [facility] [address] [id number] [place] [address]- 1430 Apr, [facility] [place] [facility] [address] [id number] [place] [address]- 9157 Apr, [facility] [place] [facility] [address] [id number] [place] [address]- 0905 Mar, [facility] [place] [facility] [address] [id number] [place] [address]- 5031 Mar, [facility] [place] [facility] [address] [id number] [place] [address]- 8175 Mar, [facility] [place] [facility] [address] [id number] [place] [address]- 9870 Mar, [facility] [place] [facility] [address] [id number] [place] [address]- 0268 Mar, [facility] [place] [facility] [address] [id number] [place] [address] 4070 Mar, 2013 [facility] [place] [facility] [address] [id number] [place] [address]- 2579 Mar, 2013 [facility] [place] [facility] [address] [id number] [place] [address]- 3397 Mar, 2013 [facility] [place] [facility] [address] [id number] [place] [address]- 2046 Mar, 2013 [facility] [place] [facility] [address] [id number] [place] [address]- 3173 Mar, 2013 [facility] [place] [facility] [address] [id number] [place] [address]- 6325 Mar, 2013 [facility] [place] [facility] [address] [id number] [place] [address]- 1374 Mar, 2013 [facility] [place] [facility] [address] [id number] [place] [address]- 9129 Mar, 2013 [facility] [place] [facility] [address] [id number] [place] [address] Mar, 2013 [facility] [place] [facility] [address] [id number] [place] [address] 6229 Mar, [facility] [place] [facility] [address] [id number] [place] [address]- 5284 Mar, [facility] [place] [facility] [address] [id number] [place] [address]- 1388 Mar, 2013 [facility] [place] [facility] [address] [id number] [place] [address]- 8236 Mar, [facility] [place] [facility] [address] [id number] [place] [address]- 6753 Feb, [facility] [place] [facility] [address] [id number] [place] [address]- 1726 Feb, [facility] [place] [facility] [address] [id number] [place] [address]- 0696 Feb, [facility] [place] [facility] [address] [id number] [place] [address]- 2159 Feb, [facility] [place] [facility] [address] [id number] [place] [address]- 8896 Feb, [facility] [place] [facility] [address] [id number] [place] [address]- 0063 Feb, [facility] [place] [facility] [address] [id number] [place] [address]- 5034 Feb, [facility] [place] [facility] [address] [id number] [place] [address]- 5119 Feb, [facility] [place] [facility] [address] [id number] [place] [address]- 4279 Feb, [facility] [place] [facility] [address] [id number] [place] [address]- 4767 Feb, [facility] [place] [facility] [address] [id number] [place] [address]- 0571 January, [facility] [place] [facility] [address] [id number] [place] [address]- 6091 January, [facility] [place] [facility] [address] [id number] [place] [address]- 2385 January, [facility] [place] [facility] [address] [id number] [place] [address]- 9677 January, [facility] [place] [facility] [address] [id number] [place] [address]- 2405 January, [facility] [place] [facility] [address] [id number] [place] [address]- 8316 January, [facility] [place] [facility] [address] [id number] [place] [address]- 9866 January, [facility] [place] [facility] [address] [id number] [place] [address]- 6493 January, [facility] [place] [facility] [address] [id number] [place] [address]- 6140 January, [facility] [place] [facility] [address] [id number] [place] [address]- 7376 January, [facility] [place] [facility] [address] [id number] [place] [address]- 3670 January, [facility] [place] [facility] [address] [id number] [place] [address]- 1630 January, [facility] [place] [facility] [address] [id number] [place] [address]- 6759 January, [facility] [place] [facility] [address] [id number] [place] [address]- 1646 January, [facility] [place] [facility] [address] [id number] [place] [address]- 0135 January, [facility] [place] [facility] [address] [id number] [place] [address]- 0181 Dec, [facility] [place] [facility] [address] [id number] [place] [address]- 3103 Dec, [facility] [place] [facility] [address] [id number] [place] [address]- 3322 Dec, [facility] [place] [facility] [address] [id number] [place] [address]- 9610 Dec, [facility] [place] [facility] [address] [id number] [place] [address]- 4587 Dec, [facility] [place] [facility] [address] [id number] [place] [address]- 2421 Dec, [facility] [place] [facility] [address] [id number] [place] [address]- 9552 Nov, [facility] [place] [facility] [address] [id number] [place] [address]- 2121 Nov, [facility] [place] [facility] [address] [id number] [place] [address]- 7514 Nov, [facility] [place] [facility] [address] [id number] [place] [address]- 2682 Nov, [facility] [place] [facility] [address] [id number] [place] [address]- 5629 Nov, [facility] [place] [facility] [address] [id number] [place] [address]- 2881 Oct, [facility] [place] [facility] [address] [id number] [place] [address]- 6451 Oct, [facility] [place] [facility] [address] [id number] [place] [address]- 0884 Oct, [facility] [place] [facility] [address] [id number] [place] [address]- 7607 Oct, [facility] [place] [facility] [address] [id number] [place] [address]- 7055 Oct, [facility] [place] [facility] [address] [id number] [place] [address]- 3321 Oct, [facility] [place] [facility] [address] [id number] [place] [address]- 5077 Oct, [facility] [place] [facility] [address] [id number] [place] [address]- 9181 Oct, [facility] [place] [facility] [address] [facility] [id number] [place] [address]- 7410 Oct, [facility] [place] [facility] [address] [facility] [id number] [place] [address]- 4911 Oct, [facility] [place] [facility] [address] [id number] [place] [address]- 7868 Oct, [facility] [place] [facility] [address] [id number] [place] [address]- 7657 Sep, [facility] [place] [facility] [address] [id number] [place] [address]- 9090 Sep, [facility] [place] [facility] [address] [facility] [id number] [place] [address]- 3246 Sep, [facility] [place] [facility] [address] [id number] [place] [address]- 7355 Sep, [facility] [place] [facility] [address] [id number] [place] [address]- 2187 Aug, [facility] [place] [facility] [address] [id number] [place] [address] 2545 Aug, [facility] [place] [facility] [address] [id number] [place] [address]- 7557 Jul, [facility] [place] [facility] [address] [id number] [place] [address]- 2800 Jul, [facility] [place] [facility] [address] [id number] [place] [address]- 8968 Jul, [facility] [place] [facility] [address] [id number] [place] [address]- 0104 Jul, [facility] [place] [facility] [address] [id number] [place] [address]- 5626 Jul, [facility] [place] [facility] [address] [id number] [place] [address]- 7535 Jun, [facility] [place] [facility] [address] [id number] [place] [address]- 1319 Jun, [facility] [place] [facility] [address] [id number] [place] [address]- 0705 May, [facility] [place] [facility] [address] [id number] [place] [address] 2548 Mar, [facility] [place] [facility] [address] [id number] [place] [address]- 2549 Mar, [facility] [place] [facility] [address] [id number] [place] [address]- 3155 Mar, [facility] [place] [facility] [address] [id number] [place] [address]- 2541 Feb, [facility] [place] [facility] [address] [id number] [address] 2546 January, [facility] [id number] [address]- 7036 Dec, [facility] [id number] [address] 2546 Nov, [facility] [address] [id number] [address]- 5626 Nov, [facility] [id number] [place] [address]- 2546 Nov, [facility] [id number] [address]- 5106 Oct, [facility] [id number] [address]- 2546 Oct, [facility] [id number] [address] 2546 Oct, [facility] [id number] [address] 2546 Oct, [facility] [address] [id number] [address] 2546 Sep, IMMUNIZATIONS No Known Immunizations SOCIAL HISTORY Never Assessed REASON FOR VISIT Medication refill request PLAN OF CARE VITAL SIGNS MEDICATIONS Medication Instructions Dosage Frequency Start Date End Date Duration Status Lisinopril 20 mg Orally Once a day 1 tablet 24h 30 days Active Norvasc 5 MG Orally Once a day 1 tablet 24h May, 30 day(s) Active Maxalt 10 MG Orally [...]
--- OUTSIDE RECORDS SUMMARY | 2018-09-23 22:16 | XMS REPORT ---
Author Author BALJIT OSEI Organization [facility] Address [address] [place] [address] Care Team Providers Care Sports Coordinator Name Role Phone BALJIT OSEI Unavailable PROBLEMS Type Condition ICD9-CM Code [id number] Code Onset Dates Condition Status SNOMED Code Problem Acne L70.9 Active 28157822 Problem Sciatica of right side M54.31 Active 28792226 Problem Panic disorder [episodic paroxysmal anxiety] without agoraphobia F41.0 Active 58645562 Problem Attention-deficit hyperactivity disorder, predominantly inattentive type F90.0 Active 56372145 Problem Current nonadherence to medical treatment Z91.19 Active 0139767 Problem Acquired hypothyroidism E03.9 Active 841089470 Problem Essential hypertension I10 Active 86664078 Problem Primary insomnia F51.01 Active 0462726 Problem Migraine with aura and without status migrainosus, not intractable G43.109 Active 7151905 Problem Abnormal liver function K76.89 Active 40138286 Problem Obesity E66.9 Active 958833508 Problem Bipolar 2 disorder F31.81 Active 26847806 Problem Postoperative hypothyroidism E89.0 Active 82939269 Problem Generalized anxiety disorder F41.1 Active 57473554 ALLERGIES No Information ENCOUNTERS Encounter Location Date Diagnosis [facility] [id number] [address] 98[address] Feb, [facility] [address], [place] [address] 8[address] Feb, [facility] [address], [place] [address] 9240 Feb, [facility] [id number], [place] [address] 1613 Nov, Normal physical exam Z00.00 and Enlarged lymph node R59.9 [address], [place] [address] 7206 Nov, Enlarged lymph node R59.9 ; Abnormal liver function K76.89 and Hypothyroid E03.9 [facility] [id number] [place] [address] 89822- 1891 Oct, Bipolar 2 disorder F31.81 [facility] [id number] [place] [address] 19498- 8882 Oct, Sciatica of right side M54.31 and Essential hypertension I10 [facility] [id number] [place] [address] 86763- 4736 Oct, [facility] [id number] [place] [address] 78426- 0934 Aug, Hypothyroid E03.9 [facility] [id number] [place] [address] 90170- 6309 Aug, [facility] [id number] [place] [address] 51654- 9913 Aug, Bipolar 2 disorder F31.81 [facility] [id number] [place] [address] 13152- 9190 05 Aug, 2017 Abnormal liver function K76.89 [facility] [id number] [place] [address] 94796- 1183 Jul, Bipolar 2 disorder F31.81 [facility] [id number] [place] [address] 02727 -3687 Jul, [facility] [id number] [place] [address] 24949- 6282 14 Jul, 2017 Bipolar 2 disorder F31.81 ; Generalized anxiety disorder F41.1 ; Attention-deficit hyperactivity disorder, predominantly inattentive type F90.0 and Current nonadherence to medical treatment Z91.19 [facility] [address] [address] 14 Jul, 2017 Essential hypertension I10 ; Other viral agents as the cause of diseases classified elsewhere B97.89 ; Acute upper respiratory infection, unspecified J06.9 and BMI 40.0-44.9, adult Z68.41 [address] [address] 22247- 8309 Jul, [place] [id number] [place] [address] 08056- 9917 Jul, [place] [address] 07519- 6109 Jun, [place] [address] 54930- 7084 Jun, [place] [address] 97907- 2754 Jun, Dysuria R30.0 ; Urinary tract infection, site not specified N39.0 ; Hematuria, unspecified R31.9 ; Sciatica of right side M54.31 ; Migraine with aura and without status migrainosus, not intractable G43.109 ; Primary insomnia F51.01 ; Essential hypertension I10 and Acquired hypothyroidism E03.9 [address] [id number] [place] [address] 27895- 7419 Jun, Bipolar 2 disorder F31.81 [address] [id number] [place] [address] 06976- 8125 Jun, Bipolar 2 disorder F31.81 [address] [id number] [place] [address] 33417- 0997 May, Sore throat J02.9 ; Acute serous otitis media of left ear, recurrence not specified H65.02 and Hypertension I10 [address] [address] 17152- 7744 05 May, 2017 Bipolar 2 disorder F31.81 [address] [id number] [place] [address] 69005- 7191 Apr, [address] [address] 16278- 7760 Apr, Bipolar 2 disorder F31.81 [facility] [address], [place] [address]- 1150 Mar, [facility] [id number] [place] [address] 71563- 9548 Feb, Bipolar 2 disorder F31.81 ; Attention deficit disorder F90.0 ; COLLEEN (generalized anxiety disorder) F41.1 and Panic disorder [episodic paroxysmal anxiety] without agoraphobia F41.0 [facility] [id number] [place] [address] 15621- 6339 January, Bipolar 2 disorder F31.81 [facility] [id number] [place] [address] 70564- 3021 Dec, [facility] [id number] [place] [address] 19353- 5598 Dec, [facility] [id number] [place] [address] 76242- 1956 Dec, [facility] [id number] [place] [address] 83877- 0191 Dec, Generalized anxiety disorder F41.1 ; Bipolar 2 disorder F31.81 and Panic disorder [episodic paroxysmal anxiety] without agoraphobia F41.0 [facility] [address], [place] [address]- 3777 Dec, [facility] [id number] [place] [address] 39924- 3476 Dec, [facility] [address], [place] [address]- 6280 Nov, [facility] [id number] [place] [address] 29606- 7538 Nov, [facility] [address], [place] [address]- 4077 Nov, [facility] [id number] [place] [address] 96932- 4389 Oct, [facility] [address], [place] [address]- 6316 Oct, [facility] [id number] [place] [address] 254228- 3043 Oct, [facility] [id number] [place] [address] 53229- 3499 Oct, [facility] [id number] [place] [address] 42031- 6615 Oct, [facility] [id number] [place] [address] 96190- 4063 Sep, Bipolar 2 disorder F31.81 ; COLLEEN (generalized anxiety disorder) F41.1 ; Attention deficit disorder F90.0 and Panic disorder [episodic paroxysmal anxiety] without agoraphobia F41.0 [facility] [id number] [place] [address] 16408- 8689 Sep, [facility] [place] [facility] [id number] [place] [address] 65695- 6920 Sep, [facility] [id number] [place] [address] 31131- 4527 Sep, [facility] [address], [place] [address]- 4182 Aug, [facility] [address], [place] [address]- 1069 Aug, [facility] [place] [facility] [address], [place] [address]- 1847 Aug, [facility] [id number] [place] [address] 458592- 5669 Aug, [facility] [address], [place] [address]- 6870 Jul, [facility] [id number] [place] [address] 69391- 4385 Jul, [facility] [id number] [place] [address] 38233- 7129 Jul, [facility] [id number] [place] [address] 40218- 2175 Jun, [facility] [id number] [place] [address] 19386- 9875 Jun, Bipolar 2 disorder F31.81 ; Attention deficit disorder F90.0 ; COLLEEN (generalized anxiety disorder) F41.1 and Panic disorder [episodic paroxysmal anxiety] without agoraphobia F41.0 [facility] [address] 20612- 0876 Jun, [facility] [id number] [place] [address] 04037- 9632 Jun, [facility] [address] 34439- 2112 Jun, Right foot pain M79.671 and Nausea and vomiting in adult R11.2 [facility] [id number] [place] [address] 38555- 8607 May, [facility] [id number] [place] [address] 23875- 2139 May, Other sinusitis, unspecified chronicity J32.9 ; Environmental allergies Z91.09 ; Other chronic pain G89.29 and Sacrococcygeal disorders, not elsewhere classified M53.3 [facility] [id number] [place] [address] 01721 -2995 May, Acute non-recurrent pansinusitis J01.40 and Gastroenteritis K52.9 [facility] [id number] [place] [address] 82095- 4744 May, [facility] [id number] [place] [address] 13258- 7918 May, [facility] [address] 72620- 0196 Apr, Bronchitis J40 [facility] [address], [place] [address]- 7770 Apr, [facility] [id number] [place] [address] 10756- 4919 Apr, [facility] [id number] [place] [address] 71188- 3062 Apr, [facility] [id number] [place] [address] 33056 -0461 Apr, Nausea and vomiting in adult R11.2 [facility] [id number] [place] [address] 09848- 3135 Apr, Nausea and vomiting in adult R11.2 [facility] [address] [place] [address] 58765- 3367 Apr, Bipolar 2 disorder F31.81 ; Generalized anxiety disorder F41.1 ; Panic disorder [episodic paroxysmal anxiety] without agoraphobia F41.0 ; Attention deficit disorder F90.0 and COLLEEN (generalized anxiety disorder) F41.1 [facility] [id number] [place] [address] 01360- 0971 Apr, [facility] [id number] [place] [address] 68804- 5422 Mar, [facility] [id number] [place] [address] 62390- 2862 Mar, [facility] [id number] [place] [address] 97975- 5198 Mar, [facility] [id number] [place] [address] 96804- 1714 Mar, Bipolar 2 disorder F31.81 ; Attention deficit disorder F90.0 ; COLLEEN (generalized anxiety disorder) F41.1 and Panic disorder [episodic paroxysmal anxiety] without agoraphobia F41.0 [facility] [id number] [place] [address] 77344- 5870 Mar, [facility] [id number] [place] [address] 45333- 6503 Feb, Bipolar 2 disorder F31.81 ; Generalized anxiety disorder F41.1 and Attention deficit disorder F90.0 [facility] [id number] [place] [address] 18986- 3341 Feb, Generalized anxiety disorder F41.1 [facility] [id number] [place] [address] 90931- 9717 Feb, Generalized anxiety disorder F41.1 ; Attention deficit disorder F90.0 and Bipolar 2 disorder F31.81 [address] [place] [id number] [place] [address] 42698- 4577 Feb, Bipolar 2 disorder F31.81 ; Generalized anxiety disorder F41.1 ; Attention deficit disorder F90.0 and Insomnia, unspecified type G47.00 [address] [place] [id number] [place] [address] 11764- 6130 Feb, Excessive sweating R61 and Breast lump in upper outer quadrant N63 [facility] [id number] [place] [address] 08430 -5639 January, Low back pain M54.5 ; Other chronic pain G89.29 and Urinary tract infection, site unspecified N39.0 [facility] [address] [place] [address] 45262- 6695 January, Bipolar II disorder F31.81 [facility] [address] [place] [address] 87708- 5307 January, [address] [id number] [place] [address] 78536- 7964 January, Insomnia, unspecified type G47.00 and Grief F43.20 [facility] [id number] [place] [address] 66635- 3488 January, [facility] [id number] [place] [address] 79986- 8019 Dec, [facility] [address] 70683- 5346 Dec, [facility] [id number] [place] [address] 07492- 1668 Dec, Bipolar 2 disorder F31.81 ; Generalized anxiety disorder F41.1 and Attention deficit disorder F90.0 [facility] [address] 93331- 4978 Dec, Sinusitis J32.9 [facility] [address] 39274- 2822 Dec, Sinusitis J32.9 and Hypothyroid E03.9 [facility] [address] 76586- 9135 Dec, [facility] [address] 07072 -9516 Dec, Cough R05 and Allergic rhinitis J30.9 [facility] [id number] [place] [address] 12633- 1756 Nov, Hypertension I10 ; Obesity E66.9 and Acne L70.9 [facility] [id number] [place] [address] 45599- 0009 Nov, [facility] [id number] [place] [address] 48392- 0583 Oct, [facility] [id number] [place] [address] 98931- 3590 Oct, [facility] [address] 88754- 6925 Oct, [facility] [id number] [place] [address] 44290- 4908 Oct, [facility] [id number] [place] [address] 38004- 8122 Sep, Lymphadenitis I88.9 ; Essential hypertension I10 and Acne, unspecified acne type L70.9 [facility] [id number] [place] [address] 85640- 5346 Sep, [facility] [id number] [place] [address] 47785- 7230 Sep, [facility] [id number] [place] [address] 08167- 5675 Sep, [facility] [id number] [place] [address] 03057- 5106 Sep, Acquired hypothyroidism E03.9 [facility] [id number] [place] [address] 62321- 6959 Aug, Acquired hypothyroidism E03.9 [facility] [id number] [place] [address] 93218- 1750 Aug, Furuncle L02.92 [facility] [id number] [place] [address] 64734- 8742 Aug, [facility] [id number] [place] [address] 10815- 0836 Aug, Bipolar 2 disorder F31.81 ; Generalized anxiety disorder F41.1 ; Attention deficit disorder F90.0 and Obesity E66.9 [address] [place] [id number] [place] [address] 71225- 0143 Aug, [facility] [id number] [place] [address] 72817- 9464 Aug, [facility] [id number] [place] [address] 76268- 1083 Aug, Acquired hypothyroidism E03.9 [facility] [id number] [place] [address] 27825- 4476 Jul, Acquired hypothyroidism E03.9 ; Upper respiratory tract infection, unspecified type J06.9 and Nonintractable migraine, unspecified migraine type G43.009 [facility] [address], [place] [address]- 9974 14 Jun, 2015 Acute pharyngitis, unspecified J02.9 [facility] [id number] [place] [address] 491016- 5786 May, Bipolar II disorder 296.89 ; Attention deficit disorder of childhood without mention of hyperactivity 314.00 ; Generalized anxiety disorder 300.02 and Morbid obesity with BMI of 45.0-49.9, adult 278.01 [facility] [id number] [place] [address] 598166- 7475 May, Sinusitis 473.9 [facility] [id number] [place] [address] 31533- 1290 Apr, [facility] [id number] [place] [address] 00421- 3303 Mar, [facility] [id number] [place] [address] 907935- 2782 Mar, Bipolar II disorder 296.89 ; Generalized anxiety disorder 300.02 ; Obesity, unspecified 278.00 and Attention deficit disorder 314.00 [facility] [address] [address]- 0994 Feb, [facility] [address] [address]- 7062 January, [facility] [id number] [place] [address] 93735- 3326 January, [facility] [id number] [place] [address] 81243- 6265 January, [facility] [id number] [place] [address] 54576- 5566 January, [facility] [address], [place] [address]- 5966 Dec, [facility] [id number] [place] [address] 07090- 6874 Dec, [facility] [place] [facility] [address] [id number] [place] [address]- 7682 30 Nov, 2014 [facility] [place] [facility] [address] [id number] [place] [address]- 7278 18 Nov, 2014 [facility] [place] [facility] [address] [id number] [place] [address]- 1970 18 Nov, 2014 [facility] [place] [facility] [address] [id number] [place] [address]- 3394 Nov, [facility] [place] [facility] [address] [id number] [place] [address]- 4968 Nov, [facility] [place] [facility] [address] [id number] [place] [address]- 2223 Nov, [facility] [place] [facility] [address] [id number] [place] [address]- 5416 Nov, [facility] [place] [facility] [address] [id number] [place] [address]- 0815 Nov, [facility] [place] [facility] [address] [id number] [place] [address]- 3006 Nov, [facility] [place] [facility] [address] [id number] [place] [address]- 4394 Nov, [facility] [place] [facility] [address] [id number] [place] [address]- 6303 Nov, [facility] [place] [facility] [address] [id number] [address]- 4678 Nov, [facility] [place] [facility] [address] [id number] [place] [address]- 2559 Nov, [facility] [place] [facility] [address] [id number] [place] [address]- 3730 Nov, [facility] [place] [facility] [address] [id number] [place] [address]- 3242 24 Oct, 2014 [facility] [place] [facility] [address] [id number] [place] [address]- 6000 Oct, 2014 [facility] [place] [facility] [address] [id number] [place] [address]- 5009 Oct, 2014 [facility] [place] [facility] [address] [id number] [place] [address]- 2546 Oct, 2014 [facility] [place] [facility] [address] [id number] [place] [address]- 5016 Oct, 2014 [facility] [place] [facility] [address] [id number] [place] [address]- 2544 Oct, 2014 [facility] [place] [facility] [address] [id number] [place] [address]- 0949 Oct, 2014 [facility] [place] [facility] [address] [id number] [place] [address]- 1778 Oct, 2014 [facility] [place] [facility] [address] [id number] [place] [address]- 6289 Oct, 2014 [facility] [place] [facility] [address] [id number] [place] [address]- 1086 Oct, [facility] [place] [facility] [address] [id number] [place] [address]- 7550 Oct, [facility] [place] [facility] [address] [id number] [place] [address]- 2643 Oct, [facility] [place] [facility] [address] [id number] [place] [address]- 8798 Sep, [facility] [place] [facility] [address] [id number] [place] [address]- 7998 Sep, [facility] [place] [facility] [address] [id number] [place] [address]- 3093 Sep, [facility] [place] [facility] [address] [id number] [place] [address]- 2425 Sep, [facility] [place] [facility] [address] [id number] [place] [address]- 0268 Sep, [facility] [place] [facility] [address] [id number] [place] [address]- 5644 Sep, [facility] [place] [facility] [address] [id number] [place] [address]- 1927 Sep, [facility] [place] [facility] [address] [id number] [place] 1088 Sep, [facility] [place] [facility] [address] [id number] [place] [address]- 8338 Aug, [facility] [place] [facility] [address] [id number] [place] [address]- 8857 Aug, [facility] [place] [facility] [address] [id number] [place] [address]- 8087 Aug, [facility] [place] [facility] [address] [id number] [place] [address]- 9706 Aug, [facility] [place] [facility] [address] [id number] [place] [address]- 6547 Aug, [facility] [place] [facility] [address] [id number] [place] [address]- 5371 Aug, [facility] [place] [facility] [address] [id number] [place] [address]- 8159 Aug, [facility] [place] [facility] [address] [id number] [place] [address] Aug, [facility] [place] [facility] [address] [id number] [place] [address] Aug, [facility] [place] [facility] [address] [id number] [place] [address] Aug, [facility] [place] [facility] [address] [id number] [place] [address] Aug, [facility] [place] [facility] [address] [id number] [place] [address] Aug, [facility] [place] [facility] [address] [id number] [place] [address] Aug, [facility] [place] [facility] [address] [id number] [place] [address] Aug, [facility] [place] [facility] [address] [id number] [place] [address] Jul, [facility] [place] [facility] [address] [id number] [place] [address] Jul, [facility] [place] [facility] [address] [id number] [place] [address] Jul, [facility] [place] [facility] [address] [id number] [place] [address] Jul, [facility] [place] [facility] [address] [id number] [place] [address] Jul, [facility] [place] [facility] [address] [id number] [place] [address] Jul, [facility] [place] [facility] [address] [id number] [place] [address] Jul, [facility] [place] [facility] [address] [id number] [place] [address]65 Jul, [facility] [place] [facility] [address] [id number] [place] [address] Jul, [facility] [place] [facility] [address] [id number] [place] [address] Jul, [facility] [place] [facility] [address] [id number] [place] [address] Jul, [facility] [place] [facility] [address] [id number] [place] [address] Jul, [facility] [place] [facility] [address] [id number] [place] [address] Jun, [facility] [place] [facility] [address] [id number] [place] [address] Jun, [facility] [place] [facility] [address] [id number] [place] [address] 15 Jun, 2014 [facility] [place] [facility] [address] [id number] [place] [address] 14 Jun, 2014 [facility] [place] [facility] [address] [id number] [place] [address] 14 Jun, 2014 [facility] [place] [facility] [address] [id number] [place] [address] 14 Jun, 2014 [facility] [place] [facility] [address] [id number] [place] [address] 14 Jun, 2014 [facility] [place] [facility] [address] [id number] [place] [address] 13 Jun, 2014 [facility] [place] [facility] [address] [id number] [place] [address] 10 Jun, 2014 [facility] [place] [facility] [address] [id number] [place] [address] 10 Jun, 2014 [facility] [place] [facility] [address] [id number] [place] [address] 09 Jun, 2014 [facility] [place] [facility] [address] [id number] [place] [place] [address] 09 Jun, 2014 [facility] [place] [facility] [address] [id number] [place] [address] 06 Jun, 2014 [facility] [place] [facility] [address] [id number], [place] [address] 06 Jun, 2013 [facility] [place] [facility] [address] [id number] [place] [address] 69[address] 16 May, 2014 [facility] [place] [facility] [address] [id number] [place] [address] 5870 15 May, 2014 [facility] [place] [facility] [address] [id number], [place] [address] 15 May, 2014 [facility] [place] [facility] [address] [id number], [place] [address] 15 May, 2013 [facility] [place] [facility] [address] [id number] [place] [address] 2546 15 May, 2013 [facility] [place] [facility] [address] [id number] [place] [address] 2546 15 May, 2013 [facility] [place] [facility] [address] [id number] [place] [address] 7946 15 May, 2013 [facility] [place] [facility] [address] [id number] [place] [address] 0472 12 May, 2013 [facility] [place] [facility] [address] [id number] [place] [address]- 5723 12 May, 2013 [facility] [place] [facility] [address] [id number] [place] [address]- 1596 10 May, 2013 [facility] [place] [facility] [address] [id number] [place] [address]- 6665 10 May, 2013 [facility] [place] [facility] [address] [id number] [place] [address] 0441 02 May, 2013 [facility] [place] [facility] [address] [id number] [place] [address]- 3605 02 May, 2013 [facility] [place] [facility] [address] [id number] [place] [address]- 3315 02 May, 2013 [facility] [place] [facility] [address] [id number] [place] [address] 1983 May, 2013 [facility] [place] [facility] [address] [id number] [place] [address]- 3305 28 Apr, 2014 [facility] [place] [facility] [address] [id number] [place] [address]- 4[address] Apr, [facility] [place] [facility] [address] [id number] [place] [address]- 267[address] Apr, [facility] [place] [facility] [address] [id number] [place] [address]- 1772 14 Apr, 2014 [facility] [place] [facility] [address] [id number] [place] [address] 14 Apr, 2014 [facility] [place] [facility] [address] [id number] [place] [address]- 3[address] Apr, [facility] [place] [facility] [address] [id number] [place] [address]- 114[address] Apr, [facility] [place] [facility] [address] [id number] [place] [address]- 478[address] Apr, [facility] [place] [facility] [address] [id number] [place] [address]- 8099 Apr, [facility] [place] [facility] [address] [id number] [place] [address]- 47[address] Mar, [facility] [place] [facility] [address] [id number] [place] [address]- 0975 Mar, [facility] [place] [facility] [address] [id number] [place] [address]- 2200 Mar, [facility] [place] [facility] [address] [id number] [place] [address]- 8158 Mar, [facility] [place] [facility] [address] [id number] [place] [address]- 9790 Mar, [facility] [place] [facility] [address] [id number] [place] [address]- 5567 Mar, [facility] [place] [facility] [address] [id number] [place] [address]- 6018 Mar, [facility] [place] [facility] [address] [id number] [place] [address]- 9957 Mar, [facility] [place] [facility] [address] [id number] [place] [address]- 7430 Mar, [facility] [place] [facility] [address] [id number] [place] [address]- 0886 Mar, [facility] [place] [facility] [address] [id number] [place] [address]- 2231 Mar, [facility] [place] [facility] [address] [id number] [place] [address]- 2039 Mar, 2013 [facility] [place] [facility] [address] [id number] [place] [address]- 4985 Mar, 2013 [facility] [place] [facility] [address] [id number] [place] [address]- 5843 Mar, 2013 [facility] [place] [facility] [address] [id number] [place] [address]- 7441 Mar, 2013 [facility] [place] [facility] [address] [id number] [place] [address]- 3670 Mar, [facility] [place] [facility] [address] [id number] [place] [address]- 9531 Mar, [facility] [place] [facility] [address] [id number] [place] [address]- 5726 Mar, [facility] [place] [facility] [address] [id number] [place] [address]- 2287 Feb, [facility] [place] [facility] [address] [id number] [place] [address]- 6938 Feb, [facility] [place] [facility] [address] [id number] [place] [address]- 7865 Feb, [facility] [place] [facility] [address] [id number] [place] [address]- 0981 Feb, [facility] [place] [facility] [address] [id number], [place] [address] 4[address] Feb, [facility] [place] [facility] [address] [id number] [place] [address]- 5874 Feb, [facility] [place] [facility] [address] [id number] [place] [address]- 8669 Feb, [facility] [place] [facility] [address] [id number] [place] [address]- 2212 Feb, [facility] [place] [facility] [address] [id number] [place] [address]- 7198 Feb, [facility] [place] [facility] [address] [id number] [place] [address] Feb, [facility] [place] [facility] [address] [id number] [place] [address]- 8094 January, [facility] [place] [facility] [address] [id number] [place] [address]- 9061 January, [facility] [place] [facility] [address] [id number] [place] [address]- 1768 January, [facility] [place] [facility] [address] [id number] [place] [address]- 0840 January, [facility] [place] [facility] [address] [id number] [place] [address]- 8305 January, [facility] [place] [facility] [address] [id number] [place] [address]- 4313 January, [facility] [place] [facility] [address] [id number] [place] [address]- 5498 January, [facility] [place] [facility] [address] [id number] [place] [address]- 6465 January, [facility] [place] [facility] [address] [id number] [place] [address]- 7928 January, [facility] [place] [facility] [address] [id number] [place] [address]- 3828 January, [facility] [place] [facility] [address] [id number] [place] [address]- 1945 January, [facility] [place] [facility] [address] [id number] [place] [address]- 5377 January, [facility] [place] [facility] [address] [id number] [place] [address]- 7335 January, [facility] [place] [facility] [address] [id number] [place] [address]- 5170 January, [facility] [place] [facility] [address] [id number] [place] [address]- 0137 January, [facility] [place] [facility] [address] [id number] [place] [address]- 6137 Dec, [facility] [place] [facility] [address] [id number] [place] [address]- 9946 Dec, [facility] [place] [facility] [address] [id number] [place] [address]- 1926 Dec, [facility] [place] [facility] [address] [id number] [place] [address]- 5755 Dec, [facility] [place] [facility] [address] [id number] [place] [address]- 9851 Dec, [facility] [place] [facility] [address] [id number] [place] [address]- 0994 Dec, [facility] [place] [facility] [address] [id number] [place] [address]- 6697 Nov, [facility] [place] [facility] [address] [id number] [place] [address]- 5016 Nov, [facility] [place] [facility] [address] [id number] [place] [address]- 3444 Nov, [facility] [place] [facility] [address] [id number] [place] [address]- 8081 Nov, [facility] [place] [facility] [address] [id number] [place] [address]- 2466 Nov, [facility] [place] [facility] [address] [id number] [place] [address]- 8330 Oct, [facility] [place] [facility] [address] [id number] [place] [address]- 1298 Oct, [facility] [place] [facility] [address] [id number] [place] [address]- 3825 Oct, [facility] [place] [facility] [address] [id number] [place] [address]- 5020 13 Oct, 2013 [facility] [place] [facility] [address] [id number] [place] [address]- 0472 Oct, [facility] [place] [facility] [address] [id number] [place] [address]- 6287 06 Oct, 2013 [facility] [place] [facility] [address] [id number] [place] [address]- 4166 Oct, [facility] [place] [facility] [address] [id number] [place] [address]- 4822 Oct, [facility] [place] [facility] [address] [id number] [place] [address]- 7153 Oct, [facility] [place] [facility] [address] [id number] [place] [address]- 5568 Oct, [facility] [place] [facility] [address] [id number] [place] [address]- 6289 Oct, [facility] [place] [facility] [address] [id number] [place] [address]- 4970 Sep, [facility] [place] [facility] [address] [id number] [place] [address]- 9685 Sep, [facility] [place] [facility] [address] [facility] [id number] [place] [address]- 1536 Sep, [facility] [place] [facility] [address] [id number] [place] [address]- 3376 Sep, [facility] [place] [facility] [address] [id number] [place] [address]- 8273 Aug, [facility] [place] [facility] [address] [id number] [place] [address]- 4259 Aug, [facility] [place] [facility] [address] [id number] [place] [address]- 7210 Jul, [facility] [place] [facility] [address] [id number] [place] [address]- 9422 Jul, [facility] [place] [facility] [address] [id number] [place] [address]- 2542 Jul, [facility] [place] [facility] [address] [id number] [place] [address]- 2546 Jul, [facility] [place] [facility] [address] [id number] [place] [address]- 2546 Jul, [facility] [place] [facility] [address] [id number] [place] [address]- 2546 Jun, [facility] [place] [facility] [address] [id number] [place] [address]- 7942 Jun, [facility] [place] [facility] [address] [id number] [place] [address]- 2546 May, [facility] [place] [facility] [address] [id number] [place] [address]- 3157 Mar, [facility] [place] [facility] [address] [id number] [place] [address]- 6229 Mar, [facility] [place] [facility] [address] [id number] [place] [address]- 8655 Mar, [facility] [place] [facility] [address] [id number] [place] [address]- 8016 Feb, [facility] [place] [facility] [address] [id number] [place] [address]- 2546 January, [facility] [place] [facility] [address] [id number] [place] [address]- 2546 Dec, [facility] [place] [facility] [address] [id number] [place] [address]- 2544 Nov, [facility] [place] [facility] [address] [id number] [place] [address]- 2546 Nov, [facility] [place] [facility] [address] [id number] [place] [address]- 2546 Nov, [facility] [place] [facility] [address] [id number] [place] [address]- 2546 Oct, [facility] [address] [facility] [id number], [place] [address]- 2546 Oct, [facility] [address] [facility] [id number], [place] [address]- 2546 Oct, [facility] [address] [facility] [id number], [place] [address]- 2546 Oct, [facility] [address] [facility] [id number], [place] [address]- 2546 Sep, IMMUNIZATIONS No Known Immunizations SOCIAL HISTORY Never Assessed REASON FOR VISIT Other PLAN OF CARE VITAL SIGNS MEDICATIONS Unknown [...]
--- OUTSIDE RECORDS SUMMARY | 2018-09-23 22:17 | XMS REPORT ---
Author Author BALJIT OSEI Organization [facility] Address [address] [place] [address] Care Team Providers Care In Classroom Tutor Name Role Phone BALJIT OSEI Unavailable PROBLEMS Type Condition ICD9-CM Code KQI56-SW Code Onset Dates Condition Status SNOMED Code Problem Acne L70.9 Active 09792303 Problem Sciatica of right side M54.31 Active 25577647 Problem Panic disorder [episodic paroxysmal anxiety] without agoraphobia F41.0 Active 19746615 Problem Attention-deficit hyperactivity disorder, predominantly inattentive type F90.0 Active 47764033 Problem Current nonadherence to medical treatment Z91.19 Active 0656469 Problem Acquired hypothyroidism E03.9 Active 894019904 Problem Essential hypertension I10 Active 90092891 Problem Primary insomnia F51.01 Active 8791046 Problem Migraine with aura and without status migrainosus, not intractable G43.109 Active 5329492 Problem Abnormal liver function K76.89 Active 27380502 Problem Obesity E66.9 Active 982412545 Problem Bipolar 2 disorder F31.81 Active 36586018 Problem Postoperative hypothyroidism E89.0 Active 03467351 Problem Generalized anxiety disorder F41.1 Active 08813873 ALLERGIES Substance Reaction Event Type Date Status Penicillin V Potassium hives Drug Allergy Jun, Active Benzodiazepines Failed UDS Non Drug Allergy Jun, Active Hydrocodone Failed UDS Non Drug Allergy Jun, Active ENCOUNTERS Encounter Location Date Diagnosis [facility] [address] [facility] [id number] [address] Nov, Normal physical exam Z00.00 and Enlarged lymph node R59.9 [facility] [id number] [address] Nov, Enlarged lymph node R59.9 ; Abnormal liver function K76.89 and Hypothyroid E03.9 [facility] [id number] [place] [address] 54091- 1562 Oct, Bipolar 2 disorder F31.81 [place] [id number] [place] [address] 87626- 3786 Oct, Sciatica of right side M54.31 and Essential hypertension I10 [place] [id number] [place] [address] 70780- 0890 Oct, [place] [id number] [place] [address] 59613- 9716 Aug, Hypothyroid E03.9 [place] [address] 58219- 8884 Aug, [place] [id number] [place] [address] 34450- 4283 Aug, Bipolar 2 disorder F31.81 [place] [id number] [place] [address] 91070- 8780 05 Aug, 2017 Abnormal liver function K76.89 [place] [id number] [place] [address] 81291- 7670 Jul, Bipolar 2 disorder F31.81 [facility] [place] [id number] [place] [address] 82379 -6296 Jul, [place] [id number] [place] [address] 80786- 7171 Jul, Bipolar 2 disorder F31.81 ; Generalized anxiety disorder F41.1 ; Attention-deficit hyperactivity disorder, predominantly inattentive type F90.0 and Current nonadherence to medical treatment Z91.19 [facility] [id number] [place] [address] 94900 -1274 Jul, Essential hypertension I10 ; Other viral agents as the cause of diseases classified elsewhere B97.89 ; Acute upper respiratory infection, unspecified J06.9 and BMI 40.0-44.9, adult Z68.41 [place] [id number] [place] [address] 79035- 3481 Jul, [facility] [id number] [place] [address] 33367- 2431 Jul, [facility] [id number] [place] [address] 81351- 7326 Jun, [facility] [id number] [place] [address] 47236- 2190 Jun, [facility] [id number] [place] [address] 88417- 2589 Jun, Dysuria R30.0 ; Urinary tract infection, site not specified N39.0 ; Hematuria, unspecified R31.9 ; Sciatica of right side M54.31 ; Migraine with aura and without status migrainosus, not intractable G43.109 ; Primary insomnia F51.01 ; Essential hypertension I10 and Acquired hypothyroidism E03.9 [place] [id number] [place] [address] 62707- 1562 Jun, Bipolar 2 disorder F31.81 [place] [id number] [place] [address] 15183- 6651 Jun, Bipolar 2 disorder F31.81 [place] [id number] [place] [address] 06303- 5534 May, Sore throat J02.9 ; Acute serous otitis media of left ear, recurrence not specified H65.02 and Hypertension I10 [place] [id number] [place] [address] 91376- 2797 May, Bipolar 2 disorder F31.81 [facility] [id number] [place] [address] 19785- 6818 Apr, [place] [id number] [place] [address] 34888- 1049 Apr, Bipolar 2 disorder F31.81 [facility] [id number] [place] [address] 53201- 8219 Mar, [facility] [address], [place] [address] 9528 Feb, Bipolar 2 disorder F31.81 ; Attention deficit disorder F90.0 ; COLLEEN (generalized anxiety disorder) F41.1 and Panic disorder [episodic paroxysmal anxiety] without agoraphobia F41.0 [facility] [address], [place] [address] 8221 January, Bipolar 2 disorder F31.81 [facility] [id number] [place] [address] 26245- 8067 Dec, [facility] [id number] [place] [address] 98270- 6456 Dec, [facility] [id number] [place] [address] 99088- 4206 Dec, [facility] [id number] [place] [address] 36874- 7686 Dec, Generalized anxiety disorder F41.1 ; Bipolar 2 disorder F31.81 and Panic disorder [episodic paroxysmal anxiety] without agoraphobia F41.0 [facility] [address], [place] [address] 1100 Dec, [facility] [address], [place] [address]- 0523 Dec, [facility] [address], [place] [address]- 3278 Nov, [facility] [address], [place] [address] 5033 Nov, [facility] [address], [place] [address] 9050 Nov, [facility] [address], [place] [address]- 8779 Oct, [facility] [address], [place] [address]- 8874 Oct, [facility] [id number] [address] 8560 Oct, [facility] [id number] [place] [address] 41683- 5750 Oct, [facility] [id number] [address] 6616 Oct, [facility] [id number] [place] [address] 48110- 5845 Sep, Bipolar 2 disorder F31.81 ; COLLEEN (generalized anxiety disorder) F41.1 ; Attention deficit disorder F90.0 and Panic disorder [episodic paroxysmal anxiety] without agoraphobia F41.0 [facility] [id number] [place] [address] 19143- 3090 Sep, [facility] [id number] [place] [address] 22057- 6528 Sep, [facility] [id number] [place] [address] 67618- 9954 Sep, [facility] [address], [place] [address]- 0575 Aug, [facility] [id number] [address]- 1030 Aug, [facility] [address], [place] [address]- 4429 Aug, [facility] [address], [place] [address]- 3119 Aug, [facility] [address], [place] [address]- 0665 Jul, [facility] [address] 7873 Jul, [facility] [address] 1652 Jul, [facility] [id number] [place] [address] 76848- 7963 Jun, [facility] [id number] [place] [address] 93923- 2293 Jun, Bipolar 2 disorder F31.81 ; Attention deficit disorder F90.0 ; COLLEEN (generalized anxiety disorder) F41.1 and Panic disorder [episodic paroxysmal anxiety] without agoraphobia F41.0 [facility] [address] 08884- 4407 Jun, [facility] [address] 14568- 2288 Jun, [place] [address] 55356- 6242 Jun, Right foot pain M79.671 and Nausea and vomiting in adult R11.2 [place] [address] 39746- 9028 May, [facility] [id number] [place] [address] 31933- 6413 May, Other sinusitis, unspecified chronicity J32.9 ; Environmental allergies Z91.09 ; Other chronic pain G89.29 and Sacrococcygeal disorders, not elsewhere classified M53.3 [facility] [id number] [place] [address] 56833 -8126 May, Acute non-recurrent pansinusitis J01.40 and Gastroenteritis K52.9 [facility] [id number] [place] [address] 26366- 7073 May, [facility] [address] 51714- 5260 May, [facility] [id number] [place] [address] 35699- 1496 Apr, Bronchitis J40 [facility] [address] 79701- 9920 Apr, [facility] [address], [place] [address]- 9233 Apr, [facility] [address], [place] [address]- 3441 Apr, [facility] [address], [place] [address] -9735 Apr, Nausea and vomiting in adult R11.2 [facility] [id number] [place] [address] 28558- 8010 Apr, Nausea and vomiting in adult R11.2 [facility] [address], [place] [address]- 3013 Apr, Bipolar 2 disorder F31.81 ; Generalized anxiety disorder F41.1 ; Panic disorder [episodic paroxysmal anxiety] without agoraphobia F41.0 ; Attention deficit disorder F90.0 and COLLEEN (generalized anxiety disorder) F41.1 [facility] [id number] [place] [address] 20273- 0830 Apr, [facility] [address], [place] [address]- 3137 Mar, [facility] [address], [place] [address]- 3336 Mar, [facility] [address], [place] [address]- 0035 Mar, [facility] [address], [place] [address]- 0373 Mar, Bipolar 2 disorder F31.81 ; Attention deficit disorder F90.0 ; COLLEEN (generalized anxiety disorder) F41.1 and Panic disorder [episodic paroxysmal anxiety] without agoraphobia F41.0 [facility] [address], [place] [address]- 8794 Mar, [facility] [address], [place] [address]- 6263 Feb, Bipolar 2 disorder F31.81 ; Generalized anxiety disorder F41.1 and Attention deficit disorder F90.0 [facility] [id number] [place] [address] 08524- 3629 Feb, Generalized anxiety disorder F41.1 [facility] [id number] [place] [address] 85997- 1388 Feb, Generalized anxiety disorder F41.1 ; Attention deficit disorder F90.0 and Bipolar 2 disorder F31.81 [place] [id number] [place] [address] 79287- 9974 Feb, Bipolar 2 disorder F31.81 ; Generalized anxiety disorder F41.1 ; Attention deficit disorder F90.0 and Insomnia, unspecified type G47.00 [place] [id number] [place] [address] 31223- 8637 Feb, Excessive sweating R61 and Breast lump in upper outer quadrant N63 [facility] [id number] [place] [address] 32945 -0547 January, Low back pain M54.5 ; Other chronic pain G89.29 and Urinary tract infection, site unspecified N39.0 [place] [id number] [place] [address] 54393- 7792 January, Bipolar II disorder F31.81 [facility] [id number] [place] [address] 77228- 4078 January, [place] [id number] [place] [address] 73240- 2760 January, Insomnia, unspecified type G47.00 and Grief F43.20 [facility] [id number] [place] [address] 76037- 2980 January, [facility] [id number] [place] [address] 01091- 2343 Dec, [place] [id number] [place] [address] 90625- 5286 Dec, [place] [id number] [place] [address] 63241- 9678 Dec, Bipolar 2 disorder F31.81 ; Generalized anxiety disorder F41.1 and Attention deficit disorder F90.0 [facility] [address] 95828- 9221 Dec, Sinusitis J32.9 [facility] [address] 67662- 7317 Dec, Sinusitis J32.9 and Hypothyroid E03.9 [facility] [address] 49050- 3222 Dec, [facility] [address] 22222 -9769 Dec, Cough R05 and Allergic rhinitis J30.9 [facility] [address] 52473- 7664 Nov, Hypertension I10 ; Obesity E66.9 and Acne L70.9 [facility] [address] 25908- 3340 Nov, [place] [address] 61832- 6607 Oct, [facility] [address] 02631- 8070 Oct, [place] [address] 30748- 6109 Oct, [facility] [address] 64358- 3910 Oct, [place] [address] 66694- 8398 Sep, Lymphadenitis I88.9 ; Essential hypertension I10 and Acne, unspecified acne type L70.9 [facility] [address] 69302- 0212 Sep, [facility] [address], [place] [address]- 3498 Sep, [facility] [id number] [place] [address] 62855- 4042 Sep, [facility] [address], [place] [address]- 8039 Sep, Acquired hypothyroidism E03.9 [facility] [id number] [place] [address] 03263- 3681 Aug, Acquired hypothyroidism E03.9 [facility] [id number] [place] [address] 71914- 8424 Aug, Furuncle L02.92 [facility] [id number] [place] [address] 35125- 8478 Aug, [facility] [id number] [place] [address] 78828- 6177 Aug, Bipolar 2 disorder F31.81 ; Generalized anxiety disorder F41.1 ; Attention deficit disorder F90.0 and Obesity E66.9 [facility] [address] [place] [address] 51365- 3118 Aug, [facility] [id number] [place] [address] 36689- 2944 Aug, [facility] [id number] [place] [address] 53090- 7631 Aug, Acquired hypothyroidism E03.9 [facility] [address] [place] [address] 43506- 4306 30 Jul, 2015 Acquired hypothyroidism E03.9 ; Upper respiratory tract infection, unspecified type J06.9 and Nonintractable migraine, unspecified migraine type G43.009 [facility] [address], [place] [address]- 3154 14 Jun, 2015 Acute pharyngitis, unspecified J02.9 [facility] [address], [place] [address]- 8271 May, Bipolar II disorder 296.89 ; Attention deficit disorder of childhood without mention of hyperactivity 314.00 ; Generalized anxiety disorder 300.02 and Morbid obesity with BMI of 45.0-49.9, adult 278.01 [facility] [address], [place] [address]- 2296 May, Sinusitis 473.9 [facility] [id number] [place] [address] 69583- 6283 Apr, [facility] [id number] [place] [address] 99644- 2867 Mar, [facility] [id number] [place] [address] 63067- 7146 Mar, Bipolar II disorder 296.89 ; Generalized anxiety disorder 300.02 ; Obesity, unspecified 278.00 and Attention deficit disorder 314.00 [facility] [id number] [place] [address] 17040- 9371 Feb, [facility] [id number] [place] [address] 45266- 1649 January, [facility] [id number] [place] [address] 06812- 8576 January, [facility] [address] [address]- 3856 January, [facility] [id number] [place] [address] 65780- 8946 January, [facility] [id number] [place] [address] 58601- 7426 Dec, [facility] [id number] [place] [address] 78128- 1636 Dec, [facility] [address], [place] [address]- 4456 Nov, [facility] [id number] [place] [address] 75412- 0214 18 Nov, 2014 [facility] [place] [facility] [address] [id number] [place] [address]- 9462 18 Nov, 2014 [facility] [place] [facility] [address] [id number] [place] [address]- 3729 Nov, [facility] [place] [facility] [address] [id number] [place] [address]- 7558 11 Nov, 2014 [facility] [place] [facility] [address] [id number] [place] [address]- 1502 Nov, [facility] [place] [facility] [address] [id number] [place] [address]- 4987 Nov, [facility] [place] [facility] [address] [id number] [place] [address]- 8543 Nov, [facility] [place] [facility] [address] [id number] [place] [address]- 6135 Nov, [facility] [place] [facility] [address] [id number] [place] [address]- 7328 Nov, [facility] [place] [facility] [address] [id number] [place] [address]- 7063 Nov, [facility] [place] [facility] [address] [facility] [id number] [place] [address]- 2669 Nov, [facility] [place] [facility] [address] [id number] [place] [address]- 9515 Nov, [facility] [place] [facility] [address] [id number] [place] [address]- 3615 Nov, [facility] [place] [facility] [address] [id number] [place] [address]- 5133 Oct, [facility] [place] [facility] [address] [id number] [place] [address]- 0429 Oct, [facility] [place] [facility] [address] [facility] [id number] [place] [address]- 6664 Oct, [facility] [place] [facility] [address] [id number] [place] [address]- 9101 Oct, 2014 [facility] [place] [facility] [address] [id number] [place] [address]- 2791 Oct, 2014 [facility] [place] [facility] [address] [id number] [place] [address]- 1914 Oct, 2014 [facility] [place] [facility] [address] [id number] [place] [address]- 8971 Oct, 2014 [facility] [place] [facility] [address] [id number] [place] [address]- 0762 Oct, 2014 [facility] [place] [facility] [address] [id number] [place] [address]- 3049 Oct, 2014 [facility] [place] [facility] [address] [id number] [place] [address]- 7088 Oct, [facility] [place] [facility] [address] [id number] [place] [address]- 6732 Oct, [facility] [place] [facility] [address] [id number] [place] [address]- 8571 Oct, [facility] [place] [facility] [address] [facility] [id number] [place] [address]- 8961 Sep, [facility] [place] [facility] [address] [id number], [place] [address]- 7495 Sep, [facility] [place] [facility] [address] [id number], [place] [address]- 1513 Sep, [facility] [place] [facility] [address] [id number] [place] [address]- 1963 Sep, [facility] [place] [facility] [address] [id number] [place] [address]- 0588 Sep, [facility] [place] [facility] [address] [facility] [id number] [place] [address]- 6692 Sep, [facility] [place] [facility] [address] [id number] [place] [address]- 2425 Sep, [facility] [place] [facility] [address] [id number] [place] [address]- 3881 Sep, [facility] [place] [facility] [address] [id number] [place] [address]- 7410 Aug, [facility] [place] [facility] [address] [id number] [place] [address]- 1817 Aug, [facility] [place] [facility] [address] [id number] [place] [address]- 2905 Aug, [facility] [place] [facility] [address] [id number] [place] [address]- 1147 Aug, [facility] [place] [facility] [address] [id number] [place] [address] Aug, [facility] [place] [facility] [address] [id number] [place] [address] Aug, [facility] [place] [facility] [address] [id number] [place] [address] Aug, [facility] [place] [facility] [address] [id number] [place] [address] Aug, [facility] [place] [facility] [address] [id number] [place] [address] Aug, [facility] [place] [facility] [address] [id number] [place] [address] Aug, [facility] [place] [facility] [address] [id number] [place] [address] Aug, [facility] [place] [facility] [address] [id number] [place] [address] Aug, [facility] [place] [facility] [address] [id number] [place] [address] Aug, [facility] [place] [facility] [address] [id number] [place] [address] Aug, [facility] [place] [facility] [address] [id number] [place] [address] Jul, [facility] [place] [facility] [address] [id number] [place] [address] Jul, [facility] [place] [facility] [address] [id number] [place] [address] Jul, [facility] [place] [facility] [address] [id number] [place] [address] Jul, [facility] [place] [facility] [address] [id number] [place] [address] Jul, [facility] [place] [facility] [address] [id number] [place] [address] Jul, [facility] [place] [facility] [address] [id number] [place] [address] Jul, [facility] [place] [facility] [address] [id number] [place] [address] Jul, [facility] [place] [facility] [address] [id number] [place] [address] Jul, [facility] [place] [facility] [address] [id number] [place] [address] Jul, [facility] [place] [facility] [address] [id number] [place] [address] Jul, [facility] [place] [facility] [address] [id number] [place] [address] Jul, [facility] [place] [facility] [address] [id number] [place] [address] Jun, [facility] [place] [facility] [address] [id number] [place] [address] 16 Jun, 2014 [facility] [place] [facility] [address] [id number] [place] [address] 15 Jun, 2014 [facility] [place] [facility] [address] [id number], [place] [address] 14 Jun, 2014 [facility] [place] [facility] [address] [id number] [place] [address] 14 Jun, 2014 [facility] [place] [facility] [address] [id number] [place] [address] 14 Jun, 2014 [facility] [place] [facility] [address] [id number] [place] [address] 14 Jun, 2014 [facility] [place] [facility] [address] [id number] [place] [address] 13 Jun, 2014 [facility] [place] [facility] [address] [id number] [place] [address]- [address] 10 Jun, 2014 [facility] [place] [facility] [address] [id number] [place] [address] 10 Jun, 2014 [facility] [place] [facility] [address] [id number] [place] [address] 09 Jun, 2014 [facility] [place] [facility] [address] [id number], [place] [address] 09 Jun, 2014 [facility] [place] [facility] [address] [address] [id number], [place] [address] 06 Jun, 2014 [facility] [place] [facility] [address] [id number], [place] [address] 06 Jun, 2014 [facility] [place] [facility] [address] [id number], [place] [address] 16 May, 2014 [facility] [place] [facility] [address] [id number], [place] [address] 15 May, 2014 [facility] [place] [facility] [address] [id number], [place] [address] 15 May, 2014 [facility] [place] [facility] [address] [id number], [place] [address] 15 May, 2014 [facility] [place] [facility] [address] [id number], [place] [address] 15 May, 2014 [facility] [place] [facility] [address] [id number] [place] [address] 15 May, 2013 [facility] [place] [facility] [address] [id number] [place] [address] 15 May, 2013 [facility] [place] [facility] [address] [id number] [place] [address]46 12 May, 2013 [facility] [place] [facility] [address] [id number] [place] [address] 12 May, 2013 [facility] [place] [facility] [address] [id number] [place] [address] 2547 10 May, 2013 [facility] [place] [facility] [address] [id number] [place] [address] 6708 10 May, 2013 [facility] [place] [facility] [address] [id number] [place] [address]- 1595 02 May, 2013 [facility] [place] [facility] [address] [id number] [place] [address] 02 May, 2013 [facility] [place] [facility] [address] [id number] [place] [address]- 2400 02 May, 2013 [facility] [place] [facility] [address] [id number] [place] [address]- 1631 May, 2013 [facility] [place] [facility] [address] [id number] [place] [address]185 Apr, [facility] [place] [facility] [address] [id number] [place] [address] 2547 Apr, [facility] [place] [facility] [address] [id number] [place] [address]- 3566 Apr, [facility] [place] [facility] [address] [id number] [place] [address] 1839 Apr, [facility] [place] [facility] [address] [id number] [place] [address] Apr, [facility] [place] [facility] [address] [id number] [place] [address] 4416 Apr, [facility] [place] [facility] [address] [id number] [place] [address] 6927 Apr, [facility] [place] [facility] [address] [id number] [place] [address]- 0635 Apr, [facility] [place] [facility] [address] [id number] [place] [address]- 7852 Apr, [facility] [place] [facility] [address] [id number] [place] [address]- 3586 Mar, [facility] [place] [facility] [address] [id number] [place] [address] 0558 Mar, [facility] [place] [facility] [address] [id number] [place] [address] 3993 Mar, [facility] [place] [facility] [address] [id number] [place] [address] 6420 Mar, [facility] [place] [facility] [address] [id number] [place] [address]- 0039 Mar, [facility] [place] [facility] [address] [id number] [place] [address] 5018 Mar, [facility] [place] [facility] [address] [id number] [place] [address]- 4569 Mar, [facility] [place] [facility] [address] [id number] [place] [address]- 0670 Mar, [facility] [place] [facility] [address] [id number] [place] [address]- 9803 Mar, [facility] [place] [facility] [address] [id number] [place] [address]- 1775 Mar, [facility] [place] [facility] [address] [id number] [place] [address]- 4466 Mar, [facility] [place] [facility] [address] [id number] [place] [address]- 0125 Mar, [facility] [place] [facility] [address] [id number] [place] [address]- 0294 Mar, 2013 [facility] [place] [facility] [address] [id number] [place] [address] 5551 Mar, 2013 [facility] [place] [facility] [address] [id number] [place] [address]- 6379 Mar, [facility] [place] [facility] [address] [id number] [place] [address]- 6981 Mar, [facility] [place] [facility] [address] [id number] [place] [address]- 4234 Mar, [facility] [place] [facility] [address] [id number] [place] [address]- 1215 Mar, [facility] [place] [facility] [address] [id number] [place] [address]- 5491 Feb, [facility] [place] [facility] [address] [id number] [place] [address] 2709 Feb, [facility] [place] [facility] [address] [id number] [place] [address] 6526 Feb, [facility] [place] [facility] [address] [id number] [place] [address]- 9071 Feb, [facility] [place] [facility] [address] [facility] [id number] [place] [address]- 0167 Feb, [facility] [place] [facility] [address] [id number] [place] [address]- 4156 Feb, [facility] [place] [facility] [address] [id number] [place] [address]- 4265 Feb, [facility] [place] [facility] [address] [id number] [place] [address]- 2570 Feb, [facility] [place] [facility] [address] [id number] [place] [address] 5220 Feb, [facility] [place] [facility] [address] [facility] [id number] [place] [address]- 6268 Feb, [facility] [place] [facility] [address] [id number] [place] [address] 6306 January, [facility] [address] [id number] [place] [address] January, [facility] [place] [facility] [address] [id number] [place] [address] 4366 January, [facility] [address] [id number] [place] [address] 7504 January, [facility] [place] [facility] [address] [id number] [place] [address] 4957 January, [facility] [place] [facility] [address] [id number] [place] [address]- 4230 January, [facility] [place] [facility] [address] [id number] [place] [address] 7018 January, [facility] [address] [id number] [place] [address] 7333 January, [facility] [address] [id number] [place] [address] 1914 January, [facility] [place] [facility] [address] [id number] [place] [address] 3659 January, [facility] [place] [facility] [address] [id number] [place] [address]- 8904 January, [facility] [place] [facility] [address] [id number] [place] [address]- 1486 January, [facility] [place] [facility] [address] [id number] [place] [address]- 8766 January, [facility] [place] [facility] [address] [id number] [place] [address]- 8146 January, [facility] [place] [facility] [address] [id number] [place] [address]- 0606 January, [facility] [place] [facility] [address] [id number] [place] [address]- 8186 Dec, [facility] [place] [facility] [address] [id number] [place] [address]- 5684 Dec, [facility] [place] [facility] [address] [id number] [place] [address]- 7979 Dec, [facility] [place] [facility] [address] [id number] [place] [address]- 1641 Dec, [facility] [place] [facility] [address] [id number] [place] [address]- 8235 Dec, [facility] [place] [facility] [address] [id number] [place] [address]- 4062 Dec, [facility] [place] [facility] [address] [id number] [place] [address]- 9093 Nov, [facility] [place] [facility] [address] [id number] [place] [address]- 9487 Nov, [facility] [place] [facility] [address] [id number] [place] [address]- 5461 Nov, [facility] [place] [facility] [address] [id number] [place] [address]- 2237 Nov, [facility] [place] [facility] [address] [id number] [place] [address]- 5041 Nov, [facility] [place] [facility] [address] [id number] [place] [address]- 9828 Oct, [facility] [place] [facility] [address] [id number] [place] [address]- 7963 Oct, [facility] [place] [facility] [address] [id number] [place] [address]- 8462 Oct, [facility] [place] [facility] [address] [id number] [place] [address]- 1569 Oct, [facility] [place] [facility] [address] [id number] [place] [address]- 1270 Oct, [facility] [place] [facility] [address] [id number] [place] [address]- 6003 06 Oct, 2013 [facility] [place] [facility] [address] [id number] [place] [address]- 3172 Oct, [facility] [place] [facility] [address] [id number] [place] [address]- 8323 Oct, [facility] [place] [facility] [address] [id number] [place] [address]- 9882 Oct, [facility] [place] [facility] [address] [id number] [place] [address]- 0348 Oct, [facility] [place] [facility] [address] [id number] [place] [address]- 6544 Oct, [facility] [place] [facility] [address] [id number] [place] [address]- 4002 Sep, [facility] [place] [facility] [address] [id number] [place] [address]- 7659 Sep, [facility] [place] [facility] [address] [id number] [place] [address]- 9997 Sep, [facility] [place] [facility] [address] [id number] [place] [address]- 8159 Sep, [facility] [place] [facility] [address] [id number] [place] [address]- 9881 Aug, [facility] [place] [facility] [address] [id number] [place] [address]- 0863 Aug, [facility] [place] [facility] [address] [id number] [place] [address]- 5778 Jul, [facility] [place] [facility] [address] [id number] [place] [address]- 6104 Jul, [facility] [place] [facility] [address] [id number] [place] [address]- 7653 Jul, [facility] [place] [facility] [address] [id number] [place] [address]- 5458 Jul, [facility] [place] [facility] [address] [id number] [place] [address] 2541 Jul, [facility] [place] [facility] [address] [id number] [place] [address]- 2546 Jun, [facility] [place] [facility] [address] [id number] [place] [address] 2546 Jun, [facility] [place] [facility] [address] [id number] [place] [address] 2541 May, [facility] [place] [facility] [address] [id number] [place] [address]- 5917 Mar, [facility] [place] [facility] [address] [id number] [place] [address]- 6076 Mar, [facility] [place] [facility] [address] [id number] [place] [address]- 2546 Mar, [facility] [place] [facility] [address] [id number] [place] [address]- 6061 Feb, [facility] [place] [facility] [address] [id number] [place] [address]- 6016 January, [facility] [place] [facility] [address] [id number] [place] [address] 2546 Dec, [facility] [place] [facility] [address] [id number] [place] [address]- 9409 Nov, [facility] [place] [facility] [address] [id number] [place] [address] 2548 Nov, [facility] [place] [facility] [address] [id number] [place] [address]- 2544 Nov, [facility] [place] [facility] [address] [id number] [place] [address] 2546 Oct, [facility] [place] [facility] [address] [id number] [place] [address]- 2546 Oct, [facility] [place] [facility] [address] [facility] [id number] [place] [address]- 2546 Oct, [facility] [address] [facility] [id number], [place] [address] 2546 Oct, [facility] [address] [facility] [id number] [place] [address]- 2546 Sep, IMMUNIZATIONS Vaccine Route Administration Date Status PHENERGAN 50MG/ML IM Intramuscular Jun 25, 2017 Administered TORADOL (IM) 60 MG/2ML (UP TO 15 MG) IM Intramuscular Jun 25, 2017 Administered SOCIAL HISTORY Never Assessed REASON FOR VISIT MED F/U, head hurts, entire body aches, vomiting, possible UTI--Anne Longoria MA PLAN OF CARE Activity Details Follow Up 3 Months Reason:BP VITAL SIGNS Height 59 in 2017-06-25 Weight 212.5 lbs 2017-06-25 Temperature 98.4 degrees Fahrenheit 2017-06-25 Heart Rate 86 bpm 2017-06-25 Respiratory Rate 20 2017-06-25 BMI 42.92 kg/m2 2017-06-25 Blood pressure systolic 142 mmHg 2017-06-25 Blood pressure diastolic 84 mmHg 2017-06-25 MEDICATIONS Medication Instructions Dosage Frequency Start Date End Date Duration Status Rozerem 8 MG Orally Once a day for sleep 1 tablet at bedtime as needed Feb, 90 days Active Loxapine Succinate 10 mg Orally 1 tab in AM and 3 tabs at HS 1 capsule Active Guanfacine HCl 1 MG TAKE ONE TABLET BY MOUTH IN THE MORNING, ONE TABLET AT 2:00PM AND TWO TABLETS AT BEDTIME Active Gabapentin 100 MG Orally 3 times a day 1 tablet 8h January, 10 days Active Levothyroxine Sodium 200 MCG Orally Once a day 1 tablet 24h 30 Active Norvasc 5 mg Orally Once a day 1 tablet 24h May, 30 day(s) Active Lisinopril 20 mg Orally Once a day 1 tablet 24h Active Maxalt 10 MG Orally Once a day 1 tablet as needed 24h 30 days Active Elavil 25 MG Orally Once a day 3 tablet 24h Dec, 30 days Active Bactrim DS 800-160 MG Orally Twice a day 1 tablet 12h Jun,Jun 07 days Active RESULTS Name Result Date Reference Range UA LONG DIP (IN HOUSE) 2017-06-25 Lot # [id number] Exp date 05/10/18 Clarity clear Color orange Odor no GLU trace JAVY negative KET negative SG 1.015 BLO trace-intact pH 6.5 Protein trace URO 1.0 NIT positive JESSICA negative Lot # [id number] Exp date 05/10/18 TSH 2017-06-25 TSH 81.420 0.450-4.500 Written Authorization 2017-06-25 Written Authorization T4 FREE 2017-06-25 T4,Free(Direct) 0.48 0.82-1.77 CULTURE, URINE 2017-06-25 Urine Culture, Routine Final report Result 1 No growth CMP 2017-06-25 Glucose, Serum 89 65-99 BUN 6 6-20 Creatinine, Serum 0.70 0.57-1.00 eGFR If NonAfricn Am 119 >59 eGFR If Africn Am 137 >59 BUN/Creatinine Ratio 9 9-23 Sodium, Serum 139 134-144 Potassium, Serum 3.9 3.5-5.2 Chloride, Serum 96 96-106 Carbon Dioxide, Total 27 18-29 Calcium, Serum 10.0 8.7-10.2 Protein, Total, Serum 7.3 6.0-8.5 Albumin, Serum 4.5 3.5-5.5 Globulin, Total 2.8 1.5-4.5 A/G Ratio 1.6 1.2-2.2 Bilirubin, Total 0.4 0.0-1.2 Alkaline Phosphatase, S 69 39-117 AST (SGOT) 189 0-40 ALT (SGPT) 67 0-32 PROCEDURES Procedure Date Ordered Result Body Site URINALYSIS, AUTO, W/O SCOPE Jun 25, 2017 ASSAY THYROID STIM HORMONE Jun 25, 2017 PHENERGAN 50MG/ML Jun 25, 2017 THER/PROPH/DIAG INJ, SC/IM Jun 25, 2017 COMPREHEN METABOLIC PANEL Jun 25, 2017 TORADOL (IM) 60 MG/2ML (UP TO 15 MG) Jun 25, 2017 VENIPUNCT, ROUTINE* Jun 25, 2017 INSTRUCTIONS MEDICATIONS ADMINISTERED No Known Medications MEDICAL [...]
--- OUTSIDE RECORDS SUMMARY | 2018-09-23 22:19 | XMS REPORT ---
Author Author MERY GRIFFIN [facility] Address [address] [place] [address] Care Team Providers Care Golf Ball Molder Name Role Phone GRIFFINNENAMERY Unavailable PROBLEMS Type Condition ICD9-CM Code [id number] Code Onset Dates Condition Status SNOMED Code Problem Acne L70.9 Active 71585408 Problem Sciatica of right side M54.31 Active 27878557 Problem Panic disorder [episodic paroxysmal anxiety] without agoraphobia F41.0 Active 68732622 Problem Attention-deficit hyperactivity disorder, predominantly inattentive type F90.0 Active 89891635 Problem Current nonadherence to medical treatment Z91.19 Active 5128714 Problem Acquired hypothyroidism E03.9 Active 662818075 Problem Essential hypertension I10 Active 78497402 Problem Primary insomnia F51.01 Active 0872043 Problem Migraine with aura and without status migrainosus, not intractable G43.109 Active 6831429 Problem Abnormal liver function K76.89 Active 78122722 Problem Obesity E66.9 Active 061035298 Problem Bipolar 2 disorder F31.81 Active 88351344 Problem Postoperative hypothyroidism E89.0 Active 68928343 Problem Generalized anxiety disorder F41.1 Active 76306960 ALLERGIES Substance Reaction Event Type Date Status Sulfacetamide Sodium Unknown Drug Allergy Jul, Active Penicillin V Potassium hives Drug Allergy Jul, Active Benzodiazepines Failed UDS Non Drug Allergy Jul, Active Hydrocodone Failed UDS Non Drug Allergy Jul, Active ENCOUNTERS Encounter Location Date Diagnosis [facility] [address] [facility] [id number] [address] Nov, Normal physical exam Z00.00 and Enlarged lymph node R59.9 [facility] [address] [facility] [id number] [address] Nov, Enlarged lymph node R59.9 ; Abnormal liver function K76.89 and Hypothyroid E03.9 [place] [address] [place] [address] 53222- 8822 Oct, Bipolar 2 disorder F31.81 [place] [address] [place] [id number] [place] [address] 08245- 5935 Oct, Sciatica of right side M54.31 and Essential hypertension I10 [place] [id number] [place] [address] 97760- 6967 Oct, [place] [address] [place] [id number] [place] [address] 91378- 3919 Aug, Hypothyroid E03.9 [place] [id number] [place] [address] 57704- 7897 Aug, [place] [address] [place] [id number] [place] [address] 93965- 6532 Aug, Bipolar 2 disorder F31.81 [place] [address] [place] [id number] [place] [address] 55377- 2794 Aug, Abnormal liver function K76.89 [place] [id number] [place] [address] 18484- 7126 Jul, Bipolar 2 disorder F31.81 [facility] [address] [place] [address] 50491 -4066 Jul, [place] [id number] [place] [address] 15090- 8591 Jul, Bipolar 2 disorder F31.81 ; Generalized anxiety disorder F41.1 ; Attention-deficit hyperactivity disorder, predominantly inattentive type F90.0 and Current nonadherence to medical treatment Z91.19 [facility] [place] [id number] [place] [address] 58782 -4094 14 Jul, 2017 Essential hypertension I10 ; Other viral agents as the cause of diseases classified elsewhere B97.89 ; Acute upper respiratory infection, unspecified J06.9 and BMI 40.0-44.9, adult Z68.41 [id number] [address] Jul, [facility] [address] [place] [id number] [place] [address] 78426- 7869 Jul, [facility] [address] [place] [id number] [place] [address] 52114- 2743 Jun, [place] [address] 16358- 0553 Jun, [place] [address] [place] [id number] [place] [address] 62717- 4909 Jun, Dysuria R30.0 ; Urinary tract infection, site not specified N39.0 ; Hematuria, unspecified R31.9 ; Sciatica of right side M54.31 ; Migraine with aura and without status migrainosus, not intractable G43.109 ; Primary insomnia F51.01 ; Essential hypertension I10 and Acquired hypothyroidism E03.9 [place] [address] [place] [id number] [place] [address] 57809- 6631 Jun, Bipolar 2 disorder F31.81 [place] [address] [place] [id number] [place] [address] 36830- 7734 Jun, Bipolar 2 disorder F31.81 [place] [address] [place] [id number] [place] [address] 26269- 8296 May, Sore throat J02.9 ; Acute serous otitis media of left ear, recurrence not specified H65.02 and Hypertension I10 [place] [address] [place] [address] 97846- 6401 May, Bipolar 2 disorder F31.81 [place] [address] [place] [id number] [place] [address] 05348- 0220 Apr, [place] [address] [place] [id number] [place] [address] 10791- 2618 Apr, Bipolar 2 disorder F31.81 [place] [address] [place] [id number] [place] [address] 53717- 1367 Mar, [facility] [address] [address] 0279 Feb, Bipolar 2 disorder F31.81 ; Attention deficit disorder F90.0 ; COLLEEN (generalized anxiety disorder) F41.1 and Panic disorder [episodic paroxysmal anxiety] without agoraphobia F41.0 [facility] [address] [address] 4112 January, Bipolar 2 disorder F31.81 [facility] [address] [place] [address] 61750- 9575 Dec, [facility] [address] [place] [id number] [place] [address] 37277- 4246 Dec, [facility] [address] [place] [id number] [place] [address] 21965- 6505 Dec, [facility] [address] [place] [id number] [place] [address] 02877- 3503 Dec, Generalized anxiety disorder F41.1 ; Bipolar 2 disorder F31.81 and Panic disorder [episodic paroxysmal anxiety] without agoraphobia F41.0 [facility] [address] [place] [address] 04878- 2458 Dec, [facility] [address] [address] 8552 Dec, [facility] [address] [address] 4187 Nov, [facility] [address] [address]- 7266 Nov, [facility] [address] [place] [id number] [address]- 8548 Nov, [facility] [address] [address]- 5630 Oct, [facility] [id number] [place] [address] 19423- 7661 Oct, [facility] [address] [address]- 5813 Oct, [facility] [address] [place] [id number] [place] [address] 83928- 7358 Oct, [facility] [address] [place] [id number] [place] [address] 81740- 6364 Oct, [facility] [address] [place] [id number] [place] [address] 83880- 2910 Sep, Bipolar 2 disorder F31.81 ; COLLEEN (generalized anxiety disorder) F41.1 ; Attention deficit disorder F90.0 and Panic disorder [episodic paroxysmal anxiety] without agoraphobia F41.0 [facility] [id number] [place] [address] 60692- 4720 Sep, [facility] [address] [place] [id number] [place] [address] 70696- 5096 Sep, [facility] [address] [address]- 2993 Sep, [facility] [address] [place] [id number] [place] [address] 21497- 9381 Aug, [facility] [address] [place] [address] [address]- 4758 Aug, [facility] [address] [address]- 2004 Aug, [facility] [address] [address] Aug, [facility] [id number] [place] [address] 76708- 4119 Jul, [facility] [address] [place] [id number] 0804 Jul, [facility] [address] [address]- 5631 Jul, [facility] [address] [place] [id number] [place] [address] 01327- 9637 Jun, [facility] [address] [place] [id number] [place] [address] 27081- 5922 Jun, Bipolar 2 disorder F31.81 ; Attention deficit disorder F90.0 ; COLLEEN (generalized anxiety disorder) F41.1 and Panic disorder [episodic paroxysmal anxiety] without agoraphobia F41.0 [facility] [address] 81467- 4273 Jun, [facility] [address] [place] [id number] [place] [address] 59850- 3552 Jun, [place] [address] [place] [id number] [place] [address] 09747- 8107 Jun, Right foot pain M79.671 and Nausea and vomiting in adult R11.2 [facility] [address] [place] [id number] [place] [address] 63494- 7138 May, [facility] [address] [place] [id number] [place] [address] 13042- 6411 May, Other sinusitis, unspecified chronicity J32.9 ; Environmental allergies Z91.09 ; Other chronic pain G89.29 and Sacrococcygeal disorders, not elsewhere classified M53.3 [facility] [address] [place] [id number] [place] [address] 63851 -1531 May, Acute non-recurrent pansinusitis J01.40 and Gastroenteritis K52.9 [facility] [address] [place] [id number] [place] [address] 60622- 0351 May, [facility] [address] 26131- 9812 May, [facility] [address] [place] [id number] [place] [address] 46236- 7008 Apr, Bronchitis J40 [facility] [address] [place] [id number] [place] [address] 68362- 9220 Apr, [facility] [address] [address]- 8232 Apr, [facility] [address] [address]- 5302 Apr, [facility] [address] [address]2608 Apr, Nausea and vomiting in adult R11.2 [facility] [address] [place] [id number] [place] [address] 32819- 6952 Apr, Nausea and vomiting in adult R11.2 [facility] [address] [place] [address] 87710- 1723 Apr, Bipolar 2 disorder F31.81 ; Generalized anxiety disorder F41.1 ; Panic disorder [episodic paroxysmal anxiety] without agoraphobia F41.0 ; Attention deficit disorder F90.0 and COLLEEN (generalized anxiety disorder) F41.1 [facility] [address] [address]- 3641 Apr, [facility] [id number] [place] [address] 61605- 0559 Mar, [facility] [address] [address]- 6606 Mar, [facility] [address] [address]- 2360 Mar, [facility] [address] [address]- 1206 Mar, Bipolar 2 disorder F31.81 ; Attention deficit disorder F90.0 ; COLLEEN (generalized anxiety disorder) F41.1 and Panic disorder [episodic paroxysmal anxiety] without agoraphobia F41.0 [facility] [address] [address]- 5636 Mar, [facility] [address] [address]- 8511 Feb, Bipolar 2 disorder F31.81 ; Generalized anxiety disorder F41.1 and Attention deficit disorder F90.0 [facility] [address] [place] [id number] [place] [address] 02715- 3094 Feb, Generalized anxiety disorder F41.1 [facility] [address] [place] [id number] [place] [address] 11527- 7265 Feb, Generalized anxiety disorder F41.1 ; Attention deficit disorder F90.0 and Bipolar 2 disorder F31.81 [facility] [address] [place] [id number] [place] [address] 70223- 1496 Feb, Bipolar 2 disorder F31.81 ; Generalized anxiety disorder F41.1 ; Attention deficit disorder F90.0 and Insomnia, unspecified type G47.00 [facility] [address] [place] [id number] [place] [address] 60035- 1731 Feb, Excessive sweating R61 and Breast lump in upper outer quadrant N63 [facility] [address] [place] [id number] [place] [address] 02529 -6267 January, Low back pain M54.5 ; Other chronic pain G89.29 and Urinary tract infection, site unspecified N39.0 [facility] [address] [place] [id number] [place] [address] 69760- 5977 January, Bipolar II disorder F31.81 [facility] [address] [place] [id number] [place] [address] 71997- 0380 January, [facility] [address] [place] [id number] [place] [address] 76384- 6532 January, Insomnia, unspecified type G47.00 and Grief F43.20 [facility] [address] [place] [id number] [place] [address] 35274- 9856 January, [facility] [address] [place] [id number] [place] [address] 89157- 5600 Dec, [facility] [address] [place] [id number] [place] [address] 25078- 2109 Dec, [facility] [address] [place] [id number] [place] [address] 04113- 5047 Dec, Bipolar 2 disorder F31.81 ; Generalized anxiety disorder F41.1 and Attention deficit disorder F90.0 [facility] [address] [place] [id number] [place] [address] 88380- 3556 Dec, Sinusitis J32.9 [facility] [address] 21547- 4417 Dec, Sinusitis J32.9 and Hypothyroid E03.9 [place] [address] 98147- 4328 Dec, [facility] [address] 77917 -4298 Dec, Cough R05 and Allergic rhinitis J30.9 [facility] [address] 49771- 3770 Nov, Hypertension I10 ; Obesity E66.9 and Acne L70.9 [place] [address] 10909- 4459 Nov, [place] [address] 69881- 9064 Oct, [place] [address] 10236- 2107 Oct, [place] [address] 01889- 2296 Oct, [place] [address] 29156- 6808 Oct, [place] [address] 63547- 0682 Sep, Lymphadenitis I88.9 ; Essential hypertension I10 and Acne, unspecified acne type L70.9 [place] [address] 68217- 4035 Sep, [facility] [address] [address]- 9381 Sep, [facility] [address] [place] [address] 25555- 8366 Sep, [facility] [address] [place] [address] 35741- 0648 Sep, Acquired hypothyroidism E03.9 [facility] [address] [place] [id number] [place] [address] 10691- 2665 Aug, Acquired hypothyroidism E03.9 [facility] [address] [place] [id number] [place] [address] 91886- 7661 Aug, Furuncle L02.92 [facility] [address] [place] [id number] [place] [address] 39667- 1845 Aug, [facility] [address] [place] [id number] [place] [address] 99827- 1464 Aug, Bipolar 2 disorder F31.81 ; Generalized anxiety disorder F41.1 ; Attention deficit disorder F90.0 and Obesity E66.9 [facility] [address] [place] [id number] [place] [address] 20760- 3482 Aug, [facility] [address] [place] [address] 25662- 5584 Aug, [facility] [address] [place] [address] 17697- 5545 Aug, Acquired hypothyroidism E03.9 [facility] [address] [place] [address] 52235- 1360 Jul, Acquired hypothyroidism E03.9 ; Upper respiratory tract infection, unspecified type J06.9 and Nonintractable migraine, unspecified migraine type G43.009 [facility] [address] [address]- 6311 14 Jun, 2015 Acute pharyngitis, unspecified J02.9 [facility] [address] 4708 May, Bipolar II disorder 296.89 ; Attention deficit disorder of childhood without mention of hyperactivity 314.00 ; Generalized anxiety disorder 300.02 and Morbid obesity with BMI of 45.0-49.9, adult 278.01 [facility] [address] [address]- 7946 May, Sinusitis 473.9 [facility] [address] [place] [id number] [place] [address] 933636- 4248 Apr, [facility] [address] [place] [id number] [place] [address] 63076- 7000 Mar, [facility] [address] [place] [id number] [place] [address] 21085- 1619 Mar, Bipolar II disorder 296.89 ; Generalized anxiety disorder 300.02 ; Obesity, unspecified 278.00 and Attention deficit disorder 314.00 [facility] [address] [address] 5973 Feb, [facility] [address] [address]- 8738 January, [facility] [address] [place] [address] 5976 January, [facility] [address] [address]- 1926 January, [facility] [address] [place] [address] [address]- 3496 January, [facility] [address] [address]- 2442 Dec, [facility] [address] [address]- 7649 Dec, [facility] [address] [address]- 2286 Nov, [facility] [address] [address]- 0053 18 Nov, 2014 [facility] [place] [facility] [address] [id number] [place] [address]- 3460 18 Nov, 2014 [facility] [place] [facility] [address] [id number] [place] [address]- 2245 11 Nov, 2014 [facility] [place] [facility] [address] [id number] [place] [address]- 8540 11 Nov, 2014 [facility] [place] [facility] [address] [id number] [place] [address]- 4131 11 Nov, 2014 [facility] [place] [facility] [address] [id number] [place] [address]- 2818 Nov, [facility] [place] [facility] [address] [id number] [place] [address]- 9554 Nov, [facility] [place] [facility] [address] [id number] [place] [address]- 6650 Nov, [facility] [place] [facility] [address] [id number] [place] [address]- 1945 10 Nov, 2014 [facility] [place] [facility] [address] [id number] [place] [address]- 0959 10 Nov, 2014 [facility] [place] [facility] [address] [id number] [place] [address]- 0092 Nov, [facility] [place] [facility] [address] [id number] [place] [address]- 5278 Nov, 2014 [facility] [place] [facility] [address] [id number] [place] [address]- 4246 Nov, [facility] [place] [facility] [address] [id number] [place] [address]- 0898 Oct, [facility] [place] [facility] [address] [id number] [place] [address]- 7076 Oct, [facility] [place] [facility] [address] [id number] [place] [address]- 8520 Oct, 2014 [facility] [place] [facility] [address] [id number] [place] [address]- 4277 Oct, [facility] [place] [facility] [address] [id number] [place] [address]- 6566 Oct, 2014 [facility] [place] [facility] [address] [facility] [id number] [place] [address]- 4007 Oct, 2014 [facility] [place] [facility] [address] [id number] [place] [address]- 8402 Oct, 2014 [facility] [place] [facility] [address] [id number] [place] [address]- 6440 Oct, 2014 [facility] [place] [facility] [address] [facility] [id number] [place] [address]- 2976 Oct, [facility] [place] [facility] [address] [facility] [id number] [place] [address]- 6985 Oct, [facility] [place] [facility] [address] [facility] [id number] [place] [address]- 8661 Oct, [facility] [place] [facility] [address] [facility] [id number] [place] [address]- 9088 Oct, [facility] [place] [facility] [address] [facility] [id number] [place] [address]- 6934 Sep, [facility] [place] [facility] [address] [facility] [id number] [place] [address]- 8157 Sep, [facility] [place] [facility] [address] [facility] [id number] [address]- [address] Sep, [facility] [place] [facility] [address] [id number] [address] Sep, [facility] [place] [facility] [address] [facility] [id number] [place] [address] Sep, [facility] [place] [facility] [address] [facility] [id number] [place] [address] Sep, [facility] [place] [facility] [address] [id number] [place] [address] Sep, [facility] [place] [facility] [address] [id number] [place] [address] Sep, [facility] [place] [facility] [address] [id number] [place] [address] Aug, [facility] [place] [facility] [address] [id number] [place] [address] Aug, [facility] [place] [facility] [address] [id number] [place] [address] Aug, [facility] [place] [facility] [address] [id number] [place] [address] Aug, [facility] [place] [facility] [address] [id number] [place] [address] Aug, [facility] [place] [facility] [address] [id number] [place] [address] Aug, [facility] [place] [facility] [address] [id number] [place] [address] Aug, [facility] [place] [facility] [address] [id number] [place] [address] Aug, [facility] [place] [facility] [address] [id number] [place] [address] Aug, [facility] [place] [facility] [address] [id number] [place] [address] Aug, [facility] [place] [facility] [address] [id number] [place] [address] Aug, [facility] [place] [facility] [address] [id number] [place] [address] Aug, [facility] [place] [facility] [address] [id number] [place] [address] Aug, [facility] [place] [facility] [address] [id number] [place] [address] Aug, [facility] [place] [facility] [address] [id number] [place] [address] Jul, [facility] [place] [facility] [address] [id number] [place] [address] Jul, [facility] [place] [facility] [address] [id number] [place] [address] Jul, [facility] [place] [facility] [address] [id number] [place] [address] Jul, [facility] [place] [facility] [address] [id number] [place] [address] Jul, [facility] [place] [facility] [address] [id number] [place] [address] Jul, [facility] [place] [facility] [address] [id number] [place] [address] Jul, [facility] [place] [facility] [address] [id number] [place] [address] Jul, [facility] [place] [facility] [address] [id number] [place] [address] Jul, [facility] [place] [facility] [address] [id number] [place] [address] Jul, [facility] [place] [facility] [address] [id number] [address] Jul, [facility] [place] [facility] [address] [id number] [address] Jul, [facility] [place] [facility] [address] [id number] [place] [address] Jun, [facility] [place] [facility] [address] [id number] [address] Jun, [facility] [place] [facility] [address] [id number] [address] 15 Jun, 2014 [facility] [place] [facility] [address] [id number] [place] [address] 14 Jun, 2013 [facility] [place] [facility] [address] [id number] [place] [address] 1009 14 Jun, 2014 [facility] [place] [facility] [address] [id number] [place] [address] 5279 14 Jun, 2014 [facility] [place] [facility] [address] [id number] [place] [address] 2526 14 Jun, 2014 [facility] [place] [facility] [address] [id number] [place] [address] 6081 13 Jun, 2014 [facility] [place] [facility] [address] [id number] [place] [address]- 5756 10 Jun, 2014 [facility] [place] [facility] [address] [id number] [place] [address] 2347 10 Jun, 2014 [facility] [place] [facility] [address] [id number] [place] [address] 3852 09 Jun, 2014 [facility] [place] [facility] [address] [id number] [place] [address] 9540 09 Jun, 2014 [facility] [place] [facility] [address] [id number] [place] [address]- 7100 06 Jun, 2014 [facility] [place] [facility] [address] [id number] [place] [address]- 8559 06 Jun, 2014 [facility] [place] [facility] [address] [id number] [place] [address]- 3884 16 May, 2013 [facility] [place] [facility] [address] [id number] [address] 15 May, 2013 [facility] [place] [facility] [address] [id number] [place] [address]- 7632 15 May, 2014 [facility] [place] [facility] [address] [id number] [place] [address]- 1846 15 May, 2013 [facility] [place] [facility] [address] [id number] [place] [address]- 6538 15 May, 2013 [facility] [place] [facility] [address] [id number] [place] [address]- 2224 15 May, 2013 [facility] [place] [facility] [address] [id number] [place] [address]- 7665 15 May, 2013 [facility] [place] [facility] [address] [id number] [place] [address]- 7655 12 May, 2013 [facility] [place] [facility] [address] [id number] [place] [address]- 3692 12 May, 2013 [facility] [place] [facility] [address] [id number] [place] [address] 8957 10 May, 2013 [facility] [place] [facility] [address] [id number] [place] [address]- 5177 10 May, 2013 [facility] [place] [facility] [address] [id number] [place] [address]- 2099 02 May, 2013 [facility] [place] [facility] [address] [id number] [place] [address]- 1673 02 May, 2013 [facility] [place] [facility] [address] [id number] [place] [address]- 5766 May, [facility] [place] [facility] [address] [id number] [place] [address]- 5102 May, 2013 [facility] [place] [facility] [address] [id number] [place] [address]- 3593 Apr, [facility] [place] [facility] [address] [id number] [place] [address]- 9462 Apr, [facility] [place] [facility] [address] [id number] [place] [address]- 3140 Apr, [facility] [place] [facility] [address] [id number] [place] [address]- 2792 Apr, [facility] [place] [facility] [address] [id number] [place] [address]- 3619 Apr, [facility] [place] [facility] [address] [id number] [place] [address]- 7421 Apr, [facility] [place] [facility] [address] [id number] [place] [address] 8[address] Apr, [facility] [place] [facility] [address] [id number] [place] [address] 5[address] Apr, [facility] [place] [facility] [address] [id number] [place] [address]- 1023 Apr, [facility] [place] [facility] [address] [id number] [place] [address] 6504 Mar, [facility] [place] [facility] [address] [id number] [place] [address]- 5309 Mar, [facility] [place] [facility] [address] [id number] [place] [address]- 5689 Mar, [facility] [place] [facility] [address] [id number] [place] [address]- 5246 Mar, [facility] [place] [facility] [address] [id number] [place] [address]- 1607 Mar, [facility] [place] [facility] [address] [id number] [place] [address]- 3355 Mar, [facility] [place] [facility] [address] [id number] [place] [address]- 9320 Mar, [facility] [place] [facility] [address] [id number] [place] [address]- 4497 Mar, [facility] [place] [facility] [address] [id number] [place] [address]- 3349 Mar, [facility] [place] [facility] [address] [id number] [place] [address]- 2375 Mar, [facility] [place] [facility] [address] [id number] [place] [address]- 6192 Mar, [facility] [place] [facility] [address] [id number] [place] [address]- 9752 Mar, [facility] [place] [facility] [address] [id number] [place] [address]- 8754 Mar, 2013 [facility] [place] [facility] [address] [id number] [place] [address]- 9847 Mar, 2013 [facility] [place] [facility] [address] [id number] [place] [address]- 3169 Mar, 2013 [facility] [place] [facility] [address] [id number] [place] [address]- 6475 Mar, 2013 [facility] [place] [facility] [address] [id number] [place] [address]- 8859 Mar, [facility] [place] [facility] [address] [id number] [place] [address]- 1555 Mar, [facility] [place] [facility] [address] [id number] [place] [address]- 5806 Feb, [facility] [place] [facility] [address] [id number] [place] [address]- 5147 Feb, [facility] [place] [facility] [address] [id number] [place] [address]- 6948 Feb, [facility] [place] [facility] [address] [id number] [place] [address]- 0232 Feb, [facility] [place] [facility] [address] [id number] [place] [address]- 2447 Feb, [facility] [place] [facility] [address] [id number] [place] [address]- 8685 Feb, [facility] [place] [facility] [address] [id number] [place] [address]- 6524 Feb, [facility] [place] [facility] [address] [id number] [place] [address]- 7517 Feb, [facility] [place] [facility] [address] [id number] [place] [address]- 6810 Feb, [facility] [place] [facility] [address] [id number] [place] [address]- 3199 Feb, [facility] [address] [id number] [place] [address]- 9074 January, [facility] [place] [facility] [address] [id number] [place] [address]- 4210 January, [facility] [place] [facility] [address] [id number] [place] [address]- 6354 January, [facility] [place] [facility] [address] [id number] [place] [address]- 0789 January, [facility] [place] [facility] [address] [id number] [place] [address]- 5542 January, [facility] [place] [facility] [address] [id number] [place] [address]- 2283 January, [facility] [place] [facility] [address] [id number] [place] [address]- 6543 January, [facility] [place] [facility] [address] [id number] [place] [address]- 1366 January, [facility] [place] [facility] [address] [id number] [place] [address]- 3092 January, [facility] [place] [facility] [address] [id number] [place] [address] 1992 January, [facility] [place] [facility] [address] [id number] [place] [address]- 9398 January, [facility] [place] [facility] [address] [id number] [place] [address]- 8330 January, [facility] [place] [facility] [address] [id number] [place] [address]- 0632 January, [facility] [place] [facility] [address] [id number] [place] [address]- 0199 January, [facility] [place] [facility] [address] [id number] [place] [address] January, [facility] [place] [facility] [address] [id number] [place] [address]- 0088 Dec, [facility] [place] [facility] [address] [id number] [place] [address]- 4579 Dec, [facility] [place] [facility] [address] [id number] [place] [address]- 4618 Dec, [facility] [place] [facility] [address] [facility] [id number] [place] [address]- 8214 Dec, [facility] [place] [facility] [address] [id number] [place] [address]- 5559 Dec, [facility] [place] [facility] [address] [id number] [place] [address]- 6935 Dec, [facility] [place] [facility] [address] [facility] [id number] [place] [address]- 5587 Nov, [facility] [place] [facility] [address] [facility] [id number] [place] [address]- 6872 Nov, [facility] [place] [facility] [address] [facility] [id number] [place] [address]- 6799 Nov, [facility] [place] [facility] [address] [facility] [id number] [place] [address]- 3586 Nov, [facility] [place] [facility] [address] [facility] [id number] [place] [address]- 3613 Nov, [facility] [place] [facility] [address] [facility] [id number] [place] [address]- 0290 Oct, [facility] [place] [facility] [address] [facility] [id number] [place] [address]- 6505 Oct, [facility] [place] [facility] [address] [id number] [place] [address]- 6874 Oct, [facility] [place] [facility] [address] [facility] [id number] [place] [address]- 9381 Oct, [facility] [place] [facility] [address] [facility] [id number] [place] [address]- 5223 Oct, [facility] [place] [facility] [address] [id number] [place] [address]- 6658 Oct, [facility] [place] [facility] [address] [id number] [place] [address]- 1115 Oct, [facility] [place] [facility] [address] [id number] [place] [address]- 2640 Oct, [facility] [place] [facility] [address] [id number] [place] [address]- 8107 Oct, [facility] [place] [facility] [address] [id number] [place] [address]- 4744 Oct, [facility] [place] [facility] [address] [id number] [place] [address]- 4348 Oct, [facility] [place] [facility] [address] [id number] [place] [address]- 9960 Sep, [facility] [place] [facility] [address] [id number] [place] [address]- 5680 Sep, [facility] [place] [facility] [address] [id number] [place] [address]- 3234 Sep, [facility] [place] [facility] [address] [id number] [place] [address]- 4963 Sep, [facility] [place] [facility] [address] [id number] [address]- 6220 Aug, [facility] [place] [facility] [address] [id number] [place] [address]- 8569 Aug, [facility] [place] [facility] [address] [id number] [place] [address]- 8486 Jul, [facility] [place] [facility] [address] [id number] [place] [address]- 4991 Jul, [facility] [place] [facility] [address] [id number] [place] [address]- 8426 Jul, [facility] [place] [facility] [address] [id number] [place] [address] 2546 Jul, [facility] [address] [id number] [place] [address]- 5949 Jul, [facility] [place] [facility] [address] [id number] [place] [address]- 5985 Jun, [facility] [address] [id number] [place] [address]- 5766 Jun, [facility] [place] [facility] [address] [id number] [place] [address]- 8041 May, [facility] [address] [id number] [place] [address]- 7561 Mar, [facility] [place] [facility] [address] [id number] [place] [address]- 9667 Mar, [facility] [address] [id number] [place] [address]- 3358 Mar, [facility] [address] [id number] [place] [address]- 4832 Feb, [facility] [place] [facility] [address] [id number] [place] [address]- 4717 January, [facility] [address] [facility] [id number] [place] [address]- 8817 Dec, [facility] [place] [facility] [address] [id number] [place] [address]- 3709 Nov, [facility] [place] [facility] [address] [id number] [place] [address]- 2548 Nov, [facility] [place] [facility] [address] [id number] [place] [address]- 8233 Nov, [facility] [place] [facility] [address] [id number] [place] [address] 2546 Oct, [facility] [place] [facility] [address] [id number] [place] [address]- 9166 Oct, [facility] [address] [facility] [id number] [place] [address]- 6806 Oct, [facility] [address] [facility] [id number] [address]- 0896 Oct, [facility] [address] [facility] [id number] [address]- 6368 Sep, IMMUNIZATIONS No Known Immunizations SOCIAL HISTORY Never Assessed REASON FOR VISIT sore throat, lots of coughing. headache, runny nose small amount of D/V JStrasserRN PLAN OF CARE Activity Details Follow Up prn Reason: VITAL SIGNS Height 59 in 2017-07-24 Weight 211.2 lbs 2017-07-24 Temperature 97.5 degrees Fahrenheit 2017-07-24 Heart Rate 100 bpm 2017-07-24 Respiratory Rate 20 2017-07-24 BMI 42.65 kg/m2 2017-07-24 Blood pressure systolic 140 mmHg 2017-07-24 Blood pressure diastolic 100 mmHg 2017-07-24 MEDICATIONS Medication Instructions Dosage Frequency Start Date [...] 2:00PM AND TWO TABLETS AT BEDTIME Active Elavil 25 MG Orally Once a day 3 tablet 24h Dec, 30 days Active Maxalt 10 MG Orally Once a day 1 tablet as needed 24h 30 days Active Levothyroxine Sodium 200 MCG Orally Once a day 1 tablet 24h 30 Active Gabapentin 100 MG Orally 3 times a day 1 tablet 8h January, 10 days Active Lisinopril 20 mg Orally Once a day 1 tablet 24h 30 days Active Levothyroxine Sodium 25 MCG Orally Once a day 1 tablet on an empty stomach in the morning 24h Jun, 30 day(s) Active Norvasc 5 MG Orally Once a day 1 tablet 24h May, 30 day(s) Active RESULTS No Results PROCEDURES [...]
--- OUTSIDE RECORDS SUMMARY | 2018-09-23 22:20 | XMS REPORT ---
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 Role Phone BALJIT OSEI Unavailable PROBLEMS Type Condition ICD9-CM Code [id number] Code Onset Dates Condition Status SNOMED Code Problem Acne L70.9 Active 04691335 Problem Sciatica of right side M54.31 Active 74528414 Problem Panic disorder [episodic paroxysmal anxiety] without agoraphobia F41.0 Active 11473608 Problem Attention-deficit hyperactivity disorder, predominantly inattentive type F90.0 Active 74639784 Problem Current nonadherence to medical treatment Z91.19 Active 3735490 Problem Acquired hypothyroidism E03.9 Active 378340549 Problem Essential hypertension I10 Active 87588356 Problem Primary insomnia F51.01 Active 6624676 Problem Migraine with aura and without status migrainosus, not intractable G43.109 Active 6474018 Problem Abnormal liver function K76.89 Active 62161811 Problem Obesity E66.9 Active 446962922 Problem Bipolar 2 disorder F31.81 Active 30809301 Problem Postoperative hypothyroidism E89.0 Active 53646208 Problem Generalized anxiety disorder F41.1 Active 30589245 ALLERGIES No Information ENCOUNTERS Encounter Location Date Diagnosis [facility] [address] [address] Mar, [facility] [address] [address] 120[address] Mar, [facility] [id number] [place] [address] 47262- 8236 Feb, Bipolar 2 disorder F31.81 ; Generalized anxiety disorder F41.1 ; Attention-deficit hyperactivity disorder, predominantly inattentive type F90.0 and Current nonadherence to medical treatment Z91.19 [facility] [id number] [place] [address] 60451- 5666 Feb, [facility] [id number] [place] [address] 09224- 7416 Nov, Normal physical exam Z00.00 and Enlarged lymph node R59.9 [facility] [id number] [place] [address] 43841 2546 Nov, Enlarged lymph node R59.9 ; Abnormal liver function K76.89 and Hypothyroid E03.9 [facility] [id number] [place] [address] 19040- 4489 Oct, Bipolar 2 disorder F31.81 [facility] [id number] [place] [address] 76786- 7510 Oct, Sciatica of right side M54.31 and Essential hypertension I10 [facility] [id number] [place] [address] 33033- 1016 Oct, [facility] [id number] [place] [address] 25695- 6680 Aug, Hypothyroid E03.9 [facility] [id number] [place] [address] 16903- 5300 Aug, [facility] [address] [place] [address] 36530- 5511 Aug, Bipolar 2 disorder F31.81 [facility] [id number] [place] [address] 78445- 6454 05 Aug, 2017 Abnormal liver function K76.89 [facility] [address] [address] 4419 Jul, Bipolar 2 disorder F31.81 [facility] [address] [address] Jul, [facility] [address], [place] [address]- 9551 Jul, Bipolar 2 disorder F31.81 ; Generalized anxiety disorder F41.1 ; Attention-deficit hyperactivity disorder, predominantly inattentive type F90.0 and Current nonadherence to medical treatment Z91.19 [facility] [id number] [place] [address] 96930 -6901 14 Jul, 2017 Essential hypertension I10 ; Other viral agents as the cause of diseases classified elsewhere B97.89 ; Acute upper respiratory infection, unspecified J06.9 and BMI 40.0-44.9, adult Z68.41 [facility] [id number] [place] [address] 39790- 6984 13 Jul, 2017 [facility] [id number] [place] [address] 67122- 1548 Jul, [facility] [address] 49383- 5597 Jun, [facility] [id number] [place] [address] 63340- 8500 Jun, [facility] [id number] [place] [address] 30938- 0608 Jun, Dysuria R30.0 ; Urinary tract infection, site not specified N39.0 ; Hematuria, unspecified R31.9 ; Sciatica of right side M54.31 ; Migraine with aura and without status migrainosus, not intractable G43.109 ; Primary insomnia F51.01 ; Essential hypertension I10 and Acquired hypothyroidism E03.9 [facility] [id number] [place] [address] 49150- 7595 Jun, Bipolar 2 disorder F31.81 [facility] [id number] [place] [address] 67084- 8884 Jun, Bipolar 2 disorder F31.81 [facility] [id number] [place] [address] 57700- 7356 May, Sore throat J02.9 ; Acute serous otitis media of left ear, recurrence not specified H65.02 and Hypertension I10 [facility] [id number] [place] [address] 57171- 2957 May, Bipolar 2 disorder F31.81 [facility] [address] [address]- 8628 Apr, [facility] [id number] [place] [address] 184256- 7893 Apr, Bipolar 2 disorder F31.81 [facility] [id number] [place] [address] 78840- 4673 Mar, [facility] [id number] [place] [address] 01095- 6387 Feb, Bipolar 2 disorder F31.81 ; Attention deficit disorder F90.0 ; COLLEEN (generalized anxiety disorder) F41.1 and Panic disorder [episodic paroxysmal anxiety] without agoraphobia F41.0 [facility] [id number] [place] [address] 58569- 4855 January, Bipolar 2 disorder F31.81 [facility] [id number] [place] [address] 39631- 4348 Dec, [facility] [id number] [place] [address] 74197- 9184 Dec, [facility] [id number] [place] [address] 48029- 8042 Dec, [facility] [address] [address]- 6755 Dec, Generalized anxiety disorder F41.1 ; Bipolar 2 disorder F31.81 and Panic disorder [episodic paroxysmal anxiety] without agoraphobia F41.0 [facility] [address] [address]- 1905 Dec, [facility] [id number] [place] [address] 06859- 3671 Dec, [facility] [address] [address]- 8687 Nov, [facility] [address] [address]- 3538 Nov, [facility] [id number] [place] [address] 64832- 2330 Nov, [facility] [id number] [place] [address] 20007- 4981 Oct, [facility] [id number] [place] [address] 778066- 5177 Oct, [facility] [id number] [place] [address] 21858- 1918 Oct, [facility] [id number] [place] [address] 54231- 2575 Oct, [facility] [id number] [place] [address] 32421- 1030 Oct, [facility] [id number] [place] [address] 25858- 1925 Sep, Bipolar 2 disorder F31.81 ; COLLEEN (generalized anxiety disorder) F41.1 ; Attention deficit disorder F90.0 and Panic disorder [episodic paroxysmal anxiety] without agoraphobia F41.0 [facility] [address] [address]- 3391 Sep, [facility] [address], [place] [address]- 2922 Sep, [facility] [address], [place] [address]- 6285 Sep, [facility] [address], [place] [address]- 2679 Aug, [facility] [address] [place] [address] 485491- 2378 Aug, [facility] [address] 3120 Aug, [facility] [address] [address]- 5523 Aug, [facility] [id number] [place] [address] 45716- 7356 Jul, [facility] [id number] [place] [address] 00420- 4539 Jul, [facility] [id number] [place] [address] 71343- 9217 Jul, [facility] [id number] [place] [address] 38672- 7208 Jun, [facility] [id number] [place] [address] 96301- 2510 Jun, Bipolar 2 disorder F31.81 ; Attention deficit disorder F90.0 ; COLLEEN (generalized anxiety disorder) F41.1 and Panic disorder [episodic paroxysmal anxiety] without agoraphobia F41.0 [facility] [id number] [place] [address] 18185- 9824 11 Jun, 2016 [facility] [id number] [place] [address] 48928- 0825 Jun, [facility] [id number] [place] [address] 06589- 3966 06 Jun, 2016 Right foot pain M79.671 and Nausea and vomiting in adult R11.2 [facility] [id number] [place] [address] 45995- 9051 29 May, 2016 [facility] [id number] [place] [address] 55247- 8839 29 May, 2016 Other sinusitis, unspecified chronicity J32.9 ; Environmental allergies Z91.09 ; Other chronic pain G89.29 and Sacrococcygeal disorders, not elsewhere classified M53.3 [facility] [address], [place] [address] -1208 16 May, 2016 Acute non-recurrent pansinusitis J01.40 and Gastroenteritis K52.9 [facility] [address], [place] [address]- 5731 May, [facility] [address] [place] [address] 89724- 7443 May, [facility] [address] [place] [address] 66322- 1823 Apr, Bronchitis J40 [facility] [id number] [place] [address] 73732- 1851 Apr, [facility] [id number] [place] [address] 52495- 0107 Apr, [facility] [id number] [place] [address] 42736- 9325 Apr, [facility] [id number] [place] [address] 63096 -3611 Apr, Nausea and vomiting in adult R11.2 [facility] [id number] [place] [address] 67271- 0220 Apr, Nausea and vomiting in adult R11.2 [facility] [id number] [place] [address] 99794- 8957 Apr, Bipolar 2 disorder F31.81 ; Generalized anxiety disorder F41.1 ; Panic disorder [episodic paroxysmal anxiety] without agoraphobia F41.0 ; Attention deficit disorder F90.0 and COLLEEN (generalized anxiety disorder) F41.1 [facility] [address], [place] [address]- 8689 Apr, [facility] [address], [place] [address]- 8323 Mar, [facility] [id number] [place] [address] 75371- 2167 Mar, [facility] [address], [place] [address]- 4772 Mar, [facility] [id number] [place] [address] 35383- 3555 Mar, Bipolar 2 disorder F31.81 ; Attention deficit disorder F90.0 ; COLLEEN (generalized anxiety disorder) F41.1 and Panic disorder [episodic paroxysmal anxiety] without agoraphobia F41.0 [facility] [address] [place] [address] 94550- 9884 Mar, [facility] [id number] [place] [address] 60192- 0133 Feb, Bipolar 2 disorder F31.81 ; Generalized anxiety disorder F41.1 and Attention deficit disorder F90.0 [facility] [id number] [place] [address] 89653- 4721 Feb, Generalized anxiety disorder F41.1 [facility] [id number] [place] [address] 34396- 1227 Feb, Generalized anxiety disorder F41.1 ; Attention deficit disorder F90.0 and Bipolar 2 disorder F31.81 [facility] [id number] [place] [address] 67321- 4470 Feb, Bipolar 2 disorder F31.81 ; Generalized anxiety disorder F41.1 ; Attention deficit disorder F90.0 and Insomnia, unspecified type G47.00 [facility] [id number] [place] [address] 08679- 7072 Feb, Excessive sweating R61 and Breast lump in upper outer quadrant N63 [facility] [address] [place] [address] 98429 -7699 January, Low back pain M54.5 ; Other chronic pain G89.29 and Urinary tract infection, site unspecified N39.0 [facility] [id number] [place] [address] 61832- 2635 January, Bipolar II disorder F31.81 [facility] [id number] [place] [address] 64484- 2470 January, [facility] [id number] [place] [address] 55813- 8391 January, Insomnia, unspecified type G47.00 and Grief F43.20 [facility] [address] 78124- 0293 January, [facility] [address] 03130- 7049 Dec, [facility] [address] 96957- 4209 Dec, [facility] [address] 27855- 2117 Dec, Bipolar 2 disorder F31.81 ; Generalized anxiety disorder F41.1 and Attention deficit disorder F90.0 [facility] [address] 63073- 3856 Dec, Sinusitis J32.9 [facility] [address] 43754- 0199 Dec, Sinusitis J32.9 and Hypothyroid E03.9 [facility] [address] 02930- 4232 Dec, [facility] [address] 99090 -3070 Dec, Cough R05 and Allergic rhinitis J30.9 [facility] [id number] [place] [address] 28874- 3580 Nov, Hypertension I10 ; Obesity E66.9 and Acne L70.9 [facility] [id number] [place] [address] 98970- 4385 Nov, [facility] [address] 21548- 8359 Oct, [facility] [address] 38159- 3666 Oct, [facility] [address] 41482- 3823 Oct, [facility] [id number] [place] [address] 26958- 2006 Oct, [facility] [address] 14957- 3638 Sep, Lymphadenitis I88.9 ; Essential hypertension I10 and Acne, unspecified acne type L70.9 [facility] [address] 23915- 2465 Sep, [facility] [address] 62277- 7286 Sep, [facility] [address] 90492- 3940 Sep, [facility] [address] 11575- 3429 Sep, Acquired hypothyroidism E03.9 [facility] [address] 14032- 8679 Aug, Acquired hypothyroidism E03.9 [facility] [address] 20124- 5308 Aug, Furuncle L02.92 [facility] [address] 04821- 0218 Aug, [facility] [address] 14861- 8859 Aug, Bipolar 2 disorder F31.81 ; Generalized anxiety disorder F41.1 ; Attention deficit disorder F90.0 and Obesity E66.9 [facility] [address] 49323- 8704 Aug, [facility] [id number] [place] [address] 17270- 8463 Aug, [facility] [address] 33912- 6706 Aug, Acquired hypothyroidism E03.9 [facility] [address] [address]- 9095 Jul, Acquired hypothyroidism E03.9 ; Upper respiratory tract infection, unspecified type J06.9 and Nonintractable migraine, unspecified migraine type G43.009 [facility] [address], [place] [address]- 9080 Jun, Acute pharyngitis, unspecified J02.9 [facility] [id number] [place] [address] 78387- 7936 May, Bipolar II disorder 296.89 ; Attention deficit disorder of childhood without mention of hyperactivity 314.00 ; Generalized anxiety disorder 300.02 and Morbid obesity with BMI of 45.0-49.9, adult 278.01 [facility] [id number] [place] [address] 17920- 7299 May, Sinusitis 473.9 [facility] [id number] [place] [address] 04069- 7029 Apr, [facility] [id number] [place] [address] 80503- 2383 Mar, [facility] [id number] [place] [address] 11953- 8367 Mar, Bipolar II disorder 296.89 ; Generalized anxiety disorder 300.02 ; Obesity, unspecified 278.00 and Attention deficit disorder 314.00 [facility] [id number] [place] [address] 47992- 3176 Feb, [facility] [id number] [place] [address] 93714- 4371 January, [facility] [id number] [place] [address] 47731- 3210 January, [facility] [address] [place] [address] 73424- 6842 January, [facility] [id number] [place] [address] 76405- 3138 06 Jan, 2015 [facility] [place] [facility] [address] [id number] [place] [address]- 1799 14 Dec, 2014 [facility] [place] [facility] [address] [id number] [place] [address]- 4169 13 Dec, 2014 [facility] [place] [facility] [address] [id number] [place] [address]- 1374 30 Nov, 2014 [facility] [place] [facility] [address] [id number] [place] [address]- 1825 18 Nov, 2014 [facility] [place] [facility] [address] [id number] [place] [address]- 7785 18 Nov, 2014 [facility] [place] [facility] [address] [id number] [place] [address]- 7247 11 Nov, 2014 [facility] [place] [facility] [address] [id number] [place] [address]- 7845 Nov, [facility] [place] [facility] [address] [id number] [place] [address]- 9140 Nov, [facility] [place] [facility] [address] [id number] [place] [address]- 0460 Nov, [facility] [place] [facility] [address] [facility] [id number] [place] [address]- 8846 Nov, [facility] [place] [facility] [address] [id number] [place] [address]- 9959 Nov, [facility] [place] [facility] [address] [id number] [place] [address]- 2068 10 Nov, 2014 [facility] [place] [facility] [address] [id number] [place] [address]- 6479 10 Nov, 2014 [facility] [place] [facility] [address] [id number] [place] [address]- 5317 09 Nov, 2014 [facility] [place] [facility] [address] [facility] [id number] [place] [address]- 6341 03 Nov, 2014 [facility] [place] [facility] [address] [id number] [place] [address]- 6284 Nov, [facility] [place] [facility] [address] [id number] [place] [address]- 6851 Oct, 2014 [facility] [place] [facility] [address] [id number] [place] [address]- 2545 Oct, 2014 [facility] [place] [facility] [address] [id number] [place] [address]- 1370 Oct, 2014 [facility] [place] [facility] [address] [id number] [place] [address]- 8595 Oct, 2014 [facility] [place] [facility] [address] [id number] [place] [address]- 0513 Oct, 2014 [facility] [place] [facility] [address] [facility] [id number] [place] [address]- 3270 Oct, 2014 [facility] [place] [facility] [address] [id number] [place] [address]- 2280 Oct, 2014 [facility] [place] [facility] [address] [id number] [place] [address]- 5447 Oct, 2014 [facility] [place] [facility] [address] [facility] [id number] [place] [address]- 8355 Oct, [facility] [place] [facility] [address] [id number] [place] [address]- 2691 Oct, [facility] [place] [facility] [address] [id number] [address]- 2565 Oct, [facility] [place] [facility] [address] [id number] [place] [address]- 4030 Oct, [facility] [place] [facility] [address] [id number] [place] [address]- 0192 Sep, [facility] [place] [facility] [address] [id number] [place] [address] Sep, [facility] [place] [facility] [address] [id number] [place] [address] 08 Sep, 2014 [facility] [place] [facility] [address] [id number] [place] [address] Sep, [facility] [place] [facility] [address] [id number] [place] [address] Sep, [facility] [place] [facility] [address] [id number] [place] [address] Sep, [facility] [place] [facility] [address] [id number] [place] [address] Sep, [facility] [place] [facility] [address] [id number] [place] [address] Sep, [facility] [place] [facility] [address] [id number] [place] [address] Aug, [facility] [place] [facility] [address] [id number] [place] [address] Aug, [facility] [place] [facility] [address] [id number] [place] [address] Aug, [facility] [place] [facility] [address] [id number] [place] [address] Aug, [facility] [place] [facility] [address] [id number] [place] [address] Aug, [facility] [place] [facility] [address] [id number] [place] [address] Aug, [facility] [place] [facility] [address] [id number] [place] [address] Aug, [facility] [place] [facility] [address] [id number] [place] [address] Aug, [facility] [place] [facility] [address] [id number] [place] [address] Aug, [facility] [place] [facility] [address] [id number] [place] [address] Aug, [facility] [place] [facility] [address] [id number] [place] [address] Aug, [facility] [place] [facility] [address] [id number] [place] [address] Aug, [facility] [place] [facility] [address] [id number] [place] [address] Aug, [facility] [place] [facility] [address] [id number] [place] [address] Aug, [facility] [place] [facility] [address] [id number] [place] [address] Jul, [facility] [place] [facility] [address] [id number] [place] [address] Jul, [facility] [place] [facility] [address] [id number] [place] [address] Jul, [facility] [place] [facility] [address] [id number] [place] [address] Jul, [facility] [place] [facility] [address] [id number] [place] [address] Jul, [facility] [place] [facility] [address] [id number] [place] [address] Jul, [facility] [place] [facility] [address] [id number] [place] [address] Jul, [facility] [place] [facility] [address] [id number] [place] [address] Jul, [facility] [place] [facility] [address] [id number] [place] [address] Jul, [facility] [place] [address] [id number] [place] [address] Jul, [facility] [place] [address] [id number] [place] [address] Jul, [facility] [address] [id number], [place] [address] Jul, [facility] [address] [id number] [place] [address]- 3495 16 Jun, 2014 [facility] [place] [facility] [address] [id number] [place] [address] 16 Jun, 2014 [facility] [place] [facility] [address] [id number] [place] [address] 7342 15 Jun, 2014 [facility] [place] [facility] [address] [id number] [place] [address] 7547 14 Jun, 2014 [facility] [place] [facility] [address] [id number] [place] [address] 7407 14 Jun, 2014 [facility] [place] [facility] [address] [id number] [place] [address] 3681 14 Jun, 2014 [facility] [place] [facility] [address] [id number] [place] [address] 6389 14 Jun, 2014 [facility] [place] [facility] [address] [id number] [address] 1732 13 Jun, 2014 [facility] [place] [facility] [address] [id number] [address] 2831 10 Jun, 2014 [facility] [place] [facility] [address] [id number] [place] [address]- 9462 10 Jun, 2014 [facility] [place] [facility] [address] [id number], [place] [address] 7866 09 Jun, 2014 [facility] [place] [facility] [address] [id number][place] [address] 4630 09 Jun, 2014 [facility] [place] [facility] [address] [id number][place] [address] 12[address] Jun, [facility] [place] [facility] [address] [id number][place] [address] 7035 06 Jun, 2014 [facility] [place] [facility] [address] [id number][place] [address] 5[address] 16 May, 2014 [facility] [place] [facility] [address] [id number] [place] [address] 2546 15 May, 2013 [facility] [place] [facility] [address] [id number] [place] [address] 2546 15 May, 2013 [facility] [place] [facility] [address] [id number] [place] [address] 2546 15 May, 2013 [facility] [place] [facility] [address] [id number] [place] [address] 2546 15 May, 2013 [facility] [place] [facility] [address] [id number] [place] [address] 2546 15 May, 2013 [facility] [place] [facility] [address] [id number] [place] [address]- 3494 15 May, 2013 [facility] [place] [facility] [address] [id number] [place] [address]- 9289 12 May, 2013 [facility] [place] [facility] [address] [id number] [place] [address]- 2540 12 May, 2013 [facility] [place] [facility] [address] [id number] [place] [address]- 2549 10 May, 2013 [facility] [place] [facility] [address] [id number] [place] [address] 2548 10 May, 2013 [facility] [place] [facility] [address] [id number] [place] [address] 2541 02 May, 2013 [facility] [place] [facility] [address] [id number] [place] [address] 2542 02 May, 2013 [facility] [place] [facility] [address] [id number] [place] [address] 2548 02 May, 2013 [facility] [place] [facility] [address] [id number] [place] [address] 2540 02 May, 2013 [facility] [place] [facility] [address] [id number] [place] [address]- 2548 Apr, [facility] [place] [facility] [address] [id number] [place] [address] 3165 Apr, [facility] [place] [facility] [address] [id number] [place] [address]- 3606 Apr, [facility] [place] [facility] [address] [id number] [place] [address]- 7323 Apr, [facility] [place] [facility] [address] [id number] [place] [address]- 2972 Apr, [facility] [place] [facility] [address] [id number] [place] [address]- 6565 Apr, [facility] [place] [facility] [address] [id number] [place] [address]- 0484 Apr, [facility] [place] [facility] [address] [id number] [place] [address]- 9047 Apr, [facility] [place] [facility] [address] [id number] [place] [address]- 5291 Apr, [facility] [place] [facility] [address] [id number] [place] [address]- 9654 Mar, [facility] [place] [facility] [address] [id number] [place] [address]- 7579 Mar, [facility] [place] [facility] [address] [id number] [place] [address] 6384 Mar, [facility] [place] [facility] [address] [id number] [place] [address]- 4842 Mar, [facility] [place] [facility] [address] [id number] [place] [address]- 9605 Mar, [facility] [place] [facility] [address] [id number] [place] [address]- 6956 Mar, [facility] [place] [facility] [address] [id number] [place] [address]- 2013 Mar, [facility] [place] [facility] [address] [id number] [place] [address]- 4529 Mar, [facility] [place] [facility] [address] [id number] [place] [address]- 0796 Mar, 2013 [facility] [place] [facility] [address] [id number] [place] [address]- 5272 Mar, 2013 [facility] [place] [facility] [address] [id number] [place] [address]- 5619 Mar, 2013 [facility] [place] [facility] [address] [id number] [place] [address]- 1390 Mar, 2013 [facility] [place] [facility] [address] [id number] [place] [address]- 8950 Mar, 2013 [facility] [place] [facility] [address] [id number] [place] [address]- 5150 Mar, 2013 [facility] [place] [facility] [address] [id number] [place] [address] 1926 Mar, 2013 [facility] [place] [facility] [address] [id number] [place] [address]- 4729 Mar, 2013 [facility] [place] [facility] [address] [id number] [place] [address]- 4417 Mar, [facility] [place] [facility] [address] [id number] [place] [address]- 0160 Mar, [facility] [place] [facility] [address] [id number] [place] [address]- 9051 Feb, [facility] [place] [facility] [address] [id number] [place] [address]- 9574 Feb, [facility] [place] [facility] [address] [id number] [place] [address]- 4094 Feb, [facility] [place] [facility] [address] [id number] [place] [address]- 3423 Feb, [facility] [place] [facility] [address] [id number] [place] [address]- 9440 Feb, [facility] [place] [facility] [address] [id number] [place] [address]- 5165 Feb, [facility] [place] [facility] [address] [id number] [place] [address]- 5074 Feb, [facility] [place] [facility] [address] [id number] [place] [address]- 5250 Feb, [facility] [place] [facility] [address] [id number] [place] [address]- 9714 Feb, [facility] [place] [facility] [address] [id number] [place] [address]- 6837 Feb, [facility] [place] [facility] [address] [id number] [place] [address] 3053 January, [facility] [place] [facility] [address] [id number] [place] [address]- 5288 January, [facility] [place] [facility] [address] [id number] [place] [address] 8145 January, [facility] [place] [facility] [address] [id number] [place] [address]- 8199 January, [facility] [place] [facility] [address] [id number] [place] [address]- 5953 January, [facility] [place] [facility] [address] [id number] [place] [address]- 4815 January, [facility] [place] [facility] [address] [id number] [place] [address]- 7226 January, [facility] [place] [facility] [address] [id number] [place] [address]- 3307 January, [facility] [place] [facility] [address] [id number] [place] [address]- 7482 January, [facility] [place] [facility] [address] [id number] [place] [address]- 3922 January, [facility] [place] [facility] [address] [id number] [place] [address]- 1659 January, [facility] [place] [facility] [address] [id number] [place] [address]- 9908 January, [facility] [place] [facility] [address] [id number] [place] [address]- 1502 January, [facility] [place] [facility] [address] [id number] [place] [address]- 8775 January, [facility] [place] [facility] [address] [id number] [place] [address]- 4689 January, [facility] [place] [facility] [address] [id number] [place] [address]- 3388 Dec, [facility] [place] [facility] [address] [id number] [place] [address]- 5293 Dec, [facility] [place] [facility] [address] [id number] [place] [address]- 0830 Dec, [facility] [place] [facility] [address] [id number] [place] [address]- 4444 Dec, [facility] [place] [facility] [address] [id number] [place] [address]- 7329 Dec, [facility] [place] [facility] [address] [id number] [place] [address]- 2923 Dec, [facility] [place] [facility] [address] [id number] [place] [address]- 4247 Nov, [facility] [place] [facility] [address] [id number] [place] [address]- 4735 Nov, [facility] [place] [facility] [address] [id number] [place] [address]- 3442 Nov, [facility] [place] [facility] [address] [id number] [place] [address]- 2734 Nov, [facility] [place] [facility] [address] [id number] [place] [address]- 2971 Nov, [facility] [place] [facility] [address] [id number] [place] [address]- 8778 Oct, [facility] [place] [facility] [address] [id number] [place] [address]- 8438 20 Oct, 2013 [facility] [place] [facility] [address] [id number] [place] [address]- 5456 Oct, [facility] [place] [facility] [address] [id number] [place] [address]- 7066 13 Oct, 2013 [facility] [place] [facility] [address] [id number] [place] [address]- 5710 10 Oct, 2013 [facility] [place] [facility] [address] [id number] [place] [address]- 1282 06 Oct, 2013 [facility] [place] [facility] [address] [id number] [place] [address]- 6304 Oct, [facility] [place] [facility] [address] [id number] [place] [address]- 2872 04 Oct, 2013 [facility] [place] [facility] [address] [id number] [place] [address]- 5972 04 Oct, 2013 [facility] [place] [facility] [address] [id number] [place] [address]- 2284 03 Oct, 2013 [facility] [place] [facility] [address] [id number] [place] [address]- 3883 03 Oct, 2013 [facility] [place] [facility] [address] [id number] [place] [address]- 7301 14 Sep, 2013 [facility] [place] [facility] [address] [id number] [place] [address]- 3927 Sep, [facility] [place] [facility] [address] [id number] [place] [address]- 9427 Sep, [facility] [place] [facility] [address] [id number] [place] [address]- 7849 Sep, [facility] [place] [facility] [address] [id number] [place] [address]- 7946 Aug, [facility] [place] [facility] [address] [id number] [place] [address]- 2690 Aug, [facility] [place] [facility] [address] [id number] [place] [address]- 9573 Jul, [facility] [place] [facility] [address] [id number] [place] [address]- 8326 Jul, [facility] [place] [facility] [address] [id number] [place] [address]- 2546 Jul, [facility] [place] [facility] [address] [id number] [place] [address]- 2542 Jul, [facility] [place] [facility] [address] [id number] [place] [address]- 254 Jul, [facility] [place] [facility] [address] [id number] [place] [address]- 7406 Jun, [facility] [place] [facility] [address] [id number] [place] [address]- 6556 Jun, [facility] [place] [facility] [address] [id number] [place] [address]- 4782 May, [facility] [place] [facility] [address] [id number] [place] [address]- 3084 Mar, [facility] [place] [facility] [address] [id number] [place] [address]- 8074 Mar, [facility] [place] [facility] [address] [id number], [place] [address]- 2546 Mar, [facility] [place] [facility] [address] [id number], [place] [address]- 254 Feb, [facility] [place] [facility] [address] [id number] [place] [address]- 2546 January, [facility] [place] [facility] [address] [id number] [place] [address]- 2546 Dec, [facility] [place] [facility] [address] [id number] [place] [address]- 2546 Nov, [facility] [place] [facility] [address] [facility] [id number], [place] [address]- 6701 Nov, [facility] [address] [id number] [address] Nov, [facility] [address] [id number], [place] [address]- 8216 Oct, [facility] [address] [id number] [address]- 0070 Oct, [facility] [id number], [place] [address]- 7528 Oct, [facility] [id number] [address]44 Oct, [facility] [address] [id number], [place] [address]- 0014 Sep, IMMUNIZATIONS No Known Immunizations SOCIAL HISTORY [...]
--- OUTSIDE RECORDS SUMMARY | 2018-09-23 22:21 | XMS REPORT ---
Author Author BALJIT OSEI Organization [facility] Address [address] [place] [address] Care Team Providers Care Seismic Plotter Name Role Phone BALJIT OSEI Unavailable PROBLEMS Type Condition ICD9-CM Code HAY03-EW Code Onset Dates Condition Status SNOMED Code Problem Acne L70.9 Active 99371569 Problem Sciatica of right side M54.31 Active 79238260 Problem Panic disorder [episodic paroxysmal anxiety] without agoraphobia F41.0 Active 91847329 Problem Attention-deficit hyperactivity disorder, predominantly inattentive type F90.0 Active 74221521 Problem Current nonadherence to medical treatment Z91.19 Active 2922732 Problem Acquired hypothyroidism E03.9 Active 337355953 Problem Essential hypertension I10 Active 78689452 Problem Primary insomnia F51.01 Active 6579744 Problem Migraine with aura and without status migrainosus, not intractable G43.109 Active 1176074 Problem Abnormal liver function K76.89 Active 43829969 Problem Obesity E66.9 Active 833413047 Problem Bipolar 2 disorder F31.81 Active 47286206 Problem Postoperative hypothyroidism E89.0 Active 93603580 Problem Generalized anxiety disorder F41.1 Active 68352029 ALLERGIES No Information ENCOUNTERS Encounter Location Date Diagnosis [place] [id number], [place] [address] Feb, [place] [id number] [place] [address] 37880- 2251 Nov, Normal physical exam Z00.00 and Enlarged lymph node R59.9 [place] [id number] [place] [address] 60891- 6215 Nov, Enlarged lymph node R59.9 ; Abnormal liver function K76.89 and Hypothyroid E03.9 [place] [id number] [place] [address] 84363- 4790 Oct, Bipolar 2 disorder F31.81 [facility] [place] [id number] [place] [address] 47403- 1447 Oct, Sciatica of right side M54.31 and Essential hypertension I10 [facility] [address] [place] [id number] [place] [address] 59192- 5437 Oct, [facility] [address] [place] [id number] [place] [address] 95087- 0030 Aug, Hypothyroid E03.9 [place] [address] [place] [id number] [place] [address] 94042- 9865 Aug, [place] [address] [place] [id number] [place] [address] 07492- 9303 Aug, Bipolar 2 disorder F31.81 [place] [address] [place] [id number] [place] [address] 88403- 8852 05 Aug, 2017 Abnormal liver function K76.89 [place] [address] [place] [id number] [place] [address] 54868- 5796 Jul, Bipolar 2 disorder F31.81 [facility] [address] [place] [address] [id number] [place] [address] 05037 -7447 Jul, [place] [address] [place] [id number] [place] [address] 20064- 8598 Jul, Bipolar 2 disorder F31.81 ; Generalized anxiety disorder F41.1 ; Attention-deficit hyperactivity disorder, predominantly inattentive type F90.0 and Current nonadherence to medical treatment Z91.19 [facility] [id number] [place] [address] 39780 -3261 14 Jul, 2017 Essential hypertension I10 ; Other viral agents as the cause of diseases classified elsewhere B97.89 ; Acute upper respiratory infection, unspecified J06.9 and BMI 40.0-44.9, adult Z68.41 [facility] [address] [place] [id number] [place] [address] 76094- 2214 Jul, [facility] [address] [place] [id number] [place] [address] 43069- 4456 Jul, [facility] [address] [place] [id number] [place] [address] 41564- 9104 Jun, [facility] [place] [address] [place] [id number] [place] [address] 44750- 6114 Jun, [facility] [address] [place] [id number] [place] [address] 75769- 2965 Jun, Dysuria R30.0 ; Urinary tract infection, site not specified N39.0 ; Hematuria, unspecified R31.9 ; Sciatica of right side M54.31 ; Migraine with aura and without status migrainosus, not intractable G43.109 ; Primary insomnia F51.01 ; Essential hypertension I10 and Acquired hypothyroidism E03.9 [place] [address] [place] [id number] [place] [address] 59180- 2857 Jun, Bipolar 2 disorder F31.81 [place] [address] [place] [id number] [place] [address] 13066- 4749 Jun, Bipolar 2 disorder F31.81 [place] [address] [place] [id number] [place] [address] 83372- 5813 May, Sore throat J02.9 ; Acute serous otitis media of left ear, recurrence not specified H65.02 and Hypertension I10 [facility] [place] [address] [place] [id number] [place] [address] 20227- 4626 May, Bipolar 2 disorder F31.81 [facility] [address] [place] [id number] [place] [address] 08452- 5870 Apr, [facility] [address] [place] [id number] [place] [address] 03474- 9167 Apr, Bipolar 2 disorder F31.81 [facility] [address] [place] [id number] [place] [address] 65321- 9250 Mar, [facility] [address] [place] [id number] [place] [address] [place] [address] Feb, Bipolar 2 disorder F31.81 ; Attention deficit disorder F90.0 ; COLLEEN (generalized anxiety disorder) F41.1 and Panic disorder [episodic paroxysmal anxiety] without agoraphobia F41.0 [facility] [address], [place] [address] 3879 January, Bipolar 2 disorder F31.81 [facility] [address] [place] [id number] [place] [address] 45204- 9871 Dec, [facility] [address], [place] [address] 6472 Dec, [facility] [address] [place] [id number] [place] [address] 80903- 0266 Dec, [facility] [address] [place] [id number] [place] [address] 84372- 2866 Dec, Generalized anxiety disorder F41.1 ; Bipolar 2 disorder F31.81 and Panic disorder [episodic paroxysmal anxiety] without agoraphobia F41.0 [facility] [address], [place] [address]- 2799 Dec, [facility] [id number] [place] [address] 39547- 9235 Dec, [facility] [address], [place] [address]- 5899 Nov, [facility] [address], [place] [address]- 8073 Nov, [facility] [address], [place] [address]- 3936 Nov, [facility] [address] [place] [id number] [address]- 3299 Oct, [facility] [address], [place] [address]- 2873 Oct, [facility] [address] [place] [id number] [place] [address] 25687- 3969 Oct, [facility] [address] [place] [id number] [place] [address] 130008- 6645 Oct, [facility] [address] [place] [id number] [place] [address] 20294- 0729 Oct, [facility] [address] [place] [id number] [place] [address] 020215- 8560 Sep, Bipolar 2 disorder F31.81 ; COLLEEN (generalized anxiety disorder) F41.1 ; Attention deficit disorder F90.0 and Panic disorder [episodic paroxysmal anxiety] without agoraphobia F41.0 [facility] [address] [place] [id number] [place] [address] 468571- 0841 Sep, [facility] [address] [place] [id number] [place] [address] 65246- 8447 Sep, [facility] [address] [place] [id number] [place] [address] 98918- 2326 Sep, [facility] [address] [place] [id number] [place] [address] 88401- 8429 Aug, [facility] [address] [place] [id number] [place] [address] 71545- 9355 Aug, [facility] [address] [place] [id number] [place] [address] 21059- 7703 Aug, [facility] [id number] [place] [address] 14743- 1237 Aug, [facility] [id number] [place] [address] 152001- 5131 Jul, [facility] [address] [place] [id number] [place] [address] 852726- 9432 Jul, [facility] [id number] [place] [address] 560500- 6021 Jul, [facility] [address] [place] [id number] [place] [address] 39698- 5327 Jun, [facility] [place] [address] [place] [id number] [place] [address] 98642- 7509 Jun, Bipolar 2 disorder F31.81 ; Attention deficit disorder F90.0 ; COLLEEN (generalized anxiety disorder) F41.1 and Panic disorder [episodic paroxysmal anxiety] without agoraphobia F41.0 [facility] [address] 73657- 9793 Jun, [facility] [address] 50786- 7866 Jun, [facility] [address] 66894- 7634 Jun, Right foot pain M79.671 and Nausea and vomiting in adult R11.2 [facility] [address] 48657- 9306 May, [facility] [address] 32028- 6189 May, Other sinusitis, unspecified chronicity J32.9 ; Environmental allergies Z91.09 ; Other chronic pain G89.29 and Sacrococcygeal disorders, not elsewhere classified M53.3 [facility] [address] [place] [id number] [place] [address] 70737 -4630 May, Acute non-recurrent pansinusitis J01.40 and Gastroenteritis K52.9 [facility] [place] [address] [place] [id number] [place] [address] 33327- 7519 May, [facility] [address] [place] [id number] [place] [address] 47474- 4303 May, [facility] [address] 52572- 1661 Apr, Bronchitis J40 [facility] [place] [address] 23748- 7810 Apr, [facility] [place] [address] [place] [address]- 9349 Apr, [facility] [place] [address], [place] [address]- 8194 Apr, [facility] [address], [place] [address]50 Apr, Nausea and vomiting in adult R11.2 [facility] [place] [address] [place] [id number] [place] [address] 92855- 5928 Apr, Nausea and vomiting in adult R11.2 [facility] [place] [id number] [place] [address] 35770- 1819 Apr, Bipolar 2 disorder F31.81 ; Generalized anxiety disorder F41.1 ; Panic disorder [episodic paroxysmal anxiety] without agoraphobia F41.0 ; Attention deficit disorder F90.0 and COLLEEN (generalized anxiety disorder) F41.1 [facility] [place] [address] [place] [id number] [place] [address] 11826- 3301 Apr, [facility] [place] [id number] [place] [address] 84711- 6676 Mar, [facility] [place] [address] [place] [id number] [place] [address] 58996- 6391 Mar, [facility] [place] [address], [place] [address]- 2661 Mar, [facility] [place] [id number] [place] [address] 79029- 9353 Mar, Bipolar 2 disorder F31.81 ; Attention deficit disorder F90.0 ; COLLEEN (generalized anxiety disorder) F41.1 and Panic disorder [episodic paroxysmal anxiety] without agoraphobia F41.0 [facility] [place] [address], [place] [address]- 4289 Mar, [facility] [address], [place] [address]- 7164 Feb, Bipolar 2 disorder F31.81 ; Generalized anxiety disorder F41.1 and Attention deficit disorder F90.0 [facility] [place] [address] [id number] [place] [address] 43172- 6731 Feb, Generalized anxiety disorder F41.1 [facility] [place] [address] [place] [id number] [place] [address] 96364- 9301 Feb, Generalized anxiety disorder F41.1 ; Attention deficit disorder F90.0 and Bipolar 2 disorder F31.81 [facility] [place] [address] [place] [id number] [place] [address] 32612- 2338 Feb, Bipolar 2 disorder F31.81 ; Generalized anxiety disorder F41.1 ; Attention deficit disorder F90.0 and Insomnia, unspecified type G47.00 [facility] [place] [address] [id number] [place] [address] 99141- 6044 Feb, Excessive sweating R61 and Breast lump in upper outer quadrant N63 [facility] [address] [id number] [place] [address] 32624 -2830 January, Low back pain M54.5 ; Other chronic pain G89.29 and Urinary tract infection, site unspecified N39.0 [facility] [place] [address] [id number] [place] [address] 80287- 5740 January, Bipolar II disorder F31.81 [facility] [place] [address] [id number] [place] [address] 57294- 5894 January, [facility] [place] [address] [id number] [place] [address] 31057- 4727 January, Insomnia, unspecified type G47.00 and Grief F43.20 [facility] [place] [id number] [place] [address] 35011- 6711 January, [facility] [place] [address] [id number] [place] [address] 77689- 2643 Dec, [facility] [place] [address] [id number] [place] [address] 40005- 7996 Dec, [facility] [place] [address] 54079- 8438 Dec, Bipolar 2 disorder F31.81 ; Generalized anxiety disorder F41.1 and Attention deficit disorder F90.0 [place] [address] 46494- 5029 Dec, Sinusitis J32.9 [facility] [place] [address] 45362- 2620 14 Dec, 2015 Sinusitis J32.9 and Hypothyroid E03.9 [place] [address] 71033- 0204 Dec, [facility] [address] 84235 -6188 Dec, Cough R05 and Allergic rhinitis J30.9 [place] [address] 23249- 2273 Nov, Hypertension I10 ; Obesity E66.9 and Acne L70.9 [place] [address] 33139- 5764 Nov, [place] [address] 63758- 5204 Oct, [place] [address] 84231- 5288 Oct, [place] [address] 90924- 0689 Oct, [facility] [place] [address] 29405- 4841 Oct, [place] [address] 89199- 0398 Sep, Lymphadenitis I88.9 ; Essential hypertension I10 and Acne, unspecified acne type L70.9 [place] [address] 97969- 0775 Sep, [place] [address], [place] [address]- 5387 Sep, [facility] [place] [id number] [place] [address] 33463- 2175 Sep, [facility] [place] [address], [place] [address]- 4149 Sep, Acquired hypothyroidism E03.9 [facility] [place] [address] [id number] [place] [address] 58836- 2671 Aug, Acquired hypothyroidism E03.9 [facility] [place] [id number] [place] [address] 98287- 9623 Aug, Furuncle L02.92 [facility] [place] [id number] [place] [address] 88420- 7288 Aug, [facility] [place] [id number] [place] [address] 37968- 4670 Aug, Bipolar 2 disorder F31.81 ; Generalized anxiety disorder F41.1 ; Attention deficit disorder F90.0 and Obesity E66.9 [facility] [place] [id number] [place] [address] 67172- 5569 Aug, [facility] [place] [id number] [place] [address] 43221- 2644 Aug, [facility] [place] [address] [place] [address] 00052- 2080 Aug, Acquired hypothyroidism E03.9 [facility] [place] [id number] [place] [address] 96513- 4722 Jul, Acquired hypothyroidism E03.9 ; Upper respiratory tract infection, unspecified type J06.9 and Nonintractable migraine, unspecified migraine type G43.009 [facility] [place] [address], [place] [address]- 8574 14 Jun, 2015 Acute pharyngitis, unspecified J02.9 [facility] [place] [id number] [place] [address] 87023 2546 May, Bipolar II disorder 296.89 ; Attention deficit disorder of childhood without mention of hyperactivity 314.00 ; Generalized anxiety disorder 300.02 and Morbid obesity with BMI of 45.0-49.9, adult 278.01 [facility] [place] [address], [place] [address]- 2546 May, Sinusitis 473.9 [facility] [id number] [place] [address] 07842- 5476 Apr, [facility] [id number] [place] [address] 75371- 8306 Mar, [facility] [id number] [place] [address] 76877- 3936 Mar, Bipolar II disorder 296.89 ; Generalized anxiety disorder 300.02 ; Obesity, unspecified 278.00 and Attention deficit disorder 314.00 [facility] [place] [id number] [place] [address] 00861- 5566 Feb, [facility] [place] [id number] [place] [address]64- 1396 January, [facility] [place] [id number] [place] [id number]- [id number] January, [facility] [place] [id number] [address] January, [facility] [place] [id number] [address] January, [facility] [place] [id number] [address] Dec, [facility] [place] [id number] [place] [address] [id number]- 2546 Dec, [facility] [place] [id number], [place] [address] Nov, [facility] [place] [id number] [place] [address] [id number]- 4181 Nov, [facility] [place] [facility] [address] [id number] [place] [address] 18 Nov, 2014 [facility] [place] [facility] [address] [id number] [place] [address]- [address]2 Nov, [facility] [place] [facility] [address] [id number] [place] [address] Nov, [facility] [place] [facility] [address] [id number] [place] [address]74 Nov, [facility] [place] [facility] [address] [id number] [place] [address]16 Nov, [facility] [place] [facility] [address] [id number] [place] [address] 1696 Nov, [facility] [place] [facility] [address] [id number] [place] [address]257 Nov, [facility] [place] [facility] [address] [id number] [place] [address]- 4795 Nov, [facility] [place] [facility] [address] [id number] [place] [address]- 0018 Nov, [facility] [place] [facility] [address] [id number] [place] [address]- 2802 Nov, [facility] [place] [facility] [address] [id number] [place] [address]- 4865 Nov, [facility] [place] [facility] [address] [id number] [place] [address]- [address]134 Nov, [facility] [place] [facility] [address] [id number] [place] [address]458 Oct, [facility] [place] [facility] [address] [id number] [place] [address]- 8621 Oct, [facility] [place] [facility] [address] [id number] [place] [address]- 6725 Oct, [facility] [place] [facility] [address] [id number] [place] [address]- 6314 Oct, 2014 [facility] [place] [facility] [address] [id number] [place] [address] 3210 Oct, 2014 [facility] [place] [facility] [address] [id number] [place] [address]- [address]386 Oct, 2014 [facility] [place] [facility] [address] [id number] [place] [address]- [address]396 Oct, 2014 [facility] [place] [facility] [address] [id number] [place] [address] Oct, 2014 [facility] [place] [facility] [address] [id number] [place] [address] 2922 Oct, 2014 [facility] [place] [facility] [address] [facility] [id number] [place] [address]274 Oct, [facility] [place] [facility] [address] [facility] [id number] [place] [address]29 Oct, [facility] [place] [facility] [address] [id number] [place] [address]- [address]33 Oct, [facility] [facility] [address] [facility] [id number] [place] [address] Sep, [facility] [place] [facility] [address] [facility] [id number] [place] [address] Sep, [facility] [place] [facility] [address] [facility] [id number], [place] [address] Sep, [facility] [place] [facility] [address] [id number] [place] [address] 7685 Sep, [facility] [place] [facility] [address] [id number] [place] [address] 30[address] Sep, [facility] [place] [facility] [address] [facility] [id number] [place] [address] 7617 Sep, [facility] [place] [facility] [address] [id number] [place] [address]- 290[address] Sep, [facility] [place] [facility] [address] [id number] [place] [address] Sep, [facility] [place] [facility] [address] [id number] [place] [address]- 6756 Aug, [facility] [place] [facility] [address] [id number] [id number] [address] Aug, [facility] [place] [facility] [address] [id number] [place] [address]- [address]254 Aug, [facility] [place] [facility] [address] [id number] [place] [address]- 7066 Aug, [facility] [place] [facility] [address] [id number] [place] [address]- 7422 Aug, [facility] [place] [facility] [address] [id number] [place] [address]- 8166 Aug, [facility] [place] [facility] [address] [id number] [place] [address]- 0962 Aug, [facility] [place] [facility] [address] [id number] [place] [address]- 0113 Aug, [facility] [place] [facility] [address] [id number] [place] [address]- 3853 Aug, [facility] [place] [facility] [address] [id number] [place] [address]- 1021 Aug, [facility] [place] [facility] [address] [id number] [place] [address]- 2391 Aug, [facility] [place] [facility] [address] [id number] [place] [address]- 8076 Aug, [facility] [place] [facility] [address] [id number] [place] [address]- 9335 Aug, [facility] [place] [facility] [address] [id number] [place] [address] Aug, [facility] [place] [facility] [address] [id number] [place] [address]- 8160 13 Jul, 2014 [facility] [facility] [address] [id number] [place] [address]- 6506 Jul, [facility] [place] [facility] [address] [id number] [place] [address]- 4077 Jul, [facility] [place] [facility] [address] [id number] [place] [address]- 8187 Jul, [facility] [place] [facility] [address] [id number] [place] [address]- 5638 Jul, [facility] [place] [facility] [address] [id number] [place] [address]- 4440 Jul, [facility] [place] [facility] [address] [id number] [place] [address]- 7062 Jul, [facility] [address] [id number] [place] [address]- 5604 Jul, [facility] [place] [facility] [address] [id number] [place] [address]- 5996 Jul, [facility] [place] [facility] [address] [id number] [place] [address]- 7332 Jul, [facility] [facility] [address] [id number] [place] [address]- 0940 Jul, [facility] [place] [facility] [address] [id number] [place] [address]- 0392 Jul, [facility] [place] [facility] [address] [id number] [place] [address]- 5034 16 Jun, 2014 [facility] [place] [facility] [address] [id number] [place] [address]- 3982 16 Jun, 2014 [facility] [place] [facility] [address] [id number] [place] [address]- 0893 15 Jun, 2014 [facility] [address] [id number] [place] [address]- 2227 14 Jun, 2014 [facility] [place] [facility] [address] [id number] [place] [address]- 8801 14 Jun, 2014 [facility] [address] [id number] [place] [address]- 6589 14 Jun, 2014 [facility] [address] [id number] [place] [address]- 1125 14 Jun, 2014 [facility] [address] [id number] [place] [address]- 6501 13 Jun, 2014 [facility] [address] [id number] [place] [address]- 3021 10 Jun, 2014 [facility] [address] [id number] [place] [address]- 5407 10 Jun, 2014 [facility] [address] [id number] [place] [address]- 3256 09 Jun, 2014 [facility] [address] [id number] [place] [address]- 9648 09 Jun, 2014 [facility] [address] [id number] [place] [address]- 5985 06 Jun, 2014 [facility] [address] [id number] [place] [address]- 0654 06 Jun, 2014 [facility] [address] [id number], [place] [address]- 3[address] 16 May, 2014 [facility] [address] [id number], [place] [address]- 0511 15 May, 2013 [facility] [address] [id number] [place] [address]- 7073 15 May, 2014 [facility] [address] [id number] [place] [address]- 3341 15 May, 2014 [facility] [address] [id number], [place] [address]- 4336 15 May, 2013 [facility] [address] [id number], [place] [address]- 2099 15 May, 2013 [facility] [address] [id number] [place] [address]- 8655 15 May, 2013 [facility] [address] [id number] [place] [address]- 3888 12 May, 2013 [facility] [address] [id number] [place] [address]- 5516 12 May, 2013 [facility] [address] [id number] [place] [address]- 4316 10 May, 2013 [facility] [address] [id number] [place] [address]- 0510 10 May, 2013 [facility] [address] [id number] [place] [address]- 6175 02 May, 2014 [facility] [address] [id number] [place] [address]- 1025 May, 2013 [facility] [address] [id number] [place] [address]- 0454 May, [facility] [address] [id number] [place] [address]- 7904 May, [facility] [address] [id number] [place] [address]- 0214 Apr, [facility] [address] [id number] [place] [address]- 8935 Apr, [facility] [address] [id number] [place] [address]- 4708 Apr, [facility] [address] [id number] [place] [address]- 3945 Apr, [facility] [address] [id number] [place] [address]- 3086 Apr, [facility] [address] [id number] [place] [address]- 7721 Apr, [facility] [address] [id number] [place] [address]- 5610 Apr, [facility] [address] [id number] [place] [address]- 9978 Apr, [facility] [address] [id number] [place] [address]- 3626 Apr, [facility] [address] [id number] [place] [address]- 5317 Mar, [facility] [address] [id number] [place] [address]- 8079 Mar, [facility] [address] [id number] [place] [address]- 3881 Mar, [facility] [address] [id number] [place] [address]- 9348 Mar, [facility] [address] [id number] [place] [address]- 5960 Mar, [facility] [address] [id number] [place] [address]- 2311 Mar, [facility] [address] [id number] [place] [address]- 8880 Mar, [facility] [address] [id number] [place] [address]- 9048 Mar, [facility] [address] [id number] [place] [address]- 2571 Mar, [facility] [address] [id number] [place] [address]- 5406 Mar, [facility] [address] [id number] [place] [address]- 3471 Mar, [facility] [address] [id number] [place] [address]- 0156 Mar, [facility] [address] [id number] [place] [address]- 9460 Mar, [facility] [address] [id number] [place] [address]- 3111 Mar, [facility] [address] [id number] [place] [address]- 2014 Mar, [facility] [address] [id number] [place] [address]- 6764 Mar, [facility] [address] [id number] [place] [address]- 1486 Mar, [facility] [address] [id number] [place] [address]- 2333 Mar, [facility] [address] [id number] [place] [address]- 0279 Feb, [facility] [address] [id number] [place] [address]- 2358 Feb, [facility] [address] [id number] [place] [address]- 7296 Feb, [facility] [address] [id number] [place] [address]- 5837 Feb, [facility] [address] [id number] [place] [address]- 1607 Feb, [facility] [address] [id number] [place] [address]- 7559 Feb, [facility] [address] [id number], [place] [address]- 3578 Feb, [facility] [address] [id number] [place] [address]- 6515 Feb, [facility] [address] [id number] [place] [address]- 9718 Feb, [facility] [address] [id number] [place] [address]- 8790 Feb, [facility] [address] [id number] [place] [address]- 2002 January, [facility] [address] [id number] [place] [address]- 9200 January, [facility] [address] [id number] [place] [address]- 5633 January, [facility] [address] [id number] [place] [address]- 2407 January, [facility] [address] [id number] [place] [address]- 6328 January, [facility] [address] [id number] [place] [address]- 2284 January, [facility] [address] [id number] [place] [address]- 6913 January, [facility] [address] [id number] [place] [address]- 5930 January, [facility] [address] [id number] [place] [address]- 7499 January, [facility] [address] [id number] [place] [address]- 1957 January, [facility] [address] [id number] [place] [address]- 5268 January, [facility] [address] [id number] [place] [address]- 1060 January, [facility] [address] [id number] [place] [address]- 8653 January, [facility] [address] [id number] [place] [address]- 4733 January, [facility] [address] [id number] [place] [address] January, [facility] [address] [id number] [place] [address]- 2792 Dec, [facility] [address] [id number] [place] [address]- 9168 Dec, [facility] [address] [id number] [place] [address]- 7034 Dec, [facility] [address] [id number] [place] [address]- 2630 Dec, [facility] [address] [id number] [place] [address]- 2493 Dec, [facility] [address] [id number] [place] [address]- 4507 Dec, [facility] [address] [id number] [place] [address]- 5169 Nov, [facility] [address] [id number] [place] [address]- 8759 Nov, [facility] [address] [id number] [place] [address]- 7922 Nov, [facility] [place] [facility] [address] [id number] [place] [address]- 3014 Nov, [facility] [facility] [address] [id number] [place] [address]- 2554 Nov, [facility] [place] [facility] [address] [id number] [place] [address]- 1368 Oct, [facility] [place] [facility] [address] [id number] [place] [address]- 5336 Oct, [facility] [place] [facility] [address] [id number] [place] [address]- 9724 Oct, [facility] [facility] [address] [id number] [place] [address]- 4478 Oct, [facility] [place] [facility] [address] [id number] [place] [address]- 5341 Oct, [facility] [place] [facility] [address] [id number] [place] [address]- 9750 06 Oct, 2013 [facility] [facility] [address] [id number] [place] [address]- 9816 06 Oct, 2013 [facility] [place] [facility] [address] [id number] [place] [address] Oct, [facility] [place] [facility] [address] [id number] [place] [address]- 0664 Oct, [facility] [place] [facility] [address] [id number] [place] [address]- 6965 Oct, [facility] [place] [facility] [address] [id number] [place] [address]- 1975 Oct, [facility] [place] [facility] [address] [id number] [place] [address]- 8772 Sep, [facility] [place] [facility] [address] [id number] [place] [address]- 4251 Sep, [facility] [place] [facility] [address] [id number] [place] [address]- 3739 Sep, [facility] [place] [facility] [address] [id number] [place] [address]- 3383 Sep, [facility] [place] [facility] [address] [id number] [place] [address]- 3587 Aug, [facility] [place] [facility] [address] [id number] [place] [address]- 8590 Aug, [facility] [place] [facility] [address] [id number] [place] [address]- 3220 Jul, [facility] [place] [facility] [address] [id number] [place] [address]- 4575 Jul, [facility] [place] [facility] [address] [id number] [place] [address]- 8572 Jul, [facility] [place] [facility] [address] [id number] [place] [address]- 4045 Jul, [facility] [place] [facility] [address] [id number] [place] [address]- 2542 Jul, [facility] [address] [id number] [place] [address]- 3964 Jun, [facility] [address] [id number] [place] [address]- 7050 Jun, [facility] [place] [facility] [address] [id number] [place] [address] 254 May, [facility] [address] [id number] [place] [address]- 9790 Mar, [facility] [place] [facility] [address] [id number] [place] [address]- 3160 Mar, [facility] [address] [id number] [place] [address]- 9545 Mar, [facility] [address] [id number] [place] [address]- 8052 Feb, [facility] [address] [id number] [place] [address]- 5963 January, [facility] [address] [id number] [place] [address]- 3939 Dec, [facility] [place] [facility] [address] [id number] [place] [address]- 1133 Nov, [facility] [place] [facility] [address] [id number], [place] [address] 2543 Nov, [facility] [place] [facility] [address] [id number] [place] [address] 2542 Nov, [facility] [place] [facility] [address] [id number] [place] [address]- 2546 Oct, [facility] [place] [facility] [address] [id number] [place] [address]- 2546 Oct, [facility] [place] [facility] [address] [id number], [place] [address]- 2546 Oct, [facility] [place] [address] [facility] [id number] [place] [address]- 2546 Oct, [facility] [place] [address] [facility] [id number] [place] [address]- 8086 Sep, IMMUNIZATIONS No Known Immunizations SOCIAL HISTORY Never Assessed REASON FOR VISIT PLAN OF CARE VITAL SIGNS MEDICATIONS Unknown [...]
--- OUTSIDE RECORDS SUMMARY | 2018-09-23 22:22 | XMS REPORT ---
Author Author BALJIT OSEI Organization [facility] Address [address] [place] [address] Care Team Providers Care Bank Advisor Name Role Phone BALJIT OSEI Unavailable PROBLEMS Type Condition ICD9-CM Code QWM69-FO Code Onset Dates Condition Status SNOMED Code Problem Acne L70.9 Active 58371064 Problem Sciatica of right side M54.31 Active 50086777 Problem Panic disorder [episodic paroxysmal anxiety] without agoraphobia F41.0 Active 12220736 Problem Attention-deficit hyperactivity disorder, predominantly inattentive type F90.0 Active 61655474 Problem Current nonadherence to medical treatment Z91.19 Active 1388053 Problem Acquired hypothyroidism E03.9 Active 650859144 Problem Essential hypertension I10 Active 78339696 Problem Primary insomnia F51.01 Active 6818695 Problem Migraine with aura and without status migrainosus, not intractable G43.109 Active 1220267 Problem Abnormal liver function K76.89 Active 76065121 Problem Obesity E66.9 Active 688692676 Problem Bipolar 2 disorder F31.81 Active 31178502 Problem Postoperative hypothyroidism E89.0 Active 08210078 Problem Generalized anxiety disorder F41.1 Active 28907695 ALLERGIES No Information ENCOUNTERS Encounter Location Date Diagnosis [place] [id number] [address] Feb, [place] [id number] [place] [address] 10498- 9788 Nov, Normal physical exam Z00.00 and Enlarged lymph node R59.9 [place] [id number] [place] [address] 04145- 2534 Nov, Enlarged lymph node R59.9 ; Abnormal liver function K76.89 and Hypothyroid E03.9 [place] [id number] [place] [address] 89176- 8097 Oct, Bipolar 2 disorder F31.81 [facility] [address] [place] [address] 26951- 9453 Oct, Sciatica of right side M54.31 and Essential hypertension I10 [facility] [address] [place] [id number] [place] [address] 57196- 1227 Oct, [facility] [address] [id number] [place] [address] 60326- 5806 Aug, Hypothyroid E03.9 [place] [address] [place] [id number] [place] [address] 15729- 6457 Aug, [place] [address] [place] [id number] [place] [address] 63101- 6405 Aug, Bipolar 2 disorder F31.81 [place] [address] [place] [id number] [place] [address] 14559- 2884 05 Aug, 2017 Abnormal liver function K76.89 [place] [address] [place] [id number] [place] [address] 77250- 4893 Jul, Bipolar 2 disorder F31.81 [facility] [address] [id number] [place] [address] 86664 -9022 Jul, [place] [address] [place] [id number] [place] [address] 14240- 0752 Jul, Bipolar 2 disorder F31.81 ; Generalized anxiety disorder F41.1 ; Attention-deficit hyperactivity disorder, predominantly inattentive type F90.0 and Current nonadherence to medical treatment Z91.19 [facility] [address] [place] [address] 32549 -4412 14 Jul, 2017 Essential hypertension I10 ; Other viral agents as the cause of diseases classified elsewhere B97.89 ; Acute upper respiratory infection, unspecified J06.9 and BMI 40.0-44.9, adult Z68.41 [facility] [address] [address] [id number] [place] [address] 86121- 3792 Jul, [facility] [id number] [place] [address] 91700- 7257 Jul, [facility] [address] [id number] [place] [address] 36351- 7077 Jun, [facility] [address] [address] [id number] [place] [address] 06338- 3343 Jun, [facility] [address] [address] [id number] [place] [address] 81031- 4519 Jun, Dysuria R30.0 ; Urinary tract infection, site not specified N39.0 ; Hematuria, unspecified R31.9 ; Sciatica of right side M54.31 ; Migraine with aura and without status migrainosus, not intractable G43.109 ; Primary insomnia F51.01 ; Essential hypertension I10 and Acquired hypothyroidism E03.9 [place] [address] [place] [id number] [place] [address] 90073- 9706 Jun, Bipolar 2 disorder F31.81 [place] [address] [place] [id number] [place] [address] 80768- 8988 Jun, Bipolar 2 disorder F31.81 [place] [address] [place] [id number] [place] [address] 77490- 0007 May, Sore throat J02.9 ; Acute serous otitis media of left ear, recurrence not specified H65.02 and Hypertension I10 [facility] [address] [place] [id number] [place] [address] 30467- 5412 May, Bipolar 2 disorder F31.81 [facility] [address] [address] [id number] [place] [address] 79291- 9013 Apr, [facility] [address] [address] [id number] [place] [address] 12597- 3392 Apr, Bipolar 2 disorder F31.81 [facility] [address] [id number] [place] [address] 64356- 4514 Mar, [facility] [address] [place] [address] [id number] [place] [address] [place] [address]- 6663 Feb, Bipolar 2 disorder F31.81 ; Attention deficit disorder F90.0 ; COLLEEN (generalized anxiety disorder) F41.1 and Panic disorder [episodic paroxysmal anxiety] without agoraphobia F41.0 [facility] [address], [place] [address] 5825 January, Bipolar 2 disorder F31.81 [facility] [address] [place] [id number] [place] [address] 76751- 6111 Dec, [facility] [address], [place] [address]- 9964 Dec, [facility] [address] [place] [id number] [place] [address] 66847- 4212 Dec, [facility] [address] [place] [address] [id number] [place] [address] 20171- 4780 Dec, Generalized anxiety disorder F41.1 ; Bipolar 2 disorder F31.81 and Panic disorder [episodic paroxysmal anxiety] without agoraphobia F41.0 [facility] [address], [place] [address]- 0140 Dec, [facility] [id number] [place] [address] 84595- 6391 Dec, [facility] [address], [place] [address]- 2468 Nov, [facility] [address], [place] [address]- 8583 Nov, [facility] [address], [place] [address]- 4404 Nov, [facility] [address] [id number], [place] [address]- 2294 Oct, [facility] [address], [place] [address]- 8715 Oct, [facility] [address] [place] [address] [id number] [place] [address] 40088- 2134 Oct, [facility] [id number] [place] [address] 379467- 9047 Oct, [facility] [id number] [place] [address] 28685- 8989 Oct, [facility] [address] [id number] [place] [address] 407953- 4843 Sep, Bipolar 2 disorder F31.81 ; COLLEEN (generalized anxiety disorder) F41.1 ; Attention deficit disorder F90.0 and Panic disorder [episodic paroxysmal anxiety] without agoraphobia F41.0 [facility] [address] [id number] [place] [address] 403973- 3676 Sep, [facility] [id number] [place] [address] 83493- 1363 Sep, [facility] [address] [place] [id number] [place] [address] 51761- 9614 Sep, [facility] [address] [address] [id number] [place] [address] 02949- 0531 Aug, [facility] [address] [place] [id number] [place] [address] 88395- 0780 Aug, [facility] [address] [place] [id number] [place] [address] 25603- 3326 Aug, [facility] [id number] [place] [address] 26553- 6263 Aug, [facility] [address] [place] [address] 398546- [address] Jul, [facility] [address] [place] [address] [id number] [place] [address] 828641- [address] Jul, [facility] [id number] [place] [address] 162375- [address] Jul, [facility] [address] [place] [address] [id number] [place] [address] 18389- 4562 Jun, [facility] [address] [place] [address] [id number] [place] [address] 55756- 1835 Jun, Bipolar 2 disorder F31.81 ; Attention deficit disorder F90.0 ; COLLEEN (generalized anxiety disorder) F41.1 and Panic disorder [episodic paroxysmal anxiety] without agoraphobia F41.0 [facility] [address] 35088- 3778 Jun, [facility] [address] 25476- 6785 Jun, [facility] [address] 41055- 5660 Jun, Right foot pain M79.671 and Nausea and vomiting in adult R11.2 [facility] [address] 22299- 8299 May, [facility] [address] 92580- 5282 May, Other sinusitis, unspecified chronicity J32.9 ; Environmental allergies Z91.09 ; Other chronic pain G89.29 and Sacrococcygeal disorders, not elsewhere classified M53.3 [facility] [address] [place] [address] [id number] [place] [address] 53421 -9017 May, Acute non-recurrent pansinusitis J01.40 and Gastroenteritis K52.9 [facility] [address] [place] [address] [id number] [place] [address] 78805- 5607 May, [facility] [address] [place] [id number] [place] [address] 53523- 8153 May, [facility] [address] 84316- 9904 Apr, Bronchitis J40 [facility] [address] 12222- 2159 Apr, [facility] [address] [place] [address]- 1695 Apr, [facility] [address], [place] [address]- 8992 Apr, [facility] [address], [place] [address] -7528 Apr, Nausea and vomiting in adult R11.2 [facility] [address] [place] [id number] [place] [address] 00509- 6635 Apr, Nausea and vomiting in adult R11.2 [facility] [id number] [place] [address] 03464- 9173 Apr, Bipolar 2 disorder F31.81 ; Generalized anxiety disorder F41.1 ; Panic disorder [episodic paroxysmal anxiety] without agoraphobia F41.0 ; Attention deficit disorder F90.0 and COLLEEN (generalized anxiety disorder) F41.1 [facility] [address] [place] [id number] [place] [address] 54390- 8580 Apr, [facility] [id number] [place] [address] 87298- 4688 Mar, [facility] [address] [place] [id number] [place] [address] 83196- 6230 Mar, [facility] [address], [place] [address]- 7895 Mar, [facility] [id number] [place] [address] 23032- 7074 Mar, Bipolar 2 disorder F31.81 ; Attention deficit disorder F90.0 ; COLLEEN (generalized anxiety disorder) F41.1 and Panic disorder [episodic paroxysmal anxiety] without agoraphobia F41.0 [facility] [address], [place] [address]- 0088 Mar, [facility] [address], [place] [address]- 3011 Feb, Bipolar 2 disorder F31.81 ; Generalized anxiety disorder F41.1 and Attention deficit disorder F90.0 [facility] [address] [id number] [place] [address] 10097- 7373 Feb, Generalized anxiety disorder F41.1 [facility] [address] [id number] [place] [address] 28221- 8504 Feb, Generalized anxiety disorder F41.1 ; Attention deficit disorder F90.0 and Bipolar 2 disorder F31.81 [facility] [address] [id number] [place] [address] 57560- 9044 Feb, Bipolar 2 disorder F31.81 ; Generalized anxiety disorder F41.1 ; Attention deficit disorder F90.0 and Insomnia, unspecified type G47.00 [facility] [address] [place] [id number] [place] [address] 69159- 7904 Feb, Excessive sweating R61 and Breast lump in upper outer quadrant N63 [facility] [address] [place] [id number] [place] [address] 56307 -2453 January, Low back pain M54.5 ; Other chronic pain G89.29 and Urinary tract infection, site unspecified N39.0 [facility] [address] [place] [id number] [place] [address] 43042- 1078 January, Bipolar II disorder F31.81 [facility] [address] [id number] [place] [address] 04481- 1480 January, [facility] [id number] [place] [address] 23306- 5956 January, Insomnia, unspecified type G47.00 and Grief F43.20 [facility] [id number] [place] [address] 01607- 8893 January, [facility] [address] [id number] [place] [address] 80258- 3211 Dec, [facility] [id number] [place] [address] 39087- 0310 Dec, [facility] [address] 58988- 3699 Dec, Bipolar 2 disorder F31.81 ; Generalized anxiety disorder F41.1 and Attention deficit disorder F90.0 [place] [address] 11443- 8798 Dec, Sinusitis J32.9 [facility] [address] 48137- 4826 14 Dec, 2015 Sinusitis J32.9 and Hypothyroid E03.9 [place] [address] 04503- 2343 Dec, [facility] [address] 71783 -2815 Dec, Cough R05 and Allergic rhinitis J30.9 [place] [address] 17275- 0969 Nov, Hypertension I10 ; Obesity E66.9 and Acne L70.9 [place] [address] 03619- 5658 Nov, [place] [address] 19084- 0734 Oct, [place] [address] 92192- 0510 Oct, [place] [address] 47202- 0776 Oct, [facility] [address] 94870- 7009 Oct, [place] [address] 97331- 9414 Sep, Lymphadenitis I88.9 ; Essential hypertension I10 and Acne, unspecified acne type L70.9 [place] [address] 71081- 1299 Sep, [place] [address], [place] [address]- 8268 Sep, [facility] [id number] [place] [address] 24590- 4364 Sep, [facility] [address], [place] [address]- 8521 Sep, Acquired hypothyroidism E03.9 [facility] [address] [place] [id number] [place] [address] 98798- 9767 Aug, Acquired hypothyroidism E03.9 [facility] [address] [place] [place] [id number] [place] [address] 96394- 6519 Aug, Furuncle L02.92 [facility] [address] [place] [id number] [place] [address] 89938- 4922 Aug, [facility] [address] [place] [id number] [place] [address] 21966- 1332 Aug, Bipolar 2 disorder F31.81 ; Generalized anxiety disorder F41.1 ; Attention deficit disorder F90.0 and Obesity E66.9 [facility] [address] [place] [address] 71648- 2571 Aug, [facility] [address] [place] [address] 93707- 0959 Aug, [facility] [id number] [place] [address] 02540- 4468 Aug, Acquired hypothyroidism E03.9 [facility] [address] [place] [address] 32130- 4411 Jul, Acquired hypothyroidism E03.9 ; Upper respiratory tract infection, unspecified type J06.9 and Nonintractable migraine, unspecified migraine type G43.009 [facility] [address], [place] [address]- 7895 14 Jun, 2015 Acute pharyngitis, unspecified J02.9 [facility] [id number] [place] [address] 10291 2546 May, Bipolar II disorder 296.89 ; Attention deficit disorder of childhood without mention of hyperactivity 314.00 ; Generalized anxiety disorder 300.02 and Morbid obesity with BMI of 45.0-49.9, adult 278.01 [facility] [address], [place] [address]- 2546 May, Sinusitis 473.9 [facility] [id number] [place] [address] 24844- 4196 Apr, [facility] [id number] [place] [address] 09417- 5836 Mar, [facility] [id number] [place] [address] 14973- 9426 Mar, Bipolar II disorder 296.89 ; Generalized anxiety disorder 300.02 ; Obesity, unspecified 278.00 and Attention deficit disorder 314.00 [facility] [id number] [place] [address] 07265- 6996 Feb, [facility] [id number] [place] [address] 03783- 9886 January, [facility] [id number] [place] [address] 38035- 0026 January, [facility] [address], [place] [address]- 2546 January, [facility] [address], [place] [address]- 2546 January, [facility] [address], [place] [address]- 8976 Dec, [facility] [id number] [place] [address] 45824- 2546 Dec, [facility] [address], [place] [address]- 2546 Nov, [facility] [id number] [place] [address] 02068- 5673 Nov, [facility] [place] [facility] [address] [id number] [place] [address]- 3428 18 Nov, 2014 [facility] [place] [facility] [address] [id number] [place] [address]- 2305 Nov, [facility] [place] [facility] [address] [id number] [place] [address]- 0031 Nov, [facility] [place] [facility] [address] [id number] [place] [address]- 0811 Nov, [facility] [place] [facility] [address] [id number] [place] [address]- 3009 Nov, [facility] [place] [facility] [address] [id number] [place] [address]- 4472 Nov, [facility] [place] [facility] [address] [id number] [place] [address]- 3778 Nov, [facility] [place] [facility] [address] [id number] [place] [address]- 0531 Nov, [facility] [place] [facility] [address] [id number] [place] [address]- 5716 Nov, [facility] [place] [facility] [address] [id number] [place] [address]- 5677 Nov, [facility] [place] [facility] [address] [id number] [place] [address]- 0670 Nov, [facility] [place] [facility] [address] [id number] [place] [address]- 8731 Nov, [facility] [place] [facility] [address] [id number] [place] [address]- 6954 Oct, [facility] [place] [facility] [address] [id number] [place] [address]- 0832 Oct, [facility] [place] [facility] [address] [id number] [place] [address]- 1928 Oct, [facility] [place] [facility] [address] [id number] [place] [address]- 5979 Oct, 2014 [facility] [place] [facility] [address] [id number] [place] [address]- 9312 Oct, 2014 [facility] [place] [facility] [address] [id number] [place] [address]- 4486 Oct, 2014 [facility] [place] [facility] [address] [id number] [place] [address]- 6346 Oct, 2014 [facility] [place] [facility] [address] [id number] [place] [address]- 6934 Oct, 2014 [facility] [place] [facility] [address] [id number] [place] [address]- 2784 Oct, 2014 [facility] [place] [facility] [address] [facility] [id number] [place] [address]- 8834 Oct, [facility] [place] [facility] [address] [facility] [id number] [place] [address]- 0644 Oct, [facility] [place] [facility] [address] [id number] [place] [address]- 6336 Oct, [facility] [place] [facility] [address] [facility] [id number] [place] [address]- 7368 Sep, [facility] [place] [facility] [address] [facility] [id number] [place] [address]- 6726 Sep, [facility] [place] [facility] [address] [facility] [id number] [address]- 9426 Sep, [facility] [place] [facility] [address] [id number] [place] [address]- 1639 Sep, [facility] [place] [facility] [address] [id number] [place] [address]- 1482 Sep, [facility] [place] [facility] [address] [facility] [id number] [place] [address]- 6957 Sep, [facility] [place] [facility] [address] [id number] [place] [address]- 6026 Sep, [facility] [place] [facility] [address] [id number] [place] [address] Sep, [facility] [place] [facility] [address] [id number] [place] [address] Aug, [facility] [place] [facility] [address] [id number] [id number] [address] Aug, [facility] [place] [facility] [address] [id number] [place] [address] Aug, [facility] [place] [facility] [address] [id number] [place] [address] Aug, [facility] [place] [facility] [address] [id number] [place] [address] Aug, [facility] [place] [facility] [address] [id number] [place] [address] Aug, [facility] [place] [facility] [address] [id number] [place] [address] Aug, [facility] [place] [facility] [address] [id number] [place] [address] Aug, [facility] [place] [facility] [address] [id number] [place] [address] Aug, [facility] [place] [facility] [address] [id number] [place] [address] Aug, [facility] [place] [facility] [address] [id number] [place] [address] Aug, [facility] [place] [facility] [address] [id number] [place] [address] Aug, [facility] [place] [facility] [address] [id number] [place] [address] Aug, [facility] [place] [facility] [address] [id number] [place] [address] Aug, [facility] [place] [facility] [address] [id number] [place] [address] 13 Jul, 2014 [facility] [place] [facility] [address] [id number] [place] [address] Jul, [facility] [place] [facility] [address] [id number] [place] [address] Jul, [facility] [place] [facility] [address] [id number] [place] [address] Jul, [facility] [place] [facility] [address] [id number] [place] [address] Jul, [facility] [place] [facility] [address] [id number] [place] [address] Jul, [facility] [place] [facility] [address] [id number] [place] [address] Jul, [facility] [place] [facility] [address] [id number] [place] [address] Jul, [facility] [place] [facility] [address] [id number] [place] [address] Jul, [facility] [place] [facility] [address] [id number] [place] [address] Jul, [facility] [place] [facility] [address] [id number] [place] [address] Jul, [facility] [place] [facility] [address] [id number] [place] [address] Jul, [facility] [place] [facility] [address] [id number] [place] [address] 16 Jun, 2014 [facility] [place] [facility] [address] [id number] [place] [address] 16 Jun, 2014 [facility] [place] [facility] [address] [id number] [place] [address] 15 Jun, 2014 [facility] [place] [facility] [address] [id number] [place] [address] 14 Jun, 2014 [facility] [place] [facility] [address] [id number] [place] [address] 14 Jun, 2014 [facility] [place] [facility] [address] [id number] [place] [address] 14 Jun, 2014 [facility] [place] [facility] [address] [id number] [place] [address] 14 Jun, 2014 [facility] [place] [facility] [address] [id number] [place] [address] 13 Jun, 2014 [facility] [place] [facility] [address] [id number] [place] [address] 10 Jun, 2014 [facility] [place] [facility] [address] [id number] [place] [address]- 7168 10 Jun, 2014 [facility] [place] [facility] [address] [id number] [place] [address] 09 Jun, 2014 [facility] [place] [facility] [address] [id number] [place] [address] 09 Jun, 2014 [facility] [place] [facility] [address] [id number] [place] [address] 0090 06 Jun, 2014 [facility] [place] [facility] [address] [id number] [place] [address] 4523 06 Jun, 2014 [facility] [place] [facility] [address] [id number] [address] 16 May, 2014 [facility] [place] [facility] [address] [id number], [place] [address] 15 May, 2013 [facility] [place] [facility] [address] [id number] [place] [address] 3922 15 May, 2014 [facility] [place] [facility] [address] [id number] [place] [address]- 9555 15 May, 2014 [facility] [place] [facility] [address] [id number] [address] 15 May, 2013 [facility] [place] [facility] [address] [id number], [place] [address] 2427 15 May, 2013 [facility] [place] [facility] [address] [id number] [place] [address] 8320 15 May, 2013 [facility] [place] [facility] [address] [id number] [place] [address]- 8890 12 May, 2013 [facility] [place] [facility] [address] [id number] [place] [address]- 6537 12 May, 2013 [facility] [place] [facility] [address] [id number] [place] [address]- 7891 10 May, 2013 [facility] [place] [facility] [address] [id number] [place] [address]- 7317 10 May, 2013 [facility] [place] [facility] [address] [id number] [place] [address]- 0624 02 May, 2014 [facility] [place] [facility] [address] [id number] [place] [address]- 6606 May, 2013 [facility] [place] [facility] [address] [id number] [place] [address] 3945 May, [facility] [place] [facility] [address] [id number] [place] [address]- 7947 May, [facility] [place] [facility] [address] [id number] [place] [address]- 2148 Apr, [facility] [place] [facility] [address] [id number] [place] [address]- 6878 Apr, [facility] [place] [facility] [address] [id number] [place] [address]- 4588 Apr, [facility] [place] [facility] [address] [id number] [place] [address]- 7935 Apr, [facility] [place] [facility] [address] [id number] [place] [address]- 2537 Apr, [facility] [place] [facility] [address] [id number] [place] [address]- 2327 Apr, [facility] [place] [facility] [address] [id number] [place] [address] Apr, [facility] [place] [facility] [address] [id number] [place] [address]- 2083 Apr, [facility] [place] [facility] [address] [id number] [place] [address]- 8686 Apr, [facility] [place] [facility] [address] [id number] [place] [address] 8577 Mar, [facility] [place] [facility] [address] [id number] [place] [address] 3135 Mar, [facility] [place] [facility] [address] [id number] [place] [address]- 7442 Mar, [facility] [place] [facility] [address] [id number] [place] [address]- 3487 Mar, [facility] [place] [facility] [address] [id number] [place] [address]- 0296 Mar, [facility] [place] [facility] [address] [id number] [place] [address]- 7518 Mar, [facility] [place] [facility] [address] [id number] [place] [address]- 3619 Mar, [facility] [place] [facility] [address] [id number] [place] [address]- 5162 Mar, [facility] [place] [facility] [address] [id number] [place] [address]- 4848 Mar, [facility] [place] [facility] [address] [id number] [place] [address]- 1279 Mar, [facility] [place] [facility] [address] [id number] [place] [address]- 4879 Mar, [facility] [place] [facility] [address] [id number] [place] [address]- 1366 Mar, [facility] [place] [facility] [address] [id number] [place] [address]- 6608 Mar, [facility] [place] [facility] [address] [id number] [place] [address]- 0864 Mar, [facility] [place] [facility] [address] [id number] [place] [address]- 4799 Mar, [facility] [place] [facility] [address] [id number] [place] [address]- 4632 Mar, [facility] [place] [facility] [address] [id number] [place] [address]- 0834 Mar, [facility] [place] [facility] [address] [id number] [place] [address]- 2375 Mar, [facility] [place] [facility] [address] [id number] [place] [address]- 5706 Feb, [facility] [place] [facility] [address] [id number] [place] [address]- 5811 Feb, [facility] [place] [facility] [address] [id number] [place] [address]- 5220 Feb, [facility] [place] [facility] [address] [id number] [place] [address]- 4655 Feb, [facility] [place] [facility] [address] [id number] [place] [address]- 0949 Feb, [facility] [place] [facility] [address] [id number] [place] [address]- 0811 Feb, [facility] [place] [facility] [address] [id number], [place] [address]- 5172 Feb, [facility] [place] [facility] [address] [id number] [place] [address]- 9707 Feb, [facility] [place] [facility] [address] [id number] [place] [address]- 2865 Feb, [facility] [place] [facility] [address] [id number] [place] [address]- 1744 Feb, [facility] [place] [facility] [address] [id number] [place] [address]- 9763 January, [facility] [address] [id number] [place] [address]- 2979 January, [facility] [place] [facility] [address] [id number] [place] [address]- 1994 January, [facility] [place] [facility] [address] [id number] [place] [address]- 6139 January, [facility] [place] [facility] [address] [id number] [place] [address]- 1636 January, [facility] [place] [facility] [address] [id number] [place] [address]- 8987 January, [facility] [place] [facility] [address] [id number] [place] [address]- 2675 January, [facility] [address] [id number] [place] [address]- 9128 January, [facility] [place] [facility] [address] [id number] [place] [address]- 2323 January, [facility] [place] [facility] [address] [id number] [place] [address]- 6448 January, [facility] [place] [facility] [address] [id number] [place] [address]- 0905 January, [facility] [place] [facility] [address] [id number] [place] [address]- 5964 January, [facility] [place] [facility] [address] [id number] [place] [address]- 1183 January, [facility] [place] [facility] [address] [id number] [place] [address]- 6671 January, [facility] [place] [facility] [address] [id number] [place] [address] January, [facility] [place] [facility] [address] [id number] [place] [address]- 6238 Dec, [facility] [place] [facility] [address] [id number] [place] [address]- 0044 Dec, [facility] [place] [facility] [address] [id number] [place] [address]- 9170 Dec, [facility] [place] [facility] [address] [id number] [place] [address]- 4040 Dec, [facility] [place] [facility] [address] [id number] [place] [address]- 9959 Dec, [facility] [place] [facility] [address] [id number] [place] [address]- 5240 Dec, [facility] [place] [facility] [address] [id number] [place] [address]- 9760 Nov, [facility] [place] [facility] [address] [id number] [place] [address]- 2883 Nov, [facility] [place] [facility] [address] [id number] [place] [address]- 9429 Nov, [facility] [place] [facility] [address] [id number] [place] [address]- 2854 Nov, [facility] [place] [facility] [address] [id number] [place] [address]- 8503 Nov, [facility] [place] [facility] [address] [id number] [place] [address]- 1366 Oct, [facility] [place] [facility] [address] [id number] [place] [address]- 2395 Oct, [facility] [place] [facility] [address] [id number] [place] [address]- 8288 Oct, [facility] [place] [facility] [address] [id number] [place] [address]- 9752 Oct, [facility] [place] [facility] [address] [id number] [place] [address]- 4187 Oct, [facility] [place] [facility] [address] [id number] [place] [address]- 1737 06 Oct, 2013 [facility] [place] [facility] [address] [id number] [place] [address]- 3932 06 Oct, 2013 [facility] [place] [facility] [address] [id number] [place] [address] Oct, [facility] [place] [facility] [address] [id number] [place] [address]- 0640 Oct, [facility] [place] [facility] [address] [id number] [place] [address]- 4890 Oct, [facility] [place] [facility] [address] [id number] [place] [address]- 7868 Oct, [facility] [place] [facility] [address] [id number] [place] [address]- 8368 Sep, [facility] [place] [facility] [address] [id number] [place] [address]- 9669 Sep, [facility] [place] [facility] [address] [id number] [place] [address]- 9169 Sep, [facility] [place] [facility] [address] [id number] [place] [address]- 3171 Sep, [facility] [place] [facility] [address] [id number] [place] [address]- 2965 Aug, [facility] [place] [facility] [address] [id number] [place] [address]- 0336 Aug, [facility] [place] [facility] [address] [id number] [place] [address]- 4042 Jul, [facility] [place] [facility] [address] [id number] [place] [address]- 0019 Jul, [facility] [place] [facility] [address] [id number] [place] [address]- 0634 Jul, [facility] [place] [facility] [address] [id number] [place] [address]- 3237 Jul, [facility] [place] [facility] [address] [id number] [place] [address]- 2545 Jul, [facility] [place] [facility] [address] [id number] [place] [address]- 7738 Jun, [facility] [place] [facility] [address] [id number] [place] [address]- 9780 Jun, [facility] [place] [facility] [address] [id number] [place] [address] 2549 May, [facility] [place] [facility] [address] [id number] [place] [address]- 4702 Mar, [facility] [place] [facility] [address] [id number] [place] [address]- 5349 Mar, [facility] [place] [facility] [address] [id number] [place] [address]- 4801 Mar, [facility] [place] [facility] [address] [id number] [place] [address]- 1494 Feb, [facility] [place] [facility] [address] [id number] [place] [address]- 2968 January, [facility] [place] [facility] [address] [id number] [place] [address]- 1169 Dec, [facility] [place] [facility] [address] [id number] [place] [address]- 9778 Nov, [facility] [place] [facility] [address] [id number], [place] [address] 2540 Nov, [facility] [place] [facility] [address] [id number] [place] [address] 2544 Nov, [facility] [place] [facility] [address] [id number] [place] [address]- 2546 Oct, [facility] [place] [facility] [address] [id number] [place] [address]- 2546 Oct, [facility] [place] [facility] [address] [id number], [place] [address]- 2546 Oct, [facility] [address] [facility] [id number] [place] [address]- 2546 Oct, [facility] [address] [facility] [id number], [place] [address]- 2546 Sep, IMMUNIZATIONS No Known Immunizations SOCIAL HISTORY Never Assessed REASON FOR VISIT Repository Medication PLAN OF CARE VITAL SIGNS MEDICATIONS Medication [...]
--- OUTSIDE RECORDS SUMMARY | 2018-09-23 22:23 | XMS REPORT ---
Author Author KORIN ALEXANDER Organization [facility] Address [address] [place] [address] Care Team Providers Care Floor Assembler Name Role Phone KORIN ALEXANDER Unavailable PROBLEMS Type Condition ICD9-CM Code [id number] Code Onset Dates Condition Status SNOMED Code Problem Acne L70.9 Active 89318449 Problem Sciatica of right side M54.31 Active 77867277 Problem Panic disorder [episodic paroxysmal anxiety] without agoraphobia F41.0 Active 64722876 Problem Attention-deficit hyperactivity disorder, predominantly inattentive type F90.0 Active 85899412 Problem Current nonadherence to medical treatment Z91.19 Active 9203580 Problem Acquired hypothyroidism E03.9 Active 666914839 Problem Essential hypertension I10 Active 27367569 Problem Primary insomnia F51.01 Active 9618831 Problem Migraine with aura and without status migrainosus, not intractable G43.109 Active 4739830 Problem Abnormal liver function K76.89 Active 33980166 Problem Obesity E66.9 Active 875721013 Problem Bipolar 2 disorder F31.81 Active 20770655 Problem Postoperative hypothyroidism E89.0 Active 94095796 Problem Generalized anxiety disorder F41.1 Active 53356760 ALLERGIES No Information ENCOUNTERS Encounter Location Date Diagnosis [facility] [id number] [place] [address] 35727- 2095 Feb, [facility] [address], [place] [address] 9646 Feb, [facility] [id number] [place] [address] 86038- 4844 Nov, Normal physical exam Z00.00 and Enlarged lymph node R59.9 [facility] [id number] [place] [address] 75414- 4674 Nov, Enlarged lymph node R59.9 ; Abnormal liver function K76.89 and Hypothyroid E03.9 [facility] [id number] [place] [address] 15064- 6413 Oct, Bipolar 2 disorder F31.81 [facility] [id number] [place] [address] 52668- 4378 Oct, Sciatica of right side M54.31 and Essential hypertension I10 [place] [address] 44266- 9946 Oct, [place] [id number] [place] [address] 54003- 3290 Aug, Hypothyroid E03.9 [place] [address] 70272- 3690 Aug, [place] [address] 01356- 0033 Aug, Bipolar 2 disorder F31.81 [place] [id number] [place] [address] 61124- 9061 Aug, Abnormal liver function K76.89 [place] [id number] [place] [address] 27772- 4340 Jul, Bipolar 2 disorder F31.81 [facility] [place] [id number] [place] [address] 81407 -5284 Jul, [place] [id number] [place] [address] 86728- 0190 Jul, Bipolar 2 disorder F31.81 ; Generalized anxiety disorder F41.1 ; Attention-deficit hyperactivity disorder, predominantly inattentive type F90.0 and Current nonadherence to medical treatment Z91.19 [facility] [place] [id number] [place] [address] 60292 -1298 14 Jul, 2017 Essential hypertension I10 ; Other viral agents as the cause of diseases classified elsewhere B97.89 ; Acute upper respiratory infection, unspecified J06.9 and BMI 40.0-44.9, adult Z68.41 [place] [id number] [place] [address] 59862- 7743 Jul, [place] [address] 52858- 5657 Jul, [place] [id number] [place] [address] 39265- 3198 Jun, [place] [address] 63088- 9741 Jun, [place] [id number] [place] [address] 10923- 4232 Jun, Dysuria R30.0 ; Urinary tract infection, site not specified N39.0 ; Hematuria, unspecified R31.9 ; Sciatica of right side M54.31 ; Migraine with aura and without status migrainosus, not intractable G43.109 ; Primary insomnia F51.01 ; Essential hypertension I10 and Acquired hypothyroidism E03.9 [place] [id number] [place] [address] 64560- 4168 Jun, Bipolar 2 disorder F31.81 [place] [id number] [place] [address] 61958- 6059 Jun, Bipolar 2 disorder F31.81 [place] [id number] [place] [address] 25714- 1711 May, Sore throat J02.9 ; Acute serous otitis media of left ear, recurrence not specified H65.02 and Hypertension I10 [place] [id number] [place] [address] 83384- 7367 May, Bipolar 2 disorder F31.81 [place] [id number] [place] [address] 21334- 1536 Apr, [place] [id number] [place] [address] 44677- 7225 Apr, Bipolar 2 disorder F31.81 [place] [id number] [place] [address] 81330- 2903 Mar, [facility] [address], [place] [address]- 5280 Feb, Bipolar 2 disorder F31.81 ; Attention deficit disorder F90.0 ; COLLEEN (generalized anxiety disorder) F41.1 and Panic disorder [episodic paroxysmal anxiety] without agoraphobia F41.0 [facility] [id number] [place] [address] 64701- 5507 January, Bipolar 2 disorder F31.81 [facility] [id number] [place] [address] 14516- 7319 Dec, [facility] [id number] [place] [address] 87623- 3869 Dec, [facility] [id number] [place] [address] 03376- 7868 Dec, [facility] [id number] [place] [address] 32685- 4031 Dec, Generalized anxiety disorder F41.1 ; Bipolar 2 disorder F31.81 and Panic disorder [episodic paroxysmal anxiety] without agoraphobia F41.0 [facility] [id number] [place] [address] 94385- 0466 Dec, [facility] [address], [place] [address]- 4900 Dec, [facility] [id number] [place] [address] 73610- 2599 Nov, [facility] [id number] [place] [address] 56515- 0750 Nov, [facility] [id number] [place] [address] 11923- 1497 Nov, [facility] [address], [place] [address]- 4432 Oct, [facility] [id number] [place] [address] 25391- 2546 Oct, [facility] [address], [place] [address]- 1576 Oct, [facility] [id number] [place] [address] 49759- 0346 Oct, [facility] [id number] [place] [address] 61213- 6406 Oct, [facility] [id number] [place] [address] 99977- 5716 Sep, Bipolar 2 disorder F31.81 ; COLLEEN (generalized anxiety disorder) F41.1 ; Attention deficit disorder F90.0 and Panic disorder [episodic paroxysmal anxiety] without agoraphobia F41.0 [facility] [id number] [place] [address] 60182- 5043 Sep, [facility] [id number] [place] [address] 71722- 4723 Sep, [facility] [id number] [place] [address] 71744- 1962 Sep, [facility] [id number] [place] [address] 876343- 2419 Aug, [facility] [address], [place] [address]- 4498 Aug, [facility] [address] 3357 Aug, [facility] [address], [place] [address] 2541 Aug, [facility] [id number] [place] [address] 41446- 3876 Jul, [facility] [address], [place] [address]- 2546 Jul, [facility] [id number] [place] [address] 85970- 4149 Jul, [facility] [id number] [place] [address] 26746- 3656 Jun, [facility] [id number] [place] [address] 04972- 1438 Jun, Bipolar 2 disorder F31.81 ; Attention deficit disorder F90.0 ; COLLEEN (generalized anxiety disorder) F41.1 and Panic disorder [episodic paroxysmal anxiety] without agoraphobia F41.0 [facility] [id number] [place] [address] 20427- 9034 Jun, [facility] [id number] [place] [address] 07216- 8774 Jun, [facility] [id number] [place] [address] 64982- 2274 Jun, Right foot pain M79.671 and Nausea and vomiting in adult R11.2 [facility] [id number] [place] [address] 21894- 2343 May, [facility] [id number] [place] [address] 51149- 7255 May, Other sinusitis, unspecified chronicity J32.9 ; Environmental allergies Z91.09 ; Other chronic pain G89.29 and Sacrococcygeal disorders, not elsewhere classified M53.3 [facility] [id number] [place] [address] 17107 -2095 May, Acute non-recurrent pansinusitis J01.40 and Gastroenteritis K52.9 [facility] [id number] [place] [address] 29019- 3861 May, [facility] [address] 10413- 3599 May, [facility] [id number] [place] [address] 34920- 5088 Apr, Bronchitis J40 [facility] [address] 85367- 9053 Apr, [facility] [address], [place] [address]- 2959 Apr, [facility] [address], [place] [address]- 3303 Apr, [facility] [address], [place] [address] -3000 Apr, Nausea and vomiting in adult R11.2 [facility] [address], [place] [address]- 1871 Apr, Nausea and vomiting in adult R11.2 [facility] [address], [place] [address]- 7691 Apr, Bipolar 2 disorder F31.81 ; Generalized anxiety disorder F41.1 ; Panic disorder [episodic paroxysmal anxiety] without agoraphobia F41.0 ; Attention deficit disorder F90.0 and COLLEEN (generalized anxiety disorder) F41.1 [facility] [address], [place] [address]- 4592 Apr, [facility] [id number] [place] [address] 10393- 4759 Mar, [facility] [address], [place] [address]- 4229 Mar, [facility] [address], [place] [address]- 1827 Mar, [facility] [address], [place] [address]- 4068 Mar, Bipolar 2 disorder F31.81 ; Attention deficit disorder F90.0 ; COLLEEN (generalized anxiety disorder) F41.1 and Panic disorder [episodic paroxysmal anxiety] without agoraphobia F41.0 [facility] [address], [place] [address]- 6603 Mar, [facility] [address], [place] [address]- 1984 Feb, Bipolar 2 disorder F31.81 ; Generalized anxiety disorder F41.1 and Attention deficit disorder F90.0 [facility] [id number] [place] [address] 62881- 2444 Feb, Generalized anxiety disorder F41.1 [facility] [id number] [place] [address] 98092- 8664 Feb, Generalized anxiety disorder F41.1 ; Attention deficit disorder F90.0 and Bipolar 2 disorder F31.81 [facility] [id number] [place] [address] 88245- 4189 Feb, Bipolar 2 disorder F31.81 ; Generalized anxiety disorder F41.1 ; Attention deficit disorder F90.0 and Insomnia, unspecified type G47.00 [facility] [id number] [place] [address] 29190- 8863 Feb, Excessive sweating R61 and Breast lump in upper outer quadrant N63 [facility] [address] [place] [address] 53311 -3363 January, Low back pain M54.5 ; Other chronic pain G89.29 and Urinary tract infection, site unspecified N39.0 [facility] [address] [place] [address] 67802- 1449 January, Bipolar II disorder F31.81 [facility] [id number] [place] [address] 90974- 0911 January, [facility] [id number] [place] [address] 66683- 5038 January, Insomnia, unspecified type G47.00 and Grief F43.20 [facility] [id number] [place] [address] 90078- 0984 January, [facility] [id number] [place] [address] 13254- 2731 Dec, [facility] [id number] [place] [address] 49429- 8649 Dec, [facility] [id number] [place] [address] 32425- 4660 Dec, Bipolar 2 disorder F31.81 ; Generalized anxiety disorder F41.1 and Attention deficit disorder F90.0 [facility] [address] 93584- 7367 Dec, Sinusitis J32.9 [facility] [address] 09114- 1649 Dec, Sinusitis J32.9 and Hypothyroid E03.9 [place] [address] 30211- 9507 Dec, [facility] [id number] [place] [address] 04202 -0225 Dec, Cough R05 and Allergic rhinitis J30.9 [facility] [address] 35635- 4577 Nov, Hypertension I10 ; Obesity E66.9 and Acne L70.9 [place] [address] 82223- 7561 Nov, [place] [id number] [place] [address] 41869- 2364 Oct, [place] [address] 00591- 5424 Oct, [facility] [address] 03540- 5063 Oct, [facility] [address] 63021- 9239 Oct, [facility] [address] 38800- 8635 Sep, Lymphadenitis I88.9 ; Essential hypertension I10 and Acne, unspecified acne type L70.9 [facility] [id number] [place] [address] 23778- 9102 Sep, [facility] [id number] [place] [address] 22540- 6160 Sep, [facility] [id number] [place] [address] 19845- 4797 Sep, [facility] [address] [place] [address] 60126- 6733 Sep, Acquired hypothyroidism E03.9 [facility] [id number] [place] [address] 31142- 7866 Aug, Acquired hypothyroidism E03.9 [facility] [address] [place] [address] 71026- 3704 Aug, Furuncle L02.92 [facility] [address] [place] [address] 18542- 5718 Aug, [facility] [address] [place] [address] 02398- 3709 Aug, Bipolar 2 disorder F31.81 ; Generalized anxiety disorder F41.1 ; Attention deficit disorder F90.0 and Obesity E66.9 [facility] [address] [place] [address] 59384- 4628 Aug, [facility] [address] [place] [address] 87040- 5522 Aug, [facility] [address] [place] [address] 81936- 1579 Aug, Acquired hypothyroidism E03.9 [facility] [address] [place] [address] 85337- 1892 Jul, Acquired hypothyroidism E03.9 ; Upper respiratory tract infection, unspecified type J06.9 and Nonintractable migraine, unspecified migraine type G43.009 [facility] [address] [place] [address] 45849- 9121 Jun, Acute pharyngitis, unspecified J02.9 [facility] [address] 3572 May, Bipolar II disorder 296.89 ; Attention deficit disorder of childhood without mention of hyperactivity 314.00 ; Generalized anxiety disorder 300.02 and Morbid obesity with BMI of 45.0-49.9, adult 278.01 [facility] [id number] [place] [address] 59074- 9596 May, Sinusitis 473.9 [facility] [id number] [place] [address] 95942- 7669 Apr, [facility] [id number] [place] [address] 19132- 3860 Mar, [facility] [id number] [place] [address] 73253- 4556 Mar, Bipolar II disorder 296.89 ; Generalized anxiety disorder 300.02 ; Obesity, unspecified 278.00 and Attention deficit disorder 314.00 [facility] [id number] [place] [address] 27459- 8110 Feb, [facility] [id number] [place] [address] 33419- 3009 January, [facility] [address], [place] [address]- 4385 January, [facility] [id number] [place] [address] 00105- 2086 January, [facility] [address], [place] [address]- 0306 January, [facility] [id number] [place] [address] 96807- 2790 Dec, [facility] [address] [place] [address]- 0446 Dec, [facility] [address] [place] [address] 28619- 8105 Nov, [facility] [place] [facility] [address] [id number] [place] [address]- 1745 18 Nov, 2014 [facility] [place] [facility] [address] [id number] [place] [address]- 7532 18 Nov, 2014 [facility] [place] [facility] [address] [id number] [place] [address]- 7230 Nov, [facility] [place] [facility] [address] [id number] [place] [address]- 5448 Nov, [facility] [place] [facility] [address] [id number] [place] [address]- 0368 Nov, [facility] [place] [facility] [address] [id number] [place] [address]- 3208 Nov, [facility] [place] [facility] [address] [id number] [place] [address]- 5874 Nov, [facility] [place] [facility] [address] [id number] [place] [address]- 8986 Nov, [facility] [place] [facility] [address] [id number] [place] [address]- 2134 Nov, [facility] [place] [facility] [address] [id number] [place] [address]- 3790 Nov, [facility] [place] [facility] [address] [id number] [place] [address]- 3264 Nov, [facility] [place] [facility] [address] [id number] [place] [address]- 0451 Nov, [facility] [place] [facility] [address] [id number] [place] [address]- 8197 Nov, [facility] [place] [facility] [address] [id number] [place] [address]- 2391 Oct, [facility] [place] [facility] [address] [id number] [place] [address]- 6364 Oct, [facility] [place] [facility] [address] [id number] [address]- 0705 Oct, 2014 [facility] [place] [facility] [address] [id number] [place] [address]- 0056 Oct, 2014 [facility] [place] [facility] [address] [id number] [place] 5336 Oct, 2014 [facility] [place] [facility] [address] [id number] [place] [address]- 7376 Oct, 2014 [facility] [place] [facility] [address] [id number] [place] [address]- 1145 Oct, 2014 [facility] [place] [facility] [address] [id number] [place] [address] Oct, 2014 [facility] [place] [facility] [address] [id number] [place] [address] Oct, 2014 [facility] [place] [facility] [address] [facility] [id number] [place] [address] Oct, 2014 [facility] [place] [facility] [address] [id number] [place] [address] Oct, [facility] [place] [facility] [address] [id number] [place] [address] Oct, [facility] [place] [facility] [address] [facility] [id number] [place] [address] Sep, [facility] [place] [facility] [address] [facility] [id number] [place] [address] Sep, [facility] [place] [facility] [address] [id number] [place] [address] Sep, [facility] [place] [facility] [address] [id number] [place] [address] Sep, [facility] [place] [facility] [address] [facility] [id number] [place] [address] Sep, [facility] [place] [facility] [address] [facility] [id number] [place] [address] Sep, [facility] [place] [facility] [address] [id number] [place] [address] Sep, [facility] [place] [facility] [address] [id number] [place] [address] Sep, [facility] [place] [facility] [address] [id number] [place] [address] Aug, [facility] [place] [facility] [address] [id number] [place] [address] Aug, [facility] [place] [facility] [address] [id number] [place] [address] Aug, [facility] [place] [facility] [address] [id number] [place] [address] Aug, [facility] [place] [facility] [address] [id number] [place] [address] Aug, [facility] [place] [facility] [address] [id number] [place] [address] Aug, [facility] [place] [facility] [address] [id number] [place] [address] Aug, [facility] [place] [facility] [address] [id number] [place] [address] 47[address] Aug, [facility] [place] [facility] [address] [id number] [place] [address] Aug, [facility] [place] [facility] [address] [id number] [place] [address]40 Aug, [facility] [place] [facility] [address] [id number] [place] [address] Aug, [facility] [place] [facility] [address] [id number] [place] [address] Aug, [facility] [place] [facility] [address] [id number] [place] [address] Aug, [facility] [place] [facility] [address] [id number] [place] [address] Aug, [facility] [place] [facility] [address] [id number] [place] [address] Jul, [facility] [place] [facility] [address] [id number] [place] [address] Jul, [facility] [place] [facility] [address] [id number] [place] [address] Jul, [facility] [place] [facility] [address] [id number] [place] [address] Jul, [facility] [place] [facility] [address] [id number] [place] [address] Jul, [facility] [place] [facility] [address] [id number] [place] [address] Jul, [facility] [place] [facility] [address] [id number] [place] [address] Jul, [facility] [place] [facility] [address] [id number] [place] [address] Jul, [facility] [place] [facility] [address] [id number] [place] [address] Jul, [facility] [place] [facility] [address] [facility] [id number] [place] [address] Jul, [facility] [place] [facility] [address] [id number] [place] [address] Jul, [facility] [place] [facility] [address] [id number], [place] [address] Jul, [facility] [place] [facility] [address] [id number] [place] [address] Jun, [facility] [place] [facility] [address] [id number] [place] [address] 16 Jun, 2014 [facility] [place] [facility] [address] [id number], [place] [address] 15 Jun, 2014 [facility] [place] [facility] [address] [id number] [place] [address] 14 Jun, 2014 [facility] [place] [facility] [address] [id number] [place] [address] 14 Jun, 2014 [facility] [place] [facility] [address] [id number] [place] [address] 6[address] 14 Jun, 2014 [facility] [place] [facility] [address] [id number] [place] [address] 2728 14 Jun, 2014 [facility] [place] [facility] [address] [id number] [place] [address] 9681 13 Jun, 2014 [facility] [place] [facility] [address] [id number] [place] [address]- 7411 10 Jun, 2014 [facility] [place] [facility] [address] [id number] [place] [address]- 2015 10 Jun, 2014 [facility] [place] [facility] [address] [id number] [place] [address]- 7526 09 Jun, 2014 [facility] [place] [facility] [address] [id number] [place] [address] 6129 09 Jun, 2014 [facility] [place] [facility] [address] [id number] [place] [address] 2073 06 Jun, 2014 [facility] [place] [facility] [address] [id number] [place] [address]- 1634 06 Jun, 2014 [facility] [place] [facility] [address] [id number] [place] [address] 3388 16 May, 2014 [facility] [place] [facility] [address] [id number] [place] [address]- 6654 15 May, 2014 [facility] [place] [facility] [address] [id number] [place] [address]- 9160 15 May, 2014 [facility] [place] [facility] [address] [id number] [place] [address]- 6512 15 May, 2013 [facility] [place] [facility] [address] [id number] [place] [address]- 5632 15 May, 2013 [facility] [place] [facility] [address] [id number] [place] [address]- 6615 15 May, 2013 [facility] [place] [facility] [address] [id number] [place] [address]- 5864 15 May, 2013 [facility] [place] [facility] [address] [id number] [place] [address]- 9996 12 May, 2013 [facility] [place] [facility] [address] [id number] [place] [address]- 9973 12 May, 2013 [facility] [place] [facility] [address] [id number] [place] [address]- 0312 10 May, 2013 [facility] [place] [facility] [address] [id number] [place] [address]- 0769 10 May, 2013 [facility] [place] [facility] [address] [id number] [place] [address]- 2209 02 May, 2013 [facility] [place] [facility] [address] [id number] [place] [address]- 0399 02 May, 2013 [facility] [place] [facility] [address] [id number] [place] [address]- 3949 02 May, 2013 [facility] [place] [facility] [address] [id number] [place] [address]- 7510 02 May, 2013 [facility] [place] [facility] [address] [id number] [place] [address]- 8501 Apr, [facility] [place] [facility] [address] [id number] [place] [address]- 5669 Apr, [facility] [place] [facility] [address] [id number] [place] [address]- 7047 Apr, [facility] [place] [facility] [address] [id number] [place] [address]- 9949 Apr, [facility] [place] [facility] [address] [id number] [place] [address]- 1497 Apr, [facility] [place] [facility] [address] [id number] [place] [address]- 0889 Apr, [facility] [place] [facility] [address] [id number] [place] [address]- 0454 Apr, [facility] [place] [facility] [address] [id number] [place] [address]- 2768 Apr, [facility] [place] [facility] [address] [id number] [place] [address]- 6182 Apr, [facility] [place] [facility] [address] [id number] [place] [address]- 1233 Mar, [facility] [place] [facility] [address] [id number] [place] [address]- 9983 Mar, [facility] [place] [facility] [address] [id number] [place] [address]- 9585 Mar, [facility] [place] [facility] [address] [id number] [place] [address]- 2874 Mar, [facility] [place] [facility] [address] [id number] [place] [address]- 6173 Mar, [facility] [place] [facility] [address] [id number] [place] [address]- 0997 Mar, [facility] [place] [facility] [address] [id number] [place] [address] 3596 Mar, [facility] [place] [facility] [address] [id number] [place] [address]- 7826 Mar, [facility] [place] [facility] [address] [id number] [place] [address]- 6506 Mar, [facility] [place] [facility] [address] [id number] [place] [address]- 8576 Mar, [facility] [place] [facility] [address] [id number] [place] [address]- 4512 Mar, [facility] [place] [facility] [address] [id number] [place] [address]- 8108 Mar, [facility] [place] [facility] [address] [id number] [place] [address]- 0476 Mar, 2013 [facility] [place] [facility] [address] [id number] [place] [address]- 1181 Mar, 2013 [facility] [place] [facility] [address] [id number] [place] [address]- 3249 Mar, 2013 [facility] [place] [facility] [address] [id number] [place] [address]- 0488 Mar, [facility] [place] [facility] [address] [id number] [place] [address]- 6018 Mar, [facility] [place] [facility] [address] [id number] [place] [address]- 9161 Mar, [facility] [place] [facility] [address] [id number] [place] [address]- 9650 Feb, [facility] [place] [facility] [address] [id number] [place] [address]- 2006 Feb, [facility] [place] [facility] [address] [id number] [place] [address]- 0319 Feb, [facility] [place] [facility] [address] [id number] [place] [address]- 4715 Feb, [facility] [place] [facility] [address] [id number] [place] [address]- 5204 Feb, [facility] [place] [facility] [address] [id number] [place] [address]- 6328 Feb, [facility] [place] [facility] [address] [id number] [place] [address]- 0137 Feb, [facility] [place] [facility] [address] [id number] [place] [address]- 0020 Feb, [facility] [place] [facility] [address] [id number] [place] [address]- 8560 Feb, [facility] [place] [facility] [address] [id number] [place] [address]- 9027 Feb, [facility] [address] [id number] [place] [address]- 1994 January, [facility] [place] [facility] [address] [id number] [place] [address]- 7457 January, [facility] [place] [facility] [address] [id number] [place] [address]- 2837 January, [facility] [place] [facility] [address] [id number] [place] [address]- 2243 January, [facility] [place] [facility] [address] [id number] [place] [address]- 1828 January, [facility] [place] [facility] [address] [id number] [place] [address]- 8787 January, [facility] [address] [id number] [place] [address]- 7537 January, [facility] [place] [facility] [address] [id number] [place] [address]- 7420 January, [facility] [place] [facility] [address] [id number] [place] [address]- 6036 January, [facility] [place] [facility] [address] [id number] [place] [address]- 9778 January, [facility] [place] [facility] [address] [id number] [place] [address]- 3889 January, [facility] [place] [facility] [address] [id number] [place] [address]- 0293 January, [facility] [place] [facility] [address] [id number] [place] [address]- 3597 January, [facility] [place] [facility] [address] [id number] [place] [address]- 2503 January, [facility] [place] [facility] [address] [id number] [place] [address]- 6176 January, [facility] [place] [facility] [address] [id number] [place] [address]- 0269 10 Dec, 2013 [facility] [place] [facility] [address] [id number] [place] [address]- 0329 Dec, [facility] [place] [facility] [address] [id number] [place] [address]- 2361 Dec, [facility] [place] [facility] [address] [id number] [place] [address]- 9264 Dec, [facility] [place] [facility] [address] [id number] [place] [address]- 6309 Dec, [facility] [place] [facility] [address] [id number] [place] [address]- 0923 Dec, [facility] [place] [facility] [address] [id number] [place] [address]- 8989 Nov, [facility] [place] [facility] [address] [id number] [place] [address]- 2712 Nov, [facility] [place] [facility] [address] [id number] [place] [address]- 6824 Nov, [facility] [place] [facility] [address] [id number] [place] [address]- 9496 Nov, [facility] [place] [facility] [address] [id number] [place] [address]- 6838 Nov, [facility] [place] [facility] [address] [id number] [place] [address]- 3748 Oct, [facility] [place] [facility] [address] [id number] [place] [address]- 4823 Oct, [facility] [place] [facility] [address] [id number] [place] [address]- 0753 Oct, [facility] [place] [facility] [address] [id number] [place] [address]- 6852 Oct, [facility] [place] [facility] [address] [id number] [place] [address]- 5995 10 Oct, 2013 [facility] [place] [facility] [address] [id number] [place] [address]- 9990 Oct, [facility] [place] [facility] [address] [id number] [place] [address]- 3032 06 Oct, 2013 [facility] [place] [facility] [address] [id number] [place] [address]- 2982 Oct, [facility] [place] [facility] [address] [id number] [place] [address]- 3140 Oct, [facility] [place] [facility] [address] [id number] [place] [address]- 2561 Oct, [facility] [place] [facility] [address] [id number] [place] [address]- 3327 Oct, [facility] [place] [facility] [address] [facility] [id number] [place] [address]- 1899 Sep, [facility] [place] [facility] [address] [id number] [place] [address]- 7424 Sep, [facility] [place] [facility] [address] [id number] [place] [address]- 8989 Sep, [facility] [place] [facility] [address] [facility] [id number] [place] [address]- 9143 Sep, [facility] [place] [facility] [address] [id number] [place] [address]- 9507 Aug, [facility] [place] [facility] [address] [id number] [place] [address]- 2770 Aug, [facility] [place] [facility] [address] [id number] [place] [address]- 4988 Jul, [facility] [place] [facility] [address] [id number] [place] [address]- 3716 Jul, [facility] [place] [facility] [address] [facility] [id number] [place] [address]- 8169 Jul, [facility] [place] [facility] [address] [id number] [place] [address] 2544 Jul, [facility] [place] [facility] [address] [id number] [place] [address]- 9350 Jul, [facility] [place] [facility] [address] [id number] [place] [address]- 3550 Jun, [facility] [place] [facility] [address] [id number] [place] [address]- 6870 Jun, [facility] [place] [facility] [address] [id number] [place] [address]- 8456 May, [facility] [place] [facility] [address] [id number] [place] [address]- 2000 Mar, [facility] [place] [facility] [address] [id number] [place] [address]- 1386 Mar, [facility] [place] [facility] [address] [id number] [place] [address]- 3296 Mar, [facility] [place] [facility] [address] [id number] [place] [address]- 2442 Feb, [facility] [place] [facility] [address] [id number] [place] [address]- 2328 January, [facility] [place] [facility] [address] [id number] [place] [address]- 1273 Dec, [facility] [place] [facility] [address] [id number] [place] [address]- 9212 Nov, [facility] [place] [facility] [address] [id number] [place] [address]- 6027 Nov, [facility] [place] [facility] [address] [id number] [place] [address]- 4559 Nov, [facility] [place] [facility] [address] [id number] [place] [address]- 0071 Oct, [facility] [place] [facility] [address] [id number] [place] [address]- 1875 Oct, [facility] [address] [facility] [id number] [place] [address]- 2546 Oct, [facility] [address] [facility] [id number] [place] [address]- 2546 Oct, [facility] [address] [facility] [id number] [place] [address]- 2546 Sep, IMMUNIZATIONS No Known Immunizations SOCIAL HISTORY Never Assessed REASON FOR VISIT PALS-latuda PLAN OF CARE VITAL SIGNS MEDICATIONS Medication Instructions Dosage Frequency Start Date End Date Duration Status Latuda 40 mg Orally Once a day 1 tablet with food 24h Jul, 90 days Active RESULTS No Results PROCEDURES No [...]
--- OUTSIDE RECORDS SUMMARY | 2018-09-23 22:24 | XMS REPORT ---
Author Author LUC TEE Organization [facility] Address [address] [place] [address] Care Team Providers Care Bottle Label Inspector Name Role Phone TEE CALLE Unavailable PROBLEMS Type Condition ICD9-CM Code VOZ06-BD Code Onset Dates Condition Status SNOMED Code Problem Acne L70.9 Active 54780305 Problem Sciatica of right side M54.31 Active 48819488 Problem Panic disorder [episodic paroxysmal anxiety] without agoraphobia F41.0 Active 20908372 Problem Attention-deficit hyperactivity disorder, predominantly inattentive type F90.0 Active 76866773 Problem Current nonadherence to medical treatment Z91.19 Active 0142905 Problem Acquired hypothyroidism E03.9 Active 150755753 Problem Essential hypertension I10 Active 68319022 Problem Primary insomnia F51.01 Active 6312333 Problem Migraine with aura and without status migrainosus, not intractable G43.109 Active 4016905 Problem Abnormal liver function K76.89 Active 19716342 Problem Obesity E66.9 Active 891824249 Problem Bipolar 2 disorder F31.81 Active 84303820 Problem Postoperative hypothyroidism E89.0 Active 58036193 Problem Generalized anxiety disorder F41.1 Active 54160909 ALLERGIES No Information ENCOUNTERS Encounter Location Date Diagnosis [facility] [id number] [place] [address] 66988- 4150 Nov, Normal physical exam Z00.00 and Enlarged lymph node R59.9 [facility] [id number] [place] [address] 28259- 1470 Nov, Enlarged lymph node R59.9 ; Abnormal liver function K76.89 and Hypothyroid E03.9 [facility] [id number] [address] 0968 Oct, Bipolar 2 disorder F31.81 [facility] [id number] [place] [address] 32475- 6063 Oct, Sciatica of right side M54.31 and Essential hypertension I10 [facility] [id number] [place] [address] 75891- 9386 Oct, [facility] [id number] [place] [address] 71097- 3308 Aug, Hypothyroid E03.9 [facility] [address] 09510- 5274 Aug, [place] [facility] [address] 34334- 2887 Aug, Bipolar 2 disorder F31.81 [facility] [address] 56478- 2466 Aug, Abnormal liver function K76.89 [place] [facility] [address] 14123- 7799 Jul, Bipolar 2 disorder F31.81 [facility] [id number] [place] [address] 79225 -3221 Jul, [facility] [id number] [place] [address] 18532- 7135 Jul, Bipolar 2 disorder F31.81 ; Generalized anxiety disorder F41.1 ; Attention-deficit hyperactivity disorder, predominantly inattentive type F90.0 and Current nonadherence to medical treatment Z91.19 [facility] [id number] [place] [address] 73628 -9637 Jul, Essential hypertension I10 ; Other viral agents as the cause of diseases classified elsewhere B97.89 ; Acute upper respiratory infection, unspecified J06.9 and BMI 40.0-44.9, adult Z68.41 [facility] [id number] [place] [address] 29781- 4357 Jul, [facility] [id number] [place] [address] 39549- 9018 Jul, [facility] [id number] [place] [address] 12319- 6235 Jun, [facility] [id number] [place] [address] 04121- 6896 Jun, [facility] [id number] [place] [address] 17298- 1416 Jun, Dysuria R30.0 ; Urinary tract infection, site not specified N39.0 ; Hematuria, unspecified R31.9 ; Sciatica of right side M54.31 ; Migraine with aura and without status migrainosus, not intractable G43.109 ; Primary insomnia F51.01 ; Essential hypertension I10 and Acquired hypothyroidism E03.9 [facility] [id number] [place] [address] 58073- 4529 Jun, Bipolar 2 disorder F31.81 [facility] [id number] [place] [address] 19928- 4085 Jun, Bipolar 2 disorder F31.81 [facility] [id number] [place] [address] 50449- 3912 May, Sore throat J02.9 ; Acute serous otitis media of left ear, recurrence not specified H65.02 and Hypertension I10 [place] [id number] [place] [address] 22374- 0360 May, Bipolar 2 disorder F31.81 [facility] [id number] [place] [address] 30416- 8608 Apr, [facility] [id number] [place] [address] 50407- 7102 Apr, Bipolar 2 disorder F31.81 [facility] [id number] [place] [address] 95487- 8954 Mar, [facility] [id number] [place] [address] 30875- 9295 Feb, Bipolar 2 disorder F31.81 ; Attention deficit disorder F90.0 ; COLLEEN (generalized anxiety disorder) F41.1 and Panic disorder [episodic paroxysmal anxiety] without agoraphobia F41.0 [facility] [address] [place] [address] 41348- 8171 January, Bipolar 2 disorder F31.81 [facility] [id number] [place] [address] 29114- 5280 Dec, [facility] [id number] [place] [address] 71328- 6101 Dec, [facility] [id number] [place] [address] 45485- 7715 Dec, [facility] [id number] [place] [address] 91709- 1227 Dec, Generalized anxiety disorder F41.1 ; Bipolar 2 disorder F31.81 and Panic disorder [episodic paroxysmal anxiety] without agoraphobia F41.0 [facility] [id number] [place] [address] 47125- 6421 Dec, [facility] [id number] [place] [address] 48019- 9766 Dec, [facility] [id number] [place] [address] 47229- 6428 Nov, [facility] [id number] [place] [address] 87268- 8752 Nov, [facility] [id number] [place] [address] 38630- 8782 Nov, [facility] [id number] [place] [address] 01077- 4923 Oct, [facility] [id number] [place] [address] 64573- 2170 Oct, [facility] [id number] [address]- 6171 Oct, [facility] [id number] [place] [address] 85165- 4021 Oct, [facility] [address], [place] [address]- 1576 Oct, [facility] [address], [place] [address]- 6015 Sep, Bipolar 2 disorder F31.81 ; COLLEEN (generalized anxiety disorder) F41.1 ; Attention deficit disorder F90.0 and Panic disorder [episodic paroxysmal anxiety] without agoraphobia F41.0 [facility] [address] [address]- 9388 Sep, [facility] [id number] [place] [address], [place] 3212 Sep, [facility] [address] 1234 Sep, [facility] [id number] [address]- 3840 Aug, [facility] [address] [address]- 7182 Aug, [facility] [id number] 5570 Aug, [facility] [address] 1759 Aug, [facility] [address], [place] [address]- 2185 Jul, [facility] [id number], [place] [address]- 8524 Jul, [facility] [id number] [address]- 6503 Jul, [facility] [id number] [address]- 6076 Jun, [facility] [address] [address]- 0707 Jun, Bipolar 2 disorder F31.81 ; Attention deficit disorder F90.0 ; COLLEEN (generalized anxiety disorder) F41.1 and Panic disorder [episodic paroxysmal anxiety] without agoraphobia F41.0 [facility] [id number] [place] [address] 71409- 7008 Jun, [facility] [address] 20640- 4750 Jun, [facility] [address] 05225- 6916 Jun, Right foot pain M79.671 and Nausea and vomiting in adult R11.2 [facility] [address] 90940- 7787 May, [facility] [address] 12490- 9612 May, Other sinusitis, unspecified chronicity J32.9 ; Environmental allergies Z91.09 ; Other chronic pain G89.29 and Sacrococcygeal disorders, not elsewhere classified M53.3 [facility] [address] 70542 -6546 May, Acute non-recurrent pansinusitis J01.40 and Gastroenteritis K52.9 [facility] [address] 62399- 8927 May, [facility] [address] 95589- 9286 May, [facility] [address] 32827- 3356 Apr, Bronchitis J40 [facility] [address] 93143- 2310 Apr, [facility] [address] 68455- 7832 Apr, [facility] [address] 95074- 6412 Apr, [facility] [address], [place] [address] -0343 Apr, Nausea and vomiting in adult R11.2 [facility] [address], [place] [address]- 4446 Apr, Nausea and vomiting in adult R11.2 [facility] [id number] [place] [address] 80660- 1353 Apr, Bipolar 2 disorder F31.81 ; Generalized anxiety disorder F41.1 ; Panic disorder [episodic paroxysmal anxiety] without agoraphobia F41.0 ; Attention deficit disorder F90.0 and COLLEEN (generalized anxiety disorder) F41.1 [facility] [address] [address]- 9172 Apr, [facility] [id number] [place] [address] 06533- 6572 Mar, [facility] [address] [place] [address] 09306- 5692 Mar, [facility] [address] [place] [address] 46584- 3888 Mar, [facility] [address], [place] [address]- 0548 Mar, Bipolar 2 disorder F31.81 ; Attention deficit disorder F90.0 ; COLLEEN (generalized anxiety disorder) F41.1 and Panic disorder [episodic paroxysmal anxiety] without agoraphobia F41.0 [facility] [address], [place] [address]- 0878 Mar, [facility] [id number] [place] [address] 66405- 6685 Feb, Bipolar 2 disorder F31.81 ; Generalized anxiety disorder F41.1 and Attention deficit disorder F90.0 [facility] [address] [place] [address] 57042- 9547 Feb, Generalized anxiety disorder F41.1 [facility] [address] [place] [address] 07727- 3845 Feb, Generalized anxiety disorder F41.1 ; Attention deficit disorder F90.0 and Bipolar 2 disorder F31.81 [facility] [address] [place] [address] 90398- 0656 Feb, Bipolar 2 disorder F31.81 ; Generalized anxiety disorder F41.1 ; Attention deficit disorder F90.0 and Insomnia, unspecified type G47.00 [facility] [id number] [place] [address] 61272- 3161 Feb, Excessive sweating R61 and Breast lump in upper outer quadrant N63 [facility] [address] [place] [address] 02160 -9429 January, Low back pain M54.5 ; Other chronic pain G89.29 and Urinary tract infection, site unspecified N39.0 [facility] [id number] [place] [address] 20688- 4889 January, Bipolar II disorder F31.81 [facility] [id number] [place] [address] 85766- 9237 January, [facility] [id number] [place] [address] 95448- 3369 January, Insomnia, unspecified type G47.00 and Grief F43.20 [facility] [id number] [place] [address] 05264- 0538 January, [facility] [id number] [place] [address] 64351- 9311 Dec, [facility] [id number] [place] [address] 48391- 2742 Dec, [facility] [address] [place] [address] 38579- 3335 Dec, Bipolar 2 disorder F31.81 ; Generalized anxiety disorder F41.1 and Attention deficit disorder F90.0 [facility] [id number] [place] [address] 73855- 4696 Dec, Sinusitis J32.9 [facility] [id number] [place] [address] 47587- 0017 14 Dec, 2015 Sinusitis J32.9 and Hypothyroid E03.9 [facility] [address] 36829- 0215 Dec, [facility] [id number] [place] [address] 94215 -0799 Dec, Cough R05 and Allergic rhinitis J30.9 [facility] [id number] [place] [address] 63175- 8013 Nov, Hypertension I10 ; Obesity E66.9 and Acne L70.9 [facility] [address] 10815- 8460 Nov, [facility] [id number] [place] [address] 83909- 3422 Oct, [facility] [address] 56994- 1995 Oct, [facility] [id number] [place] [address] 25011- 5620 Oct, [facility] [id number] [place] [address] 88385- 0034 Oct, [facility] [id number] [place] [address] 22864- 7953 Sep, Lymphadenitis I88.9 ; Essential hypertension I10 and Acne, unspecified acne type L70.9 [facility] [id number] [place] [address] 24152- 0452 Sep, [facility] [id number] [place] [address] 37403- 3469 Sep, [facility] [address], [place] [address]- 8126 Sep, [facility] [id number] [place] [address] 96821- 3221 Sep, Acquired hypothyroidism E03.9 [facility] [id number] [place] [address] 24454- 0386 Aug, Acquired hypothyroidism E03.9 [facility] [id number] [place] [address] 78170- 6437 Aug, Furuncle L02.92 [facility] [id number] [place] [address] 78093- 3145 Aug, [facility] [id number] [place] [address] 75527- 5024 Aug, Bipolar 2 disorder F31.81 ; Generalized anxiety disorder F41.1 ; Attention deficit disorder F90.0 and Obesity E66.9 [facility] [id number] [place] [address] 65267- 1422 Aug, [facility] [id number] [place] [address] 73430- 7833 Aug, [facility] [id number] [place] [address] 43331- 2778 Aug, Acquired hypothyroidism E03.9 [facility] [id number] [place] [address] 96610- 7641 Jul, Acquired hypothyroidism E03.9 ; Upper respiratory tract infection, unspecified type J06.9 and Nonintractable migraine, unspecified migraine type G43.009 [facility] [address] [place] [address] 96365- 4120 14 Jun, 2015 Acute pharyngitis, unspecified J02.9 [facility] [address] [place] [address] 44224- 8699 24 May, 2015 Bipolar II disorder 296.89 ; Attention deficit disorder of childhood without mention of hyperactivity 314.00 ; Generalized anxiety disorder 300.02 and Morbid obesity with BMI of 45.0-49.9, adult 278.01 [facility] [address], [place] [address]- 5346 May, Sinusitis 473.9 [facility] [id number] [address]- 2546 Apr, [facility] [id number] [place] [address] 06474- 0356 Mar, [facility] [id number] [place] [address] 68209- 2546 Mar, Bipolar II disorder 296.89 ; Generalized anxiety disorder 300.02 ; Obesity, unspecified 278.00 and Attention deficit disorder 314.00 [facility] [address], [place] [address]- 4486 Feb, [facility] [id number] [place] [address] 45059- 8206 January, [facility] [id number] [address]- 1146 January, [facility] [id number] [place] [address] 23203- 1286 January, [facility] [address], [place] [address]- 2546 January, [facility] [address], [place] [address]- 7136 Dec, [facility] [address], [place] [address]- 2546 Dec, [facility] [id number] [place] [address] 88775- 2546 Nov, [facility] [id number] [address]- 2546 Nov, [facility] [address], [place] [address]- 7788 Nov, [facility] [place] [facility] [address] [id number] [place] [address]- 6337 11 Nov, 2014 [facility] [place] [facility] [address] [id number] [place] [address]- 3269 Nov, [facility] [place] [facility] [address] [id number] [place] [address]- 5267 Nov, [facility] [place] [facility] [address] [id number] [place] [address]- 2730 Nov, [facility] [place] [facility] [address] [id number] [place] [address]- 9496 Nov, [facility] [place] [facility] [address] [id number] [place] [address]- 6843 Nov, [facility] [place] [facility] [address] [id number] [place] [address]- 7520 Nov, [facility] [place] [facility] [address] [id number] [place] [address]- 5303 Nov, [facility] [place] [facility] [address] [id number] [place] [address]- 8939 Nov, [facility] [place] [facility] [address] [id number] [place] [address]- 7860 Nov, [facility] [place] [facility] [address] [id number] [place] [address]- 8840 Nov, [facility] [place] [facility] [address] [id number] [place] [address]- 8956 Oct, [facility] [place] [facility] [address] [id number] [place] [address]- 2767 Oct, [facility] [place] [facility] [address] [id number] [place] [address]- 8158 Oct, [facility] [place] [facility] [address] [id number] [place] [address]- 4152 Oct, [facility] [place] [facility] [address] [id number] [place] [address]- 0683 Oct, 2014 [facility] [place] [facility] [address] [id number] [place] [address]- 4346 Oct, 2014 [facility] [place] [facility] [address] [id number] [place] [address]- 1836 Oct, 2014 [facility] [place] [facility] [address] [id number] [place] [address]- 6286 Oct, 2014 [facility] [place] [facility] [address] [id number] [place] [address]- 2179 Oct, 2014 [facility] [place] [facility] [address] [id number] [place] [address]- 5363 Oct, 2014 [facility] [place] [facility] [address] [id number] [place] [address]- 1601 Oct, [facility] [place] [facility] [address] [id number] [place] [address]- 5729 Oct, [facility] [place] [facility] [address] [id number] [place] [address]- 7060 Sep, [facility] [place] [facility] [address] [id number] [place] [address]- 1301 Sep, [facility] [place] [facility] [address] [facility] [id number] [place] [address]- 9557 Sep, [facility] [place] [facility] [address] [id number] [place] [address]- 3062 Sep, [facility] [place] [facility] [address] [id number] [place] [address]- 0975 Sep, [facility] [place] [facility] [address] [id number] [place] [address]- 0486 Sep, [facility] [place] [facility] [address] [id number] [place] [address]- 6896 Sep, [facility] [place] [facility] [address] [id number] [place] [address]- 2158 Sep, [facility] [place] [facility] [address] [id number] [place] [address]- 8[address] Aug, [facility] [place] [facility] [address] [id number] [place] [address] Aug, [facility] [place] [facility] [address] [id number] [place] [address] Aug, [facility] [place] [facility] [address] [id number] [place] [address] Aug, [facility] [place] [facility] [address] [id number] [place] [address] Aug, [facility] [place] [facility] [address] [id number] [place] [address] Aug, [facility] [place] [facility] [address] [id number] [place] [address] Aug, [facility] [place] [facility] [address] [id number] [place] [address] Aug, [facility] [place] [facility] [address] [id number] [place] [address] Aug, [facility] [place] [facility] [address] [id number] [place] [address] Aug, [facility] [place] [facility] [address] [id number] [place] [address] Aug, [facility] [place] [facility] [address] [id number] [place] [address] Aug, [facility] [place] [facility] [address] [id number] [place] [address] Aug, [facility] [place] [facility] [address] [id number] [place] [address] Aug, [facility] [place] [facility] [address] [id number] [place] [address] Jul, [facility] [place] [facility] [address] [id number] [place] [address] 13 Jul, 2014 [facility] [place] [facility] [address] [id number] [place] [address] 13 Jul, 2014 [facility] [place] [facility] [address] [id number] [place] [address] Jul, [facility] [place] [facility] [address] [id number] [place] [address] Jul, [facility] [place] [facility] [address] [id number] [place] [address] Jul, [facility] [place] [facility] [address] [id number] [place] [address] Jul, [facility] [place] [facility] [address] [id number] [place] [address] Jul, [facility] [place] [facility] [address] [id number] [place] [address] Jul, [facility] [place] [facility] [address] [id number] [place] [address]- [address] 04 Jul, 2014 [facility] [place] [facility] [address] [id number] [place] [address] Jul, [facility] [place] [facility] [address] [facility] [id number] [place] [address] Jul, [facility] [place] [facility] [address] [id number] [place] [address] 16 Jun, 2014 [facility] [place] [facility] [address] [id number] [address] 16 Jun, 2014 [facility] [place] [facility] [address] [id number] [place] [address] 15 Jun, 2014 [facility] [place] [facility] [address] [id number] [place] [address] 14 Jun, 2014 [facility] [place] [facility] [address] [id number], [place] [address] 14 Jun, 2014 [facility] [place] [facility] [address] [id number] [place] [address] 14 Jun, 2014 [facility] [place] [facility] [address] [id number] [place] [address] 14 Jun, 2014 [facility] [facility] [address] [id number] [place] [address] 13 Jun, 2014 [facility] [place] [facility] [address] [id number] [place] [address]286 10 Jun, 2014 [facility] [place] [facility] [address] [id number] [place] [address] 10 Jun, 2014 [facility] [place] [facility] [address] [id number] [place] [address] 09 Jun, 2014 [facility] [place] [facility] [address] [id number] [place] [address] 8555 09 Jun, 2014 [facility] [place] [facility] [address] [id number] [place] [address] 0[address] 06 Jun, 2014 [facility] [place] [facility] [address] [id number] [place] [address]- 49[address] 06 Jun, 2014 [facility] [place] [facility] [address] [id number] [place] [address] 16 May, 2014 [facility] [place] [facility] [address] [id number] [place] [address] 4546 15 May, 2013 [facility] [place] [facility] [address] [id number] [place] [address] 4256 15 May, 2013 [facility] [place] [facility] [address] [id number] [place] [address]- 2761 15 May, 2013 [facility] [place] [facility] [address] [id number] [place] [address] 2541 15 May, 2013 [facility] [place] [facility] [address] [id number] [place] [address] 4921 15 May, 2013 [facility] [place] [facility] [address] [id number] [place] [address] 4939 15 May, 2013 [facility] [place] [facility] [address] [id number] [place] [address] 7348 12 May, 2013 [facility] [place] [facility] [address] [id number] [place] [address]- 5321 12 May, 2013 [facility] [place] [facility] [address] [id number] [place] [address] 6236 10 May, 2013 [facility] [place] [facility] [address] [id number] [place] [address]- 4680 10 May, 2013 [facility] [place] [facility] [address] [id number] [place] [address]- 2704 02 May, 2013 [facility] [place] [facility] [address] [id number] [place] [address]- 6700 May, 2013 [facility] [place] [facility] [address] [id number] [place] [address]- 5790 May, 2013 [facility] [place] [facility] [address] [id number] [place] [address]- 9440 May, 2013 [facility] [place] [facility] [address] [id number] [place] [address]- 8504 Apr, [facility] [place] [address] [id number] [place] [address]- 4879 Apr, [facility] [place] [facility] [address] [id number] [place] [address]- 111[address] Apr, [facility] [place] [facility] [address] [id number] [place] [address] 1868 Apr, [facility] [place] [address] [id number] [place] [address]- 7969 Apr, [facility] [place] [address] [id number] [place] [address]- 1532 Apr, [facility] [place] [address] [id number] [place] [address]- 1566 Apr, [facility] [place] [facility] [address] [id number] [place] [address]- 4335 Apr, [facility] [place] [facility] [address] [id number] [place] [address]- 4659 Apr, [facility] [place] [facility] [address] [id number] [place] [address] 8405 Mar, [facility] [address] [id number] [place] [address]- 4252 Mar, [facility] [place] [address] [id number] [place] [address]- 4694 Mar, [facility] [address] [id number] [place] [address] 1971 Mar, [facility] [address] [id number] [place] [address] 2123 Mar, [facility] [address] [id number] [place] [address]- 2684 Mar, [facility] [address] [id number] [place] [address] 2549 Mar, [facility] [address] [id number] [place] [address] 5617 Mar, [facility] [address] [id number] [place] [address] 9058 Mar, [facility] [address] [id number] [place] [address] 8098 Mar, [facility] [address] [id number] [place] [address] 4173 Mar, [facility] [address] [id number] [place] [address]- 6163 Mar, [facility] [address] [id number] [place] [address]- 0727 Mar, [facility] [address] [id number] [place] [address]- 5714 Mar, [facility] [address] [id number] [place] [address]- 8472 Mar, [facility] [address] [id number] [place] [address]- 9012 Mar, [facility] [address] [id number] [place] [address] 9338 Mar, [facility] [address] [id number] [place] [address]- 6398 Mar, [facility] [address] [id number] [place] [address]- 7593 Feb, [facility] [address] [id number] [place] [address] 3170 Feb, [facility] [address] [id number] [place] [address]- 9295 Feb, [facility] [address] [id number] [place] [address]- 7679 Feb, [facility] [address] [id number] [place] [address]- 2063 Feb, [facility] [address] [id number] [place] [address]- 8681 Feb, [facility] [address] [id number] [place] [address]- 4776 Feb, [facility] [address] [id number] [place] [address]- 6987 Feb, [facility] [address] [id number] [place] [address]- 7444 Feb, [facility] [address] [id number] [place] [address]- 6271 Feb, [facility] [address] [id number] [place] [address] 1978 January, [facility] [address] [id number] [place] [address] 5210 January, [facility] [address] [id number] [place] [address] 6559 January, [facility] [address] [id number] [place] [address] January, [facility] [address] [id number] [place] [address] 2711 January, [facility] [address] [id number] [place] [address]- 2170 January, [facility] [address] [id number] [place] [address]- 1642 January, [facility] [address] [id number] [place] [address]- 7877 January, [facility] [address] [id number] [place] [address]- 2311 January, [facility] [address] [id number] [place] [address]- 4720 January, [facility] [address] [id number] [place] [address]- 3090 January, [facility] [address] [id number] [place] [address]- 9655 January, [facility] [address] [id number] [place] [address]- 4108 January, [facility] [address] [id number] [place] [address]- 8627 January, [facility] [address] [id number] [place] [address]- 8256 January, [facility] [address] [id number] [place] [address]- 6903 Dec, [facility] [address] [id number] [place] [address]- 2801 Dec, [facility] [address] [id number] [place] [address]- 0923 08 Dec, 2013 [facility] [address] [id number] [place] [address]- 2952 Dec, [facility] [address] [id number] [place] [address]- 7838 Dec, [facility] [address] [id number] [place] [address]- 6097 Dec, [facility] [address] [id number] [place] [address]- 6789 Nov, [facility] [address] [id number] [place] [address]- 5599 Nov, [facility] [address] [facility] [id number] [place] [address]- 1618 Nov, [facility] [address] [id number] [place] [address]- 5832 Nov, [facility] [address] [id number] [place] [address]- 8645 Nov, [facility] [address] [id number] [place] [address]- 7592 Oct, [facility] [address] [facility] [id number] [place] [address]- 3127 Oct, [facility] [address] [id number] [place] [address]- 3007 Oct, [facility] [address] [id number] [place] [address]- 3625 Oct, [facility] [address] [id number] [place] [address]- 5134 10 Oct, 2013 [facility] [address] [id number] [place] [address]- 5107 06 Oct, 2013 [facility] [address] [id number] [place] [address]- 1213 06 Oct, 2013 [facility] [address] [id number] [place] [address]- 4748 Oct, [facility] [address] [id number] [place] [address]70 Oct, [facility] [address] [id number] [place] [address]- 3589 Oct, [facility] [address] [id number] [place] [address]- 8162 Oct, [facility] [address] [id number] [place] [address]- 8356 Sep, [facility] [address] [id number] [place] [address]- 6922 Sep, [facility] [address] [id number] [place] [address]- 1163 Sep, [facility] [address] [id number] [place] [address]- 2100 Sep, [facility] [address] [id number] [place] [address]- 3415 Aug, [facility] [address] [id number] [place] [address]- 5859 Aug, [facility] [address] [id number] [place] [address]- 3958 Jul, [facility] [address] [id number] [place] [address]- 9825 Jul, [facility] [address] [id number] [place] [address]- 0338 Jul, [facility] [address] [id number] [place] [address]- 7276 Jul, [facility] [address] [id number] [place] [address] Jul, [facility] [address] [id number] [place] [address]- 9429 Jun, [facility] [address] [id number] [place] [address]- 0968 Jun, [facility] [address] [id number] [place] [address]- 0546 May, [facility] [address] [id number] [place] [address]- 6298 Mar, [facility] [address] [id number] [place] [address]- 9612 Mar, [facility] [address] [id number] [place] [address]- 5024 Mar, [facility] [address] [id number] [place] [address]- 3579 Feb, [facility] [address] [id number] [place] [address]- 6550 January, [facility] [address] [id number] [place] [address]- 2308 Dec, [facility] [address] [id number] [place] [address]- 7532 Nov, [facility] [address] [id number] [place] [address]- 7897 Nov, [facility] [address] [id number] [place] [address]- 9777 Nov, [facility] [address] [id number] [place] [address]- 8323 Oct, [facility] [address] [id number] [place] [address]- 7175 Oct, [facility] [address] [id number] [place] [address]- 3175 Oct, [facility] [address] [id number] [place] [address] 6626 Oct, [facility] [address] [facility] [id number] [place] [address]- 6806 Sep, IMMUNIZATIONS No Known Immunizations SOCIAL HISTORY Never Assessed REASON FOR VISIT Medication refill request PLAN OF CARE VITAL SIGNS MEDICATIONS No [...]
--- OUTSIDE RECORDS SUMMARY | 2018-09-23 22:28 | XMS REPORT ---
Author Author LUC TEE Organization [facility] Address [address] [place] [address] Care Team Providers Care Shale [employer] Name Role Phone TEE CALLE Unavailable PROBLEMS Type Condition ICD9-CM Code NDL07-IX Code Onset Dates Condition Status SNOMED Code Problem Acne L70.9 Active 80947344 Problem Sciatica of right side M54.31 Active 82884449 Problem Panic disorder [episodic paroxysmal anxiety] without agoraphobia F41.0 Active 86738250 Problem Attention-deficit hyperactivity disorder, predominantly inattentive type F90.0 Active 52900346 Problem Current nonadherence to medical treatment Z91.19 Active 9154445 Problem Acquired hypothyroidism E03.9 Active 658713543 Problem Essential hypertension I10 Active 34751772 Problem Primary insomnia F51.01 Active 4879397 Problem Migraine with aura and without status migrainosus, not intractable G43.109 Active 5278822 Problem Abnormal liver function K76.89 Active 44704451 Problem Obesity E66.9 Active 533849091 Problem Bipolar 2 disorder F31.81 Active 99942434 Problem Postoperative hypothyroidism E89.0 Active 60904830 Problem Generalized anxiety disorder F41.1 Active 49191408 ALLERGIES No Information ENCOUNTERS Encounter Location Date Diagnosis [facility] [id number] [place] [address] 31967- 2509 Nov, Normal physical exam Z00.00 and Enlarged lymph node R59.9 [facility] [id number] [place] [address] 09616- 6610 Nov, Enlarged lymph node R59.9 ; Abnormal liver function K76.89 and Hypothyroid E03.9 [facility] [id number] [address] 7808 Oct, Bipolar 2 disorder F31.81 [facility] [id number] [place] [address] 66576- 1892 Oct, Sciatica of right side M54.31 and Essential hypertension I10 [facility] [id number] [place] [address] 60602- 6918 Oct, [facility] [id number] [place] [address] 48810- 5337 Aug, Hypothyroid E03.9 [facility] [address] 12973- 4700 Aug, [facility] [address] 23596- 4245 Aug, Bipolar 2 disorder F31.81 [facility] [address] 63270- 5790 Aug, Abnormal liver function K76.89 [facility] [address] 72396- 3523 Jul, Bipolar 2 disorder F31.81 [facility] [id number] [place] [address] 20193 -9678 Jul, [facility] [id number] [place] [address] 93481- 4476 Jul, Bipolar 2 disorder F31.81 ; Generalized anxiety disorder F41.1 ; Attention-deficit hyperactivity disorder, predominantly inattentive type F90.0 and Current nonadherence to medical treatment Z91.19 [facility] [id number] [place] [address] 51251 -7366 Jul, Essential hypertension I10 ; Other viral agents as the cause of diseases classified elsewhere B97.89 ; Acute upper respiratory infection, unspecified J06.9 and BMI 40.0-44.9, adult Z68.41 [facility] [id number] [place] [address] 38739- 2725 Jul, [facility] [id number] [place] [address] 33853- 5003 Jul, [facility] [id number] [place] [address] 67624- 8651 Jun, [facility] [id number] [place] [address] 32682- 2935 Jun, [facility] [id number] [place] [address] 06222- 3815 Jun, Dysuria R30.0 ; Urinary tract infection, site not specified N39.0 ; Hematuria, unspecified R31.9 ; Sciatica of right side M54.31 ; Migraine with aura and without status migrainosus, not intractable G43.109 ; Primary insomnia F51.01 ; Essential hypertension I10 and Acquired hypothyroidism E03.9 [facility] [id number] [place] [address] 11244- 6892 Jun, Bipolar 2 disorder F31.81 [facility] [id number] [place] [address] 70728- 5721 Jun, Bipolar 2 disorder F31.81 [facility] [id number] [place] [address] 79344- 0259 May, Sore throat J02.9 ; Acute serous otitis media of left ear, recurrence not specified H65.02 and Hypertension I10 [facility] [id number] [place] [address] 31863- 8282 May, Bipolar 2 disorder F31.81 [facility] [id number] [place] [address] 98981- 5871 Apr, [facility] [id number] [place] [address] 42044- 6043 Apr, Bipolar 2 disorder F31.81 [facility] [id number] [place] [address] 66337- 3148 Mar, [facility] [id number] [place] [address] 89677- 8998 Feb, Bipolar 2 disorder F31.81 ; Attention deficit disorder F90.0 ; COLLEEN (generalized anxiety disorder) F41.1 and Panic disorder [episodic paroxysmal anxiety] without agoraphobia F41.0 [facility] [id number] [place] [address] 96828- 7484 January, Bipolar 2 disorder F31.81 [facility] [id number] [place] [address] 30455- 9718 Dec, [facility] [id number] [place] [address] 66478- 2456 Dec, [facility] [id number] [place] [address] 37576- 7839 Dec, [facility] [id number] [place] [address] 15661- 0112 Dec, Generalized anxiety disorder F41.1 ; Bipolar 2 disorder F31.81 and Panic disorder [episodic paroxysmal anxiety] without agoraphobia F41.0 [facility] [id number] [place] [address] 70477- 0678 Dec, [facility] [id number] [place] [address] 45491- 5346 Dec, [facility] [id number] [place] [address] 58214- 6961 Nov, [facility] [id number] [place] [address] 46399- 7516 Nov, [facility] [id number] [place] [address] 98021- 0440 Nov, [facility] [id number] [place] [address] 35503- 7448 Oct, [facility] [id number] [place] [address] 85544- 1241 Oct, [facility] [id number] [address]- 7791 Oct, [facility] [id number] [place] [address] 61904- 7249 Oct, [facility] [address] [address]- 6564 Oct, [facility] [address] [address]- 9061 Sep, Bipolar 2 disorder F31.81 ; COLLEEN (generalized anxiety disorder) F41.1 ; Attention deficit disorder F90.0 and Panic disorder [episodic paroxysmal anxiety] without agoraphobia F41.0 [facility] [address] [place] [address]- 3860 Sep, [facility] [id number] [place] [address], [place] 5969 Sep, [facility] [id number] 3078 Sep, [facility] [id number] [address]- 2158 Aug, [facility] [address] [place] [address]- 7467 Aug, [facility] [id number] 6701 Aug, [facility] [address] 4020 Aug, [facility] [address] [address]- 8005 Jul, [facility] [id number] [address]- 3267 Jul, [facility] [id number] [place] [address]- 5770 Jul, [facility] [id number] [address]- 4226 Jun, [facility] [address] [address]- 9062 Jun, Bipolar 2 disorder F31.81 ; Attention deficit disorder F90.0 ; COLLEEN (generalized anxiety disorder) F41.1 and Panic disorder [episodic paroxysmal anxiety] without agoraphobia F41.0 [facility] [id number] [place] [address] 76828- 6766 Jun, [facility] [address] 42424- 3937 Jun, [facility] [address] 28164- 1452 Jun, Right foot pain M79.671 and Nausea and vomiting in adult R11.2 [facility] [address] 04364- 0261 May, [facility] [address] 87361- 1587 May, Other sinusitis, unspecified chronicity J32.9 ; Environmental allergies Z91.09 ; Other chronic pain G89.29 and Sacrococcygeal disorders, not elsewhere classified M53.3 [facility] [address] 39565 -2685 May, Acute non-recurrent pansinusitis J01.40 and Gastroenteritis K52.9 [facility] [address] 49138- 7900 May, [facility] [address] 94938- 7580 May, [facility] [address] 34379- 8017 Apr, Bronchitis J40 [facility] [address] 03405- 3425 Apr, [facility] [address] 12888- 9345 Apr, [facility] [address] 41402- 3945 Apr, [facility] [address] [address] -7448 Apr, Nausea and vomiting in adult R11.2 [facility] [address] [address]- 3366 Apr, Nausea and vomiting in adult R11.2 [facility] [id number] [place] [address] 74568- 9504 Apr, Bipolar 2 disorder F31.81 ; Generalized anxiety disorder F41.1 ; Panic disorder [episodic paroxysmal anxiety] without agoraphobia F41.0 ; Attention deficit disorder F90.0 and COLLEEN (generalized anxiety disorder) F41.1 [facility] [address] [address]- 3580 Apr, [facility] [id number] [place] [address] 04998- 4242 Mar, [facility] [id number] [place] [address] 55543- 3403 Mar, [facility] [id number] [place] [address] 17709- 3265 Mar, [facility] [address] [address]- 2993 Mar, Bipolar 2 disorder F31.81 ; Attention deficit disorder F90.0 ; COLLEEN (generalized anxiety disorder) F41.1 and Panic disorder [episodic paroxysmal anxiety] without agoraphobia F41.0 [facility] [address] [address]- 9735 Mar, [facility] [id number] [place] [address] 25958- 0999 Feb, Bipolar 2 disorder F31.81 ; Generalized anxiety disorder F41.1 and Attention deficit disorder F90.0 [facility] [id number] [place] [address] 24395- 0030 Feb, Generalized anxiety disorder F41.1 [facility] [id number] [place] [address] 85350- 9416 Feb, Generalized anxiety disorder F41.1 ; Attention deficit disorder F90.0 and Bipolar 2 disorder F31.81 [facility] [address] [place] [address] 04762- 6210 Feb, Bipolar 2 disorder F31.81 ; Generalized anxiety disorder F41.1 ; Attention deficit disorder F90.0 and Insomnia, unspecified type G47.00 [facility] [id number] [place] [address] 95034- 2254 Feb, Excessive sweating R61 and Breast lump in upper outer quadrant N63 [facility] [id number] [place] [address] 36486 -0436 January, Low back pain M54.5 ; Other chronic pain G89.29 and Urinary tract infection, site unspecified N39.0 [facility] [id number] [place] [address] 38679- 1337 January, Bipolar II disorder F31.81 [facility] [id number] [place] [address] 05424- 2183 January, [facility] [id number] [place] [address] 12647- 4988 January, Insomnia, unspecified type G47.00 and Grief F43.20 [facility] [id number] [place] [address] 30834- 1517 January, [facility] [id number] [place] [address] 33619- 7091 Dec, [facility] [id number] [place] [address] 19676- 5603 Dec, [facility] [id number] [place] [address] 40404- 2787 Dec, Bipolar 2 disorder F31.81 ; Generalized anxiety disorder F41.1 and Attention deficit disorder F90.0 [facility] [id number] [place] [address] 81645- 9500 Dec, Sinusitis J32.9 [facility] [id number] [place] [address] 84362- 6908 14 Dec, 2015 Sinusitis J32.9 and Hypothyroid E03.9 [facility] [address] 09891- 3677 Dec, [facility] [id number] [place] [address] 93221 -7978 Dec, Cough R05 and Allergic rhinitis J30.9 [facility] [id number] [place] [address] 30104- 4130 Nov, Hypertension I10 ; Obesity E66.9 and Acne L70.9 [facility] [address] 64834- 3872 Nov, [facility] [id number] [place] [address] 41786- 6376 Oct, [facility] [address] 36687- 6194 Oct, [facility] [id number] [place] [address] 07150- 5061 Oct, [facility] [id number] [place] [address] 87061- 6409 Oct, [facility] [id number] [place] [address] 72908- 1614 Sep, Lymphadenitis I88.9 ; Essential hypertension I10 and Acne, unspecified acne type L70.9 [facility] [id number] [place] [address] 17631- 4291 Sep, [facility] [id number] [place] [address] 38311- 5163 Sep, [facility] [address] [address]- 3247 Sep, [facility] [id number] [place] [address] 55243- 8757 Sep, Acquired hypothyroidism E03.9 [facility] [id number] [place] [address] 78487- 5881 Aug, Acquired hypothyroidism E03.9 [facility] [id number] [place] [address] 57236- 8336 Aug, Furuncle L02.92 [facility] [id number] [place] [address] 26229- 9566 Aug, [facility] [id number] [place] [address] 24169- 4761 Aug, Bipolar 2 disorder F31.81 ; Generalized anxiety disorder F41.1 ; Attention deficit disorder F90.0 and Obesity E66.9 [facility] [id number] [place] [address] 34754- 6693 Aug, [facility] [id number] [place] [address] 90394- 5176 Aug, [facility] [id number] [place] [address] 51649- 5382 Aug, Acquired hypothyroidism E03.9 [facility] [id number] [place] [address] 53972- 9802 Jul, Acquired hypothyroidism E03.9 ; Upper respiratory tract infection, unspecified type J06.9 and Nonintractable migraine, unspecified migraine type G43.009 [facility] [address] [place] [address] 38999- 1178 14 Jun, 2015 Acute pharyngitis, unspecified J02.9 [facility] [address] [place] [address] 14705- 4253 24 May, 2015 Bipolar II disorder 296.89 ; Attention deficit disorder of childhood without mention of hyperactivity 314.00 ; Generalized anxiety disorder 300.02 and Morbid obesity with BMI of 45.0-49.9, adult 278.01 [facility] [address] [address]- 6286 May, Sinusitis 473.9 [facility] [id number] [address]- 2546 Apr, [facility] [id number] [place] [address] 89372- 1196 Mar, [facility] [id number] [place] [address] 62440- 2546 Mar, Bipolar II disorder 296.89 ; Generalized anxiety disorder 300.02 ; Obesity, unspecified 278.00 and Attention deficit disorder 314.00 [facility] [address] [address]- 4466 Feb, [facility] [id number] [place] [address] 64362- 8716 January, [facility] [id number] [address]- 9126 January, [facility] [id number] [place] [address] 88795- 3596 January, [facility] [address] [address]- 2546 January, [facility] [address] [address]- 5836 Dec, [facility] [address] [address]- 2546 Dec, [facility] [id number] [place] [address] 33824- 2546 Nov, [facility] [id number] [address]- 2546 Nov, [facility] [address] [address]- 3561 Nov, [facility] [place] [facility] [address] [id number] [place] [address]- 3737 11 Nov, 2014 [facility] [place] [facility] [address] [id number] [place] [address]- 6170 Nov, [facility] [place] [facility] [address] [id number] [place] [address]- 9543 Nov, [facility] [place] [facility] [address] [id number] [place] [address]- 8774 Nov, [facility] [place] [facility] [address] [id number] [place] [address]- 0426 Nov, [facility] [place] [facility] [address] [id number] [place] [address]- 5786 Nov, [facility] [place] [facility] [address] [id number] [place] [address]- 0595 Nov, [facility] [place] [facility] [address] [id number] [place] [address]- 0965 Nov, [facility] [place] [facility] [address] [id number] [place] [address]- 4666 Nov, [facility] [place] [facility] [address] [id number] [place] [address]- 5488 Nov, [facility] [place] [facility] [address] [id number] [place] [address]- 4327 Nov, [facility] [place] [facility] [address] [id number] [place] [address]- 1088 Oct, [facility] [place] [facility] [address] [id number] [place] [address]- 4524 Oct, [facility] [place] [facility] [address] [id number] [place] [address]- 5196 Oct, [facility] [place] [facility] [address] [id number] [place] [address]- 0869 Oct, [facility] [place] [facility] [address] [id number] [place] [address]- 8422 Oct, 2014 [facility] [place] [facility] [address] [id number] [place] [address]- 8986 Oct, 2014 [facility] [place] [facility] [address] [id number] [place] [address]- 0236 Oct, 2014 [facility] [place] [facility] [address] [id number] [place] [address]- 2076 Oct, 2014 [facility] [place] [facility] [address] [id number] [place] [address]- 8472 Oct, 2014 [facility] [place] [facility] [address] [id number] [place] [address]- 6565 Oct, 2014 [facility] [place] [facility] [address] [id number] [place] [address]- 9963 Oct, [facility] [place] [facility] [address] [id number] [place] [address]- 5662 Oct, [facility] [place] [facility] [address] [id number] [place] [address]- 6414 Sep, [facility] [place] [facility] [address] [id number] [place] [address]- 4531 Sep, [facility] [place] [facility] [address] [facility] [id number] [place] [address]- 0028 Sep, [facility] [place] [facility] [address] [id number] [place] [address]- 6280 Sep, [facility] [place] [facility] [address] [id number] [place] [address]- 2523 Sep, [facility] [place] [facility] [address] [id number] [place] [address]- 9835 Sep, [facility] [place] [facility] [address] [id number] [place] [address]- 5966 Sep, [facility] [place] [facility] [address] [id number] [place] [address]- 8620 Sep, [facility] [place] [facility] [address] [id number] [place] [address]- 2235 Aug, [facility] [place] [facility] [address] [id number] [place] [address]- 5562 Aug, [facility] [place] [facility] [address] [id number] [place] [address]- 6253 Aug, [facility] [place] [facility] [address] [id number] [place] [address] Aug, [facility] [place] [facility] [address] [id number] [place] [address] Aug, [facility] [place] [facility] [address] [id number] [place] [address] Aug, [facility] [place] [facility] [address] [id number] [place] [address] Aug, [facility] [place] [facility] [address] [id number] [place] [address] Aug, [facility] [place] [facility] [address] [id number] [place] [address] Aug, [facility] [place] [facility] [address] [id number] [place] [address] Aug, [facility] [place] [facility] [address] [id number] [place] [address] Aug, [facility] [place] [facility] [address] [id number] [place] [address] Aug, [facility] [place] [facility] [address] [id number] [place] [address] Aug, [facility] [place] [facility] [address] [id number] [place] [address] Aug, [facility] [place] [facility] [address] [id number] [place] [address] Jul, [facility] [place] [facility] [address] [id number] [place] [address] 13 Jul, 2014 [facility] [place] [facility] [address] [id number] [place] [address] 13 Jul, 2014 [facility] [place] [facility] [address] [id number] [place] [address] Jul, [facility] [place] [facility] [address] [id number] [place] [address] Jul, [facility] [place] [facility] [address] [id number] [place] [address] Jul, [facility] [place] [facility] [address] [id number] [place] [address] Jul, [facility] [place] [facility] [address] [id number] [place] [address] Jul, [facility] [place] [facility] [address] [id number] [place] [address] Jul, [facility] [place] [facility] [address] [id number] [place] [address] 04 Jul, 2014 [facility] [place] [facility] [address] [id number] [place] [address] Jul, [facility] [place] [facility] [address] [facility] [id number] [place] [address] Jul, [facility] [place] [facility] [address] [id number] [place] [address] 16 Jun, 2014 [facility] [place] [facility] [address] [id number] [address] 16 Jun, 2014 [facility] [place] [facility] [address] [id number] [place] [address] 15 Jun, 2014 [facility] [place] [facility] [address] [id number] [place] [address] 14 Jun, 2014 [facility] [place] [facility] [address] [id number] [address] 14 Jun, 2014 [facility] [place] [facility] [address] [id number] [place] [address] 14 Jun, 2014 [facility] [place] [facility] [address] [id number] [place] [address] 14 Jun, 2014 [facility] [place] [facility] [address] [id number] [place] [address]- [address] 13 Jun, 2014 [facility] [place] [facility] [address] [id number] [place] [address] 10 Jun, 2014 [facility] [place] [facility] [address] [id number] [place] [address] 10 Jun, 2014 [facility] [place] [facility] [address] [address] [id number] [place] [address] 09 Jun, 2014 [facility] [place] [facility] [address] [id number] [place] [address] 09 Jun, 2014 [facility] [place] [facility] [address] [id number] [place] [address] 06 Jun, 2014 [facility] [place] [facility] [address] [id number] [place] [address] 06 Jun, 2014 [facility] [place] [facility] [address] [id number] [place] [address] 8725 16 May, 2014 [facility] [place] [facility] [address] [id number] [place] [address] 6983 15 May, 2013 [facility] [place] [facility] [address] [id number] [place] [address] 0827 15 May, 2013 [facility] [place] [facility] [address] [id number] [place] [address] 2307 15 May, 2013 [facility] [place] [facility] [address] [id number] [place] [address]47 15 May, 2013 [facility] [place] [facility] [address] [id number] [place] [address] 5661 15 May, 2013 [facility] [place] [facility] [address] [id number] [place] [address] 3365 15 May, 2013 [facility] [place] [facility] [address] [id number] [place] [address] 1086 12 May, 2013 [facility] [place] [facility] [address] [id number] [place] [address]- [address]286 12 May, 2013 [facility] [place] [facility] [address] [id number] [place] [address] 4010 10 May, 2013 [facility] [place] [facility] [address] [id number] [place] [address]- 8902 10 May, 2013 [facility] [place] [facility] [address] [id number] [place] [address]- 6876 02 May, 2013 [facility] [place] [facility] [address] [id number] [place] [address]- 0855 May, 2013 [facility] [place] [facility] [address] [id number] [place] [address]- 9115 May, 2013 [facility] [place] [facility] [address] [id number] [place] [address]- 2579 May, 2013 [facility] [place] [facility] [address] [id number] [place] [address]- 0896 Apr, [facility] [place] [facility] [address] [id number] [place] [address]- 2634 Apr, [facility] [place] [facility] [address] [id number] [place] [address]- 8316 Apr, [facility] [place] [facility] [address] [id number] [place] [address]- 8927 Apr, [facility] [place] [facility] [address] [id number] [place] [address]- 9519 Apr, [facility] [place] [facility] [address] [id number] [place] [address]- 2816 Apr, [facility] [place] [facility] [address] [id number] [place] [address]- 3477 Apr, [facility] [place] [facility] [address] [id number] [place] [address] 4630 Apr, [facility] [place] [facility] [address] [id number] [place] [address]- 5944 Apr, [facility] [place] [facility] [address] [id number] [place] [address] 75[address] Mar, [facility] [place] [facility] [address] [id number] [place] [address] 7113 Mar, [facility] [place] [facility] [address] [id number] [place] [address]- 7745 Mar, [facility] [place] [facility] [address] [id number] [place] [address] 3470 Mar, [facility] [place] [facility] [address] [id number] [place] [address]- 5901 Mar, [facility] [place] [facility] [address] [id number] [place] [address]- 8603 Mar, [facility] [place] [facility] [address] [id number] [place] [address]- 6264 Mar, [facility] [place] [facility] [address] [id number] [place] [address]- 3453 Mar, [facility] [place] [facility] [address] [id number] [place] [address]- 4202 Mar, [facility] [place] [facility] [address] [id number] [place] [address]- 1650 Mar, [facility] [place] [facility] [address] [id number] [place] [address]2 Mar, [facility] [place] [facility] [address] [id number] [place] [address] 5119 Mar, [facility] [place] [facility] [address] [id number] [place] [address]- 6564 Mar, [facility] [place] [facility] [address] [id number] [place] [address]- 1771 Mar, [facility] [place] [facility] [address] [id number] [place] [address]- 9741 Mar, [facility] [place] [facility] [address] [id number] [place] [address]- 7737 Mar, [facility] [place] [facility] [address] [id number] [place] [address] 2059 Mar, [facility] [place] [facility] [address] [id number] [place] [address] 7050 Mar, [facility] [place] [facility] [address] [id number] [place] [address] 3229 Feb, [facility] [place] [facility] [address] [id number] [place] [address]- 4883 Feb, [facility] [place] [facility] [address] [id number] [place] [address]- 2303 Feb, [facility] [place] [facility] [address] [id number] [place] [address]- 1069 Feb, [facility] [place] [facility] [address] [id number] [place] [address]- 0696 Feb, [facility] [place] [facility] [address] [id number] [place] [address] 1942 Feb, [facility] [place] [facility] [address] [id number] [place] [address]- 8267 Feb, [facility] [place] [facility] [address] [id number] [place] [address]- 9564 Feb, [facility] [place] [facility] [address] [id number] [place] [address]- 2480 Feb, [facility] [place] [facility] [address] [id number] [place] [address]- 9116 Feb, [facility] [place] [facility] [address] [id number] [place] [address]- 9598 January, [facility] [place] [facility] [address] [id number] [place] [address]- 3085 January, [facility] [address] [id number] [place] [address]- 1444 January, [facility] [place] [facility] [address] [id number] [place] [address] January, [facility] [place] [facility] [address] [id number] [place] [address]- 4589 January, [facility] [place] [facility] [address] [id number] [place] [address]- 5917 January, [facility] [place] [facility] [address] [id number] [place] [address]- 7511 January, [facility] [place] [facility] [address] [id number] [place] [address]- 4584 January, [facility] [address] [id number] [place] [address]- 7880 January, [facility] [place] [facility] [address] [id number] [place] [address]- 8534 January, [facility] [place] [facility] [address] [id number] [place] [address]- 3742 January, [facility] [place] [facility] [address] [id number] [place] [address]- 8752 January, [facility] [place] [facility] [address] [id number] [place] [address]- 7739 January, [facility] [place] [facility] [address] [id number] [place] [address]- 0547 January, [facility] [place] [facility] [address] [id number] [place] [address]- 3313 January, [facility] [place] [facility] [address] [id number] [place] [address]- 1711 Dec, [facility] [place] [facility] [address] [id number] [place] [address]- 2830 Dec, [facility] [place] [facility] [address] [id number] [place] [address]- 0114 08 Dec, 2013 [facility] [place] [facility] [address] [id number] [place] [address]- 8569 Dec, [facility] [place] [facility] [address] [id number] [place] [address]- 7185 Dec, [facility] [place] [facility] [address] [id number] [place] [address]- 1739 Dec, [facility] [place] [facility] [address] [id number] [place] [address]- 8662 Nov, [facility] [place] [facility] [address] [id number] [place] [address]- 5665 Nov, [facility] [place] [facility] [address] [facility] [id number] [place] [address]- 3064 Nov, [facility] [place] [facility] [address] [id number] [place] [address]- 8247 Nov, [facility] [place] [facility] [address] [id number] [place] [address]- 4867 Nov, [facility] [place] [facility] [address] [id number] [place] [address]- 5864 Oct, [facility] [place] [facility] [address] [facility] [id number] [place] [address]- 8161 Oct, [facility] [place] [facility] [address] [id number] [place] [address]- 4448 Oct, [facility] [place] [facility] [address] [id number] [place] [address]- 2171 Oct, [facility] [place] [facility] [address] [id number] [place] [address]- 3044 10 Oct, 2013 [facility] [place] [facility] [address] [id number] [place] [address]- 0966 06 Oct, 2013 [facility] [place] [facility] [address] [id number] [place] [address]- 7719 06 Oct, 2013 [facility] [address] [id number] [place] [address]- 9365 Oct, [facility] [place] [facility] [address] [id number] [place] [address] Oct, [facility] [place] [facility] [address] [id number] [place] [address]- 8982 Oct, [facility] [place] [facility] [address] [id number] [place] [address]- 5958 Oct, [facility] [place] [facility] [address] [id number] [place] [address]- 8637 Sep, [facility] [place] [facility] [address] [id number] [place] [address]- 6471 Sep, [facility] [address] [id number] [place] [address]- 6202 Sep, [facility] [place] [facility] [address] [id number] [place] [address]- 9145 Sep, [facility] [place] [facility] [address] [id number] [place] [address]- 9946 Aug, [facility] [place] [facility] [address] [id number] [place] [address]- 0430 Aug, [facility] [place] [facility] [address] [id number] [place] [address]- 9228 Jul, [facility] [place] [facility] [address] [id number] [place] [address]- 0798 Jul, [facility] [place] [facility] [address] [id number] [place] [address]- 2217 Jul, [facility] [place] [facility] [address] [id number] [place] [address]- 9385 Jul, [facility] [place] [facility] [address] [id number] [place] [address] Jul, [facility] [place] [facility] [address] [id number] [place] [address]- 4887 Jun, [facility] [address] [id number] [place] [address]- 5598 Jun, [facility] [place] [facility] [address] [id number] [place] [address]- 7857 May, [facility] [place] [facility] [address] [id number] [place] [address]- 5994 Mar, [facility] [place] [facility] [address] [id number] [place] [address]- 3514 Mar, [facility] [place] [facility] [address] [id number] [place] [address]- 3535 Mar, [facility] [address] [id number] [place] [address]- 6258 Feb, [facility] [place] [facility] [address] [id number] [place] [address]- 0027 January, [facility] [address] [id number] [place] [address]- 8583 Dec, [facility] [place] [facility] [address] [id number] [place] [address]- 5095 Nov, [facility] [place] [facility] [address] [id number] [place] [address]- 1265 Nov, [facility] [place] [facility] [address] [id number] [place] [address]- 5801 Nov, [facility] [place] [facility] [address] [id number] [place] [address]- 7137 Oct, [facility] [place] [facility] [address] [id number] [place] [address]- 7712 Oct, [facility] [place] [facility] [address] [id number] [place] [address]- 5001 Oct, [facility] [place] [facility] [address] [id number] [place] [address] 2546 Oct, [facility] [address] [facility] [id number] [place] [address]- 2546 Sep, IMMUNIZATIONS No Known Immunizations SOCIAL HISTORY Never Assessed REASON FOR VISIT med refill PLAN OF CARE VITAL SIGNS MEDICATIONS Medication Instructions Dosage Frequency Start Date End Date Duration Status Elavil 25 MG Orally Once a day for migraine 1 tablet Dec, Active RESULTS No Results PROCEDURES [...]
--- OUTSIDE RECORDS SUMMARY | 2018-09-23 22:35 | XMS REPORT | Continuity of Care Document ---
Author Author [facility] [place] [facility] Address Unknown Phone Unavailable Allergies Active Description Code Type Severity Reaction Onset Reported/Identified Relationship to Patient Clinical Status Yes penicellin Drug Allergy 10/14/2012 Yes Benzodiazepines Drug Allergy N/A N/A 11/29/2012 Yes Hydrocodone Drug Allergy N/A N/A 11/29/2012 Yes Penicillins Drug Allergy N/A N/A 11/29/2012 Yes Benzodiazepines Drug Allergy 11/29/2012 Yes Hydrocodone Drug Allergy 11/29/2012 Yes Penicillins Drug Allergy 11/29/2012 Yes penicillin G [id number] Drug Allergy Unknown N/A 07/25/2014 Yes Sulfa (Sulfonamide Antibiotics) [id number] Drug Allergy Unknown N/A 2013 Medications There is no data. Problems Date Dx Coded Attending Type Code Diagnosis Diagnosed By 11/22/2009 300.00 AN ANXIETY UNSPEC 11/22/2009 307.47 SI DYSSOMNIA NOS 11/22/2009 311 MO DEPRESS NOS 11/22/2009 NOAH BALDERAS DO 300.00 AN ANXIETY UNSPEC 11/22/2009 NOAH BALDERAS DO 307.47 SI DYSSOMNIA NOS 11/22/2009 NOAH BALDERAS DO 311 MO DEPRESS NOS 11/22/2009 300.00 AN ANXIETY UNSPEC 11/22/2009 307.47 SI DYSSOMNIA NOS 11/22/2009 311 MO DEPRESS NOS 11/22/2009 300.00 AN ANXIETY UNSPEC 11/22/2009 307.47 SI DYSSOMNIA NOS 11/22/2009 311 MO DEPRESS NOS 11/22/2009 NOAH BALDERAS DO 300.00 AN ANXIETY UNSPEC 11/22/2009 NOAH BALDERAS DO 307.47 SI DYSSOMNIA NOS 11/22/2009 NOAH BALDERAS DO 311 MO DEPRESS NOS 11/22/2009 300.00 AN ANXIETY UNSPEC 11/22/2009 307.47 SI DYSSOMNIA NOS 11/22/2009 311 MO DEPRESS NOS 11/22/2009 WHITE DDS, SUNSHINE D 300.00 AN ANXIETY UNSPEC 11/22/2009 WHITE DDS, SUNSHINE D 307.47 SI DYSSOMNIA NOS 11/22/2009 WHITE DDS, SUNSHINE D 311 MO DEPRESS NOS 11/22/2009 BALDERAS DO, NOAH K 300.00 AN ANXIETY UNSPEC 11/22/2009 BALDERAS DO, NOAH K 307.47 SI DYSSOMNIA NOS 11/22/2009 BALDERAS DO, NOAH K 311 MO DEPRESS NOS 11/22/2009 WHITE DDS, SUNSHINE D 300.00 AN ANXIETY UNSPEC 11/22/2009 WHITE DDS, SUNSHINE D 307.47 SI DYSSOMNIA NOS 11/22/2009 WHITE DDS, SUNSHINE D 311 MO DEPRESS NOS 11/22/2009 EVELIN 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, JULIANA R 300.00 AN ANXIETY UNSPEC 11/22/2009 EVELIN PAZN, JULIANA R 307.47 SI DYSSOMNIA NOS 11/22/2009 EVELIN OLMOS, JULIANA R 311 MO DEPRESS NOS 11/22/2009 PRAVEENA OSEI APRNNDA S 300.00 AN ANXIETY UNSPEC 11/22/2009 PRAVEENA OSEI APRNNDA S 307.47 SI DYSSOMNIA NOS 11/22/2009 FARNAZ OLMOS BALJIT S 311 MO DEPRESS NOS 11/22/2009 RICKY RIGGS APRNCY N 300.00 AN ANXIETY UNSPEC 11/22/2009 RICKY RIGGS APRNCY N 307.47 SI DYSSOMNIA NOS 11/22/2009 NUNEZ BRANDAN 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, JENNIFER N 311 MO DEPRESS NOS 11/22/2009 PRAVEENA OSEI APRNNDA S 300.00 AN ANXIETY UNSPEC 11/22/2009 FARNAZ OLMOS BALJIT S 307.47 SI DYSSOMNIA NOS 11/22/2009 FARNAZ OLMOS, BALJIT S 311 MO DEPRESS NOS 11/22/2009 EVELIN 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, JULIANA R 300.00 AN ANXIETY UNSPEC 11/22/2009 EVELIN 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, JULIANA R 307.47 SI DYSSOMNIA NOS 11/22/2009 EVELIN 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, JULIANA R 311 MO DEPRESS NOS 11/22/2009 BALDERAS DO, NOAH K 300.00 AN ANXIETY UNSPEC 11/22/2009 BALDERAS DO, NOAH K 307.47 SI DYSSOMNIA NOS 11/22/2009 BALDERAS DO, NOAH K 311 MO DEPRESS NOS 11/22/2009 EVELIN 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, JULIANA R 300.00 AN ANXIETY UNSPEC 11/22/2009 EVELIN 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, JULIANA R 307.47 SI DYSSOMNIA NOS 11/22/2009 EVELIN 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, JULIANA R 311 MO DEPRESS NOS 11/22/2009 SUNI PHD, ROSALIE A 300.00 AN ANXIETY UNSPEC 11/22/2009 [facility] 307.47 SI DYSSOMNIA NOS 11/22/2009 [facility] A 311 MO DEPRESS NOS 11/22/2009 FARNAZ OLMOS, BALJIT S 300.00 AN ANXIETY UNSPEC 11/22/2009 FARNAZ OLMOS, BALJIT S 307.47 SI DYSSOMNIA NOS 11/22/2009 FARNAZ OLMOS, BALJIT S 311 MO DEPRESS NOS 11/22/2009 FARNAZ OLMOS, BALJIT S 300.00 AN ANXIETY UNSPEC 11/22/2009 FARNAZ OLMOS, BALJIT S 307.47 SI DYSSOMNIA NOS 11/22/2009 FARNAZ OLMOS, BALJIT S 311 MO DEPRESS NOS 11/22/2009 FARNAZ OLMOS, BALJIT S 300.00 AN ANXIETY UNSPEC 11/22/2009 FARNAZ 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, BALJIT S 307.47 SI DYSSOMNIA NOS 11/22/2009 FARNAZ OLMOS, BALJIT S 311 MO DEPRESS NOS 11/22/2009 LUC OLMSO, TEE J 300.00 AN ANXIETY UNSPEC 11/22/2009 LUC OLMOS, TEE J 307.47 SI DYSSOMNIA NOS 11/22/2009 LUC 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, TEE J 311 MO DEPRESS NOS 11/22/2009 LUC PAZN, TEE J 300.00 AN ANXIETY UNSPEC 11/22/2009 LUC 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, TEE J 307.47 SI DYSSOMNIA NOS 11/22/2009 LUC 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, TEE J 311 MO DEPRESS NOS 11/22/2009 LUC 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, TEE J 300.00 AN ANXIETY UNSPEC 11/22/2009 LUC PAZN, TEE J 307.47 SI DYSSOMNIA NOS 11/22/2009 LUC PAZN, TEE J 311 MO DEPRESS NOS 11/22/2009 FARNAZ OLMOS BALJIT S 300.00 AN ANXIETY UNSPEC 11/22/2009 FARNAZ 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, BALJIT S 307.47 SI DYSSOMNIA NOS 11/22/2009 FARNAZ 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, BALJIT S 311 MO DEPRESS NOS 11/22/2009 FARNAZ 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, BALJIT S 300.00 AN ANXIETY UNSPEC 11/22/2009 FARNAZ 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, BALJIT S 307.47 SI DYSSOMNIA NOS 11/22/2009 FARNAZ 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, BALJIT S 311 MO DEPRESS NOS 11/22/2009 [facility], PATRICE R 300.00 AN ANXIETY UNSPEC 11/22/2009 [facility], PATRICE R 307.47 SI DYSSOMNIA NOS 11/22/2009 [facility], PATRICE R 311 MO DEPRESS NOS 11/22/2009 KRUNAL CALLE APRNA J 300.00 AN ANXIETY UNSPEC 11/22/2009 KRUNAL CALLE APRNA J 307.47 SI DYSSOMNIA NOS 11/22/2009 KRUNAL CALLE APRNA J 311 MO DEPRESS NOS 11/22/2009 ALVAREZ VÁZQUEZSJESUS 300.00 AN ANXIETY UNSPEC 11/22/2009 ALVAREZ VÁZQUEZS, JESUS 307.47 SI DYSSOMNIA NOS 11/22/2009 ALVAREZ VÁZQUEZS, JESUS 311 MO DEPRESS NOS 11/22/2009 KRUNAL CALLE APRNA J 300.00 AN ANXIETY UNSPEC 11/22/2009 KRUNAL CALLE APRNA J 307.47 SI DYSSOMNIA NOS 11/22/2009 KRUNAL CALLE APRNA J 311 MO DEPRESS NOS 11/22/2009 FARNAZ OLMOS, BALJIT S 300.00 AN ANXIETY UNSPEC 11/22/2009 FARNAZ OLMOS, BALJIT S 307.47 SI DYSSOMNIA NOS 11/22/2009 FARNAZ 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, BALJIT S 311 MO DEPRESS NOS 11/22/2009 FARNAZ 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, BALJIT S 300.00 AN ANXIETY UNSPEC 11/22/2009 FARNAZ 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, BALJIT S 307.47 SI DYSSOMNIA NOS 11/22/2009 FARNAZ 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, BALJIT S 311 MO DEPRESS NOS 11/22/2009 BALDERAS DOPARESHA K 300.00 AN ANXIETY UNSPEC 11/22/2009 BALDERAS DONOAH K 307.47 SI DYSSOMNIA NOS 11/22/2009 NOAH BALDERAS DO 311 MO DEPRESS NOS 11/22/2009 TEE CALLE APRN 300.00 AN ANXIETY UNSPEC 11/22/2009 TEE CALLE APRN 307.47 SI DYSSOMNIA NOS 11/22/2009 TEE CALLE APRN 311 MO DEPRESS NOS 08/08/2011 Ot 054.2 HERPETIC GINGIVOSTOMAT 08/08/2011 Ot 528.9 ORAL SOFT TISSUE DIS NEC 05/08/2012 Ot 054.2 HERPETIC GINGIVOSTOMAT 05/08/2012 Ot 528.9 ORAL SOFT TISSUE DIS NEC 05/12/2012 Ot 054.10 GENITAL HERPES NOS 10/14/2012 NOAH BALDERAS DO 244.9 UNSPECIFIED ACQUIRED HYPOTHYROIDISM 10/14/2012 NOAH BALDERAS DO 461.9 SINUSITIS ACUTE 10/14/2012 NOAH BALDERAS DO 525.9 UNSPECIFIED DISORDER OF THE TEETH AND SUPPORTING STRUCTURES 10/14/2012 NOAH BALDERAS DO 706.1 OTHER ACNE 10/14/2012 NOAH BALDERAS DO V58.69 LONG-TERM (CURRENT) USE OF OTHER MEDICATIONS 10/14/2012 NOAH BALDERAS DO V70.0 ROUTINE GENERAL MEDICAL EXAMINATION AT A HEALTH CARE FACILITY 10/14/2012 244.9 UNSPECIFIED ACQUIRED HYPOTHYROIDISM 10/14/2012 461.9 SINUSITIS ACUTE 10/14/2012 525.9 UNSPECIFIED DISORDER OF THE TEETH AND SUPPORTING STRUCTURES 10/14/2012 706.1 OTHER ACNE 10/14/2012 V58.69 LONG-TERM ( CURRENT) USE OF OTHER MEDICATIONS 10/14/2012 V70.0 ROUTINE GENERAL MEDICAL EXAMINATION AT A HEALTH CARE FACILITY 10/14/2012 244.9 UNSPECIFIED ACQUIRED HYPOTHYROIDISM 10/14/2012 461.9 SINUSITIS ACUTE 10/14/2012 525.9 UNSPECIFIED DISORDER OF THE TEETH AND SUPPORTING STRUCTURES 10/14/2012 706.1 OTHER ACNE 10/14/2012 V58.69 LONG-TERM ( CURRENT) USE OF OTHER MEDICATIONS 10/14/2012 V70.0 ROUTINE GENERAL MEDICAL EXAMINATION AT A HEALTH CARE FACILITY 10/14/2012 NOAH BALDERAS DO 244.9 UNSPECIFIED ACQUIRED HYPOTHYROIDISM 10/14/2012 NOAH BALDERAS DO 461.9 SINUSITIS ACUTE 10/14/2012 BALDERAS DO, NOAH K 525.9 tooth pain 10/14/2012 BALDERAS DO NOAH K 706.1 OTHER ACNE 10/14/2012 BALDERAS DO NOAH K V58.69 LONG-TERM (CURRENT) USE OF OTHER MEDICATIONS 10/14/2012 BALDERAS DO NOAH K V70.0 ROUTINE GENERAL MEDICAL EXAMINATION AT A HEALTH CARE FACILITY 10/14/2012 244.9 UNSPECIFIED ACQUIRED HYPOTHYROIDISM 10/14/2012 461.9 SINUSITIS ACUTE 10/14/2012 525.9 tooth pain 10/14/2012 706.1 OTHER ACNE 10/14/2012 V58.69 LONG-TERM ( CURRENT) USE OF OTHER MEDICATIONS 10/14/2012 V70.0 ROUTINE GENERAL MEDICAL EXAMINATION AT A HEALTH CARE FACILITY 10/14/2012 WHITE DDS, SUNSHINE D 244.9 UNSPECIFIED ACQUIRED HYPOTHYROIDISM 10/14/2012 WHITE DDS, SUNSHINE D 461.9 SINUSITIS ACUTE 10/14/2012 WHITE DDS, SUNSHINE D 525.9 tooth pain 10/14/2012 WHITE DDS, SUNSHINE D 706.1 OTHER ACNE 10/14/2012 WHITE DDS, SUNSHINE D V58.69 LONG-TERM (CURRENT) USE OF OTHER MEDICATIONS 10/14/2012 WHITE DDS, SUNSHINE D V70.0 ROUTINE GENERAL MEDICAL EXAMINATION AT A HEALTH CARE FACILITY 10/14/2012 BALDERAS DO NOAH K 244.9 UNSPECIFIED ACQUIRED HYPOTHYROIDISM 10/14/2012 BALDERAS DO NOAH K 461.9 SINUSITIS ACUTE 10/14/2012 BALDERAS DO NOAH K 525.9 tooth pain 10/14/2012 BALDERAS DO NOAH K 706.1 OTHER ACNE 10/14/2012 SHERRIE CALLES NOAH K V58.69 LONG-TERM (CURRENT) USE OF OTHER MEDICATIONS 10/14/2012 BALDERAS DO NOAH K V70.0 ROUTINE GENERAL MEDICAL EXAMINATION AT A HEALTH CARE FACILITY 10/14/2012 WHITE DDS, SUNSHINE D 244.9 UNSPECIFIED ACQUIRED HYPOTHYROIDISM 10/14/2012 WHITE DDS, SUNSHINE D 461.9 SINUSITIS ACUTE 10/14/2012 WHITE DDS, SUNSHINE D 525.9 tooth pain 10/14/2012 WHITE DDS, SUNSHINE D 706.1 OTHER ACNE 10/14/2012 WHITE DDS, SUNSHINE D V58.69 LONG-TERM (CURRENT) USE OF OTHER MEDICATIONS 10/14/2012 WHITE DDS, SUNSHINE D V70.0 ROUTINE GENERAL MEDICAL EXAMINATION AT A HEALTH CARE FACILITY 10/14/2012 EVELIN 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, JULIANA R 244.9 UNSPECIFIED ACQUIRED HYPOTHYROIDISM 10/14/2012 EVELIN 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, JULIANA R 461.9 SINUSITIS ACUTE 10/14/2012 EVELIN 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, JULIANA R 525.9 tooth pain 10/14/2012 EVELIN 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, JULIANA R 706.1 OTHER ACNE 10/14/2012 EVELIN 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, JULIANA R V58.69 LONG-TERM (CURRENT) USE OF OTHER MEDICATIONS 10/14/2012 EVELIN 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, JULIANA R V70.0 ROUTINE GENERAL MEDICAL EXAMINATION AT A HEALTH CARE FACILITY 10/14/2012 FARNAZ 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, BALJIT S 244.9 UNSPECIFIED ACQUIRED HYPOTHYROIDISM 10/14/2012 FARNAZ 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, BALJIT S 461.9 SINUSITIS ACUTE 10/14/2012 FARNAZ 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, BALJIT S 525.9 tooth pain 10/14/2012 FARNAZ 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, BALJIT S 706.1 OTHER ACNE 10/14/2012 FARNAZ 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, BALJIT S V58.69 LONG-TERM (CURRENT) USE OF OTHER MEDICATIONS 10/14/2012 FARNAZ 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, BALJIT S V70.0 ROUTINE GENERAL MEDICAL EXAMINATION AT A HEALTH CARE FACILITY 10/14/2012 RICKY RIGGS APRNCY N 244.9 UNSPECIFIED ACQUIRED HYPOTHYROIDISM 10/14/2012 NUNEZ RADHAERO 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, JENNIFER N 461.9 SINUSITIS ACUTE 10/14/2012 MAYRA GIPSON APRN, JENNIFER N 525.9 tooth pain 10/14/2012 NUNEZ CASHERO 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RICKY RaderCY N 706.1 OTHER ACNE 10/14/2012 NUNEZ CASHERO 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, JENNIFER N V58.69 LONG-TERM (CURRENT) USE OF OTHER MEDICATIONS 10/14/2012 NUNEZ CASHERO 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, JENNIFER N V70.0 ROUTINE GENERAL MEDICAL EXAMINATION AT A HEALTH CARE FACILITY 10/14/2012 FARNAZ 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, BALJIT S 244.9 UNSPECIFIED ACQUIRED HYPOTHYROIDISM 10/14/2012 FARNAZ 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, BALJIT S 461.9 SINUSITIS ACUTE 10/14/2012 FARNAZ 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, BALJIT S 525.9 tooth pain 10/14/2012 FARNAZ 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, BALJIT S 706.1 OTHER ACNE 10/14/2012 BALJIT OSEI APRN S V58.69 LONG-TERM (CURRENT) USE OF OTHER MEDICATIONS 10/14/2012 BALJIT OSEI APRN S V70.0 ROUTINE GENERAL MEDICAL EXAMINATION AT A HEALTH CARE FACILITY 10/14/2012 JULIANA WATERS APRN R 244.9 UNSPECIFIED ACQUIRED HYPOTHYROIDISM 10/14/2012 EVELIN OLMOS JULIANA R 461.9 SINUSITIS ACUTE 10/14/2012 EVELIN OLMOS, JULIANA R 525.9 tooth pain 10/14/2012 EVELIN OLMOS, JULIANA R 706.1 OTHER ACNE 10/14/2012 EVELIN OLMOS, JULIANA R V58.69 LONG-TERM (CURRENT) USE OF OTHER MEDICATIONS 10/14/2012 EVELIN OLMOS, JULIANA R V70.0 ROUTINE GENERAL MEDICAL EXAMINATION AT A HEALTH CARE FACILITY 10/14/2012 NOAH BALDERAS DO K 244.9 UNSPECIFIED ACQUIRED HYPOTHYROIDISM 10/14/2012 NOAH BALDERAS DO K 461.9 SINUSITIS ACUTE 10/14/2012 NOAH BALDERAS DO K 525.9 tooth pain 10/14/2012 NOAH BALDERAS DO K 706.1 OTHER ACNE 10/14/2012 NOAH BALDERAS DO K V58.69 LONG-TERM (CURRENT) USE OF OTHER MEDICATIONS 10/14/2012 NOAH BALDERAS DO K V70.0 ROUTINE GENERAL MEDICAL EXAMINATION AT A HEALTH CARE FACILITY 10/14/2012 WILL WATERS APRNINA R 244.9 UNSPECIFIED ACQUIRED HYPOTHYROIDISM 10/14/2012 EVELIN OLMOS JULIANA R 461.9 SINUSITIS ACUTE 10/14/2012 EVELIN OLMOS JULIANA R 525.9 tooth pain 10/14/2012 EVELIN OLMOS JULIANA R 706.1 OTHER ACNE 10/14/2012 EVELIN OLMOS JULIANA R V58.69 LONG-TERM (CURRENT) USE OF OTHER MEDICATIONS 10/14/2012 EVELIN OLMOS JULIANA R V70.0 ROUTINE GENERAL MEDICAL EXAMINATION AT A HEALTH CARE FACILITY 10/14/2012 ROSALIE CULP PHD 244.9 UNSPECIFIED ACQUIRED HYPOTHYROIDISM 10/14/2012 SUNI ZAMORA, ROSALIE Loo 461.9 SINUSITIS ACUTE 10/14/2012 ROSALIE CULP PHD 525.9 tooth pain 10/14/2012 ROSALIE CULP PHD 706.1 OTHER ACNE 10/14/2012 SUNI PHD, ROSALIE Loo V58.69 LONG-TERM (CURRENT) USE OF OTHER MEDICATIONS 10/14/2012 SUNI ZAMORA, ROSALIE Loo V70.0 ROUTINE GENERAL MEDICAL EXAMINATION AT A HEALTH CARE FACILITY 10/14/2012 FARNAZ 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, BALJIT S 244.9 UNSPECIFIED ACQUIRED HYPOTHYROIDISM 10/14/2012 FARNAZ 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, BALJIT S 461.9 SINUSITIS ACUTE 10/14/2012 FARNAZ 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, BALJIT S 525.9 tooth pain 10/14/2012 FARNAZ 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, BALJIT S 706.1 OTHER ACNE 10/14/2012 FARNAZ 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, BALJIT S V58.69 LONG-TERM (CURRENT) USE OF OTHER MEDICATIONS 10/14/2012 FARNAZ 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, BALJIT S V70.0 ROUTINE GENERAL MEDICAL EXAMINATION AT A HEALTH CARE FACILITY 10/14/2012 FARNAZ 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, BALJIT S 244.9 UNSPECIFIED ACQUIRED HYPOTHYROIDISM 10/14/2012 FARNAZ 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, BALJIT S 461.9 SINUSITIS ACUTE 10/14/2012 FARNAZ 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, BALJIT S 525.9 tooth pain 10/14/2012 FARNAZ 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, BALJIT S 706.1 OTHER ACNE 10/14/2012 FARNAZ 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, BALJIT S V58.69 LONG-TERM (CURRENT) USE OF OTHER MEDICATIONS 10/14/2012 FARNAZ 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, BALJIT S V70.0 ROUTINE GENERAL MEDICAL EXAMINATION AT A HEALTH CARE FACILITY 10/14/2012 FARNAZ 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, BALJIT S 244.9 UNSPECIFIED ACQUIRED HYPOTHYROIDISM 10/14/2012 FARNAZ 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, BALJIT S 461.9 SINUSITIS ACUTE 10/14/2012 FARNAZ 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, BALJIT S 525.9 tooth pain 10/14/2012 FARNAZ 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, BALJIT S 706.1 OTHER ACNE 10/14/2012 FARNAZ 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, BALJIT S V58.69 LONG-TERM (CURRENT) USE OF OTHER MEDICATIONS 10/14/2012 FARNAZ 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, BALJIT S V70.0 ROUTINE GENERAL MEDICAL EXAMINATION AT A HEALTH CARE FACILITY 10/14/2012 LUC 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, TEE J 244.9 UNSPECIFIED ACQUIRED HYPOTHYROIDISM 10/14/2012 LUC 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, TEE J 461.9 SINUSITIS ACUTE 10/14/2012 LUC 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, TEE J 525.9 tooth pain 10/14/2012 LUC 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 TEE J 706.1 OTHER ACNE 10/14/2012 LUC 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, TEE J V58.69 LONG-TERM (CURRENT) USE OF OTHER MEDICATIONS 10/14/2012 LUC 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AURATEE J V70.0 ROUTINE GENERAL MEDICAL EXAMINATION AT A HEALTH CARE FACILITY 10/14/2012 LUC PAZN TEE J 244.9 UNSPECIFIED ACQUIRED HYPOTHYROIDISM 10/14/2012 LUC 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, TEE J 461.9 SINUSITIS ACUTE 10/14/2012 AURA CALLE APRNINDA J 525.9 tooth pain 10/14/2012 LUC 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, TEE J 706.1 OTHER ACNE 10/14/2012 LUC OLMOS TEE J V58.69 LONG-TERM (CURRENT) USE OF OTHER MEDICATIONS 10/14/2012 KRUNAL CALLE APRNA J V70.0 ROUTINE GENERAL MEDICAL EXAMINATION AT A HEALTH CARE FACILITY 10/14/2012 LUC PAZNAURATEE J 244.9 UNSPECIFIED ACQUIRED HYPOTHYROIDISM 10/14/2012 LUC PAZN, TEE J 461.9 SINUSITIS ACUTE 10/14/2012 AURA CALLE APRNINDA J 525.9 tooth pain 10/14/2012 LUC PAZN, TEE J 706.1 OTHER ACNE 10/14/2012 LUC OLMOS TEE J V58.69 LONG-TERM (CURRENT) USE OF OTHER MEDICATIONS 10/14/2012 AURA CALLE APRNINDA J V70.0 ROUTINE GENERAL MEDICAL EXAMINATION AT A HEALTH CARE FACILITY 10/14/2012 PRAVEENA OSEI APRNNDA S 244.9 UNSPECIFIED ACQUIRED HYPOTHYROIDISM 10/14/2012 PRAVEENA OSEI APRNNDA S 461.9 SINUSITIS ACUTE 10/14/2012 PRAVEENA OSEI APRNNDA S 525.9 tooth pain 10/14/2012 FARNAZ OLMOS BALJIT S 706.1 OTHER ACNE 10/14/2012 PRAVEENA OSEI APRNNDA S V58.69 LONG-TERM (CURRENT) USE OF OTHER MEDICATIONS 10/14/2012 PRAVEENA OSEI APRNNDA S V70.0 ROUTINE GENERAL MEDICAL EXAMINATION AT A HEALTH CARE FACILITY 10/14/2012 BALJIT OSEI APRN S 244.9 UNSPECIFIED ACQUIRED HYPOTHYROIDISM 10/14/2012 BALJIT OSEI APRN S 461.9 SINUSITIS ACUTE 10/14/2012 BALJIT OSEI APRN S 525.9 tooth pain 10/14/2012 BALJIT OSEI APRN S 706.1 OTHER ACNE 10/14/2012 CRISTIANE OSEI APRNA S V58.69 LONG-TERM (CURRENT) USE OF OTHER MEDICATIONS 10/14/2012 CRISTIANE OSEI APRNA S V70.0 ROUTINE GENERAL MEDICAL EXAMINATION AT A HEALTH CARE FACILITY 10/14/2012 [facility], PATRICE R 244.9 UNSPECIFIED ACQUIRED HYPOTHYROIDISM 10/14/2012 [facility], PATRICE R 461.9 SINUSITIS ACUTE 10/14/2012 [facility] 525.9 TOOTH PAIN 10/14/2012 [facility], PATRICE R 706.1 OTHER ACNE 10/14/2012 [facility], PATRICE R V58.69 LONG-TERM (CURRENT) USE OF OTHER MEDICATIONS 10/14/2012 [facility], PATRICE R V70.0 ROUTINE GENERAL MEDICAL EXAMINATION AT A HEALTH CARE FACILITY 10/14/2012 TEE CALLE APRN 244.9 UNSPECIFIED ACQUIRED HYPOTHYROIDISM 10/14/2012 TEE CALLE APRN 461.9 SINUSITIS ACUTE 10/14/2012 TEE CALLE APRN 525.9 TOOTH PAIN 10/14/2012 TEE CALLE APRN 706.1 OTHER ACNE 10/14/2012 TEE CALLE APRN J V58.69 LONG-TERM (CURRENT) USE OF OTHER MEDICATIONS 10/14/2012 KRUNAL CALLE APRNA J V70.0 ROUTINE GENERAL MEDICAL EXAMINATION AT A HEALTH CARE FACILITY 10/14/2012 JESUS PINO DDS 244.9 UNSPECIFIED ACQUIRED HYPOTHYROIDISM 10/14/2012 JESUS PINO DDS 461.9 SINUSITIS ACUTE 10/14/2012 JESUS PINO DDS 525.9 TOOTH PAIN 10/14/2012 JESUS PINO DDS 706.1 OTHER ACNE 10/14/2012 JESUS PINO DDS V58.69 LONG-TERM (CURRENT) USE OF OTHER MEDICATIONS 10/14/2012 JESUS PINO DDS V70.0 ROUTINE GENERAL MEDICAL EXAMINATION AT A HEALTH CARE FACILITY 10/14/2012 TEE CALLE APRN J 244.9 UNSPECIFIED ACQUIRED HYPOTHYROIDISM 10/14/2012 LUC 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, TEE J 461.9 SINUSITIS ACUTE 10/14/2012 LUC OLMOS, TEE J 525.9 TOOTH PAIN 10/14/2012 LUC 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, TEE J 706.1 OTHER ACNE 10/14/2012 LUC 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, TEE J V58.69 LONG-TERM (CURRENT) USE OF OTHER MEDICATIONS 10/14/2012 AURA CALLE APRNINDA J V70.0 ROUTINE GENERAL MEDICAL EXAMINATION AT A HEALTH CARE FACILITY 10/14/2012 FARNAZ OLMOS BALJIT S 244.9 UNSPECIFIED ACQUIRED HYPOTHYROIDISM 10/14/2012 FARNAZ OLMOS BALJIT S 461.9 SINUSITIS ACUTE 10/14/2012 PRAVEENA OSEI APRNNDA S 525.9 TOOTH PAIN 10/14/2012 FARNAZ OLMOS BALJIT S 706.1 OTHER ACNE 10/14/2012 FARNAZ OLMOS BALJIT S V58.69 LONG-TERM (CURRENT) USE OF OTHER MEDICATIONS 10/14/2012 FARNAZ OLMOS BALJIT S V70.0 ROUTINE GENERAL MEDICAL EXAMINATION AT A HEALTH CARE FACILITY 10/14/2012 FARNAZ OLMOS BALJIT S 244.9 UNSPECIFIED ACQUIRED HYPOTHYROIDISM 10/14/2012 FARNAZ OLMOS BALJIT S 461.9 SINUSITIS ACUTE 10/14/2012 FARNAZ OLMOS BALJIT S 525.9 TOOTH PAIN 10/14/2012 FARNAZ OLMOS, BALJIT S 706.1 OTHER ACNE 10/14/2012 FARNAZ OLMOS BALJIT S V58.69 LONG-TERM (CURRENT) USE OF OTHER MEDICATIONS 10/14/2012 FARNAZ OLMOS BALJIT S V70.0 ROUTINE GENERAL MEDICAL EXAMINATION AT A HEALTH CARE FACILITY 10/14/2012 BALDERAS DOPARESHA K 244.9 UNSPECIFIED ACQUIRED HYPOTHYROIDISM 10/14/2012 BALDERAS DOPARESHA K 461.9 SINUSITIS ACUTE 10/14/2012 NOAH BALDERAS DO K 525.9 TOOTH PAIN 10/14/2012 NOAH BALDERAS DO K 706.1 OTHER ACNE 10/14/2012 NOAH BALDERAS DO K V58.69 LONG-TERM (CURRENT) USE OF OTHER MEDICATIONS 10/14/2012 NOAH BALDERAS DO K V70.0 ROUTINE GENERAL MEDICAL EXAMINATION AT A HEALTH CARE FACILITY 10/14/2012 LUC 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 TEE J 244.9 UNSPECIFIED ACQUIRED HYPOTHYROIDISM 10/14/2012 LUC 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 TEE J 461.9 SINUSITIS ACUTE 10/14/2012 LUC 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 TEE J 525.9 TOOTH PAIN 10/14/2012 LUC 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 TEE J 706.1 OTHER ACNE 10/14/2012 LUC OLMOS TEE J V58.69 LONG-TERM (CURRENT) USE OF OTHER MEDICATIONS 10/14/2012 LUC OLMOS TEE J V70.0 ROUTINE GENERAL MEDICAL EXAMINATION AT A HEALTH CARE FACILITY 11/05/2012 780.52 INSOMNIA UNSPECIFIED 11/05/2012 919.4 INSECT BITE NONVENOMOUS OF OTHER MULTIPLE AND UNSPECIFIED SITES WITHOUT INFECTION 11/05/2012 780.52 INSOMNIA UNSPECIFIED 11/05/2012 919.4 INSECT BITE NONVENOMOUS OF OTHER MULTIPLE AND UNSPECIFIED SITES WITHOUT INFECTION 11/05/2012 NOAH BALDERAS DO K 780.52 INSOMNIA UNSPECIFIED 11/05/2012 NOAH BALDERAS DO K 919.4 INSECT BITE NONVENOMOUS OF OTHER MULTIPLE AND UNSPECIFIED SITES WITHOUT INFECTION 11/05/2012 780.52 INSOMNIA UNSPECIFIED 11/05/2012 919.4 INSECT BITE NONVENOMOUS OF OTHER MULTIPLE AND UNSPECIFIED SITES WITHOUT INFECTION 11/05/2012 WHITE DDS, SUNSHINE D 780.52 INSOMNIA UNSPECIFIED 11/05/2012 WHITE DDS, SUNSHINE D 919.4 INSECT BITE NONVENOMOUS OF OTHER MULTIPLE AND UNSPECIFIED SITES WITHOUT INFECTION 11/05/2012 NOAH BALDERAS DO K 780.52 INSOMNIA UNSPECIFIED 11/05/2012 NOAH BALDERAS DO K 919.4 INSECT BITE NONVENOMOUS OF OTHER MULTIPLE AND UNSPECIFIED SITES WITHOUT INFECTION 11/05/2012 WHITE DDS, SUNSHINE D 780.52 INSOMNIA UNSPECIFIED 11/05/2012 WHITE DDS, SUNSHINE D 919.4 INSECT BITE NONVENOMOUS OF OTHER MULTIPLE AND UNSPECIFIED SITES WITHOUT INFECTION 11/05/2012 EVELIN 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, JULIANA R 780.52 INSOMNIA UNSPECIFIED 11/05/2012 EVELIN 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, JULIANA R 919.4 INSECT BITE NONVENOMOUS OF OTHER MULTIPLE AND UNSPECIFIED SITES WITHOUT INFECTION 11/05/2012 FARNAZ 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, BALJIT S 780.52 INSOMNIA UNSPECIFIED 11/05/2012 FARNAZ 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, BALJIT S 919.4 INSECT BITE NONVENOMOUS OF OTHER MULTIPLE AND UNSPECIFIED SITES WITHOUT INFECTION 11/05/2012 NUNEZ CASHERO 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, JENNIFER N 780.52 INSOMNIA UNSPECIFIED 11/05/2012 NUNEZ CASHERO 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, JENNIFER N 919.4 INSECT BITE NONVENOMOUS OF OTHER MULTIPLE AND UNSPECIFIED SITES WITHOUT INFECTION 11/05/2012 FARNAZ 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, BALJIT S 780.52 INSOMNIA UNSPECIFIED 11/05/2012 FARNAZ 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, BALJIT S 919.4 INSECT BITE NONVENOMOUS OF OTHER MULTIPLE AND UNSPECIFIED SITES WITHOUT INFECTION 11/05/2012 EVELIN 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, JULIANA R 780.52 INSOMNIA UNSPECIFIED 11/05/2012 EVELIN 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, JULIANA R 919.4 INSECT BITE NONVENOMOUS OF OTHER MULTIPLE AND UNSPECIFIED SITES WITHOUT INFECTION 11/05/2012 BALDERAS DO, NOAH K 780.52 INSOMNIA UNSPECIFIED 11/05/2012 BALDERAS DO, NOAH K 919.4 INSECT BITE NONVENOMOUS OF OTHER MULTIPLE AND UNSPECIFIED SITES WITHOUT INFECTION 11/05/2012 EVELIN 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, JULIANA R 780.52 INSOMNIA UNSPECIFIED 11/05/2012 EVELIN 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, JULIANA R 919.4 INSECT BITE NONVENOMOUS OF OTHER MULTIPLE AND UNSPECIFIED SITES WITHOUT INFECTION 11/05/2012 ROSALIE CULP PHD 780.52 INSOMNIA UNSPECIFIED 11/05/2012 ROSALIE CULP PHD 919.4 INSECT BITE NONVENOMOUS OF OTHER MULTIPLE AND UNSPECIFIED SITES WITHOUT INFECTION 11/05/2012 FARNAZ 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, BALJIT S 780.52 INSOMNIA UNSPECIFIED 11/05/2012 FARNAZ 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, BALJIT S 919.4 INSECT BITE NONVENOMOUS OF OTHER MULTIPLE AND UNSPECIFIED SITES WITHOUT INFECTION 11/05/2012 FARNAZ 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, BALJIT S 780.52 INSOMNIA UNSPECIFIED 11/05/2012 FARNAZ 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, BALJIT S 919.4 INSECT BITE NONVENOMOUS OF OTHER MULTIPLE AND UNSPECIFIED SITES WITHOUT INFECTION 11/05/2012 FARNAZ 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, BALJIT S 780.52 INSOMNIA UNSPECIFIED 11/05/2012 FARNAZ 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, BALJIT S 919.4 INSECT BITE NONVENOMOUS OF OTHER MULTIPLE AND UNSPECIFIED SITES WITHOUT INFECTION 11/05/2012 LUC 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, TEE J 780.52 INSOMNIA UNSPECIFIED 11/05/2012 LUC 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, TEE J 919.4 INSECT BITE NONVENOMOUS OF OTHER MULTIPLE AND UNSPECIFIED SITES WITHOUT INFECTION 11/05/2012 LUC 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, TEE J 780.52 INSOMNIA UNSPECIFIED 11/05/2012 LUC 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, TEE J 919.4 INSECT BITE NONVENOMOUS OF OTHER MULTIPLE AND UNSPECIFIED SITES WITHOUT INFECTION 11/05/2012 LUC 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, TEE J 780.52 INSOMNIA UNSPECIFIED 11/05/2012 LUC 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, TEE J 919.4 INSECT BITE NONVENOMOUS OF OTHER MULTIPLE AND UNSPECIFIED SITES WITHOUT INFECTION 11/05/2012 FARNAZ 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, BALJIT S 780.52 INSOMNIA UNSPECIFIED 11/05/2012 FARNAZ 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, BALJIT S 919.4 INSECT BITE NONVENOMOUS OF OTHER MULTIPLE AND UNSPECIFIED SITES WITHOUT INFECTION 11/05/2012 FARNAZ 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, BALJIT S 780.52 INSOMNIA UNSPECIFIED 11/05/2012 FARNAZ 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, BALJIT S 919.4 INSECT BITE NONVENOMOUS OF OTHER MULTIPLE AND UNSPECIFIED SITES WITHOUT INFECTION 11/05/2012 [facility], PATRICE R 780.52 INSOMNIA UNSPECIFIED 11/05/2012 [facility], PATRICE R 919.4 INSECT BITE NONVENOMOUS OF OTHER MULTIPLE AND UNSPECIFIED SITES WITHOUT INFECTION 11/05/2012 LUC 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, TEE J 780.52 INSOMNIA UNSPECIFIED 11/05/2012 LUC 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, TEE J 919.4 INSECT BITE NONVENOMOUS OF OTHER MULTIPLE AND UNSPECIFIED SITES WITHOUT INFECTION 11/05/2012 JESUS PINO DDS 780.52 INSOMNIA UNSPECIFIED 11/05/2012 JESUS PINO DDS 919.4 INSECT BITE NONVENOMOUS OF OTHER MULTIPLE AND UNSPECIFIED SITES WITHOUT INFECTION 11/05/2012 LUC 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, TEE J 780.52 INSOMNIA UNSPECIFIED 11/05/2012 LUC 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, TEE J 919.4 INSECT BITE NONVENOMOUS OF OTHER MULTIPLE AND UNSPECIFIED SITES WITHOUT INFECTION 11/05/2012 FARNAZ 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, BALJIT S 780.52 INSOMNIA UNSPECIFIED 11/05/2012 FARNAZ 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, BALJIT S 919.4 INSECT BITE NONVENOMOUS OF OTHER MULTIPLE AND UNSPECIFIED SITES WITHOUT INFECTION 11/05/2012 FARNAZ 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, BALJIT S 780.52 INSOMNIA UNSPECIFIED 11/05/2012 FARNAZ 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, BALJIT S 919.4 INSECT BITE NONVENOMOUS OF OTHER MULTIPLE AND UNSPECIFIED SITES WITHOUT INFECTION 11/05/2012 BALDERAS DO, NOAH K 780.52 INSOMNIA UNSPECIFIED 11/05/2012 BALDERAS DO, NOAH K 919.4 INSECT BITE NONVENOMOUS OF OTHER MULTIPLE AND UNSPECIFIED SITES WITHOUT INFECTION 11/05/2012 LUC PAZN, TEE J 780.52 INSOMNIA UNSPECIFIED 11/05/2012 LUC 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, TEE J 919.4 INSECT BITE NONVENOMOUS OF OTHER MULTIPLE AND UNSPECIFIED SITES WITHOUT INFECTION 11/19/2012 054.9 HERPES SIMPLEX ANY SITE 11/19/2012 BALDERAS DO, NOAH K 054.9 HERPES SIMPLEX ANY SITE 11/19/2012 054.9 HERPES SIMPLEX ANY SITE 11/19/2012 WHITE DDS, SUNSHINE D 054.9 HERPES SIMPLEX ANY SITE 11/19/2012 BALDERAS DO, NOAH K 054.9 HERPES SIMPLEX ANY SITE 11/19/2012 SANDRA DDS, SUNSHINE D 054.9 HERPES SIMPLEX ANY SITE 11/19/2012 EVELIN 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, JULIANA R 054.9 HERPES SIMPLEX ANY SITE 11/19/2012 FARNAZ 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, BALJIT S 054.9 HERPES SIMPLEX ANY SITE 11/19/2012 MAYRA GIPSON APRN, JENNIFER N 054.9 HERPES SIMPLEX ANY SITE 11/19/2012 FARNAZ 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, BALJIT S 054.9 HERPES SIMPLEX ANY SITE 11/19/2012 EVELIN 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, JULIANA R 054.9 HERPES SIMPLEX ANY SITE 11/19/2012 BALDERAS DO, NOAH K 054.9 HERPES SIMPLEX ANY SITE 11/19/2012 EVELIN 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, JULIANA R 054.9 HERPES SIMPLEX ANY SITE 11/19/2012 SUNI PHD, ROSALIE A 054.9 HERPES SIMPLEX ANY SITE 11/19/2012 FARNAZ 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, BALJIT S 054.9 HERPES SIMPLEX ANY SITE 11/19/2012 FARNAZ 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, BALJIT S 054.9 HERPES SIMPLEX ANY SITE 11/19/2012 FARNAZ 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, BALJIT S 054.9 HERPES SIMPLEX ANY SITE 11/19/2012 LUC 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, TEE J 054.9 HERPES SIMPLEX ANY SITE 11/19/2012 LUC 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, TEE J 054.9 HERPES SIMPLEX ANY SITE 11/19/2012 LUC 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, TEE J 054.9 HERPES SIMPLEX ANY SITE 11/19/2012 FARNAZ 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, BALJIT S 054.9 HERPES SIMPLEX ANY SITE 11/19/2012 FARNAZ 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, BALJIT S 054.9 HERPES SIMPLEX ANY SITE 11/19/2012 [facility], PATRICE Cornelius 054.9 HERPES SIMPLEX ANY SITE 11/19/2012 LUC 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, TEE J 054.9 HERPES SIMPLEX ANY SITE 11/19/2012 ALVAREZ VÁZQUEZS, JESUS 054.9 HERPES SIMPLEX ANY SITE 11/19/2012 LUC 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, TEE J 054.9 HERPES SIMPLEX ANY SITE 11/19/2012 FARNAZ 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, BALJIT S 054.9 HERPES SIMPLEX ANY SITE 11/19/2012 FARNAZ 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, BALJIT S 054.9 HERPES SIMPLEX ANY SITE 11/19/2012 BALDERAS DO, NOAH K 054.9 HERPES SIMPLEX ANY SITE 11/19/2012 LUC 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, TEE J 054.9 HERPES SIMPLEX ANY SITE 11/29/2012 BALDERAS DO, NOAH K 719.40 joint pain, localized 11/29/2012 BALDERAS DO, NOAH K 784.0 headache 11/29/2012 719.40 joint pain, localized 11/29/2012 784.0 headache 11/29/2012 WHITE DDS, SUNSHINE Arnold 719.40 joint pain, localized 11/29/2012 WHITE DDS, SUNSHINE D 784.0 headache 11/29/2012 BALDERAS DO, NOAH K 719.40 joint pain, localized 11/29/2012 BALDERAS DO, NOAH K 784.0 headache 11/29/2012 WHITE DDS, SUNSHINE D 719.40 joint pain, localized 11/29/2012 WHITE DDS, SUNSHINE D 784.0 headache 11/29/2012 EVELIN 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, JULIANA R 719.40 joint pain, localized 11/29/2012 EVELIN 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, JULIANA R 784.0 headache 11/29/2012 FARNAZ 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, BALJIT S 719.40 joint pain, localized 11/29/2012 FARNAZ 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, BALJIT S 784.0 headache 11/29/2012 NUNEZ CASHERO 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, JENNIFER N 719.40 joint pain, localized 11/29/2012 NUNEZ CASHERO 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, JENNIFER N 784.0 headache 11/29/2012 FARNAZ 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, BALJIT S 719.40 JOINT PAIN, LOCALIZED 11/29/2012 FARNAZ 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, BALJIT S 784.0 HEADACHE 11/29/2012 EVELIN 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, JULIANA R 719.40 JOINT PAIN, LOCALIZED 11/29/2012 EVELIN 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, JULIANA R 784.0 HEADACHE 11/29/2012 BALDERAS DO, NOAH K 719.40 JOINT PAIN, LOCALIZED 11/29/2012 BALDERAS DO, NOAH K 784.0 HEADACHE 11/29/2012 EVELIN 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, JULIANA R 719.40 JOINT PAIN, LOCALIZED 11/29/2012 EVELIN 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, JULIANA R 784.0 HEADACHE 11/29/2012 SUNI PHD, ROSALIE A 719.40 JOINT PAIN, LOCALIZED 11/29/2012 SUNI PHD, ROSALIE A 784.0 HEADACHE 11/29/2012 FARNAZ 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, BALJIT S 719.40 JOINT PAIN, LOCALIZED 11/29/2012 FARNAZ 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, BALJIT S 784.0 HEADACHE 11/29/2012 FARNAZ 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, BALJIT S 719.40 JOINT PAIN, LOCALIZED 11/29/2012 FARNAZ 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, BALJIT S 784.0 HEADACHE 11/29/2012 FARNAZ 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, BALJIT S 719.40 JOINT PAIN, LOCALIZED 11/29/2012 FARNAZ 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, BALJIT S 784.0 HEADACHE 11/29/2012 TEE CALLE APRN 719.40 JOINT PAIN, LOCALIZED 11/29/2012 LUC 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, TEE J 784.0 HEADACHE 11/29/2012 LUC 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, TEE J 719.40 JOINT PAIN, LOCALIZED 11/29/2012 LUC 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, TEE J 784.0 HEADACHE 11/29/2012 LCU 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, TEE J 719.40 JOINT PAIN, LOCALIZED 11/29/2012 LUC 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, TEE J 784.0 HEADACHE 11/29/2012 FARNAZ OLMOS, BALJIT S 719.40 JOINT PAIN, LOCALIZED 11/29/2012 FARNAZ PAZN, BALJIT S 784.0 HEADACHE 11/29/2012 FARNAZ PAZN, BALJIT S 719.40 JOINT PAIN, LOCALIZED 11/29/2012 FARNAZ OLMOS, BALJIT S 784.0 HEADACHE 11/29/2012 [facility], PATRICE R 719.40 JOINT PAIN, LOCALIZED 11/29/2012 [facility], PATRICE R 784.0 HEADACHE 11/29/2012 LUC PAZN, TEE J 719.40 JOINT PAIN, LOCALIZED 11/29/2012 LUC 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, TEE J 784.0 HEADACHE 11/29/2012 PINO DDS, JESUS 719.40 JOINT PAIN, LOCALIZED 11/29/2012 PINO DDS, JESUS 784.0 HEADACHE 11/29/2012 LUC OLMOS, TEE J 719.40 JOINT PAIN, LOCALIZED 11/29/2012 LUC 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, TEE J 784.0 HEADACHE 11/29/2012 FARNAZ OLMOS, BALJIT S 719.40 JOINT PAIN, LOCALIZED 11/29/2012 FARNAZ OLMOS, BALJIT S 784.0 HEADACHE 11/29/2012 FARNAZ PAZN, BALJIT S 719.40 JOINT PAIN, LOCALIZED 11/29/2012 FARNAZCHITO OLMOS, BALJIT S 784.0 HEADACHE 11/29/2012 BALDERAS DO, NOAH K 719.40 JOINT PAIN, LOCALIZED 11/29/2012 BALDERAS DO, NOAH K 784.0 HEADACHE 11/29/2012 LUC 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, TEE J 719.40 JOINT PAIN, LOCALIZED 11/29/2012 LUC 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, TEE J 784.0 HEADACHE 01/23/2013 719.43 joint pain in both wrists 01/23/2013 WHITE DDS, SUNSHINE D 719.43 joint pain in both wrists 01/23/2013 BALDERAS DO, NOAH K 719.43 joint pain in both wrists 01/23/2013 WHITE DDS, SUNSHINE D 719.43 joint pain in both wrists 01/23/2013 EVELIN PAZN, JULIANA R 719.43 joint pain in both wrists 01/23/2013 FARNAZ PAZN, BALJIT S 719.43 joint pain in both wrists 01/23/2013 JENNIFER RIGGS APRN N 719.43 joint pain in both wrists 01/23/2013 FARNAZCHITO PAZN, BALJIT S 719.43 JOINT PAIN IN BOTH WRISTS 01/23/2013 EVELIN OLMOS JULIANA R 719.43 JOINT PAIN IN BOTH WRISTS 01/23/2013 BALDERAS DO, NOAH K 719.43 JOINT PAIN IN BOTH WRISTS 01/23/2013 EVELIN PAZN JULIANA R 719.43 JOINT PAIN IN BOTH WRISTS 01/23/2013 SUNI ZAMORA, ROSALIE Loo 719.43 JOINT PAIN IN BOTH WRISTS 01/23/2013 FARNAZ 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, BALJIT S 719.43 JOINT PAIN IN BOTH WRISTS 01/23/2013 FARNAZ PAZN, BALJIT S 719.43 JOINT PAIN IN BOTH WRISTS 01/23/2013 FARNAZ 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, BALJIT S 719.43 JOINT PAIN IN BOTH WRISTS 01/23/2013 KRUNAL CALLE APRNA J 719.43 JOINT PAIN IN BOTH WRISTS 01/23/2013 LUC 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, TEE J 719.43 JOINT PAIN IN BOTH WRISTS 01/23/2013 LUC 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, TEE J 719.43 JOINT PAIN IN BOTH WRISTS 01/23/2013 FARNAZCHITO PAZN, BALJIT S 719.43 JOINT PAIN IN BOTH WRISTS 01/23/2013 FARNAZ 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, BALJIT S 719.43 JOINT PAIN IN BOTH WRISTS 01/23/2013 [facility], PATRICE R 719.43 JOINT PAIN IN BOTH WRISTS 01/23/2013 KRUNAL CALLE APRNA J 719.43 JOINT PAIN IN BOTH WRISTS 01/23/2013 IPNO DDS, JESUS 719.43 JOINT PAIN IN BOTH WRISTS 01/23/2013 TEE CALLE APRN 719.43 JOINT PAIN IN BOTH WRISTS 01/23/2013 FARNAZ 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, BALJIT S 719.43 JOINT PAIN IN BOTH WRISTS 01/23/2013 FARNAZ 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, BALJIT S 719.43 JOINT PAIN IN BOTH WRISTS 01/23/2013 BALDERAS DO, NOAH K 719.43 JOINT PAIN IN BOTH WRISTS 01/23/2013 LUC OLMOS, TEE Wilkins 719.43 JOINT PAIN IN BOTH WRISTS 03/17/2013 WHITE DDS, SUNSHINE D 216.9 MOLE/NEVUS - SITE UNSPECIFIED 03/17/2013 BALDERAS DO, NOAH K 216.9 MOLE/NEVUS - SITE UNSPECIFIED 03/17/2013 WHITE DDS, SUNSHINE D 216.9 MOLE/NEVUS - SITE UNSPECIFIED 03/17/2013 EVELIN OLMOS, JULIANA R 216.9 MOLE/NEVUS - SITE UNSPECIFIED 03/17/2013 FARNAZ OLMOS, BALJIT S 216.9 MOLE/NEVUS - SITE UNSPECIFIED 03/17/2013 JENNIFER RIGGS APRN N 216.9 MOLE/NEVUS - SITE UNSPECIFIED 03/17/2013 FARNAZ OLMOS, BALJIT S 216.9 MOLE/NEVUS - SITE UNSPECIFIED 03/17/2013 WILL WATERS APRNINA R 216.9 MOLE/NEVUS - SITE UNSPECIFIED 03/17/2013 BALDERAS DONOAH K 216.9 MOLE/NEVUS - SITE UNSPECIFIED 03/17/2013 EVELIN OLMOS JULIANA R 216.9 MOLE/NEVUS - SITE UNSPECIFIED 03/17/2013 SUNI PHD, ROSALIE A 216.9 MOLE/NEVUS - SITE UNSPECIFIED 03/17/2013 FARNAZ PAZN, BALJIT S 216.9 MOLE/NEVUS - SITE UNSPECIFIED 03/17/2013 FARNAZ PAZN, BALJIT S 216.9 MOLE/NEVUS - SITE UNSPECIFIED 03/17/2013 FARNAZ PAZN, BALJIT S 216.9 MOLE/NEVUS - SITE UNSPECIFIED 03/17/2013 TEE CALLE APRN 216.9 MOLE/NEVUS - SITE UNSPECIFIED 03/17/2013 LUC 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, TEE J 216.9 MOLE/NEVUS - SITE UNSPECIFIED 03/17/2013 LUC 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, TEE J 216.9 MOLE/NEVUS - SITE UNSPECIFIED 03/17/2013 FARNAZ 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, BALJIT S 216.9 MOLE/NEVUS - SITE UNSPECIFIED 03/17/2013 FARNAZ 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, BALJIT S 216.9 MOLE/NEVUS - SITE UNSPECIFIED 03/17/2013 [facility], PATRICE R 216.9 MOLE/NEVUS - SITE UNSPECIFIED 03/17/2013 LUC PAZN, TEE J 216.9 MOLE/NEVUS - SITE UNSPECIFIED 03/17/2013 ALVAREZ VÁZQUEZS, JESUS 216.9 MOLE/NEVUS - SITE UNSPECIFIED 03/17/2013 LUC 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, TEE J 216.9 MOLE/NEVUS - SITE UNSPECIFIED 03/17/2013 FARNAZ OLMOS, BALJIT S 216.9 MOLE/NEVUS - SITE UNSPECIFIED 03/17/2013 FARNAZ OLMOS, BALJIT S 216.9 MOLE/NEVUS - SITE UNSPECIFIED 03/17/2013 BALDERAS DO, NOAH K 216.9 MOLE/NEVUS - SITE UNSPECIFIED 03/17/2013 LUC PAZN, TEE J 216.9 MOLE/NEVUS - SITE UNSPECIFIED 07/09/2013 BALDERAS DO, NOAH K 786.2 COUGH 07/09/2013 BALDERAS DO, NOAH K V04.81 FLU SHOT 07/09/2013 WHITE DDS, SUNSHINE D 786.2 COUGH 07/09/2013 WHITE DDS, SUNSHINE D V04.81 FLU SHOT 07/09/2013 EVELIN 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, JULIANA R 786.2 COUGH 07/09/2013 EVELIN 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, JULIANA R V04.81 FLU SHOT 07/09/2013 FARNAZ OLMOS BALJIT S 786.2 COUGH 07/09/2013 PRAVEENA OSEI APRNNDA S V04.81 FLU SHOT 07/09/2013 NUNEZ CASHERO 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, JENNIFER N 786.2 COUGH 07/09/2013 NUNEZ CASHERO 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, JENNIFER N V04.81 FLU SHOT 07/09/2013 PRAVEENA OSEI APRNNDA S 786.2 COUGH 07/09/2013 FARNAZ 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, BALJIT S V04.81 FLU SHOT 07/09/2013 EVELIN 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, JULIANA R 786.2 COUGH 07/09/2013 EVELIN 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, JULIANA R V04.81 FLU SHOT 07/09/2013 BALDERAS DO, NOAH K 786.2 COUGH 07/09/2013 BALDERAS DO, NOAH K V04.81 FLU SHOT 07/09/2013 EVELIN 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, JULIANA R 786.2 COUGH 07/09/2013 EVELIN 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, JULIANA R V04.81 FLU SHOT 07/09/2013 SUNI PHD, ROSALIE A 786.2 COUGH 07/09/2013 SUNI PHD, ROSALIE A V04.81 FLU SHOT 07/09/2013 FARNAZ 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, BALJIT S 786.2 COUGH 07/09/2013 FARNAZ 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, BALJIT S V04.81 FLU SHOT 07/09/2013 FARNAZ 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, BALJIT S 786.2 COUGH 07/09/2013 FARNAZ PAZN, BALJIT S V04.81 FLU SHOT 07/09/2013 FARNAZ 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, BALJIT S 786.2 COUGH 07/09/2013 FARNAZ 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, BALJIT S V04.81 FLU SHOT 07/09/2013 LUC 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, TEE J 786.2 COUGH 07/09/2013 LUC 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, TEE J V04.81 FLU SHOT 07/09/2013 LUC 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, TEE J 786.2 COUGH 07/09/2013 LUC 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, TEE J V04.81 FLU SHOT 07/09/2013 LUC 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, TEE J 786.2 COUGH 07/09/2013 LUC 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, TEE J V04.81 FLU SHOT 07/09/2013 FARNAZ 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, BALJIT S 786.2 COUGH 07/09/2013 FARNAZ 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, BALJIT S V04.81 FLU SHOT 07/09/2013 FARNAZ 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, BALJIT S 786.2 COUGH 07/09/2013 FARNAZ 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, BALJIT S V04.81 FLU SHOT 07/09/2013 [facility], PATRICE R 786.2 COUGH 07/09/2013 [facility], PATRICE R V04.81 FLU SHOT 07/09/2013 LUC 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, TEE J 786.2 COUGH 07/09/2013 LUC 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, TEE J V04.81 FLU SHOT 07/09/2013 PINO DDS, JESUS 786.2 COUGH 07/09/2013 PINO DDS, JESUS V04.81 FLU SHOT 07/09/2013 LUC 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, TEE J 786.2 COUGH 07/09/2013 LUC 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, TEE J V04.81 FLU SHOT 07/09/2013 FARNAZ 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, BALJIT S 786.2 COUGH 07/09/2013 FARNAZ 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, BALJIT S V04.81 FLU SHOT 07/09/2013 FARNAZ 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, BALJIT S 786.2 COUGH 07/09/2013 FARNAZ SPINNING AND WINDING SUPERVISOR, BALJIT S V04.81 FLU SHOT 07/09/2013 BALDERAS DO, NOAH K 786.2 COUGH 07/09/2013 BALDERAS DO, NOAH K V04.81 FLU SHOT 07/09/2013 LUC SP[employer]NING AND WINDING SUPERVISOR, TEE J 786.2 COUGH 07/09/2013 LUC SPINNING AND WINDING SUPERVISOR, TEE J V04.81 FLU SHOT 10/13/2013 CRISITANE OSEI APRNA S 692.9 CONTACT DERMATITIS AND OTHER ECZEMA UNSPECIFIED CAUSE 10/13/2013 JENNIFER RIGGS APRN N 692.9 CONTACT DERMATITIS AND OTHER ECZEMA UNSPECIFIED CAUSE 10/13/2013 CRISTIANE OSEI APRNA S 692.9 CONTACT DERMATITIS AND OTHER ECZEMA UNSPECIFIED CAUSE 10/13/2013 WILL WATERS APRNINA R 692.9 CONTACT DERMATITIS AND OTHER ECZEMA UNSPECIFIED CAUSE 10/13/2013 BALDERAS DO, NOAH K 692.9 CONTACT DERMATITIS AND OTHER ECZEMA UNSPECIFIED CAUSE 10/13/2013 EVELIN PAZN, JULIANA R 692.9 CONTACT DERMATITIS AND OTHER ECZEMA UNSPECIFIED CAUSE 10/13/2013 SUNI ZAMORA, ROSALIE A 692.9 CONTACT DERMATITIS AND OTHER ECZEMA UNSPECIFIED CAUSE 10/13/2013 CRISTIANE OSEI APRNA S 692.9 CONTACT DERMATITIS AND OTHER ECZEMA UNSPECIFIED CAUSE 10/13/2013 CRISTIANE OSEI APRNA S 692.9 CONTACT DERMATITIS AND OTHER ECZEMA UNSPECIFIED CAUSE 10/13/2013 CRISTIANE OSEI APRNA S 692.9 CONTACT DERMATITIS AND OTHER ECZEMA UNSPECIFIED CAUSE 10/13/2013 LUC OLMOS, TEE J 692.9 CONTACT DERMATITIS AND OTHER ECZEMA UNSPECIFIED CAUSE 10/13/2013 LUC OLMOS, TEE J 692.9 CONTACT DERMATITIS AND OTHER ECZEMA UNSPECIFIED CAUSE 10/13/2013 LUC PAZN, TEE J 692.9 CONTACT DERMATITIS AND OTHER ECZEMA UNSPECIFIED CAUSE 10/13/2013 CRISTIANE OSEI APRNA S 692.9 CONTACT DERMATITIS AND OTHER ECZEMA UNSPECIFIED CAUSE 10/13/2013 FARNAZ PAZN, BALJIT S 692.9 CONTACT DERMATITIS AND OTHER ECZEMA UNSPECIFIED CAUSE 10/13/2013 [facility], PATRICE R 692.9 CONTACT DERMATITIS AND OTHER ECZEMA UNSPECIFIED CAUSE 10/13/2013 LUC OLMOS, TEE J 692.9 CONTACT DERMATITIS AND OTHER ECZEMA UNSPECIFIED CAUSE 10/13/2013 ALVAREZ SJESUS 692.9 CONTACT DERMATITIS AND OTHER ECZEMA UNSPECIFIED CAUSE 10/13/2013 LUC OLMOS, TEE J 692.9 CONTACT DERMATITIS AND OTHER ECZEMA UNSPECIFIED CAUSE 10/13/2013 FARNAZ OLMOS, BALJIT S 692.9 CONTACT DERMATITIS AND OTHER ECZEMA UNSPECIFIED CAUSE 10/13/2013 FARNAZ OLMOS, BALJIT S 692.9 CONTACT DERMATITIS AND OTHER ECZEMA UNSPECIFIED CAUSE 10/13/2013 BALDERAS DO, NOAH K 692.9 CONTACT DERMATITIS AND OTHER ECZEMA UNSPECIFIED CAUSE 10/13/2013 LUC OLMOS, TEE J 692.9 CONTACT DERMATITIS AND OTHER ECZEMA UNSPECIFIED CAUSE 12/18/2013 EVELIN PAZN, JULIANA R 784.0 HEADACHE 12/18/2013 BALDERAS DOPARESHA K 784.0 HEADACHE 12/18/2013 EVELIN PAZN, JULIANA R 784.0 HEADACHE 12/18/2013 ROSALIE CULP PHD 784.0 HEADACHE 12/18/2013 FARNAZ PAZN, BALJIT S 784.0 HEADACHE 12/18/2013 FARNAZ PAZN, BALJIT S 784.0 HEADACHE 12/18/2013 PRAVEENA OSEI APRNNDA S 784.0 HEADACHE 12/18/2013 KRUNAL CALLE APRNA J 784.0 HEADACHE 12/18/2013 LUC PAZN, TEE J 784.0 HEADACHE 12/18/2013 LUC [employer], TEE J 784.0 HEADACHE 12/18/2013 FARNAZ [employer], BALJIT S 784.0 HEADACHE 12/18/2013 FARNAZ [employer], BALJIT S 784.0 HEADACHE 12/18/2013 [facility], PATRICE R 784.0 HEADACHE 12/18/2013 [employer], TEE J 784.0 HEADACHE 12/18/2013 PINO DDS, JESUS 784.0 HEADACHE 12/18/2013 [employer], TEE J 784.0 HEADACHE 12/18/2013 FARNAZ [employer], BALJIT S 784.0 HEADACHE 12/18/2013 FARNAZ [employer], BALJIT S 784.0 HEADACHE 12/18/2013 BALDERAS NOAH CALLES 784.0 HEADACHE 12/18/2013 [employer], TEE J 784.0 HEADACHE 01/29/2014 EVELIN OLMOS, JULIANA R 462 ACUTE PHARYNGITIS 01/29/2014 EVELIN PAZN, JULIANA R 729.1 MYALGIA AND MYOSITIS UNSPECIFIED 01/29/2014 SUNI PHD, ROSALIE A 462 ACUTE PHARYNGITIS 01/29/2014 SUNI PHD, ROSALIE A 729.1 MYALGIA AND MYOSITIS UNSPECIFIED 01/29/2014 FARNAZ PAZN, BALJIT S 462 ACUTE PHARYNGITIS 01/29/2014 FARNAZ PAZN, BALJIT S 729.1 MYALGIA AND MYOSITIS UNSPECIFIED 01/29/2014 FARNAZ PAZN, BALJIT S 462 ACUTE PHARYNGITIS 01/29/2014 FARNAZ [employer]PER[employer], BALJIT S 729.1 MYALGIA AND MYOSITIS UNSPECIFIED 01/29/2014 FARNAZ [employer]PER[employer]OR, BALJIT S 462 ACUTE PHARYNGITIS 01/29/2014 FARNAZ [employer] SUPER[employer]OR, BALJIT S 729.1 MYALGIA AND MYOSITIS UNSPECIFIED 01/29/2014 LUC [employer], TEE J 462 ACUTE PHARYNGITIS 01/29/2014 LUC PAZN, TEE J 729.1 MYALGIA AND MYOSITIS UNSPECIFIED 01/29/2014 LUC [employer], TEE J 462 ACUTE PHARYNGITIS 01/29/2014 LUC OLMOS, TEE J 729.1 MYALGIA AND MYOSITIS UNSPECIFIED 01/29/2014 LUC OLMOS, TEE J 462 ACUTE PHARYNGITIS 01/29/2014 LUC OLMOS, TEE J 729.1 MYALGIA AND MYOSITIS UNSPECIFIED 01/29/2014 PRAVEENA OSEI APRNNDA S 462 ACUTE PHARYNGITIS 01/29/2014 PRAVEENA OSEI APRNNDA S 729.1 MYALGIA AND MYOSITIS UNSPECIFIED 01/29/2014 PRAVEENA OSEI APRNNDA S 462 ACUTE PHARYNGITIS 01/29/2014 CRISTIANE OSEI APRNA S 729.1 MYALGIA AND MYOSITIS UNSPECIFIED 01/29/2014 [facility], PATRICE R 462 ACUTE PHARYNGITIS 01/29/2014 [facility], PATRICE R 729.1 MYALGIA AND MYOSITIS UNSPECIFIED 01/29/2014 KRUNAL CALLE APRNA J 462 ACUTE PHARYNGITIS 01/29/2014 KRUNAL CALLE APRNA J 729.1 MYALGIA AND MYOSITIS UNSPECIFIED 01/29/2014 JESUS PINO DDS 462 ACUTE PHARYNGITIS 01/29/2014 ALVAREZ VÁZQUEZS, JESUS 729.1 MYALGIA AND MYOSITIS UNSPECIFIED 01/29/2014 LUC OLMOS, TEE J 462 ACUTE PHARYNGITIS 01/29/2014 KRUNAL CALLE APRNA J 729.1 MYALGIA AND MYOSITIS UNSPECIFIED 01/29/2014 PRAVEENA OSEI APRNNDA S 462 ACUTE PHARYNGITIS 01/29/2014 PRAVEENA OSEI APRNNDA S 729.1 MYALGIA AND MYOSITIS UNSPECIFIED 01/29/2014 PRAVEENA OSEI APRNNDA S 462 ACUTE PHARYNGITIS 01/29/2014 PRAVEENA OSEI APRNNDA S 729.1 MYALGIA AND MYOSITIS UNSPECIFIED 01/29/2014 BALDERAS DOPARESHA K 462 ACUTE PHARYNGITIS 01/29/2014 BALDERAS PARESH CALLESA K 729.1 MYALGIA AND MYOSITIS UNSPECIFIED 01/29/2014 TEE CALLE APRN J 462 ACUTE PHARYNGITIS 01/29/2014 TEE CALLE APRN 729.1 MYALGIA AND MYOSITIS UNSPECIFIED 03/11/2014 SUNI ZAMORA, ROSALIE A 300.02 AN GEN ANXIETY 03/11/2014 SUNI ZAMORA, ROSALIE A 300.4 MO DYSTHYMIC DISORDER 03/11/2014 CRISTIANE OSEI APRNA S 300.02 AN GEN ANXIETY 03/11/2014 CRISTIANE OSEI APRNA S 300.4 MO DYSTHYMIC DISORDER 03/11/2014 CRISTIANE OSEI APRNA S 300.02 AN GEN ANXIETY 03/11/2014 CRISTIANE OSEI APRNA S 300.4 MO DYSTHYMIC DISORDER 03/11/2014 CRISTIANE OSEI APRNA S 300.02 AN GEN ANXIETY 03/11/2014 BALJIT OSEI APRN S 300.4 MO DYSTHYMIC DISORDER 03/11/2014 KRUNAL CALLE APRNA J 300.02 AN GEN ANXIETY 03/11/2014 KRUNAL CALLE APRNA J 300.4 MO DYSTHYMIC DISORDER 03/11/2014 KRUNAL CALLE APRNA J 300.02 AN GEN ANXIETY 03/11/2014 KRUNAL CALLE APRNA J 300.4 MO DYSTHYMIC DISORDER 03/11/2014 KRUNAL CALLE APRNA J 300.02 AN GEN ANXIETY 03/11/2014 RKUNAL CALLE APRNA J 300.4 MO DYSTHYMIC DISORDER 03/11/2014 CRISTIANE OSEI APRNA S 300.02 AN GEN ANXIETY 03/11/2014 CRISTIANE OSEI APRNA S 300.4 MO DYSTHYMIC DISORDER 03/11/2014 CRISTIANE OSEI APRNA S 300.02 AN GEN ANXIETY 03/11/2014 CRISTIANE OSEI APRNA S 300.4 MO DYSTHYMIC DISORDER 03/11/2014 [facility], PATRICE R 300.02 AN GEN ANXIETY 03/11/2014 [facility], PATRICE R 300.4 MO DYSTHYMIC DISORDER 03/11/2014 KRUNAL CALLE APRNA J 300.02 AN GEN ANXIETY 03/11/2014 TEE CALLE APRN J 300.4 MO DYSTHYMIC DISORDER 03/11/2014 PINO DDS, JESUS 300.02 AN GEN ANXIETY 03/11/2014 PINO DDS, JESUS 300.4 MO DYSTHYMIC DISORDER 03/11/2014 KRUNAL CALLE APRNA J 300.02 AN GEN ANXIETY 03/11/2014 KRUNAL CALLE APRNA J 300.4 MO DYSTHYMIC DISORDER 03/11/2014 CRISTIANE OSEI APRNA S 300.02 AN GEN ANXIETY 03/11/2014 CRISTIANE OSEI APRNA S 300.4 MO DYSTHYMIC DISORDER 03/11/2014 CRISTIANE OSEI APRNA S 300.02 AN GEN ANXIETY 03/11/2014 BALJIT OSEI APRN S 300.4 MO DYSTHYMIC DISORDER 03/11/2014 BALDERAS DO, NOAH K 300.02 AN GEN ANXIETY 03/11/2014 BALDERAS DO, NOAH K 300.4 MO DYSTHYMIC DISORDER 03/11/2014 TEE CALLE APRN J 300.02 AN GEN ANXIETY 03/11/2014 KRUNAL CALLE APRNA J 300.4 MO DYSTHYMIC DISORDER 03/12/2014 CRISTIANE OSEI APRNA S 682.2 CELLULITIS AND ABSCESS OF TRUNK 03/12/2014 CRISTIANE OSEI APRNA S V06.1 TDAP DX 03/12/2014 CRISTIANE OSEI APRNA S 682.2 CELLULITIS AND ABSCESS OF TRUNK 03/12/2014 CRISTIANE OSEI APRNA S V06.1 TDAP DX 03/12/2014 CRISTIANE OSEI APRNA S 682.2 CELLULITIS AND ABSCESS OF TRUNK 03/12/2014 CRISTIANE OSEI APRNA S V06.1 TDAP DX 03/12/2014 KRUNAL CALLE APRNA J 682.2 CELLULITIS AND ABSCESS OF TRUNK 03/12/2014 KRUNAL CALLE APRNA J V06.1 TDAP DX 03/12/2014 KRUNAL CALLE APRNA J 682.2 CELLULITIS AND ABSCESS OF TRUNK 03/12/2014 KRUNAL CALLE APRNA J V06.1 TDAP DX 03/12/2014 KRUNAL CALLE APRNA J 682.2 CELLULITIS AND ABSCESS OF TRUNK 03/12/2014 KRUNAL CALLE APRNA J V06.1 TDAP DX 03/12/2014 BALJIT OSEI APRN S 682.2 CELLULITIS AND ABSCESS OF TRUNK 03/12/2014 BALJIT OSEI APRN S V06.1 TDAP DX 03/12/2014 CRISTIANE OSEI APRNA S 682.2 CELLULITIS AND ABSCESS OF TRUNK 03/12/2014 BALJIT OSEI APRN S V06.1 TDAP DX 03/12/2014 [facility], PATRICE R 682.2 CELLULITIS AND ABSCESS OF TRUNK 03/12/2014 [facility], PATRICE R V06.1 TDAP DX 03/12/2014 TEE CALLE APRN 682.2 CELLULITIS AND ABSCESS OF TRUNK 03/12/2014 TEE CALLE APRN J V06.1 TDAP DX 03/12/2014 PINO DDS, JESUS 682.2 CELLULITIS AND ABSCESS OF TRUNK 03/12/2014 PINO DDS, JESUS V06.1 TDAP DX 03/12/2014 KRUNAL CALLE APRNA J 682.2 CELLULITIS AND ABSCESS OF TRUNK 03/12/2014 TEE CALLE APRN J V06.1 TDAP DX 03/12/2014 BALJIT OSEI APRN S 682.2 CELLULITIS AND ABSCESS OF TRUNK 03/12/2014 CRISTIANE OSEI APRNA S V06.1 TDAP DX 03/12/2014 BALJIT OSEI APRN S 682.2 CELLULITIS AND ABSCESS OF TRUNK 03/12/2014 CRISTIANE OSEI APRNA S V06.1 TDAP DX 03/12/2014 BALDERAS DO, NOAH K 682.2 CELLULITIS AND ABSCESS OF TRUNK 03/12/2014 BALDERAS DO, NOAH K V06.1 TDAP DX 03/12/2014 LUC OLMOS TEE J 682.2 CELLULITIS AND ABSCESS OF TRUNK 03/12/2014 LUC OLMOS TEE J V06.1 TDAP DX 03/16/2014 BALJIT OSEI APRN S E905.1 VENOMOUS SPIDERS CAUSING POISONING AND TOXIC REACTIONS 03/16/2014 BALJIT OSEI APRN S E905.1 VENOMOUS SPIDERS CAUSING POISONING AND TOXIC REACTIONS 03/16/2014 BALJIT OSEI APRN S E905.1 VENOMOUS SPIDERS CAUSING POISONING AND TOXIC REACTIONS 03/16/2014 TEE CALLE APRN J E905.1 VENOMOUS SPIDERS CAUSING POISONING AND TOXIC REACTIONS 03/16/2014 TEE CALLE APRN J E905.1 VENOMOUS SPIDERS CAUSING POISONING AND TOXIC REACTIONS 03/16/2014 TEE CALLE APRN J E905.1 VENOMOUS SPIDERS CAUSING POISONING AND TOXIC REACTIONS 03/16/2014 BALJIT OSEI APRN S E905.1 VENOMOUS SPIDERS CAUSING POISONING AND TOXIC REACTIONS 03/16/2014 BALJIT OSEI APRN S E905.1 VENOMOUS SPIDERS CAUSING POISONING AND TOXIC REACTIONS 03/16/2014 ANNABEL GENARO, PATRICE Cornelius E905.1 VENOMOUS SPIDERS CAUSING POISONING AND TOXIC REACTIONS 03/16/2014 TEE CALLE APRN J E905.1 VENOMOUS SPIDERS CAUSING POISONING AND TOXIC REACTIONS 03/16/2014 JESUS PINO DDS E905.1 VENOMOUS SPIDERS CAUSING POISONING AND TOXIC REACTIONS 03/16/2014 TEE CALLE APRN J E905.1 VENOMOUS SPIDERS CAUSING POISONING AND TOXIC REACTIONS 03/16/2014 BALJIT OSEI APRN S E905.1 VENOMOUS SPIDERS CAUSING POISONING AND TOXIC REACTIONS 03/16/2014 BALJIT OSEI APRN S E905.1 VENOMOUS SPIDERS CAUSING POISONING AND TOXIC REACTIONS 03/16/2014 NOAH BALDERAS DO E905.1 VENOMOUS SPIDERS CAUSING POISONING AND TOXIC REACTIONS 03/16/2014 TEE CALLE APRN J E905.1 VENOMOUS SPIDERS CAUSING POISONING AND TOXIC REACTIONS 03/18/2014 BALJIT OSEI APRN S V77.0 THYROID DISORDER SCREENING 03/18/2014 BALJIT OSEI APRN S V77.0 THYROID DISORDER SCREENING 03/18/2014 TEE CALLE APRN V77.0 THYROID DISORDER SCREENING 03/18/2014 TEE CALLE APRN V77.0 THYROID DISORDER SCREENING 03/18/2014 [employer] [employer], TEE J V77.0 THYROID DISORDER SCREENING 03/18/2014 FARNAZ OLMOS BALJIT S V77.0 THYROID DISORDER SCREENING 03/18/2014 PRAVEENA OSEI APRNNDA S V77.0 THYROID DISORDER SCREENING 03/18/2014 [facility], PATRICE R V77.0 THYROID DISORDER SCREENING 03/18/2014 LUC OLMOS, TEE J V77.0 THYROID DISORDER SCREENING 03/18/2014 ALVAREZ LYMANSMITHW V77.0 THYROID DISORDER SCREENING 03/18/2014 LUC OLMOS, TEE J V77.0 THYROID DISORDER SCREENING 03/18/2014 PRAVEENA OSEI APRNNDA S V77.0 THYROID DISORDER SCREENING 03/18/2014 PRAVEENA OSEI APRNNDA S V77.0 THYROID DISORDER SCREENING 03/18/2014 NOAH BALDERAS DO V77.0 THYROID DISORDER SCREENING 03/18/2014 LUC OLMOS, TEE J V77.0 THYROID DISORDER SCREENING 04/23/2014 CRISTIANE OSEI APRNA S 296.89 MO BIPOLAR II 04/23/2014 PRAVEENA OSEI APRNNDA S 309.81 AN PTSD 04/23/2014 PRAVEENA OSEI APRNNDA S 314.00 ADHD INATTENTIVE 04/23/2014 LUC OLMOS, TEE J 296.89 MO BIPOLAR II 04/23/2014 LUC OLMOS, TEE J 309.81 AN PTSD 04/23/2014 LUC OLMOS, TEE J 314.00 ADHD INATTENTIVE 04/23/2014 LUC OLMOS, TEE J 296.89 MO BIPOLAR II 04/23/2014 LUC OLMOS, TEE J 309.81 AN PTSD 04/23/2014 [employer], TEE J 314.00 ADHD INATTENTIVE 04/23/2014 [employer], TEE J 296.89 MO BIPOLAR II 04/23/2014 [employer]PER[employer], TEE J 309.81 AN PTSD 04/23/2014 LUC OLMOS, TEE J 314.00 ADHD INATTENTIVE 04/23/2014 PRAVEENA OSEI APRNNDA S 296.89 MO BIPOLAR II 04/23/2014 PRAVEENA OSEI APRNNDA S 309.81 AN PTSD 04/23/2014 PRAVEENA OSEI APRNNDA S 314.00 ADHD INATTENTIVE 04/23/2014 FARNAZ OLMOS, BALJIT S 296.89 MO BIPOLAR II 04/23/2014 PRAVEENA OSEI APRNNDA S 309.81 AN PTSD 04/23/2014 FARNAZ OLMOS, BALJIT S 314.00 ADHD INATTENTIVE 04/23/2014 [facility] 296.89 MO BIPOLAR II 04/23/2014 [facility], PATRICE R 309.81 AN PTSD 04/23/2014 [facility] R 314.00 ADHD INATTENTIVE 04/23/2014 [employer], TEE J 296.89 MO BIPOLAR II 04/23/2014 [employer]PER[employer], TEE J 309.81 AN PTSD 04/23/2014 [employer], TEE J 314.00 ADHD INATTENTIVE 04/23/2014 ALVAREZ DDS, JESUS 296.89 MO BIPOLAR II 04/23/2014 PINO DDS, JESUS 309.81 AN PTSD 04/23/2014 ALVAREZ DDS, JESUS 314.00 ADHD INATTENTIVE 04/23/2014 LUC PAZN, TEE J 296.89 MO BIPOLAR II 04/23/2014 LUC PAZN, TEE J 309.81 AN PTSD 04/23/2014 LUC PAZN, TEE J 314.00 ADHD INATTENTIVE 04/23/2014 PRAVEENA OSEI APRNNDA S 296.89 MO BIPOLAR II 04/23/2014 FARNAZ OLMOS, BALJIT S 309.81 AN PTSD 04/23/2014 PRAVEENA OSEI APRNNDA S 314.00 ADHD INATTENTIVE 04/23/2014 PRAVEENA OSEI APRNNDA S 296.89 MO BIPOLAR II 04/23/2014 FARNAZ OLMOS BALJIT S 309.81 AN PTSD 04/23/2014 FARNAZ OLMOS, BALJIT S 314.00 ADHD INATTENTIVE 04/23/2014 BALDERAS DO NOAH K 296.89 MO BIPOLAR II 04/23/2014 BALDERAS DO NOAH K 309.81 AN PTSD 04/23/2014 BALDERAS DO NOAH K 314.00 ADHD INATTENTIVE 04/23/2014 LUC PAZN, TEE J 296.89 MO BIPOLAR II 04/23/2014 LUC PAZN, TEE J 309.81 AN PTSD 04/23/2014 TEE CALLE APRN J 314.00 ADHD INATTENTIVE 06/23/2014 FARNAZ OLMOS, BALJIT S 478.19 OTHER DISEASES OF NASAL CAVITY AND SINUSES 06/23/2014 FARNAZ OLMOS, BALJIT S 780.79 FATIGUE 06/23/2014 FARNAZ OLMOS, BALJIT S 786.2 COUGH 06/23/2014 [facility], PATRICE R 478.19 OTHER DISEASES OF NASAL CAVITY AND SINUSES 06/23/2014 [facility], PATRICE R 780.79 FATIGUE 06/23/2014 [facility], PATRICE R 786.2 COUGH 06/23/2014 TEE CALLE APRN J 478.19 OTHER DISEASES OF NASAL CAVITY AND SINUSES 06/23/2014 TEE CALLE APRN J 780.79 FATIGUE 06/23/2014 TEE CALLE APRN J 786.2 COUGH 06/23/2014 ALVAREZ VÁZQUEZSJESUS 478.19 OTHER DISEASES OF NASAL CAVITY AND SINUSES 06/23/2014 ALVAREZ VÁZQUEZSJESUS 780.79 FATIGUE 06/23/2014 PINOKORY VÁZQUEZS, JESUS 786.2 COUGH 06/23/2014 TEE CALLE APRN J 478.19 OTHER DISEASES OF NASAL CAVITY AND SINUSES 06/23/2014 TEE CALLE APRN J 780.79 FATIGUE 06/23/2014 KRUNAL CALLE APRNA J 786.2 COUGH 06/23/2014 FARNAZ OLMOS, BALJIT S 478.19 OTHER DISEASES OF NASAL CAVITY AND SINUSES 06/23/2014 FARNAZ OLMOS, BALJIT S 780.79 FATIGUE 06/23/2014 FARNAZ OLMOS, BALJIT S 786.2 COUGH 06/23/2014 FARNAZ OLMOS, BALJIT S 478.19 OTHER DISEASES OF NASAL CAVITY AND SINUSES 06/23/2014 FARNAZ OLMOS, BALJIT S 780.79 FATIGUE 06/23/2014 FARNAZ OLMOS, BALJIT S 786.2 COUGH 06/23/2014 NOAH BALDERAS DO K 478.19 OTHER DISEASES OF NASAL CAVITY AND SINUSES 06/23/2014 NOAH BALDERAS DO K 780.79 FATIGUE 06/23/2014 NOAH BALDERAS DO K 786.2 COUGH 06/23/2014 TEE CALLE APRN 478.19 OTHER DISEASES OF NASAL CAVITY AND SINUSES 06/23/2014 TEE CALLE APRN J 780.79 FATIGUE 06/23/2014 TEE CALLE APRN 786.2 COUGH 07/13/2014 CLARITA JOAQUIN Ot 466.0 ACUTE BRONCHITIS 07/13/2014 CLARITA JOAQUIN Ot 599.0 URIN TRACT INFECTION NOS 07/13/2014 CLARITA JOAQUIN Ot 786.2 COUGH 07/13/2014 CLARITA JOAQUIN Ot 794.5 ABN THYROID FUNCT STUDY 07/21/2014 [facility], PATRICE R 465.9 UPPER RESPIRATORY INFECTION 07/21/2014 TEE CALLE APRN 465.9 UPPER RESPIRATORY INFECTION 07/21/2014 JESUS PINO DDS 465.9 UPPER RESPIRATORY INFECTION 07/21/2014 TEE CALLE APRN 465.9 UPPER RESPIRATORY INFECTION 07/21/2014 BALJIT OSEI APRN S 465.9 UPPER RESPIRATORY INFECTION 07/21/2014 BALJIT OSEI APRN S 465.9 UPPER RESPIRATORY INFECTION 07/21/2014 NOAH BALDERAS DO 465.9 UPPER RESPIRATORY INFECTION 07/21/2014 TEE CALLE APRN 465.9 UPPER RESPIRATORY INFECTION 07/25/2014 ARNOLD PRESTON DOA K Ot 473.9 CHRONIC SINUSITIS NOS 07/25/2014 ARNOLD PRESTON DOA K Ot 599.0 URIN TRACT INFECTION NOS 07/25/2014 MOHAN CALLES FRANKLIN K Ot 786.05 SHORTNESS OF BREATH 07/25/2014 MOHAN DOARNOLDA K Ot 794.5 ABN THYROID FUNCT STUDY 07/25/2014 MOHAN CALLES FRANKLIN K Ot V58.69 OTH MED,LT,CURRENT USE 09/08/2014 TEE CALLE APRN V04.81 FLU SHOT 09/08/2014 JESUS PINO DDS V04.81 FLU SHOT 09/08/2014 TEE ACLLE APRN V04.81 FLU SHOT 09/08/2014 BALJIT OSEI APRN S V04.81 FLU SHOT 09/08/2014 BALJIT OSEI APRN S V04.81 FLU SHOT 09/08/2014 NOAH BALDERAS DO V04.81 FLU SHOT 09/08/2014 LUC PAZTEE Rader J V04.81 FLU SHOT 10/13/2014 CRISTIANE OSEI APRNA S 786.2 COUGH 10/13/2014 FARNAZCHITO OLMOS, BALJIT S 789.00 ABDOMINAL PAIN UNSPECIFIED SITE 10/13/2014 PRAVEENA OSEI APRNNDA S 786.2 COUGH 10/13/2014 PRAVEENA OSEI APRNNDA S 789.00 ABDOMINAL PAIN UNSPECIFIED SITE 10/13/2014 BALDERAS DO, NOAH K 786.2 COUGH 10/13/2014 BALDERAS DO, NOAH K 789.00 ABDOMINAL PAIN UNSPECIFIED SITE 10/13/2014 TEE CALLE APRN J 786.2 COUGH 10/13/2014 TEE CALLE APRN J 789.00 ABDOMINAL PAIN UNSPECIFIED SITE 11/10/2014 BALJIT OSEI APRN S 278.00 OBESITY 11/10/2014 NOAH BALDERAS DO K 278.00 OBESITY 11/10/2014 TEE CALLE APRN 278.00 OBESITY 12/16/2014 BALDERAS NOAH CALLES K 786.05 SHORTNESS OF BREATH 12/16/2014 TEE CALLE APRN J 786.05 SHORTNESS OF BREATH 03/23/2015 Ot 789.00 03/23/2015 Ot 784.0 03/23/2015 Ot 787.03 03/23/2015 Ot 244.9 03/23/2015 Ot 599.0 03/23/2015 FRANKLIN PRESTON DO Ot 244.9 HYPOTHYROIDISM NOS 03/23/2015 FRANKLIN PRESTON DO Ot 300.00 ANXIETY STATE NOS 03/23/2015 FRANKLIN PRESTON DO Ot 305.1 TOBACCO USE DISORDER 03/23/2015 FARNKLIN PRESTON DO Ot 305.20 CANNABIS ABUSE-UNSPEC 03/23/2015 FRANKLIN PRESTON DO Ot 305.70 AMPHETAMINE ABUSE-UNSPEC 03/23/2015 FRANKLIN PRESTON DO Ot 493.90 ASTHMA, UNSPECIFIED 03/23/2015 FRANKLIN PRESTON DO Ot 786.05 SHORTNESS OF BREATH 03/23/2015 FRANKLIN PRESTON DO Ot 786.09 RESPIRATORY ABNORM NEC 03/23/2015 Ot 789.00 03/23/2015 Ot 784.0 03/23/2015 Ot 787.03 03/23/2015 Ot 244.9 03/23/2015 Ot 599.0 01/05/2017 Ot 244.9 HYPOTHYROIDISM NOS 01/05/2017 Ot 599.0 URIN TRACT INFECTION NOS 01/05/2017 Ot 244.9 HYPOTHYROIDISM NOS 01/05/2017 Ot 599.0 URIN TRACT INFECTION NOS 01/05/2017 ELANA GRIJALVA APRN Ot R51 HEADACHE 01/05/2017 ELANA GRIJALVA APRN Ot Z79.899 OTHER SOLVENT MIXER (CURRENT) DRUG THERAPY 02/03/2018 ELANA GRIJALVA APRN Ot E03.9 HYPOTHYROIDISM, UNSPECIFIED 02/03/2018 ELANA GRIJALVA APRN Ot E87.6 HYPOKALEMIA 02/03/2018 ELANA GRIJALVA APRN Ot F12.10 CANNABIS ABUSE, UNCOMPLICATED 02/03/2018 ELANA GRIJALVA APRN Ot F12.188 CANNABIS ABUSE WITH OTHER CANNABIS-INDUC 02/03/2018 ELANA GRIJALVA APRN Ot F17.210 NICOTINE DEPENDENCE, CIGARETTES, UNCOMPL 02/03/2018 ELANA GRIJALVA APRN Ot F31.9 BIPOLAR DISORDER, UNSPECIFIED 02/03/2018 ELANA GRIJALVA APRN Ot F41.0 PANIC DISORDER [EPISODIC PAROXYSMAL ANXI 02/03/2018 ELANA GRIJALVA APRN Ot F90.9 ATTENTION-DEFICIT HYPERACTIVITY DISORDER 02/03/2018 ELANA GRIJALVA APRN Ot G43.909 MIGRAINE, UNSP, NOT INTRACTABLE, WITHOUT 02/03/2018 ELANA GRIJALVA APRN Ot J45.909 UNSPECIFIED ASTHMA, UNCOMPLICATED 02/03/2018 ELANA GRIJALVA APRN Ot K21.9 GASTRO-ESOPHAGEAL REFLUX DISEASE WITHOUT 02/03/2018 ELANA GRIJALVA APRN Ot R11.10 VOMITING, UNSPECIFIED 02/03/2018 ELANA GRIJALVA APRN Ot R11.2 NAUSEA WITH VOMITING, UNSPECIFIED 02/03/2018 ELANA GRIJALVA APRN Ot Z86.19 PERSONAL HISTORY OF OTHER INFECTIOUS AND 02/03/2018 ELANA GRIJALVA APRN Ot Z88.0 ALLERGY STATUS TO PENICILLIN 02/03/2018 ELANA GRIJALVA APRN Ot Z88.2 ALLERGY STATUS TO SULFONAMIDES STATUS 02/05/2018 GRIJALVA, PETER J 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 E03.9 HYPOTHYROIDISM, UNSPECIFIED 02/05/2018 ELANA GRIJALVA APRN Ot E87.6 HYPOKALEMIA 02/05/2018 ELANA GRIJALVA APRN Ot F12.10 CANNABIS ABUSE, UNCOMPLICATED 02/05/2018 ELANA GRIJALVA APRN Ot F12.188 CANNABIS ABUSE WITH OTHER CANNABIS-INDUC 02/05/2018 ELANA GRIJALVA APRN Ot F17.210 NICOTINE DEPENDENCE, CIGARETTES, UNCOMPL 02/05/2018 ELANA GRIJALVA APRN Ot F31.9 BIPOLAR DISORDER, UNSPECIFIED 02/05/2018 ELANA GRIJALVA APRN Ot F41.0 PANIC DISORDER [EPISODIC PAROXYSMAL ANXI 02/05/2018 ELANA GRIJALVA APRN Ot F90.9 ATTENTION-DEFICIT HYPERACTIVITY DISORDER 02/05/2018 ELANA GRIJALVA APRN Ot G43.909 MIGRAINE, UNSP, NOT INTRACTABLE, WITHOUT 02/05/2018 ELANA GRIJALVA APRN Ot J45.909 UNSPECIFIED ASTHMA, UNCOMPLICATED 02/05/2018 ELANA GRIJALVA APRN Ot K21.9 GASTRO-ESOPHAGEAL REFLUX DISEASE WITHOUT 02/05/2018 ELANA GRIJALVA APRN Ot R11.10 VOMITING, UNSPECIFIED 02/05/2018 ELANA GRIJALVA APRN Ot R11.2 NAUSEA WITH VOMITING, UNSPECIFIED 02/05/2018 ELANA GRIJALVA APRN Ot Z86.19 PERSONAL HISTORY OF OTHER INFECTIOUS AND 02/05/2018 ELANA GRIJALVA APRN Ot Z88.0 ALLERGY STATUS TO PENICILLIN 02/05/2018 ELANA GRIJALVA APRN Ot Z88.2 ALLERGY STATUS TO SULFONAMIDES STATUS Procedures Code [place] [address] ROUTINE VENIPUNCTURE 10/14/2012 55186 TSH 10/14/2012 62173 CBC 10/14/2012 43589 CMP 10/14/2012 [id number] GFR CALC (RESULT ONLY) 10/14/2012 71262 ROUTINE VENIPUNCTURE 11/29/2012 37971 URINE DRUG SCREEN (IN-HOUSE ) 11/29/2012 34241 ESR/SED RATE 11/29/2012 09442 CRP 11/29/2012 81406 TSH 11/29/2012 88650 RA FACTOR 11/30/2012 ANAANA HAO ANALYZER (SCREEN) 11/30/2012 65529 ROUTINE VENIPUNCTURE 10/13/2013 44077 TSH 10/14/2013 70749 ROUTINE VENIPUNCTURE 12/04/2013 72321 TSH 12/05/2013 36956 PSYCH DIAGNOSTIC EVALUATION 03/11/2014 02711 ROUTINE VENIPUNCTURE 03/16/2014 62754 T4 FREE 03/16/2014 66432 TSH 03/16/2014 76719 ROUTINE VENIPUNCTURE 06/18/2014 37163 T4 TOTAL 06/19/2014 77978 TSH 06/19/2014 66921 ROUTINE VENIPUNCTURE 06/23/2014 03773 MONO TEST (IN-HOUSE) 06/23/2014 18610 CBC 06/24/2014 65299 PSYCH DIAGNOSTIC EVALUATION 07/23/2014 64828 ROUTINE VENIPUNCTURE 09/08/2014 03480 T4 FREE 09/08/2014 04084 TSH 09/08/2014 03077 OXIMETRY 09/24/2014 33638 ROUTINE VENIPUNCTURE 12/10/2014 74502 T4 FREE 12/11/2014 93025 TSH 12/11/2014 83829 PULMONARY FUNCTION TEST (IN- HOUSE) 12/16/2014 72997 RESPIRATORY FLOW VOLUME LOOP 12/16/2014 Results Test Result Range Comp. Metabolic Panel (14) - 06/25/17 11:11 Glucose, Serum 89 mg/dL 65-99 BUN 6 mg/dL 6-20 Creatinine, Serum 0.70 mg/dL 0.57-1.00 eGFR If NonAfricn Am 119 mL/min/1.73 >59 eGFR If Africn Am 137 mL/min/1.73 >59 BUN/Creatinine Ratio 9 9-23 Sodium, Serum 139 mmol/L 134-144 Potassium, Serum 3.9 mmol/L 3.5-5.2 Chloride, Serum 96 mmol/L 96-106 Carbon Dioxide, Total 27 mmol/L 18-29 Calcium, Serum 10.0 mg/dL 8.7-10.2 Protein, Total, Serum 7.3 g/dL 6.0-8.5 Albumin, Serum 4.5 g/dL 3.5-5.5 Globulin, Total 2.8 g/dL 1.5-4.5 A/G Ratio 1.6 1.2-2.2 Bilirubin, Total 0.4 mg/dL 0.0-1.2 Alkaline Phosphatase, S 69 IU/L 39-117 AST (SGOT) 189 IU/L 0-40 ALT (SGPT) 67 IU/L 0-32 TSH - 06/25/17 11:11 TSH 81.420 uIU/mL 0.450-4.500 CMP - 06/25/17 11:11 Glucose, Serum 89 mg/dL 65-99 BUN 6 mg/dL 6-20 Creatinine, Serum 0.70 mg/dL 0.57-1.00 eGFR If NonAfricn Am 119 mL/min/1.73 >59 eGFR If Africn Am 137 mL/min/1.73 >59 BUN/Creatinine Ratio 9 9-23 Sodium, Serum 139 mmol/L 134-144 Potassium, Serum 3.9 mmol/L 3.5-5.2 Chloride, Serum 96 mmol/L 96-106 Carbon Dioxide, Total 27 mmol/L 18-29 Calcium, Serum 10.0 mg/dL 8.7-10.2 Protein, Total, Serum 7.3 g/dL 6.0-8.5 Albumin, Serum 4.5 g/dL 3.5-5.5 Globulin, Total 2.8 g/dL 1.5-4.5 A/G Ratio 1.6 1.2-2.2 Bilirubin, Total 0.4 mg/dL 0.0-1.2 Alkaline Phosphatase, S 69 IU/L 39-117 AST (SGOT) 189 IU/L 0-40 ALT (SGPT) 67 IU/L 0-32 T4 FREE - 06/25/17 11:11 T4,Free(Direct) 0.48 ng/dL 0.82-1.77 CULTURE, URINE - 06/25/17 11:11 Urine Culture, Routine Final report NRG Result 1 No growth NRG Thyroxine (T4) Free, Direct, S - 06/25/17 11:11 T4,Free(Direct) 0.48 ng/dL 0.82-1.77 Written Authorization - 06/25/17 11:11 Written Authorization Comment Urine Culture, Routine - 06/25/17 11:11 Urine Culture, Routine Note CBC - 11/08/17 15:13 WHITE BLOOD CELL COUNT 8.8 Thousand/uL 3.8-10.8 RED BLOOD CELL COUNT 3.88 Million/uL 3.80-5.10 HEMOGLOBIN 12.4 g/dL 11.7-15.5 HEMATOCRIT 36.0 % 35.0-45.0 MCV 92.8 fL 80.0-100.0 MCH 32.0 pg 27.0-33.0 MCHC 34.4 g/dL 32.0-36.0 RDW 13.3 % 11.0-15.0 PLATELET COUNT 475 Thousand/uL 140-400 MPV 11.5 fL 7.5-12.5 ABSOLUTE NEUTROPHILS 5966 cells/uL 6576-7789 ABSOLUTE LYMPHOCYTES 2015 cells/uL 850-3900 ABSOLUTE MONOCYTES 642 cells/uL 200-950 ABSOLUTE EOSINOPHILS 123 cells/uL 15-500 ABSOLUTE BASOPHILS 53 cells/uL 0-200 NEUTROPHILS 67.8 % NRG LYMPHOCYTES 22.9 % NRG MONOCYTES 7.3 % NRG EOSINOPHILS 1.4 % NRG BASOPHILS 0.6 % NRG Complete blood count (CBC) with automated white blood cell (WBC) differential - 02/03/18 13:40 Blood leukocytes automated count (number/volume) 10.7 10*3/uL 4.3-11.0 Blood erythrocytes automated count (number/volume) 4.37 10*6/uL 4.35-5.85 Venous blood hemoglobin measurement (mass/volume) 14.1 g/dL 11.5-16.0 Blood hematocrit (volume fraction) 40 % 35-52 Automated erythrocyte mean corpuscular volume 92 [foz_us] 80-99 Automated erythrocyte mean corpuscular hemoglobin (mass per erythrocyte) 32 pg 25-34 Automated erythrocyte mean corpuscular hemoglobin concentration measurement ( mass/volume) 35 g/dL 32-36 Automated erythrocyte distribution width ratio 13.7 % 10.0-14.5 Automated blood platelet count (count/volume) 449 10*3/uL 130-400 Automated blood platelet mean volume measurement 11.6 [foz_us] 7.4-10.4 Automated blood neutrophils/100 leukocytes 61 % 42-75 Automated blood lymphocytes/100 leukocytes 27 % 12-44 Blood monocytes/100 leukocytes 11 % 0-12 Automated blood eosinophils/100 leukocytes 1 % 0-10 Automated blood basophils/100 leukocytes 0 % 0-10 Blood neutrophils automated count (number/volume) 6.5 10*3 1.8-7.8 Blood lymphocytes automated count (number/volume) 2.9 10*3 1.0-4.0 Blood monocytes automated count (number/volume) 1.1 10*3 0.0-1.0 Automated eosinophil count 0.1 10*3/uL 0.0-0.3 Automated blood basophil count (count/volume) 0.0 10*3/uL 0.0-0.1 Comprehensive metabolic panel - 02/03/18 13:40 Serum or plasma sodium measurement (moles/volume) 142 mmol/L 135-145 Serum or plasma potassium measurement (moles/volume) 2.8 mmol/L 3.6-5.0 Serum or plasma chloride measurement (moles/volume) 97 mmol/L 98-107 Carbon dioxide 31 mmol/L 21-32 Serum or plasma anion gap determination (moles/volume) 14 mmol/L 5-14 Serum or plasma urea nitrogen measurement (mass/volume) 14 mg/dL 7-18 Serum or plasma creatinine measurement (mass/volume) 0.96 mg/dL 0.60-1.30 Serum or plasma urea nitrogen/creatinine mass ratio 15 NRG Serum or plasma creatinine measurement with calculation of estimated glomerular filtration rate > NRG Serum or plasma glucose measurement (mass/volume) 90 mg/dL 70-105 Serum or plasma calcium measurement (mass/volume) 9.8 mg/dL 8.5-10.1 Serum or plasma total bilirubin measurement (mass/volume) 0.9 mg/dL 0.1-1.0 Serum or plasma alkaline phosphatase measurement (enzymatic activity/volume) 68 U/L 40-136 Serum or plasma aspartate aminotransferase measurement (enzymatic activity/ volume) 18 U/L 5-34 Serum or plasma alanine aminotransferase measurement (enzymatic activity/volume ) 19 U/L 0-55 Serum or plasma protein measurement (mass/volume) 8.0 g/dL 6.4-8.2 Serum or plasma albumin measurement (mass/volume) 4.5 g/dL 3.2-4.5 Lipase - 02/03/18 13:40 Lipase 24 U/L 8-78 Urine drug screening test - 02/03/18 16:00 Urine phencyclidine detection by screening method NEGATIVE NEGATIVE Urine benzodiazepines detection by screening method POSITIVE NEGATIVE Urine cocaine detection NEGATIVE NEGATIVE Urine amphetamines detection by screening method NEGATIVE NEGATIVE Urine methamphetamine detection by screening method NEGATIVE NEGATIVE Urine cannabinoids detection by screening method POSITIVE NEGATIVE Urine opiates detection by screening method NEGATIVE NEGATIVE Urine barbiturates detection NEGATIVE NEGATIVE Screening urine tricyclic antidepressants detection POSITIVE NEGATIVE Urine methadone detection by screening method NEGATIVE NEGATIVE Urine oxycodone detection NEGATIVE NEGATIVE Urine propoxyphene detection NEGATIVE NEGATIVE Complete urinalysis with reflex to culture - 02/03/18 16:00 Urine color determination KRYSTYNA NRG Urine clarity determination SLIGHTLY CLOUDY NRG Urine pH measurement by test strip 6 5-9 Specific gravity of urine by test strip 1.020 1.016- 1.022 Urine protein assay by test strip, semi-quantitative 2+ NEGATIVE Urine glucose detection by automated test strip NEGATIVE NEGATIVE Erythrocytes detection in urine sediment by light microscopy NEGATIVE NEGATIVE Urine ketones detection by automated test strip 1+ NEGATIVE Urine nitrite detection by test strip NEGATIVE NEGATIVE Urine total bilirubin detection by test strip 1+ NEGATIVE Urine urobilinogen measurement by automated test strip (mass/volume) 4 mg/dL NORMAL Urine leukocyte esterase detection by dipstick 1+ NEGATIVE Automated urine sediment erythrocyte count by microscopy (number/high power field) [HPF] NRG Automated urine sediment leukocyte count by microscopy (number/high power field ) [HPF] NRG Bacteria detection in urine sediment by light microscopy FEW NRG Squamous epithelial cells detection in urine sediment by light microscopy 10-25 NRG Crystals detection in urine sediment by light microscopy NONE NRG Casts detection in urine sediment by light microscopy NONE NRG Mucus detection in urine sediment by light microscopy NEGATIVE NRG Complete urinalysis with reflex to culture NO NRG CULTURE, GENITAL - 03/19/18 14:25 CULTURE, GENITAL SEE NOTE NRG SUREPATH PAP RFX HPV mRNA E6/E7 - 03/19/18 14:25 CLINICAL INFORMATION: NRG LMP: 02/27/18 NRG PREV. PAP: NEVER NRG PREV. BX: NEVER NRG SOURCE: Cervix NRG STATEMENT OF ADEQUACY: NRG INTERPRETATION/RESULT: NRG FORGE TENDER: NRG GENERAL CATEGORIZATION: NRG COMMENT: NRG PATHOLOGIST: NRG COMMENT NRG TSH - 04/29/18 16:13 TSH 26.52 mIU/L NRG Encounters ACCT No. Visit Date/Time Discharge Status Pt. Type Provider Facility Loc./Unit Complaint [id number] 12/17/2014 15:02:00 12/17/2014 23:59:59 CLS Outpatient TEE CALLE APRN [id number] 12/16/2014 15:56:00 12/16/2014 23:59:59 CLS Outpatient NOAH BALDERAS DO [id number] 12/10/2014 16:01:00 12/10/2014 23:59:59 CLS Outpatient BALJIT OSEI APRN [id number] 10/13/2014 14:47:00 10/13/2014 23:59:59 CLS Outpatient FARNAZCHITO OLMOSPRAVEENABALJIT S [id number] 09/17/2014 14:00:00 09/17/2014 23:59:59 CLS Outpatient JESUS PINO DDS [id number] 09/08/2014 16:15:00 09/08/2014 23:59:59 CLS Outpatient LUC NICKOLAS TEE J [id number] 09/08/2014 16:15:00 09/08/2014 23:59:59 CLS Outpatient LUC PAZPrasanth TEE Claudette [id number] 07/23/2014 09:59:00 07/23/2014 23:59:59 CLS Outpatient APTRICE TEMPLETON [id number] 06/23/2014 15:57:00 06/23/2014 23:59:59 CLS Outpatient BALJIT OSEI APRN [id number] 06/18/2014 16:50:00 06/18/2014 23:59:59 CLS Outpatient BALJIT OSEI APRN [id number] 05/12/2014 16:13:00 05/12/2014 23:59:59 CLS Outpatient LUC PAZPrasanth TEE J [id number] 05/12/2014 16:13:00 05/12/2014 23:59:59 CLS Outpatient LUC TEE OLMOS [id number] 04/23/2014 13:48:00 04/23/2014 23:59:59 CLS Outpatient CRISTIANE OSEI APRNA Morenita [id number] 04/23/2014 11:11:00 04/23/2014 23:59:59 CLS Outpatient LUC OLMOS TEE J [id number] 03/19/2014 16:19:00 03/19/2014 23:59:59 CLS Outpatient FARNAZPRAVEENA NUNEZ APRNNDA S [id number] 03/16/2014 15:25:00 03/16/2014 23:59:59 CLS Outpatient BALJIT OSEI APRN [id number] 03/11/2014 12:52:00 03/11/2014 23:59:59 CLS Outpatient ROSALIE CULP PHD [id number] 01/29/2014 15:50:00 01/29/2014 23:59:59 CLS Outpatient JULIANA WATERS APRN [id number] 01/20/2014 17:25:00 01/20/2014 23:59:59 CLS Outpatient BALDERAS NOAH CALLES [id number] 12/18/2013 16:58:00 12/18/2013 23:59:59 CLS Outpatient EVELIN OLMOS JULIANA Cornelius [id number] 12/04/2013 16:53:00 12/04/2013 23:59:59 CLS Outpatient 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 BALJIT Xavier [id number] 10/30/2013 12:59:00 10/30/2013 23:59:59 CLS Outpatient JENNIFER RIGGS APRN Prasanth [id number] 10/13/2013 15:53:00 10/13/2013 23:59:59 CLS Outpatient FARNAZ SP[employer]NING AND WINDING SUPERVISORBALJIT Rader [id number] 08/12/2013 16:15:00 08/12/2013 23:59:59 CLS Outpatient EVELIN OLMOSJULIANA [id number] 07/21/2013 11:59:00 07/21/2013 23:59:59 CLS Outpatient SUNSHINE FLORES DDS [id number] 07/09/2013 15:02:00 07/09/2013 23:59:59 CLS Outpatient BALDERAS NOAH CALLES [id number] 05/09/2013 12:08:00 05/09/2013 23:59:59 CLS Outpatient SUNSHINE FLORES DDS [id number] 11/29/2012 13:55:00 11/29/2012 23:59:59 CLS Outpatient NOAH BALDERAS DO [id number] 11/19/2012 14:07:00 11/19/2012 23:59:59 CLS Outpatient [id number] 11/05/2012 14:07:00 11/05/2012 23:59:59 CLS Outpatient [id number] 10/14/2012 10:26:00 10/14/2012 23:59:59 CLS Outpatient NOAH BALDERAS DO [id number] 11/22/2009 16:10:00 11/22/2009 23:59:59 CLS Outpatient [id number] 01/23/2013 12:45:00 Document Registration [id number] 09/26/2012 18:30:30 RECURRING [id number] 06/26/2017 08:42:00 Document Registration [id number] 04/01/2018 14:20:00 04/01/2018 23:59:59 CLS Outpatient FARNAZ [employer]ING SUPERVISOR, [facility] [id number] 04/29/2018 15:20:00 Document Registration [id number] 03/19/2018 13:20:00 Document Registration [id number] 11/08/2017 14:20:00 Document Registration [id number] 06/25/2017 10:20:00 Document Registration [id number] 06/29/2017 06:11:00 Document Registration [id number] 09/23/2018 12:26:00 09/23/2018 13:56:00 DIS Emergency ANGELI WOODSON MD [facility] ER NECK SWELLING;ABD PAIN; PTSD [id number] 02/03/2018 13:14:00 02/03/2018 16:56:00 DIS Emergency ELANA GRIJALVA APRN [facility] ER DEHYDRATED VOMITTING FOR 3 DAYS [id number] 01/05/2017 14:15:00 01/05/2017 16:22:00 DIS Emergency ELANA GRIJALVA APRN [facility] ER MIGRANE,VOMITTING [id number] 03/23/2015 01:07:00 03/23/2015 02:32:00 DIS Emergency MOHAN DO, FRANKLIN K [facility] ER SOA [id number] 07/25/2014 16:49:00 07/25/2014 19:57:00 DIS Emergency MOHAN DO, FRANKLIN K [facility] ER SOA [id number] 07/13/2014 14:43:00 07/13/2014 18:56:00 DIS Emergency CLARITA JOAQUIN [facility] ER COUGH [id number] 03/23/2015 01:07:00 Document Registration [id number] 05/12/2012 07:37:00 Document Registration [id number] 05/08/2012 11:18:00 Document Registration [id number] 11/30/2011 13:55:00 Document Registration [id number] 08/08/2011 19:26:00 Document Registration [id number] 04/19/2010 08:58:00 Document Registration [id number] 10/04/2009 10:46:00 Document Registration [id number] 06/26/2017 23:10:00 Document Registration
== END 2018-09-23 13:56 | disposition left against medical advice (07) ==
LOC: EDUNIT# 12:25 → ER 12:26
DX: R22.1 Localized swelling, mass and lump, neck (principal); R10.9 Unspecified abdominal pain; F43.10 Post-traumatic stress disorder, unspecified; Z88.2 Allergy status to sulfonamides; Z88.0 Allergy status to penicillin

== ENCOUNTER 2018-12-13 13:29 | Emergency (ER) | payer SELFPAY ==
[~2018-12-13] VITALS: Ht 149.9 cm; Wt 68.0 kg
[2018-12-13] MEDS ORDERED: MELO7.5O PO (13:44)
[2018-12-13] MEDS ORDERED: TIZA4CAP8 PO (13:44)
[2018-12-13] MEDS ORDERED: AMLO5TAB9 PO (13:44)
[2018-12-13] MEDS ORDERED: diphenhydrAMINE 50 MG/ML INJ (BENADRYL) IM ONE (15:00)
[2018-12-13] MEDS ORDERED: KETOROLAC 60 MG/2 ML VIAL IM ONE (15:00)
[2018-12-13] MEDS ORDERED: PROCHLORPERAZINE 10 MG/2ML INJ (COMPAZINE) IM ONE (15:00)
--- NOTE | 2018-12-13 15:11 | ED Headache ---
General Chief Complaint: Head/Cervical Problems Stated Complaint: HEADACHE Nursing Triage Note: HEAD ACHE FOR 3 DAYS MIGRAINE JEFFERSON, POSS TEETH Nursing Sepsis Screen: No Definite Risk Source: patient Exam Limitations: no limitations History of Present Illness Date Seen by Provider: Dec 13, 2018 Time Seen by Provider: 14:50 Initial Comments 28-year-old female who presents to the emergency room with complaints of a migraine headache for the past 3 days. During exam the patient is on a tablet with music blaring. She reports that this does help her migraines. She is alert and oriented on arrival to the emergency room. She denies nausea and vomiting, fevers. She has history of migraines and reports that this is very similar to previous migraines. Timing/Duration: other (3 days) Location: global Prior Headaches/Recent Trauma: frequent headaches Associated Symptoms: denies symptoms Allergies and Home Medications Allergies Coded Allergies: Sulfa (Sulfonamide Antibiotics) (Unverified Allergy, Unknown, 07/25/14) penicillin G (Verified Allergy, Unknown, 07/25/14) Home Medications Amlodipine Besylate 5 Mg Tablet, 5 MG PO DAILY, (Reported) Citalopram Hydrobromide 40 Mg Tablet, 1 EACH PO DAILY, (Reported) Levothyroxine Sodium 200 Mcg Tablet, 225 MCG PO DAILY, (Reported) Meloxicam 7.5 Mg/5 Ml Oral.susp, 7.5 MG PO BID, (Reported) Tizanidine HCl 4 Mg Capsule, 4 MG PO BID, (Reported) Trazodone Hcl 150 Mg Tablet, 150 MG PO DAILY, (Reported) Patient Home Medication List Home Medication List Reviewed: Yes Review of Systems Review of Systems Constitutional: see HPI; No chills, No fever Psychiatric/Neurological: See HPI, Headache All Other Systems Reviewed Negative Unless Noted: Yes Past Hakkzpv-Cofxme-Zzwmml Hx Past Med/Social Hx: Reviewed Nursing Past Med/Soc Hx Patient Social History Alcohol Use: Rarely Uses Recreational Drug Use: Yes (POT) Smoking Status: Current Everyday Smoker Type Used: Cigarettes Recent Foreign Travel: No Contact w/Someone Who Travel: No Recent Infectious Disease Expo: No Recent Hopitalizations: No Physical Abuse: No Sexual Abuse: No Seasonal Allergies Seasonal Allergies: No Past Medical History Surgeries: Yes (ORBITAL/FACIAL RECONSTRUCTION,MOLE REMOVALS,WISDOM TEETH REMOVAL, I&D'S) Eye Surgery, Orthopedic Respiratory: Yes Asthma, Chronic Bronchitis Cardiac: No Neurological: Yes Concussion, Headaches /Migraines, Traumatic Brain Injury Last Menstrual Period: Nov 24, 2018 Female Reproductive Disorders: Denies Sexually Transmitted Disease: Yes (HERPES) HIV/AIDS: No Gastrointestinal: Yes Gastroesophageal Reflux Musculoskeletal: No Endocrine: Yes Hypothyroidsim Cancer: No Psychosocial: Yes (PANIC ATTACKS) ADD/ADHD, Sleep Difficulties, Anxiety, Bipolar, Depression Integumentary: Yes (ORAL AND GENITAL, "STAPH" AXILLARY ABSCESS ) Herpes Blood Disorders: No Adverse Reaction/Blood Tranf: No Family Medical History Reviewed Nursing Family Hx Physical Exam Vital Signs Vital Signs - First Documented 12/13/18 13:34 Temp 96.4 Pulse 64 Resp 18 B/P (MAP) 142/87 (105) Pulse Ox 99 Capillary Refill : Less Than 3 Seconds Height, Weight, BMI Height: 4'11.00" Weight: 150lbs. oz. 68.365051jx; BMI Method:Stated General Appearance: WD/WN, no apparent distress Cardiovascular: normal peripheral pulses, regular rate, rhythm, no edema, no gallop, no JVD, no murmur Respiratory: chest non-tender, lungs clear, normal breath sounds, no respiratory distress, no accessory muscle use Extremities: normal capillary refill Psychiatric: alert, oriented x 3 Crainal Nerves: normal hearing, normal speech, PERRL Coordination/Gait: normal finger to nose, normal gait Skin: normal color, warm/dry Progress/Results/Core Measures Results/Orders My Orders Orders - JACOB BENITEZ Ketorolac Injection (Toradol Injection) (12/13/18 15:00) Diphenhydramine Injection (Benadryl Inje (12/13/18 15:00) Prochlorperazine Injection (Compazine In (12/13/18 15:00) Medications Given in ED Vital Signs/I&O 12/13/18 12/13/18 13:34 15:25 Temp 96.4 96.4 Pulse 64 64 Resp 18 18 B/P (MAP) 142/87 (105) 142/87 (105) Pulse Ox 99 99 Blood Pressure Mean: 105 Progress Progress Note : Time: 15:10 Progress Note I have seen and evaluated the patient. She is feeling better medication administration. She wishes to go home at this time. She agrees with plan of care , plans for discharge, return precautions were given. Departure Impression Primary Impression: Migraine Disposition: 01 HOME, SELF-CARE Condition: Stable/Unchanged Departure-Patient Inst. Decision time for Depature: 15:11 [address]errals: [facility] (PCP/Family) Primary Care Physician Patient Instructions: Migraine Headache (DC) Add. Discharge Instructions: Follow-up with your primary care provider as needed. Return back to the emergency room for worsening symptoms. All discharge instructions reviewed with patient and/or family. Voiced understanding. JACOB BENITEZ Dec 13, 2018 15:11
[2018-12-13 15:25] VITALS: BP 142/87
== END 2018-12-13 15:28 | disposition home or self-care (01) ==
LOC: EDUNIT# 13:29 → ER 13:30
DX: G43.909 Migraine, unspecified, not intractable, without status migrainosus (principal); J45.909 Unspecified asthma, uncomplicated; K21.9 Gastro-esophageal reflux disease without esophagitis; E03.9 Hypothyroidism, unspecified; F90.9 Attention-deficit hyperactivity disorder, unspecified type; F98.8 Other specified behavioral and emotional disorders with onset usually occurring in childhood and adolescence; F41.0 Panic disorder [episodic paroxysmal anxiety]; F31.9 Bipolar disorder, unspecified; F12.10 Cannabis abuse, uncomplicated; F17.210 Nicotine dependence, cigarettes, uncomplicated; Z86.19 Personal history of other infectious and parasitic diseases; Z87.820 Personal history of traumatic brain injury; Z88.2 Allergy status to sulfonamides; Z88.0 Allergy status to penicillin; Z98.890 Other specified postprocedural states
CPT/HCPCS: 99284

== ENCOUNTER 2019-05-01 12:52 | Emergency (ER) | payer SELFPAY ==
[~2019-05-01] VITALS: Ht 149.9 cm; Wt 68.0 kg
[~2019-05-01 12:52] MED LIST changes: +AMLO5TAB9 PO; +MELO7.5O PO; +TIZA4CAP8 PO
[2019-05-01] MEDS ORDERED: PROCHLORPERAZINE 10 MG/2ML INJ (COMPAZINE) IM ONE (13:15)
[2019-05-01] MEDS ORDERED: KETOROLAC 30 MG/ML VIAL IM ONE (13:15)
[2019-05-01] MEDS ORDERED: diphenhydrAMINE 50 MG/ML INJ (BENADRYL) IM ONE (13:15)
[2019-05-01] MEDS ORDERED: CLIN300C11 PO (13:16)
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
[2019-05-01 13:42] VITALS: BP 133/79
== END 2019-05-01 13:41 | disposition home or self-care (01) ==
LOC: EDUNIT# 12:52 → ER 12:53
DX: R51 Headache (principal); K05.10 Chronic gingivitis, plaque induced; J44.9 Chronic obstructive pulmonary disease, unspecified; K21.9 Gastro-esophageal reflux disease without esophagitis; E03.9 Hypothyroidism, unspecified; F41.0 Panic disorder [episodic paroxysmal anxiety]; F90.9 Attention-deficit hyperactivity disorder, unspecified type; F31.9 Bipolar disorder, unspecified; Z87.820 Personal history of traumatic brain injury; Z86.69 Personal history of other diseases of the nervous system and sense organs; Z88.2 Allergy status to sulfonamides; Z88.0 Allergy status to penicillin
CPT/HCPCS: 99284

== ENCOUNTER 2019-06-10 12:07 | Emergency (ER) | payer SELFPAY ==
[~2019-06-10] VITALS: Ht 130 cm; Wt 81.0 kg
[~2019-06-10 12:07] MED LIST changes: +CLIN300C11 PO
[2019-06-10] MEDS ORDERED: KETOROLAC 30 MG/ML VIAL IM ONE (12:45)
[2019-06-10] MEDS ORDERED: PROMETHAZINE INJ 25 MG/ML (PHENERGAN) AMP IM ONE (12:45)
--- NOTE | 2019-06-10 12:48 | NUR ---
ELANA NOTIFIED THAT PT WOULD LIKE SOMETHING MORE FAST ACTING FOR PAIN THEN TORADOL.
--- NOTE | 2019-06-10 12:51 | ED EENT ---
History of Present Illness General Chief Complaint: Dental Problems/Pain Stated Complaint: DENTAL PAIN;BP ISSUES Nursing Triage Note: pt presents to ed with complaints of dental pain and blood pressure issues. Pt also reports intermittent upper abdominal pain. Source: patient Exam Limitations: no limitations History of Present Illness Date Seen by Provider: Jun 10, 2019 Time Seen by Provider: 12:46 Initial Comments To ER with dental pain on the right upper and lower side for a few days, intermittent high blood pressure, she is normally been taking Norvasc but was taken off of that when she lost weight. Because of the high blood pressure recently she borrowed some from her grandma. She believes that blood pressure today is from her dental pain. She also reports a one-year history of abdominal pain. She is also out of her psychiatric medications. States she can't afford anything. Timing/Duration: other Severity: moderate Location: dental Associated Symptoms: denies symptoms Allergies and Home Medications Allergies Coded Allergies: Sulfa (Sulfonamide Antibiotics) (Unverified Allergy, Unknown, 07/25/14) penicillin G (Verified Allergy, Unknown, 07/25/14) Home Medications Amlodipine Besylate 5 Mg Tablet, 5 MG PO DAILY, (Reported) Citalopram Hydrobromide 40 Mg Tablet, 1 EACH PO DAILY, (Reported) Clindamycin HCl 300 Mg Capsule, 300 MG PO TID Prescribed by: ELANA GRIJALVA on 05/01/19 1316 Levothyroxine Sodium 200 Mcg Tablet, 225 MCG PO DAILY, (Reported) Meloxicam 7.5 Mg/5 Ml Oral.susp, 7.5 MG PO BID, (Reported) Tizanidine HCl 4 Mg Capsule, 4 MG PO BID, (Reported) Trazodone Hcl 150 Mg Tablet, 150 MG PO DAILY, (Reported) Patient Home Medication List Home Medication List Reviewed: Yes Review of Systems Review of Systems Constitutional: see HPI Eyes: No Symptoms Reported Ears: No Symptoms Reported Nose: no symptoms reported Mouth: no symptoms reported Throat: no symptoms reported Respiratory: no symptoms reported Cardiovascular: no symptoms reported Gastrointestinal: abdominal pain Musculoskeletal: no symptoms reported Skin: no symptoms reported Neurological: No Symptoms Reported Hematologic/Lymphatic: No Symptoms Reported Immunological/Allergic: no symptoms reported Past Adsacdt-Xsitpn-Gywdbs Hx Patient Social History Alcohol Use: Rarely Uses Recreational Drug Use: Yes Drug of Choice: marijuana, hydrocodone, xanax Smoking Status: Current Everyday Smoker Type Used: Cigarettes, Electronic/Vapor Recent Foreign Travel: No Contact w/Someone Who Travel: No Recent Infectious Disease Expo: No Recent Hopitalizations: No Seasonal Allergies Seasonal Allergies: No Past Medical History Surgeries: Yes (ORBITAL/FACIAL RECONSTRUCTION,MOLE REMOVALS,WISDOM TEETH REMOVAL, I&D'S) Eye Surgery, Orthopedic Respiratory: Yes Asthma, Chronic Bronchitis Cardiac: Yes Hypertension Neurological: Yes Concussion, Headaches /Migraines, Traumatic Brain Injury Female Reproductive Disorders: Denies Sexually Transmitted Disease: Yes (HERPES) HIV/AIDS: No Genitourinary: No Gastrointestinal: Yes Gastroesophageal Reflux Musculoskeletal: No Endocrine: Yes Hypothyroidsim, Pituitary Disease Cancer: No Psychosocial: Yes (PANIC ATTACKS) ADD/ADHD, Sleep Difficulties, Anxiety, PTSD, Bipolar, Depression Integumentary: Yes (ORAL AND GENITAL, "STAPH" AXILLARY ABSCESS ) Eczema, Herpes Blood Disorders: No Adverse Reaction/Blood Tranf: No Physical Exam Vital Signs Vital Signs - First Documented 06/10/19 12:16 Temp 36.8 Pulse 81 Resp 16 B/P (MAP) 149/92 (111) Pulse Ox 97 Height, Weight, BMI Height: 4'11.00" Weight: 150lbs. oz. 68.376881re; 47.00 BMI Method:Stated General Appearance: WD/WN, no apparent distress, other (stress, playing on her cell phone) Eyes: bilateral eye normal inspection, bilateral eye PERRL, bilateral eye EOMI Ears: bilateral ear auricle normal, bilateral ear canal normal, bilateral ear TM normal Mouth/Throat: other (multiple eroded carious teeth, no maxillary or mandibular swelling, no abscess.) Neck: non-tender, full range of motion; No lymphadenopathy (R), No lymphadenopathy (L) Cardiovascular: regular rate, rhythm, no murmur Respiratory: no respiratory distress, no accessory muscle use Gastrointestinal: normal bowel sounds, non tender, other (abdomen is round soft and nontender, bowel sounds are normal) Neurologic/Psychiatric: normal mood/affect, oriented x 3 Skin: normal color, warm/dry Progress/Results/Core Measures Results/Orders My Orders Orders - ELANA GRIJALVA APRN Promethazine Injection (Phenergan Injec (06/10/19 12:45) Ketorolac Injection (Toradol Injection) (06/10/19 12:45) Medications Given in ED Current Medications Medications Dose Ordered Sig/Bj Route Start Time Stop Time Status Last Admin Dose Admin Ketorolac Tromethamine 60 mg ONCE ONCE IM 06/10/19 12:45 06/10/19 12:46 06/10/19 12:42 60 MG Promethazine HCl 25 mg ONCE ONCE IM 06/10/19 12:45 06/10/19 12:46 06/10/19 12:43 25 MG Vital Signs/I&O 06/10/19 12:16 Temp 36.8 Pulse 81 Resp 16 B/P (MAP) 149/92 (111) Pulse Ox 97 Blood Pressure Mean: 111 Departure Communication (Admissions) She also states that she is out of her psychiatric medications, would like a prescription for Zanaflex and meloxicam as well and she can't afford clindamycin. I spoke with Adrián PATRICK's nurse at [facility], they will call in the clindamycin to the apothecary or she can fill this at [facility] to no-cost. Impression Primary Impression: Dental caries Disposition: 01 HOME, SELF-CARE Condition: Stable Departure-Patient Inst. Decision time for Depature: 12:50 Referrals: [facility] (PCP/Family) Primary Care Physician Patient Instructions: Dental Pain (DC) Add. Discharge Instructions: 1. Return to ER for any concerns 2. Go to [facility], I spoke with Adrián PATRICK's nurse, they will fill the clindamycin for you there Copy Copies To 1: NOAH BALDERAS PETER J APRN Jun 10, 2019 12:51
[2019-06-10 13:02] VITALS: BP 149/92
== END 2019-06-10 13:02 | disposition home or self-care (01) ==
LOC: EDUNIT# 12:07 → ER 12:08
DX: K02.9 Dental caries, unspecified (principal); I10 Essential (primary) hypertension; J45.909 Unspecified asthma, uncomplicated; G43.909 Migraine, unspecified, not intractable, without status migrainosus; K21.9 Gastro-esophageal reflux disease without esophagitis; E03.9 Hypothyroidism, unspecified; F41.0 Panic disorder [episodic paroxysmal anxiety]; F43.10 Post-traumatic stress disorder, unspecified; F31.9 Bipolar disorder, unspecified; F90.9 Attention-deficit hyperactivity disorder, unspecified type; F17.290 Nicotine dependence, other tobacco product, uncomplicated; F17.210 Nicotine dependence, cigarettes, uncomplicated; Z87.820 Personal history of traumatic brain injury; Z88.2 Allergy status to sulfonamides; Z88.0 Allergy status to penicillin
CPT/HCPCS: 99284

== ENCOUNTER 2019-07-01 07:56 | Emergency (ER) | payer SELFPAY ==
[~2019-07-01] VITALS: Ht 149 cm; Wt 76.0 kg
[2019-07-01] MEDS ORDERED: LIDOCAINE 1% INJ 20 ML 20 ML VIAL ONE (08:09)
--- NOTE | 2019-07-01 08:26 | ED EENT ---
History of Present Illness General Chief Complaint: Dental Problems/Pain Stated Complaint: JAW SWELLING Nursing Triage Note: ARRIVED VIA EMS FROM HOME WITH COMPLAINTS OF RIGHT LOWER JAW SWELLING X2 DAYS. HAS BEEN HERE FOR DENTAL ISSUES AND HAS NOT FOLLOWED UP WITH A DENTIST. Source: patient Exam Limitations: no limitations History of Present Illness Date Seen by Provider: Jul 01, 2019 Time Seen by Provider: 08:22 Initial Comments 29 yo w female w dental caries to right mandibular area for past 2 days. No fever, chill, photophobia, stiff neck, or JEFFERSON. No difficulty w swallowing or airway. Similar episode to same tooth a month ago. Broke off part of same tooth 2 days ago leading to PI. Unable to take PCN or Sulfa. Does well w Clindo. Allergies and Home Medications Allergies Coded Allergies: Sulfa (Sulfonamide Antibiotics) (Unverified Allergy, Unknown, 07/25/14) penicillin G (Verified Allergy, Unknown, 07/25/14) Home Medications Amlodipine Besylate 5 Mg Tablet, 5 MG PO DAILY, (Reported) Citalopram Hydrobromide 40 Mg Tablet, 1 EACH PO DAILY, (Reported) Levothyroxine Sodium 200 Mcg Tablet, 225 MCG PO DAILY, (Reported) Meloxicam 7.5 Mg/5 Ml Oral.susp, 7.5 MG PO BID, (Reported) Tizanidine HCl 4 Mg Capsule, 4 MG PO BID, (Reported) Patient Home Medication List Home Medication List Reviewed: Yes Review of Systems Review of Systems Constitutional: No chills, No fever Eyes: Denies Blurred Vision Ears: Denies Dizziness Nose: no symptoms reported Mouth: pain (right mandibular area w soft tissue swelling.), swelling Throat: denies swelling, denies neck stiffness, denies hoarse, denies painful swallowing, denies difficulty with fluids Respiratory: No cough Cardiovascular: No chest pain Gastrointestinal: no symptoms reported Musculoskeletal: no symptoms reported Neurological: No Symptoms Reported Hematologic/Lymphatic: No Symptoms Reported Immunological/Allergic: no symptoms reported Past Wcvyagi-Vmdlvl-Qkaldm Hx Past Med/Social Hx: Reviewed Nursing Past Med/Soc Hx Patient Social History Alcohol Use: Rarely Uses Recreational Drug Use: Yes Drug of Choice: POT Smoking Status: Current Everyday Smoker Type Used: Cigarettes, Electronic/Vapor Recent Foreign Travel: No Contact w/Someone Who Travel: No Recent Infectious Disease Expo: No Recent Hopitalizations: No Seasonal Allergies Seasonal Allergies: No Past Medical History Surgeries: Yes (ORBITAL/FACIAL RECONSTRUCTION,MOLE REMOVALS,WISDOM TEETH REMOVAL, I&D'S) Eye Surgery, Orthopedic Respiratory: Yes Asthma, Chronic Bronchitis Cardiac: Yes Hypertension Neurological: Yes Concussion, Headaches /Migraines, Traumatic Brain Injury Female Reproductive Disorders: Denies Sexually Transmitted Disease: Yes (HERPES) HIV/AIDS: No Genitourinary: No Gastrointestinal: Yes Gastroesophageal Reflux Musculoskeletal: No Endocrine: Yes Hypothyroidsim, Pituitary Disease Cancer: No Psychosocial: Yes (PANIC ATTACKS) ADD/ADHD, Sleep Difficulties, Anxiety, PTSD, Bipolar, Depression Integumentary: Yes (ORAL AND GENITAL, "STAPH" AXILLARY ABSCESS ) Eczema, Herpes Blood Disorders: No Adverse Reaction/Blood Tranf: No Physical Exam Vital Signs Vital Signs - First Documented 07/01/19 07:59 Temp 36.7 Pulse 86 Resp 16 B/P (MAP) 152/92 (112) Pulse Ox 98 O2 Delivery Room Air Height, Weight, BMI Height: 4'11.00" Weight: 150lbs. oz. 68.792328yt; 34.00 BMI Method:Stated General Appearance: WD/WN, mild distress Eyes: bilateral eye normal inspection Ears: bilateral ear auricle normal Nose: normal inspection Mouth/Throat: other (soft tissue swelling over right mandible. no abscess orally. broken tooth w caries 2nd molar right mandible.) Neck: non-tender, full range of motion, supple Cardiovascular: regular rate, rhythm Respiratory: lungs clear Gastrointestinal: non tender, soft Neurologic/Psychiatric: no motor/sensory deficits, alert Skin: normal color, warm/dry Progress/Results/Core Measures Results/Orders My Orders Orders - ANUPAM DEWITT MD Lidocaine 1% Inj 20 Ml (Xylocaine 1% Inj (07/01/19 08:09) Vital Signs/I&O 07/01/19 07:59 Temp 36.7 Pulse 86 Resp 16 B/P (MAP) 152/92 (112) Pulse Ox 98 O2 Delivery Room Air Blood Pressure Mean: 112 Progress Progress Note : Time: 08:38 Progress Note discussed treatment w pain meds and antibiotics w pt. she will f/u closely w dentist for definitive treatment. Departure Impression Primary Impression: Dental caries Disposition: 01 HOME, SELF-CARE Condition: Unchanged Departure-Patient Inst. Decision time for Depature: 08:39 Referrals: [facility] (PCP/Family) Primary Care Physician Patient Instructions: Dental Pain (DC), Fractured Tooth (DC) Add. Discharge Instructions: Cleocin and Vicodin as prescribed. Close follow up with dentist. Come back if any problems. All discharge instructions reviewed with patient and/or family. Voiced understanding. Scripts Hydrocodone/Acetaminophen (Vicodin 5-300 mg Tablet) 1 Each Tablet 1-2 EACH PO Q6H PRN for PAIN-MODERATE MDD 10 for 7 Days, #20 TAB Prov: ANUPAM DEWITT MD 07/01/19 Clindamycin HCl (Cleocin HCl) 300 Mg Capsule 300 MG PO Q6H, #30 CAP Prov: ANUPAM DEWITT MD 07/01/19 ANUPAM DEWITT MD Jul 01, 2019 08:26
[2019-07-01] MEDS ORDERED: CLIN300C3 PO (08:43)
[2019-07-01] MEDS ORDERED: HYDR-3455 PO (08:43)
[2019-07-01 08:47] VITALS: BP 152/92
== END 2019-07-01 08:47 | disposition home or self-care (01) ==
LOC: EDUNIT# 07:56 → ER 07:57
DX: K02.9 Dental caries, unspecified (principal); I10 Essential (primary) hypertension; J45.909 Unspecified asthma, uncomplicated; G43.909 Migraine, unspecified, not intractable, without status migrainosus; F43.10 Post-traumatic stress disorder, unspecified; F31.9 Bipolar disorder, unspecified; K21.9 Gastro-esophageal reflux disease without esophagitis; F41.0 Panic disorder [episodic paroxysmal anxiety]; F90.9 Attention-deficit hyperactivity disorder, unspecified type; F17.210 Nicotine dependence, cigarettes, uncomplicated; F17.290 Nicotine dependence, other tobacco product, uncomplicated; Z88.2 Allergy status to sulfonamides; Z87.820 Personal history of traumatic brain injury; Z88.0 Allergy status to penicillin
CPT/HCPCS: 99282

== ENCOUNTER 2019-10-08 14:24 | Emergency (ER) | payer SELFPAY ==
[~2019-10-08] VITALS: Ht 149 cm; Wt 84.9 kg
[~2019-10-08 14:24] MED LIST changes: +CLIN300C3 PO; +HYDR-3455 PO
--- NOTE | 2019-10-08 14:41 | ED Cough/URI ---
General Chief Complaint: Cough/Cold/Flu Symptoms Stated Complaint: BODYACHES,RUNNY NOSE Nursing Triage Note: PATIENT AMBULATORY TO ER FT1 WITH COMPLAINT OF SINUS CONGESTION, FEVER, BODY ACHES, NAUSEA AND DIARRHEA X 2 DAYS. PATIENT STATES SHE NEEDS A WORK NOTE SHE WAS UNABLE TO GO TO WORK TODAY. SHE STATES SHE HAS DIFFICULTY WITH BREATHING AND SWALLOWING AT TIMES BUT HAS SEEN A PCP FOR THIS AND HAS AN ULTRASOUND SCHEDULED FOR HER THYROID. Source: patient Exam Limitations: no limitations History of Present Illness Date Seen by Provider: Oct 08, 2019 Time Seen by Provider: 14:30 Initial Comments 29-year-old female who presents to the emergency room with complaints of sinus congestion, bilateral ear pain, fever, body aches, nausea and diarrhea for the past 3 days. She denies any vomiting. She reports that she was unable to go to work today and needs a work note. She denies any use of jdki-ubr-lfpwadc medications. She denies any pain on arrival to the emergency room. Allergies and Home Medications Allergies Coded Allergies: Sulfa (Sulfonamide Antibiotics) (Unverified Allergy, Unknown, 07/25/14) penicillin G (Verified Allergy, Unknown, 07/25/14) Home Medications Amlodipine Besylate 5 Mg Tablet, 5 MG PO DAILY, (Reported) Cefdinir 300 Mg Capsule, 300 MG PO BID Prescribed by: JACOB BENITEZ on 10/08/19 145 Citalopram Hydrobromide 40 Mg Tablet, 1 EACH PO DAILY, (Reported) Clindamycin HCl 300 Mg Capsule, 300 MG PO Q6H Prescribed by: ANUPAM DEWITT MD on 07/01/19 08 Hydrocodone/Acetaminophen 1 Each Tablet, 1-2 EACH PO Q6H PRN for PAIN-MODERATE Prescribed by: ANUPAM DEWITT MD on 07/01/19 0843 Levothyroxine Sodium 200 Mcg Tablet, 225 MCG PO DAILY, (Reported) Meloxicam 7.5 Mg/5 Ml Oral.susp, 7.5 MG PO BID, (Reported) Tizanidine HCl 4 Mg Capsule, 4 MG PO BID, (Reported) Patient Home Medication List Home Medication List Reviewed: Yes Review of Systems Review of Systems Constitutional: see HPI; No chills, No fever; malaise EENTM: see HPI, ear pain, nose congestion All Other Systems Reviewed Negative Unless Noted: Yes Past Ehfshan-Pvecwz-Gauibc Hx Past Med/Social Hx: Reviewed Nursing Past Med/Soc Hx Patient Social History Drug of Choice: POT Type Used: Cigarettes, Electronic/Vapor Recent Foreign Travel: No Contact w/Someone Who Travel: No Recent Hopitalizations: No Seasonal Allergies Seasonal Allergies: No Past Medical History Surgeries: Yes (ORBITAL/FACIAL RECONSTRUCTION,MOLE REMOVALS,WISDOM TEETH REMOV AL, I&D'S) Eye Surgery, Orthopedic Respiratory: Yes Asthma, Chronic Bronchitis Cardiac: Yes Hypertension Neurological: Yes Concussion, Headaches /Migraines, Traumatic Brain Injury Female Reproductive Disorders: Denies Sexually Transmitted Disease: Yes (HERPES) HIV/AIDS: No Genitourinary: No Gastrointestinal: Yes Gastroesophageal Reflux Musculoskeletal: No Endocrine: Yes Hypothyroidsim, Pituitary Disease Cancer: No Psychosocial: Yes (PANIC ATTACKS) ADD/ADHD, Sleep Difficulties, Anxiety, PTSD, Bipolar, Depression Integumentary: Yes (ORAL AND GENITAL, "STAPH" AXILLARY ABSCESS ) Eczema, Herpes Blood Disorders: No Adverse Reaction/Blood Tranf: No Family Medical History Reviewed Nursing Family Hx Physical Exam Vital Signs - First Documented 10/08/19 14:26 Temp 37.5 Pulse 92 Resp 16 B/P (MAP) 160/92 (114) Pulse Ox 96 O2 Delivery Room Air Capillary Refill : Height: 4'11.00" Weight: 150lbs. oz. 68.385651jw; 34.00 BMI Method:Stated General Appearance: WD/WN, no apparent distress Eyes: Bilateral Eye Normal Inspection, Bilateral Eye PERRL, Bilateral Eye EOMI HEENT: PERRL/EOMI, pharynx normal, other (bilateral TM red and bulging) Respiratory: chest non-tender, lungs clear, normal breath sounds, no respiratory distress, no accessory muscle use, respiratory distress Cardiovascular: normal peripheral pulses, regular rate, rhythm, no edema, no gallop, no JVD, no murmur Extremities: normal capillary refill Neurologic/Psychiatric: alert, normal mood/affect, oriented x 3 Skin: normal color, warm/dry Progress/Results/Core Measures Suspected Sepsis SIRS Temperature: Pulse: Respiratory Rate: Blood Pressure / Mean: Results/Orders Micro Results Microbiology 10/08/19 Influenza Types A,B Antigen ([facility]ANTOS) - Final, Complete My Orders Orders - JACOB BENITEZ Influenza A And B Antigens (10/08/19 14:28) Vital Signs/I&O 10/08/19 14:26 Temp 37.5 Pulse 92 Resp 16 B/P (MAP) 160/92 (114) Pulse Ox 96 O2 Delivery Room Air Capillary Refill : Progress Note : Time: 14:54 Progress Note No Tamiflu due to the length of symptoms. Patient agrees with plan of care, plans for discharge, return precautions were given. Departure Impression Primary Impression: Upper respiratory infection Additional Impressions: Bilateral otitis media Influenza Disposition: HOME, SELF-CARE Condition: Stable/Unchanged Departure-Patient Inst. Decision time for Depature: 14:49 Referrals: [facility] (PCP/Family) Primary Care Physician Patient Instructions: Cough, Runny Nose, and the Common Cold (DC), Ear Infections (Otitis Media) (DC), Flu Add. Discharge Instructions: Take medications as directed. You may use kjoo-jbn-gedapzb cold cough flu medications as needed for relief. Tylenol Motrin as needed for pain. Follow-up with your primary care provider as needed. Return back to the emergency room for worsening symptoms or concerns as needed. All discharge instructions reviewed with patient and/or family. Voiced understanding. Scripts Cefdinir (Cefdinir) 300 Mg Capsule 300 MG PO BID for 10 Days, #20 CAP 0 Refills Prov: JACOB BENITEZ 10/08/19 Work/School Note: Work Release Form Date Seen in the Emergency Department: Oct 08, 2019 Return to Work: Oct 13, 2019 Restrictions: Return-No Fever (24hrs) JACOB BENITEZ Oct 08, 2019 14:40
[2019-10-08] MEDS ORDERED: CEFD300C3 PO (14:52)
[2019-10-08 15:01] VITALS: BP 160/92
== END 2019-10-08 15:02 | disposition home or self-care (01) ==
LOC: EDUNIT# 14:24 → ER 14:25
DX: J11.1 Influenza due to unidentified influenza virus with other respiratory manifestations (principal); H66.93 Otitis media, unspecified, bilateral; I10 Essential (primary) hypertension; E03.9 Hypothyroidism, unspecified; F41.0 Panic disorder [episodic paroxysmal anxiety]; F31.9 Bipolar disorder, unspecified; Z88.2 Allergy status to sulfonamides; Z88.0 Allergy status to penicillin
CPT/HCPCS: 87804

== ENCOUNTER → 2019-10-20 | Outpatient (CLI) | payer SELFPAY ==
--- NOTE | 2019-10-20 17:35 | Diagnostic Imaging Report ---
PROCEDURE: US Thyroid. TECHNIQUE: Multiple real-time grayscale images were obtained of the thyroid in various projections. INDICATION: Hypothyroidism. FINDINGS: Right lobe of the thyroid measures 2.7 x 1.2 x 1 cm. Left lobe measures 2 x 0.9 x 0.9 cm. Both lobes are very small. There is homogeneous echogenicity. There are no discrete solid or cystic masses. IMPRESSION: Somewhat small thyroid, otherwise unremarkable. Dictated by: Dictated on workstation # [id number]
--- NOTE | 2019-10-20 17:58 | Diagnostic Imaging Report ---
INDICATION: Bilateral nipple discharge TECHNIQUE: Multiple real-time grayscale images were obtained over both breasts in various projections. FINDINGS: The underlying fibroglandular tissues are heterogeneously dense bilaterally. There are no discrete solid or cystic masses. There is no ductal ectasia. IMPRESSION: Category 1. Negative. Negative bilateral breast ultrasound ACR BI-RADS Category 1: Negative. Result letter will be mailed to the patient. Note: At least 10% of breast cancer is not imaged by mammography. Dictated by: Dictated on workstation # [id number]
== END ==
LOC: RAD 14:20
PROVIDERS: ATTEND Internal Medicine Endocrinology, Diabetes & Metabolism
DX: E03.8 Other specified hypothyroidism (principal); N64.3 Galactorrhea not associated with childbirth
CPT/HCPCS: 76536

== ENCOUNTER 2020-12-16 17:36 | Emergency (ER) | payer SELFPAY ==
[~2020-12-16] VITALS: Ht 147 cm; Wt 90.0 kg
[~2020-12-16 17:36] MED LIST changes: +AMLO-250 PO; -AMLO5TAB9 PO; -CLIN300C11 PO; +CLIN300C12 PO
--- NOTE | 2020-12-16 18:52 | ED EENT ---
History of Present Illness General Chief Complaint: Dental Problems/Pain Stated Complaint: DENTAL PAIN/SWELLING N/V/D Nursing Triage Note: PT REPORTS TO ED FOR TWO MISSING TEETH. ONE HAS BEEN GONE FOR ONE YEAR AND THE OTHER FOR ONE MONTH. GUMS ARE SWOLLEN WELL NECK. PTS TEETH AND GUMS ARE THROBBING. Source: patient Exam Limitations: no limitations History of Present Illness Date Seen by Provider: Dec 16, 2020 Time Seen by Provider: 17:40 Initial Comments To ER with reports of pain to her left upper teeth which have been missing for quite some time but are now painful. She also has an exacerbation of her chronic nausea over the course of the past week. No fevers or chills. Timing/Duration: abrupt, this evening Severity: moderate Prearrival Treatment: no prearrival treatment Associated Symptoms: tooth pain Allergies and Home Medications Allergies Coded Allergies: Sulfa (Sulfonamide Antibiotics) (Unverified Allergy, Unknown, 07/25/14) penicillin G (Verified Allergy, Unknown, 07/25/14) Home Medications Amlodipine Besylate 5 Mg Tablet, 5 MG PO DAILY, (Reported) Cefdinir 300 Mg Capsule, 300 MG PO BID Prescribed by: JACOB BENITEZ on 10/08/191451 Cephalexin 500 Mg Tablet, 500 MG PO TID Prescribed by: ELANA GRIJALVA on 12/16/201935 Citalopram Hydrobromide 40 Mg Tablet, 1 EACH PO DAILY, (Reported) Clindamycin HCl 300 Mg Capsule, 300 MG PO Q6H Prescribed by: ANUPAM DEWITT MD on 07/01/19842 Hydrocodone/Acetaminophen 1 Each Tablet, 1-2 EACH PO Q6H PRN for PAIN-MODERATE Prescribed by: ANUPAM DEWITT MD on 07/01/19842 Levothyroxine Sodium 200 Mcg Tablet, 225 MCG PO DAILY, (Reported) Meloxicam 7.5 Mg/5 Ml Oral.susp, 7.5 MG PO BID, (Reported) Ondansetron 8 Mg Tab.rapdis, 8 MG PO Q6H PRN for NAUSEA/VOMITING Prescribed by: ELANA GRIJALVA on 12/16/201935 Tizanidine HCl 4 Mg Capsule, 4 MG PO BID, (Reported) Patient Home Medication List Home Medication List Reviewed: Yes Review of Systems Review of Systems Constitutional: see HPI Eyes: No Symptoms Reported Ears: No Symptoms Reported Nose: no symptoms reported Mouth: no symptoms reported Throat: no symptoms reported Respiratory: no symptoms reported Cardiovascular: no symptoms reported Gastrointestinal: melena, nausea Musculoskeletal: no symptoms reported Skin: no symptoms reported Neurological: No Symptoms Reported Hematologic/Lymphatic: No Symptoms Reported Immunological/Allergic: no symptoms reported Past Gijzljk-Wtawkr-Ocxpyn Hx Patient Social History Alcohol Use: Denies Use Drug of Choice: MARIJUANA Smoking Status: Current Everyday Smoker Type Used: Cigarettes, Electronic/Vapor 2nd Hand Smoke Exposure: Yes Recent Infectious Disease Expo: No Recent Hopitalizations: No Seasonal Allergies Seasonal Allergies: No Past Medical History Surgeries: Yes (ORBITAL/FACIAL RECONSTRUCTION,MOLE REMOVALS,WISDOM TEETH REMOVAL, I&D'S) Eye Surgery, Orthopedic Respiratory: Yes Asthma, Chronic Bronchitis Cardiac: Yes Hypertension Neurological: Yes Concussion, Headaches /Migraines, Traumatic Brain Injury Female Reproductive Disorders: Denies Sexually Transmitted Disease: Yes (HERPES) HIV/AIDS: No Genitourinary: No Gastrointestinal: Yes Gastroesophageal Reflux Musculoskeletal: No Endocrine: Yes Hypothyroidsim, Pituitary Disease Cancer: No Psychosocial: Yes (PANIC ATTACKS) ADD/ADHD, Sleep Difficulties, Anxiety, PTSD, Bipolar, Depression Integumentary: Yes (ORAL AND GENITAL, "STAPH" AXILLARY ABSCESS ) Eczema, Herpes Blood Disorders: No Adverse Reaction/Blood Tranf: No Physical Exam Vital Signs Vital Signs - First Documented 12/16/20 18:32 Temp 36.1 Pulse 60 Resp 18 B/P (MAP) 151/106 (121) Pulse Ox 99 O2 Delivery Room Air Height, Weight, BMI Height: 4'11.00" Weight: 150lbs. oz. 68.227526em; 41.00 BMI Method:Stated General Appearance: WD/WN, no apparent distress Eyes: bilateral eye normal inspection, bilateral eye PERRL, bilateral eye EOMI Ears: bilateral ear auricle normal, bilateral ear canal normal, bilateral ear TM normal Mouth/Throat: other (Has a few missing teeth without gingival abscess or fluctuance or swelling at the gingivobuccal fold. 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) Neck: non-tender, full range of motion Cardiovascular: regular rate, rhythm, no murmur Respiratory: no respiratory distress, no accessory muscle use Gastrointestinal: normal bowel sounds, non tender Neurologic/Psychiatric: alert, normal mood/affect, oriented x 3 Skin: normal color, warm/dry Progress/Results/Core Measures Results/Orders Lab Results Laboratory Tests Test 12/16/20 18:47 12/16/20 18:54 Range/Units White Blood Count 12.0 H 4.3-11.0 10^3/uL Red Blood Count 4.19 3.80-5.11 10^6/uL Hemoglobin 13.3 11.5-16.0 g/dL Hematocrit 40 35-52 % Mean Corpuscular Volume 96 80-99 fL Mean Corpuscular Hemoglobin 32 25-34 pg Mean Corpuscular Hemoglobin Concent 33 32-36 g/dL Red Cell Distribution Width 12.8 10.0-14.5 % Platelet Count 361 130-400 10^3/uL Mean Platelet Volume 11.4 9.0-12.2 fL Immature Granulocyte % (Auto) 0 % Neutrophils (%) (Auto) 73 42-75 % Lymphocytes (%) (Auto) 17 12-44 % Monocytes (%) (Auto) 7 0-12 % Eosinophils (%) (Auto) 3 0-10 % Basophils (%) (Auto) 1 0-10 % Neutrophils # (Auto) 8.8 H 1.8-7.8 10^3/uL Lymphocytes # (Auto) 2.0 1.0-4.0 10^3/uL Monocytes # (Auto) 0.8 0.0-1.0 10^3/uL Eosinophils # (Auto) 0.3 0.0-0.3 10^3/uL Basophils # (Auto) 0.1 0.0-0.1 10^3/uL Immature Granulocyte # (Auto) 0.0 0.0-0.1 10^3/uL Sodium Level 139 135-145 MMOL/L Potassium Level 5.0 3.6-5.0 MMOL/L Chloride Level 108 H 98-107 MMOL/L Carbon Dioxide Level 18 L 21-32 MMOL/L Anion Gap 13 5-14 MMOL/L Blood Urea Nitrogen 11 7-18 MG/DL Creatinine 1.02 0.60-1.30 MG/DL Estimat Glomerular Filtration Rate > 60 BUN/Creatinine Ratio 11 Glucose Level 86 70-105 MG/DL Calcium Level 9.1 8.5-10.1 MG/DL Corrected Calcium 9.0 8.5-10.1 MG/DL Total Bilirubin 0.9 0.1-1.0 MG/DL Aspartate Amino Transf (AST/SGOT) 28 5-34 U/L Alanine Aminotransferase (ALT/SGPT) 15 0-55 U/L Alkaline Phosphatase 58 40-136 U/L Total Protein 7.4 6.4-8.2 GM/DL Albumin 4.1 3.2-4.5 GM/DL Serum Test, Qualitative NEGATIVE NEGATIVE Urine Color YELLOW Urine Clarity CLEAR Urine pH 6.0 5-9 Urine Specific [place] 1.025 H 1.016-1.022 Urine Protein NEGATIVE NEGATIVE Urine Glucose (UA) NEGATIVE NEGATIVE Urine Ketones NEGATIVE NEGATIVE Urine Nitrite NEGATIVE NEGATIVE Urine Bilirubin NEGATIVE NEGATIVE Urine Urobilinogen 0.2 < = 1.0 MG/DL Urine Leukocyte Esterase NEGATIVE NEGATIVE Urine RBC (Auto) 1+ H NEGATIVE Urine RBC 0-2 /HPF Urine WBC RARE /HPF Urine Squamous Epithelial Cells 10-25 H /HPF Urine Crystals PRESENT H /LPF Urine Amorphous Sediment RARE GIORGI URATES H /LPF Urine Bacteria FEW H /HPF Urine Casts NONE /LPF Urine Mucus NEGATIVE /LPF Urine Culture Indicated NO My Orders Orders - ELANA GRIJALVA APRN Cbc With Automated Diff (12/16/20 18:42) Comprehensive Metabolic Panel (12/16/20 18:42) Hcg,Qualitative Serum (12/16/20 18:42) Ua Culture If Indicated (12/16/20 18:42) Ed Iv/Invasive Line Start (12/16/20 18:42) Ns Iv 1000 Ml (Sodium Chloride 0.9%) (12/16/20 19:30) Ondansetron Injection (Zofran Injectio (12/16/20 19:30) Ketorolac Injection (Toradol Injection) (12/16/20 19:30) Medications Given in ED Current Medications Medications Dose Ordered Sig/Bj Route Start Time Stop Time Status Last Admin Dose Admin Ketorolac Tromethamine 15 mg ONCE ONCE IVP 12/16/20 19:30 12/16/20 19:31 DC 12/16/20 19:30 15 MG Ondansetron HCl 8 mg ONCE ONCE IVP 12/16/20 19:30 12/16/20 19:31 DC 12/16/20 19:30 8 MG Vital Signs/I&O 12/16/20 18:32 Temp 36.1 Pulse 60 Resp 18 B/P (MAP) 151/106 (121) Pulse Ox 99 O2 Delivery Room Air Blood Pressure Mean: 121 Departure Impression Primary Impression: Dental caries Disposition: 01 HOME, SELF-CARE Condition: Stable Departure-Patient Inst. Decision time for Depature: 19:34 Referrals: [facility] (PCP/Family) Primary Care Physician Patient Instructions: Dental Pain (DC) Add. Discharge Instructions: . Call your dentist tomorrow to make an appointment to be seen for follow-up. Medication as directed. All discharge instructions reviewed with patient and/or family. Voiced understanding. Scripts Ondansetron (Ondansetron Odt) 8 Mg Tab.rapdis 8 MG PO Q6H PRN for NAUSEA/VOMITING, #10 TAB Prov: ELANA GRIJALVA APRN 12/16/20 Cephalexin (Cephalexin) 500 Mg Tablet 500 MG PO TID, #20 TAB Prov: ELANA GRIJALVA APRN 12/16/20 Work/School Note: Work Release Form Date Seen in the Emergency Department: Dec 16, 2020 Return to Work: Dec 17, 2020 ELANA GRIJALVA APRN Dec 16, 2020 18:52
[2020-12-16 18:56] LABS: BASOPHILS # (AUTO) 0.1 10^3/uL (0.0-0.1); BASOPHILS % (AUTO) 1 % (0-10); EOSINOPHILS # (AUTO) 0.3 10^3/uL (0.0-0.3); EOSINOPHILS % (AUTO) 3 % (0-10); HEMATOCRIT 40 % (35-52); HEMOGLOBIN 13.3 g/dL (11.5-16.0); LYMPHOCYTES % (AUTO) 17 % (12-44); MEAN CORPUSCULAR HEMOGLOBIN 32 pg (25-34); MEAN CORPUSCULAR HGB CONC 33 g/dL (32-36); MEAN CORPUSCULAR VOLUME 96 fL (80-99); MEAN PLATELET VOLUME 11.4 fL (9.0-12.2); MONOCYTES # (AUTO) 0.8 10^3/uL (0.0-1.0); MONOCYTES % (AUTO) 7 % (0-12); NEUTROPHILS # (AUTO) 8.8 10^3/uL (1.8-7.8); NEUTROPHILS % (AUTO) 73 % (42-75); PLATELET COUNT 361 10^3/uL (130-400)
[2020-12-16 19:02] LABS: BILIRUBIN,URINE NEGATIVE (NEGATIVE); CLARITY,URINE CLEAR; COLOR,URINE YELLOW; GLUCOSE, URINE (UA) NEGATIVE (NEGATIVE); KETONES,URINE NEGATIVE (NEGATIVE); LEUKOCYTE ESTERASE ,URINE NEGATIVE (NEGATIVE); NITRITE,URINE NEGATIVE (NEGATIVE); PROTEIN,URINE NEGATIVE (NEGATIVE)
[2020-12-16 19:21] LABS: ALBUMIN 4.1 GM/DL (3.2-4.5); CHLORIDE 108 MMOL/L (98-107); SODIUM 139 MMOL/L (135-145)
[2020-12-16 19:22] LABS: CALCIUM 9.1 MG/DL (8.5-10.1)
[2020-12-16 19:23] LABS: GLUCOSE 86 MG/DL (70-105); TOTAL PROTEIN 7.4 GM/DL (6.4-8.2)
[2020-12-16 19:24] LABS: CARBON DIOXIDE 18 MMOL/L (21-32)
[2020-12-16 19:25] LABS: BILIRUBIN,TOTAL 0.9 MG/DL (0.1-1.0)
[2020-12-16 19:27] LABS: BACTERIA,URINE FEW /HPF; RBC,URINE 0-2 /HPF; WBC,URINE RARE /HPF
[2020-12-16 19:27] LABS: ALKALINE PHOSPHATASE 58 U/L (40-136); CREATININE SERUM 1.02 MG/DL (0.60-1.30); GFR ESTIMATED > 60
[2020-12-16 19:28] LABS: AMORPHOUS SEDIMENT,UR RARE AMOR URATES /LPF
[2020-12-16 19:28] LABS: BUN/CREATININE RATIO 11
[2020-12-16 19:30] LABS: ALANINE AMINOTRANSFERASE 15 U/L (0-55)
[2020-12-16] MEDS ORDERED: ONDANSETRON 4 MG/2 ML (SDV) Z0FRAN IVP ONE (19:30)
[2020-12-16] MEDS ORDERED: NS IV 1000 ML 1,000 ML IV SCH (19:30)
[2020-12-16] MEDS ORDERED: KETOROLAC 30 MG/ML VIAL IVP ONE (19:30)
[2020-12-16] MEDS ORDERED: CEPH500T PO (19:36)
[2020-12-16] MEDS ORDERED: ONDA8TAB13 PO (19:36)
[2020-12-16 20:06] VITALS: BP 151/99
== END 2020-12-16 20:06 | disposition home or self-care (01) ==
LOC: EDUNIT# 17:36 → ER 17:38
DX: K02.9 Dental caries, unspecified (principal); F41.0 Panic disorder [episodic paroxysmal anxiety]; I10 Essential (primary) hypertension; F31.9 Bipolar disorder, unspecified; F43.10 Post-traumatic stress disorder, unspecified; E03.9 Hypothyroidism, unspecified; K21.9 Gastro-esophageal reflux disease without esophagitis; G43.909 Migraine, unspecified, not intractable, without status migrainosus; J45.909 Unspecified asthma, uncomplicated; F17.210 Nicotine dependence, cigarettes, uncomplicated; F17.290 Nicotine dependence, other tobacco product, uncomplicated; Z79.899 Other long term (current) drug therapy; Z88.0 Allergy status to penicillin; Z88.2 Allergy status to sulfonamides; Z91.5 Personal history of self-harm; Z32.02 Encounter for pregnancy test, result negative
CPT/HCPCS: 36415; 80053; 81000; 84703; 85025

== ENCOUNTER 2021-02-12 21:33 | Emergency (ER) | payer SELFPAY ==
[~2021-02-12] VITALS: Ht 147.8 cm; Wt 90.7 kg
[~2021-02-12 21:33] MED LIST changes: +CEPH500T PO; +ONDA8TAB13 PO
[2021-02-12 21:55] LABS: BILIRUBIN,URINE NEGATIVE (NEGATIVE); CLARITY,URINE CLEAR; COLOR,URINE YELLOW; GLUCOSE, URINE (UA) NEGATIVE (NEGATIVE); KETONES,URINE NEGATIVE (NEGATIVE); LEUKOCYTE ESTERASE ,URINE NEGATIVE (NEGATIVE); NITRITE,URINE NEGATIVE (NEGATIVE); PH,URINE 7.5 (5-9); PROTEIN,URINE NEGATIVE (NEGATIVE)
[2021-02-12 22:03] LABS: AMORPHOUS SEDIMENT,UR FEW AMOR PHOSPHATE /LPF; BACTERIA,URINE NEGATIVE /HPF; SQUAMOUS EPITHELIAL CELL,UR RARE /HPF
[2021-02-12 22:18] LABS: BASOPHILS # (AUTO) 0.1 10^3/uL (0.0-0.1); BASOPHILS % (AUTO) 1 % (0-10); EOSINOPHILS # (AUTO) 0.5 10^3/uL (0.0-0.3); EOSINOPHILS % (AUTO) 5 % (0-10); HEMATOCRIT 39 % (35-52); HEMOGLOBIN 13.4 g/dL (11.5-16.0); LYMPHOCYTES # (AUTO) 2.2 10^3/uL (1.0-4.0); LYMPHOCYTES % (AUTO) 24 % (12-44); MEAN CORPUSCULAR HEMOGLOBIN 32 pg (25-34); MEAN CORPUSCULAR HGB CONC 34 g/dL (32-36); MEAN CORPUSCULAR VOLUME 94 fL (80-99); MEAN PLATELET VOLUME 11.1 fL (9.0-12.2); MONOCYTES # (AUTO) 0.7 10^3/uL (0.0-1.0); MONOCYTES % (AUTO) 7 % (0-12); NEUTROPHILS % (AUTO) 64 % (42-75); PLATELET COUNT 360 10^3/uL (130-400); WHITE BLOOD COUNT 9.4 10^3/uL (4.3-11.0)
[2021-02-12] MEDS ORDERED: hydrALAZINE (APESOLINE) 20 MG/ML VIAL IV ONE (22:30)
[2021-02-12] MEDS ORDERED: LACTATED RINGERS 1,000 ML IV ONE (22:30)
[2021-02-12] MEDS ORDERED: PANTOPRAZOLE 40 MG (PROTONIX) VIAL IV ONE (22:30)
[2021-02-12] MEDS ORDERED: ONDANSETRON 4 MG/2 ML (SDV) Z0FRAN IVP ONE (22:30)
[2021-02-12 22:51] LABS: ALANINE AMINOTRANSFERASE 18 U/L (0-55); ALBUMIN 4.1 GM/DL (3.2-4.5); ALKALINE PHOSPHATASE 57 U/L (40-136); AMYLASE 69 U/L (25-125); BILIRUBIN,TOTAL 0.7 MG/DL (0.1-1.0); BUN/CREATININE RATIO 16; CALCIUM 10.3 MG/DL (8.5-10.1); CARBON DIOXIDE 24 MMOL/L (21-32); CHLORIDE 106 MMOL/L (98-107); CREATININE SERUM 0.82 MG/DL (0.60-1.30); GFR ESTIMATED > 60; GLUCOSE 99 MG/DL (70-105); LIPASE 24 U/L (8-78); POTASSIUM 3.8 MMOL/L (3.6-5.0); SODIUM 138 MMOL/L (135-145); TOTAL PROTEIN 6.9 GM/DL (6.4-8.2)
[2021-02-12] MEDS ORDERED: HOLD METFORMIN - RECEIVED CONTRAST 20 ML VIAL IV SCH (23:30)
[2021-02-12] MEDS ORDERED: NS 100 ML (IVPB) BAG IV ONE (23:30)
[2021-02-12] MEDS ORDERED: IOHEXOL 350 MG/ML 100 ML (OMNIPAQUE 350) VIAL IV ONE (23:30)
[2021-02-12] MEDS ORDERED: CATHETER FLUSH 10 ML SYR IV PRN (23:30)
[2021-02-13] MEDS ORDERED: hydrALAZINE (APESOLINE) 20 MG/ML VIAL IV ONE
[2021-02-13] MEDS ORDERED: HYOSCYAMINE 0.125 MG (LEVSIN) TAB PO ONE
[2021-02-13] MEDS ORDERED: DICYCLOMINE 10 MG/ML (BENTYL) 2 ML AMP IM ONE
[2021-02-13 00:06] LABS: AMPHETAMINE SCREEN, URINE NEGATIVE (NEGATIVE); BARBITURATE SCREEN URINE NEGATIVE (NEGATIVE); BENZODIAZEPINES SCREEN URINE POSITIVE (NEGATIVE); CANNABINOID SCREEN, URINE POSITIVE (NEGATIVE); COCAINE SCREEN URINE NEGATIVE (NEGATIVE); METHADONE STAT NEGATIVE (NEGATIVE); METHAMPHETAMINE SCREEN URINE S NEGATIVE (NEGATIVE); OPIATE SCREEN URINE POSITIVE (NEGATIVE); OXYCODONE STAT NEGATIVE (NEGATIVE); PROPOXYPHENE STAT NEGATIVE (NEGATIVE); TRICYCLIC ANTIDEPRESSANTS SCRE NEGATIVE (NEGATIVE)
[2021-02-13] MEDS ORDERED: PANT40TA2 PO (00:26)
[2021-02-13] MEDS ORDERED: ONDA8TAB13 PO (00:26)
[2021-02-13] MEDS ORDERED: DICY20TA10 PO (00:26)
[2021-02-13] MEDS ORDERED: HYOS0.1283 SL (00:26)
--- NOTE | 2021-02-13 00:26 | ED Abdominal Pain ---
General Chief Complaint: Abdominal/GI Problems Stated Complaint: ABD PAIN,FEVER,TREMORS,BACK PAIN Nursing Triage Note: PATIENT STATES THAT SHE HAS HAD "GI ISSUES" AND INTERMITT. ABD PAIN FOR YEARS. HER BOWEL MOVEMENTS GO BETWEEN DIARRHEA AND CONSTIPATION. TODAY SHE ALSO VOMITTED, WHICH IS NOT UNCOMMON FOR HER. SHE ALSO STATES THAT SHE HAS HAD A FEVER "FOR THE PAST COUPLE OF DAYS". Sepsis Screen: No Definite Risk Source of Information: Patient History of Present Illness Date Seen by Provider: Feb 12, 2021 Time Seen by Provider: 21:40 Initial Comments PT ARRIVES VIA POV FROM HOME PT WITH MULTIPLE COMPLAINTS C/O ABDOMINAL PAIN --THIS IS A CHRONIC PROBLEM FOR MANY YEARS, SINCE SHE WAS A TEENAGER PAIN IS GENERALIZED PAIN HAS BEEN WORSE SINCE SEPTEMBER, AND WORSE THE LAST COUPLE OF DAYS C/O NAUSEA, VOMITED X 1 TODAY--THIS IS ALSO A CHRONIC PROBLEM. NO HEMATEMESIS OR COFFEE-GROUND EMESIS C/O DIARRHEA X 1 TODAY. ALSO A CHRONIC PROBLEM, AND ALTERNATES WITH CHRONIC CONSTIPATION. NO BLACK/BLOODY/TARRY STOOLS STATES EATING OR DRINKING ANYTHING INCLUDING WATER, WORSENS SYMPTOMS DESCRIBES GERD SYMPTOMS WELL STATES PAIN IS WORSE IN EPIGASTRIC AREA AND RADIATES STRAIGHT THROUGH TO HER BACK HAS NOT TAKEN ANYTHING FOR SYMPTOMS SYMPTOMS NO DIFFERENT TODAY HAS NOT SOUGHT CARE UNTIL TODAY ALSO C/O SUBJECTIVE FEVER/SWEATS.CHILLS FOR THE LAST 2 DAYS NO PROBLEMS URINATING AND VOIDING A NORMAL AMOUNT NO COUGH OR RESPIRATORY SYMPTOMS NO HEADACHE NO BODY ACHES NO LOSS OF TASTE/SMELL HAS NOT HAD COVID-19 VACCINE LMP 02/08/21. NORMAL. 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 [employer] PT HAS HISTORY OF HTN, BUT HAS NOT BEEN TAKING HER MEDICATIONS--JUST SIMPLY QUIT TAKING THEM PT ALSO HAS HISTORY OF BIPOLAR--HAS NOT BEEN TAKING THOSE MEDICATIONS EITHER PT SMOKES MARIJUANA ON A REGULAR BASIS "TO HELP WITH THE PAIN AND NAUSEA" PCP: KAREN,EWA FALCON Allergies and Home Medications Allergies Coded Allergies: Sulfa (Sulfonamide Antibiotics) (Unverified Allergy, Unknown, 07/25/14) penicillin G (Verified Allergy, Unknown, 07/25/14) Home Medications Amlodipine Besylate 5 Mg Tablet, 5 MG PO DAILY, (Reported) Cefdinir 300 Mg Capsule, 300 MG PO BID Prescribed by: JACOB BENITEZ on 10/08/19 1452 Cephalexin 500 Mg Tablet, 500 MG PO TID Prescribed by: ELANA GRIJALVA on 12/16/201935 Citalopram Hydrobromide 40 Mg Tablet, 1 EACH PO DAILY, (Reported) Clindamycin HCl 300 Mg Capsule, 300 MG PO Q6H Prescribed by: ANUPAM DEWITT MD on 07/01/19842 Dicyclomine HCl 20 Mg Tablet, 20 MG PO Q6H Prescribed by: FRANKLIN PRESTON on 02/13/2125 Hydrocodone/Acetaminophen 1 Each Tablet, 1-2 EACH PO Q6H PRN for PAIN-MODERATE Prescribed by: ANUPAM DEWITT MD on 07/01/19842 Hyoscyamine Sulfate 0.125 Mg Tab.subl, 0.25 MG SL Q4H Prescribed by: FRANKLIN PRESTON on 02/13/2125 Levothyroxine Sodium 200 Mcg Tablet, 225 MCG PO DAILY, (Reported) Meloxicam 7.5 Mg/5 Ml Oral.susp, 7.5 MG PO BID, (Reported) Ondansetron 8 Mg Tab.rapdis, 8 MG PO Q6H PRN for NAUSEA/VOMITING Prescribed by: ELANA GRIJALVA on 12/16/201935 Ondansetron 8 Mg Tab.rapdis, 8 MG PO Q4H PRN for NAUSEA/VOMITING Prescribed by: FRANKLIN PRESTON on 02/13/2125 Pantoprazole Sodium 40 Mg Tablet.dr, 40 MG PO DAILY Prescribed by: FRANKLIN PRESTON on 02/13/2125 Tizanidine HCl 4 Mg Capsule, 4 MG PO BID, (Reported) Patient Home Medication List Home Medication List Reviewed: Yes Review of Systems Review of Systems Constitutional: no symptoms reported, chills, diaphoresis, dizziness, fever, malaise EENTM: No Symptoms Reported Respiratory: No Symptoms Reported; Denies Cough, Denies Shortness of Air Cardiovascular: No Symptoms Reported Gastrointestinal: See HPI, Abdominal Pain, Constipated, Diarrhea, Nausea, Vomiting Genitourinary: No Symptoms Reported Musculoskeletal: see HPI, back pain Skin: no symptoms reported Psychiatric/Neurological: No Symptoms Reported Endocrine: No Symptoms Reported Hematologic/Lymphatic: No Symptoms Reported Past Qzafcig-Noikwi-Jpthjq Hx Past Med/Social Hx: Reviewed and Corrections made Patient Social History Alcohol Use: Occasionally Uses Drug of Choice: MARIJUANA, OPIATES, ALSO TESTED + FOR METH Smoking Status: Current Everyday Smoker (1 PPD, PLUS VAPES) Type Used: Cigarettes, Electronic/Vapor 2nd Hand Smoke Exposure: Yes Recent Infectious Disease Expo: No Recent Hopitalizations: No Substance type: Methamphetamine, Opiates/Opioids, Marijuana Seasonal Allergies Seasonal Allergies: No Past Medical History Surgeries: Yes (ORBITAL/FACIAL RECONSTRUCTION,MOLE REMOVALS,WISDOM TEETH REMOVAL, I&D'S) Eye Surgery, Orthopedic Respiratory: Yes Asthma, Chronic Bronchitis Cardiac: Yes Hypertension Neurological: Yes Concussion, Headaches /Migraines, Traumatic Brain Injury : No Last Menstrual Period: Feb 08, 2021 Female Reproductive Disorders: Denies Sexually Transmitted Disease: Yes (HERPES) HIV/AIDS: No Genitourinary: No Gastrointestinal: Yes (CHRONIC ABDOMINAL PAIN ) Gastroesophageal Reflux, Chronic Constipation, Chronic Diarrhea Musculoskeletal: No Endocrine: Yes Hypothyroidsim, Pituitary Disease Cancer: No Psychosocial: Yes (PANIC ATTACKS) ADD/ADHD, Sleep Difficulties, Anxiety, PTSD, Bipolar, Depression Integumentary: Yes (ORAL AND GENITAL, "STAPH" AXILLARY ABSCESS ) Eczema, Herpes Blood Disorders: No Adverse Reaction/Blood Tranf: No Physical Exam Vital Signs Vital Signs - First Documented 02/12/21 21:45 Temp 37.3 Pulse 66 Resp 18 B/P (MAP) 190/117 (141) Pulse Ox 98 O2 Delivery Room Air Capillary Refill : Less Than 3 Seconds Height/Weight/BMI Height: 4'11.00" Weight: 150lbs. oz. 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, no motor/sensory deficits, alert, normal mood/affect, oriented x 3 Skin: normal color, warm/dry; No rash Progress/Results/Core Measures Results/Orders Lab Results Laboratory Tests Test 02/12/21 21:46 02/12/21 22:09 Range/Units Urine Color YELLOW Urine Clarity CLEAR Urine pH 7.5 5-9 Urine Specific [place] 1.020 1.016-1.022 Urine Protein NEGATIVE NEGATIVE Urine Glucose (UA) NEGATIVE NEGATIVE Urine Ketones NEGATIVE NEGATIVE Urine Nitrite NEGATIVE NEGATIVE Urine Bilirubin NEGATIVE NEGATIVE Urine Urobilinogen 0.2 < = 1.0 MG/DL Urine Leukocyte Esterase NEGATIVE NEGATIVE Urine RBC (Auto) NEGATIVE NEGATIVE Urine RBC NONE /HPF Urine WBC NONE /HPF Urine Squamous Epithelial Cells RARE /HPF Urine Crystals NONE /LPF Urine Amorphous Sediment FEW GIORGI PHOSPHATE H /LPF Urine Bacteria NEGATIVE /HPF Urine Casts NONE /LPF Urine Mucus NEGATIVE /LPF Urine Culture Indicated NO Urine Test NEGATIVE NEGATIVE Urine Opiates Screen POSITIVE H NEGATIVE Urine Oxycodone Screen NEGATIVE NEGATIVE Urine Methadone Screen NEGATIVE NEGATIVE Urine Propoxyphene Screen NEGATIVE NEGATIVE Urine Barbiturates Screen NEGATIVE NEGATIVE Ur Tricyclic Antidepressants Screen NEGATIVE NEGATIVE Urine Phencyclidine Screen NEGATIVE NEGATIVE Urine Amphetamines Screen NEGATIVE NEGATIVE Urine Methamphetamines Screen NEGATIVE NEGATIVE Urine Benzodiazepines Screen POSITIVE H NEGATIVE Urine Cocaine Screen NEGATIVE NEGATIVE Urine Cannabinoids Screen POSITIVE H NEGATIVE White Blood Count 9.4 4.3-11.0 10^3/uL Red Blood Count 4.13 3.80-5.11 10^6/uL Hemoglobin 13.4 11.5-16.0 g/dL Hematocrit 39 35-52 % Mean Corpuscular Volume 94 80-99 fL Mean Corpuscular Hemoglobin 32 25-34 pg Mean Corpuscular Hemoglobin Concent 34 32-36 g/dL Red Cell Distribution Width 12.5 10.0-14.5 % Platelet Count 360 130-400 10^3/uL Mean Platelet Volume 11.1 9.0-12.2 fL Immature Granulocyte % (Auto) 0 % Neutrophils (%) (Auto) 64 42-75 % Lymphocytes (%) (Auto) 24 12-44 % Monocytes (%) (Auto) 7 0-12 % Eosinophils (%) (Auto) 5 0-10 % Basophils (%) (Auto) 1 0-10 % Neutrophils # (Auto) 6.0 1.8-7.8 10^3/uL Lymphocytes # (Auto) 2.2 1.0-4.0 10^3/uL Monocytes # (Auto) 0.7 0.0-1.0 10^3/uL Eosinophils # (Auto) 0.5 H 0.0-0.3 10^3/uL Basophils # (Auto) 0.1 0.0-0.1 10^3/uL Immature Granulocyte # (Auto) 0.0 0.0-0.1 10^3/uL Sodium Level 138 135-145 MMOL/L Potassium Level 3.8 3.6-5.0 MMOL/L Chloride Level 106 98-107 MMOL/L Carbon Dioxide Level 24 21-32 MMOL/L Anion Gap 8 5-14 MMOL/L Blood Urea Nitrogen 13 7-18 MG/DL Creatinine 0.82 0.60-1.30 MG/DL Estimat Glomerular Filtration Rate > 60 BUN/Creatinine Ratio 16 Glucose Level 99 70-105 MG/DL Calcium Level 10.3 H 8.5-10.1 MG/DL Corrected Calcium 10.2 H 8.5-10.1 MG/DL Total Bilirubin 0.7 0.1-1.0 MG/DL Aspartate Amino Transf (AST/SGOT) 20 5-34 U/L Alanine Aminotransferase (ALT/SGPT) 18 0-55 U/L Alkaline Phosphatase 57 40-136 U/L Total Protein 6.9 6.4-8.2 GM/DL Albumin 4.1 3.2-4.5 GM/DL Amylase Level 69 25-125 U/L Lipase 24 8-78 U/L Influenza Type A (RT-PCR) Not Detected Not Detecte Influenza Type B (RT-PCR) Not Detected Not Detecte SARS-CoV-2 RNA (RT-PCR) Not Detected Not Detecte My Orders Orders - FRANKLIN PRESTON DO Urine Bedside (02/12/21 21:40) Ua Culture If Indicated (02/12/21 21:40) Ed Iv/Invasive Line Start (02/12/21 22:11) Monitor-Rhythm Ecg Trace Only (02/12/21 22:11) Amylase (02/12/21 22:11) Cbc With Automated Diff (02/12/21 22:11) Comprehensive Metabolic Panel (02/12/21 22:11) Lipase (02/12/21 22:11) Influenza A And B By Pcr (02/12/21 22:11) Covid 19 Inhouse Test (02/12/21 22:11) Hcg,Qualitative Urine (02/12/21 22:14) Ondansetron Injection (Zofran Injectio (02/12/21 22:30) Pantoprazole Injection (Protonix Injecti (02/12/21 22:30) Ed Iv/Invasive Line Start (02/12/21 22:26) Lactated Ringers (Lr 1000 Ml Iv Solution (02/12/21 22:30) Hydralazine Injection (Apresoline Inject (02/12/21 22:30) Ct Abdomen/Pelvis W (02/12/21 22:45) Drug Screen Stat (Urine) (02/12/21 23:19) Iohexol Injection (Omnipaque 350 Mg/Ml 1 (02/12/21 23:30) Received Contrast (Hold Metformin- Contr (02/12/21 23:30) Sodium Chloride Flush (Catheter Flush Sy (02/12/21 23:30) Ns (Ivpb) (Sodium Chloride 0.9% Ivpb Bag (02/12/21 23:30) Hydralazine Injection (Apresoline Inject (02/13/21 00:00) Hyoscyamine Sl Tablet (Levsin Sl Tablet) (02/13/21 00:00) Dicyclomine Injection (Bentyl Injection) (02/13/21 00:00) Medications Given in ED Vital Signs/I&O 02/12/21 02/13/21 21:45 00:50 Temp 37.3 36.9 Pulse 66 70 Resp 18 22 B/P (MAP) 190/117 (141) 149/107 Pulse Ox 98 98 O2 Delivery Room Air Room Air 02/13/21 00:00 Intake Total 1000 ml Balance 1000 ml Blood Pressure Mean: 141 Progress Progress Note : Progress Note PLACED IN ISOLATION ROOM PPE WORN AT ALL TIMES COVID-19 TESTING PERFORMED GIVEN IV FLUIDS, PROTONIX, ZOFRAN WITH IMPROVEMENT IN NAUSEA GIVEN HYDRALAZINE FOR BLOOD PRESSURE WITH IMPROVEMENT UNEVENTFUL ER STAY DISCUSSED IMPORTANCE OF FOLLOW UP, AND MAY NEED ADDITIONAL OUTPATIENT TESTS FOR FURTHER EVAULATION OF CHRONIC ABDOMINAL PAIN AND GI COMPLAINTS ALSO DISCUSSED IMPORTANCE OF STOPPING MARIJUANA USE AND OPIATE USE, THESE MAY ALSO CAUSE THESE SYMPTOMS ALSO DISCUSSED IMPORTANCE OF TAKING HER BLOOD PRESSURE AND FOLLOW UP WITH [facility] FOR FURTHER EVALUATION OF THIS Diagnostic Imaging Comments CT ABDOMEN/PELVIS--HEPATOMEGALY WITH FATTY LIVER, CONTRACTED GALLBLADDER WITH NONSPECIFIC WALL THICKENING, OTHERWISE NO ACUTE PROCESS, PER [facility] VIA FAX AT [id number] Reviewed: Reviewed by Me Departure Impression Primary Impression: Epigastric abdominal pain Additional Impressions: HTN (hypertension) Marijuana use Illicit drug use Opiate use Chronic abdominal pain Non-compliance Disposition: 01 HOME, SELF-CARE Condition: Improved Departure-Patient Inst. Decision time for Depature: 00:20 Referrals: [facility] (PCP/Family) Primary Care Physician Patient Instructions: Abdominal Pain, Adult ED, Drug Abuse and Drug Addiction (DC), High Blood Pressure (DC), Marijuana Use and Addiction (DC), Opioid Use Disorder Add. Discharge Instructions: CLEAR LIQUIDS--WATER,BROTH, JELLO, GATORADE NO FOOD UNTIL YOUR PAIN IS GONE WHEN YOUR PAIN IS GONE, ADD BRATS DIET TO CLEAR LIQUIDS--BANANAS, RICE, APPLESAUCE, TOAST, SALTINES NO MARIJUANA USE NO OPIATE USE TAKE YOUR BLOOD PRESSURE MEDICATION PRESCRIBED--DO NOT MISS DOSES FOLLOW UP WITH DR. NELSON, GENERAL SURGEON, NEXT WEEK FOR FURTHER CARE All discharge instructions reviewed with patient and/or family. Voiced understanding. Scripts Pantoprazole Sodium (Protonix) 40 Mg Tablet.dr 40 MG PO DAILY, #15 TAB Prov: FRANKLIN PRESTON DO 02/13/21 Dicyclomine HCl (Dicyclomine HCl) 20 Mg Tablet 20 MG PO Q6H for Abdominal Pain, #20 TAB Prov: FRANKLIN PRESTON DO 02/13/21 Hyoscyamine Sulfate (Levsin-Sl) 0.125 Mg Tab.subl 0.25 MG SL Q4H, #15 TAB Prov: FRANKLIN PRESTON DO 02/13/21 Ondansetron (Ondansetron Odt) 8 Mg Tab.rapdis 8 MG PO Q4H PRN for NAUSEA/VOMITING, #10 TAB Prov: FRANKLIN PRESTON DO 02/13/21 Work/School Note: Work Release Form Date Seen in the Emergency Department: Feb 12, 2021 FRANKLIN PRESTON DO Feb 13, 2021 00:26
[2021-02-13 00:50] VITALS: BP 149/107
--- NOTE | 2021-02-13 06:58 | Diagnostic Imaging Report ---
PROCEDURE: CT abdomen and pelvis with contrast. TECHNIQUE: Multiple contiguous axial images were obtained through the abdomen and pelvis after administration of intravenous contrast. Auto Exposure Controls were utilized during the CT exam to meet ALARA standards for radiation dose reduction. All CT scans use one or more of the following dose optimizing techniques: automated exposure control, MA and/or KvP adjustment based on patient size and exam type or iterative reconstruction. INDICATION: Epigastric pain There are no prior CT abdomen/pelvis examinations available for comparison. The liver is borderline enlarged and the low density appearance of the liver does suggest fatty metamorphosis. There is no focal mass involving the liver. The gallbladder is not fully distended and consequently difficult to assess. There is no clear evidence for acute cholecystitis or cholelithiasis. The spleen, pancreas, adrenals, kidneys, aorta and inferior vena cava and portal vein are unremarkable for an acute abnormality. The stomach is partially filled with fluid and particulate matter and difficult to assess. There is no pelvic mass or free fluid collection identified. The urinary bladder and uterus are grossly unremarkable. The appendix was not particularly well visualized but there are no indirect signs of acute appendicitis. The bone windows show no sign of a fracture or of a destructive lesion. The lung bases are clear. IMPRESSION: 1. There is no acute abnormality of the abdomen or pelvis identified. 2. The gallbladder is not fully distended and consequently difficult to assess. If further evaluation of the gallbladder is desired, then ultrasound would be recommended. 3. There is borderline hepatomegaly with fatty metamorphosis of the liver. 4. I agree with the [facility] interpretation of this exam. Dictated by: Dictated on workstation # [id number]
== END 2021-02-13 00:50 | disposition home or self-care (01) ==
LOC: EDUNIT# 21:33 → ER 21:35
DX: G89.29 Other chronic pain (principal); R10.13 Epigastric pain; I10 Essential (primary) hypertension; F12.90 Cannabis use, unspecified, uncomplicated; F19.90 Other psychoactive substance use, unspecified, uncomplicated; F11.90 Opioid use, unspecified, uncomplicated; R11.2 Nausea with vomiting, unspecified; J45.909 Unspecified asthma, uncomplicated; Z91.19 Patient's noncompliance with other medical treatment and regimen; K21.9 Gastro-esophageal reflux disease without esophagitis; E03.9 Hypothyroidism, unspecified; F41.9 Anxiety disorder, unspecified; F31.9 Bipolar disorder, unspecified; F17.210 Nicotine dependence, cigarettes, uncomplicated; F17.290 Nicotine dependence, other tobacco product, uncomplicated; Z79.890 Hormone replacement therapy; Z79.899 Other long term (current) drug therapy; Z79.1 Long term (current) use of non-steroidal anti-inflammatories (NSAID)
CPT/HCPCS: 36415; 74177; 80053; 80306; 81000; 82150; 83690; 84703; 85025; 87636; 93041

== ENCOUNTER → 2021-02-21 | Outpatient (CLI) | payer SELFPAY ==
[~2021-02-21] MED LIST changes: +CELE100C PO; +DICY20TA10 PO; +GBPN600T PO; +HYOS0.1283 SL; +LEVO88TA2 PO; +PANT40TA2 PO; +TRZ50T PO
--- NOTE | 2021-02-21 09:13 | Diagnostic Imaging Report ---
PROCEDURE: US Gallbladder. TECHNIQUE: Multiple real-time grayscale images were obtained over the right upper quadrant in various projections. INDICATION: Right upper quadrant pain Liver parenchyma is homogeneous with normal echotexture. Right kidney measures 10 cm in length and appears normal. Portal vein is patent with hepatopetal flow. Common duct is not dilated. There is a small calculus in the gallbladder. Gallbladder wall is not thickened. Pancreas is unremarkable. Aorta and IVC appear normal. IMPRESSION: Cholecystolithiasis Dictated by: Dictated on workstation # [id number]
== END ==
LOC: RAD 07:30
PROVIDERS: ATTEND Surgery
DX: K80.20 Calculus of gallbladder without cholecystitis without obstruction (principal)
CPT/HCPCS: 76705

== ENCOUNTER 2021-02-24 06:41 | Outpatient (CLI) | payer SELFPAY ==
[~2021-02-24] VITALS: Ht 147.3 cm; Wt 88.3 kg
[~2021-02-24 06:41] MED LIST changes: -CELE100C PO; -GBPN600T PO; -LEVO88TA2 PO; -TRZ50T PO
[2021-02-24] MEDS ORDERED: CELE100C PO (12:26)
[2021-02-24] MEDS ORDERED: GBPN600T PO (12:26)
[2021-02-24] MEDS ORDERED: TRZ50T PO (12:26)
[2021-02-24] MEDS ORDERED: LEVO88TA2 PO (12:26)
== END 2021-02-28 08:59 | disposition home or self-care (01) ==
LOC: PREOP 06:41
PROVIDERS: ATTEND Surgery
DX: Z01.818 Encounter for other preprocedural examination (principal)

== ENCOUNTER 2021-03-03 12:30 | Day surgery (SDC) | payer SELFPAY ==
[~2021-03-03] VITALS: Ht 147.3 cm; Wt 88.3 kg
[2021-03-03] VITALS (9 sets, daily range): BP systolic 114–160; BP diastolic 57–94
[~2021-03-03 12:30] MED LIST changes: +CELE100C PO; +CLINDAMYCIN 600 MG/50 ML IVPB 50 ML IV ONE; +GBPN600T PO; +LEVO88TA2 PO; +TRZ50T PO
--- NOTE | 2021-03-03 12:43 | Progress Note-Pre Operative ---
Pre-Operative Progress Note H&P Reviewed The H&P was reviewed, patient examined and no changes noted. Date Seen by Provider: Mar 03, 2021 Time Seen by Provider: 12:30 Date H&P Reviewed: Mar 03, 2021 Time H&P Reviewed: 12:30 Pre-Operative Diagnosis: biliary dyskinesia HEATH NELSON MD Mar 03, 2021 12:43
[2021-03-03] MEDS ORDERED: morphine INJ 10 MG/ML 1ML (SYR OR VIAL) IVP PRN ×2 (12:45)
[2021-03-03] MEDS ORDERED: ACETAMINOPHEN 325 MG TABLET PO PRN (12:45)
[2021-03-03] MEDS ORDERED: ONDANSETRON 4 MG/2 ML (SDV) Z0FRAN IVP PRN ×2 (12:45→15:30)
[2021-03-03] MEDS ORDERED: HYDR-3817 PO (12:45)
[2021-03-03] MEDS ORDERED: oxyCODONE/APAP 5/325MG (PERCOCET 5) TABLET PO PRN (12:45)
--- NOTE | 2021-03-03 12:46 | Discharge Inst-Surgical ---
D/C Lap Instructions-LESLIE New, Converted, or Re-Newed RX: RX on Chart Follow Up Appt in 2 weeks Activity as tolerated No driving for 24 hours No driving while on pain medications Incentive Spirometry use every 2 hours while awake Regular Diet Symptoms to Report: Fever over 101 degree F, Nausea/Vomiting Infection Signs and Symptoms to report: Increased redness, Foul odor of wound, Increased drainage Bathing instructions: May shower Operative Area Clean/Dry; Keep incision clean/dry If any problems/questions: Contact your physician or go to Emergency Room HEATH NELSON MD Mar 03, 2021 12:46
[2021-03-03] MEDS ORDERED: CLINDAMYCIN 600 MG/50 ML IVPB 50 ML IV ONE (12:57)
[2021-03-03] MEDS: LACTATED RINGERS 1,000 ML IV PRN ×2 (13:00→14:44)
[2021-03-03] MEDS ORDERED: proPOfol 200 MG/20 ML (DIPRIVAN) VIAL IV ONE (13:13)
[2021-03-03] MEDS ORDERED: ROCURONIUM 10 MG/ML 5 ML SYRINGE IV ONE (13:13)
[2021-03-03] MEDS ORDERED: ONDANSETRON 4 MG/2 ML (SDV) Z0FRAN ONE ×3 (13:13→15:15)
[2021-03-03] MEDS ORDERED: LIDOCAINE PF 2% 5 ML (XYLOCAINE) VIAL ONE (13:14)
[2021-03-03] MEDS ORDERED: LIDOCAINE/EPI 2% 1:100,00 (XYLOCAINE) 20 ML VIAL ONE (13:27)
[2021-03-03] MEDS ORDERED: CITA40TA19 PO (13:30)
[2021-03-03] MEDS ORDERED: DICL35CA3 PO (13:37)
[2021-03-03] MEDS ORDERED: ONDN4T PO (13:37)
[2021-03-03] MEDS ORDERED: HYCOSAMINE SL (13:37)
[2021-03-03] MEDS ORDERED: fentaNYL INJ 100 MCG/2 ML AMP ONE (14:05)
[2021-03-03] MEDS ORDERED: MIDAZOLAM 2 MG/2 ML (VERSED) VIAL ONE (14:05)
[2021-03-03] MEDS ORDERED: KETOROLAC 30 MG/ML VIAL ONE (14:48)
[2021-03-03] MEDS ORDERED: GLYCOPYRROLATE 0.2 MG/ML (ROBINUL) 2 ML VIAL ONE (14:51)
[2021-03-03] MEDS ORDERED: NEOSTIGMINE 3 MG/3 ML VIAL ONE (14:51)
--- NOTE | 2021-03-03 14:58 | Progress Note-Post Operative ---
Post-Operative Progess Note Surgeon (s)/Tool Turret Lathe Set Up Operator (s) Surgeon HEATH NELSON MD Tool Turret Lathe Set Up Operator: heath bobo ENERGY SCHEDULER Pre-Operative Diagnosis GALL BLADDER DISEASE BILIARY DYSKINESIS Post-Operative Diagnosis same Procedure & Operative Findings Date of Procedure 03/03/21 Procedure Performed/Findings laparoscopic cholecystectomy Anesthesia Type get Estimated Blood Loss Estimated blood loss (mL): minimal Specimens/Packing Specimens Removed gallbladder HEATH NELSON MD Mar 03, 2021 14:58
[2021-03-03] MEDS ORDERED: SEVOFLURANE (ULTANE) 15 ML INHAL SOLN ONE (15:08)
[2021-03-03] MEDS ORDERED: HYDROmorphone 2 MG/ML VIAL (DILAUDID) ONE (15:23)
[2021-03-03] MEDS ORDERED: PROMETHAZINE INJ 25 MG/ML (PHENERGAN) AMP ONE (15:24)
[2021-03-03] MEDS ORDERED: HYDROmorphone 2 MG/ML VIAL (DILAUDID) IV ONE (15:30)
[2021-03-03] MEDS ORDERED: morphine INJ 10 MG/ML 1ML (SYR OR VIAL) IVP ONE (15:30)
[2021-03-03] MEDS ORDERED: PROMETHAZINE INJ 25 MG/ML (PHENERGAN) AMP IVP ONE (15:30)
[2021-03-03] MEDS ORDERED: oxyCODONE/APAP 5/325MG (PERCOCET 5) TABLET ONE (16:36)
--- NOTE | 2021-03-03 19:03 | OPERATIVE REPORT ---
DATE OF SERVICE: 03/03/2021 ATTENDING PRIMARY ROOM INSPECTOR: [facility]. PREOPERATIVE DIAGNOSIS: Symptomatic cholelithiasis. POSTOPERATIVE DIAGNOSIS: Symptomatic cholelithiasis. PROCEDURE: Laparoscopic cholecystectomy. SURGEON: Heath Nelson MD. CLINICAL APPLICATION MANAGER: Jag Spaulding APRN. ANESTHESIA: General endotracheal. ESTIMATED BLOOD LOSS: Minimal. FINDINGS: Distended gallbladder, biliary sludge. DISPOSITION: The patient tolerated the procedure well. INDICATIONS: The patient is a 30-year-old female who has had pain in the right upper abdominal quadrant with associated nausea and vomiting after meals for the past few years; however, in the recent months, it has become more frequent as well as more. The pain was much more severe recently and she was seen in the Emergency Department where a CT scan was performed followed by an ultrasound, which read cholelithiasis. DESCRIPTION OF PROCEDURE: The patient was brought to the operating room, laid supine on the table. After adequate IV pain and sedative medications and general endotracheal intubation, the abdomen was prepped and draped in standard surgical fashion. A 0.5% Marcaine with epinephrine was then used to anesthetize overlying skin left upper abdominal quadrant and a transverse skin incision made using 15 blade. An 0 silk suture was applied to the medial aspect of incision for retraction and a Veress needle inserted with a low opening pressure of 0 mmHg and the abdomen was then insufflated to 15 mmHg pressure. The Veress needle removed and a 5 mm XL trocar placed followed by a 5 mm 45-degree angle laparoscope visualizing the peritoneal cavity. A 4-quadrant abdominal exploration was performed. There was a distended gallbladder, no gallbladder wall thickening. Under direct visualization, we then proceeded to place a supraumbilical 10 mm port after the skin and peritoneal lining were anesthetized using 0.5% Marcaine with epinephrine and a transverse skin incision made using 15 blade. In a similar manner, a right upper abdominal quadrant 5 mm port was placed. The patient was then placed in reverse Trendelenburg position as well as plane right side up, left side down. The fundus of the gallbladder was then retracted anteriorly and superiorly. The hepatoduodenal ligament was then dissected using blunt dissection as well as electrocautery and hook instrument as well as a [place] dissector, the entire critical view of safety was identified including the triangle of Calot as well as the cystic duct and artery as the only two structures going into the gallbladder as well as the cystic plate behind the proximal gallbladder. A timeout was then taken, and the cystic duct and artery were clipped proximally and distally and cut with EndoShears. The gallbladder was then dissected off the liver bed using electrocautery and hook instrument with visualization of good hemostasis as well as no leaking ducts of Luschka. The gallbladder was removed through the 10 mm port site using an EndoCatch bag. The 10 mm port site fascia and peritoneum were then closed under direct visualization using a Jj-Zakia device and 0 Vicryl suture. The abdomen was desufflated and remaining ports removed. All skin incisions were closed using 4-0 Monocryl running subcuticular sutures. Wounds were then cleaned and covered with Dermabond. The patient tolerated the procedure well. We will start IV normal pain medication as well as a clear liquid diet. Once she is tolerating clears, has good pain control with oral pain medications, ambulating well, we will discharge her home. Job ID: [id number] DocumentID: [id number] Dictated Date: 03/03/2021 15:05:14 Client Relationship Consultant Date: 03/03/2021 19:02:10 Dictated By: HEATH NELSON MD
--- NOTE | 2021-03-08 07:05 | Anesthesia-General Post-Op ---
General Significant Intra-Op Events Notes post date entry from 03-03-21 at 1600 Patient Condition Mental Status/LOC: Same as Preop Cardiovascular: Satisfactory Nausea/Vomiting: Absent Respiratory: Satisfactory Pain: Controlled Complications: Absent Post Op Complications Complications None Follow Up Care/Instructions Patient Instructions None needed. Anesthesia/Patient Condition Patient Condition Patient is doing well, no complaints, stable vital signs, no apparent adverse anesthesia problems. No complications reported per nursing. LIYA ANTHONY CRNA Mar 08, 2021 07:05
== END 2021-03-03 17:20 | disposition home or self-care (01) ==
LOC: SDC 12:30
PROVIDERS: ATTEND Surgery
DX: K80.10 Calculus of gallbladder with chronic cholecystitis without obstruction (principal); I10 Essential (primary) hypertension; J45.909 Unspecified asthma, uncomplicated; F17.210 Nicotine dependence, cigarettes, uncomplicated; F32.9 Major depressive disorder, single episode, unspecified; F43.10 Post-traumatic stress disorder, unspecified; E66.01 Morbid (severe) obesity due to excess calories; R51.9 Headache, unspecified; E03.9 Hypothyroidism, unspecified; F41.9 Anxiety disorder, unspecified; G47.00 Insomnia, unspecified; K21.00 Gastro-esophageal reflux disease with esophagitis, without bleeding; Z88.0 Allergy status to penicillin; Z88.2 Allergy status to sulfonamides; Z91.040 Latex allergy status; Z68.41 Body mass index [BMI] 40.0-44.9, adult; Z79.1 Long term (current) use of non-steroidal anti-inflammatories (NSAID); Z79.899 Other long term (current) drug therapy; Z79.890 Hormone replacement therapy
CPT/HCPCS: 84703; 87081; 88304